=== PATIENT | female | born 1940 | race Caucasian/White ===

== ENCOUNTER 2017-06-12 12:20 | Inpatient (IN) ==
--- NOTE | 2017-06-12 12:28 | Emergency Department Note ---
Nausea/Vomiting/Diarrhea HPI - General Chief complaint: Nausea/Vomiting/Diarrhea Stated complaint: N/V, UTI, constipation Time Seen by Provider: 06/12/17 12:27 Mode of arrival: ambulatory - History of Present Illness HPI Narrative: 77-year-old female comes to the ER for abdominal pain. She states she's been having pain for several days and recently started vomiting. Vomiting started on Thursday, was seen here in the ER by Dr. Galeana when abdominal pelvic CT and labs were perfomed. There was some mild wall thickening and pericolonic inflammation on the CT. Patient also had a UTI and was treated with Septra. Patient returned the following day with nausea as a result of the antibiotic. Was told to stop Septra and start Cipro however she never collected the medicine from the pharmacy. Pain and vomiting has worsened and patient went to urgent care today and was sent over here by their provider. Currently complaining of nausea, vomiting, constipation (last bowel movement was 7 days ago), abdominal pain all over, worse at upper central abdomen. - Related Data Home Medications Medication Instructions Recorded Confirmed Naproxen (Pp) [Aleve (Pp)] 220 mg PO PRN PRN 06/08/17 06/12/17 Previous Rx's Medication Instructions Recorded HYDROcodone/APAP 5/325MG [[place] 1 tab PO Q6HP PRN #20 tab 05/19/16 5/325Mg] Allergies Allergy/AdvReac Type Severity Reaction Status Date / Time No Known Drug Allergies Allergy Verified 06/12/17 11:47 Review of Systems Constitutional: Denies: fever, chills Cardiovascular: Reports: edema (mild in ankles). Denies: chest pain, dyspnea on exertion Respiratory: Denies: cough, dyspnea, wheezes Gastrointestinal: Reports: as per HPI Genitourinary: Reports: urgency, dysuria, frequency Musculoskeletal: Reports: back pain (left lower). Denies: joint swelling Integumentary: Denies: rash Neurological: Denies: headache Past Medical History - Past Medical History Attestation: Yes: The following information was validated with the patient. Medical history: Reports: arthritis, other (Asthma). Denies: cancer, coronary artery disease, CVA, diabetes, hypertension, myocardial infarction, TIA Surgical history ED: Reports: appendectomy, cataract, cholecystectomy, other ( cardiac ablation of E- pathway, tubal ligation, carpal tunnel (2 left, 1 right ( ?)), left arm nerve (ulnar n.?), cervical fusion multilevel, bilateral breast implants.) - Social History smoking status: Never smoker Alcohol use: Reports: None, Occasionally (1-2 wine per week.) Drug use: Reports: none Physical Exam - General Limitations: no limitations General appearance: alert, in no apparent distress, other (appears tired. here with daughter) - Eye Eye exam: Present: normal appearance - ENT ENT exam: normal exam, normal oropharynx, mucous membranes dry, TM's normal bilaterally - Neck Neck exam: Present: normal inspection, full ROM. Absent: tenderness, meningismus, lymphadenopathy - Respiratory Respiratory exam: Present: normal lung sounds bilaterally. Absent: respiratory distress, wheezes - Cardiovascular Cardiovascular exam: Present: regular rate, normal rhythm - Abdominal Exam Abdominal exam: Present: soft, tenderness (diffusely tender, worse at right upper and central upper, unable to asses organomegaly or mass due to sensitivity ), hypoactive bowel sounds. Absent: distention - Extremities Exam Extremities exam: Present: normal inspection, full ROM, normal capillary refill. Absent: tenderness, pedal edema - Back Exam Back exam: Present: CVA tenderness (L). Absent: CVA tenderness (R) - Neurological Exam Neurological exam: Present: alert, oriented X3 - Psychiatric Psychiatric exam: Present: normal affect - Skin Skin exam: Present: warm, dry, intact. Absent: normal color (pale), rash Course Course Narrative: IV fluids, Rocephin 1 gram, Zofran and Dilaudid given. Pt is much more comfortable after Dilaudid. Has been NPO. Discussed with Dr. Huffman hospitalist at 1500. Admit to floor based on UTI and colitis, unable to keep down medications. Vital Signs Temperature 98.6 F 06/12/17 12:22 Pulse Rate 90 06/12/17 12:22 Respiratory Rate 18 06/12/17 12:22 Blood Pressure 125/80 06/12/17 12:22 Pulse Oximetry (%) 97 06/12/17 12:22 Temperature 98.6 F 06/12/17 17:22 Pulse Rate 85 06/12/17 17:22 Respiratory Rate 18 06/12/17 17:22 Blood Pressure 125/63 06/12/17 17:22 Pulse Oximetry (%) 93 06/12/17 17:22 Nausea/Vomiting/Diarrhea - Lab Data Lab results reviewed: Yes I reviewed the patient's lab results. Result diagrams: 06/12/17 13:30 Lab Results 06/12/17 06/12/17 06/12/17 Range/Units 13:30 13:30 15:45 WBC 10.3 (4.5-11.0) K/mcL RBC 4.15 (4.00-5.20) M/mcL Hgb 10.7 L (12.0-15.0) g/dL Hct 32.1 L (36.0-48.0) % POC Hct 33.0 L (36.0-48.0) % MCV 77.4 L (80.0-100.0) fL MCH 25.8 L (26.0-34.0) pg MCHC 33.3 (31.0-36.0) g/dL RDW 14.7 H (11.5-14.5) % Plt Count 317 (140-440) K/mcL MPV 8.3 (7.4-10.4) fL Gran % 84.8 H (38.0-78.0) % Lymph % (Auto) 4.9 L (15.5-49.0) % [place] % (Auto) 10.2 (1.0-12.0) % Eos % (Auto) 0.1 (0.0-7.0) % Baso % (Auto) 0 (0.0-2.0) % Gran # 8.8 H (1.8-8.0) K/mcL Lymph # (Auto) 0.5 L (1.5-4.8) K/mcL [place] # (Auto) 1.1 H (0.1-0.9) K/mcL Eos # (Auto) 0 (0.0-0.7) K/mcL Baso # (Auto) 0 (0.0-0.3) K/mcL VBG Lactic Acid 0.7 (0.5-2.2) mmol/L POC Sodium 135 (133-145) mmol/L POC Potassium 3.4 (3.3-5.1) mmol/L POC Chloride 98 (96-108) mmol/L POC Total CO2 24 (22-30) mmol/L POC BUN 15 (8-23) mg/dl POC Creatinine 0.5 L (0.6-1.1) mg/dl POC Glucose 96 (70-105) mg/dL POC WB Ioniz Calcium 1.15 L (1.16-1.32) mmol/L Lipase 39 (7-60) U/L anemia is stable, WBC elevated to 10.3K from 6K4 days ago. - Radiology Data Radiology results reviewed: Yes I reviewed the patient's radiology results. Disposition Pt seen by OWNER OPERATOR [employer]IVER/PA only: No (Dr. Huffman) Clinical Impression: UTI due to Klebsiella species, Colitis Disposition: Xfer As Outpt/Obs ([facility]) Condition: Fair
[2017-06-12] MEDS ORDERED: ONDANSETRON 4 MG/2 ML VIAL IV ONE (13:09)
[2017-06-12] MEDS ORDERED: cefTRIAXone 1 GM in DEXTROSE 5% IN WATER 50 ML IV ONE (13:12)
[2017-06-12 13:50] LABS: Basophils # (Auto) 0 K/mcL (0.0-0.3); Basophils % (Auto) 0 % (0.0-2.0); Eosinophils # (Auto) 0 K/mcL (0.0-0.7); Eosinophils % (Auto) 0.1 % (0.0-7.0); Granulocytes % (Auto) 84.8 % (38.0-78.0); Lymphocytes # (Auto) 0.5 K/mcL (1.5-4.8); Lymphocytes % (Auto) 4.9 % (15.5-49.0); Mean Cell Volume 77.4 fL (80.0-100.0); Mean Corpuscular HGB Conc 33.3 g/dL (31.0-36.0); Mean Corpuscular Hemoglobin 25.8 pg (26.0-34.0); Monocytes # (Auto) 1.1 K/mcL (0.1-0.9); Monocytes % (Auto) 10.2 % (1.0-12.0); Platelet Count 317 K/mcL (140-440); RBC 4.15 M/mcL (4.00-5.20); Red Cell Distribution Width 14.7 % (11.5-14.5)
[2017-06-12 14:15] LABS: Lipase 39 U/L (7-60)
[2017-06-12] MEDS: HYDROmorphone 2 MG/ML SYRINGE IV PRN ×4 (14:23→22:51)
--- NOTE | 2017-06-12 14:40 | XRay Report ---
CLINICAL INFORMATION: Pelvic pain and vomiting and constipation COMPARISON: Abdomen and pelvic CT from four days prior 06/08/2017. FINDINGS: The transverse segment colon is moderately dilated and demonstrates mild wall thickening. Normal amount of stool and gas seen within the ascending, descending and rectosigmoid segments. Stomach and small bowel are grossly normal. No free air, soft tissue mass or pathologic calcification IMPRESSION: Moderate dilatation of the transverse segment of colon with mild wall thickening. On the recent abdominal CT, there was wall thickening and pericolonic edema/inflammation of the descending and rectosigmoid segments of the colon. While this may be related to diverticulitis, it is nonspecific and may also be attributed to inflammatory, infectious or even ischemic colitis. Suggest: Colonoscopy for more specific diagnosis Interpreted and Authenticated by: Valentin Torres 06/12/17
[2017-06-12] MEDS: 0.9 % SODIUM CHLORIDE 1,000 ML IV SCH ×2 (15:15→22:54)
[2017-06-12] MEDS ORDERED: ACETAMINOPHEN 325 MG TABLET PO PRN (17:16)
[2017-06-12] MEDS ORDERED: ONDANSETRON ODT 4 MG TABLET SL PRN (17:16)
[2017-06-12] MEDS ORDERED: FLEETS ADULT ENEMA PR PRN (17:16)
--- NOTE | 2017-06-12 17:24 | Internal Med History&Physical ---
Medical - H&P: HPI Patient information: Note initiated : 06/12/17 at 5:22 pm Patient: Caroline Bellamy a 77 y/o F admitted on 06/12/17 for N/V, UTI, constipation. Chief Complaint: Abdominal pain, nausea, vomiting History of present illness: Ms. Adiel Cardoso is a 77 year old F who presents to the ED with ongoing complaints of abdominal pain. Patient awoke last Thursday with abdominal pain. She was also nauseated. She was seen in the emergency department due to ongoing symptoms on Thursday, 06/08. CT scan at that time showed some colonic thickening and wall edema without significant inflammatory changes. There was also diverticulosis. She had evidence of urinary tract infection and was started on Septra. Patient remained nauseated and was unable to take the Septra. She continued to have significant abdominal pain, up to 06/09. On the day following her ED visit , she was nauseated and was unable to keep anything down. She presented back to the emergency department, had Bactrim stopped and was changed over to ciprofloxacin. Neither the patient nor her family were aware that a new prescription of been generated and it was never picked up. On Thursday and she continued to have vomiting which was without blood. She continued to have significant abdominal pain up to "08/09". She presents back to the emergency department today because of ongoing abdominal pain, nausea and vomiting. With the onset of the pain a week ago, the pain was severe and was in the left lower quadrant, changing over to the right lower quadrant and becoming generalized as last week has progressed. She describes the quality of the pain is constant and aching with intermittent bouts of stabbing pain. Associated with nausea, vomiting without hematemesis. She has hydrocodone prescription for chronic back pain, that has helped her pain somewhat, though she has had some difficulty keeping medications down. She tried an oral Zofran, was able to keep one done yesterday, but not today. Patient's also noted that her urine is becoming darker. She is also complaining of not having a bowel movement the last 1 week. She's tried some [id number] laxatives and MiraLAX, but has thrown up most oral intake. Patient reports that she's been burping a lot. She's felt chilled and had a fever to about 100. She's had intermittent headache. She has arthritis with chronic upper and lower back pain which is unchanged. She denies any vision changes, sore throat, dyspnea, chest pain, diarrhea, dysuria, but is complaining of frequent small urinary voids. No focal neurologic symptoms. Because of ongoing pain and nausea and vomiting 3 presents the emergency department. Plain films revealed dilated transverse colon with some mural thickening on plain film. She does not have a significant leukocytosis, but has significant abdominal tenderness on exam. Given her intractable nausea and vomiting, inability to keep down oral medications including antibiotics for urinary tract infection, the patient's being admitted for further evaluation and symptom control and treatment of UTI. Review of systems: Except as noted in the HPI, the remainder of a 13 point review of systems in negative. Medical - H&P: PMH Medical history: Asthma, mild Arthritis of back Pulmonary fibrosis, noted on CT scan Surgical history: s/p Appendectomy s/p Cholecystectomy s/p BTL Pertinent family history: Mother at advanced age of a blood disorder (perhaps leukemia) Father of lung cancer, was a smoker Functional capacity: independent ambulation Smoking status: Never smoker Alcohol use: occasionally Medical - H&P: Meds Home Medications Medication Instructions Recorded Confirmed Type HYDROcodone/APAP 5/325MG [[place] 1 tab PO Q6HP PRN #20 tab 05/19/16 06/12/17 Rx 5/325Mg] Naproxen (Pp) [Aleve (Pp)] 220 mg PO PRN PRN 06/08/17 06/12/17 History Allergies Allergy/AdvReac Type Severity Reaction Status Date / Time No Known Drug Allergies Allergy Verified 06/12/17 11:47 Medical - H&P: Exam - Constitutional Vitals: Temp Pulse Resp BP Pulse Ox 98.6 F 85 18 125/63 93 06/12/17 12:22 06/12/17 16:45 06/12/17 12:22 06/12/17 16:45 06/12/17 16:45 General appearance: cooperative, mild distress - Head Head exam: Present: atraumatic, normal inspection - Eye Eye exam: Present: normal appearance, PERRL. Absent: conjunctival injection, scleral icterus - ENT ENT exam: Present: mucous membranes moist, normal oropharynx - Neck Neck exam: Present: full ROM, lymphadenopathy. Absent: meningismus, thyromegaly - Respiratory Respiratory exam: Present: wheezes (Scattered inspiratoroy wheezes). Absent: accessory muscle use, prolonged expiratory phase, respiratory distress - Cardiovascular Cardiovascular exam: Present: normal rate and rhythm. Absent: +S3, +S4 - Expanded Cardiovascular Exam Type of murmur: Present: systolic Location: Present: LLSB Intensity: 2/6 Peripheral pulses: 2+: carotid (L), carotid (R) - GI/Abdominal GI/Abdominal exam: Present: normal bowel sounds, soft, tenderness (moderate RLQ> LLQ tenderness, mild BUQ tenderness.). Absent: organomegaly, pulsatile mass, rebound, rigid - Extremities Exam Extremities exam: Present: normal inspection, pedal edema (Trace). Absent: calf tenderness, joint swelling - Back Exam Back exam: Absent: CVA tenderness (L), CVA tenderness (R) - Neurological Exam Neurological exam: Present: alert, CN II-XII intact, oriented X3. Absent: motor sensory deficit - Expanded Neurological Exam Speech: Present: fluid speech - Psychiatric Psychiatric exam: Present: normal affect, normal mood - Skin Skin exam: Present: dry, warm Medical - H&P: Reslt - Labs CBC & Chem 7: 06/12/17 13:30 Labs: Laboratory Results - last 24 hr 06/12/17 06/12/17 06/12/17 13:30 13:30 15:45 WBC 10.3 RBC 4.15 Hgb 10.7 L Hct 32.1 L POC Hct 33.0 L MCV 77.4 L MCH 25.8 L MCHC 33.3 RDW 14.7 H Plt Count 317 MPV 8.3 Gran % 84.8 H Lymph % (Auto) 4.9 L [place] % (Auto) 10.2 Eos % (Auto) 0.1 Baso % (Auto) 0 Gran # 8.8 H Lymph # (Auto) 0.5 L [place] # (Auto) 1.1 H Eos # (Auto) 0 Baso # (Auto) 0 VBG Lactic Acid 0.7 POC Sodium 135 POC Potassium 3.4 POC Chloride 98 POC Total CO2 24 POC BUN 15 POC Creatinine 0.5 L POC Glucose 96 POC WB Ioniz Calcium 1.15 L Lipase 39 - Imaging and Cardiology CT scan - abdomen Status: image reviewed by me Additional comments: CTAP from 10/9, reviewed MPRESSION: Diverticulosis of the descending and sigmoid colon Dilated intra and extrahepatic bile ducts. This may be a reservoir effect following the prior cholecystectomy or a stricture at the ampulla. Left inguinal hernia Pulmonary fibrosis Abdominal x-ray Status: image reviewed by me Additional comments: Abdomen, 2V X-ray from 06/12, reviewed IMPRESSION: Moderate dilatation of the transverse segment of colon with mild wall thickening. On the recent abdominal CT, there was wall thickening and pericolonic edema/inflammation of the descending and rectosigmoid segments of the colon. While this may be related to diverticulitis, it is nonspecific and may also be attributed to inflammatory, infectious or even ischemic colitis. Suggest: Colonoscopy for more specific diagnosis Medical - H&P: A/P - Narrative A/P Narrative: 77-year-old female without history of prior gastrointestinal issues presents with abdominal pain, nausea and vomiting. CT scan showed some wall thickening of the descending and sigmoid colon. Now is some thickening of the transverse colon on plain films. This is also in the setting of urinary tract infection, Klebsiella on culture, as well as constipation without a bowel movement last week. Abdominal pain. Unclear if this is all secondary to urinary tract infection, though imaging findings concerning for colitis of some form. Colitis may be ischemic, as she has become dehydrated with nausea or vomiting which may have progressed over the week. Probably less likely infectious without significant diarrhea. Differential also includes constipation. Patient without significant fever, no significant leukocytosis, lactate is negative, do not suspect need for urgent consultation. Plan: Inpatient admission, ceftriaxone given in the ED for UTI, will continue, hydrate, analgesics, antiemetics, following exam with above. Nausea with vomiting, intractable. She has evidence of dehydration with concentrated urine and ketosis on urinalysis. Nausea and vomiting likely secondary to abdominal pain, colitis or constipation. Plan: Clear liquid diet, no reds, antiemetics, hydrate, follow exam. Urinary tract infection. Klebsiella on culture Plan: Continue ceftriaxone Constipation. Patient has not had a bowel movement in 1 week. This may be contributing to her abdominal symptoms. She does have evidence of stool in the colon on plain film. Plan: Senna if she is able to take by mouth, Dulcolax suppository when necessary , Fleet Enema when necessary. Asthma, mild at baseline. She does have wheezing though is not using accessory muscles, has good aeration. Plan: When necessary albuterol Chronic back pain. Symptoms are stable. Uses hydrocodone at home. Plan: Continue with hydrocodone, though IV pain medications for abdomen will be used short-term. CODE STATUS, discussed with the patient, is DNR Prophylaxis: Famotidine, enoxaparin.
[2017-06-12] MEDS: ONDANSETRON 4 MG/2 ML VIAL IV PRN (19:09)
[2017-06-12] MEDS: SENNOSIDES 1 TABLET PO SCH (22:39)
[2017-06-12] MEDS: MAGNESIUM HYDROXIDE 30 ML ORAL.SUSP PO PRN (22:40)
[2017-06-12] MEDS: BISACODYL 10 MG SUPP.RECT PR PRN (22:40)
[2017-06-12] MEDS: FAMOTIDINE/PF 20 MG/2 ML VIAL IV SCH (22:40)
[2017-06-12] MEDS: 0.9 % SODIUM CHLORIDE 10 ML SYRINGE IV SCH (22:47)
[2017-06-13] MEDS: HYDROmorphone 2 MG/ML SYRINGE IV PRN ×12 (01:13→23:31)
[2017-06-13] MEDS: HYDROcodone/APAP 5/325MG TABLET PO PRN ×4 (05:27→14:54)
[2017-06-13] MEDS: 0.9 % SODIUM CHLORIDE 1,000 ML IV SCH ×3 (05:30→22:55)
[2017-06-13] MEDS: 0.9 % SODIUM CHLORIDE 10 ML SYRINGE IV SCH ×3 (05:46→21:27)
[2017-06-13 06:34] LABS: Mean Cell Volume 78.4 fL (80.0-100.0); Mean Corpuscular HGB Conc 32.5 g/dL (31.0-36.0); Mean Corpuscular Hemoglobin 25.5 pg (26.0-34.0); Platelet Count 336 K/mcL (140-440); RBC 4.11 M/mcL (4.00-5.20); Red Cell Distribution Width 14.7 % (11.5-14.5)
[2017-06-13 07:04] LABS: ALT/SGPT 46 U/l (0-40); Albumin 3.1 gm/dL (3.2-5.2); Albumin/Globulin Ratio 1.5 (1.0-2.3); Alkaline Phosphatase 158 U/L (39-117); Blood Urea Nitrogen 12 mg/dl (8-23)
[2017-06-13 08:07] LABS: Hypochromasia 1+ (NONE SEEN); Lymphocytes % 8 % (15-49); Monocytes % (Manual) 10 % (1-12); Platelet Estimate NORMAL (NORMAL); RBC Morphology ABN (NORMAL); Segmented Neutrophils % 82 % (38-78)
[2017-06-13] MEDS: cefTRIAXone 1 GM in DEXTROSE 5% IN WATER 50 ML IV SCH (09:11)
[2017-06-13] MEDS: FAMOTIDINE/PF 20 MG/2 ML VIAL IV SCH ×2 (09:11→21:27)
[2017-06-13] MEDS: ENOXAPARIN 40 MG/0.4 ML SYRINGE SQ SCH (09:11)
[2017-06-13] MEDS: ONDANSETRON 4 MG/2 ML VIAL IV PRN ×2 (09:45→15:25)
[2017-06-13] MEDS: ALBUTEROL SULFATE 2.5 MG/3 ML NEBULIZER NEB PRN ×2 (11:12→19:00)
[2017-06-13] MEDS ORDERED: HYDROmorphone 2 MG/ML SYRINGE ONE (12:35)
[2017-06-13] MEDS ORDERED: IOPAMIDOL 100 ML BOTTLE IV ONE (14:54)
--- NOTE | 2017-06-13 18:33 | Internal Med Progress Note ---
Medical - PN: Subj Patient information: Note initiated : 06/13/17 at 6:31 pm Service Date, if different from initiated Date: [] Patient: Caroline Bellamy a 77 y/o F admitted on 06/12/17 for N/V, UTI, constipation. Chief Complaint: f/u abdominal pain, nausea Interval history: June 12 Ms. Adiel Cardoso is a 77 year old F who presents to the ED with ongoing complaints of abdominal pain. Patient awoke last Thursday with abdominal pain. She was also nauseated. She was seen in the emergency department due to ongoing symptoms on Thursday, 06/08. CT scan at that time showed some colonic thickening and wall edema without significant inflammatory changes. There was also diverticulosis. She had evidence of urinary tract infection and was started on Septra. Patient remained nauseated and was unable to take the Septra. She continued to have significant abdominal pain, up to 06/09. On the day following her ED visit , she was nauseated and was unable to keep anything down. She presented back to the emergency department, had Bactrim stopped and was changed over to ciprofloxacin. Neither the patient nor her family were aware that a new prescription of been generated and it was never picked up. On Thursday and she continued to have vomiting which was without blood. She continued to have significant abdominal pain up to "08/09". She presents back to the emergency department today because of ongoing abdominal pain, nausea and vomiting. With the onset of the pain a week ago, the pain was severe and was in the left lower quadrant, changing over to the right lower quadrant and becoming generalized as last week has progressed. She describes the quality of the pain is constant and aching with intermittent bouts of stabbing pain. Associated with nausea, vomiting without hematemesis. She has hydrocodone prescription for chronic back pain, that has helped her pain somewhat, though she has had some difficulty keeping medications down. She tried an oral Zofran, was able to keep one done yesterday, but not today. June 13 She is still complaining of significant abdominal pain, more so on the right side from the right upper and right lower quadrant. Tolerating clears, nausea has improved, no ecchymosis. She did have one small hard bowel movement, then to softer ones. She did receive bisacodyl rectally, also oral milk of magnesia and senna last evening. No fever, no chills. No significant dyspnea, has used 1 as needed nebulizer therapy. CT of the abdomen and pelvis was obtained due to ongoing pain. Spoke with radiology, films reviewed, she has dilated colon, ascending, transverse, descending with a transition point in the sigmoid where it decompresses. No pericolonic inflammatory changes, no mural thickening. Patient currently undergoing delayed images to see if there is passage of contrast. - Constitutional Vitals: Vital Signs Temp Pulse Resp BP Pulse Ox 98 F 96 H 20 138/81 94 06/13/17 15:35 06/13/17 04:00 06/13/17 15:35 06/13/17 15:35 06/13/17 15:35 Period Temp Pulse Resp BP Sys/[place] Pulse Ox Last 24 Hr 97 F-98.2 F 75-96 17-22 122-166/72-87 91-97 Intake and Output 06/13/17 06/13/17 06/13/17 05:59 13:59 21:59 Intake Total 1380 / 1380 450 / 450 360 / 360 Output Total 50 / 50 50 / 50 Balance 1330 / 1330 400 / 400 360 / 360 Intake & Output: Intake & Output 06/13/17 06/13/17 06/13/17 05:59 13:59 21:59 Intake Total 1380 / 1380 450 / 450 360 / 360 Output Total 50 / 50 50 / 50 Balance 1330 / 1330 400 / 400 360 / 360 Intake: IV 990 / 990 50 / 50 Rocephin 1 gm In Dextrose 5% in 50 / 50 Water 50 ml @ 100 mls/hr IV Q24H KRISS Rx#:[id number] Oral 390 / 390 400 / 400 360 / 360 Output: Void Amount 50 / 50 50 / 50 Other: # Voids 1 1 # Bowel Movements 1 1 - Additional findings Additional findings: General: Laying in bed, nontoxic Chest: Scattered expiratory wheezes Cardiovascular: Regular rate and rhythm, trace peripheral edema Abdomen: Active bowel sounds, mild to moderate tenderness, particularly in the right upper and right lower quadrants, though abdomen is diffusely tender without guarding or rebound. Skin: No rash, skin turgor normal Neuro: Awake, alert, oriented 3, moves all extremities Medical - PN: Obj Da - Labs CBC & Chem 7: 06/13/17 05:15 06/13/17 05:15 Labs: Abnormal Lab Results 06/13/17 06/13/17 06/12/17 05:15 05:15 13:30 Hgb 10.5 L Hct 32.2 L POC Hct 33.0 L MCV 78.4 L MCH 25.5 L RDW 14.7 H Gran % Lymph % (Auto) Gran # Lymph # (Auto) Valley # (Auto) Seg Neutrophils % 82 H Lymphocytes % 8 L Hypochromasia 1+ A Microcytosis 1+ A Creatinine 0.5 L POC Creatinine 0.5 L Calcium 8.2 L POC WB Ioniz Calcium 1.15 L AST 58 H ALT 46 H Alkaline Phosphatase 158 H Total Protein 5.2 L Albumin 3.1 L Globulin 2.1 L 06/12/17 13:30 Hgb 10.7 L Hct 32.1 L POC Hct MCV 77.4 L MCH 25.8 L RDW 14.7 H Gran % 84.8 H Lymph % (Auto) 4.9 L Gran # 8.8 H Lymph # (Auto) 0.5 L Valley # (Auto) 1.1 H Seg Neutrophils % Lymphocytes % Hypochromasia Microcytosis Creatinine POC Creatinine Calcium POC WB Ioniz Calcium AST ALT Alkaline Phosphatase Total Protein Albumin Globulin Meds: Medications Acetaminophen (Tylenol) 650 mg PO Q6HP PRN PRN Reason: PAIN/FEVER > 101 Hydrocodone Bitart/Acetaminophen ([place]orton 5/325mg) 1 tab PO Q4HP PRN PRN Reason: Pain Last Admin: 06/13/17 14:54 Dose: 1 tab Albuterol Sulfate (Ventolin) 2.5 mg NEB Q2HP PRN PRN Reason: Shortness Of Breath Last Admin: 06/13/17 11:12 Dose: 2.5 mg Bisacodyl (Dulcolax) 10 mg ME Q2-3DAYS PRN PRN Reason: Constipation Last Admin: 06/12/17 22:40 Dose: 10 mg Enoxaparin Sodium (Lovenox) 40 mg SQ DAILY KRISS Last Admin: 06/13/17 09:11 Dose: 40 mg Famotidine (Pepcid) 20 mg IV Q12 KRISS Last Admin: 06/13/17 09:11 Dose: 20 mg Hydromorphone HCl (Dilaudid) 0.5 mg IV Q1HP PRN PRN Reason: Pain Last Admin: 06/13/17 16:48 Dose: 0.5 mg Ceftriaxone Sodium 1 gm/ (Dextrose) 50 mls @ 100 mls/hr IV Q24H [facility] Last Infusion: 06/13/17 09:40 Dose: Infused Sodium Chloride (Sodium Chloride 0.9%) 1,000 mls @ 100 mls/hr IV .Q10H KRISS Last Admin: 06/13/17 13:50 Dose: 100 mls/hr Magnesium Hydroxide (Milk Of Magnesia) 30 ml PO DAILYP PRN PRN Reason: Constipation Last Admin: 06/12/17 22:40 Dose: 30 ml Ondansetron HCl (Zofran) 4 mg IV Q6HP PRN PRN Reason: Nausea And Vomiting Last Admin: 06/13/17 15:25 Dose: 4 mg Ondansetron HCl (Zofran Odt) 4 mg SL Q6HP PRN PRN Reason: Nausea And Vomiting Senna (Senokot) 2 tab PO HS KRISS Last Admin: 06/12/17 22:39 Dose: 2 tab Sodium Biphosphate/Sodium Phosphate (Fleets Adult) 1 dose ME Q3-4DAYS PRN PRN Reason: Constipation Sodium Chloride (Saline Flush) 10 ml IV Q8 [facility] Last Admin: 06/13/17 14:27 Dose: Not Given - Imaging and cardiology CT scan - abdomen Status: image reviewed by me Additional comments: Discussed with radiology, preliminarily dilated ascending, transverse, descending and proximal sigmoid colon with transition point in decompression. Delayed images for passage of contrast to the rectum are pending. Medical - PN: A/P - Narrative A/P Narrative: 77-year-old female without GI illness presents with abdominal pain, nausea and vomiting. Also has urinary tract infection. Abdominal pain. Concerning for partial or full colonic obstruction of unclear etiology. No inflammatory change or wall thickening to suggest colitis or toxic megacolon as cause of findings. Follow-up imaging pending to evaluate for full contrast passage into the rectum. May explain lack of BM's in past week. Findings have progressed since first presentation on Thursday (06/08). Plan: Continue ceftriaxone for UTI; continue to hydrate, analgesics, antiemetics. Follow-up final CT results, may need surgical or GI consultation. Nausea with vomiting, intractable. Suspect due to colon process above. Plan: Continue clear liquid diet, no reds, antiemetics, hydration. NPO after midnight, in case needs any procedures. Urinary tract infection. Klebsiella on culture Plan: Continue ceftriaxone Constipation. Had 3 bowel movements after bowel care, suspect was fecal material in the distal colon rather than transiting from above. Plan: Continue with bowel care Asthma, mild at baseline. Scattered wheezes on exam, but no respiratory distress. Plan: Continue PRN albuterol Chronic back pain. Symptoms are stable. Uses hydrocodone at home. Plan: Continue with hydrocodone, though IV pain medications for abdomen will be used short-term. CODE STATUS, discussed with the patient, is DNR Prophylaxis: Famotidine, enoxaparin.
--- NOTE | 2017-06-13 20:07 | Cat Scan Report ---
CLINICAL INFORMATION: Abdominal pain and distention. Nausea and vomiting COMPARISON: Abdomen and pelvic CT five days prior - 06/08/2017. TECHNIQUE: Following enteric contrast, 80 cc of Isovue-300 were injected intravenously, and 60 seconds later, 2.5 mm helical slices were obtained from the mid heart through the subtrochanteric regions. Following reconstruction, 2.5 mm sagittal, coronal and axial reformatted images were processed and reviewed at bone, lung and soft tissue windows. Five minutes later, 5 mm helical slices were obtained from the mid heart through the kidneys and viewed at soft tissue windows. FINDINGS: Moderate bilateral pleural effusions have increased in size considerably. Fibrotic stranding and/or atelectasis in both lower lobes again noted. The heart is grossly normal in size and configuration. Calcified bilateral breast implants seen - as before Images through the abdomen show mild fatty change within the liver. No focal hepatic lesions. The gallbladder is surgically absent. There is moderate dilatation of the intrahepatic, common hepatic and common bile ducts as previously seen: Common bile is 8 mm. There is abrupt tapering at the ampullary region. 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 Pancreatic duct is also mildly dilated - 3 mm the lesion pancreas is unremarkable otherwise. Both kidneys, adrenal glands, spleen and aorta including aortic branches are normal in size, configuration and attenuation without focal lesion. Images through the pelvis the urinary bladder to be unremarkable. Anteflexed postmenopausal uterus is normal. Small hiatal hernia is noted. The stomach and small bowel are unremarkable. There is moderate dilatation of the colon to the level of the mid sigmoid region where there is abrupt transition into a decompressed distal sigmoid and rectum. Three hour delayed images show this pattern persisted adenopathy is suspicious for partial distal colonic obstruction. Moderate free peritoneal fluid has increased since the previous study could indicate early third spacing A small amount of fluid is now seen within the left inguinal hernia sac. No free air. Bone windows show no seen osseous abnormality IMPRESSION: Partial obstruction of the mid sigmoid colon. Etiology is uncertain. The patient may have diverticulitis progressing into an inflammatory stricture. Moderate for a fluid, increasing since the comparison study is five days prior, suggest possible third spacing. No free air to suggest bowel rupture. Multiple moderately enlarged retroperitoneal lymph nodes in the peripancreatic and upper periaortic region which are unchanged from previous study. These likely represent benign reactive lymph nodes related to inflammation. Neoplastic adenopathy representing lymphoma or metastases would be less likely. Suggest abdomen CT with patient returns to clinical baseline. Any failure to involute, might necessitate biopsy for pathologic diagnosis. 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 This is unchanged Moderate bilateral pleural fusions - increasing from the study five days prior. The most common cause would be CHF. Please correlate with chest x-ray Small left inguinal hernia which now contains a small amount of peritoneal fluid Interpreted and Authenticated by: Valentin Torres 06/13/17
[2017-06-13] MEDS: MAG HYDROX/AL HYDROX/SIMETH 30 ML ORAL.SUSP PO PRN (21:26)
[2017-06-13] MEDS: MAGNESIUM HYDROXIDE 30 ML ORAL.SUSP PO PRN (21:26)
[2017-06-13] MEDS: SENNOSIDES 1 TABLET PO SCH (21:27)
[2017-06-13] MEDS: BISACODYL 10 MG SUPP.RECT PR PRN (21:27)
[2017-06-14] MEDS: ONDANSETRON 4 MG/2 ML VIAL IV PRN (00:15)
[2017-06-14] MEDS: HYDROmorphone 2 MG/ML SYRINGE IV PRN ×7 (00:24→21:24)
[2017-06-14] MEDS: 0.9 % SODIUM CHLORIDE 10 ML SYRINGE IV SCH ×3 (05:29→22:11)
[2017-06-14 06:13] LABS: Mean Cell Volume 79.1 fL (80.0-100.0); Mean Corpuscular HGB Conc 32.5 g/dL (31.0-36.0); Mean Corpuscular Hemoglobin 25.7 pg (26.0-34.0); Platelet Count 383 K/mcL (140-440); RBC 4.19 M/mcL (4.00-5.20); Red Cell Distribution Width 14.8 % (11.5-14.5)
[2017-06-14] MEDS: MAG HYDROX/AL HYDROX/SIMETH 30 ML ORAL.SUSP PO PRN (06:17)
[2017-06-14] MEDS: HYDROcodone/APAP 5/325MG TABLET PO PRN ×2 (06:17→11:26)
[2017-06-14 06:21] LABS: ALT/SGPT 59 U/l (0-40); Albumin 2.9 gm/dL (3.2-5.2); Albumin/Globulin Ratio 1.1 (1.0-2.3); Alkaline Phosphatase 230 U/L (39-117); Blood Urea Nitrogen 13 mg/dl (8-23)
[2017-06-14] MEDS: ALBUTEROL SULFATE 2.5 MG/3 ML NEBULIZER NEB PRN ×4 (06:48→19:17)
[2017-06-14] MEDS ORDERED: FUROSEMIDE 20 MG/2 ML VIAL IV ONE (07:16)
[2017-06-14 08:23] LABS: Band Neutrophils % 4 % (0-10); Hypochromasia 1+ (NONE SEEN); Lymphocytes % 3 % (15-49); Monocytes % (Manual) 9 % (1-12); Platelet Estimate NORMAL (NORMAL); RBC Morphology ABN (NORMAL); Segmented Neutrophils % 84 % (38-78)
[2017-06-14] MEDS: ENOXAPARIN 40 MG/0.4 ML SYRINGE SQ SCH (09:07)
[2017-06-14] MEDS: FAMOTIDINE/PF 20 MG/2 ML VIAL IV SCH (09:07)
[2017-06-14] MEDS: cefTRIAXone 1 GM in DEXTROSE 5% IN WATER 50 ML IV SCH (09:07)
[2017-06-14] MEDS: 0.9 % SODIUM CHLORIDE 1,000 ML IV SCH ×3 (11:26→20:17)
[2017-06-14] MEDS: PIPERACILLIN SODIUM/TAZOBACTAM 3.375 GM in DEXTROSE 5% IN WATER 50 ML IV SCH ×2 (11:26→20:38)
[2017-06-14] MEDS ORDERED: metroNIDAZOLE 500 MG/100 ML BAG IV ONE (12:26)
--- NOTE | 2017-06-14 12:41 | General Surgery Consult Note ---
History of Present Illness Patient information: Note initiated : 06/14/17 at 12:37 pm Service Date, if different from initiated Date: [] Patient: Caroline Bellamy 77 y/o F admitted on 06/12/17 for N/V, UTI, constipation. Chief Complaint: [] Reason for consult: abdominal pain Requesting physician: Harper Huffman History of present illness: 77-year-old female who was admitted with suspected colonic obstruction. The patient has a history of pain in her left lower quadrant dating back to 03 June. She has been having regular bowel movements but she has had nausea with vomiting since 05 June. She has had worsening distention over the past 3 days. Her son thinks that she had some blood in her bowel movements a few days ago. She has not had any significant p.o. intake for at least 9 days. It is unknown if she has weight loss. She has been seen in the emergency room with these complaints and was initially treated with UTI but symptoms did not improve. She returned and was noted to have significant dilation of her colon and CT was done which showed dilation of the colon down to the sigmoid with abrupt transition in the sigmoid with decompressed rectosigmoid distally. She is felt to have either a high-grade inflammatory stricture or neoplasm. Her cecum is now 11 cm dilated and the colon is diffusely dilated from the sigmoid around to the cecum she has an incompetent ileocecal valve and there is minimal small bowel dilation. Patient has a tender abdomen with more tenderness on the right than on the left suggestive that she has begun to have some ischemic or major diagonal dilatory changes in her right colon and she will need to have urgent surgery. She is counseled for this and is informed that she will have a sigmoid resection with colostomy and we will consider re-anastomosis in 3-4 months if she does well otherwise. Review of Systems - Constitutional malaise, weight loss - EENT Nose, mouth and throat: abnormal hearing, no neck pain, no throat swelling, no vertigo - Cardiovascular no chest pain, no chest pain with activity, no dyspnea on exertion, no irregular heart rhythm, no palpatations, no rapid heart rate, no syncope - Respiratory wheezing, no chest congestion - Gastrointestinal abdominal pain, bloating, change in stool character, constipation, dyspepsia, nausea, vomiting, no hematochezia, no melena - Genitourinary Genitourinary: no difficulty urinating, no dysuria, no pelvic pain, no urinary frequency, no urinary incontinence - Musculoskeletal arthralgias, back pain - Integumentary no pruritus, no rash - Neurological abnormal hearing, dizziness, no confusion, no syncope, no weakness - Psychiatric no anxiety, no confusion, no depression, no memory loss - Endocrine fatigue, no palpitations - Hematologic/Lymphatic no easy bleeding, no easy bruising, no lymphadenopathy - Allergic/Immunologic no tongue swelling, no uticaria, no wheezing, no GI upset with certain foods, no lip swelling Past History Past medical history: Left inguinal hernia Chronic anemia Urinary tract infection History of tachyarrhythmia status post ablation Past surgical history: Breast augmentation Cervical fusion Appendectomy Cholecystectomy Tubal ligation Bilateral carpal tunnel release Past family history: Mother age 82 due to leukemia Father age 83 due to lung cancer Multiple siblings with variable cancers including breast cancer, bladder cancer , kidney cancer, laryngeal cancer Past social history: Never smoker Drinks wine once or twice weekly Denies drug use Lives alone Still employed Medications and Allergies Home Medications Medication Instructions Recorded Confirmed Type HYDROcodone/APAP 5/325MG [Eure 1 tab PO Q6HP PRN #20 tab 05/19/16 06/12/17 Rx 5/325Mg] Naproxen (Pp) [Aleve (Pp)] 220 mg PO PRN PRN 06/08/17 06/12/17 History Allergies Allergy/AdvReac Type Severity Reaction Status Date / Time No Known Drug Allergies Allergy Verified 06/12/17 11:47 Exam Temp Pulse Resp BP Pulse Ox 97.8 F 97 H 20 126/73 95 06/14/17 11:10 06/14/17 04:00 06/14/17 11:10 06/14/17 11:10 06/14/17 11:10 - General physical appearance well developed, well nourished, no distress, moderate distress, moderate pain - Eyes PERRL, normal ocular movement - ENT normal pinna, normal nares, normal mucosa, no hearing loss, no congestion, dentures (Partial upper dentures) - Head Head exam IM: Present: atraumatic, normal inspection, normocephalic - Neck no masses, no bruits, trachea midline, no lymphadectomy, no venous distension, other (Full range of motion) - Cardiovascular Cardiovascular exam IM: Present: normal rate and rhythm, RRR, +S1, +S2. Absent : gallop, JVD, systolic murmur - Respiratory normal expansion, normal respiratory effort, clear to percussion wheezing: bilateral - Abdomen Abdomen: Present: soft, tender, bowel sounds, distended (Moderate distention with guarding and left lower quadrant and right lower quadrant; active bowel sounds; diffuse tenderness) Hernia: Present: inguinal (Left inguinal hernia) - Genitourinary Present: normal external genitalia - Integumentary Present: no rash, no growths, no abnormal pigmentation - Neurologic Present: normal coordination, normal sensation - Musculoskeletal Present: normal gait, normal posture - Psychiatric Present: oriented to time, oriented to person, oriented to place, speech is normal, memory intact Results - Labs 06/14/17 04:55 06/14/17 04:55 Abnormal lab results 06/14/17 06/14/17 Range/Units 04:55 04:55 WBC 22.8 H (4.5-11.0) K/mcL Hgb 10.8 L (12.0-15.0) g/dL Hct 33.2 L (36.0-48.0) % MCV 79.1 L (80.0-100.0) fL MCH 25.7 L (26.0-34.0) pg RDW 14.8 H (11.5-14.5) % Seg Neutrophils % 84 H (38-78) % Lymphocytes % 3 L (15-49) % Hypochromasia 1+ A (NONE SEEN) Microcytosis 1+ A (NONE SEEN) Carbon Dioxide 21 L (22-30) mmol/L AST 70 H (0-37) U/l ALT 59 H (0-40) U/l Alkaline Phosphatase 230 H (39-117) U/L Total Protein 5.5 L (5.9-8.4) gm/dL Albumin 2.9 L (3.2-5.2) gm/dL Diabetes panel 06/14/17 Range/Units 04:55 Sodium 134 (133-145) mmol/L Potassium 4.4 (3.3-5.1) mmol/L Chloride 97 (96-108) mmol/L Carbon Dioxide 21 L (22-30) mmol/L BUN 13 (8-23) mg/dl Creatinine 0.6 (0.6-1.1) mg/dl Glucose 101 (70-105) mg/dL Calcium 8.6 (8.6-10.4) mg/dl AST 70 H (0-37) U/l ALT 59 H (0-40) U/l Alkaline Phosphatase 230 H (39-117) U/L Total Protein 5.5 L (5.9-8.4) gm/dL Albumin 2.9 L (3.2-5.2) gm/dL Calcium panel 06/14/17 Range/Units 04:55 Calcium 8.6 (8.6-10.4) mg/dl Albumin 2.9 L (3.2-5.2) gm/dL Pituitary panel 06/14/17 Range/Units 04:55 Sodium 134 (133-145) mmol/L Potassium 4.4 (3.3-5.1) mmol/L Chloride 97 (96-108) mmol/L Carbon Dioxide 21 L (22-30) mmol/L BUN 13 (8-23) mg/dl Creatinine 0.6 (0.6-1.1) mg/dl Glucose 101 (70-105) mg/dL Calcium 8.6 (8.6-10.4) mg/dl Adrenal panel 06/14/17 Range/Units 04:55 Sodium 134 (133-145) mmol/L Potassium 4.4 (3.3-5.1) mmol/L Chloride 97 (96-108) mmol/L Carbon Dioxide 21 L (22-30) mmol/L BUN 13 (8-23) mg/dl Creatinine 0.6 (0.6-1.1) mg/dl Glucose 101 (70-105) mg/dL Calcium 8.6 (8.6-10.4) mg/dl Total Bilirubin 0.4 (0.0-1.0) mg/dL AST 70 H (0-37) U/l ALT 59 H (0-40) U/l Alkaline Phosphatase 230 H (39-117) U/L Total Protein 5.5 L (5.9-8.4) gm/dL Albumin 2.9 L (3.2-5.2) gm/dL All other labs normal. Assessment and Plan (1) Colon obstruction patient is counseled for exploratory laparotomy ; it will be done later today; she is advised that she will have a colostomy for 3-4 months Status: Acute (2) Anemia Status: Acute (3) UTI due to Klebsiella species Status: Acute
[2017-06-14 13:37] LABS: proBNP 540.5 pg/ml (0-450)
[2017-06-14] MEDS ORDERED: ALBUMIN HUMAN 25 GM/100 ML BAG IV ONE ×3 (14:05→15:00)
[2017-06-14] MEDS ORDERED: ROCURONIUM 10 MG/ML ML IV ONE (14:05)
[2017-06-14] MEDS ORDERED: LIDOCAINE HCL/PF 100 MG/5 ML SYRINGE IV ONE (14:05)
[2017-06-14] MEDS ORDERED: PHENYLEPHRINE 10 MG/ML VIAL IV ONE (14:05)
[2017-06-14] MEDS ORDERED: MIDAZOLAM 5 MG/5 ML VIAL IV ONE (14:05)
[2017-06-14] MEDS ORDERED: ONDANSETRON 4 MG/2 ML VIAL IV ONE (14:05)
[2017-06-14] MEDS ORDERED: PROPOFOL 200 MG/20 ML VIAL IV ONE (14:05)
[2017-06-14] MEDS ORDERED: GLYCOPYRROLATE 0.2 MG/ML VIAL IV ONE (14:05)
[2017-06-14] MEDS ORDERED: EPINEPHrine 1 MG/ML ML IV ONE (14:05)
[2017-06-14] MEDS ORDERED: HETASTARCH 6% 500 ML BAG IV ONE (14:05)
[2017-06-14] MEDS ORDERED: fentaNYL 100 MCG/2 ML VIAL IV ONE (14:05)
[2017-06-14] MEDS ORDERED: KETAMINE 100 MG/ML ML IV ONE (14:05)
[2017-06-14] MEDS ORDERED: HYDROmorphone 2 MG/ML SYRINGE IV PRN (15:56)
[2017-06-14] MEDS ORDERED: IPRATROPIUM/ALBUTEROL 3 ML AMPUL.NEB NEB PRN (15:56)
[2017-06-14] MEDS ORDERED: ONDANSETRON 4 MG/2 ML VIAL IV PRN (15:56)
[2017-06-14] MEDS ORDERED: MEPERIDINE 25 MG/ML SYRINGE IV PRN (15:56)
[2017-06-14] MEDS ORDERED: ePHEDrine 50 MG/ML AMPUL IV PRN (15:56)
[2017-06-14] MEDS ORDERED: SCOPOLAMINE 1 PATCH PATCH TOPICAL ONE (15:56)
[2017-06-14] MEDS ORDERED: BENZOCAINE/MENTHOL 1 LOZENGE PO PRN (15:56)
[2017-06-14] MEDS ORDERED: fentaNYL 100 MCG/2 ML VIAL IV PRN (15:56)
[2017-06-14] MEDS ORDERED: METHOCARBAMOL 1,000 MG/10 ML VIAL IV PRN (15:56)
[2017-06-14] MEDS ORDERED: LACTATED RINGERS 1,000 ML IV SCH (16:00)
--- NOTE | 2017-06-14 16:17 | XRay Report ---
CLINICAL INFORMATION: Preop - diffuse wheezing COMPARISON: None. FINDINGS: Cardiomediastinal silhouette and pulmonary vessels are normal. There is now large amount of free intraperitoneal air in the subdiaphragmatic region compatible with bowel rupture. Moderate bibasilar airspace disease likely reflect atelectasis or less likely aspiration. No pleural effusions IMPRESSION: Large amount of free intraperitoneal air - new from CT yesterday. Findings compatible with bowel rupture - likely the large bowel Mild bibasilar atelectasis or aspiration Interpreted and Authenticated by: Valentin Torres 06/14/17
[2017-06-14] MEDS ORDERED: PIPERACILLIN SODIUM/TAZOBACTAM 3.375 GM in DEXTROSE 5% IN WATER 50 ML IV ONE (16:19)
[2017-06-14] MEDS ORDERED: CIPROFLOXACIN 400 MG/200 ML BAG IV ONE ×2 (16:19→16:45)
--- NOTE | 2017-06-14 16:37 | Internal Med Progress Note ---
Medical - PN: Subj Patient information: Note initiated : 06/14/17 at 4:34 pm Service Date, if different from initiated Date: [] Patient: Caroline Bellamy a 77 y/o F admitted on 06/12/17 for N/V, UTI, constipation. Chief Complaint: f/u abd pain Interval history: June 12 Ms. Adiel Cardoso is a 77 year old F who presents to the ED with ongoing complaints of abdominal pain. Patient awoke last Thursday with abdominal pain. She was also nauseated. She was seen in the emergency department due to ongoing symptoms on Thursday, 06/08. CT scan at that time showed some colonic thickening and wall edema without significant inflammatory changes. There was also diverticulosis. She had evidence of urinary tract infection and was started on Septra. Patient remained nauseated and was unable to take the Septra. She continued to have significant abdominal pain, up to 06/09. On the day following her ED visit , she was nauseated and was unable to keep anything down. She presented back to the emergency department, had Bactrim stopped and was changed over to ciprofloxacin. Neither the patient nor her family were aware that a new prescription of been generated and it was never picked up. On Thursday and she continued to have vomiting which was without blood. She continued to have significant abdominal pain up to "08/09". She presents back to the emergency department today because of ongoing abdominal pain, nausea and vomiting. With the onset of the pain a week ago, the pain was severe and was in the left lower quadrant, changing over to the right lower quadrant and becoming generalized as last week has progressed. She describes the quality of the pain is constant and aching with intermittent bouts of stabbing pain. Associated with nausea, vomiting without hematemesis. She has hydrocodone prescription for chronic back pain, that has helped her pain somewhat, though she has had some difficulty keeping medications down. She tried an oral Zofran, was able to keep one done yesterday, but not today. June 13 She is still complaining of significant abdominal pain, more so on the right side from the right upper and right lower quadrant. Tolerating clears, nausea has improved, no ecchymosis. She did have one small hard bowel movement, then to softer ones. She did receive bisacodyl rectally, also oral milk of magnesia and senna last evening. No fever, no chills. No significant dyspnea, has used 1 as needed nebulizer therapy. CT of the abdomen and pelvis was obtained due to ongoing pain. Spoke with radiology, films reviewed, she has dilated colon, ascending, transverse, descending with a transition point in the sigmoid where it decompresses. No pericolonic inflammatory changes, no mural thickening. Patient currently undergoing delayed images to see if there is passage of contrast. June 14 Still complaining of abdominal pain. Had some desaturation overnight, on oxygen. Received dose of furosemide earlier today. Still requiring regular Dilaudid today, though when I see her this morning the interval between when necessary doses has increased somewhat. Final results of CTAP yesterday without passage of contrast. I discussed the case with Dr. Eubanks last evening, he is seeing the patient today , plans to take to the operating room. Her white count was increased to 22,000 today. Ceftriaxone changed to Zosyn this morning. - Constitutional Vitals: Vital Signs Temp Pulse Resp BP Pulse Ox 97.8 F 97 H 20 126/73 95 06/14/17 11:10 06/14/17 04:00 06/14/17 11:10 06/14/17 11:10 06/14/17 13:08 Period Temp Pulse Resp BP Sys/[place] Pulse Ox Last 24 Hr 97.8 F-100.2 F 97-113 17-22 113-167/73-86 93-97 Intake and Output 06/14/17 06/14/17 06/14/17 05:59 13:59 21:59 Intake Total 1258 / 1258 1050 / 1050 Output Total 120 / 120 350 / 350 Balance 1138 / 1138 700 / 700 Weight 170 lb Patient Weight 06/15/17 05:59 Weight 170 lb Intake & Output: Intake & Output 06/14/17 06/14/17 06/14/17 05:59 13:59 21:59 Intake Total 1258 / 1258 1050 / 1050 Output Total 120 / 120 350 / 350 Balance 1138 / 1138 700 / 700 Weight 170 lb Intake: IV 908 / 908 1050 / 1050 Sodium Chloride 0.9% 1,000 ml @ 908 / 908 1000 / 1000 100 mls/hr IV .Q10H [facility] Rx#: [id number] Zosyn 3.375 gm In Dextrose 5% 50 / 50 in Water 50 ml @ 100 mls/hr IV Q6H [facility] Rx#:[id number] Oral 350 / 350 Output: Void Amount 100 / 100 350 / 350 Emesis - Additional findings Additional findings: General: Laying in bed, uncomfortable Chest: Diminished at bases, no rales, unlabored Cardiovascular: Regular rate and rhythm, murmur is unchanged Abdomen: Mildly distended, tender throughout, worse in the right lateral abdomen and hypogastric region. Bowel sounds are active. Neuro: Alert, oriented 3, moves all extremities equally Medical - PN: Obj Da - Labs CBC & Chem 7: 06/14/17 04:55 06/14/17 04:55 Labs: Abnormal Lab Results 06/14/17 06/14/17 06/14/17 12:37 12:37 04:55 WBC Hgb Hct POC Hct MCV MCH RDW Gran % Lymph % (Auto) Gran # Lymph # (Auto) [place] # (Auto) Seg Neutrophils % Lymphocytes % Hypochromasia Microcytosis PT 17.4 H INR 1.4 H APTT 46 H Carbon Dioxide 21 L Creatinine POC Creatinine Calcium POC WB Ioniz Calcium AST 70 H ALT 59 H Alkaline Phosphatase 230 H NT-Pro-B Natriuret Pep 540.5 H Total Protein 5.5 L Albumin 2.9 L Globulin 06/14/17 06/13/17 06/13/17 04:55 05:15 05:15 WBC 22.8 H Hgb 10.8 L 10.5 L Hct 33.2 L 32.2 L POC Hct MCV 79.1 L 78.4 L MCH 25.7 L 25.5 L RDW 14.8 H 14.7 H Gran % Lymph % (Auto) Gran # Lymph # (Auto) [place] # (Auto) Seg Neutrophils % 84 H 82 H Lymphocytes % 3 L 8 L Hypochromasia 1+ A 1+ A Microcytosis 1+ A 1+ A PT INR APTT Carbon Dioxide Creatinine 0.5 L POC Creatinine Calcium 8.2 L POC WB Ioniz Calcium AST 58 H ALT 46 H Alkaline Phosphatase 158 H NT-Pro-B Natriuret Pep Total Protein 5.2 L Albumin 3.1 L Globulin 2.1 L 06/12/17 06/12/17 13:30 13:30 WBC Hgb 10.7 L Hct 32.1 L POC Hct 33.0 L MCV 77.4 L MCH 25.8 L RDW 14.7 H Gran % 84.8 H Lymph % (Auto) 4.9 L Gran # 8.8 H Lymph # (Auto) 0.5 L [place] # (Auto) 1.1 H Seg Neutrophils % Lymphocytes % Hypochromasia Microcytosis PT INR APTT Carbon Dioxide Creatinine POC Creatinine 0.5 L Calcium POC WB Ioniz Calcium 1.15 L AST ALT Alkaline Phosphatase NT-Pro-B Natriuret Pep Total Protein Albumin Globulin Meds: Medications Acetaminophen (Tylenol) 650 mg PO Q6HP PRN PRN Reason: PAIN/FEVER > 101 Last Admin: 06/13/17 23:07 Dose: 650 mg Hydrocodone Bitart/Acetaminophen ([place] 5/325mg) 1 tab PO Q4HP PRN PRN Reason: Pain Last Admin: 06/14/17 11:26 Dose: 1 tab Al Hydrox/Mg Hydrox/Simethicone (Maalox) 30 ml PO Q4-6HP PRN PRN Reason: Dyspepsia Last Admin: 06/14/17 06:17 Dose: 30 ml Albuterol Sulfate (Ventolin) 2.5 mg NEB Q2HP PRN PRN Reason: Shortness Of Breath Last Admin: 06/14/17 11:42 Dose: 2.5 mg Albuterol/Ipratropium (Duoneb) 3 ml NEB ONCE PRN PRN Reason: Wheezing Stop: 06/14/17 17:56 Bisacodyl (Dulcolax) 10 mg [place] Q2-3DAYS PRN PRN Reason: Constipation Last Admin: 06/12/17 22:40 Dose: 10 mg Enoxaparin Sodium (Lovenox) 40 mg SQ DAILY [facility] Last Admin: 06/14/17 09:07 Dose: 40 mg Ephedrine Sulfate (Akovaz) 0 mg IV Q30M PRN PRN Reason: Hypotension Stop: 06/14/17 17:58 Famotidine (Pepcid) 20 mg IV Q12 [facility] Last Admin: 06/14/17 09:07 Dose: 20 mg Fentanyl (Sublimaze) 25 mcg IV Q2M PRN PRN Reason: Pain Stop: 06/14/17 17:56 Hydromorphone HCl (Dilaudid) 0.5 mg IV Q1HP PRN PRN Reason: Pain Last Admin: 06/14/17 11:42 Dose: 0.5 mg Hydromorphone HCl (Dilaudid) 0.5 mg IV Q5MIN PRN PRN Reason: Pain Stop: 06/14/17 17:56 Sodium Chloride (Sodium Chloride 0.9%) 1,000 mls @ 100 mls/hr IV .Q10H [facility] Last Admin: 06/14/17 11:26 Dose: 100 mls/hr Piperacillin Sod/Tazobactam (Sod 3.375 gm/ Dextrose) 50 mls @ 100 mls/hr IV Q6H [facility] Last Infusion: 06/14/17 12:00 Dose: Infused Sodium Chloride (Sodium Chloride 0.9%) 250 mls @ 20 mls/hr IV .[id number] [facility] Stop: 06/15/17 00:59 Lactated Ringer's (Lactated Ringers) 1,000 mls @ 20 mls/hr IV .Q24H [facility] Stop: 06/14/17 17:57 Ciprofloxacin (Cipro) 400 mg in 200 mls @ 200 mls/hr IV ONCE ONE Stop: 06/14/17 17:18 Piperacillin Sod/Tazobactam (Sod 3.375 gm/ Dextrose) 50 mls @ 100 mls/hr IV ONCE ONE Stop: 06/14/17 16:48 Magnesium Hydroxide (Milk Of Magnesia) 30 ml PO DAILYP PRN PRN Reason: Constipation Last Admin: 06/13/17 21:26 Dose: 30 ml Meperidine HCl (Demerol) 12.5 mg IV Q5M PRN PRN Reason: Shivering Stop: 06/14/17 17:56 Methocarbamol (Robaxin) 750 mg IV ONCE PRN PRN Reason: Muscle Spasm Stop: 06/14/17 17:56 Ondansetron HCl (Zofran) 4 mg IV Q6HP PRN PRN Reason: Nausea And Vomiting Last Admin: 06/14/17 00:15 Dose: 4 mg Ondansetron HCl (Zofran Odt) 4 mg SL Q6HP PRN PRN Reason: Nausea And Vomiting Ondansetron HCl (Zofran) 4 mg IV ONCE PRN PRN Reason: Nausea And Vomiting Stop: 06/14/17 17:56 Scopolamine (Transderm-Scop) 1 patch TOPICAL ONCE ONE Stop: 06/14/17 15:57 Senna (Senokot) 2 tab PO HS [facility] Last Admin: 06/13/17 21:27 Dose: 2 tab Sodium Biphosphate/Sodium Phosphate (Fleets Adult) 1 dose [place] Q3-4DAYS PRN PRN Reason: Constipation Sodium Chloride (Saline Flush) 10 ml IV Q8 [facility] Last Admin: 06/14/17 16:10 Dose: Not Given Throat Lozenges (Cepacol) 1 lozenge PO PRN PRN PRN Reason: Sore Throat Stop: 06/14/17 17:56 - Imaging and cardiology CT scan - abdomen Status: image reviewed by me Additional comments: 06/13/2017 IMPRESSION: Partial obstruction of the mid sigmoid colon. Etiology is uncertain. The patient may have diverticulitis progressing into an inflammatory stricture. Moderate for a fluid, increasing since the comparison study is five days prior, suggest possible third spacing. No free air to suggest bowel rupture. Multiple moderately enlarged retroperitoneal lymph nodes in the peripancreatic and upper periaortic region which are unchanged from previous study. These likely represent benign reactive lymph nodes related to inflammation. Neoplastic adenopathy representing lymphoma or metastases would be less likely. Suggest abdomen CT with patient returns to clinical baseline. Any failure to involute, might necessitate biopsy for pathologic diagnosis. 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 This is unchanged Moderate bilateral pleural fusions - increasing from the study five days prior. The most common cause would be CHF. Please correlate with chest x-ray Small left inguinal hernia which now contains a small amount of peritoneal fluid Chest x-ray Additional comments: 06/14/2017 IMPRESSION: Large amount of free intraperitoneal air - new from CT yesterday. Findings compatible with bowel rupture - likely the large bowel Mild bibasilar atelectasis or aspiration Medical - PN: A/P - Time Spent With Patient Total time spent is greater than 50% in coordination of care (as documented) at patient's floor/unit and/or counseling patient: Greater than 35 minutes (1) Nausea & vomiting Status: Acute Current Visit: No (2) UTI due to Klebsiella species Status: Acute Current Visit: Yes (3) Colon obstruction Status: Acute Current Visit: Yes - Narrative A/P Narrative: 77-year-old female without GI illness presents with abdominal pain, nausea and vomiting. Also has urinary tract infection. Abdominal pain. Consistent with sigmoid colonic obstruction of unclear etiology. Currently in the OR for resection and treatment of perforated viscous --noted on CXR early this afternoon before going to the OR. Plan: Surgical management, now on Zosyn. Nausea with vomiting, intractable. Due to colon process above, now in OR Plan: Supportive care Urinary tract infection. Klebsiella on culture Plan: Continue Zosyn Constipation. Due to sigmoid obstruction. Plan: Continue with bowel care Asthma, mild at baseline. Plan: Continue PRN albuterol Chronic back pain. Symptoms are stable. Uses hydrocodone at home. CODE STATUS, discussed with the patient, is DNR Prophylaxis: Famotidine, enoxaparin.
[2017-06-14] MEDS ORDERED: PIPERACILLIN SODIUM/TAZOBACTAM 3.375 GM VIAL IV ONE ×2 (16:44→20:29)
[2017-06-14] MEDS ORDERED: BACITRACIN 50,000 UNIT VIAL IR ONE (17:49)
[2017-06-14] MEDS: 0.9 % SODIUM CHLORIDE 250 ML IV SCH ×3 (17:56→20:42)
[2017-06-14] MEDS ORDERED: NOREPINEPHRINE BITARTRATE 4 MG/4 ML AMPUL IV ONE (19:06)
--- NOTE | 2017-06-14 19:09 | Brief Operative Note ---
Date of procedure: 06/14/17 Pre-op diagnosis: COLONIC OBSTRUCTION WITH PERFORATION. Post-op diagnosis: other (SIGMOID COLON OBSTRUCTION WITH TRANSVERSE COLON OBSTRUCTION) Procedure: EXTENDED RIGHT COLECTOMY AND SIGMOIDECTOMY AND HARTMANNS PROCEDURE WITH ILEOSTOMY AND MUCOUS FISTULA Grafts/Implants: No (6 RIDDHI DRAINS) Anesthesia: GETA Findings: MASSIVELY DILATED COLON DOWN TO DISTAL DISTAL SIGMOID PERFORATION OF PROXIMAL TRANSVERSE COLON WITH CONTAINED LEAKAGE AND FREE AIR INTRAOPERATIVE FECAL CONTAMINATION OF PERITONEAL CAVITY ON RIGHT SIDE DURING RIGHT COLECTOMY Complications: none Surgeon: Amada Eubanks Estimated blood loss (cc): 250 Specimens Removed/Pathology: other (RIGHT OVARY ;SIGMOID COLON;RIGHT AND PROXIMAL TRANSVERSE COLON) Condition: critical Disposition: ICU
[2017-06-14] MEDS ORDERED: MIDAZOLAM 2 MG/2 ML VIAL IV PRN (19:14)
[2017-06-14] MEDS ORDERED: HEPARIN/NS 500 ML IV SCH ×2 (19:15→19:30)
[2017-06-14] MEDS ORDERED: 0.9 % SODIUM CHLORIDE 10 ML SYRINGE IV PRN (19:21)
[2017-06-14] MEDS ORDERED: PROPOFOL 100 ML IV ONE (19:24)
[2017-06-14] MEDS ORDERED: NOREPINEPHRINE BITARTRATE 8 MG in 0.9 % SODIUM CHLORIDE 242 ML IV SCH (19:30)
[2017-06-14] MEDS: PROPOFOL 1,000 MG in PREMIX 1 BAG IV SCH (19:30)
--- NOTE | 2017-06-14 19:56 | Procedure Note ---
Procedures - Arterial Line Consent obtained: written consent Time out performed: Yes Size (Gauge): 20 Technique used: guide wire technique Post-Procedure: dry sterile dressing placed, easily flushed, waveform correlation Patient tolerated procedure: well, no complications Complications: none Site: right, radial Additional comments: Intra abdominal catastrophe surgery, now post op, media services coordinator requesting art line for purpose of continued resuscitation and tight hemodynamic monitoring. Not sutured into place, tegaderm used for this purpose. - Central Line Placement Right SC Consent obtained: written consent Time out performed: Yes Patient placed on monitor/pulse ox: Yes prep: mask, sterile gown, sterile gloves, cap Central line prep: 2% Chlorhexidine scrub (X 2) Local anesthesia used: lidocaine 1% Amount of anesthesia used (mls): 5 Ultrasound used for placement: No Central line lumen inserted: quad, 20 cm Post procedure: sutured in place, good blood return, all ports aspirated, flushed, capped, sterile dressing applied Post procedure x-ray: other (awaiting cxr) Patient tolerated procedure: well, no complications Complications: none (no apparent complications) Additional comments: planned cvc placement for parenteral nutrition and post op fluid management, frequent lab draws and continued resuscitation.
[2017-06-14] MEDS: ALBUMIN HUMAN 12.5 GM/50 ML BAG IV SCH (20:19)
[2017-06-14] MEDS: metroNIDAZOLE 500 MG/100 ML BAG IV SCH (20:37)
[2017-06-14 20:39] LABS: Basophils # (Auto) 0 K/mcL (0.0-0.3); Basophils % (Auto) 0 % (0.0-2.0); Eosinophils # (Auto) 0 K/mcL (0.0-0.7); Eosinophils % (Auto) 0 % (0.0-7.0); Granulocytes % (Auto) 88.6 % (38.0-78.0); Lymphocytes # (Auto) 0.2 K/mcL (1.5-4.8); Lymphocytes % (Auto) 3.8 % (15.5-49.0); Mean Corpuscular HGB Conc 32.2 g/dL (31.0-36.0); Mean Corpuscular Hemoglobin 25.1 pg (26.0-34.0); Monocytes # (Auto) 0.3 K/mcL (0.1-0.9); Monocytes % (Auto) 7.6 % (1.0-12.0); Platelet Count 359 K/mcL (140-440); RBC 3.59 M/mcL (4.00-5.20); Red Cell Distribution Width 15.6 % (11.5-14.5)
[2017-06-14 20:53] LABS: ALT/SGPT 29 U/l (0-40); Albumin 2.1 gm/dL (3.2-5.2); Albumin/Globulin Ratio 1.4 (1.0-2.3); Alkaline Phosphatase 89 U/L (39-117); Bilirubin,Direct 0.4 mg/dL (0.0-0.3); Blood Urea Nitrogen 15 mg/dl (8-23); Gamma Glutamyl Transpeptidase 77 U/L (5-36); Magnesium 1.5 mg/dL (1.6-2.5); Uric Acid 3.6 mg/dL (2.5-8.0)
[2017-06-14] MEDS: CHLORHEXIDINE GLUCONATE 1 ML ORAL.SOL SWABMOUTH SCH (21:24)
[2017-06-14] MEDS ORDERED: 0.9 % SODIUM CHLORIDE 10 ML SYRINGE IV SCH (22:00)
[2017-06-14] MEDS ORDERED: 0.9 % SODIUM CHLORIDE 1,000 ML IV ONE (22:15)
[2017-06-14] MEDS ORDERED: ACETAMINOPHEN 1,000 MG/100 ML BOTTLE IV PRN (22:56)
[2017-06-14] MEDS: 0.9 % SODIUM CHLORIDE 1,000 ML IV PRN (23:29)
[2017-06-14] MEDS ORDERED: 0.9 % SODIUM CHLORIDE 500 ML IV SCH ×2 (23:45)
[2017-06-15] MEDS: 0.9 % SODIUM CHLORIDE 1,000 ML IV PRN ×3 (00:34→02:44)
[2017-06-15] MEDS: 0.9 % SODIUM CHLORIDE 1,000 ML IV SCH ×6 (01:52→18:13)
[2017-06-15] MEDS: PIPERACILLIN SODIUM/TAZOBACTAM 3.375 GM in DEXTROSE 5% IN WATER 50 ML IV SCH ×4 (01:53→17:55)
[2017-06-15] MEDS: metroNIDAZOLE 500 MG/100 ML BAG IV SCH ×5 (01:56→22:50)
[2017-06-15] MEDS: ALBUMIN HUMAN 12.5 GM/50 ML BAG IV SCH ×2 (02:28→08:26)
[2017-06-15] MEDS: HYDROmorphone 2 MG/ML SYRINGE IV PRN ×4 (02:57→21:04)
[2017-06-15 05:35] LABS: Mean Cell Volume 79.1 fL (80.0-100.0); Mean Corpuscular HGB Conc 32.3 g/dL (31.0-36.0); Mean Corpuscular Hemoglobin 25.5 pg (26.0-34.0); Platelet Count 389 K/mcL (140-440); RBC 3.42 M/mcL (4.00-5.20); Red Cell Distribution Width 15.4 % (11.5-14.5)
[2017-06-15] MEDS: 0.9 % SODIUM CHLORIDE 10 ML SYRINGE IV SCH ×3 (05:44→22:14)
[2017-06-15 05:57] LABS: ALT/SGPT 19 U/l (0-40); Albumin 1.9 gm/dL (3.2-5.2); Albumin/Globulin Ratio 1.5 (1.0-2.3); Alkaline Phosphatase 57 U/L (39-117); Bilirubin,Direct 0.4 mg/dL (0.0-0.3); Blood Urea Nitrogen 12 mg/dl (8-23); Gamma Glutamyl Transpeptidase 54 U/L (5-36); Magnesium 1.4 mg/dL (1.6-2.5); Uric Acid 2.2 mg/dL (2.5-8.0)
[2017-06-15 06:15] LABS: Anisocytosis 1+ (NONE SEEN); Band Neutrophils % 50 % (0-10); Hypochromasia 1+ (NONE SEEN); Lymphocytes % 3 % (15-49); Monocytes % (Manual) 4 % (1-12); Platelet Estimate NORMAL (NORMAL); RBC Morphology ABNORM (NORMAL); Segmented Neutrophils % 43 % (38-78)
[2017-06-15] MEDS ORDERED: MAGNESIUM SULFATE 32.48 MEQ in DEXTROSE 5% IN WATER 50 ML IV ONE ×3 (07:57→13:44)
[2017-06-15] MEDS ORDERED: 0.9 % SODIUM CHLORIDE 250 ML IV SCH ×2 (08:00→13:44)
[2017-06-15] MEDS ORDERED: TPN PER PHARMACY IV SCH ×2 (08:15→13:44)
[2017-06-15] MEDS ORDERED: POTASSIUM PHOSPHATE 40 MEQ in DEXTROSE 5% IN WATER 500 ML IV ONE ×3 (08:18→13:44)
--- NOTE | 2017-06-15 08:35 | XRay Report ---
CLINICAL INFORMATION: Postop shortness of breath endotracheal tube placement COMPARISON: 06/14/2017 1222 hours FINDINGS: The heart is mildly enlarged, but unchanged. Mediastinum is unremarkable. NG tube tip extends off the edge of the film - at least to the gastric body. Endotracheal tube tip is 14 mm above the ama. Pulmonary vessels are unremarkable. Moderate patchy airspace disease has progressed in both mid and lower lungs probably due to aspiration. Moderate consolidated atelectasis seen in the left lung base - retrocardiac region - new. No definite effusion. Free intraperitoneal air, seen on preoperative chest x-ray, is no longer apparent and there are surgical drains in the subdiaphragmatic region of the abdomen IMPRESSION: 1. Moderate vague bilateral mid and lower lung infiltrates - possible aspiration. Moderate consolidated atelectasis in left lower lobe 2. Endotracheal tip 14 mm above the ama. Suggest endotracheal withdrawal 2 cm Interpreted and Authenticated by: Valentin Torres 06/15/17
--- NOTE | 2017-06-15 08:42 | XRay Report ---
CLINICAL INFORMATION: Follow up infiltrate postop COMPARISON: 06/14/2017 1945 hours. FINDINGS: Borderline cardiomegaly is unchanged. Mediastinum is unremarkable. Endotracheal tip is 2 cm above the ama. A new right subclavian central line is in place - the tip overlies the SVC last right atrial junction in satisfactory position. No pneumothorax or other complication from line placement. The NG tube remains in stable satisfactory position. Pulmonary vasculature is normal for technique. Moderate patchy infiltrates in both mid and lower lungs with consolidated atelectasis in most of the left lower lobe show slight worsening. Small bilateral pleural effusions noted IMPRESSION: Moderate patchy bilateral mid and lower lung field infiltrates with left lower lobe atelectasis showing slight progression since yesterday's postoperative film. Consider aspiration and ARDS Endotracheal tip 2 cm above the ama New right subclavian central line in satisfactory position. No, dictation line placement Interpreted and Authenticated by: Valentin Torres 06/15/17
--- NOTE | 2017-06-15 08:54 | XRay Report ---
CLINICAL INFORMATION: Central line placement COMPARISON: 06/14/2017 1831 hours FINDINGS: Right-sided central line tip overlies the SVC/right atrial junction in satisfactory position. No pneumothorax or other complication from line placement. Endotracheal tip remains 2 cm above the ama. The NG tube extends off the edge of the film - at least the gastric antrum. Heart is borderline enlarged, but stable. Mediastinum and pulmonary vessels are normal. Moderate patchy infiltrates in both mid and lower lungs are unchanged - suspect aspiration. Dense consolidation of the left lower lobe is unchanged IMPRESSION: 1. Right subclavian line in satisfactory position. No pneumothorax or other complication from line placement 2. Moderate patchy infiltrates both mid and lower lungs. Suspect aspiration. Dense consolidated atelectasis of the left lower lobe - both stable Interpreted and Authenticated by: Valentin Torres 06/15/17
[2017-06-15] MEDS ORDERED: NOREPINEPHRINE BITARTRATE 16 MG in 0.9 % SODIUM CHLORIDE 234 ML IV SCH (09:00)
[2017-06-15] MEDS: 0.9 % SODIUM CHLORIDE 250 ML IV SCH ×4 (09:13→14:12)
[2017-06-15] MEDS: PROPOFOL 1,000 MG in PREMIX 1 BAG IV SCH (10:31)
[2017-06-15] MEDS ORDERED: POLYVINYL ALCOHOL OPHTH DROPS 15ML BOTTLE OD PRN (10:50)
[2017-06-15] MEDS: CHLORHEXIDINE GLUCONATE 1 ML ORAL.SOL SWABMOUTH SCH ×2 (10:52→21:06)
--- NOTE | 2017-06-15 13:01 | Internal Med Progress Note ---
Medical - PN: Subj Patient information: Note initiated : 06/15/17 at 12:56 pm Service Date, if different from initiated Date: [] Patient: Caroline Bellamy a 77 y/o F admitted on 06/12/17 for N/V, UTI, Constipation/Colon Obstruction, UTI. Chief Complaint: f/u colonic obstruction, perforation Interval history: June 12 Ms. Adiel Cardoso is a 77 year old F who presents to the ED with ongoing complaints of abdominal pain. Patient awoke last Thursday with abdominal pain. She was also nauseated. She was seen in the emergency department due to ongoing symptoms on Thursday, 06/08. CT scan at that time showed some colonic thickening and wall edema without significant inflammatory changes. There was also diverticulosis. She had evidence of urinary tract infection and was started on Septra. Patient remained nauseated and was unable to take the Septra. She continued to have significant abdominal pain, up to 06/09. On the day following her ED visit , she was nauseated and was unable to keep anything down. She presented back to the emergency department, had Bactrim stopped and was changed over to ciprofloxacin. Neither the patient nor her family were aware that a new prescription of been generated and it was never picked up. On Thursday and she continued to have vomiting which was without blood. She continued to have significant abdominal pain up to "08/09". She presents back to the emergency department today because of ongoing abdominal pain, nausea and vomiting. With the onset of the pain a week ago, the pain was severe and was in the left lower quadrant, changing over to the right lower quadrant and becoming generalized as last week has progressed. She describes the quality of the pain is constant and aching with intermittent bouts of stabbing pain. Associated with nausea, vomiting without hematemesis. She has hydrocodone prescription for chronic back pain, that has helped her pain somewhat, though she has had some difficulty keeping medications down. She tried an oral Zofran, was able to keep one done yesterday, but not today. June 13 She is still complaining of significant abdominal pain, more so on the right side from the right upper and right lower quadrant. Tolerating clears, nausea has improved, no ecchymosis. She did have one small hard bowel movement, then to softer ones. She did receive bisacodyl rectally, also oral milk of magnesia and senna last evening. No fever, no chills. No significant dyspnea, has used 1 as needed nebulizer therapy. CT of the abdomen and pelvis was obtained due to ongoing pain. Spoke with radiology, films reviewed, she has dilated colon, ascending, transverse, descending with a transition point in the sigmoid where it decompresses. No pericolonic inflammatory changes, no mural thickening. Patient currently undergoing delayed images to see if there is passage of contrast. June 14 Still complaining of abdominal pain. Had some desaturation overnight, on oxygen. Received dose of furosemide earlier today. Still requiring regular Dilaudid today, though when I see her this morning the interval between when necessary doses has increased somewhat. Final results of CTAP yesterday without passage of contrast. I discussed the case with Dr. Eubanks last evening, he is seeing the patient today , plans to take to the operating room. Her white count was increased to 22,000 today. Ceftriaxone changed to Zosyn this morning. June 15 Patient currently in the intensive care unit following surgery yesterday. Had inflammatory mass causing sigmoid obstruction. Subsequently had rupture of right colon intraoperatively, necessitating colectomy and washout. 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 Wound is being packed open. Overnight patient received fluid resuscitation of 6 L NS, did achieve adequate CVP, still required norepinephrine. Today receiving packed red blood cells, still on norepinephrine, though that has been titrated down a bit. Remains sedated with propofol on ventilator. Plan to go back to the OR Thursday for washout and possible closure. - Constitutional Vitals: Vital Signs Temp Pulse Resp BP Pulse Ox 99.7 F H 104 H 16 119/69 96 06/15/17 12:00 06/15/17 12:00 06/15/17 10:33 06/15/17 12:00 06/15/17 12:00 Period Temp Pulse Resp BP Sys/[place] Pulse Ox Last 24 Hr 97.8 F-99.8 F 80-115 13-21 76-127/43-76 94-100 Intake and Output 06/14/17 06/15/17 06/15/17 21:59 05:59 13:59 Intake Total 1000 / 1000 8813 / 8813 1854 / 1854 Output Total 535 / 535 494 / 494 618 / 618 Balance 465 / 465 8319 / 8319 1236 / 1236 Weight 159 lb 4.8 oz Intake & Output: Intake & Output 06/14/17 06/15/17 06/15/17 21:59 05:59 13:59 Intake Total 1000 / 1000 8813 / 8813 1854 / 1854 Output Total 535 / 535 494 / 494 618 / 618 Balance 465 / 465 8319 / 8319 1236 / 1236 Weight 159 lb 4.8 oz Intake: IV 8813 / 8813 1529 / 1529 Sodium Chloride 0.9% 1,000 ml @ 5849 / 5849 1000 / 1000 200 mls/hr IV .Q5H [facility] Rx#: [id number] Sodium Chloride 0.9% 250 ml @ 159 / 159 20 mls/hr IV .[id number] [facility] Rx#: [id number] Magnesium Sulfate 32.48 Meq In 58 / 58 Dextrose 5% in Water 50 ml @ 58 mls/hr IV ONCE ONE Rx#: [id number] Levophed 16 mg In Sodium 46 / 46 Chloride 0.9% 234 ml @ 10 MCG/ MIN 9.37 mls/hr IV Q24H [facility] Rx# :[id number] Zosyn 3.375 gm In Dextrose 5% 50 / 50 50 / 50 in Water 50 ml @ 100 mls/hr IV Q6H [facility] Rx#:[id number] Diprivan 1,000 mg In Premix 1 14 / 66 / 66 Bag @ 5 MCG/KG/MIN 2.16 mls/hr IV .Q24H [facility] Rx#:[id number] Blood Product 325 / 325 IV - Manual Only 1000 / 1000 Output: Drainage 410 / 410 290 / 290 415 / 415 RIDDHI 'A' 50 / 50 70 / 70 110 / 110 RIDDHI 'B' 60 / 60 30 / 30 25 / 25 RIDDHI 'C' 40 / 40 25 / 25 100 / 100 RIDDHI 'D' 80 / 80 60 / 60 30 / 30 RIDDHI 'E' 80 / 80 35 / 35 25 / 25 RIDDHI 'F' 100 / 100 70 / 70 125 / 125 Urine Catheter Amount 125 / 125 204 / 204 203 / 203 - Additional findings Additional findings: General: Sedated Chest: Clear bilaterally in anterior/lateral/basal lung alves. Not overbreathing ventilator Cardiovascular: Regular rate and rhythm Abdomen: Wound packed and dressed. Ostomies with perfused bowel. Extremities: No cyanosis. Ecchymoses on right arm secondary to blood pressure cuff. Lower extremities and SCDs Neuro: Sedated Medical - PN: Obj Da - Labs CBC & Chem 7: 06/15/17 03:54 06/15/17 03:54 Labs: Laboratory Results - last 24 hr 06/14/17 06/14/17 06/14/17 12:37 12:37 12:37 WBC RBC Hgb Hct MCV MCH MCHC RDW Plt Count MPV Gran % Lymph % (Auto) [place] % (Auto) Eos % (Auto) Baso % (Auto) Gran # Lymph # (Auto) [place] # (Auto) Eos # (Auto) Baso # (Auto) Total Counted Seg Neutrophils % Band Neutrophils % Lymphocytes % Monocytes % (Manual) Platelet Estimate RBC Morphology Hypochromasia Anisocytosis Microcytosis RBC Fragments PT 17.4 H INR 1.4 H APTT 46 H Sodium Potassium Chloride Carbon Dioxide Anion Gap BUN Creatinine GFR Calculation BUN/Creatinine Ratio Glucose Uric Acid Calcium Phosphorus Magnesium Total Bilirubin Direct Bilirubin GGT AST ALT Alkaline Phosphatase Lactate Dehydrogenase NT-Pro-B Natriuret Pep 540.5 H Total Protein Albumin Globulin Albumin/Globulin Ratio Triglycerides Carcinoembryonic Ag 2.4 06/14/17 06/14/17 06/14/17 20:04 20:04 20:04 WBC 4.3 L RBC 3.59 L Hgb 9.0 L Hct 28.0 L MCV 78.0 L MCH 25.1 L MCHC 32.2 RDW 15.6 H Plt Count 359 MPV 8.0 Gran % 88.6 H Lymph % (Auto) 3.8 L [place] % (Auto) 7.6 Eos % (Auto) 0 Baso % (Auto) 0 Gran # 3.8 Lymph # (Auto) 0.2 L [place] # (Auto) 0.3 Eos # (Auto) 0 Baso # (Auto) 0 Total Counted Seg Neutrophils % Band Neutrophils % Lymphocytes % Monocytes % (Manual) Platelet Estimate RBC Morphology Hypochromasia Anisocytosis Microcytosis RBC Fragments PT INR APTT Sodium Cancelled 132 L Potassium Cancelled 3.9 Chloride Cancelled 99 Carbon Dioxide Cancelled 23 Anion Gap Cancelled 10.0 BUN Cancelled 15 Creatinine Cancelled 0.6 GFR Calculation Cancelled 89 BUN/Creatinine Ratio Cancelled Glucose Cancelled 176 H Uric Acid 3.6 Calcium Cancelled 7.3 L Phosphorus 2.8 Magnesium 1.5 L Total Bilirubin 0.7 Direct Bilirubin 0.4 H GGT 77 H AST 27 ALT 29 Alkaline Phosphatase 89 Lactate Dehydrogenase 103 NT-Pro-B Natriuret Pep Total Protein 3.6 L Albumin 2.1 L Globulin 1.5 L Albumin/Globulin Ratio 1.4 Triglycerides 38 Carcinoembryonic Ag 06/15/17 06/15/17 06/15/17 03:54 03:54 03:54 WBC 8.7 RBC 3.42 L Hgb 8.7 L Hct 27.1 L MCV 79.1 L MCH 25.5 L MCHC 32.3 RDW 15.4 H Plt Count 389 MPV 8.2 Gran % Lymph % (Auto) [place] % (Auto) Eos % (Auto) Baso % (Auto) Gran # Lymph # (Auto) [place] # (Auto) Eos # (Auto) Baso # (Auto) Total Counted 100 Seg Neutrophils % 43 Band Neutrophils % 50 H Lymphocytes % 3 L Monocytes % (Manual) 4 Platelet Estimate Normal RBC Morphology Abnorm A Hypochromasia 1+ A Anisocytosis 1+ A Microcytosis 1+ A RBC Fragments Occ A PT INR APTT Sodium 138 Potassium 3.6 Chloride 106 Carbon Dioxide 18 L Anion Gap 14.0 BUN 12 Creatinine 0.4 L GFR Calculation 102 BUN/Creatinine Ratio Glucose 119 H Uric Acid 2.2 L Calcium 6.5 L Phosphorus 1.8 L Magnesium 1.4 L Total Bilirubin 0.7 Direct Bilirubin 0.4 H GGT 54 H AST 17 ALT 19 Alkaline Phosphatase 57 Lactate Dehydrogenase 89 L NT-Pro-B Natriuret Pep 1444.0 H Total Protein 3.2 L Albumin 1.9 L Globulin 1.3 L Albumin/Globulin Ratio 1.5 Triglycerides 32 Carcinoembryonic Ag Meds: Medications Acetaminophen (Tylenol) 650 mg PO Q6HP PRN PRN Reason: PAIN/FEVER > 101 Last Admin: 06/13/17 23:07 Dose: 650 mg Hydrocodone Bitart/Acetaminophen ([place] 5/325mg) 1 tab PO Q4HP PRN PRN Reason: Pain Last Admin: 06/14/17 11:26 Dose: 1 tab Albuterol Sulfate (Ventolin) 2.5 mg NEB Q2HP PRN PRN Reason: Shortness Of Breath Last Admin: 06/14/17 19:17 Dose: 2.5 mg Artificial Tears (Artificial Tears Ophth Drops) 1 gtt OD QIDP PRN PRN Reason: Dry Eye(s) Chlorhexidine Gluconate (Peridex) 15 ml SWABMOUTH BID [facility] Last Admin: 06/15/17 10:52 Dose: 15 ml Diagnostic Test (Pha) (Accu-Chek) 1 each FS Q6 KRISS Last Admin: 06/15/17 11:52 Dose: 1 each Hydromorphone HCl (Dilaudid) 0.5 mg IV Q1HP PRN PRN Reason: Pain Last Admin: 06/15/17 11:57 Dose: 0.5 mg Piperacillin Sod/Tazobactam (Sod 3.375 gm/ Dextrose) 50 mls @ 100 mls/hr IV Q6H [facility] Last Admin: 06/15/17 11:25 Dose: 100 mls/hr Sodium Chloride (Sodium Chloride 0.9%) 250 mls @ 20 mls/hr IV .[id number] [facility] Last Admin: 06/15/17 12:35 Dose: 20 mls/hr Propofol 1,000 mg/ Premix 100 mls @ 2.16 mls/hr IV .Q24H KRISS; 5 MCG/KG/MIN PRN Reason: Protocol Last Admin: 06/15/17 10:31 Dose: 20 mcg/kg/min, 8.66 mls/hr Metronidazole (Flagyl) 500 mg in 100 mls @ 100 mls/hr IV Q6H [facility] Last Admin: 06/15/17 11:24 Dose: 100 mls/hr Sodium Chloride (Sodium Chloride 0.9%) 1,000 mls @ 200 mls/hr IV .Q5H [facility] Last Admin: 06/15/17 10:46 Dose: Not Given Albumin Human (Buminate) 12.5 gm in 50 mls @ 100 mls/hr IV Q6H [facility] Stop: 06/15/17 14:29 Last Infusion: 06/15/17 09:17 Dose: Infused Acetaminophen (Ofirmev) 1,000 mg in 100 mls @ 200 mls/hr IV Q6HP PRN PRN Reason: PAIN/FEVER > 101 Sodium Chloride (Sodium Chloride 0.9%) 500 mls @ 20 mls/hr IV .Q24H [facility] Last Admin: 06/14/17 23:41 Dose: 20 mls/hr Sodium Chloride (Sodium Chloride 0.9%) 500 mls @ 20 mls/hr IV .Q24H KRISS Last Admin: 06/14/17 23:41 Dose: 20 mls/hr Sodium Chloride (Sodium Chloride 0.9%) 250 mls @ 20 mls/hr IV .[id number] KRISS Stop: 06/15/17 20:29 Last Admin: 06/15/17 09:58 Dose: 20 mls/hr Norepinephrine Bitartrate 16 (mg/ Sodium Chloride) 250 mls @ 9.37 mls/hr IV Q24H KRISS; 10 MCG/MIN PRN Reason: Protocol Last Titration: 06/15/17 12:48 Dose: 10 mcg/min, 9.37 mls/hr Potassium Phosphate 40 meq/ (Dextrose) 509.0909 mls @ 127.273 mls/hr IV ONCE ONE Stop: 06/15/17 12:59 Last Admin: 06/15/17 10:29 Dose: 127.273 mls/hr Midazolam HCl (Versed) 1 mg IV Q30MIN PRN PRN Reason: Sedation Ondansetron HCl (Zofran) 4 mg IV Q6HP PRN PRN Reason: Nausea And Vomiting Last Admin: 06/14/17 00:15 Dose: 4 mg Ondansetron HCl (Zofran Odt) 4 mg SL Q6HP PRN PRN Reason: Nausea And Vomiting Pantoprazole Sodium (Protonix) 40 mg IV BIDAC KRISS Sodium Chloride (Saline Flush) 10 ml IV Q8 KRISS Last Admin: 06/15/17 05:44 Dose: Not Given Sodium Chloride (Saline Flush) 10 ml IV UD PRN PRN Reason: medication - Impressions CXR 06/15 IMPRESSION: Moderate patchy bilateral mid and lower lung field infiltrates with left lower lobe atelectasis showing slight progression since yesterday's postoperative film. Consider aspiration and ARDS Endotracheal tip 2 cm above the ama New right subclavian central line in satisfactory position. No, dictation line placement CXR 06/14, reviewed IMPRESSION: 1. Right subclavian line in satisfactory position. No pneumothorax or other complication from line placement 2. Moderate patchy infiltrates both mid and lower lungs. Suspect aspiration. Dense consolidated atelectasis of the left lower lobe - both stable Medical - PN: A/P - Time Spent With Patient Total time spent is greater than 50% in coordination of care (as documented) at patient's floor/unit and/or counseling patient: (1) Nausea & vomiting Status: Acute Current Visit: No (2) UTI due to Klebsiella species Status: Acute Current Visit: Yes (3) Colon obstruction Problem details: Mass in sigmoid, resected 06/14/2017 Status: Acute Current Visit: Yes (4) Perforation bowel Status: Acute Current Visit: Yes - Narrative A/P Narrative: 77-year-old female without GI illness presents with abdominal pain, nausea and vomiting. Also has urinary tract infection. Evolution of distal colonic obstruction, subsequently went to the operating room on 06/14, resection of sigmoid mass, a contained perforation of transverse colon and spontaneous rupture of right colon intraoperatively. Postop day #1, status post exploratory laparotomy, hemicolectomy with ileostomy , Clark's procedure with mucous fistula. Pulmonary. Remain sedated and ventilated. Plan to keep intubated until she goes back to the OR. Follow blood gases when necessary. Follow daily chest radiograph and infiltrates that have been noted. Currently on Zosyn and metronidazole. Ventilatory pressures are normal, no indication of increased pulmonary resistance/stiffness. Does have mild asthma, continuing with aerosols while on the vent. Cardiovascular. Received volume resuscitation for postoperative state combined with SIRS and possible sepsis from chemical and bacterial peritonitis. After CVP goal achieved, remains on norepinephrine. Plan to transfuse packed red cells today, continue to wean norepinephrine as able, monitor intravascular volume status. Will need diuresis as SIRS and post-op fluid shifts stabilize. Renal. Maintaining adequate urine output. Renal function normal. Follow. Infectious disease. On Zosyn and metronidazole following surgery for perforated viscus. Continue. Klebsiella urinary tract infection, being addressed by Zosyn. UTI was present on admission. F/E/N. Repleting magnesium, phosphorus and potassium today. Remains nothing by mouth, starting TPN. CODE STATUS, discussed with the patient, is DNR Prophylaxis: Protonix, SCD's 35 minutes critical care time Procedures - Arterial Line Size (Gauge): 20
[2017-06-15] MEDS ORDERED: ACETAMINOPHEN 1,000 MG/100 ML BOTTLE IV PRN (13:44)
[2017-06-15] MEDS ORDERED: HYDROcodone/APAP 5/325MG TABLET PO PRN (13:44)
[2017-06-15] MEDS ORDERED: ONDANSETRON 4 MG/2 ML VIAL IV PRN (13:44)
[2017-06-15] MEDS ORDERED: 0.9 % SODIUM CHLORIDE 10 ML SYRINGE IV PRN (13:44)
[2017-06-15] MEDS ORDERED: PROPOFOL 1,000 MG in PREMIX 1 BAG IV SCH (13:44)
[2017-06-15] MEDS ORDERED: ACETAMINOPHEN 325 MG TABLET PO PRN (13:44)
[2017-06-15] MEDS ORDERED: MIDAZOLAM 2 MG/2 ML VIAL IV PRN (13:44)
[2017-06-15] MEDS ORDERED: 0.9 % SODIUM CHLORIDE 500 ML IV SCH ×2 (13:44)
[2017-06-15] MEDS ORDERED: ONDANSETRON ODT 4 MG TABLET SL PRN (13:44)
[2017-06-15] MEDS ORDERED: 0.9 % SODIUM CHLORIDE 1,000 ML IV SCH (13:44)
[2017-06-15] MEDS ORDERED: ALBUMIN HUMAN 12.5 GM/50 ML BAG IV SCH (14:00)
[2017-06-15] MEDS ORDERED: FUROSEMIDE 40 MG/4 ML VIAL IV ONE (14:03)
[2017-06-15] MEDS ORDERED: DEXTROSE 50% 50 ML VIAL IV PRN (15:12)
[2017-06-15] MEDS ORDERED: FAT EMULSION 20% 250 ML in PREMIX 1 BAG IV SCH (16:00)
[2017-06-15] MEDS ORDERED: CALCIUM GLUCONATE 5 MEQ, MAGNESIUM SULFATE 8.12 MEQ, SODIUM CHLORIDE 20 MEQ, POTASSIUM ... IV SCH (16:00)
[2017-06-15 16:56] LABS: Prealbumin 3.8 mg/dl (20-40)
[2017-06-15] MEDS ORDERED: PANTOPRAZOLE 40 MG VIAL IV SCH (17:00)
[2017-06-15] MEDS: PANTOPRAZOLE 40 MG VIAL IV SCH (17:22)
--- NOTE | 2017-06-15 17:23 | General Surgery Progress Note ---
Subjective Patient reports: afebrile Narrative: Note initiated : 06/15/17 at 5:22 pm Service Date, if different from initiated Date: [] Patient: Caroline Bellamy 77 y/o F admitted on 06/12/17 for N/V, UTI, Constipation/Colon Obstruction, UTI. Chief Complaint: [Patient is stable status post extended right colectomy and sigmoidectomy with Brendon's with ileostomy and mucous fistula. She was initially volume depleted and hypotensive but her volume has been replaced and her urine output is increased. Her Levophed dosages have been rapidly decreased and her blood pressure remains in the 130s systolic range her pulse rate is in the 90s. Patient has maintained good oxygen saturations but she is developing a right sided midlung infiltrate suggestive of possible aspiration. Her white blood count is not increased.] Objective Temp Pulse Resp BP Pulse Ox 100.0 F H 102 H 21 109/61 97 06/15/17 17:00 06/15/17 17:00 06/15/17 15:15 06/15/17 17:00 06/15/17 17:00 - Additional Data Intake & Output - Last 24 hours: Intake & Output 06/13/17 06/14/17 06/15/17 06/16/17 05:59 05:59 05:59 05:59 Intake Total 2430 / 2430 2068 / 2068 00785 / 88922 2883.0909 / 2883.0909 Output Total 250 / 250 220 / 220 1379 / 1379 2573 / 2573 Balance 2180 / 2180 1848 / 1848 9484 / 9484 310.0909 / 310.0909 Weight 163 lb 14.4 oz 170 lb 159 lb 4.8 oz 159 lb 4.8 oz - General physical appearance no distress, other (Intubated and ventilated and sedated) - Respiratory other (But with coarse tubular breath sounds on the right good breath sounds on both sides) - Cardiovascular Cardiovascular exam: Present: +S1, +S2, tachycardia. Absent: JVD, systolic murmur - Abdomen bowel sounds (Hypoactive bowel sounds; both stomas look good; incision was not opened and inspected) - Integumentary no rash, no growths, no abnormal pigmentation - Neurologic other (Ventilated and sedated) - Musculoskeletal other (Bedridden) - Psychiatric other (Sedated) - Labs 06/15/17 03:54 06/15/17 03:54 Diabetes panel 06/14/17 06/14/17 06/15/17 Range/Units 20:04 20:04 03:54 Sodium Cancelled 132 L 138 Potassium Cancelled 3.9 3.6 Chloride Cancelled 99 106 Carbon Dioxide Cancelled 23 18 L BUN Cancelled 15 12 Creatinine Cancelled 0.6 0.4 L Glucose Cancelled 176 H 119 H Calcium Cancelled 7.3 L 6.5 L AST 27 17 (0-37) U/l ALT 29 19 (0-40) U/l Alkaline Phosphatase 89 57 (39-117) U/L Total Protein 3.6 L 3.2 L (5.9-8.4) gm/dL Albumin 2.1 L 1.9 L (3.2-5.2) gm/dL Triglycerides 38 32 (<150) mg/dl Calcium panel 06/14/17 06/14/17 06/15/17 Range/Units 20:04 20:04 03:54 Calcium Cancelled 7.3 L 6.5 L Phosphorus 2.8 1.8 L (2.7-4.5) mg/dL Albumin 2.1 L 1.9 L (3.2-5.2) gm/dL Pituitary panel 06/14/17 06/14/17 06/15/17 Range/Units 20:04 20:04 03:54 Sodium Cancelled 132 L 138 Potassium Cancelled 3.9 3.6 Chloride Cancelled 99 106 Carbon Dioxide Cancelled 23 18 L BUN Cancelled 15 12 Creatinine Cancelled 0.6 0.4 L Glucose Cancelled 176 H 119 H Calcium Cancelled 7.3 L 6.5 L Adrenal panel 06/14/17 06/14/17 06/15/17 Range/Units 20:04 20:04 03:54 Sodium Cancelled 132 L 138 Potassium Cancelled 3.9 3.6 Chloride Cancelled 99 106 Carbon Dioxide Cancelled 23 18 L BUN Cancelled 15 12 Creatinine Cancelled 0.6 0.4 L Glucose Cancelled 176 H 119 H Calcium Cancelled 7.3 L 6.5 L Total Bilirubin 0.7 0.7 (0.0-1.0) mg/dL AST 27 17 (0-37) U/l ALT 29 19 (0-40) U/l Alkaline Phosphatase 89 57 (39-117) U/L Total Protein 3.6 L 3.2 L (5.9-8.4) gm/dL Albumin 2.1 L 1.9 L (3.2-5.2) gm/dL Assessment and Plan (1) Colon obstruction Problem details: Mass in sigmoid, resected 06/14/2017 Status: Acute Current Visit: Yes (2) Anemia Status: Acute Assessment and plan: Patient transfused 2 units of packed red cells She is receiving every 6 hours albumin infusion 2 days Current Visit: Yes (3) UTI due to Klebsiella species Status: Acute Current Visit: Yes - Time Spent With Patient Total time spent is greater than 50% in coordination of care (as documented) at patient's floor/unit and/or counseling patient:
[2017-06-15] MEDS: POLYVINYL ALCOHOL OPHTH DROPS 15ML BOTTLE OD PRN (17:55)
[2017-06-15] MEDS: INSULIN LISPRO 1 UNIT/0.01 ML UNIT SQ SCH (18:06)
[2017-06-15 20:22] LABS: Prealbumin 4.3 mg/dl (20-40)
[2017-06-15] MEDS: PROPOFOL 1,000 MG in PREMIX 1 BAG IV PRN (21:06)
[2017-06-15] MEDS: ALBUTEROL SULFATE 2.5 MG/3 ML NEBULIZER NEB PRN (23:14)
[2017-06-16] MEDS: HYDROmorphone 2 MG/ML SYRINGE IV PRN ×5 (00:45→23:40)
[2017-06-16] MEDS: PIPERACILLIN SODIUM/TAZOBACTAM 3.375 GM in DEXTROSE 5% IN WATER 50 ML IV SCH ×4 (01:01→18:00)
[2017-06-16] MEDS: INSULIN LISPRO 1 UNIT/0.01 ML UNIT SQ SCH ×3 (01:09→12:12)
[2017-06-16] MEDS: metroNIDAZOLE 500 MG/100 ML BAG IV SCH ×4 (05:08→22:59)
[2017-06-16] MEDS: 0.9 % SODIUM CHLORIDE 250 ML IV SCH ×2 (05:20→15:17)
[2017-06-16] MEDS: 0.9 % SODIUM CHLORIDE 1,000 ML IV SCH ×4 (05:20→23:59)
[2017-06-16] MEDS: 0.9 % SODIUM CHLORIDE 10 ML SYRINGE IV SCH ×3 (05:30→21:17)
[2017-06-16 05:34] LABS: Mean Cell Volume 81.5 fL (80.0-100.0); Mean Corpuscular HGB Conc 32.4 g/dL (31.0-36.0); Mean Corpuscular Hemoglobin 26.4 pg (26.0-34.0); Platelet Count 374 K/mcL (140-440); RBC 3.83 M/mcL (4.00-5.20); Red Cell Distribution Width 16.6 % (11.5-14.5)
[2017-06-16 06:19] LABS: Anisocytosis 1+ (NONE SEEN); Band Neutrophils % 13 % (0-10); Lymphocytes % 4 % (15-49); Monocytes % (Manual) 12 % (1-12); Platelet Estimate NORMAL (NORMAL); RBC Morphology ABNORM (NORMAL); Segmented Neutrophils % 71 % (38-78)
[2017-06-16] MEDS: POLYVINYL ALCOHOL OPHTH DROPS 15ML BOTTLE OD PRN ×5 (06:19→21:18)
[2017-06-16 06:23] LABS: ALT/SGPT 17 U/l (0-40); Albumin 2.1 gm/dL (3.2-5.2); Albumin/Globulin Ratio 1.1 (1.0-2.3); Alkaline Phosphatase 56 U/L (39-117); Bilirubin,Direct < 0.2 mg/dL (0.0-0.3); Blood Urea Nitrogen 9 mg/dl (8-23); Gamma Glutamyl Transpeptidase 43 U/L (5-36); Magnesium 1.9 mg/dL (1.6-2.5); Uric Acid 1.7 mg/dL (2.5-8.0)
[2017-06-16] MEDS: PANTOPRAZOLE 40 MG VIAL IV SCH ×2 (07:30→17:09)
[2017-06-16] MEDS: CHLORHEXIDINE GLUCONATE 1 ML ORAL.SOL SWABMOUTH SCH ×2 (08:54→21:18)
[2017-06-16] MEDS: NOREPINEPHRINE BITARTRATE 16 MG in 0.9 % SODIUM CHLORIDE 234 ML IV SCH (08:55)
--- NOTE | 2017-06-16 09:43 | XRay Report ---
CLINICAL INFORMATION: Hypoxia on mechanical ventilation COMPARISON: 06/15/2017 FINDINGS: Endotracheal tip remains 16 mm above the ama. NG tube extends off the edge of the film at least the gastric body. Right subclavian central line remains in stable satisfactory position Mild cardiomegaly is unchanged. Mediastinum and pulmonary vessels are normal. Patchy infiltrates both mid and lower lungs have improved from yesterday - particularly in the right base. Left lower lobe atelectasis is also better aerated. Small bilateral pleural effusions are new IMPRESSION: Moderate improvement in bilateral patchy mid and lower lung infiltrates and also left basilar atelectasis Endotracheal tip remains low - 16 mm above the ama. Consider withdrawing tube 2 cm Small bilateral pleural effusions. Interpreted and Authenticated by: Valentin Torres 06/16/17
[2017-06-16] MEDS: PROPOFOL 1,000 MG in PREMIX 1 BAG IV PRN ×2 (10:09→17:58)
[2017-06-16] MEDS ORDERED: FUROSEMIDE 20 MG/2 ML VIAL IV ONE (11:51)
--- NOTE | 2017-06-16 11:52 | Internal Med Progress Note ---
Medical - PN: Subj Patient information: Note initiated : 06/16/17 at 11:49 am Service Date, if different from initiated Date: [] Patient: Caroline Bellamy a 77 y/o F admitted on 06/12/17 for N/V, UTI, Constipation/Colon Obstruction, UTI. Chief Complaint: f/u colectomy Interval history: June 12 Ms. Adiel Cardoso is a 77 year old F who presents to the ED with ongoing complaints of abdominal pain. Patient awoke last Thursday with abdominal pain. She was also nauseated. She was seen in the emergency department due to ongoing symptoms on Thursday, 06/08. CT scan at that time showed some colonic thickening and wall edema without significant inflammatory changes. There was also diverticulosis. She had evidence of urinary tract infection and was started on Septra. Patient remained nauseated and was unable to take the Septra. She continued to have significant abdominal pain, up to 06/09. On the day following her ED visit , she was nauseated and was unable to keep anything down. She presented back to the emergency department, had Bactrim stopped and was changed over to ciprofloxacin. Neither the patient nor her family were aware that a new prescription of been generated and it was never picked up. On Thursday and she continued to have vomiting which was without blood. She continued to have significant abdominal pain up to "08/09". She presents back to the emergency department today because of ongoing abdominal pain, nausea and vomiting. With the onset of the pain a week ago, the pain was severe and was in the left lower quadrant, changing over to the right lower quadrant and becoming generalized as last week has progressed. She describes the quality of the pain is constant and aching with intermittent bouts of stabbing pain. Associated with nausea, vomiting without hematemesis. She has hydrocodone prescription for chronic back pain, that has helped her pain somewhat, though she has had some difficulty keeping medications down. She tried an oral Zofran, was able to keep one done yesterday, but not today. June 13 She is still complaining of significant abdominal pain, more so on the right side from the right upper and right lower quadrant. Tolerating clears, nausea has improved, no ecchymosis. She did have one small hard bowel movement, then to softer ones. She did receive bisacodyl rectally, also oral milk of magnesia and senna last evening. No fever, no chills. No significant dyspnea, has used 1 as needed nebulizer therapy. CT of the abdomen and pelvis was obtained due to ongoing pain. Spoke with radiology, films reviewed, she has dilated colon, ascending, transverse, descending with a transition point in the sigmoid where it decompresses. No pericolonic inflammatory changes, no mural thickening. Patient currently undergoing delayed images to see if there is passage of contrast. June 14 Still complaining of abdominal pain. Had some desaturation overnight, on oxygen. Received dose of furosemide earlier today. Still requiring regular Dilaudid today, though when I see her this morning the interval between when necessary doses has increased somewhat. Final results of CTAP yesterday without passage of contrast. I discussed the case with Dr. Eubanks last evening, he is seeing the patient today , plans to take to the operating room. Her white count was increased to 22,000 today. Ceftriaxone changed to Zosyn this morning. June 15 Patient currently in the intensive care unit following surgery yesterday. Had inflammatory mass causing sigmoid obstruction. Subsequently had rupture of right colon intraoperatively, necessitating colectomy and washout. 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 Wound is being packed open. Overnight patient received fluid resuscitation of 6 L NS, did achieve adequate CVP, still required norepinephrine. Today receiving packed red blood cells, still on norepinephrine, though that has been titrated down a bit. Remains sedated with propofol on ventilator. Plan to go back to the OR Thursday for washout and possible closure. June 16 Patient remained stable, ventilated and sedated. Remains on some Levophed for blood pressure support. Diuresed well with 40 mg of furosemide yesterday. Still with significant thigh and arm edema. Right pleural effusion on radiograph today, though infiltrates/atelectasis improves. Arterial line started to dampen and not function overnight, was removed. - Constitutional Vitals: Vital Signs Temp Pulse Resp BP Pulse Ox 99.8 F H 92 H 17 105/65 97 06/16/17 11:00 06/16/17 11:19 06/16/17 10:46 06/16/17 11:00 06/16/17 11:19 Period Temp Pulse Resp BP Sys/[place] Pulse Ox Last 24 Hr 99 F-100.4 F 86-109 16-21 97-137/49-78 94-98 Intake and Output 06/15/17 06/16/17 06/16/17 21:59 05:59 13:59 Intake Total 1881.0909 / 1881.0909 1900 / 1900 254 / 254 Output Total 3240 / 3240 925 / 925 301 / 301 Balance -1358.9091 / -1358.9091 975 / 975 -47 / -47 Weight 178 lb 8 oz Intake & Output: Intake & Output 06/15/17 06/16/17 06/16/17 21:59 05:59 13:59 Intake Total 1881.0909 / 1881.0909 1900 / 1900 254 / 254 Output Total 3240 / 3240 925 / 925 301 / 301 Balance -1358.9091 / -1358.9091 975 / 975 -47 / -47 Weight 178 lb 8 oz Intake: IV 1881.0909 / 1881.0909 1900 / 1900 254 / 254 Sodium Chloride 0.9% 1,000 ml @ 1000 / 1000 100 mls/hr IV .Q10H [facility] Rx#: [id number] Intralipid 20% 250 ml In Premix 250 / 250 1 Bag @ 25 mls/hr IV MoWeFr@ 1600 [facility] Rx#:[id number] Levophed 16 mg In Sodium 17 / 17 Chloride 0.9% 234 ml @ 10 MCG/ MIN 9.37 mls/hr IV Q24H [facility] Rx# :[id number] Zosyn 3.375 gm In Dextrose 5% 50 / 50 50 / 50 50 / 50 in Water 50 ml @ 100 mls/hr IV Q6H [facility] Rx#:[id number] Diprivan 1,000 mg In Premix 1 100 / 100 Bag @ 5 MCG/KG/MIN 2.42 mls/hr IV .Q24H PRN Rx#:[id number] Output: Gastric Drainage 60 / 60 100 / 100 Left Upper Quadrant 5 / 5 NG/OG 25 / 25 100 / 100 Right Upper Quadrant 30 / 30 Drainage 245 / 245 225 / 225 RIDDHI 'A' 30 / 30 40 / 40 RIDDHI 'B' 20 / 20 20 / 20 RIDDHI 'C' 30 / 30 40 / 40 RIDDHI 'D' 35 / 35 25 / RIDDHI 'E' 20 / 20 20 / 20 RIDDHI 'F' 110 / 110 80 / 80 Urine Catheter Amount 2935 / 2935 540 / 540 301 / 301 Stool 60 / 60 Other: # Bowel Movements 0 - Additional findings Additional findings: General: Ventilated and sedated Chest: Diminished at right base, no wheezes or rhonchi at my exam Cardiovascular: Regular Abdomen: Occasional bowel sound, dressings in place, stomas intact Extremities: Some nonpitting edema around pelvic girdle and upper extremities. Neuro: Sedated with propofol, some spontaneous movement, especially when sedation lightened Medical - PN: Obj Da - Labs CBC & Chem 7: 06/16/17 03:30 06/16/17 04:00 Labs: Abnormal Lab Results 06/16/17 06/16/17 06/16/17 04:00 04:00 03:30 WBC 13.2 H RBC 3.83 L Hgb 10.1 L Hct 31.2 L MCV MCH RDW 16.6 H Gran % Lymph % (Auto) Lymph # (Auto) Seg Neutrophils % Band Neutrophils % 13 H Lymphocytes % 4 L RBC Morphology Abnorm A Hypochromasia Anisocytosis 1+ A Microcytosis RBC Fragments PT INR APTT Sodium Potassium 3.1 L Carbon Dioxide 21 L Creatinine Glucose 167 H Uric Acid 1.7 L Calcium 7.3 L Phosphorus 2.1 L Magnesium Direct Bilirubin GGT 43 H AST ALT Alkaline Phosphatase Lactate Dehydrogenase NT-Pro-B Natriuret Pep 4115.0 H Total Protein 4.0 L Albumin 2.1 L Globulin 1.9 L Prealbumin 06/15/17 06/15/17 06/15/17 17:35 15:57 03:54 WBC RBC Hgb Hct MCV MCH RDW Gran % Lymph % (Auto) Lymph # (Auto) Seg Neutrophils % Band Neutrophils % Lymphocytes % RBC Morphology Hypochromasia Anisocytosis Microcytosis RBC Fragments PT INR APTT Sodium Potassium Carbon Dioxide Creatinine Glucose Uric Acid Calcium Phosphorus Magnesium Direct Bilirubin GGT AST ALT Alkaline Phosphatase Lactate Dehydrogenase NT-Pro-B Natriuret Pep 3064.0 H 1444.0 H Total Protein Albumin Globulin Prealbumin 4.3 L 3.8 L 06/15/17 06/15/17 06/14/17 03:54 03:54 20:04 WBC RBC 3.42 L Hgb 8.7 L Hct 27.1 L MCV 79.1 L MCH 25.5 L RDW 15.4 H Gran % Lymph % (Auto) Lymph # (Auto) Seg Neutrophils % Band Neutrophils % 50 H Lymphocytes % 3 L RBC Morphology Abnorm A Hypochromasia 1+ A Anisocytosis 1+ A Microcytosis 1+ A RBC Fragments Occ A PT INR APTT Sodium 132 L Potassium Carbon Dioxide 18 L Creatinine 0.4 L Glucose 119 H 176 H Uric Acid 2.2 L Calcium 6.5 L 7.3 L Phosphorus 1.8 L Magnesium 1.4 L 1.5 L Direct Bilirubin 0.4 H 0.4 H GGT 54 H 77 H AST ALT Alkaline Phosphatase Lactate Dehydrogenase 89 L NT-Pro-B Natriuret Pep Total Protein 3.2 L 3.6 L Albumin 1.9 L 2.1 L Globulin 1.3 L 1.5 L Prealbumin 06/14/17 06/14/17 06/14/17 20:04 12:37 12:37 WBC 4.3 L RBC 3.59 L Hgb 9.0 L Hct 28.0 L MCV 78.0 L MCH 25.1 L RDW 15.6 H Gran % 88.6 H Lymph % (Auto) 3.8 L Lymph # (Auto) 0.2 L Seg Neutrophils % Band Neutrophils % Lymphocytes % RBC Morphology Hypochromasia Anisocytosis Microcytosis RBC Fragments PT 17.4 H INR 1.4 H APTT 46 H Sodium Potassium Carbon Dioxide Creatinine Glucose Uric Acid Calcium Phosphorus Magnesium Direct Bilirubin GGT AST ALT Alkaline Phosphatase Lactate Dehydrogenase NT-Pro-B Natriuret Pep 540.5 H Total Protein Albumin Globulin Prealbumin 06/14/17 06/14/17 04:55 04:55 WBC 22.8 H RBC Hgb 10.8 L Hct 33.2 L MCV 79.1 L MCH 25.7 L RDW 14.8 H Gran % Lymph % (Auto) Lymph # (Auto) Seg Neutrophils % 84 H Band Neutrophils % Lymphocytes % 3 L RBC Morphology Hypochromasia 1+ A Anisocytosis Microcytosis 1+ A RBC Fragments PT INR APTT Sodium Potassium Carbon Dioxide 21 L Creatinine Glucose Uric Acid Calcium Phosphorus Magnesium Direct Bilirubin GGT AST 70 H ALT 59 H Alkaline Phosphatase 230 H Lactate Dehydrogenase NT-Pro-B Natriuret Pep Total Protein 5.5 L Albumin 2.9 L Globulin Prealbumin Meds: Medications Acetaminophen (Tylenol) 650 mg PO Q6HP PRN PRN Reason: PAIN/FEVER > 101 Hydrocodone Bitart/Acetaminophen ([place] 5/325mg) 1 tab PO Q4HP PRN PRN Reason: Pain Albuterol Sulfate (Ventolin) 2.5 mg NEB Q2HP PRN PRN Reason: Shortness Of Breath Last Admin: 06/15/17 23:14 Dose: 2.5 mg Artificial Tears (Artificial Tears Ophth Drops) 1 gtt OD QIDP PRN PRN Reason: Dry Eye(s) Last Admin: 06/16/17 10:09 Dose: 1 gtt Chlorhexidine Gluconate (Peridex) 15 ml SWABMOUTH BID [facility] Last Admin: 06/16/17 08:54 Dose: 15 ml Dextrose (Dextrose 50%) 25 ml IV UD PRN PRN Reason: Hypoglycemia Diagnostic Test (Pha) (Accu-Chek) 1 each FS Q6 [facility] Last Admin: 06/16/17 05:23 Dose: 1 each Hydromorphone HCl (Dilaudid) 0.5 mg IV Q1HP PRN PRN Reason: Pain Last Admin: 06/16/17 09:41 Dose: 0.5 mg Metronidazole (Flagyl) 500 mg in 100 mls @ 100 mls/hr IV Q6H [facility] Last Admin: 06/16/17 11:07 Dose: 100 mls/hr Norepinephrine Bitartrate 16 (mg/ Sodium Chloride) 250 mls @ 9.37 mls/hr IV Q24H [facility]; 10 MCG/MIN PRN Reason: Protocol Last Titration: 06/16/17 11:15 Dose: 6 mcg/min, 5.62 mls/hr Sodium Chloride (Sodium Chloride 0.9%) 250 mls @ 20 mls/hr IV .[id number] [facility] Last Admin: 06/16/17 05:20 Dose: 20 mls/hr Acetaminophen (Ofirmev) 1,000 mg in 100 mls @ 200 mls/hr IV Q6HP PRN PRN Reason: PAIN/FEVER > 101 Piperacillin Sod/Tazobactam (Sod 3.375 gm/ Dextrose) 50 mls @ 100 mls/hr IV Q6H [facility] Last Infusion: 06/16/17 06:45 Dose: Infused Calcium Gluconate 5 meq/Magnesium Sulfate 8.12 meq/Sodium Chloride 20 meq/ Potassium Phosphate 40 meq/Multivitamins/Minerals 10 ml/Selenium 60 mcg/ Amino Acids 1,038.3435 mls @ 30 mls/hr IV Q24H [facility] Stop: 06/16/17 15:59 Last Admin: 06/15/17 16:44 Dose: 30 mls/hr Fat Emulsion Intravenous 250 (ml/ Premix) 250 mls @ 25 mls/hr IV MoWeFr@1600 [facility] Last Infusion: 06/16/17 03:17 Dose: Infused Sodium Chloride (Sodium Chloride 0.9%) 1,000 mls @ 100 mls/hr IV .Q10H [facility] Last Admin: 06/16/17 05:20 Dose: 100 mls/hr Propofol 1,000 mg/ Premix 100 mls @ 2.42 mls/hr IV .Q24H PRN; Protocol; 5 MCG/ KG/MIN PRN Reason: ANXIETY/SEDATION Last Admin: 06/16/17 10:09 Dose: 20 mcg/kg/min, 9.71 mls/hr Calcium Gluconate 5 meq/Magnesium Sulfate 8.12 meq/Sodium Chloride 40 meq/ Potassium Phosphate 40 meq/Multivitamins/Minerals 10 ml/Selenium 60 mcg/ Potassium Chloride 20 meq/ Amino Acids 1,053.3435 mls @ 45 mls/hr IV Q24H [facility] Insulin Human Lispro (Humalog) 0 unit SQ Q6 [facility] PRN Reason: Protocol Stop: 06/16/17 12:01 Last Admin: 06/16/17 05:29 Dose: 1 unit Midazolam HCl (Versed) 1 mg IV Q30MIN PRN PRN Reason: Sedation Ondansetron HCl (Zofran) 4 mg IV Q6HP PRN PRN Reason: Nausea And Vomiting Ondansetron HCl (Zofran Odt) 4 mg SL Q6HP PRN PRN Reason: Nausea And Vomiting Pantoprazole Sodium (Protonix) 40 mg IV BIDAC [facility] Last Admin: 06/16/17 07:30 Dose: 40 mg Sodium Chloride (Saline Flush) 10 ml IV UD PRN PRN Reason: medication Sodium Chloride (Saline Flush) 10 ml IV Q8 [facility] Last Admin: 06/16/17 05:30 Dose: 10 ml Medical - PN: A/P (1) Nausea & vomiting Status: Acute Current Visit: Yes (2) UTI due to Klebsiella species Status: Acute Current Visit: Yes (3) Colon obstruction Problem details: Mass in sigmoid, resected 06/14/2017 Status: Acute Current Visit: Yes (4) Perforation bowel Status: Acute Current Visit: Yes - Narrative A/P Narrative: 77-year-old female without GI illness presents with abdominal pain, nausea and vomiting. Also has urinary tract infection. Evolution of distal colonic obstruction, subsequently went to the operating room on 06/14, resection of sigmoid mass, a contained perforation of transverse colon and spontaneous rupture of right colon intraoperatively. Postop day #2, status post exploratory laparotomy, hemicolectomy with ileostomy , Clark's procedure with mucous fistula. Pulmonary. Sedated and ventilated. Pulmonary pressures good, oxygenating well on FiO2 0.35. Plan to keep intubated until she goes back to the OR. Follow daily chest radiograph. Currently on Zosyn and metronidazole. Continuing with aerosols while on the vent with mild asthma. Cardiovascular. Good diuresis after furosemide yesterday. Still some nonpitting edema. CVP indicates volume replete. Plan: 20 mg of Lasix further today, continue to monitor hemodynamics, norepinephrine as needed to maintain MAP. Renal. Maintaining adequate urine output, but will give further diuresis today. Renal function normal. Monitor Infectious disease. On Zosyn and metronidazole following surgery for perforated viscus. Continue. Klebsiella urinary tract infection, being addressed by Zosyn. UTI present on admission. F/E/N. Repleting electrolytes as needed. On TPN. CODE STATUS, discussed with the patient, is DNR Prophylaxis: Protonix, SCD's 30 minutes critical care time Procedures - Arterial Line Size (Gauge): 20
--- NOTE | 2017-06-16 13:57 | General Surgery Progress Note ---
Subjective Patient reports: bowel movement, other (Maximum temperature 99.7) Narrative: Note initiated : 06/16/17 at 1:55 pm Service Date, if different from initiated Date: [] Patient: Caroline Bellamy 77 y/o F admitted on 06/12/17 for N/V, UTI, Constipation/Colon Obstruction, UTI. Chief Complaint: [Patient is clinically stable. Her vital signs have been good and she does not have significant tachycardia. Peak temperature is 99.7. She is starting to have some output through her ileostomy. Her abdominal surgical incision was examined and the base is clean. Her chest x-ray she still shows extensive bilateral interstitial infiltrates that is probably interstitial edema. Her general peripheral edema is about the same. Her white blood count is at 13.2.] Objective Temp Pulse Resp BP Pulse Ox 100.1 F H 94 H 16 122/61 97 06/16/17 13:00 06/16/17 13:33 06/16/17 13:02 06/16/17 13:00 06/16/17 13:33 - Additional Data Intake & Output - Last 24 hours: Intake & Output 06/14/17 06/15/17 06/16/17 06/17/17 05:59 05:59 05:59 05:59 Intake Total 2068 / 2068 08823 / 60258 6105.0909 / 6105.0909 404 / 404 Output Total 220 / 220 1379 / 1379 4903 / 4903 734 / 734 Balance 1848 / 1848 9484 / 9484 1202.0909 / 1202.0909 -330 / -330 Weight 170 lb 159 lb 4.8 oz 178 lb 8 oz - General physical appearance no distress, other (Sedated and ventilated) - Eyes PERRL - Neck other (positive JVD with CVP of 12;) - Respiratory other (Decreased breath sounds bilaterally) - Cardiovascular Cardiovascular exam: Present: normal rate and rhythm, +S1, +S2, tachycardia - Abdomen distended (Mild distention; wound base is clean; stomas are functioning and viable) - Integumentary no rash, no growths, no abnormal pigmentation - Neurologic other (Sedated and ventilated) - Psychiatric other (Sedated and ventilated) - Labs 06/16/17 03:30 06/16/17 04:00 Diabetes panel 06/16/17 Range/Units 04:00 Sodium 136 (133-145) mmol/L Potassium 3.1 L (3.3-5.1) mmol/L Chloride 102 (96-108) mmol/L Carbon Dioxide 21 L (22-30) mmol/L BUN 9 (8-23) mg/dl Creatinine 0.6 (0.6-1.1) mg/dl Glucose 167 H (70-105) mg/dL Calcium 7.3 L (8.6-10.4) mg/dl AST 14 (0-37) U/l ALT 17 (0-40) U/l Alkaline Phosphatase 56 (39-117) U/L Total Protein 4.0 L (5.9-8.4) gm/dL Albumin 2.1 L (3.2-5.2) gm/dL Triglycerides 83 (<150) mg/dl Calcium panel 06/16/17 Range/Units 04:00 Calcium 7.3 L (8.6-10.4) mg/dl Phosphorus 2.1 L (2.7-4.5) mg/dL Albumin 2.1 L (3.2-5.2) gm/dL Pituitary panel 06/16/17 Range/Units 04:00 Sodium 136 (133-145) mmol/L Potassium 3.1 L (3.3-5.1) mmol/L Chloride 102 (96-108) mmol/L Carbon Dioxide 21 L (22-30) mmol/L BUN 9 (8-23) mg/dl Creatinine 0.6 (0.6-1.1) mg/dl Glucose 167 H (70-105) mg/dL Calcium 7.3 L (8.6-10.4) mg/dl Adrenal panel 06/16/17 Range/Units 04:00 Sodium 136 (133-145) mmol/L Potassium 3.1 L (3.3-5.1) mmol/L Chloride 102 (96-108) mmol/L Carbon Dioxide 21 L (22-30) mmol/L BUN 9 (8-23) mg/dl Creatinine 0.6 (0.6-1.1) mg/dl Glucose 167 H (70-105) mg/dL Calcium 7.3 L (8.6-10.4) mg/dl Total Bilirubin 0.4 (0.0-1.0) mg/dL AST 14 (0-37) U/l ALT 17 (0-40) U/l Alkaline Phosphatase 56 (39-117) U/L Total Protein 4.0 L (5.9-8.4) gm/dL Albumin 2.1 L (3.2-5.2) gm/dL Assessment and Plan (1) Colon obstruction Problem details: Mass in sigmoid, resected 06/14/2017 Status: Acute Assessment and plan: will proceed with a second look procedure tomorrow with repeat peritoneal cultures. If her peritoneum is clean we will leave drains intact and do full peritoneal and subcutaneous closure. Current Visit: Yes (2) Anemia Status: Acute Assessment and plan: She is receiving every 6 hours albumin infusion 2 days Current Visit: Yes (3) UTI due to Klebsiella species Status: Acute Current Visit: Yes - Time Spent With Patient Total time spent is greater than 50% in coordination of care (as documented) at patient's floor/unit and/or counseling patient:
--- NOTE | 2017-06-16 14:20 | Surgical Pathology Report ---
HISTOLOGY SPECIMEN MICROSCOPIC DIAGNOSIS SPECIMEN A - OVARY, RIGHT, OOPHORECTOMY: -- BENIGN OVARY WITH ATROPHIC CHANGES, ENDOSALPINGIOSIS, AND FIBROUS ADHESIONS. SPECIMEN B - COLON, SIGMOID, SIGMOIDECTOMY: -- DIVERTICULITIS WITH ASSOCIATED PERICOLONIC FIBROSIS, INFLAMMATION, AND FOREIGN BODY GIANT CELL REACTION CONSISTENT WITH PERFORATION. -- REACTIVE PERICOLONIC LYMPH NODES (3). -- VIABLE MARGINS OF EXCISION. -- NO EVIDENCE OF DYSPLASIA OR MALIGNANCY. SPECIMEN C - COLON, CECUM AND TRANSVERSE, EXTENDED RIGHT COLECTOMY: -- ISCHEMIC COLITIS AND DIVERTICULITIS WITH ASSOCIATED PERICOLONIC ABSCESS FORMATION AND FIBRINOPURULENT SEROSITIS, CONSISTENT WITH PERFORATION. -- SEROSAL ADHESIONS. -- FOURTEEN REACTIVE PERICOLONIC LYMPH NODES WITH FOCAL HYALINIZED GRANULOMAS, SEE COMMENT. -- VIABLE MUCOSAL MARGINS. -- NO EVIDENCE OF DYSPLASIA OR MALIGNANCY. (SE:djf) COMMENT: Sections from the sigmoid colon demonstrate extensive diverticulitis with features consistent with perforation. Sections from the cecum and transverse colon demonstrate diffuse ischemic colitis as well as diverticulitis with associated perforation. Four of the fourteen pericolonic lymph nodes demonstrate non-necrotizing hyalinized granulomas. Special stains are negative for acid fast and fungal organisms (adequate technical controls). The significance of the granulomatous inflammation is uncertain and may represent an inflammatory response to the diverticular perforation. Other diagnostic considerations for granulomatous inflammation might include foreign bodies, infection, and sarcoidosis. Clinical correlation is recommended. PROCEDURAL IMPRESSION Colon obstruction. GROSS DESCRIPTION Specimen A: Received in formalin labeled with "A", is a palma ovary. It is 2.7 x 1.3 x 1.0 cm. Cut surfaces are pink-palma. There are multiple cavities from less than 0.1 to 0.3 cm filled with pink-palma fluid. Assembler Filters sections submitted - one cassette. Specimen B: Received in formalin labeled sigmoid colon, is a cary-palma segment of colon. It is received closed with some attached fat and both margins stapled. It is 9.9 cm in length, has an average diameter of 2.1 cm and a dilated area with an average diameter of 3.5 cm. The mucosa in the dilated area is pink-palma and has broad folds. The wall thickness is up 0.6 cm. The serosa is palma with some cary-palma possible exudate and adhesions. The mucosa of the nondilated portion is palma and shows the normal plicated pattern. There are a few areas of diverticula. There are no candidate lymph nodes identified. Assembler Filters sections submitted - seven cassettes: B1 - margins; B2 random sections through broad and dilated area; B3 - transition between normal to dilated; B4 - possible diverticula; B5-B6 - possible cary-palma exudate; B7 - random sections. (SCB:frank) Specimen C: Received in formalin labeled with "C", is a closed segment of colon with attached palma fat. It is approximately 37.0 cm in length. There is a dilated portion with an average diameter of 6.0 cm and a narrower portion with average diameter of 2.2 cm. The specimen is received with both margins stapled. It is opened along its length to reveal palma fecal material. The wall thickness in the dilated area ranges from 0.1-0.3 cm. In the narrow area is up to 0.3 cm thick. The broadened area is up to 22.5 cm long. The stapled margin here will be inked black and designated (presumed) proximal. The dilated area has cary-palma serosa with cary-palma possible exudate. The mucosa is pink-palma with broadened folds and mottled, dusky green-palma areas. There are areas of possible diverticula throughout the colon. The serosa of the narrow area is cary-palma with palma possible exudate. The mucosa is pink-palma and shows a normal plicated pattern. Grossly there are no perforations identified. There are multiple candidate lymph nodes identified from less than 0.1 to 0.8 cm in greatest dimension. Assembler Filters sections submitted eleven cassettes: C1 - margins; C2-C3 - green splotchy areas in the dilated end; C4-C5 - possible diverticula; C6-C8 - sections showing possible cary-palma exudate on the serosal surface with C7 and C8 having full cross section halved; C9 - random sections; C10-C11 - candidate lymph nodes. (SCB:sln) Electronically Signed by: Joanie Naidu D.O.
[2017-06-16] MEDS ORDERED: CALCIUM GLUCONATE 5 MEQ, MAGNESIUM SULFATE 8.12 MEQ, SODIUM CHLORIDE 40 MEQ, POTASSIUM ... IV SCH (16:00)
[2017-06-16] MEDS: ALBUTEROL SULFATE 2.5 MG/3 ML NEBULIZER NEB PRN (19:56)
[2017-06-17] MEDS: PIPERACILLIN SODIUM/TAZOBACTAM 3.375 GM in DEXTROSE 5% IN WATER 50 ML IV SCH ×4 (00:05→18:36)
[2017-06-17] MEDS: 0.9 % SODIUM CHLORIDE 250 ML IV SCH ×2 (02:09→16:54)
[2017-06-17] MEDS: metroNIDAZOLE 500 MG/100 ML BAG IV SCH ×4 (04:52→23:13)
[2017-06-17] MEDS: HYDROmorphone 2 MG/ML SYRINGE IV PRN ×6 (04:59→22:25)
[2017-06-17] MEDS: PROPOFOL 1,000 MG in PREMIX 1 BAG IV PRN ×2 (05:24→22:11)
[2017-06-17] MEDS: 0.9 % SODIUM CHLORIDE 10 ML SYRINGE IV SCH ×3 (05:26→22:32)
[2017-06-17 05:41] LABS: Mean Cell Volume 81.5 fL (80.0-100.0); Mean Corpuscular HGB Conc 32.6 g/dL (31.0-36.0); Mean Corpuscular Hemoglobin 26.6 pg (26.0-34.0); Platelet Count 370 K/mcL (140-440); RBC 3.68 M/mcL (4.00-5.20); Red Cell Distribution Width 16.8 % (11.5-14.5)
[2017-06-17 06:50] LABS: Anisocytosis 1+ (NONE SEEN); Band Neutrophils % 9 % (0-10); Eosinophils % (Manual) 2 % (0-7); Lymphocytes % 4 % (15-49); Monocytes % (Manual) 4 % (1-12); Platelet Estimate NORMAL (NORMAL); RBC Morphology ABNORM (NORMAL); Segmented Neutrophils % 81 % (38-78)
[2017-06-17 07:09] LABS: ALT/SGPT 14 U/l (0-40); Albumin 1.7 gm/dL (3.2-5.2); Albumin/Globulin Ratio 0.8 (1.0-2.3); Alkaline Phosphatase 59 U/L (39-117); Bilirubin,Direct < 0.2 mg/dL (0.0-0.3); Blood Urea Nitrogen 9 mg/dl (8-23); Gamma Glutamyl Transpeptidase 38 U/L (5-36); Magnesium 1.7 mg/dL (1.6-2.5); Uric Acid 1.2 mg/dL (2.5-8.0)
[2017-06-17] MEDS: PANTOPRAZOLE 40 MG VIAL IV SCH ×2 (07:32→17:31)
[2017-06-17] MEDS: 0.9 % SODIUM CHLORIDE 1,000 ML IV SCH ×2 (07:59→16:54)
[2017-06-17] MEDS ORDERED: POTASSIUM CHLORIDE 20 MEQ in DEXTROSE 5% IN WATER 100 ML IV ONE (08:00)
[2017-06-17] MEDS: CHLORHEXIDINE GLUCONATE 1 ML ORAL.SOL SWABMOUTH SCH ×2 (09:17→20:31)
[2017-06-17] MEDS: NOREPINEPHRINE BITARTRATE 16 MG in 0.9 % SODIUM CHLORIDE 234 ML IV SCH (09:20)
[2017-06-17] MEDS ORDERED: POTASSIUM PHOSPHATE 40 MEQ in DEXTROSE 5% IN WATER 500 ML IV ONE (10:00)
[2017-06-17] MEDS ORDERED: MIDAZOLAM 5 MG/5 ML VIAL IV ONE (10:25)
[2017-06-17] MEDS ORDERED: ONDANSETRON 4 MG/2 ML VIAL IV ONE (10:25)
[2017-06-17] MEDS ORDERED: ROCURONIUM 10 MG/ML ML IV ONE (10:25)
[2017-06-17] MEDS ORDERED: KETAMINE 100 MG/ML ML IV ONE (10:25)
[2017-06-17] MEDS ORDERED: PHENYLEPHRINE 10 MG/ML VIAL IV ONE (10:25)
[2017-06-17] MEDS ORDERED: GLYCOPYRROLATE 0.2 MG/ML VIAL IV ONE (10:25)
[2017-06-17] MEDS ORDERED: BACITRACIN 50,000 UNIT VIAL IR ONE (11:27)
--- NOTE | 2017-06-17 11:43 | Brief Operative Note ---
Date of procedure: 06/17/17 Pre-op diagnosis: perforated colon s/p extended right colectomy and hartmans with ileostomy Post-op diagnosis: same Procedure: SECOND LOOK (planned) exploratory laparotomy with delayed closure Grafts/Implants: No Anesthesia: GETA Findings: all bowel looks good without interloop abscesses; bowel is viable Complications: none Surgeon: Amada Eubanks Estimated blood loss (cc): 10 Specimens Removed/Pathology: none sent Condition: critical Disposition: ICU
--- NOTE | 2017-06-17 12:19 | Operative Note ---
DATE OF OPERATION: 06/17/2017 PREOPERATIVE DIAGNOSIS: Perforated colon status post extended right colectomy and Brendon's procedure with ileostomy. POSTOPERATIVE DIAGNOSIS: Perforated colon status post extended right colectomy and Brendon's procedure with ileostomy. PROCEDURE: Second-look planned exploratory laparotomy with delayed closure. SURGEON: Amada Eubanks MD. FINDINGS: The bowel looks viable without any evidence of ongoing infection. There were no interloop abscesses. The stomas were viable. There were no collections of purulence. DESCRIPTION: Under general anesthesia, the abdomen was prepped. The stomas were covered with a Vi-Drape. The incision fascial sutures were removed. Exploration of the abdomen revealed some collection of turbid fluid in between the loops of small bowel and in the pelvis. However, there was no evidence of abscesses. Copious irrigation of both subphrenic areas, pelvis, both gutters, base of the mesentery and the interloop areas was carried out. Once this was done the drains were replaced in their proper position. The stomas looked good, and the bowel was totally healthy. The sponge, needle, instrument and blade counts were correct. The fascia was closed with running locking #1 Prolene. Subcutaneous tissue was vigorously cleansed with a surgical brush. It was then irrigated with saline. It was then covered with bacitracin powder. The subcutaneous fat was closed with running 2-0 Monocryl. Skin was closed with agata. Tegaderm dressing was placed, and stoma appliances were placed. The patient tolerated the procedure well. Her ET tube was also replaced, and she was left intubated, transferred to the ICU in critical but improving condition. LCS:keke Job ID: [id number] Doc ID: [id number] Amada Eubanks M.D.
--- NOTE | 2017-06-17 13:04 | XRay Report ---
CLINICAL INFORMATION: Respiratory distress COMPARISON: 06/16/2017 0707 hours FINDINGS: Moderate cardiomegaly is unchanged. Mediastinum is unremarkable. Endotracheal tip remains 16 mm above the ama. NG tube and right subclavian line in stable satisfactory position. Pulmonary vessels are normal. Moderate patchy infiltrates in both lung bases are unchanged from yesterday. Small bilateral pleural effusions noted IMPRESSION: No change in patchy bibasilar infiltrates. Small bilateral pleural effusions Endotracheal tip 16 mm above the ama Interpreted and Authenticated by: Valentin Torres 06/17/17
--- NOTE | 2017-06-17 13:06 | XRay Report ---
CLINICAL INFORMATION: ET tube placement COMPARISON: 06/18/2017 0636 hours FINDINGS: Endotracheal tip is now a 21 mm above the ama. Right subclavian line and NG tube stable satisfactory position. Mild cardiomegaly stable. Mediastinum and pulmonary vessels are normal. Moderate patchy infiltrates and both mid and lower lungs, more prominent on the right side, show slight worsening from earlier film earlier in the day. Small bilateral pleural effusions noted IMPRESSION: 1. Endotracheal tip is now 21 mm above the ama. Position improved 2. Moderate patchy bilateral mid and lower lung infiltrates worsening propeller and in the day. It is more prominent on the right. Small bilateral pleural effusions Interpreted and Authenticated by: Valentin Torres 06/17/17
[2017-06-17] MEDS: POLYVINYL ALCOHOL OPHTH DROPS 15ML BOTTLE OD PRN (14:20)
[2017-06-17] MEDS ORDERED: ACETAMINOPHEN 1,000 MG/100 ML BOTTLE IV PRN (15:17)
[2017-06-17] MEDS ORDERED: MIDAZOLAM 2 MG/2 ML VIAL IV PRN (15:17)
[2017-06-17] MEDS ORDERED: ALBUTEROL SULFATE 2.5 MG/3 ML NEBULIZER NEB PRN (15:17)
[2017-06-17] MEDS ORDERED: ONDANSETRON 4 MG/2 ML VIAL IV PRN (15:17)
[2017-06-17] MEDS ORDERED: ACETAMINOPHEN 325 MG TABLET PO PRN (15:17)
[2017-06-17] MEDS ORDERED: TPN PER PHARMACY IV SCH (15:17)
[2017-06-17] MEDS ORDERED: DEXTROSE 50% 50 ML VIAL IV PRN (15:17)
--- NOTE | 2017-06-17 15:26 | Internal Med Progress Note ---
Medical - PN: Subj Patient information: Note initiated : 06/17/17 at 3:21 pm Service Date, if different from initiated Date: [] Patient: Caroline Bellamy a 77 y/o F admitted on 06/12/17 for N/V, UTI, Constipation/Colon Obstruction, UTI. Chief Complaint: f/u abdominal sepsis/perforation Interval history: June 12 Ms. Adiel Cardoso is a 77 year old F who presents to the ED with ongoing complaints of abdominal pain. Patient awoke last Thursday with abdominal pain. She was also nauseated. She was seen in the emergency department due to ongoing symptoms on Thursday, 06/08. CT scan at that time showed some colonic thickening and wall edema without significant inflammatory changes. There was also diverticulosis. She had evidence of urinary tract infection and was started on Septra. Patient remained nauseated and was unable to take the Septra. She continued to have significant abdominal pain, up to 06/09. On the day following her ED visit , she was nauseated and was unable to keep anything down. She presented back to the emergency department, had Bactrim stopped and was changed over to ciprofloxacin. Neither the patient nor her family were aware that a new prescription of been generated and it was never picked up. On Thursday and she continued to have vomiting which was without blood. She continued to have significant abdominal pain up to "08/09". She presents back to the emergency department today because of ongoing abdominal pain, nausea and vomiting. With the onset of the pain a week ago, the pain was severe and was in the left lower quadrant, changing over to the right lower quadrant and becoming generalized as last week has progressed. She describes the quality of the pain is constant and aching with intermittent bouts of stabbing pain. Associated with nausea, vomiting without hematemesis. She has hydrocodone prescription for chronic back pain, that has helped her pain somewhat, though she has had some difficulty keeping medications down. She tried an oral Zofran, was able to keep one done yesterday, but not today. June 13 She is still complaining of significant abdominal pain, more so on the right side from the right upper and right lower quadrant. Tolerating clears, nausea has improved, no ecchymosis. She did have one small hard bowel movement, then to softer ones. She did receive bisacodyl rectally, also oral milk of magnesia and senna last evening. No fever, no chills. No significant dyspnea, has used 1 as needed nebulizer therapy. CT of the abdomen and pelvis was obtained due to ongoing pain. Spoke with radiology, films reviewed, she has dilated colon, ascending, transverse, descending with a transition point in the sigmoid where it decompresses. No pericolonic inflammatory changes, no mural thickening. Patient currently undergoing delayed images to see if there is passage of contrast. June 14 Still complaining of abdominal pain. Had some desaturation overnight, on oxygen. Received dose of furosemide earlier today. Still requiring regular Dilaudid today, though when I see her this morning the interval between when necessary doses has increased somewhat. Final results of CTAP yesterday without passage of contrast. I discussed the case with Dr. Eubanks last evening, he is seeing the patient today , plans to take to the operating room. Her white count was increased to 22,000 today. Ceftriaxone changed to Zosyn this morning. June 15 Patient currently in the intensive care unit following surgery yesterday. Had inflammatory mass causing sigmoid obstruction. Subsequently had rupture of right colon intraoperatively, necessitating colectomy and washout. 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 Wound is being packed open. Overnight patient received fluid resuscitation of 6 L NS, did achieve adequate CVP, still required norepinephrine. Today receiving packed red blood cells, still on norepinephrine, though that has been titrated down a bit. Remains sedated with propofol on ventilator. Plan to go back to the OR Thursday for washout and possible closure. June 16 Patient remained stable, ventilated and sedated. Remains on some Levophed for blood pressure support. Diuresed well with 40 mg of furosemide yesterday. Still with significant thigh and arm edema. Right pleural effusion on radiograph today, though infiltrates/atelectasis improves. Arterial line started to dampen and not function overnight, was removed. June 17 Patient now postop after planned second look exploratory laparotomy. No evidence of intra-abdominal abscess, final closure performed. Some increased airway pressures postoperatively, had been bagged on the way back to the ICU, which may explain some of her airway pressures and an increase in FiO2, seemed to be improving as the afternoon progresses. Nonpitting edema, urine output is adequate but not brisk, on 100 mils an hour fluid. Still on TPN. Still requiring some NE for BP support. - Constitutional Vitals: Vital Signs Temp Pulse Resp BP Pulse Ox 97.5 F 98 H 16 129/77 96 06/17/17 14:00 06/17/17 15:13 06/17/17 14:15 06/17/17 15:12 06/17/17 15:13 Period Temp Pulse Resp BP Sys/[place] Pulse Ox Last 24 Hr 97.5 F-99.2 F 80-106 16-20 69-152/52-91 86-98 Intake and Output 06/17/17 06/17/17 06/17/17 05:59 13:59 21:59 Intake Total 1250 / 1250 373 / 373 Output Total 1055 / 1055 300 / 300 215 / 215 Balance 195 / 195 73 / 73 -215 / -215 Weight 179 lb Patient Weight 06/18/17 05:59 Weight 179 lb Intake & Output: Intake & Output 06/17/17 06/17/17 06/17/17 05:59 13:59 21:59 Intake Total 1250 / 1250 373 / 373 Output Total 1055 / 1055 300 / 300 215 / 215 Balance 195 / 195 73 / 73 -215 / -215 Weight 179 lb Intake: IV 1250 / 1250 373 / 373 Sodium Chloride 0.9% 1,000 ml @ 1000 / 1000 100 mls/hr IV .Q10H KRISS Rx#: [id number] Levophed 16 mg In Sodium 151 / 151 Chloride 0.9% 234 ml @ 10 MCG/ MIN 9.37 mls/hr IV Q24H KRISS Rx# :[id number] Zosyn 3.375 gm In Dextrose 5% 50 / 50 50 / 50 in Water 50 ml @ 100 mls/hr IV Q6H KRISS Rx#:[id number] Diprivan 1,000 mg In Premix 1 100 / 100 72 / 72 Bag @ 5 MCG/KG/MIN 2.42 mls/hr IV .Q24H PRN Rx#:[id number] Output: Drainage 230 / 230 110 / 110 155 / 155 RIDDHI 'A' RIDDHI 'B' RIDDHI 'C' RIDDHI 'D' RIDDHI 'E' RIDDHI 'F' 110 / 110 40 / 40 70 / 70 Urine Catheter Amount 825 / 825 190 / 190 60 / 60 - Additional findings Additional findings: General: Sedated, on ventilator Chest: Anterior rhonchi, diminished laterally and at bases. No wheezes Cardiovascular: Regular Abdomen: Greenish ileostomy output, brownish mucous fistula output, agata intact. Drains with serosanguineous output Neuro: Sedated Medical - PN: Obj Da - Labs CBC & Chem 7: 06/17/17 04:00 06/17/17 04:00 Labs: Abnormal Lab Results 06/17/17 06/17/17 06/17/17 08:37 04:00 04:00 WBC RBC Hgb Hct MCV MCH RDW Gran % Lymph % (Auto) Lymph # (Auto) Seg Neutrophils % Band Neutrophils % Lymphocytes % RBC Morphology Hypochromasia Anisocytosis Microcytosis RBC Fragments PT 16.1 H INR 1.3 H Sodium Potassium 2.8 L* Carbon Dioxide Creatinine 0.5 L Glucose 156 H Uric Acid 1.2 L Calcium 7.2 L Phosphorus 1.5 L Magnesium Direct Bilirubin GGT 38 H Lactate Dehydrogenase NT-Pro-B Natriuret Pep 3634.0 H Total Protein 3.9 L Albumin 1.7 L Globulin Albumin/Globulin Ratio 0.8 L Prealbumin 06/17/17 06/16/17 06/16/17 04:00 04:00 04:00 WBC 13.0 H RBC 3.68 L Hgb 9.8 L Hct 30.0 L MCV MCH RDW 16.8 H Gran % Lymph % (Auto) Lymph # (Auto) Seg Neutrophils % 81 H Band Neutrophils % Lymphocytes % 4 L RBC Morphology Abnorm A Hypochromasia Anisocytosis 1+ A Microcytosis RBC Fragments PT INR Sodium Potassium 3.1 L Carbon Dioxide 21 L Creatinine Glucose 167 H Uric Acid 1.7 L Calcium 7.3 L Phosphorus 2.1 L Magnesium Direct Bilirubin GGT 43 H Lactate Dehydrogenase NT-Pro-B Natriuret Pep 4115.0 H Total Protein 4.0 L Albumin 2.1 L Globulin 1.9 L Albumin/Globulin Ratio Prealbumin 06/16/17 06/15/17 06/15/17 03:30 17:35 15:57 WBC 13.2 H RBC 3.83 L Hgb 10.1 L Hct 31.2 L MCV MCH RDW 16.6 H Gran % Lymph % (Auto) Lymph # (Auto) Seg Neutrophils % Band Neutrophils % 13 H Lymphocytes % 4 L RBC Morphology Abnorm A Hypochromasia Anisocytosis 1+ A Microcytosis RBC Fragments PT INR Sodium Potassium Carbon Dioxide Creatinine Glucose Uric Acid Calcium Phosphorus Magnesium Direct Bilirubin GGT Lactate Dehydrogenase NT-Pro-B Natriuret Pep 3064.0 H Total Protein Albumin Globulin Albumin/Globulin Ratio Prealbumin 4.3 L 3.8 L 06/15/17 06/15/17 06/15/17 03:54 03:54 03:54 WBC RBC 3.42 L Hgb 8.7 L Hct 27.1 L MCV 79.1 L MCH 25.5 L RDW 15.4 H Gran % Lymph % (Auto) Lymph # (Auto) Seg Neutrophils % Band Neutrophils % 50 H Lymphocytes % 3 L RBC Morphology Abnorm A Hypochromasia 1+ A Anisocytosis 1+ A Microcytosis 1+ A RBC Fragments Occ A PT INR Sodium Potassium Carbon Dioxide 18 L Creatinine 0.4 L Glucose 119 H Uric Acid 2.2 L Calcium 6.5 L Phosphorus 1.8 L Magnesium 1.4 L Direct Bilirubin 0.4 H GGT 54 H Lactate Dehydrogenase 89 L NT-Pro-B Natriuret Pep 1444.0 H Total Protein 3.2 L Albumin 1.9 L Globulin 1.3 L Albumin/Globulin Ratio Prealbumin 06/14/17 06/14/17 20:04 20:04 WBC 4.3 L RBC 3.59 L Hgb 9.0 L Hct 28.0 L MCV 78.0 L MCH 25.1 L RDW 15.6 H Gran % 88.6 H Lymph % (Auto) 3.8 L Lymph # (Auto) 0.2 L Seg Neutrophils % Band Neutrophils % Lymphocytes % RBC Morphology Hypochromasia Anisocytosis Microcytosis RBC Fragments PT INR Sodium 132 L Potassium Carbon Dioxide Creatinine Glucose 176 H Uric Acid Calcium 7.3 L Phosphorus Magnesium 1.5 L Direct Bilirubin 0.4 H GGT 77 H Lactate Dehydrogenase NT-Pro-B Natriuret Pep Total Protein 3.6 L Albumin 2.1 L Globulin 1.5 L Albumin/Globulin Ratio Prealbumin Meds: Medications Acetaminophen (Tylenol) 650 mg PO Q6HP PRN PRN Reason: PAIN/FEVER > 101 Albuterol Sulfate (Ventolin) 2.5 mg NEB Q2HP PRN PRN Reason: Shortness Of Breath Artificial Tears (Artificial Tears Ophth Drops) 1 gtt OD QIDP PRN PRN Reason: Dry Eye(s) Chlorhexidine Gluconate (Peridex) 15 ml [place]TH BID KRISS Dextrose (Dextrose 50%) 25 ml IV UD PRN PRN Reason: Hypoglycemia Diagnostic Test (Pha) (Accu-Chek) 1 each FS Q6 KRISS Hydromorphone HCl (Dilaudid) 0.5 mg IV Q1HP PRN PRN Reason: Pain Calcium Gluconate 5 meq/Magnesium Sulfate 8.12 meq/Sodium Chloride 40 meq/ Potassium Phosphate 40 meq/Multivitamins/Minerals 10 ml/Selenium 60 mcg/ Potassium Chloride 20 meq/ Amino Acids 1,053.3435 mls @ 45 mls/hr IV Q24H KRISS Fat Emulsion Intravenous 250 (ml/ Premix) 250 mls @ 25 mls/hr IV [id number] KRISS Metronidazole (Flagyl) 500 mg in 100 mls @ 100 mls/hr IV Q6H KRISS Norepinephrine Bitartrate 16 (mg/ Sodium Chloride) 250 mls @ 9.37 mls/hr IV Q24H KRISS; 10 MCG/MIN PRN Reason: Protocol Sodium Chloride (Sodium Chloride 0.9%) 1,000 mls @ 100 mls/hr IV .Q10H KRISS Sodium Chloride (Sodium Chloride 0.9%) 250 mls @ 20 mls/hr IV .[id number] KRISS Acetaminophen (Ofirmev) 1,000 mg in 100 mls @ 200 mls/hr IV Q6HP PRN PRN Reason: PAIN/FEVER > 101 Piperacillin Sod/Tazobactam (Sod 3.375 gm/ Dextrose) 50 mls @ 100 mls/hr IV Q6H KRISS Propofol 1,000 mg/ Premix 100 mls @ 2.42 mls/hr IV .Q24H PRN; Protocol; 5 MCG/ KG/MIN PRN Reason: ANXIETY/SEDATION Midazolam HCl (Versed) 1 mg IV Q30MIN PRN PRN Reason: Sedation Ondansetron HCl (Zofran) 4 mg IV Q6HP PRN PRN Reason: Nausea And Vomiting Pantoprazole Sodium (Protonix) 40 mg IV BIDAC KRISS Sodium Chloride (Saline Flush) 10 ml IV UD PRN PRN Reason: medication Sodium Chloride (Saline Flush) 10 ml IV Q8 [facility] Medical - PN: A/P (1) Nausea & vomiting Status: Acute Current Visit: Yes (2) UTI due to Klebsiella species Status: Acute Current Visit: Yes (3) Colon obstruction Problem details: Mass in sigmoid, resected 06/14/2017-diverticulitis Status: Acute Current Visit: Yes (4) Perforation bowel Status: Acute Current Visit: Yes - Narrative A/P Narrative: 77-year-old female without GI illness (though in retrospect has had diverticulitis in past) presents with abdominal pain, nausea and vomiting. Also has urinary tract infection. Evolution of distal colonic obstruction, subsequently went to the operating room on 06/14, resection of sigmoid mass, a contained perforation of transverse colon and spontaneous rupture of right colon intraoperatively. GI. Postop day #3, status post exploratory laparotomy, hemicolectomy with ileostomy , Clark's procedure with mucous fistula. Now Post-op from re-look and delayed closure. Continue Zosyn and metronidazole. Pulmonary. Sedated and ventilated. Pulmonary pressures running a bit high postop, could be from being bagged and off the vent in the perioperative period. Follow while back on ventilator. Follow daily chest radiograph (a little worse post-op , but could be atelectasis from bagging patient). Currently on Zosyn and metronidazole. Continuing with aerosols while on the vent with mild asthma. Cardiovascular. Good diuresis after furosemide Thursday and Thursday. Now post-op, likely fluid shifts in next day. Still some nonpitting edema. Plan: Continue IVF today, follow UOP, may need diuresis tomorrow. Norepinephrine as needed to maintain MAP. Renal. Maintaining adequate, but not brisk urine output. Continue IVF, monitor Infectious disease. On Zosyn and metronidazole following surgery for perforated viscus. Continue. Klebsiella urinary tract infection, being addressed by Zosyn. UTI present on admission. F/E/N. Repleting electrolytes as needed. On TPN. CODE STATUS, discussed with the patient, is DNR Prophylaxis: Protonix, SCD's Procedures - Arterial Line Size (Gauge): 20
[2017-06-17] MEDS: FAT EMULSION 20% 250 ML in PREMIX 1 BAG IV SCH (16:33)
[2017-06-17] MEDS: CALCIUM GLUCONATE 5 MEQ, MAGNESIUM SULFATE 8.12 MEQ, SODIUM CHLORIDE 40 MEQ, POTASSIUM ... IV SCH (16:33)
[2017-06-18] MEDS: PIPERACILLIN SODIUM/TAZOBACTAM 3.375 GM in DEXTROSE 5% IN WATER 50 ML IV SCH ×4 (00:25→19:14)
[2017-06-18] MEDS: 0.9 % SODIUM CHLORIDE 1,000 ML IV SCH (01:08)
[2017-06-18] MEDS: HYDROmorphone 2 MG/ML SYRINGE IV PRN ×3 (04:12→08:27)
[2017-06-18] MEDS: 0.9 % SODIUM CHLORIDE 250 ML IV SCH ×2 (04:17→16:27)
[2017-06-18] MEDS: metroNIDAZOLE 500 MG/100 ML BAG IV SCH ×4 (05:09→22:49)
[2017-06-18 05:10] LABS: Mean Cell Volume 81.6 fL (80.0-100.0); Mean Corpuscular HGB Conc 32.3 g/dL (31.0-36.0); Mean Corpuscular Hemoglobin 26.3 pg (26.0-34.0); Platelet Count 359 K/mcL (140-440); Red Cell Distribution Width 17.2 % (11.5-14.5)
[2017-06-18] MEDS: 0.9 % SODIUM CHLORIDE 10 ML SYRINGE IV SCH ×3 (05:21→21:04)
[2017-06-18 05:24] LABS: ALT/SGPT 11 U/l (0-40); Albumin 1.6 gm/dL (3.2-5.2); Albumin/Globulin Ratio 0.7 (1.0-2.3); Alkaline Phosphatase 49 U/L (39-117); Bilirubin,Direct < 0.2 mg/dL (0.0-0.3); Blood Urea Nitrogen 11 mg/dl (8-23); Gamma Glutamyl Transpeptidase 33 U/L (5-36); Magnesium 1.7 mg/dL (1.6-2.5)
[2017-06-18 06:05] LABS: Anisocytosis 1+ (NONE SEEN); Band Neutrophils % 16 % (0-10); Lymphocytes % 3 % (15-49); Monocytes % (Manual) 5 % (1-12); Ovalocytes 1+ (NONE SEEN); Platelet Estimate NORMAL (NORMAL); RBC Morphology ABNORMAL (NORMAL); Segmented Neutrophils % 76 % (38-78)
--- NOTE | 2017-06-18 07:34 | XRay Report ---
CLINICAL INFORMATION: Follow infiltrates on mechanical ventilation COMPARISON: 06/17/2017 FINDINGS: Endotracheal tip is now in proper position - 3.6 cm above the ama. Right subclavian line and NG tube in stable satisfactory position. Mild cardiomegaly is stable. Mediastinum and pulmonary vessels are normal. Moderate infiltrates and/or atelectasis show modest progression in the lung bases which now appears consolidated. Small bilateral pleural effusions noted IMPRESSION: Moderate bibasilar infiltrates/atelectasis - slight worsening yesterday. Interpreted and Authenticated by: Valentin Torres 06/18/17
[2017-06-18] MEDS: PANTOPRAZOLE 40 MG VIAL IV SCH ×2 (08:27→17:04)
[2017-06-18] MEDS: CHLORHEXIDINE GLUCONATE 1 ML ORAL.SOL SWABMOUTH SCH ×2 (08:29→21:10)
[2017-06-18] MEDS ORDERED: FUROSEMIDE 40 MG/4 ML VIAL IV ONE (09:09)
[2017-06-18] MEDS ORDERED: POTASSIUM CHLORIDE 40 MEQ in DEXTROSE 5% IN WATER 500 ML IV ONE (09:12)
[2017-06-18] MEDS: fentaNYL 2,500 MCG in 0.9 % SODIUM CHLORIDE 200 ML IV SCH (10:23)
[2017-06-18] MEDS: PROPOFOL 1,000 MG in PREMIX 1 BAG IV PRN ×2 (10:27→21:09)
--- NOTE | 2017-06-18 11:06 | Internal Med Progress Note ---
Medical - PN: Subj Patient information: Note initiated : 06/18/17 at 11:04 am Service Date, if different from initiated Date: [] Patient: Caroline Bellamy a 77 y/o F admitted on 06/12/17 for N/V, UTI, Constipation/Colon Obstruction, UTI. Chief Complaint: follow up colonic obstruction/perforation Interval history: June 12 Ms. Adiel Cardoso is a 77 year old F who presents to the ED with ongoing complaints of abdominal pain. Patient awoke last Thursday with abdominal pain. She was also nauseated. She was seen in the emergency department due to ongoing symptoms on Thursday, 06/08. CT scan at that time showed some colonic thickening and wall edema without significant inflammatory changes. There was also diverticulosis. She had evidence of urinary tract infection and was started on Septra. Patient remained nauseated and was unable to take the Septra. She continued to have significant abdominal pain, up to 06/09. On the day following her ED visit , she was nauseated and was unable to keep anything down. She presented back to the emergency department, had Bactrim stopped and was changed over to ciprofloxacin. Neither the patient nor her family were aware that a new prescription of been generated and it was never picked up. On Thursday and she continued to have vomiting which was without blood. She continued to have significant abdominal pain up to "08/09". She presents back to the emergency department today because of ongoing abdominal pain, nausea and vomiting. With the onset of the pain a week ago, the pain was severe and was in the left lower quadrant, changing over to the right lower quadrant and becoming generalized as last week has progressed. She describes the quality of the pain is constant and aching with intermittent bouts of stabbing pain. Associated with nausea, vomiting without hematemesis. She has hydrocodone prescription for chronic back pain, that has helped her pain somewhat, though she has had some difficulty keeping medications down. She tried an oral Zofran, was able to keep one done yesterday, but not today. June 13 She is still complaining of significant abdominal pain, more so on the right side from the right upper and right lower quadrant. Tolerating clears, nausea has improved, no ecchymosis. She did have one small hard bowel movement, then to softer ones. She did receive bisacodyl rectally, also oral milk of magnesia and senna last evening. No fever, no chills. No significant dyspnea, has used 1 as needed nebulizer therapy. CT of the abdomen and pelvis was obtained due to ongoing pain. Spoke with radiology, films reviewed, she has dilated colon, ascending, transverse, descending with a transition point in the sigmoid where it decompresses. No pericolonic inflammatory changes, no mural thickening. Patient currently undergoing delayed images to see if there is passage of contrast. June 14 Still complaining of abdominal pain. Had some desaturation overnight, on oxygen. Received dose of furosemide earlier today. Still requiring regular Dilaudid today, though when I see her this morning the interval between when necessary doses has increased somewhat. Final results of CTAP yesterday without passage of contrast. I discussed the case with Dr. Eubanks last evening, he is seeing the patient today , plans to take to the operating room. Her white count was increased to 22,000 today. Ceftriaxone changed to Zosyn this morning. June 15 Patient currently in the intensive care unit following surgery yesterday. Had inflammatory mass causing sigmoid obstruction. Subsequently had rupture of right colon intraoperatively, necessitating colectomy and washout. 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 Wound is being packed open. Overnight patient received fluid resuscitation of 6 L NS, did achieve adequate CVP, still required norepinephrine. Today receiving packed red blood cells, still on norepinephrine, though that has been titrated down a bit. Remains sedated with propofol on ventilator. Plan to go back to the OR Thursday for washout and possible closure. June 16 Patient remained stable, ventilated and sedated. Remains on some Levophed for blood pressure support. Diuresed well with 40 mg of furosemide yesterday. Still with significant thigh and arm edema. Right pleural effusion on radiograph today, though infiltrates/atelectasis improves. Arterial line started to dampen and not function overnight, was removed. June 17 Patient now postop after planned second look exploratory laparotomy. No evidence of intra-abdominal abscess, final closure performed. Some increased airway pressures postoperatively, had been bagged on the way back to the ICU, which may explain some of her airway pressures and an increase in FiO2, seemed to be improving as the afternoon progresses. Nonpitting edema, urine output is adequate but not brisk, on 100 mils an hour fluid. Still on TPN. Still requiring some NE for BP support. June 18 Norepinephrine weaned off overnight. Remains significantly volume long. During wake up trial this morning, became tachypnea can airway pressures went up , did withdrawal from lower extremity stimuli, but did not open eyes to voice or respond upper extremity stimulus. Had to be re-sedated before this could happen due to her status. Chest x-ray showing some worsening congestion. Between TPN, drips and IV fluids containing almost 200 mL an hour. Will DC maintenance fluids, continuous TPN and drips, give furosemide today. We'll also add fentanyl infusion for baseline pain control in the postoperative state. Also on propofol for sedation. - Constitutional Vitals: Vital Signs Temp Pulse Resp BP Pulse Ox 99.6 F H 89 20 102/60 96 06/18/17 07:00 06/18/17 09:03 06/18/17 07:00 06/18/17 09:01 06/18/17 09:03 Period Temp Pulse Resp BP Sys/[place] Pulse Ox Last 24 Hr 97.2 F-99.6 F 87-106 16-20 69-134/52-84 86-99 Intake and Output 06/17/17 06/18/17 06/18/17 21:59 05:59 13:59 Intake Total 198 / 198 167 / 167 250 / 250 Output Total 735 / 735 1020 / 1020 105 / 105 Balance -537 / -537 -853 / -853 145 / 145 Weight 183 lb 14.4 oz Intake & Output: Intake & Output 06/17/17 06/18/17 06/18/17 21:59 05:59 13:59 Intake Total 198 / 198 167 / 167 250 / 250 Output Total 735 / 735 1020 / 1020 105 / 105 Balance -537 / -537 -853 / -853 145 / 145 Weight 183 lb 14.4 oz Intake: IV 198 / 198 167 / 167 250 / 250 Levophed 16 mg In Sodium 9 / 9 Chloride 0.9% 234 ml @ 10 MCG/ MIN 9.37 mls/hr IV Q24H [facility] Rx# :[id number] Zosyn 3.375 gm In Dextrose 5% 50 / 50 50 / 50 50 / 50 in Water 50 ml @ 100 mls/hr IV Q6H [facility] Rx#:[id number] Diprivan 1,000 mg In Premix 1 13 / 13 100 / 100 Bag @ 5 MCG/KG/MIN 2.42 mls/hr IV .Q24H PRN Rx#:[id number] Output: Gastric Drainage 130 / 130 125 / 125 NG/OG 130 / 130 75 / 75 Right Upper Quadrant 50 / 50 Drainage 245 / 245 250 / 250 RIDDHI 'A' 20 / 20 30 / 30 RIDDHI 'B' 20 / 20 20 / 20 RIDDHI 'C' 5 / 5 RIDDHI 'D' RIDDHI 'E' 60 / 60 50 / 50 RIDDHI 'F' 130 / 130 130 / 130 Urine Catheter Amount 360 / 360 645 / 645 105 / 105 Exam: Sedated, appears comfortable - Eye Eye exam: Present: PERRL. Absent: scleral icterus - ENT ENT exam: Present: mucous membranes moist Additional comments: ETT and OGT in place - Respiratory Respiratory exam: Present: accessory muscle use (not overriding the ventilator) , decreased breath sounds (right base), rhonchi (scattered). Absent: wheezes - Cardiovascular Cardiovascular exam: Present: normal rate and rhythm, systolic murmur. Absent: gallop - GI/Abdominal Additional comments: Few bowel sounds present. Midline incision intact. Right ileostomy with good mucosa. The left mucous fistula with good mucosa. - Extremities Exam Extremities exam: Present: pedal edema (nonpitting edema in upper and lower extremities) - Neurological Exam Additional comments: sedated - Skin Additional comments: some ecchymoses on upper extremities from blood pressure cuffs Medical - PN: Obj Da - Labs CBC & Chem 7: 06/18/17 04:00 06/18/17 04:00 Labs: Abnormal Lab Results 06/18/17 06/18/17 06/18/17 04:00 04:00 04:00 WBC RBC Hgb Hct RDW Seg Neutrophils % Band Neutrophils % Lymphocytes % RBC Morphology Anisocytosis Ovalocytes RBC Fragments PT INR Potassium Carbon Dioxide Creatinine 0.4 L Glucose 165 H Uric Acid 1.0 L Calcium 7.3 L Phosphorus 2.2 L GGT NT-Pro-B Natriuret Pep 5763.0 H Total Protein 3.9 L Albumin 1.6 L Globulin Albumin/Globulin Ratio 0.7 L Prealbumin 3.7 L 06/18/17 06/17/17 06/17/17 04:00 08:37 04:00 WBC 16.0 H RBC 3.70 L Hgb 9.8 L Hct 30.2 L RDW 17.2 H Seg Neutrophils % Band Neutrophils % 16 H Lymphocytes % 3 L RBC Morphology Anisocytosis 1+ A Ovalocytes 1+ A RBC Fragments Few A PT 16.1 H INR 1.3 H Potassium Carbon Dioxide Creatinine Glucose Uric Acid Calcium Phosphorus GGT NT-Pro-B Natriuret Pep 3634.0 H Total Protein Albumin Globulin Albumin/Globulin Ratio Prealbumin 06/17/17 06/17/17 06/16/17 04:00 04:00 04:00 WBC 13.0 H RBC 3.68 L Hgb 9.8 L Hct 30.0 L RDW 16.8 H Seg Neutrophils % 81 H Band Neutrophils % Lymphocytes % 4 L RBC Morphology Abnorm A Anisocytosis 1+ A Ovalocytes RBC Fragments PT INR Potassium 2.8 L* Carbon Dioxide Creatinine 0.5 L Glucose 156 H Uric Acid 1.2 L Calcium 7.2 L Phosphorus 1.5 L GGT 38 H NT-Pro-B Natriuret Pep 4115.0 H Total Protein 3.9 L Albumin 1.7 L Globulin Albumin/Globulin Ratio 0.8 L Prealbumin 06/16/17 06/16/17 06/15/17 04:00 03:30 17:35 WBC 13.2 H RBC 3.83 L Hgb 10.1 L Hct 31.2 L RDW 16.6 H Seg Neutrophils % Band Neutrophils % 13 H Lymphocytes % 4 L RBC Morphology Abnorm A Anisocytosis 1+ A Ovalocytes RBC Fragments PT INR Potassium 3.1 L Carbon Dioxide 21 L Creatinine Glucose 167 H Uric Acid 1.7 L Calcium 7.3 L Phosphorus 2.1 L GGT 43 H NT-Pro-B Natriuret Pep 3064.0 H Total Protein 4.0 L Albumin 2.1 L Globulin 1.9 L Albumin/Globulin Ratio Prealbumin 4.3 L 06/15/17 15:57 WBC RBC Hgb Hct RDW Seg Neutrophils % Band Neutrophils % Lymphocytes % RBC Morphology Anisocytosis Ovalocytes RBC Fragments PT INR Potassium Carbon Dioxide Creatinine Glucose Uric Acid Calcium Phosphorus GGT NT-Pro-B Natriuret Pep Total Protein Albumin Globulin Albumin/Globulin Ratio Prealbumin 3.8 L Meds: Medications Acetaminophen (Tylenol) 650 mg PO Q6HP PRN PRN Reason: PAIN/FEVER > 101 Albuterol Sulfate (Ventolin) 2.5 mg NEB Q2HP PRN PRN Reason: Shortness Of Breath Last Admin: 06/18/17 02:20 Dose: 2.5 mg Artificial Tears (Artificial Tears Ophth Drops) 1 gtt OD QIDP PRN PRN Reason: Dry Eye(s) Chlorhexidine Gluconate (Peridex) 15 ml SWABMOUTH BID [facility] Last Admin: 06/18/17 08:29 Dose: 15 ml Dextrose (Dextrose 50%) 25 ml IV UD PRN PRN Reason: Hypoglycemia Diagnostic Test (Pha) (Accu-Chek) 1 each FS Q6 [facility] Last Admin: 06/18/17 05:40 Dose: 1 each Hydromorphone HCl (Dilaudid) 0.5 mg IV Q1HP PRN PRN Reason: Pain Last Admin: 06/18/17 08:27 Dose: 0.5 mg Calcium Gluconate 5 meq/Magnesium Sulfate 8.12 meq/Sodium Chloride 40 meq/ Potassium Phosphate 40 meq/Multivitamins/Minerals 10 ml/Selenium 60 mcg/ Potassium Chloride 20 meq/ Amino Acids 1,053.3435 mls @ 45 mls/hr IV Q24H [facility] Last Admin: 06/17/17 16:33 Dose: 45 mls/hr Fat Emulsion Intravenous 250 (ml/ Premix) 250 mls @ 25 mls/hr IV [id number] [facility] Last Admin: 06/17/17 16:33 Dose: 25 mls/hr Metronidazole (Flagyl) 500 mg in 100 mls @ 100 mls/hr IV Q6H [facility] Last Infusion: 06/18/17 07:00 Dose: Infused Norepinephrine Bitartrate 16 (mg/ Sodium Chloride) 250 mls @ 9.37 mls/hr IV Q24H [facility]; 10 MCG/MIN PRN Reason: Protocol Sodium Chloride (Sodium Chloride 0.9%) 250 mls @ 20 mls/hr IV .[id number] [facility] Last Admin: 06/18/17 04:17 Dose: Not Given Acetaminophen (Ofirmev) 1,000 mg in 100 mls @ 200 mls/hr IV Q6HP PRN PRN Reason: PAIN/FEVER > 101 Piperacillin Sod/Tazobactam (Sod 3.375 gm/ Dextrose) 50 mls @ 100 mls/hr IV Q6H [facility] Last Infusion: 06/18/17 07:00 Dose: Infused Propofol 1,000 mg/ Premix 100 mls @ 2.42 mls/hr IV .Q24H PRN; Protocol; 5 MCG/ KG/MIN PRN Reason: ANXIETY/SEDATION Last Admin: 06/18/17 10:27 Dose: 13.38 mcg/kg/min, 6.5 mls/hr Fentanyl 2,500 mcg/ Sodium (Chloride) 250 mls @ 5.83 mls/hr IV Q24H [facility]; 0.7 MCG/KG/HR PRN Reason: Protocol Last Admin: 06/18/17 10:23 Dose: 0.7 mcg/kg/hr, 5.83 mls/hr Potassium Chloride 40 meq/ (Dextrose) 520 mls @ 130 mls/hr IV ONCE ONE Stop: 06/18/17 13:11 Last Admin: 06/18/17 10:00 Dose: 130 mls/hr Midazolam HCl (Versed) 1 mg IV Q30MIN PRN PRN Reason: Sedation Ondansetron HCl (Zofran) 4 mg IV Q6HP PRN PRN Reason: Nausea And Vomiting Pantoprazole Sodium (Protonix) 40 mg IV BIDAC [facility] Last Admin: 06/18/17 08:27 Dose: 40 mg Sodium Chloride (Saline Flush) 10 ml IV UD PRN PRN Reason: medication Sodium Chloride (Saline Flush) 10 ml IV Q8 [facility] Last Admin: 06/18/17 05:21 Dose: Not Given - Imaging and cardiology Chest x-ray Status: image reviewed by me Additional comments: FINDINGS: Endotracheal tip is now in proper position - 3.6 cm above the ama. Right subclavian line and NG tube in stable satisfactory position. Mild cardiomegaly is stable. Mediastinum and pulmonary vessels are normal. Moderate infiltrates and/or atelectasis show modest progression in the lung bases which now appears consolidated. Small bilateral pleural effusions noted. - ABG Interpretation ABG results: Medical - PN: A/P - Time Spent With Patient Total time spent is greater than 50% in coordination of care (as documented) at patient's floor/unit and/or counseling patient: Greater than 35 minutes (1) Nausea & vomiting Status: Acute Current Visit: Yes (2) UTI due to Klebsiella species Status: Acute Current Visit: Yes (3) Colon obstruction Problem details: Mass in sigmoid, resected 06/14/2017-diverticulitis Status: Acute Current Visit: Yes (4) Perforation bowel Status: Acute Current Visit: Yes - Narrative A/P Narrative: 77-year-old female without GI illness (though in retrospect has had diverticulitis in past) presents with abdominal pain, nausea and vomiting. Also has urinary tract infection. Evolution of distal colonic obstruction, subsequently went to the operating room on 06/14, resection of sigmoid mass, a contained perforation of transverse colon and spontaneous rupture of right colon intraoperatively. GI. Postop day #4, status post exploratory laparotomy, hemicolectomy with ileostomy , Clark's procedure with mucous fistula. Now Post-op day #1 from re-look and delayed closure. Plan: Per surgery, continue Zosyn and metronidazole, add basal fentanyl for postoperative analgesia. Pulmonary. Sedated and ventilated. Pulmonary pressures high during wake up trial today. FiO2 had decreased back down to 0.35, been higher postop, likely from atelectasis while bagging the patient. Now suspect volume overloaded. Plan: Furosemide today, continue to follow respiratory sugars and oxygen needs, follow daily radiograph. Has history of asthma, continue aerosols while on ventilator. Cardiovascular. Good diuresis after furosemide Thursday and Thursday. Subsequently with weight gain and edema by . No longer requiring norepinephrine for blood pressure. Plan: Saline lock maintenance fluids, discontinue TPN and drips. Give furosemide today. Renal. Maintaining UOP, Cr stable. Monitor Infectious disease. On Zosyn and metronidazole following surgery for perforated viscus. Continue. Klebsiella urinary tract infection, being addressed by Zosyn. UTI present on admission. F/E/N. Repleting electrolytes as needed. On TPN. CODE STATUS, discussed with the patient at admission, is DNR Prophylaxis: Protonix, SCD's Procedures - Arterial Line Size (Gauge): 20
[2017-06-18] MEDS: POLYVINYL ALCOHOL OPHTH DROPS 15ML BOTTLE OD PRN (11:17)
[2017-06-18] MEDS: NOREPINEPHRINE BITARTRATE 16 MG in 0.9 % SODIUM CHLORIDE 234 ML IV SCH (11:41)
[2017-06-18] MEDS ORDERED: VANCOMYCIN PER PHARMACY IV SCH (14:54)
[2017-06-18] MEDS: CALCIUM GLUCONATE 5 MEQ, MAGNESIUM SULFATE 8.12 MEQ, SODIUM CHLORIDE 40 MEQ, POTASSIUM ... IV SCH (16:00)
[2017-06-18] MEDS: VANCOMYCIN 1,500 MG in 0.9 % SODIUM CHLORIDE 500 ML IV SCH (16:00)
--- NOTE | 2017-06-18 18:23 | General Surgery Progress Note ---
Subjective Patient reports: bowel movement, afebrile Narrative: Note initiated : 06/18/17 at 6:21 pm Service Date, if different from initiated Date: [] Patient: Caroline Bellamy 77 y/o F admitted on 06/12/17 for N/V, UTI, Constipation/Colon Obstruction, UTI. Chief Complaint: [Patient remains sedated and ventilated. She failed breathing trial today. Chest x-ray is improved. The drainage from her multiple drains is totally serous and is continuing to decrease in volume. She is afebrile and vitals are normal off pressors. She does not have any significant tachycardia.] Objective Temp Pulse Resp BP Pulse Ox 99.3 F H 91 H 34 H 96/58 97 06/18/17 17:58 06/18/17 17:58 06/18/17 17:10 06/18/17 17:31 06/18/17 17:58 - Additional Data Intake & Output - Last 24 hours: Intake & Output 06/16/17 06/17/17 06/18/17 06/19/17 05:59 05:59 05:59 05:59 Intake Total 6105.0909 / 6105.0909 3828 / 3828 948 / 948 2591.4344 / 2591.4344 Output Total 4903 / 4903 3834 / 3834 2054 / 2054 2915 / 2915 Balance 1202.0909 / 1202.0909 -6 / -6 -1107 / -1107 -323.5656 / -323.5656 Weight 178 lb 8 oz 179 lb 183 lb 14.4 oz - General physical appearance other ( ventilated and sedated) - Neck no masses, no bruits - Respiratory other (Coarse tubular breath sounds bilaterally with decreased breath sounds posterolaterally) - Cardiovascular Cardiovascular exam: Present: JVD, +S1, +S2, tachycardia - Abdomen tender, surgical scars (Incisions look good; she has active bowel sounds; stomas are healthy), distended - Integumentary no rash, no growths, no abnormal pigmentation - Neurologic other (Sedated) - Labs 07/02/17 04:00 07/02/17 04:00 Diabetes panel 06/17/17 06/18/17 Range/Units 17:26 04:00 Sodium 139 (133-145) mmol/L Potassium 4.0 3.8 (3.3-5.1) mmol/L Chloride 106 (96-108) mmol/L Carbon Dioxide 24 (22-30) mmol/L BUN 11 (8-23) mg/dl Creatinine 0.4 L (0.6-1.1) mg/dl Glucose 165 H (70-105) mg/dL Calcium 7.3 L (8.6-10.4) mg/dl AST 10 (0-37) U/l ALT 11 (0-40) U/l Alkaline Phosphatase 49 (39-117) U/L Total Protein 3.9 L (5.9-8.4) gm/dL Albumin 1.6 L (3.2-5.2) gm/dL Triglycerides 54 (<150) mg/dl Calcium panel 06/17/17 06/18/17 Range/Units 17:26 04:00 Calcium 7.3 L (8.6-10.4) mg/dl Phosphorus 3.4 2.2 L (2.7-4.5) mg/dL Albumin 1.6 L (3.2-5.2) gm/dL Pituitary panel 06/17/17 06/18/17 Range/Units 17:26 04:00 Sodium 139 (133-145) mmol/L Potassium 4.0 3.8 (3.3-5.1) mmol/L Chloride 106 (96-108) mmol/L Carbon Dioxide 24 (22-30) mmol/L BUN 11 (8-23) mg/dl Creatinine 0.4 L (0.6-1.1) mg/dl Glucose 165 H (70-105) mg/dL Calcium 7.3 L (8.6-10.4) mg/dl Adrenal panel 06/17/17 06/18/17 Range/Units 17:26 04:00 Sodium 139 (133-145) mmol/L Potassium 4.0 3.8 (3.3-5.1) mmol/L Chloride 106 (96-108) mmol/L Carbon Dioxide 24 (22-30) mmol/L BUN 11 (8-23) mg/dl Creatinine 0.4 L (0.6-1.1) mg/dl Glucose 165 H (70-105) mg/dL Calcium 7.3 L (8.6-10.4) mg/dl Total Bilirubin 0.2 (0.0-1.0) mg/dL AST 10 (0-37) U/l ALT 11 (0-40) U/l Alkaline Phosphatase 49 (39-117) U/L Total Protein 3.9 L (5.9-8.4) gm/dL Albumin 1.6 L (3.2-5.2) gm/dL Assessment and Plan (1) Colon obstruction Problem details: Mass in sigmoid, resected 06/14/2017-diverticulitis Status: Acute Assessment and plan: patient is doing well and should be stable for extubation in 1-2 days Current Visit: Yes (2) Anemia Status: Acute Assessment and plan: she has stable hgb over the past 24 hr Current Visit: Yes (3) UTI due to Klebsiella species Status: Resolved Current Visit: No - Time Spent With Patient Total time spent is greater than 50% in coordination of care (as documented) at patient's floor/unit and/or counseling patient:
[2017-06-19] MEDS: PIPERACILLIN SODIUM/TAZOBACTAM 3.375 GM in DEXTROSE 5% IN WATER 50 ML IV SCH ×4 (00:10→17:23)
[2017-06-19] MEDS: 0.9 % SODIUM CHLORIDE 250 ML IV SCH ×2 (04:28→21:45)
[2017-06-19] MEDS: metroNIDAZOLE 500 MG/100 ML BAG IV SCH ×3 (05:05→17:23)
[2017-06-19] MEDS: 0.9 % SODIUM CHLORIDE 10 ML SYRINGE IV SCH ×3 (05:06→21:45)
[2017-06-19 05:16] LABS: Mean Cell Volume 81.6 fL (80.0-100.0); Mean Corpuscular HGB Conc 32.3 g/dL (31.0-36.0); Mean Corpuscular Hemoglobin 26.3 pg (26.0-34.0); Platelet Count 343 K/mcL (140-440); RBC 3.56 M/mcL (4.00-5.20); Red Cell Distribution Width 17.7 % (11.5-14.5)
[2017-06-19 05:52] LABS: Anisocytosis 2+ (NONE SEEN); Lymphocytes % 2 % (15-49); Monocytes % (Manual) 8 % (1-12); Platelet Estimate NORMAL (NORMAL); RBC Morphology ABNORM (NORMAL); Segmented Neutrophils % 90 % (38-78)
[2017-06-19 05:55] LABS: ALT/SGPT 11 U/l (0-40); Albumin 1.6 gm/dL (3.2-5.2); Alkaline Phosphatase 48 U/L (39-117); Bilirubin,Direct < 0.2 mg/dL (0.0-0.3); Blood Urea Nitrogen 15 mg/dl (8-23); Gamma Glutamyl Transpeptidase 34 U/L (5-36); Magnesium 1.6 mg/dL (1.6-2.5); Uric Acid 1.2 mg/dL (2.5-8.0)
[2017-06-19 05:58] LABS: Albumin/Globulin Ratio 0.7 (1.0-2.3)
[2017-06-19] MEDS: PANTOPRAZOLE 40 MG VIAL IV SCH ×2 (07:13→17:23)
[2017-06-19] MEDS ORDERED: MAGNESIUM SULFATE 2 GM/50 ML BAG IV ONE (08:24)
[2017-06-19] MEDS: NOREPINEPHRINE BITARTRATE 16 MG in 0.9 % SODIUM CHLORIDE 234 ML IV SCH (08:50)
--- NOTE | 2017-06-19 08:52 | XRay Report ---
CLINICAL INFORMATION: Dyspnea on mechanical ventilation COMPARISON: 06/18/2017 FINDINGS: All lines and tubes are in stable satisfactory position. Mild cardiomegaly is stable. Mediastinum and pulmonary vessels are normal. Moderate sized lytic infiltrates in both lung bases show slight improvement aeration compared to yesterday. Small bilateral pleural effusions are unchanged IMPRESSION: Moderate bibasilar infiltrates and small effusions. Slight improvement in infiltrates from yesterday Interpreted and Authenticated by: Valentin Torres 06/19/17
[2017-06-19] MEDS ORDERED: POTASSIUM CHLORIDE 40 MEQ in DEXTROSE 5% IN WATER 250 ML IV ONE (09:00)
[2017-06-19] MEDS: FUROSEMIDE 40 MG/4 ML VIAL IV SCH ×2 (09:06→21:45)
[2017-06-19] MEDS: CHLORHEXIDINE GLUCONATE 1 ML ORAL.SOL SWABMOUTH SCH ×2 (09:30→21:45)
[2017-06-19] MEDS: VANCOMYCIN 1,500 MG in 0.9 % SODIUM CHLORIDE 500 ML IV SCH (09:37)
--- NOTE | 2017-06-19 10:44 | Internal Med Progress Note ---
Medical - PN: Subj Patient information: Note initiated : 06/19/17 at 10:34 am Service Date, if different from initiated Date: [] Patient: Caroline Bellamy a 77 y/o F admitted on 06/12/17 for N/V, UTI, Constipation/Colon Obstruction, UTI. Chief Complaint: [] Interval history: June 12 Ms. Adiel Cardoso is a 77 year old F who presents to the ED with ongoing complaints of abdominal pain. Patient awoke last Thursday with abdominal pain. She was also nauseated. She was seen in the emergency department due to ongoing symptoms on Thursday, 06/08. CT scan at that time showed some colonic thickening and wall edema without significant inflammatory changes. There was also diverticulosis. She had evidence of urinary tract infection and was started on Septra. Patient remained nauseated and was unable to take the Septra. She continued to have significant abdominal pain, up to 06/09. On the day following her ED visit , she was nauseated and was unable to keep anything down. She presented back to the emergency department, had Bactrim stopped and was changed over to ciprofloxacin. Neither the patient nor her family were aware that a new prescription of been generated and it was never picked up. On Thursday and she continued to have vomiting which was without blood. She continued to have significant abdominal pain up to "08/09". She presents back to the emergency department today because of ongoing abdominal pain, nausea and vomiting. With the onset of the pain a week ago, the pain was severe and was in the left lower quadrant, changing over to the right lower quadrant and becoming generalized as last week has progressed. She describes the quality of the pain is constant and aching with intermittent bouts of stabbing pain. Associated with nausea, vomiting without hematemesis. She has hydrocodone prescription for chronic back pain, that has helped her pain somewhat, though she has had some difficulty keeping medications down. She tried an oral Zofran, was able to keep one done yesterday, but not today. June 13 She is still complaining of significant abdominal pain, more so on the right side from the right upper and right lower quadrant. Tolerating clears, nausea has improved, no ecchymosis. She did have one small hard bowel movement, then to softer ones. She did receive bisacodyl rectally, also oral milk of magnesia and senna last evening. No fever, no chills. No significant dyspnea, has used 1 as needed nebulizer therapy. CT of the abdomen and pelvis was obtained due to ongoing pain. Spoke with radiology, films reviewed, she has dilated colon, ascending, transverse, descending with a transition point in the sigmoid where it decompresses. No pericolonic inflammatory changes, no mural thickening. Patient currently undergoing delayed images to see if there is passage of contrast. June 14 Still complaining of abdominal pain. Had some desaturation overnight, on oxygen. Received dose of furosemide earlier today. Still requiring regular Dilaudid today, though when I see her this morning the interval between when necessary doses has increased somewhat. Final results of CTAP yesterday without passage of contrast. I discussed the case with Dr. Eubanks last evening, he is seeing the patient today , plans to take to the operating room. Her white count was increased to 22,000 today. Ceftriaxone changed to Zosyn this morning. June 15 Patient currently in the intensive care unit following surgery yesterday. Had inflammatory mass causing sigmoid obstruction. Subsequently had rupture of right colon intraoperatively, necessitating colectomy and washout. 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 Wound is being packed open. Overnight patient received fluid resuscitation of 6 L NS, did achieve adequate CVP, still required norepinephrine. Today receiving packed red blood cells, still on norepinephrine, though that has been titrated down a bit. Remains sedated with propofol on ventilator. Plan to go back to the OR Thursday for washout and possible closure. June 16 Patient remained stable, ventilated and sedated. Remains on some Levophed for blood pressure support. Diuresed well with 40 mg of furosemide yesterday. Still with significant thigh and arm edema. Right pleural effusion on radiograph today, though infiltrates/atelectasis improves. Arterial line started to dampen and not function overnight, was removed. June 17 Patient now postop after planned second look exploratory laparotomy. No evidence of intra-abdominal abscess, final closure performed. Some increased airway pressures postoperatively, had been bagged on the way back to the ICU, which may explain some of her airway pressures and an increase in FiO2, seemed to be improving as the afternoon progresses. Nonpitting edema, urine output is adequate but not brisk, on 100 mils an hour fluid. Still on TPN. Still requiring some NE for BP support. June 18 Norepinephrine weaned off overnight. Remains significantly volume long. During wake up trial this morning, became tachypnea can airway pressures went up , did withdrawal from lower extremity stimuli, but did not open eyes to voice or respond upper extremity stimulus. Had to be re-sedated before this could happen due to her status. Chest x-ray showing some worsening congestion. Between TPN, drips and IV fluids containing almost 200 mL an hour. Will DC maintenance fluids, continuous TPN and drips, give furosemide today. We'll also add fentanyl infusion for baseline pain control in the postoperative state. Also on propofol for sedation. June 19: Patient seen examined, off pressors but still on [facility] ventilation. labs reviewed , worsening leucocytosis today at 16.3, CXR shows patient has bibasilar infiltrates. The patient was weaned off sedation this AM she opened eyes but did not follow commands, She became tachypenic and tachycardic, on wean trial. Pt TV was increased overnight by RT, changed back to 360 this AM repeat ABG to be done in 30 mins. Vancomycin was added yesterday in light of pulmonary infiltrates, Vent parameters AC mode, TV 360 (was 420 in AM), RR 16, Fio2 40, PEEP 5. Peak pressure 26-28, Plat 19-23, I/0 Pt was negative 1225 yesterday. sedation: propofol and fentanyl Diet TPN Riggs in place Right SC in place for central venous access Pertinent ROS: unable Additional PMFSH (Level 3 Only): Medical History Spasm of paraspinal muscle (Acute) Muscle spasm of back (Acute) Thoracic back pain (Acute) Abdominal pain (Acute) Dilated bile duct (Acute) Pulmonary fibrosis (Acute) Side effects of treatment (Acute) Nausea & vomiting (Acute) UTI due to Klebsiella species (Acute) Colitis (Acute) Colon obstruction (Acute) Anemia (Acute) Perforation bowel (Acute) - Constitutional Vitals: Vital Signs Temp Pulse Resp BP Pulse Ox 99.1 F H 88 22 104/63 95 06/19/17 08:07 06/19/17 09:51 06/19/17 09:15 06/19/17 09:00 06/19/17 09:51 Period Temp Pulse Resp BP Sys/[place] Pulse Ox Last 24 Hr 98.3 F-99.9 F 82-108 18-45 86-159/51-93 92-98 Intake and Output 06/18/17 06/19/17 06/19/17 21:59 05:59 13:59 Intake Total 3029.4344 / 3029.4344 237 / 237 197 / 197 Output Total 910 / 910 950 / 950 920 / 920 Balance 2119.4344 / 2119.4344 -713 / -713 -723 / -723 Weight 186 lb 3.2 oz Intake & Output: Intake & Output 06/18/17 06/19/17 06/19/17 21:59 05:59 13:59 Intake Total 3029.4344 / 3029.4344 237 / 237 197 / 197 Output Total 910 / 910 950 / 950 920 / 920 Balance 2119.4344 / 2119.4344 -713 / -713 -723 / -723 Weight 186 lb 3.2 oz Intake: IV 3029.4344 / 3029.4344 237 / 237 197 / 197 Calcium Gluconate 5 Meq 1053.3435 / 1053.3435 Magnesium Sulfate 8.12 Meq Sodium Chloride 40 Meq Potassium Phosphate 40 Meq Infuvite Adult 10 ml Selenium 60 Mcg Potassium Chloride 20 Meq In Clinimix 5%-20% Solution 1,000 ml @ 45 mls/hr IV Q24H [facility] Rx#:[id number] Zosyn 3.375 gm In Dextrose 5% 100 / 100 50 / 50 50 / 50 in Water 50 ml @ 100 mls/hr IV Q6H [facility] Rx#:[id number] Diprivan 1,000 mg In Premix 1 89 / 89 47 / 47 37 / 37 Bag @ 5 MCG/KG/MIN 2.42 mls/hr IV .Q24H PRN Rx#:[id number] Vancomycin 1,500 mg In Sodium 500 / 500 Chloride 0.9% 500 ml @ 333.3 mls/hr IV Q24H [facility] Rx#: [id number] fentaNYL 2,500 MCG In Sodium 8 / 8 40 / 40 10 / 10 Chloride 0.9% 200 ml @ 0.7 MCG/ KG/HR 5.83 mls/hr IV Q24H [facility] Rx#:[id number] Output: Gastric Drainage 50 / 50 210 / 210 Left Upper Quadrant 60 / 60 NG/OG 50 / 50 Right Upper Quadrant 150 / 150 Drainage 120 / 120 160 / 160 RIDDHI 'A' 15 / 15 RIDDHI 'B' RIDDHI 'C' RIDDHI 'D' RIDDHI 'E' 40 / 40 RIDDHI 'F' 80 / 80 80 / 80 Urine Catheter Amount 740 / 740 740 / 740 760 / 760 Exam: Constitutional; Afebrile, ventilated and seadated. does not follow commands when off sedation, opens eyes to stimulus. Eyes- No icterus, , No periorbital swelling Ears- Ext ear normal, Neck- Midline trachea, supple, ET tube and NG tupe in place Respiratory system: Air Entry equal on both sides, justin conducted breath sounds, justin decreased BS at bases. CVS- Rate rhythm regular, S1,S2 heard, no gallop, no rub. distant sounds. Abdomen- Soft nontender abdomen, no organomegaly, no tenderness, no guarding or rigidity, [employer]- AOOx0, gen anasarca noted.very low alb Medical - PN: Obj Da - Labs CBC & Chem 7: 06/19/17 04:00 06/19/17 04:00 Labs: Abnormal Lab Results 06/19/17 06/19/17 06/19/17 04:00 04:00 04:00 WBC 16.3 H RBC 3.56 L Hgb 9.4 L Hct 29.0 L RDW 17.7 H Seg Neutrophils % 90 H Band Neutrophils % Lymphocytes % 2 L RBC Morphology Abnorm A Anisocytosis 2+ A Ovalocytes RBC Fragments PT INR Potassium Creatinine 0.5 L Glucose 147 H Uric Acid 1.2 L Calcium 7.2 L Phosphorus 2.3 L GGT NT-Pro-B Natriuret Pep Total Protein 3.9 L Albumin 1.6 L Albumin/Globulin Ratio 0.7 L Prealbumin 5.4 L 06/18/17 06/18/17 06/18/17 04:00 04:00 04:00 WBC RBC Hgb Hct RDW Seg Neutrophils % Band Neutrophils % Lymphocytes % RBC Morphology Anisocytosis Ovalocytes RBC Fragments PT INR Potassium Creatinine 0.4 L Glucose 165 H Uric Acid 1.0 L Calcium 7.3 L Phosphorus 2.2 L GGT NT-Pro-B Natriuret Pep 5763.0 H Total Protein 3.9 L Albumin 1.6 L Albumin/Globulin Ratio 0.7 L Prealbumin 3.7 L 06/18/17 06/17/17 06/17/17 04:00 08:37 04:00 WBC 16.0 H RBC 3.70 L Hgb 9.8 L Hct 30.2 L RDW 17.2 H Seg Neutrophils % Band Neutrophils % 16 H Lymphocytes % 3 L RBC Morphology Anisocytosis 1+ A Ovalocytes 1+ A RBC Fragments Few A PT 16.1 H INR 1.3 H Potassium Creatinine Glucose Uric Acid Calcium Phosphorus GGT NT-Pro-B Natriuret Pep 3634.0 H Total Protein Albumin Albumin/Globulin Ratio Prealbumin 06/17/17 06/17/17 04:00 04:00 WBC 13.0 H RBC 3.68 L Hgb 9.8 L Hct 30.0 L RDW 16.8 H Seg Neutrophils % 81 H Band Neutrophils % Lymphocytes % 4 L RBC Morphology Abnorm A Anisocytosis 1+ A Ovalocytes RBC Fragments PT INR Potassium 2.8 L* Creatinine 0.5 L Glucose 156 H Uric Acid 1.2 L Calcium 7.2 L Phosphorus 1.5 L GGT 38 H NT-Pro-B Natriuret Pep Total Protein 3.9 L Albumin 1.7 L Albumin/Globulin Ratio 0.8 L Prealbumin Meds: Medications Acetaminophen (Tylenol) 650 mg PO Q6HP PRN PRN Reason: PAIN/FEVER > 101 Albuterol/Ipratropium (Duoneb) 3 ml NEB Q4HRT [facility] Artificial Tears (Artificial Tears Ophth Drops) 1 gtt OD QIDP PRN PRN Reason: Dry Eye(s) Chlorhexidine Gluconate (Peridex) 15 ml SWABMOUTH BID [facility] Last Admin: 06/18/17 21:10 Dose: 15 ml Dextrose (Dextrose 50%) 25 ml IV UD PRN PRN Reason: Hypoglycemia Diagnostic Test (Pha) (Accu-Chek) 1 each FS Q6 [facility] Last Admin: 06/19/17 05:11 Dose: 1 each Furosemide (Lasix) 40 mg IV Q12 [facility] Stop: 06/19/17 21:01 Last Admin: 06/19/17 09:06 Dose: 40 mg Hydromorphone HCl (Dilaudid) 0.5 mg IV Q1HP PRN PRN Reason: Pain Last Admin: 06/18/17 08:27 Dose: 0.5 mg Calcium Gluconate 5 meq/Magnesium Sulfate 8.12 meq/Sodium Chloride 40 meq/ Potassium Phosphate 40 meq/Multivitamins/Minerals 10 ml/Selenium 60 mcg/ Potassium Chloride 20 meq/ Amino Acids 1,053.3435 mls @ 45 mls/hr IV Q24H [facility] Stop: 06/19/17 15:59 Last Admin: 06/18/17 16:00 Dose: 45 mls/hr Fat Emulsion Intravenous 250 (ml/ Premix) 250 mls @ 25 mls/hr IV [id number] [facility] Last Admin: 06/17/17 16:33 Dose: 25 mls/hr Metronidazole (Flagyl) 500 mg in 100 mls @ 100 mls/hr IV Q6H [facility] Last Infusion: 06/19/17 06:30 Dose: Infused Norepinephrine Bitartrate 16 (mg/ Sodium Chloride) 250 mls @ 9.37 mls/hr IV Q24H [facility]; 10 MCG/MIN PRN Reason: Protocol Last Admin: 06/19/17 08:50 Dose: Not Given Sodium Chloride (Sodium Chloride 0.9%) 250 mls @ 20 mls/hr IV .[id number] [facility] Last Admin: 06/19/17 04:28 Dose: 20 mls/hr Acetaminophen (Ofirmev) 1,000 mg in 100 mls @ 200 mls/hr IV Q6HP PRN PRN Reason: PAIN/FEVER > 101 Piperacillin Sod/Tazobactam (Sod 3.375 gm/ Dextrose) 50 mls @ 100 mls/hr IV Q6H [facility] Last Infusion: 06/19/17 07:44 Dose: Infused Propofol 1,000 mg/ Premix 100 mls @ 2.42 mls/hr IV .Q24H PRN; Protocol; 5 MCG/ KG/MIN PRN Reason: ANXIETY/SEDATION Last Titration: 06/19/17 08:10 Dose: 15 mcg/kg/min, 7.28 mls/hr Fentanyl 2,500 mcg/ Sodium (Chloride) 250 mls @ 5.83 mls/hr IV Q24H [facility]; 0.7 MCG/KG/HR PRN Reason: Protocol Last Titration: 06/19/17 08:00 Dose: 0.4 mcg/kg/hr, 3.33 mls/hr Vancomycin HCl 1,500 mg/ (Sodium Chloride) 500 mls @ 333.3 mls/hr IV Q24H [facility] Last Admin: 06/19/17 09:37 Dose: 333.3 mls/hr Calcium Gluconate 5 meq/Magnesium Sulfate 16.24 meq/Sodium Chloride 40 meq/ Potassium Phosphate 60 meq/Multivitamins/Minerals 10 ml/Selenium 60 mcg/ Potassium Chloride 20 meq/ Amino Acids 1,059.889 mls @ 45 mls/hr IV Q24H [facility] Potassium Chloride 40 meq/ (Dextrose) 270 mls @ 67.5 mls/hr IV ONCE ONE Stop: 06/19/17 12:59 Last Admin: 06/19/17 09:38 Dose: 67.5 mls/hr Midazolam HCl (Versed) 1 mg IV Q30MIN PRN PRN Reason: Sedation Ondansetron HCl (Zofran) 4 mg IV Q6HP PRN PRN Reason: Nausea And Vomiting Pantoprazole Sodium (Protonix) 40 mg IV BIDAC [facility] Last Admin: 06/19/17 07:13 Dose: 40 mg Sodium Chloride (Saline Flush) 10 ml IV UD PRN PRN Reason: medication Sodium Chloride (Saline Flush) 10 ml IV Q8 [facility] Last Admin: 06/19/17 05:06 Dose: Not Given Vancomycin HCl (Vancomycin Per Pharmacy) 1 order IV [facility] [place] Medical - PN: A/P - Time Spent With Patient Total time spent is greater than 50% in coordination of care (as documented) at patient's floor/unit and/or counseling patient: - Narrative A/P Narrative: 77-year-old female without GI illness (though in retrospect has had diverticulitis in past) presents with abdominal pain, nausea and vomiting. Also has urinary tract infection. Evolution of distal colonic obstruction, subsequently went to the operating room on 06/14, resection of sigmoid mass, a contained perforation of transverse colon and spontaneous rupture of right colon intraoperatively. Acute diverticulitis. . Postop day #5, status post exploratory laparotomy, hemicolectomy with ileostomy , Clark's procedure with mucous fistula. Now Post-op day #2 from re-look and delayed closure. Plan: Per surgery, continue Zosyn and metronidazole, add basal fentanyl for postoperative analgesia. HCAP PNA: On zosyn for GI, Vanco added yesterday, monitor. Acute respiratory failure : Sedated and ventilated. Plat < 30 at this time, patient on [facility] duonebs, at baseline oxygen and fio2 needs. IV lasix bid today to help remove excess fluid to help with weaning process. H/0 Asthma: margi duonebs q4hrs. Malnutrition Alb 1.7, on TPN, dietary following, increased rate today. Hypokalemia : K 3.5 replaced Hypomagenesemia MG 1.6 replaced Anemia: likely related to underlying infection, monitor for now, hb stable. CODE STATUS, discussed with the patient at admission, is DNR Prophylaxis: Protonix, SCD's Procedures - Arterial Line Size (Gauge): 20
[2017-06-19] MEDS: IPRATROPIUM/ALBUTEROL 3 ML AMPUL.NEB NEB SCH ×4 (11:02→19:30)
[2017-06-19] MEDS: PROPOFOL 1,000 MG in PREMIX 1 BAG IV PRN ×2 (13:00→22:30)
[2017-06-19] MEDS ORDERED: MAGNESIUM SULFATE IV SCH (16:00)
[2017-06-19] MEDS ORDERED: SODIUM CHLORIDE IV SCH (16:00)
[2017-06-19] MEDS ORDERED: [UNRECOGNIZED DRUG - OTHER] IV SCH (16:00)
[2017-06-19] MEDS ORDERED: CALCIUM GLUCONATE IV SCH (16:00)
[2017-06-19] MEDS: FAT EMULSION 20% 250 ML in PREMIX 1 BAG IV SCH (16:03)
--- NOTE | 2017-06-19 16:18 | General Surgery Progress Note ---
Subjective Patient reports: bowel movement, afebrile Narrative: Note initiated : 06/19/17 at 4:15 pm Service Date, if different from initiated Date: [] Patient: Caroline Bellamy 77 y/o F admitted on 06/12/17 for N/V, UTI, Constipation/Colon Obstruction, UTI. Chief Complaint: [patient remains sedated and ventilated. She had a short medication withdrawal with breathing trial earlier this morning but failed. Her chest x-ray looks about the same. The drainage from her multiple drains is also serous and is decreasing in volume. Vital signs have been stable off pressors.] Objective Temp Pulse Resp BP Pulse Ox 98.5 F 92 H 22 101/63 96 06/19/17 12:01 06/19/17 16:01 06/19/17 16:01 06/19/17 15:01 06/19/17 15:01 - Additional Data Intake & Output - Last 24 hours: Intake & Output 06/17/17 06/18/17 06/19/17 06/20/17 05:59 05:59 05:59 05:59 Intake Total 3828 / 3828 948 / 948 3523.4344 / 3523.4344 876 / 876 Output Total 3834 / 3834 5 / 5 4250 / 4250 3650 / 3650 Balance -6 / -6 -1107 / -1107 -726.5656 / -726.5656 -2774 / -2774 Weight 179 lb 183 lb 14.4 oz 186 lb 3.2 oz 186 lb 3.2 oz - General physical appearance no pain - Eyes other (sedated and ventilated) - Respiratory other (good aeration of both lungs except dependent portions posterolaterally) - Cardiovascular Cardiovascular exam: Present: normal rate and rhythm, JVD, RRR, +S1, +S2 - Abdomen bowel sounds (early return of bowel sounds with functioning ileostomy. Surgical incision and stomas are unremarkable) - Integumentary no rash, no growths, no abnormal pigmentation, other (Major anasarca from hypoalbuminemia) - Neurologic other (sedated) - Labs 06/19/17 04:00 06/19/17 04:00 Diabetes panel 06/19/17 Range/Units 04:00 Sodium 139 (133-145) mmol/L Potassium 3.5 (3.3-5.1) mmol/L Chloride 103 (96-108) mmol/L Carbon Dioxide 24 (22-30) mmol/L BUN 15 (8-23) mg/dl Creatinine 0.5 L (0.6-1.1) mg/dl Glucose 147 H (70-105) mg/dL Calcium 7.2 L (8.6-10.4) mg/dl AST 12 (0-37) U/l ALT 11 (0-40) U/l Alkaline Phosphatase 48 (39-117) U/L Total Protein 3.9 L (5.9-8.4) gm/dL Albumin 1.6 L (3.2-5.2) gm/dL Triglycerides 55 (<150) mg/dl Calcium panel 06/19/17 Range/Units 04:00 Calcium 7.2 L (8.6-10.4) mg/dl Phosphorus 2.3 L (2.7-4.5) mg/dL Albumin 1.6 L (3.2-5.2) gm/dL Pituitary panel 06/19/17 Range/Units 04:00 Sodium 139 (133-145) mmol/L Potassium 3.5 (3.3-5.1) mmol/L Chloride 103 (96-108) mmol/L Carbon Dioxide 24 (22-30) mmol/L BUN 15 (8-23) mg/dl Creatinine 0.5 L (0.6-1.1) mg/dl Glucose 147 H (70-105) mg/dL Calcium 7.2 L (8.6-10.4) mg/dl Adrenal panel 06/19/17 Range/Units 04:00 Sodium 139 (133-145) mmol/L Potassium 3.5 (3.3-5.1) mmol/L Chloride 103 (96-108) mmol/L Carbon Dioxide 24 (22-30) mmol/L BUN 15 (8-23) mg/dl Creatinine 0.5 L (0.6-1.1) mg/dl Glucose 147 H (70-105) mg/dL Calcium 7.2 L (8.6-10.4) mg/dl Total Bilirubin 0.3 (0.0-1.0) mg/dL AST 12 (0-37) U/l ALT 11 (0-40) U/l Alkaline Phosphatase 48 (39-117) U/L Total Protein 3.9 L (5.9-8.4) gm/dL Albumin 1.6 L (3.2-5.2) gm/dL Assessment and Plan (1) Colon obstruction Problem details: Mass in sigmoid, resected 06/14/2017-diverticulitis Status: Acute Assessment and plan: patient is doing well and should be stable for extubation in 1-2 days Current Visit: Yes (2) Anemia Status: Acute Assessment and plan: she has stable hgb over the past 24 hr Current Visit: Yes (3) UTI due to Klebsiella species Status: Acute Current Visit: Yes - Time Spent With Patient Total time spent is greater than 50% in coordination of care (as documented) at patient's floor/unit and/or counseling patient:
[2017-06-19] MEDS: fentaNYL 2,500 MCG in 0.9 % SODIUM CHLORIDE 200 ML IV SCH (17:24)
--- NOTE | 2017-06-19 19:04 | XRay Report ---
CLINICAL INFORMATION: tachypena COMPARISON: 06/19/2017 0641 hours. FINDINGS: Mild cardiomegaly is unchanged. Mediastinum and pulmonary vessels are normal. Lines and tubes in stable satisfactory position. Moderate bibasilar infiltrate/atelectasis has worsened slightly since film earlier this morning. Moderate right and small left pleural effusions show slight increase IMPRESSION: Moderate right basilar infiltrate/atelectasis moderate right and small left pleural effusion worsening from film earlier today consider aspiration or infection Interpreted and Authenticated by: Valentin Torres 06/19/17
[2017-06-20] MEDS: metroNIDAZOLE 500 MG/100 ML BAG IV SCH ×5 (00:42→23:27)
[2017-06-20] MEDS: PIPERACILLIN SODIUM/TAZOBACTAM 3.375 GM in DEXTROSE 5% IN WATER 50 ML IV SCH ×2 (00:42→05:19)
[2017-06-20] MEDS: IPRATROPIUM/ALBUTEROL 3 ML AMPUL.NEB NEB SCH ×7 (00:43→23:40)
[2017-06-20] MEDS: 0.9 % SODIUM CHLORIDE 250 ML IV SCH ×2 (05:17→23:32)
[2017-06-20] MEDS: 0.9 % SODIUM CHLORIDE 10 ML SYRINGE IV SCH ×4 (05:20→21:09)
[2017-06-20] MEDS: POLYVINYL ALCOHOL OPHTH DROPS 15ML BOTTLE OD PRN ×2 (07:00→13:10)
[2017-06-20] MEDS ORDERED: FUROSEMIDE 40 MG/4 ML VIAL IV ONE ×2 (08:26→18:00)
[2017-06-20] MEDS: PANTOPRAZOLE 40 MG VIAL IV SCH ×2 (08:30→16:33)
--- NOTE | 2017-06-20 09:15 | XRay Report ---
CLINICAL INFORMATION: Dyspnea on mechanical ventilation COMPARISON: 06/19/2017. FINDINGS: Moderate cardiomegaly is unchanged. Mediastinum is unremarkable. Pulmonary vessels appear mildly distended. Lines and tubes in stable satisfactory position. Bilateral infiltrates have increased considerably since yesterday: there is now diffuse involvement of both lungs with only biapical sparing. Moderate bilateral pleural effusions have increased slightly IMPRESSION: Diffuse bilateral infiltrates worsening considerably since yesterday. Consider ARDS, aspiration, infection and cardiogenic edema Interpreted and Authenticated by: Valentin Torres 06/20/17
[2017-06-20] MEDS: CHLORHEXIDINE GLUCONATE 1 ML ORAL.SOL SWABMOUTH SCH ×2 (09:35→21:08)
[2017-06-20] MEDS: NOREPINEPHRINE BITARTRATE 16 MG in 0.9 % SODIUM CHLORIDE 234 ML IV SCH (09:36)
[2017-06-20 09:45] LABS: Mean Cell Volume 81.2 fL (80.0-100.0); Mean Corpuscular HGB Conc 32.4 g/dL (31.0-36.0); Mean Corpuscular Hemoglobin 26.3 pg (26.0-34.0); Platelet Count 363 K/mcL (140-440); RBC 3.74 M/mcL (4.00-5.20); Red Cell Distribution Width 17.8 % (11.5-14.5)
[2017-06-20 09:46] LABS: ALT/SGPT 11 U/l (0-40); Albumin 1.6 gm/dL (3.2-5.2); Albumin/Globulin Ratio 0.6 (1.0-2.3); Alkaline Phosphatase 53 U/L (39-117); Blood Urea Nitrogen 18 mg/dl (8-23); Prealbumin 9.9 mg/dl (20-40)
[2017-06-20 09:47] LABS: Anisocytosis 1+ (NONE SEEN); Band Neutrophils % 5 % (0-10); Eosinophils % (Manual) 2 % (0-7); Lymphocytes % 3 % (15-49); Monocytes % (Manual) 11 % (1-12); Platelet Estimate NORMAL (NORMAL); RBC Morphology ABNORM (NORMAL); Segmented Neutrophils % 79 % (38-78)
[2017-06-20] MEDS ORDERED: IMIPENEM/CILASTATIN SODIUM 500 MG in 0.9 % SODIUM CHLORIDE 100 ML IV SCH (10:00)
[2017-06-20] MEDS ORDERED: IMIPENEM/CILASTATIN SODIUM 1,000 MG in 0.9 % SODIUM CHLORIDE 250 ML IV SCH (10:00)
[2017-06-20 10:01] LABS: Bilirubin,Direct < 0.2 mg/dL (0.0-0.3); Gamma Glutamyl Transpeptidase 51 U/L (5-36); Uric Acid 1.4 mg/dL (2.5-8.0)
[2017-06-20] MEDS: VANCOMYCIN 1,500 MG in 0.9 % SODIUM CHLORIDE 500 ML IV SCH (10:59)
[2017-06-20] MEDS: PIPERACILLIN SODIUM/TAZOBACTAM 3.375 GM in 0.9 % SODIUM CHLORIDE 50 ML IV SCH ×2 (12:21→17:25)
[2017-06-20] MEDS: PROPOFOL 1,000 MG in PREMIX 1 BAG IV PRN (12:54)
[2017-06-20] MEDS: SODIUM CHLORIDE IV SCH (13:23)
[2017-06-20] MEDS: CALCIUM GLUCONATE IV SCH (13:23)
[2017-06-20] MEDS: MAGNESIUM SULFATE IV SCH (13:23)
[2017-06-20] MEDS: [UNRECOGNIZED DRUG - OTHER] IV SCH (13:23)
--- NOTE | 2017-06-20 13:38 | Internal Med Progress Note ---
Medical - PN: Subj Patient information: Note initiated : 06/20/17 at 1:33 pm Service Date, if different from initiated Date: [] Patient: Caroline Bellamy a 77 y/o F admitted on 06/12/17 for N/V, UTI, Constipation/Colon Obstruction, UTI. Chief Complaint: [] Interval history: June 12 Ms. Adiel Cardoso is a 77 year old F who presents to the ED with ongoing complaints of abdominal pain. Patient awoke last Thursday with abdominal pain. She was also nauseated. She was seen in the emergency department due to ongoing symptoms on Thursday, 06/08. CT scan at that time showed some colonic thickening and wall edema without significant inflammatory changes. There was also diverticulosis. She had evidence of urinary tract infection and was started on Septra. Patient remained nauseated and was unable to take the Septra. She continued to have significant abdominal pain, up to 06/09. On the day following her ED visit , she was nauseated and was unable to keep anything down. She presented back to the emergency department, had Bactrim stopped and was changed over to ciprofloxacin. Neither the patient nor her family were aware that a new prescription of been generated and it was never picked up. On Thursday and she continued to have vomiting which was without blood. She continued to have significant abdominal pain up to "08/09". She presents back to the emergency department today because of ongoing abdominal pain, nausea and vomiting. With the onset of the pain a week ago, the pain was severe and was in the left lower quadrant, changing over to the right lower quadrant and becoming generalized as last week has progressed. She describes the quality of the pain is constant and aching with intermittent bouts of stabbing pain. Associated with nausea, vomiting without hematemesis. She has hydrocodone prescription for chronic back pain, that has helped her pain somewhat, though she has had some difficulty keeping medications down. She tried an oral Zofran, was able to keep one done yesterday, but not today. June 13 She is still complaining of significant abdominal pain, more so on the right side from the right upper and right lower quadrant. Tolerating clears, nausea has improved, no ecchymosis. She did have one small hard bowel movement, then to softer ones. She did receive bisacodyl rectally, also oral milk of magnesia and senna last evening. No fever, no chills. No significant dyspnea, has used 1 as needed nebulizer therapy. CT of the abdomen and pelvis was obtained due to ongoing pain. Spoke with radiology, films reviewed, she has dilated colon, ascending, transverse, descending with a transition point in the sigmoid where it decompresses. No pericolonic inflammatory changes, no mural thickening. Patient currently undergoing delayed images to see if there is passage of contrast. June 14 Still complaining of abdominal pain. Had some desaturation overnight, on oxygen. Received dose of furosemide earlier today. Still requiring regular Dilaudid today, though when I see her this morning the interval between when necessary doses has increased somewhat. Final results of CTAP yesterday without passage of contrast. I discussed the case with Dr. Eubanks last evening, he is seeing the patient today , plans to take to the operating room. Her white count was increased to 22,000 today. Ceftriaxone changed to Zosyn this morning. June 15 Patient currently in the intensive care unit following surgery yesterday. Had inflammatory mass causing sigmoid obstruction. Subsequently had rupture of right colon intraoperatively, necessitating colectomy and washout. 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 Wound is being packed open. Overnight patient received fluid resuscitation of 6 L NS, did achieve adequate CVP, still required norepinephrine. Today receiving packed red blood cells, still on norepinephrine, though that has been titrated down a bit. Remains sedated with propofol on ventilator. Plan to go back to the OR Thursday for washout and possible closure. June 16 Patient remained stable, ventilated and sedated. Remains on some Levophed for blood pressure support. Diuresed well with 40 mg of furosemide yesterday. Still with significant thigh and arm edema. Right pleural effusion on radiograph today, though infiltrates/atelectasis improves. Arterial line started to dampen and not function overnight, was removed. June 17 Patient now postop after planned second look exploratory laparotomy. No evidence of intra-abdominal abscess, final closure performed. Some increased airway pressures postoperatively, had been bagged on the way back to the ICU, which may explain some of her airway pressures and an increase in FiO2, seemed to be improving as the afternoon progresses. Nonpitting edema, urine output is adequate but not brisk, on 100 mils an hour fluid. Still on TPN. Still requiring some NE for BP support. June 18 Norepinephrine weaned off overnight. Remains significantly volume long. During wake up trial this morning, became tachypnea can airway pressures went up , did withdrawal from lower extremity stimuli, but did not open eyes to voice or respond upper extremity stimulus. Had to be re-sedated before this could happen due to her status. Chest x-ray showing some worsening congestion. Between TPN, drips and IV fluids containing almost 200 mL an hour. Will DC maintenance fluids, continuous TPN and drips, give furosemide today. We'll also add fentanyl infusion for baseline pain control in the postoperative state. Also on propofol for sedation. June 19: Patient seen examined, off pressors [facility]. labs reviewed , worsening leucocytosis today at 16.3, CXR shows patient has bibasilar infiltrates. The patient was weaned off sedation this AM she opened eyes but did not follow commands, She became tachypenic and tachycardic, on wean trial. Pt TV was increased overnight by RT, changed back to 360 this AM repeat ABG to be done in 30 mins. Vancomycin was added yesterday in light of pulmonary infiltrates, Vent parameters AC mode, TV 360 (was 420 in AM), RR 16, Fio2 40, PEEP 5. Peak pressure 26-28, Plat 19-23, I/0 Pt was negative 1225 yesterday. sedation: propofol and fentanyl Diet TPN Riggs in place Right SC in place for central venous access June 20 Patient seen exmined, sedated on vent, Sedation was held this AM, and patient mental status improved, she was better than yesterday, did follow some commands. Placed on pressure support of 7, but became tachycardic and tachypenic after sometime. placed back on AC mode Her wbc is creeping up, we tried to change antibiotics from zosyn to carbapenum , but we are in short supply at this time. Xray done this AM shows significant worsening in her infiltrtes, chf vs ards Vent parameters AC mode TV 360, RR 12 (set), PEEP 5, Fio2 40, Plat 18-24, Peak 25-28 ABG 7.42/45/83 Lact 0.5 Patient responding well to diuresis, was neg 3L yesterday. Pertinent ROS: unable Additional PMFSH (Level 3 Only): Medical History Spasm of paraspinal muscle (Acute) Muscle spasm of back (Acute) Thoracic back pain (Acute) Abdominal pain (Acute) Dilated bile duct (Acute) Pulmonary fibrosis (Acute) Side effects of treatment (Acute) Nausea & vomiting (Acute) UTI due to Klebsiella species (Acute) Colitis (Acute) Colon obstruction (Acute) Anemia (Acute) Perforation bowel (Acute) - Constitutional Vitals: Vital Signs Temp Pulse Resp BP Pulse Ox 99.2 F H 93 H 14 98/69 96 06/20/17 12:01 06/20/17 13:01 06/20/17 11:36 06/20/17 13:01 06/20/17 13:01 Period Temp Pulse Resp BP Sys/[place] Pulse Ox Last 24 Hr 97.2 F-99.2 F 85-110 14-28 88-153/49-95 90-98 Intake and Output 06/19/17 06/20/17 06/20/17 21:59 05:59 13:59 Intake Total 1227.3435 / 1227.3435 786 / 786 1999.889 / 1999.889 Output Total 610 / 610 2435 / 2435 1255 / 1255 Balance 617.3435 / 617.3435 -1649 / -1649 745.889 / 745.889 Weight 174 lb 11.2 oz Intake & Output: Intake & Output 06/19/17 06/20/17 06/20/17 21:59 05:59 13:59 Intake Total 1227.3435 / 1227.3435 786 / 786 / 1999.889 Output Total 610 / 610 2435 / 2435 1255 / 1255 Balance 617.3435 / 617.3435 -1649 / -1649 745.889 / 745.889 Weight 174 lb 11.2 oz Intake: IV 1227.3435 / 1227.3435 786 / 786 / 1999.9 Sodium Chloride 0.9% 250 ml @ 250 / 250 20 mls/hr IV .[id number] [facility] Rx#: [id number] Calcium Gluconate 5 Meq 1059.889 / 1059.889 Magnesium Sulfate 16.24 Meq Sodium Chloride 40 Meq Potassium Phosphate 60 Meq Infuvite Adult 10 ml Selenium 60 Mcg Potassium Chloride 20 Meq In Clinimix 5%-20% Solution 1,000 ml @ 50 mls/hr IV Q21H [facility] Rx#:[id number] Intralipid 20% 250 ml In Premix 250 / 250 1 Bag @ 25 mls/hr IV MoWeFr@ 1600 [facility] Rx#:[id number] Zosyn 3.375 gm In Dextrose 5% 50 / 50 50 / 50 50 / 50 in Water 50 ml @ 100 mls/hr IV Q6H [facility] Rx#:[id number] Diprivan 1,000 mg In Premix 1 92 / 92 100 / 100 Bag @ 5 MCG/KG/MIN 2.42 mls/hr IV .Q24H [facility] Rx#:[id number] Vancomycin 1,500 mg In Sodium 500 / 500 Chloride 0.9% 500 ml @ 333.3 mls/hr IV Q24H [facility] Rx#: [id number] fentaNYL 2,500 MCG In Sodium 24 / 24 44 / 44 91 / 91 Chloride 0.9% 200 ml @ 0.7 MCG/ KG/HR 5.83 mls/hr IV Q24H [facility] Rx#:[id number] Output: Gastric Drainage 150 / 150 50 / 50 50 / 50 NG/OG 100 / 100 50 / 50 Right Upper Quadrant 50 / 50 50 / 50 Drainage 325 / 325 50 / 50 RIDDHI 'A' RIDDHI 'B' RIDDHI 'C' RIDDHI 'D' RIDDHI 'E' RIDDHI 'F' 25 Urine Catheter Amount 460 / 460 2060 / 2060 1155 / 1155 Exam: Constitutional; Afebrile,sedated and in vent. Eyes- No icterus, , No periorbital swelling Ears- Ext ear normal, Neck- Midline trachea, supple ET tube in place Respiratory system: Air entry dimisihed on right base, justin conducted breath sounds. mech ventilated pt, no wheeze. CVS- Rate rhythm regular, S1,S2 heard, no gallop, no rub. Abdomen- Soft, bs present, drains present [employer]- AOOx0, moving all extremities, no gross focal deficit noted. Medical - PN: Obj Da - Labs CBC & Chem 7: 06/20/17 04:00 06/20/17 04:00 Labs: Abnormal Lab Results 06/20/17 06/20/17 06/19/17 04:00 04:00 04:00 WBC 17.0 H RBC 3.74 L Hgb 9.8 L Hct 30.3 L RDW 17.8 H Seg Neutrophils % 79 H Band Neutrophils % Lymphocytes % 3 L RBC Morphology Abnorm A Anisocytosis 1+ A Ovalocytes RBC Fragments Creatinine 0.5 L Glucose 126 H Uric Acid 1.4 L Calcium 7.4 L Phosphorus GGT 51 H Lactate Dehydrogenase 258 H NT-Pro-B Natriuret Pep Total Protein 4.3 L Albumin 1.6 L Albumin/Globulin Ratio 0.6 L Prealbumin 9.9 L 5.4 L 06/19/17 06/19/17 06/18/17 04:00 04:00 04:00 WBC 16.3 H RBC 3.56 L Hgb 9.4 L Hct 29.0 L RDW 17.7 H Seg Neutrophils % 90 H Band Neutrophils % Lymphocytes % 2 L RBC Morphology Abnorm A Anisocytosis 2+ A Ovalocytes RBC Fragments Creatinine 0.5 L Glucose 147 H Uric Acid 1.2 L Calcium 7.2 L Phosphorus 2.3 L GGT Lactate Dehydrogenase NT-Pro-B Natriuret Pep 5763.0 H Total Protein 3.9 L Albumin 1.6 L Albumin/Globulin Ratio 0.7 L Prealbumin 06/18/17 06/18/17 06/18/17 04:00 04:00 04:00 WBC 16.0 H RBC 3.70 L Hgb 9.8 L Hct 30.2 L RDW 17.2 H Seg Neutrophils % Band Neutrophils % 16 H Lymphocytes % 3 L RBC Morphology Anisocytosis 1+ A Ovalocytes 1+ A RBC Fragments Few A Creatinine 0.4 L Glucose 165 H Uric Acid 1.0 L Calcium 7.3 L Phosphorus 2.2 L GGT Lactate Dehydrogenase NT-Pro-B Natriuret Pep Total Protein 3.9 L Albumin 1.6 L Albumin/Globulin Ratio 0.7 L Prealbumin 3.7 L Meds: Medications Acetaminophen (Tylenol) 650 mg PO Q6HP PRN PRN Reason: PAIN/FEVER > 101 Albuterol/Ipratropium (Duoneb) 3 ml NEB Q4HRT [facility] Last Admin: 06/20/17 11:24 Dose: 3 ml Artificial Tears (Artificial Tears Ophth Drops) 1 gtt OD QIDP PRN PRN Reason: Dry Eye(s) Chlorhexidine Gluconate (Peridex) 15 ml SWABMOUTH BID [facility] Last Admin: 06/20/17 09:35 Dose: 15 ml Dextrose (Dextrose 50%) 25 ml IV UD PRN PRN Reason: Hypoglycemia Diagnostic Test (Pha) (Accu-Chek) 1 each FS Q6 [facility] Last Admin: 06/20/17 05:19 Dose: 1 each Hydromorphone HCl (Dilaudid) 0.5 mg IV Q1HP PRN PRN Reason: Pain Last Admin: 06/18/17 08:27 Dose: 0.5 mg Fat Emulsion Intravenous 250 (ml/ Premix) 250 mls @ 25 mls/hr IV MoWeFr@1600 [facility] Last Infusion: 06/20/17 03:24 Dose: Infused Metronidazole (Flagyl) 500 mg in 100 mls @ 100 mls/hr IV Q6H [facility] Last Infusion: 06/20/17 12:00 Dose: Infused Norepinephrine Bitartrate 16 (mg/ Sodium Chloride) 250 mls @ 9.37 mls/hr IV Q24H [facility]; 10 MCG/MIN PRN Reason: Protocol Last Admin: 06/20/17 09:36 Dose: Not Given Sodium Chloride (Sodium Chloride 0.9%) 250 mls @ 20 mls/hr IV .[id number] [facility] Last Admin: 06/20/17 05:17 Dose: Not Given Acetaminophen (Ofirmev) 1,000 mg in 100 mls @ 200 mls/hr IV Q6HP PRN PRN Reason: PAIN/FEVER > 101 Propofol 1,000 mg/ Premix 100 mls @ 2.42 mls/hr IV .Q24H PRN; Protocol; 5 MCG/ KG/MIN PRN Reason: ANXIETY/SEDATION Last Admin: 06/20/17 12:54 Dose: 15 mcg/kg/min, 7.28 mls/hr Fentanyl 2,500 mcg/ Sodium (Chloride) 250 mls @ 5.83 mls/hr IV Q24H [facility]; 0.7 MCG/KG/HR PRN Reason: Protocol Last Titration: 06/20/17 09:00 Dose: 1 mcg/kg/hr, 8.34 mls/hr Vancomycin HCl 1,500 mg/ (Sodium Chloride) 500 mls @ 333.3 mls/hr IV Q24H [facility] Last Infusion: 06/20/17 13:06 Dose: Infused Calcium Gluconate 5 meq/Magnesium Sulfate 16.24 meq/Sodium Chloride 40 meq/ Potassium Phosphate 40 meq/Multivitamins/Minerals 10 ml/Selenium 60 mcg/ Potassium Chloride 20 meq/ Amino Acids 1,055.3435 mls @ 50 mls/hr IV Q21H [facility] Piperacillin Sod/Tazobactam (Sod 3.375 gm/ Sodium Chloride) 50 mls @ 100 mls/ hr IV Q6H [facility] Last Admin: 06/20/17 12:21 Dose: 100 mls/hr Midazolam HCl (Versed) 1 mg IV Q30MIN PRN PRN Reason: Sedation Ondansetron HCl (Zofran) 4 mg IV Q6HP PRN PRN Reason: Nausea And Vomiting Pantoprazole Sodium (Protonix) 40 mg IV BIDAC [facility] Last Admin: 06/20/17 08:30 Dose: 40 mg Sodium Chloride (Saline Flush) 10 ml IV UD PRN PRN Reason: medication Sodium Chloride (Saline Flush) 10 ml IV Q8 [facility] Last Admin: 06/20/17 05:20 Dose: 10 ml Vancomycin HCl (Vancomycin Per Pharmacy) 1 order IV [facility] [place] Medical - PN: A/P - Time Spent With Patient Total time spent is greater than 50% in coordination of care (as documented) at patient's floor/unit and/or counseling patient: - Narrative A/P Narrative: 77-year-old female without GI illness (though in retrospect has had diverticulitis in past) presents with abdominal pain, nausea and vomiting. Also has urinary tract infection. Evolution of distal colonic obstruction, subsequently went to the operating room on 06/14, resection of sigmoid mass, a contained perforation of transverse colon and spontaneous rupture of right colon intraoperatively. Acute diverticulitis. . Postop day # 6 , status post exploratory laparotomy, hemicolectomy with ileostomy, Clark's procedure with mucous fistula. Now Post-op day #3 from re- look and delayed closure. Plan: Per surgery, continue Zosyn and metronidazole, add basal fentanyl for postoperative analgesia. Try to see if we can obtain carbapenum imipenum or meropenum. Repeat set of blood cultures HCAP PNA: On zosyn for GI, Vanco added yesterday, monitor. infiltrates worsening on X ray. Acute respiratory failure : ARDS vs CHF Vs PNA Sedated and ventilated. Plat < 30 at this time, patient on [facility] duonebs, at baseline oxygen and fio2 needs. IV lasix once today to help remove excess fluid to help with weaning process. Asthma: on duonebs q4hrs Malnutrition Alb 1.7, on TPN, dietary following, prealbumin improved today. Hypokalemia : K 4.3 today Hypomagenesemia improved to 2.0 Anemia: likely related to underlying infection, monitor for now, hb stable. CODE STATUS, discussed with the patient at admission, is DNR Prophylaxis: Protonix, SCD's Critical care time spent > 50 mins in monitoring abg, x ray, antibiotics, nutrion, mnagement of vent etc. Procedures - Arterial Line Size (Gauge): 20
[2017-06-20] MEDS: fentaNYL 2,500 MCG in 0.9 % SODIUM CHLORIDE 200 ML IV SCH (14:52)
--- NOTE | 2017-06-20 15:37 | General Surgery Progress Note ---
Subjective Narrative: Note initiated : 06/20/17 at 3:33 pm Service Date, if different from initiated Date: [] Patient: Caroline Bellamy a 77 y/o F admitted on 06/12/17 for N/V, UTI, Constipation/Colon Obstruction, UTI. Chief Complaint: [Patient is relatively stable. She has had a low-grade temperature and her white blood count is still elevated however there is no evidence of sepsis. Her major difficulty is interstitial edema probably as a manifestation of hypoproteinemia with anasarca and reduce intravascular oncotic pressure. Discussed with Dr. Collins the possibility of increase in albumin infusion combined with Lasix infusion as long as her BUN and creatinine are stable. This will hopefully increase intravascular volume and therefore increase renal perfusion as well as improve diuresis. Low-dose dopamine in the past has been effective in this situation but I will reserve that for later. There is no evidence that she has any intra-abdominal sepsis. All of her critical peritoneal areas are drained and the drainage is serous and clear with minimal volume. She does not have any significant pulmonary secretions that would suggest a pneumonitis.] Objective Temp Pulse Resp BP Pulse Ox 99.2 F H 88 21 102/68 97 06/20/17 12:01 06/20/17 15:30 06/20/17 15:29 06/20/17 15:30 06/20/17 15:30 - Additional Data Intake & Output - Last 24 hours: Intake & Output 06/18/17 06/19/17 06/20/17 06/21/17 05:59 05:59 05:59 05:59 Intake Total 1198 / 1198 3523.4344 / 3523.4344 3209.3435 / 3209.3435 2115.889 / 2115.889 Output Total 2054 / 2054 4250 / 4250 6495 / 6495 1255 / 1255 Balance -857 / -857 -726.5656 / -726.5656 -3285.6565 / -3285.6565 860.889 / 860.889 Weight 183 lb 14.4 oz 186 lb 3.2 oz 174 lb 11.2 oz - General physical appearance no pain - Eyes PERRL (Is is she is if she cannot come off and this is all BS because the infected area is gone the body was not very) - Neck other ( positive JVD) - Respiratory other ( coarse tubular breath sounds) - Cardiovascular Cardiovascular exam: Present: normal rate and rhythm, JVD, +S1, +S2, tachycardia - Abdomen bowel sounds (Few active bowel sounds; his incision looks good; both stomas look good and are functioning), surgical scars - Neurologic other (Sedated) - Psychiatric other (Sedated) - Labs 06/20/17 04:00 06/20/17 04:00 Diabetes panel 06/20/17 Range/Units 04:00 Sodium 136 (133-145) mmol/L Potassium 4.3 (3.3-5.1) mmol/L Chloride 99 (96-108) mmol/L Carbon Dioxide 27 (22-30) mmol/L BUN 18 (8-23) mg/dl Creatinine 0.5 L (0.6-1.1) mg/dl Glucose 126 H (70-105) mg/dL Calcium 7.4 L (8.6-10.4) mg/dl AST 13 (0-37) U/l ALT 11 (0-40) U/l Alkaline Phosphatase 53 (39-117) U/L Total Protein 4.3 L (5.9-8.4) gm/dL Albumin 1.6 L (3.2-5.2) gm/dL Triglycerides 74 (<150) mg/dl Calcium panel 06/20/17 Range/Units 04:00 Calcium 7.4 L (8.6-10.4) mg/dl Phosphorus 4.5 (2.7-4.5) mg/dL Albumin 1.6 L (3.2-5.2) gm/dL Pituitary panel 06/20/17 Range/Units 04:00 Sodium 136 (133-145) mmol/L Potassium 4.3 (3.3-5.1) mmol/L Chloride 99 (96-108) mmol/L Carbon Dioxide 27 (22-30) mmol/L BUN 18 (8-23) mg/dl Creatinine 0.5 L (0.6-1.1) mg/dl Glucose 126 H (70-105) mg/dL Calcium 7.4 L (8.6-10.4) mg/dl Adrenal panel 06/20/17 Range/Units 04:00 Sodium 136 (133-145) mmol/L Potassium 4.3 (3.3-5.1) mmol/L Chloride 99 (96-108) mmol/L Carbon Dioxide 27 (22-30) mmol/L BUN 18 (8-23) mg/dl Creatinine 0.5 L (0.6-1.1) mg/dl Glucose 126 H (70-105) mg/dL Calcium 7.4 L (8.6-10.4) mg/dl Total Bilirubin 0.3 (0.0-1.0) mg/dL AST 13 (0-37) U/l ALT 11 (0-40) U/l Alkaline Phosphatase 53 (39-117) U/L Total Protein 4.3 L (5.9-8.4) gm/dL Albumin 1.6 L (3.2-5.2) gm/dL Assessment and Plan (1) Colon obstruction Problem details: Mass in sigmoid, resected 06/14/2017-diverticulitis Status: Acute Assessment and plan: patient is doing well and should be stable except for interstitial pulmonary edema and possible early ARDS This is compounded by generalized anasarca due to profound hypoalbuminemia Current Visit: Yes (2) Anemia Status: Acute Assessment and plan: she has stable hgb over the past 24 hr Current Visit: Yes (3) UTI due to Klebsiella species Status: Acute Current Visit: Yes - Time Spent With Patient Total time spent is greater than 50% in coordination of care (as documented) at patient's floor/unit and/or counseling patient:
[2017-06-20] MEDS ORDERED: ALBUMIN HUMAN 12.5 GM/50 ML BAG IV ONE (18:00)
[2017-06-21] MEDS: PIPERACILLIN SODIUM/TAZOBACTAM 3.375 GM in 0.9 % SODIUM CHLORIDE 50 ML IV SCH ×5 (00:37→23:58)
[2017-06-21] MEDS: IPRATROPIUM/ALBUTEROL 3 ML AMPUL.NEB NEB SCH ×6 (04:42→23:14)
[2017-06-21] MEDS: metroNIDAZOLE 500 MG/100 ML BAG IV SCH ×4 (04:42→22:59)
[2017-06-21] MEDS: 0.9 % SODIUM CHLORIDE 10 ML SYRINGE IV SCH ×4 (05:48→20:52)
[2017-06-21 06:10] LABS: Mean Cell Volume 81.6 fL (80.0-100.0); Mean Corpuscular HGB Conc 32.6 g/dL (31.0-36.0); Mean Corpuscular Hemoglobin 26.6 pg (26.0-34.0); Platelet Count 329 K/mcL (140-440); RBC 3.26 M/mcL (4.00-5.20); Red Cell Distribution Width 17.7 % (11.5-14.5)
[2017-06-21 06:48] LABS: Anisocytosis 2+ (NONE SEEN); Eosinophils % (Manual) 4 % (0-7); Lymphocytes % 3 % (15-49); Monocytes % (Manual) 8 % (1-12); Platelet Estimate NORMAL (NORMAL); RBC Morphology ABNORM (NORMAL); Segmented Neutrophils % 85 % (38-78)
[2017-06-21 06:49] LABS: ALT/SGPT 11 U/l (0-40); Albumin/Globulin Ratio 0.9 (1.0-2.3); Alkaline Phosphatase 50 U/L (39-117); Bilirubin,Direct 0.2 mg/dL (0.0-0.3); Blood Urea Nitrogen 25 mg/dl (8-23); Gamma Glutamyl Transpeptidase 51 U/L (5-36); Magnesium 2.1 mg/dL (1.6-2.5); Uric Acid 2.1 mg/dL (2.5-8.0)
[2017-06-21] MEDS: 0.9 % SODIUM CHLORIDE 250 ML IV SCH ×2 (07:00→22:58)
[2017-06-21] MEDS: PANTOPRAZOLE 40 MG VIAL IV SCH ×2 (07:35→16:56)
[2017-06-21 07:42] LABS: Prealbumin 11.2 mg/dl (20-40)
[2017-06-21] MEDS ORDERED: ALTEPLASE 2 MG VIAL IV ONE (08:55)
[2017-06-21] MEDS: NOREPINEPHRINE BITARTRATE 16 MG in 0.9 % SODIUM CHLORIDE 234 ML IV SCH (08:56)
[2017-06-21] MEDS: CHLORHEXIDINE GLUCONATE 1 ML ORAL.SOL SWABMOUTH SCH ×2 (08:58→20:52)
--- NOTE | 2017-06-21 08:59 | XRay Report ---
CLINICAL INFORMATION: Follow infiltrates on mechanical ventilation COMPARISON: 06/20/2017 FINDINGS: Diffuse bilateral infiltrates with only apical sparing show minor equivocal improvement since yesterday's study. Dense consolidation in the retrocardiac region likely represents left lower lobe atelectasis. Moderate bilateral pleural effusions shows no change. Lines and tubes in stable satisfactory position. Heart is mildly enlarged by stable. Mediastinum and pulmonary vessels are grossly normal IMPRESSION: Equivocal improvement in diffuse bilateral mid/lower lung field infiltrates. Dense consolidated atelectasis in the retrocardiac region. Moderate bilateral pleural effusions - stable Interpreted and Authenticated by: Valentin Torres 06/21/17
[2017-06-21] MEDS ORDERED: ALBUMIN HUMAN 25 GM/100 ML BAG IV ONE ×2 (09:03→18:00)
[2017-06-21] MEDS ORDERED: FUROSEMIDE 40 MG/4 ML VIAL IV ONE ×2 (09:04→18:00)
[2017-06-21] MEDS: VANCOMYCIN 1,500 MG in 0.9 % SODIUM CHLORIDE 500 ML IV SCH (10:14)
[2017-06-21] MEDS: CALCIUM GLUCONATE IV SCH (10:15)
[2017-06-21] MEDS: SODIUM CHLORIDE IV SCH (10:15)
[2017-06-21] MEDS: MAGNESIUM SULFATE IV SCH (10:15)
[2017-06-21] MEDS: [UNRECOGNIZED DRUG - OTHER] IV SCH (10:15)
[2017-06-21] MEDS ORDERED: NOREPINEPHRINE BITARTRATE 16 MG in 0.9 % SODIUM CHLORIDE 234 ML IV PRN (12:00)
--- NOTE | 2017-06-21 12:20 | Internal Med Progress Note ---
Medical - PN: Subj Patient information: Note initiated : 06/21/17 at 12:07 pm Service Date, if different from initiated Date: [] Patient: Caroline Bellamy a 77 y/o F admitted on 06/12/17 for N/V, UTI, Constipation/Colon Obstruction, UTI. Chief Complaint: [] Interval history: June 12 Ms. Adiel Cardoso is a 77 year old F who presents to the ED with ongoing complaints of abdominal pain. Patient awoke last Thursday with abdominal pain. She was also nauseated. She was seen in the emergency department due to ongoing symptoms on Thursday, 06/08. CT scan at that time showed some colonic thickening and wall edema without significant inflammatory changes. There was also diverticulosis. She had evidence of urinary tract infection and was started on Septra. Patient remained nauseated and was unable to take the Septra. She continued to have significant abdominal pain, up to 06/09. On the day following her ED visit , she was nauseated and was unable to keep anything down. She presented back to the emergency department, had Bactrim stopped and was changed over to ciprofloxacin. Neither the patient nor her family were aware that a new prescription of been generated and it was never picked up. On Thursday and she continued to have vomiting which was without blood. She continued to have significant abdominal pain up to "08/09". She presents back to the emergency department today because of ongoing abdominal pain, nausea and vomiting. With the onset of the pain a week ago, the pain was severe and was in the left lower quadrant, changing over to the right lower quadrant and becoming generalized as last week has progressed. She describes the quality of the pain is constant and aching with intermittent bouts of stabbing pain. Associated with nausea, vomiting without hematemesis. She has hydrocodone prescription for chronic back pain, that has helped her pain somewhat, though she has had some difficulty keeping medications down. She tried an oral Zofran, was able to keep one done yesterday, but not today. June 13 She is still complaining of significant abdominal pain, more so on the right side from the right upper and right lower quadrant. Tolerating clears, nausea has improved, no ecchymosis. She did have one small hard bowel movement, then to softer ones. She did receive bisacodyl rectally, also oral milk of magnesia and senna last evening. No fever, no chills. No significant dyspnea, has used 1 as needed nebulizer therapy. CT of the abdomen and pelvis was obtained due to ongoing pain. Spoke with radiology, films reviewed, she has dilated colon, ascending, transverse, descending with a transition point in the sigmoid where it decompresses. No pericolonic inflammatory changes, no mural thickening. Patient currently undergoing delayed images to see if there is passage of contrast. June 14 Still complaining of abdominal pain. Had some desaturation overnight, on oxygen. Received dose of furosemide earlier today. Still requiring regular Dilaudid today, though when I see her this morning the interval between when necessary doses has increased somewhat. Final results of CTAP yesterday without passage of contrast. I discussed the case with Dr. Eubanks last evening, he is seeing the patient today , plans to take to the operating room. Her white count was increased to 22,000 today. Ceftriaxone changed to Zosyn this morning. June 15 Patient currently in the intensive care unit following surgery yesterday. Had inflammatory mass causing sigmoid obstruction. Subsequently had rupture of right colon intraoperatively, necessitating colectomy and washout. 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 Wound is being packed open. Overnight patient received fluid resuscitation of 6 L NS, did achieve adequate CVP, still required norepinephrine. Today receiving packed red blood cells, still on norepinephrine, though that has been titrated down a bit. Remains sedated with propofol on ventilator. Plan to go back to the OR Thursday for washout and possible closure. June 16 Patient remained stable, ventilated and sedated. Remains on some Levophed for blood pressure support. Diuresed well with 40 mg of furosemide yesterday. Still with significant thigh and arm edema. Right pleural effusion on radiograph today, though infiltrates/atelectasis improves. Arterial line started to dampen and not function overnight, was removed. June 17 Patient now postop after planned second look exploratory laparotomy. No evidence of intra-abdominal abscess, final closure performed. Some increased airway pressures postoperatively, had been bagged on the way back to the ICU, which may explain some of her airway pressures and an increase in FiO2, seemed to be improving as the afternoon progresses. Nonpitting edema, urine output is adequate but not brisk, on 100 mils an hour fluid. Still on TPN. Still requiring some NE for BP support. June 18 Norepinephrine weaned off overnight. Remains significantly volume long. During wake up trial this morning, became tachypnea can airway pressures went up , did withdrawal from lower extremity stimuli, but did not open eyes to voice or respond upper extremity stimulus. Had to be re-sedated before this could happen due to her status. Chest x-ray showing some worsening congestion. Between TPN, drips and IV fluids containing almost 200 mL an hour. Will DC maintenance fluids, continuous TPN and drips, give furosemide today. We'll also add fentanyl infusion for baseline pain control in the postoperative state. Also on propofol for sedation. June 19: Patient seen examined, off pressors but still on [facility] ventilation. labs reviewed , worsening leucocytosis today at 16.3, CXR shows patient has bibasilar infiltrates. The patient was weaned off sedation this AM she opened eyes but did not follow commands, She became tachypenic and tachycardic, on wean trial. Pt TV was increased overnight by RT, changed back to 360 this AM repeat ABG to be done in 30 mins. Vancomycin was added yesterday in light of pulmonary infiltrates, Vent parameters AC mode, TV 360 (was 420 in AM), RR 16, Fio2 40, PEEP 5. Peak pressure 26-28, Plat 19-23, I/0 Pt was negative 1225 yesterday. sedation: propofol and fentanyl Diet TPN Riggs in place Right SC in place for central venous access June 20 Patient seen exmined, sedated on vent, Sedation was held this AM, and patient mental status improved, she was better than yesterday, did follow some commands. Placed on pressure support of 7, but became tachycardic and tachypenic after sometime. placed back on AC mode Her wbc is creeping up, we tried to change antibiotics from zosyn to carbapenum , but we are in short supply at this time. Xray done this AM shows significant worsening in her infiltrtes, chf vs ards Vent parameters AC mode TV 360, RR 12 (set), PEEP 5, Fio2 40, Plat 18-24, Peak 25-28 ABG 7.42/45/83 Lact 0.5 Patient responding well to diuresis, was neg 3L yesterday. June 21 Aly wheeler examined no acute overnight issues X ray stable today ABG stable, ph 7.45/45/79, Vent setting unchanged. Peak pressure 25, plat 22 WBC imprving on albumin and lasix bid for gen edema/ ards/ chf off propofol for today to see how she does with her mental status only on fenanyl, mental status much better, able to follow commands and nod to some questions. Plan of care reviewed with the patients daugther Pertinent ROS: unable - Constitutional Vitals: Vital Signs Temp Pulse Resp BP Pulse Ox 99.5 F H 104 H 17 127/64 96 06/21/17 08:01 06/21/17 11:16 06/21/17 11:16 06/21/17 08:01 06/21/17 11:16 Period Temp Pulse Resp BP Sys/[place] Pulse Ox Last 24 Hr 98.3 F-99.5 F 40-104 14-21 74-127/48-71 95-98 Intake and Output 06/20/17 06/21/17 06/21/17 21:59 05:59 13:59 Intake Total 215 / 215 150 / 150 1193 / 1193 Output Total 1615 / 1615 1580 / 1580 285 / 285 Balance -1400 / -1400 -1430 / -1430 908 / 908 Weight 179 lb 8 oz Intake & Output: Intake & Output 06/20/17 06/21/17 06/21/17 21:59 05:59 13:59 Intake Total 215 / 215 150 / 150 1193 / 1193 Output Total 1615 / 1615 1580 / 1580 285 / 285 Balance -1400 / -1400 -1430 / -1430 908 / 908 Weight 179 lb 8 oz Intake: IV 215 / 215 150 / 150 1193 / 1193 Calcium Gluconate 5 Meq 1043 / 1043 Magnesium Sulfate 16.24 Meq Sodium Chloride 40 Meq Potassium Phosphate 40 Meq Infuvite Adult 10 ml Selenium 60 Mcg Potassium Chloride 20 Meq In Clinimix 5%-20% Solution 1,000 ml @ 50 mls/hr IV Q21H [facility] Rx#:[id number] Zosyn 3.375 gm In Sodium 50 / 50 50 / 50 50 / 50 Chloride 0.9% 50 ml @ 100 mls/ hr IV Q6H [facility] Rx#:[id number] Diprivan 1,000 mg In Premix 1 15 / 15 Bag @ 5 MCG/KG/MIN 2.42 mls/hr IV .Q24H [facility] Rx#:[id number] fentaNYL 2,500 MCG In Sodium 50 / 50 Chloride 0.9% 200 ml @ 0.7 MCG/ KG/HR 5.83 mls/hr IV Q24H [facility] Rx#:[id number] Output: Gastric Drainage 50 / 50 50 / 50 NG/OG 50 / 50 50 / 50 Drainage 160 / 160 RIDDHI 'A' RIDDHI 'B' RIDDHI 'C' RIDDHI 'D' RIDDHI 'E' RIDDHI 'F' 60 / 60 Urine Catheter Amount 1565 / 1565 1370 / 1370 285 / 285 Exam: Constitutional; Afebrile, cooperative, awake off sedation, obeys some commands. gen anasarca Eyes- No icterus, , No periorbital swelling Ears- Ext ear normal, hearing normal to conversation. Neck- Midline trachea, supple Respiratory system: Air Entry equal on both sides, justin exp wheezing. conducted breath sounds justin, . CVS- Rate rhythm regular, S1,S2 heard, no gallop, no rub. Abdomen- Soft drain tubes in place, [employer]- AOOx0, moving all extremities, no gross focal deficit noted. Medical - PN: Obj Da - Labs CBC & Chem 7: 06/21/17 04:00 06/21/17 04:00 Labs: Abnormal Lab Results 06/21/17 06/21/17 06/20/17 04:00 04:00 04:00 WBC 17.0 H RBC 3.26 L 3.74 L Hgb 8.7 L 9.8 L Hct 26.6 L 30.3 L RDW 17.7 H 17.8 H Seg Neutrophils % 85 H 79 H Lymphocytes % 3 L 3 L RBC Morphology Abnorm A Abnorm A Anisocytosis 2+ A 1+ A BUN 25 H Creatinine Glucose 146 H Uric Acid 2.1 L Calcium 7.9 L Phosphorus GGT 51 H Lactate Dehydrogenase Total Protein 4.3 L Albumin 2.0 L Albumin/Globulin Ratio 0.9 L Prealbumin 11.2 L 06/20/17 06/19/17 06/19/17 04:00 04:00 04:00 WBC RBC Hgb Hct RDW Seg Neutrophils % Lymphocytes % RBC Morphology Anisocytosis BUN Creatinine 0.5 L 0.5 L Glucose 126 H 147 H Uric Acid 1.4 L 1.2 L Calcium 7.4 L 7.2 L Phosphorus 2.3 L GGT 51 H Lactate Dehydrogenase 258 H Total Protein 4.3 L 3.9 L Albumin 1.6 L 1.6 L Albumin/Globulin Ratio 0.6 L 0.7 L Prealbumin 9.9 L 5.4 L 06/19/17 04:00 WBC 16.3 H RBC 3.56 L Hgb 9.4 L Hct 29.0 L RDW 17.7 H Seg Neutrophils % 90 H Lymphocytes % 2 L RBC Morphology Abnorm A Anisocytosis 2+ A BUN Creatinine Glucose Uric Acid Calcium Phosphorus GGT Lactate Dehydrogenase Total Protein Albumin Albumin/Globulin Ratio Prealbumin Meds: Medications Acetaminophen (Tylenol) 650 mg PO Q6HP PRN PRN Reason: PAIN/FEVER > 101 Albuterol/Ipratropium (Duoneb) 3 ml NEB Q4HRT [facility] Last Admin: 06/21/17 11:15 Dose: 3 ml Artificial Tears (Artificial Tears Ophth Drops) 1 gtt OD QIDP PRN PRN Reason: Dry Eye(s) Last Admin: 06/20/17 13:10 Dose: 1 gtt Chlorhexidine Gluconate (Peridex) 15 ml SWABMOUTH BID [facility] Last Admin: 06/21/17 08:58 Dose: 15 ml Dextrose (Dextrose 50%) 25 ml IV UD PRN PRN Reason: Hypoglycemia Diagnostic Test (Pha) (Accu-Chek) 1 each FS Q6 [facility] Last Admin: 06/21/17 07:00 Dose: 1 each Hydromorphone HCl (Dilaudid) 0.5 mg IV Q1HP PRN PRN Reason: Pain Last Admin: 06/18/17 08:27 Dose: 0.5 mg Fat Emulsion Intravenous 250 (ml/ Premix) 250 mls @ 25 mls/hr IV [id number] [facility] Last Infusion: 06/20/17 03:24 Dose: Infused Metronidazole (Flagyl) 500 mg in 100 mls @ 100 mls/hr IV Q6H [facility] Last Infusion: 06/21/17 06:00 Dose: Infused Sodium Chloride (Sodium Chloride 0.9%) 250 mls @ 20 mls/hr IV .[id number] [facility] Last Admin: 06/20/17 23:32 Dose: Not Given Acetaminophen (Ofirmev) 1,000 mg in 100 mls @ 200 mls/hr IV Q6HP PRN PRN Reason: PAIN/FEVER > 101 Propofol 1,000 mg/ Premix 100 mls @ 2.42 mls/hr IV .Q24H PRN; Protocol; 5 MCG/ KG/MIN PRN Reason: ANXIETY/SEDATION Last Titration: 06/20/17 15:01 Dose: 10 mcg/kg/min, 4.85 mls/hr Fentanyl 2,500 mcg/ Sodium (Chloride) 250 mls @ 5.83 mls/hr IV Q24H [facility]; 0.7 MCG/KG/HR PRN Reason: Protocol Last Titration: 06/20/17 15:01 Dose: 0.5 mcg/kg/hr, 4.17 mls/hr Vancomycin HCl 1,500 mg/ (Sodium Chloride) 500 mls @ 333.3 mls/hr IV Q24H [facility] Last Admin: 06/21/17 10:14 Dose: 333.3 mls/hr Calcium Gluconate 5 meq/Magnesium Sulfate 16.24 meq/Sodium Chloride 40 meq/ Potassium Phosphate 40 meq/Multivitamins/Minerals 10 ml/Selenium 60 mcg/ Potassium Chloride 20 meq/ Amino Acids 1,055.3435 mls @ 50 mls/hr IV Q21H [facility] Last Admin: 06/21/17 10:15 Dose: 50 mls/hr Piperacillin Sod/Tazobactam (Sod 3.375 gm/ Sodium Chloride) 50 mls @ 100 mls/ hr IV Q6H [facility] Last Infusion: 06/21/17 06:30 Dose: Infused Norepinephrine Bitartrate 16 (mg/ Sodium Chloride) 250 mls @ 9.37 mls/hr IV Q24HP PRN; Protocol; 10 MCG/MIN PRN Reason: TITRATE TO KEEP MAP > 65 Midazolam HCl (Versed) 1 mg IV Q30MIN PRN PRN Reason: Sedation Ondansetron HCl (Zofran) 4 mg IV Q6HP PRN PRN Reason: Nausea And Vomiting Pantoprazole Sodium (Protonix) 40 mg IV BIDAC [facility] Last Admin: 06/21/17 07:35 Dose: 40 mg Sodium Chloride (Saline Flush) 10 ml IV UD PRN PRN Reason: medication Sodium Chloride (Saline Flush) 10 ml IV Q8 [facility] Last Admin: 06/21/17 07:35 Dose: 10 ml Vancomycin HCl (Vancomycin Per Pharmacy) 1 order IV [facility] [place] Medical - PN: A/P - Time Spent With Patient Total time spent is greater than 50% in coordination of care (as documented) at patient's floor/unit and/or counseling patient: - Narrative A/P Narrative: 77-year-old female without GI illness (though in retrospect has had diverticulitis in past) presents with abdominal pain, nausea and vomiting. Also has urinary tract infection. Evolution of distal colonic obstruction, subsequently went to the operating room on 06/14, resection of sigmoid mass, a contained perforation of transverse colon and spontaneous rupture of right colon intraoperatively. Acute diverticulitis. . Postop day # 7 , status post exploratory laparotomy, hemicolectomy with ileostomy, Clark's procedure with mucous fistula. Now Post-op day #4 from re- look and delayed closure. Plan: management Per surgery, continue Zosyn and metronidazole, add basal fentanyl for postoperative analgesia. HCAP PNA: On zosyn for GI, Vanco added yesterday, monitor. x ray stable today, wbc improved. monitor. Acute respiratory failure : ARDS vs CHF Vs PNA Sedated and ventilated. Plat < 30 at this time, patient on margi duonebs, at baseline oxygen and fio2 needs. Ion lasix and albumin neg 2L yesterday, will repeat today Asthma: on duonebs q4hrs , start on steroids IV Malnutrition Alb 2.0 on TPN, dietary following, prealbumin improved today. Hypokalemia / Hypomanesemia. replace as needed Anemia: likely related to underlying infection, monitor for now, hb stable. CODE STATUS, discussed with the patient at admission, is DNR Prophylaxis: Protonix, SCD's Critical care time spent > 40 mins in monitoring abg, x ray, antibiotics, nutrion, mnagement of vent . Procedures - Arterial Line Size (Gauge): 20
[2017-06-21] MEDS: methylPREDNISolone SOD SUCC 125 MG/2 ML VIAL IV SCH ×3 (12:49→23:58)
--- NOTE | 2017-06-21 15:00 | General Surgery Progress Note ---
Subjective Patient reports: afebrile Narrative: Note initiated : 06/21/17 at 2:57 pm Service Date, if different from initiated Date: [] Patient: Caroline Bellamy 77 y/o F admitted on 06/12/17 for N/V, UTI, Constipation/Colon Obstruction, UTI. Chief Complaint: [Patient is showing slow gradual improvement. She was taken off propofol and is now on fentanyl drip. She is partially alert and aware still ventilated. Her respiratory pattern has not deteriorated in spite of her being more alert. Her vital signs overall are stable and her white blood count today is normal. She has only 99.5 temperature elevation overnight. Her peripheral edema has begun to recede. Chest x-ray shows some improvement compared to the last 2 days with less interstitial edema though still with some atelectasis.] Objective Temp Pulse Resp BP Pulse Ox 98.7 F 98 H 17 125/68 96 06/21/17 12:17 06/21/17 14:01 06/21/17 13:25 06/21/17 14:01 06/21/17 14:01 - Additional Data Intake & Output - Last 24 hours: Intake & Output 06/19/17 06/20/17 06/21/17 06/22/17 05:59 05:59 05:59 05:59 Intake Total 3523.4344 / 3523.4344 3209.3435 / 3209.3435 2415.889 / 2415.889 1847 / 1847 Output Total 4250 / 4250 6495 / 6495 4450 / 4450 1735 / 1735 Balance -726.5656 / -726.5656 -3285.6565 / -3285.6565 -2034.111 / -2034.111 112 / 112 Weight 186 lb 3.2 oz 174 lb 11.2 oz 179 lb 8 oz - General physical appearance no distress - Eyes PERRL, other (Mild scleral edema) - ENT no congestion - Respiratory other (Coarse tubular breath sounds bilaterally with coarse wheezes) - Cardiovascular Cardiovascular exam: Present: irregular rhythm, JVD, +S1, +S2 (Mild tachycardia with multiple supraventricular beats), tachycardia - Abdomen soft, bowel sounds (Abdomen is nondistended; she has active bowel sounds; her incision looks good; RIDDHI drains with minimal serous fluid) - Neurologic other (More alert now that propofol is decreased) - Labs 06/21/17 04:00 06/21/17 04:00 Diabetes panel 06/21/17 Range/Units 04:00 Sodium 139 (133-145) mmol/L Potassium 4.0 (3.3-5.1) mmol/L Chloride 100 (96-108) mmol/L Carbon Dioxide 29 (22-30) mmol/L BUN 25 H (8-23) mg/dl Creatinine 0.6 (0.6-1.1) mg/dl Glucose 146 H (70-105) mg/dL Calcium 7.9 L (8.6-10.4) mg/dl AST 12 (0-37) U/l ALT 11 (0-40) U/l Alkaline Phosphatase 50 (39-117) U/L Total Protein 4.3 L (5.9-8.4) gm/dL Albumin 2.0 L (3.2-5.2) gm/dL Triglycerides 56 (<150) mg/dl Calcium panel 06/21/17 Range/Units 04:00 Calcium 7.9 L (8.6-10.4) mg/dl Phosphorus 4.2 (2.7-4.5) mg/dL Albumin 2.0 L (3.2-5.2) gm/dL Pituitary panel 06/21/17 Range/Units 04:00 Sodium 139 (133-145) mmol/L Potassium 4.0 (3.3-5.1) mmol/L Chloride 100 (96-108) mmol/L Carbon Dioxide 29 (22-30) mmol/L BUN 25 H (8-23) mg/dl Creatinine 0.6 (0.6-1.1) mg/dl Glucose 146 H (70-105) mg/dL Calcium 7.9 L (8.6-10.4) mg/dl Adrenal panel 06/21/17 Range/Units 04:00 Sodium 139 (133-145) mmol/L Potassium 4.0 (3.3-5.1) mmol/L Chloride 100 (96-108) mmol/L Carbon Dioxide 29 (22-30) mmol/L BUN 25 H (8-23) mg/dl Creatinine 0.6 (0.6-1.1) mg/dl Glucose 146 H (70-105) mg/dL Calcium 7.9 L (8.6-10.4) mg/dl Total Bilirubin 0.4 (0.0-1.0) mg/dL AST 12 (0-37) U/l ALT 11 (0-40) U/l Alkaline Phosphatase 50 (39-117) U/L Total Protein 4.3 L (5.9-8.4) gm/dL Albumin 2.0 L (3.2-5.2) gm/dL Assessment and Plan (1) Colon obstruction Problem details: Mass in sigmoid, resected 06/14/2017-diverticulitis Status: Acute Assessment and plan: patient is doing well and should be stable except for interstitial pulmonary edema and possible early ARDS This is compounded by generalized anasarca due to profound hypoalbuminemia Chest x-ray today looks better Current Visit: Yes (2) Anemia Status: Acute Assessment and plan: she has stable hgb over the past 24 hr She may need transfusion if her hemoglobin drifts down further Current Visit: Yes (3) UTI due to Klebsiella species Status: Acute Current Visit: Yes - Time Spent With Patient Total time spent is greater than 50% in coordination of care (as documented) at patient's floor/unit and/or counseling patient:
[2017-06-21] MEDS: fentaNYL 2,500 MCG in 0.9 % SODIUM CHLORIDE 200 ML IV SCH (15:15)
[2017-06-21] MEDS: PROPOFOL 1,000 MG in PREMIX 1 BAG IV PRN (15:33)
[2017-06-22] MEDS: IPRATROPIUM/ALBUTEROL 3 ML AMPUL.NEB NEB SCH ×6 (01:53→23:11)
[2017-06-22] MEDS: metroNIDAZOLE 500 MG/100 ML BAG IV SCH ×4 (05:04→22:49)
[2017-06-22 05:25] LABS: Mean Cell Volume 81.4 fL (80.0-100.0); Mean Corpuscular HGB Conc 32.5 g/dL (31.0-36.0); Mean Corpuscular Hemoglobin 26.5 pg (26.0-34.0); Platelet Count 411 K/mcL (140-440); RBC 3.44 M/mcL (4.00-5.20); Red Cell Distribution Width 17.9 % (11.5-14.5)
[2017-06-22 05:53] LABS: ALT/SGPT 11 U/l (0-40); Albumin/Globulin Ratio 1.6 (1.0-2.3); Alkaline Phosphatase 49 U/L (39-117); Bilirubin,Direct 0.2 mg/dL (0.0-0.3); Blood Urea Nitrogen 27 mg/dl (8-23); Gamma Glutamyl Transpeptidase 59 U/L (5-36); Magnesium 2.2 mg/dL (1.6-2.5); Uric Acid 2.4 mg/dL (2.5-8.0)
[2017-06-22] MEDS ORDERED: fentaNYL 100 MCG/2 ML VIAL IV ONE (05:55)
[2017-06-22] MEDS: fentaNYL 2,500 MCG in 0.9 % SODIUM CHLORIDE 200 ML IV SCH ×2 (05:56→10:54)
[2017-06-22] MEDS: 0.9 % SODIUM CHLORIDE 10 ML SYRINGE IV SCH ×7 (05:58→23:41)
[2017-06-22] MEDS: methylPREDNISolone SOD SUCC 125 MG/2 ML VIAL IV SCH ×4 (05:58→23:40)
[2017-06-22] MEDS: PIPERACILLIN SODIUM/TAZOBACTAM 3.375 GM in 0.9 % SODIUM CHLORIDE 50 ML IV SCH ×4 (06:40→23:41)
[2017-06-22 06:45] LABS: Anisocytosis 2+ (NONE SEEN); Band Neutrophils % 2 % (0-10); Lymphocytes % 1 % (15-49); Monocytes % (Manual) 3 % (1-12); Myelocytes % 3 % (0-0); Platelet Estimate NORMAL (NORMAL); RBC Morphology ABNORM (NORMAL); Segmented Neutrophils % 91 % (38-78)
[2017-06-22] MEDS ORDERED: [UNRECOGNIZED DRUG - OTHER] IV SCH (07:00)
[2017-06-22] MEDS ORDERED: SODIUM CHLORIDE IV SCH (07:00)
[2017-06-22] MEDS ORDERED: MAGNESIUM SULFATE IV SCH (07:00)
[2017-06-22] MEDS ORDERED: CALCIUM GLUCONATE IV SCH (07:00)
--- NOTE | 2017-06-22 07:37 | Operative Note ---
DATE OF OPERATION: 06/14/2017 PREOPERATIVE DIAGNOSIS: Colonic obstruction with possible perforation. POSTOPERATIVE DIAGNOSIS: Sigmoid colon obstruction with transverse colon obstruction. PROCEDURE: Extended right colectomy and sigmoidectomy with Brendon's procedure, with primary ileostomy and mucous fistula, right oophorectomy. FINDINGS: Massively dilated colon down to the distal sigmoid colon. Perforation of the proximal transverse colon with contained leakage of stool but free air. COMPLICATIONS: Intraoperative fecal contamination of peritoneal cavity on the right side doing right colectomy. DESCRIPTION OF PROCEDURE: Initially, the patient was placed in left lateral decubitus position. Under general endotracheal anesthesia, the patient was placed in left lateral decubitus position. Because of the free air it was decided that an aggressive sigmoidoscopy would not be done but I would make an attempt to try to determine if this was inflammatory or neoplastic. The scope was introduced and was able to be maneuvered to 30 cm. There was some slight stricture at this area, but there was no evidence of a neoplasm. I felt that I should not insufflate the colon anymore. The scope was withdrawn and the patient was turned to supine position. The abdomen was prepped and draped in a sterile field. A midline incision was made above and below the umbilicus. Upon entering the peritoneal cavity, there was free escape of a small amount of air. The incision was extended cephalad and caudad and the peritoneal cavity was explored. She had massively dilated colon that extended from the cecum down to the distal transverse colon. There were areas that were dark in the right colon and the proximal transverse colon. There was no free contamination of the peritoneal cavity initially and there was no turbid fluid. The pelvis was packed off and the sigmoid was mobilized. There was intense inflammation involving the right tube and ovary. Oophorectomy was done because of its intimate association with the sigmoid colon and the difficulty with the blood supply from the colon. Once this was done, the dissection was continued down into the hollow of the pelvis. The left ureter was isolated and dissected out of harm's way. There was some thickening of the distal sigmoid above the peritoneal reflection; however, there were no findings to suggest neoplasm. The dissection was carried out below the peritoneal reflection bilaterally. The sigmoid colon was mobilized up to the splenic flexure. The colon was transected proximal and distal to the strictured segment with a contour stapler. The mesocolon was serially clamped with Dede clamps and divided. The specimen was passed off. It was not opened, but it did not appear to contain any neoplastic tissue. Irrigation was carried out and the pelvis was packed off. The mesocolon vessels were controlled with ligatures of 0 silk. The rectal stump was identified with two sutures of 2-0 Prolene. The end of the proximal sigmoid was double stapled using a PL60 stapler. Next, the cecum was evaluated. There were areas of compromise of the wall, but there was no leakage of colonic contents. It was decided that the patient would probably need to have this area of cecum removed so the cecum was mobilized along its lateral attachments. The vessels of the mesocolon were transected using the LigaSure device. Large vessels were doubly clamped and controlled with 2-0 silk. As I was approaching the proximal transverse colon, there was a large escape of air and large volume of stool spilled into the right upper quadrant and down into the right side of the abdomen in the right gutter. There was an area that had previously perforated and sealed and there was some inflammatory omentum that was covering this area. The opening was found and was sutured closed with 2-0 silk suture. The rest of the proximal transverse colon was then removed up to the area of the middle colic artery. The colon was transected at this point, using the LigaSure the staple using the contour stapler. Further irrigation was carried out to remove as much fecal contamination as possible. Once this was felt to be adequately clean, the area above the liver and in the left subphrenic space was inspected and there was no contamination in these areas. The distal transverse colon was mobilized over to the splenic flexure. An opening was then made in the skin in the left upper quadrant and this was divided using electrocautery in a cruciate manner through the muscle and fascia, and peritoneum. The end of the distal transverse colon was brought out through this opening as a mucous fistula. The wall of the bowel was sutured to the peritoneum using interrupted 3-0 silk. Next, the terminal ileum was brought out through an opening in the right lower quadrant and the bowel was sutured to the peritoneum and fascia for the ileostomy. Multiple drains were placed. One drain was placed in each subphrenic area and another drain was placed in the subhepatic space in the upper abdomen. These were brought out in the right upper quadrant. There were three drains placed in the pelvis, one in the right gutter and two in the pelvis. Copious irrigation was carried out once more. There was no further bleeding. There was no major contamination. Sponge, needle, instrument blade counts were verified as correct. The fascia was closed with a running locking PDS #1 suture. The subcutaneous tissue was packed with Aquacel AG gauze and loosely approximated with 2-0 Prolene suture. The incision was covered and the ileostomy was matured using 3-0 silk on the bowel to the fascia and 3-0 Vicryl to suture the end of the bowel to the dermis. Next, the mucous fistula was matured in a similar manner. Ostomy appliances were placed uneventfully. The incision was covered with 4 x 4 gauze and Tegaderm. The patient was left intubated. The drains were secured with 2-0 silk. The patient was transferred to the ICU in stable satisfactory condition. LCS:[email or web address] Job ID: [id number] Doc ID: [id number] Amada Eubanks M.D.
[2017-06-22] MEDS: PANTOPRAZOLE 40 MG VIAL IV SCH ×2 (08:01→17:09)
[2017-06-22] MEDS: CALCIUM GLUCONATE 5 MEQ, MAGNESIUM SULFATE 16.24 MEQ, SODIUM CHLORIDE 20 MEQ, POTASSIUM... IV SCH (08:03)
--- NOTE | 2017-06-22 08:15 | XRay Report ---
HISTORY: Reason for Exam:Mechanically Ventilated , follow-up pulmonary infiltrates FINDINGS: There are moderate bilateral alveolar infiltrates with the greatest consolidation in the lower lobes. There has been a gradual improvement since 06/20/17. No pneumothorax is present. There is a tiny right-sided pleural effusion. The heart size is normal. Endotracheal tube, nasogastric tube and right subclavian catheters are well-positioned. The pulmonary vessels are obscured by the infiltrates. IMPRESSION: Improving bilateral pulmonary infiltrates which could be atelectasis or pneumonia. Interpreted and Authenticated by: Varghese Reich 06/22/17
[2017-06-22] MEDS ORDERED: IPRATROPIUM/ALBUTEROL 3 ML AMPUL.NEB NEB PRN (09:03)
[2017-06-22] MEDS ORDERED: MAGNESIUM SULFATE 2 GM/50 ML BAG IV ONE (09:29)
[2017-06-22] MEDS ORDERED: FUROSEMIDE 100 MG/10 ML VIAL IV ONE ×2 (09:33→18:00)
[2017-06-22] MEDS: VANCOMYCIN 1,500 MG in 0.9 % SODIUM CHLORIDE 500 ML IV SCH (09:35)
[2017-06-22] MEDS: CHLORHEXIDINE GLUCONATE 1 ML ORAL.SOL SWABMOUTH SCH ×2 (09:50→21:20)
[2017-06-22] MEDS: POLYVINYL ALCOHOL OPHTH DROPS 15ML BOTTLE OD PRN (09:51)
--- NOTE | 2017-06-22 11:10 | XRay Report ---
HISTORY: Reason for Exam:shortness of breath FINDINGS: Moderately severe generalized infiltrates are present in both lungs. These have become worse since the earlier study done at 6:37 AM on the same date. The pulmonary vessels now appear engorged. The heart does not appear abnormally enlarged. Endotracheal tube and nasogastric tube have been removed since earlier study. The right subclavian line remains well-positioned. IMPRESSION: Worsening bilateral infiltrates which could be due to congestive heart failure superimposed upon underlying atelectasis and pneumonia. ARDS is also in the differential. Interpreted and Authenticated by: Varghese Reich 06/22/17
[2017-06-22] MEDS: HYDROmorphone 2 MG/ML SYRINGE IV PRN ×4 (12:05→23:39)
--- NOTE | 2017-06-22 15:54 | General Surgery Progress Note ---
Subjective Patient reports: pain is less, flatus, bowel movement, afebrile Narrative: Note initiated : 06/22/17 at 3:52 pm Service Date, if different from initiated Date: [] Patient: Caroline Bellamy 77 y/o F admitted on 06/12/17 for N/V, UTI, Constipation/Colon Obstruction, UTI. Chief Complain] Patient is better. She was successfully extubated and has maintained good saturations and end-tidal CO2. She is extremely weak but this is not unanticipated because of her prolonged ventilation and sedation. She will start on occupational and physical therapy and should respond rather rapidly. She has put out over 7 L of fluid today and this will make a significant impact on her respiratory status. Her RIDDHI drains have purely serous fluid and will be removed tomorrow. Her stomas continuing to function well Objective Temp Pulse Resp BP Pulse Ox 98.4 F 93 H 18 135/69 94 06/22/17 12:01 06/22/17 15:33 06/22/17 15:33 06/22/17 15:01 06/22/17 15:01 - Additional Data Intake & Output - Last 24 hours: Intake & Output 06/20/17 06/21/17 06/22/17 06/23/17 05:59 05:59 05:59 05:59 Intake Total 3209.3435 / 3209.3435 2415.889 / 2415.889 2814 / 2814 2082.3435 / 2082.3435 Output Total 6495 / 6495 4450 / 4450 5270 / 5270 2665 / 2665 Balance -3285.6565 / -3285.6565 -2034.111 / -2034.111 -2456 / -2456 -582.6565 / -582.6565 Weight 174 lb 11.2 oz 179 lb 8 oz 174 lb 8 oz - General physical appearance other (Extubated and more alert but extremely weak) - Eyes PERRL, normal ocular movement - ENT no congestion - Neck no venous distension - Respiratory other (Coarse tubular breath sounds with coarse wheezes bilaterally) - Cardiovascular Cardiovascular exam: Present: JVD, +S1, +S2, tachycardia - Abdomen distended (Nondistended abdomen and nontender with functioning ileostomy and mucous fistula) - Integumentary no rash, no growths, no abnormal pigmentation - Neurologic other (Very weak but and responds appropriately aware ) - Psychiatric oriented to person, oriented to place, memory intact - Labs 06/22/17 04:00 06/22/17 04:00 Diabetes panel 06/22/17 Range/Units 04:00 Sodium 139 (133-145) mmol/L Potassium 4.3 (3.3-5.1) mmol/L Chloride 96 (96-108) mmol/L Carbon Dioxide 33 H (22-30) mmol/L BUN 27 H (8-23) mg/dl Creatinine 0.5 L (0.6-1.1) mg/dl Glucose 206 H (70-105) mg/dL Calcium 8.3 L (8.6-10.4) mg/dl AST 11 (0-37) U/l ALT 11 (0-40) U/l Alkaline Phosphatase 49 (39-117) U/L Total Protein 4.9 L (5.9-8.4) gm/dL Albumin 3.0 L (3.2-5.2) gm/dL Triglycerides 54 (<150) mg/dl Calcium panel 06/22/17 Range/Units 04:00 Calcium 8.3 L (8.6-10.4) mg/dl Phosphorus 3.5 (2.7-4.5) mg/dL Albumin 3.0 L (3.2-5.2) gm/dL Pituitary panel 06/22/17 Range/Units 04:00 Sodium 139 (133-145) mmol/L Potassium 4.3 (3.3-5.1) mmol/L Chloride 96 (96-108) mmol/L Carbon Dioxide 33 H (22-30) mmol/L BUN 27 H (8-23) mg/dl Creatinine 0.5 L (0.6-1.1) mg/dl Glucose 206 H (70-105) mg/dL Calcium 8.3 L (8.6-10.4) mg/dl Adrenal panel 06/22/17 Range/Units 04:00 Sodium 139 (133-145) mmol/L Potassium 4.3 (3.3-5.1) mmol/L Chloride 96 (96-108) mmol/L Carbon Dioxide 33 H (22-30) mmol/L BUN 27 H (8-23) mg/dl Creatinine 0.5 L (0.6-1.1) mg/dl Glucose 206 H (70-105) mg/dL Calcium 8.3 L (8.6-10.4) mg/dl Total Bilirubin 0.4 (0.0-1.0) mg/dL AST 11 (0-37) U/l ALT 11 (0-40) U/l Alkaline Phosphatase 49 (39-117) U/L Total Protein 4.9 L (5.9-8.4) gm/dL Albumin 3.0 L (3.2-5.2) gm/dL Assessment and Plan (1) Colon obstruction Problem details: Mass in sigmoid, resected 06/14/2017-diverticulitis Status: Acute Assessment and plan: patient is doing well and should be stable except for interstitial pulmonary edema and possible early ARDS This is compounded by generalized anasarca due to profound hypoalbuminemia Chest x-ray today looks better Current Visit: Yes (2) Anemia Status: Acute Assessment and plan: she has stable hgb over the past 24 hr Current Visit: Yes (3) UTI due to Klebsiella species Status: Acute Current Visit: Yes - Time Spent With Patient Total time spent is greater than 50% in coordination of care (as documented) at patient's floor/unit and/or counseling patient:
[2017-06-22] MEDS: FAT EMULSION 20% 250 ML in PREMIX 1 BAG IV SCH (16:21)
[2017-06-22] MEDS: 0.9 % SODIUM CHLORIDE 250 ML IV SCH ×2 (17:34→21:19)
[2017-06-22] MEDS: CIPROFLOXACIN 400 MG/200 ML BAG IV SCH (19:25)
[2017-06-22] MEDS ORDERED: DEXTROSE 50% 50 ML VIAL IV PRN (19:26)
[2017-06-22] MEDS ORDERED: CIPROFLOXACIN 400 MG/200 ML BAG IV ONE (19:28)
--- NOTE | 2017-06-22 19:40 | Internal Med Progress Note ---
Medical - PN: Subj Patient information: Note initiated : 06/22/17 at 7:38 pm Service Date, if different from initiated Date: [] Patient: Caroline Bellamy a 77 y/o F admitted on 06/12/17 for N/V, UTI, Constipation/Colon Obstruction, UTI. Chief Complaint: [] Interval history: June 12 Ms. Adiel Cardoso is a 77 year old F who presents to the ED with ongoing complaints of abdominal pain. Patient awoke last Thursday with abdominal pain. She was also nauseated. She was seen in the emergency department due to ongoing symptoms on Thursday, 06/08. CT scan at that time showed some colonic thickening and wall edema without significant inflammatory changes. There was also diverticulosis. She had evidence of urinary tract infection and was started on Septra. Patient remained nauseated and was unable to take the Septra. She continued to have significant abdominal pain, up to 06/09. On the day following her ED visit , she was nauseated and was unable to keep anything down. She presented back to the emergency department, had Bactrim stopped and was changed over to ciprofloxacin. Neither the patient nor her family were aware that a new prescription of been generated and it was never picked up. On Thursday and she continued to have vomiting which was without blood. She continued to have significant abdominal pain up to "08/09". She presents back to the emergency department today because of ongoing abdominal pain, nausea and vomiting. With the onset of the pain a week ago, the pain was severe and was in the left lower quadrant, changing over to the right lower quadrant and becoming generalized as last week has progressed. She describes the quality of the pain is constant and aching with intermittent bouts of stabbing pain. Associated with nausea, vomiting without hematemesis. She has hydrocodone prescription for chronic back pain, that has helped her pain somewhat, though she has had some difficulty keeping medications down. She tried an oral Zofran, was able to keep one done yesterday, but not today. June 13 She is still complaining of significant abdominal pain, more so on the right side from the right upper and right lower quadrant. Tolerating clears, nausea has improved, no ecchymosis. She did have one small hard bowel movement, then to softer ones. She did receive bisacodyl rectally, also oral milk of magnesia and senna last evening. No fever, no chills. No significant dyspnea, has used 1 as needed nebulizer therapy. CT of the abdomen and pelvis was obtained due to ongoing pain. Spoke with radiology, films reviewed, she has dilated colon, ascending, transverse, descending with a transition point in the sigmoid where it decompresses. No pericolonic inflammatory changes, no mural thickening. Patient currently undergoing delayed images to see if there is passage of contrast. June 14 Still complaining of abdominal pain. Had some desaturation overnight, on oxygen. Received dose of furosemide earlier today. Still requiring regular Dilaudid today, though when I see her this morning the interval between when necessary doses has increased somewhat. Final results of CTAP yesterday without passage of contrast. I discussed the case with Dr. Eubanks last evening, he is seeing the patient today , plans to take to the operating room. Her white count was increased to 22,000 today. Ceftriaxone changed to Zosyn this morning. June 15 Patient currently in the intensive care unit following surgery yesterday. Had inflammatory mass causing sigmoid obstruction. Subsequently had rupture of right colon intraoperatively, necessitating colectomy and washout. 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 Wound is being packed open. Overnight patient received fluid resuscitation of 6 L NS, did achieve adequate CVP, still required norepinephrine. Today receiving packed red blood cells, still on norepinephrine, though that has been titrated down a bit. Remains sedated with propofol on ventilator. Plan to go back to the OR Thursday for washout and possible closure. June 16 Patient remained stable, ventilated and sedated. Remains on some Levophed for blood pressure support. Diuresed well with 40 mg of furosemide yesterday. Still with significant thigh and arm edema. Right pleural effusion on radiograph today, though infiltrates/atelectasis improves. Arterial line started to dampen and not function overnight, was removed. June 17 Patient now postop after planned second look exploratory laparotomy. No evidence of intra-abdominal abscess, final closure performed. Some increased airway pressures postoperatively, had been bagged on the way back to the ICU, which may explain some of her airway pressures and an increase in FiO2, seemed to be improving as the afternoon progresses. Nonpitting edema, urine output is adequate but not brisk, on 100 mils an hour fluid. Still on TPN. Still requiring some NE for BP support. June 18 Norepinephrine weaned off overnight. Remains significantly volume long. During wake up trial this morning, became tachypnea can airway pressures went up , did withdrawal from lower extremity stimuli, but did not open eyes to voice or respond upper extremity stimulus. Had to be re-sedated before this could happen due to her status. Chest x-ray showing some worsening congestion. Between TPN, drips and IV fluids containing almost 200 mL an hour. Will DC maintenance fluids, continuous TPN and drips, give furosemide today. We'll also add fentanyl infusion for baseline pain control in the postoperative state. Also on propofol for sedation. June 19: Patient seen examined, [facility] press[facility] labs reviewed , worsening leucocytosis today at 16.3, CXR shows patient has bibasilar infiltrates. The patient was weaned off sedation this AM she opened eyes but did not follow commands, She became tachypenic and tachycardic, on wean trial. Pt TV was increased overnight by RT, changed back to 360 this AM repeat ABG to be done in 30 mins. Vancomycin was added yesterday in light of pulmonary infiltrates, Vent parameters AC mode, TV 360 (was 420 in AM), RR 16, Fio2 40, PEEP 5. Peak pressure 26-28, Plat 19-23, I/0 Pt was negative 1225 yesterday. sedation: propofol and fentanyl Diet TPN Riggs in place Right SC in place for central venous access June 20 Patient seen exmined, sedated on vent, Sedation was held this AM, and patient mental status improved, she was better than yesterday, did follow some commands. Placed on pressure support of 7, but became tachycardic and tachypenic after sometime. placed back on AC mode Her wbc is creeping up, we tried to change antibiotics from zosyn to carbapenum , but we are in short supply at this time. Xray done this AM shows significant worsening in her infiltrtes, chf vs ards Vent parameters AC mode TV 360, RR 12 (set), PEEP 5, Fio2 40, Plat 18-24, Peak 25-28 ABG 7.42/45/83 Lact 0.5 Patient responding well to diuresis, was neg 3L yesterday. June 21 Aly wheeler examined no acute overnight issues X ray stable today ABG stable, ph 7.45/45/79, Vent setting unchanged. Peak pressure 25, plat 22 WBC imprving on albumin and lasix bid for gen edema/ ards/ chf off propofol for today to see how she does with her mental status only on fenanyl, mental status much better, able to follow commands and nod to some questions. Plan of care reviewed with the patients daugther June 22 patien seen examined, good mental status off sedatives, following commands She did well on weaning parameters for extubation, vasyl index < 105, SBT on 7 SP was well tolerated with good tidal volues pt extubated this AM, however was short of breath on extubation, She was given duonebs and palced on bipap. The aptient repeat abg was good, x ray showed pulmonary congestion. IV lasix and bipap continued. She is obeying c ommands. for now Sputum cx is suggestive of pseudomonas. d/c vanco, IV cipro added. continue zosyn. wbc mildy uptrended today but pt was on steroids Pertinent ROS: unable - Constitutional Vitals: Vital Signs Temp Pulse Resp BP Pulse Ox 98.4 F 87 17 130/69 96 06/22/17 12:01 06/22/17 19:34 06/22/17 19:34 06/22/17 19:01 06/22/17 19:31 Period Temp Pulse Resp BP Sys/[place] Pulse Ox Last 24 Hr 97.8 F-99.5 F 55-108 12-26 88-152/48-90 91-99 Intake and Output 06/22/17 06/22/17 06/22/17 05:59 13:59 21:59 Intake Total 324 / 324 2132.3435 / 2132.3435 150 / 150 Output Total 1105 / 1105 2205 / 2205 1395 / 1395 Balance -781 / -781 -72.6565 / -72.6565 -1245 / -1245 Intake & Output: Intake & Output 06/22/17 06/22/17 06/22/17 05:59 13:59 21:59 Intake Total 324 / 324 2132.3435 / 2132.3435 150 / 150 Output Total 1105 / 1105 2205 / 2205 1395 / 1395 Balance -781 / -781 -72.6565 / -72.6565 -1245 / -1245 Intake: IV 324 / 324 2072.3435 / 207.3435 150 / 150 Sodium Chloride 0.9% 250 ml @ 56 / 56 0 / 0 20 mls/hr IV .[id number] [facility] Rx#: [id number] Calcium Gluconate 5 Meq 1055.3435 / 1055.3435 Magnesium Sulfate 16.24 Meq Sodium Chloride 40 Meq Potassium Phosphate 40 Meq Infuvite Adult 10 ml Selenium 60 Mcg Potassium Chloride 20 Meq In Clinimix 5%-20% Solution 1,000 ml @ 50 mls/hr IV Q21H [facility] Rx#:[id number] Zosyn 3.375 gm In Sodium 50 / 50 100 / 100 50 / 50 Chloride 0.9% 50 ml @ 100 mls/ hr IV Q6H [facility] Rx#:[id number] Diprivan 1,000 mg In Premix 1 72 / 72 0 / 0 Bag @ 5 MCG/KG/MIN 2.42 mls/hr IV .Q24H PRN Rx#:[id number] Vancomycin 1,500 mg In Sodium 500 / 500 Chloride 0.9% 500 ml @ 333.3 mls/hr IV Q24H [facility] Rx#: [id number] fentaNYL 2,500 MCG In Sodium 174 / 174 39 / 39 0 / 0 Chloride 0.9% 200 ml @ 0.7 MCG/ KG/HR 5.83 mls/hr IV Q24H [facility] Rx#:[id number] IV - Manual Only 60 / 60 Output: Gastric Drainage 125 / 125 NG/OG / 125 / 125 Drainage 170 / 170 45 / 45 85 / 85 RIDDHI 'A' RIDDHI 'B' RIDDHI 'C' RIDDHI 'D' RIDDHI 'E' RIDDHI 'F' 80 / 80 45 / 45 45 / 45 Urine Catheter Amount 910 / 910 2034 / 2034 1040 / 1040 Void Amount 220 / 220 Stool 50 / 50 Exam: Constitutional; Afebrile, cooperative, alert, in mild distress afte extubation. On bipap now. Eyes- No icterus, , No periorbital swelling Ears- Ext ear normal, hearing normal to conversation. uses hearing aids Neck- Midline trachea, supple Respiratory system: Air Entry equal on both sides, justin wheezing and basilar crackles noted CVS- Rate rhythm regular, S1,S2 heard, no gallop, no rub. [employer]- AOOx1, moving all extremities, no gross focal deficit noted. Medical - PN: Obj Da - Labs CBC & Chem 7: 06/22/17 04:00 06/22/17 04:00 Labs: Abnormal Lab Results 06/22/17 06/22/17 06/21/17 04:00 04:00 04:00 WBC 14.0 H RBC 3.44 L Hgb 9.1 L Hct 28.0 L RDW 17.9 H Seg Neutrophils % 91 H Lymphocytes % 1 L Myelocytes % 3 H RBC Morphology Abnorm A Anisocytosis 2+ A RBC Fragments Occ A Carbon Dioxide 33 H BUN 27 H 25 H Creatinine 0.5 L Glucose 206 H 146 H Uric Acid 2.4 L 2.1 L Calcium 8.3 L 7.9 L GGT 59 H 51 H Lactate Dehydrogenase Total Protein 4.9 L 4.3 L Albumin 3.0 L 2.0 L Globulin 1.9 L Albumin/Globulin Ratio 0.9 L Prealbumin 11.2 L 06/21/17 06/20/17 06/20/17 04:00 04:00 04:00 WBC 17.0 H RBC 3.26 L 3.74 L Hgb 8.7 L 9.8 L Hct 26.6 L 30.3 L RDW 17.7 H 17.8 H Seg Neutrophils % 85 H 79 H Lymphocytes % 3 L 3 L Myelocytes % RBC Morphology Abnorm A Abnorm A Anisocytosis 2+ A 1+ A RBC Fragments Carbon Dioxide BUN Creatinine 0.5 L Glucose 126 H Uric Acid 1.4 L Calcium 7.4 L GGT 51 H Lactate Dehydrogenase 258 H Total Protein 4.3 L Albumin 1.6 L Globulin Albumin/Globulin Ratio 0.6 L Prealbumin 9.9 L Meds: Medications Acetaminophen (Tylenol) 650 mg PO Q6HP PRN PRN Reason: PAIN/FEVER > 101 Albuterol/Ipratropium (Duoneb) 3 ml NEB Q4HRT [facility] Last Admin: 06/22/17 19:22 Dose: 3 ml Albuterol/Ipratropium (Duoneb) 3 ml NEB Q4HP PRN PRN Reason: Shortness Of Breath Or Wheezing Last Admin: 06/22/17 11:05 Dose: 3 ml Artificial Tears (Artificial Tears Ophth Drops) 1 gtt OD QIDP PRN PRN Reason: Dry Eye(s) Last Admin: 06/20/17 13:10 Dose: 1 gtt Chlorhexidine Gluconate (Peridex) 15 ml SWABMOUTH BID [facility] Last Admin: 06/22/17 09:50 Dose: 15 ml Dextrose (Dextrose 50%) 25 ml IV UD PRN PRN Reason: Hypoglycemia Dextrose (Dextrose 50%) 0 ml IV UD PRN PRN Reason: Hypoglycemia Diagnostic Test (Pha) (Accu-Chek) 1 each FS Q6 KRISS Last Admin: 06/22/17 19:00 Dose: 1 each Diagnostic Test (Pha) (Accu-Chek) 1 each FS Q6 KRISS Furosemide (Lasix) 60 mg IV Q12 KRISS Hydromorphone HCl (Dilaudid) 0.5 mg IV Q1HP PRN PRN Reason: Pain Last Admin: 06/22/17 18:37 Dose: 0.5 mg Fat Emulsion Intravenous 250 (ml/ Premix) 250 mls @ 25 mls/hr IV [id number] [facility] Last Admin: 06/22/17 16:21 Dose: 25 mls/hr Metronidazole (Flagyl) 500 mg in 100 mls @ 100 mls/hr IV Q6H [facility] Last Infusion: 06/22/17 18:20 Dose: Infused Sodium Chloride (Sodium Chloride 0.9%) 250 mls @ 20 mls/hr IV .[id number] [facility] Last Infusion: 06/22/17 17:34 Dose: Infused Acetaminophen (Ofirmev) 1,000 mg in 100 mls @ 200 mls/hr IV Q6HP PRN PRN Reason: PAIN/FEVER > 101 Propofol 1,000 mg/ Premix 100 mls @ 2.42 mls/hr IV .Q24H PRN; Protocol; 5 MCG/ KG/MIN PRN Reason: ANXIETY/SEDATION Last Titration: 06/22/17 17:40 Dose: Infused Fentanyl 2,500 mcg/ Sodium (Chloride) 250 mls @ 5.83 mls/hr IV Q24H KRISS; 0.7 MCG/KG/HR PRN Reason: Protocol Last Titration: 06/22/17 17:36 Dose: Infused Piperacillin Sod/Tazobactam (Sod 3.375 gm/ Sodium Chloride) 50 mls @ 100 mls/ hr IV Q6H [facility] Last Infusion: 06/22/17 19:02 Dose: Infused Norepinephrine Bitartrate 16 (mg/ Sodium Chloride) 250 mls @ 9.37 mls/hr IV Q24HP PRN; Protocol; 10 MCG/MIN PRN Reason: TITRATE TO KEEP MAP > 65 Calcium Gluconate 5 meq/Magnesium Sulfate 16.24 meq/Sodium Chloride 20 meq/ Potassium Phosphate 40 meq/Multivitamins/Minerals 10 ml/Selenium 60 mcg/ Potassium Chloride 20 meq/ Sodium Acetate 20 meq/ Amino Acids 1,060.3435 mls @ 50 mls/hr IV Q21H [facility] Last Admin: 06/22/17 08:03 Dose: 50 mls/hr Ciprofloxacin (Cipro) 400 mg in 200 mls @ 200 mls/hr IV Q12H [facility] Last Admin: 06/22/17 19:25 Dose: Not Given Insulin Human Lispro (Humalog) 0 unit SQ Q6 [facility] PRN Reason: Protocol Methylprednisolone Sodium Succinate (Solu-Medrol) 62.5 mg IV Q6 [facility] Last Admin: 06/22/17 17:50 Dose: 62.5 mg Midazolam HCl (Versed) 1 mg IV Q30MIN PRN PRN Reason: Sedation Ondansetron HCl (Zofran) 4 mg IV Q6HP PRN PRN Reason: Nausea And Vomiting Pantoprazole Sodium (Protonix) 40 mg IV BIDAC [facility] Last Admin: 06/22/17 17:09 Dose: 40 mg Sodium Chloride (Saline Flush) 10 ml IV UD PRN PRN Reason: medication Sodium Chloride (Saline Flush) 10 ml IV Q8 [facility] Last Admin: 06/22/17 18:38 Dose: 10 ml Medical - PN: A/P - Time Spent With Patient Total time spent is greater than 50% in coordination of care (as documented) at patient's floor/unit and/or counseling patient: - Narrative A/P Narrative: 77-year-old female without GI illness (though in retrospect has had diverticulitis in past) presents with abdominal pain, nausea and vomiting. Also has urinary tract infection. Evolution of distal colonic obstruction, subsequently went to the operating room on 06/14, resection of sigmoid mass, a contained perforation of transverse colon and spontaneous rupture of right colon intraoperatively. Acute diverticulitis. . Postop day # 8 , status post exploratory laparotomy, hemicolectomy with ileostomy, Clark's procedure with mucous fistula. Now Post-op day #5 from re- look and delayed closure. Plan: management Per surgery, continue Zosyn and metronidazole, add basal fentanyl for postoperative analgesia. HCAP PNA: Pseudomonas likely on sputum cx, add cipro ,stop vanco, continue on zosyn for GI, Acute respiratory failure : ARDS vs CHF Vs PNA extubated today on bipap for vent support .14/8 fio2 40, rr 14 Asthma: on duonebs q4hrs , on IV solumedrol, justin exp wheezing present Malnutrition on TPN, will contiue same for now, consider enteral feeds when patient is more stable. Hypokalemia / Hypomanesemia. replace as needed Anemia: likely related to underlying infection, monitor for now, hb stable. CODE STATUS, discussed with the patient at admission, is DNR Prophylaxis: Protonix, SCD's Critical care time spent > 60 mins in monitoring abg, x ray, antibiotics, nutrion, mnagement of vent . Procedures - Arterial Line Size (Gauge): 20
[2017-06-22] MEDS ORDERED: LORazepam 2 MG/ML VIAL ONE (19:52)
[2017-06-22] MEDS: INSULIN LISPRO 1 UNIT/0.01 ML UNIT SQ SCH (23:57)
[2017-06-23] MEDS: HYDROmorphone 2 MG/ML SYRINGE IV PRN ×7 (02:05→22:57)
[2017-06-23] MEDS: IPRATROPIUM/ALBUTEROL 3 ML AMPUL.NEB NEB SCH ×6 (03:04→22:49)
[2017-06-23] MEDS: LORazepam 2 MG/ML VIAL IV PRN ×2 (04:48→19:44)
[2017-06-23] MEDS: metroNIDAZOLE 500 MG/100 ML BAG IV SCH ×4 (04:49→22:55)
[2017-06-23] MEDS: 0.9 % SODIUM CHLORIDE 10 ML SYRINGE IV SCH ×9 (04:49→22:57)
[2017-06-23 05:07] LABS: Mean Cell Volume 81.5 fL (80.0-100.0); Mean Corpuscular HGB Conc 33.1 g/dL (31.0-36.0); Platelet Count 413 K/mcL (140-440); RBC 3.46 M/mcL (4.00-5.20); Red Cell Distribution Width 17.1 % (11.5-14.5)
[2017-06-23] MEDS: methylPREDNISolone SOD SUCC 125 MG/2 ML VIAL IV SCH ×3 (05:17→18:01)
[2017-06-23] MEDS: PIPERACILLIN SODIUM/TAZOBACTAM 3.375 GM in 0.9 % SODIUM CHLORIDE 50 ML IV SCH ×3 (05:17→18:17)
[2017-06-23 05:38] LABS: ALT/SGPT 11 U/l (0-40); Albumin 2.7 gm/dL (3.2-5.2); Albumin/Globulin Ratio 1.1 (1.0-2.3); Alkaline Phosphatase 50 U/L (39-117); Bilirubin,Direct < 0.2 mg/dL (0.0-0.3); Blood Urea Nitrogen 27 mg/dl (8-23); Gamma Glutamyl Transpeptidase 68 U/L (5-36); Magnesium 2.3 mg/dL (1.6-2.5); Uric Acid 2.4 mg/dL (2.5-8.0)
[2017-06-23 05:58] LABS: Anisocytosis 1+ (NONE SEEN); Band Neutrophils % 3 % (0-10); Lymphocytes % 2 % (15-49); Monocytes % (Manual) 8 % (1-12); Platelet Estimate NORMAL (NORMAL); RBC Morphology ABNORM (NORMAL); Segmented Neutrophils % 87 % (38-78)
[2017-06-23] MEDS: INSULIN LISPRO 1 UNIT/0.01 ML UNIT SQ SCH ×3 (07:45→18:06)
[2017-06-23] MEDS: PANTOPRAZOLE 40 MG VIAL IV SCH ×2 (07:56→16:50)
[2017-06-23] MEDS: FUROSEMIDE 100 MG/10 ML VIAL IV SCH ×3 (07:56→21:57)
[2017-06-23] MEDS ORDERED: acetaZOLAMIDE 250 MG TABLET PO ONE (08:25)
--- NOTE | 2017-06-23 08:47 | XRay Report ---
HISTORY: Reason for Exam:Dyspnea FINDINGS: There are bibasilar infiltrates along with milder involvement around the marlene bilaterally. These have improved since 06/22/17. The pulmonary vessels, best seen in the upper lobes no longer appear congested. Heart size is within normal limits. Right subclavian catheter is well-positioned. There may be a tiny left-sided pleural effusion. IMPRESSION: Improving bilateral pulmonary infiltrates Interpreted and Authenticated by: Varghese Reich 06/23/17
[2017-06-23] MEDS: CALCIUM GLUCONATE 5 MEQ, MAGNESIUM SULFATE 16.24 MEQ, SODIUM CHLORIDE 20 MEQ, POTASSIUM... IV SCH (08:55)
[2017-06-23] MEDS: CIPROFLOXACIN 400 MG/200 ML BAG IV SCH ×2 (09:16→21:55)
[2017-06-23] MEDS: CHLORHEXIDINE GLUCONATE 1 ML ORAL.SOL SWABMOUTH SCH ×2 (09:20→21:55)
[2017-06-23] MEDS: HEPARIN 5,000 UNIT/ML VIAL SQ SCH ×2 (10:09→21:57)
--- NOTE | 2017-06-23 12:18 | Internal Med Progress Note ---
Medical - PN: Subj Patient information: Note initiated : 06/23/17 at 12:15 pm Service Date, if different from initiated Date: [] Patient: Caroline Bellamy a 77 y/o F admitted on 06/12/17 for N/V, UTI, Constipation/Colon Obstruction, UTI. Chief Complaint: [] Interval history: June 12 Ms. Adiel Cardoso is a 77 year old F who presents to the ED with ongoing complaints of abdominal pain. Patient awoke last Thursday with abdominal pain. She was also nauseated. She was seen in the emergency department due to ongoing symptoms on Thursday, 06/08. CT scan at that time showed some colonic thickening and wall edema without significant inflammatory changes. There was also diverticulosis. She had evidence of urinary tract infection and was started on Septra. Patient remained nauseated and was unable to take the Septra. She continued to have significant abdominal pain, up to 06/09. On the day following her ED visit , she was nauseated and was unable to keep anything down. She presented back to the emergency department, had Bactrim stopped and was changed over to ciprofloxacin. Neither the patient nor her family were aware that a new prescription of been generated and it was never picked up. On Thursday and she continued to have vomiting which was without blood. She continued to have significant abdominal pain up to "08/09". She presents back to the emergency department today because of ongoing abdominal pain, nausea and vomiting. With the onset of the pain a week ago, the pain was severe and was in the left lower quadrant, changing over to the right lower quadrant and becoming generalized as last week has progressed. She describes the quality of the pain is constant and aching with intermittent bouts of stabbing pain. Associated with nausea, vomiting without hematemesis. She has hydrocodone prescription for chronic back pain, that has helped her pain somewhat, though she has had some difficulty keeping medications down. She tried an oral Zofran, was able to keep one done yesterday, but not today. June 13 She is still complaining of significant abdominal pain, more so on the right side from the right upper and right lower quadrant. Tolerating clears, nausea has improved, no ecchymosis. She did have one small hard bowel movement, then to softer ones. She did receive bisacodyl rectally, also oral milk of magnesia and senna last evening. No fever, no chills. No significant dyspnea, has used 1 as needed nebulizer therapy. CT of the abdomen and pelvis was obtained due to ongoing pain. Spoke with radiology, films reviewed, she has dilated colon, ascending, transverse, descending with a transition point in the sigmoid where it decompresses. No pericolonic inflammatory changes, no mural thickening. Patient currently undergoing delayed images to see if there is passage of contrast. June 14 Still complaining of abdominal pain. Had some desaturation overnight, on oxygen. Received dose of furosemide earlier today. Still requiring regular Dilaudid today, though when I see her this morning the interval between when necessary doses has increased somewhat. Final results of CTAP yesterday without passage of contrast. I discussed the case with Dr. Eubanks last evening, he is seeing the patient today , plans to take to the operating room. Her white count was increased to 22,000 today. Ceftriaxone changed to Zosyn this morning. June 15 Patient currently in the intensive care unit following surgery yesterday. Had inflammatory mass causing sigmoid obstruction. Subsequently had rupture of right colon intraoperatively, necessitating colectomy and washout. 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 Wound is being packed open. Overnight patient received fluid resuscitation of 6 L NS, did achieve adequate CVP, still required norepinephrine. Today receiving packed red blood cells, still on norepinephrine, though that has been titrated down a bit. Remains sedated with propofol on ventilator. Plan to go back to the OR Thursday for washout and possible closure. June 16 Patient remained stable, ventilated and sedated. Remains on some Levophed for blood pressure support. Diuresed well with 40 mg of furosemide yesterday. Still with significant thigh and arm edema. Right pleural effusion on radiograph today, though infiltrates/atelectasis improves. Arterial line started to dampen and not function overnight, was removed. June 17 Patient now postop after planned second look exploratory laparotomy. No evidence of intra-abdominal abscess, final closure performed. Some increased airway pressures postoperatively, had been bagged on the way back to the ICU, which may explain some of her airway pressures and an increase in FiO2, seemed to be improving as the afternoon progresses. Nonpitting edema, urine output is adequate but not brisk, on 100 mils an hour fluid. Still on TPN. Still requiring some NE for BP support. June 18 Norepinephrine weaned off overnight. Remains significantly volume long. During wake up trial this morning, became tachypnea can airway pressures went up , did withdrawal from lower extremity stimuli, but did not open eyes to voice or respond upper extremity stimulus. Had to be re-sedated before this could happen due to her status. Chest x-ray showing some worsening congestion. Between TPN, drips and IV fluids containing almost 200 mL an hour. Will DC maintenance fluids, continuous TPN and drips, give furosemide today. We'll also add fentanyl infusion for baseline pain control in the postoperative state. Also on propofol for sedation. June 19: Patient seen examined, off pressors [facility]. labs reviewed , worsening leucocytosis today at 16.3, CXR shows patient has bibasilar infiltrates. The patient was weaned off sedation this AM she opened eyes but did not follow commands, She became tachypenic and tachycardic, on wean trial. Pt TV was increased overnight by RT, changed back to 360 this AM repeat ABG to be done in 30 mins. Vancomycin was added yesterday in light of pulmonary infiltrates, Vent parameters AC mode, TV 360 (was 420 in AM), RR 16, Fio2 40, PEEP 5. Peak pressure 26-28, Plat 19-23, I/0 Pt was negative 1225 yesterday. sedation: propofol and fentanyl Diet TPN Riggs in place Right SC in place for central venous access June 20 Patient seen exmined, sedated on vent, Sedation was held this AM, and patient mental status improved, she was better than yesterday, did follow some commands. Placed on pressure support of 7, but became tachycardic and tachypenic after sometime. placed back on AC mode Her wbc is creeping up, we tried to change antibiotics from zosyn to carbapenum , but we are in short supply at this time. Xray done this AM shows significant worsening in her infiltrtes, chf vs ards Vent parameters AC mode TV 360, RR 12 (set), PEEP 5, Fio2 40, Plat 18-24, Peak 25-28 ABG 7.42/45/83 Lact 0.5 Patient responding well to diuresis, was neg 3L yesterday. June 21 Aly wheeler examined no acute overnight issues X ray stable today ABG stable, ph 7.45/45/79, Vent setting unchanged. Peak pressure 25, plat 22 WBC imprving on albumin and lasix bid for gen edema/ ards/ chf off propofol for today to see how she does with her mental status only on fenanyl, mental status much better, able to follow commands and nod to some questions. Plan of care reviewed with the patients daugther June 22 patien seen examined, good mental status off sedatives, following commands She did well on weaning parameters for extubation, vasyl index < 105, SBT on 7 SP was well tolerated with good tidal volues pt extubated this AM, however was short of breath on extubation, She was given duonebs and palced on bipap. The aptient repeat abg was good, x ray showed pulmonary congestion. IV lasix and bipap continued. She is obeying c ommands. for now Sputum cx is suggestive of pseudomonas. d/c vanco, IV cipro added. continue zosyn. wbc mildy uptrended today but pt was on steroids June 23: patient seen examined, no acute overnight issues patient this AM is off bipap and is able on 6L oxygen, still has some shortness of breath ABG showed metabolic alkalosis Continue IV lasixi for diuresis, pt was neg 2.5 L yesterday still has positive 2.5L since admission. Mental status much better able to communicate well On iv zosyn and cipro and flagyl wbc trended down today Pertinent ROS: Denies headache, dizziness Denies chest pain, palpitations Denies cough or shortness of breath has some back pain and abdominal pain. - Constitutional Vitals: Vital Signs Temp Pulse Resp BP Pulse Ox 98.0 F 80 18 108/61 95 06/23/17 08:01 06/23/17 12:14 06/23/17 12:14 06/23/17 11:01 06/23/17 11:01 Period Temp Pulse Resp BP Sys/[place] Pulse Ox Last 24 Hr 98.0 F-99.5 F 55-98 - 98-139/53-87 91-98 Intake and Output 06/22/17 06/23/17 06/23/17 21:59 05:59 13:59 Intake Total 350 / 350 565 / 565 1360.3435 / 1360.3435 Output Total 2395 / 2395 950 / 950 1610 / 1610 Balance -2045 / -2045 -385 / -385 -249.6565 / -249.6565 Weight 168 lb 8 oz Intake & Output: Intake & Output 06/22/17 06/23/17 06/23/17 21:59 05:59 13:59 Intake Total 350 / 350 565 / 565 1360.3435 / 1360.3435 Output Total 2395 / 2395 950 / 950 1610 / 1610 Balance -2044 -385 / -385 -249.6565 / -249.6565 Weight 168 lb 8 oz Intake: IV 350 / 350 550 / 550 1360.3435 / 1360.3435 Sodium Chloride 0.9% 250 ml @ 0 / 0 20 mls/hr IV .[id number] KRISS Rx#: [id number] Calcium Gluconate 5 Meq 1060.3435 / 1060.3435 Magnesium Sulfate 16.24 Meq Sodium Chloride 20 Meq Potassium Phosphate 40 Meq Infuvite Adult 10 ml Selenium 60 Mcg Potassium Chloride 20 Meq Sodium Acetate 20 Meq In Clinimix 5%-20% Solution 1,000 ml @ 50 mls/hr IV Q21H KRISS Rx#: [id number] Intralipid 20% 250 ml In Premix 250 / 250 1 Bag @ 25 mls/hr IV MoWeFr@ 1600 KRISS Rx#:[id number] Zosyn 3.375 gm In Sodium 50 / 50 100 / 100 Chloride 0.9% 50 ml @ 100 mls/ hr IV Q6H KRISS Rx#:[id number] Diprivan 1,000 mg In Premix 1 0 / 0 Bag @ 5 MCG/KG/MIN 2.42 mls/hr IV .Q24H PRN Rx#:[id number] fentaNYL 2,500 MCG In Sodium 0 / 0 Chloride 0.9% 200 ml @ 0.7 MCG/ KG/HR 5.83 mls/hr IV Q24H KRISS Rx#:[id number] Oral Output: Drainage 85 / 85 60 / 60 RIDDHI 'A' RIDDHI 'B' RIDDHI 'C' RIDDHI 'D' RIDDHI 'E' RIDDHI 'F' 45 / 45 30 / 30 Urine Catheter Amount 2039 890 / 890 1610 / 1610 Void Amount 220 / 220 Stool 50 / 50 Exam: Constitutional; Afebrile, cooperative, alert, not in distress. Eyes- No icterus, , No periorbital swelling Ears- Ext ear normal, hearing normal to conversation. Neck- Midline trachea, supple Respiratory system: Air Entry equal on both sides, mild basilar crackles, no exp wheeze noted. CVS- Rate rhythm regular, S1,S2 heard, no gallop, no rub. Abdomen- Soft J tubes in place [employer]- AOOx3, moving all extremities, no gross focal deficit noted. overall is weak Medical - PN: Obj Da - Labs CBC & Chem 7: 06/23/17 03:40 06/23/17 03:40 Labs: Abnormal Lab Results 06/23/17 06/23/17 06/22/17 03:40 03:40 04:00 WBC 13.3 H RBC 3.46 L Hgb 9.3 L Hct 28.2 L RDW 17.1 H Seg Neutrophils % 87 H Lymphocytes % 2 L Myelocytes % RBC Morphology Abnorm A Anisocytosis 1+ A RBC Fragments Occ A Carbon Dioxide 37 H 33 H BUN 27 H 27 H Creatinine 0.5 L 0.5 L Glucose 175 H 206 H Uric Acid 2.4 L 2.4 L Calcium 8.5 L 8.3 L Phosphorus 2.5 L GGT 68 H 59 H Total Protein 5.1 L 4.9 L Albumin 2.7 L 3.0 L Globulin 1.9 L Albumin/Globulin Ratio Prealbumin 06/22/17 06/21/17 06/21/17 04:00 04:00 04:00 WBC 14.0 H RBC 3.44 L 3.26 L Hgb 9.1 L 8.7 L Hct 28.0 L 26.6 L RDW 17.9 H 17.7 H Seg Neutrophils % 91 H 85 H Lymphocytes % 1 L 3 L Myelocytes % 3 H RBC Morphology Abnorm A Abnorm A Anisocytosis 2+ A 2+ A RBC Fragments Occ A Carbon Dioxide BUN 25 H Creatinine Glucose 146 H Uric Acid 2.1 L Calcium 7.9 L Phosphorus GGT 51 H Total Protein 4.3 L Albumin 2.0 L Globulin Albumin/Globulin Ratio 0.9 L Prealbumin 11.2 L Meds: Medications Acetaminophen (Tylenol) 650 mg PO Q6HP PRN PRN Reason: PAIN/FEVER > 101 Albuterol/Ipratropium (Duoneb) 3 ml NEB Q4HRT [facility]ISS Last Admin: 06/23/17 11:56 Dose: 3 ml Albuterol/Ipratropium (Duoneb) 3 ml NEB Q4HP PRN PRN Reason: Shortness Of Breath Or Wheezing Last Admin: 06/22/17 11:05 Dose: 3 ml Artificial Tears (Artificial Tears Ophth Drops) 1 gtt OD QIDP PRN PRN Reason: Dry Eye(s) Last Admin: 06/20/17 13:10 Dose: 1 gtt Chlorhexidine Gluconate (Peridex) 15 ml SWABMOUTH BID KRISS Last Admin: 06/23/17 09:20 Dose: 15 ml Dextrose (Dextrose 50%) 25 ml IV UD PRN PRN Reason: Hypoglycemia Dextrose (Dextrose 50%) 0 ml IV UD PRN PRN Reason: Hypoglycemia Diagnostic Test (Pha) (Accu-Chek) 1 each FS Q6 [facility]ISS Last Admin: 06/23/17 07:57 Dose: 1 each Furosemide (Lasix) 60 mg IV Q12 [facility] Last Admin: 06/23/17 09:04 Dose: Not Given Heparin Sodium (Porcine) (Heparin) 5,000 unit SQ Q12 [facility]ISS Last Admin: 06/23/17 10:09 Dose: 5,000 unit Hydromorphone HCl (Dilaudid) 0.5 mg IV Q1HP PRN PRN Reason: Pain Last Admin: 06/23/17 11:46 Dose: 0.5 mg Fat Emulsion Intravenous 250 (ml/ Premix) 250 mls @ 25 mls/hr IV MoWeFr@1600 [facility] Last Infusion: 06/23/17 02:30 Dose: Infused Metronidazole (Flagyl) 500 mg in 100 mls @ 100 mls/hr IV Q6H [facility] Last Infusion: 06/23/17 05:50 Dose: Infused Acetaminophen (Ofirmev) 1,000 mg in 100 mls @ 200 mls/hr IV Q6HP PRN PRN Reason: PAIN/FEVER > 101 Last Infusion: 06/23/17 08:57 Dose: Infused Piperacillin Sod/Tazobactam (Sod 3.375 gm/ Sodium Chloride) 50 mls @ 100 mls/ hr IV Q6H [facility] Last Admin: 06/23/17 12:10 Dose: 100 mls/hr Norepinephrine Bitartrate 16 (mg/ Sodium Chloride) 250 mls @ 9.37 mls/hr IV Q24HP PRN; Protocol; 10 MCG/MIN PRN Reason: TITRATE TO KEEP MAP > 65 Ciprofloxacin (Cipro) 400 mg in 200 mls @ 200 mls/hr IV Q12H [facility] Last Infusion: 06/23/17 10:39 Dose: Infused Calcium Gluconate 5 meq/Magnesium Sulfate 16.24 meq/Sodium Chloride 20 meq/ Potassium Phosphate 60 meq/Multivitamins/Minerals 10 ml/Selenium 60 mcg/ Potassium Chloride 30 meq/ Amino Acids 1,059.889 mls @ 50 mls/hr IV Q21H [facility] Insulin Human Lispro (Humalog) 0 unit SQ Q6 [facility] PRN Reason: Protocol Last Admin: 06/23/17 07:45 Dose: Not Given Lorazepam (Ativan) 1 mg IV Q4-6HP PRN PRN Reason: ANXIETY/SEDATION Last Admin: 06/23/17 04:48 Dose: 1 mg Methylprednisolone Sodium Succinate (Solu-Medrol) 62.5 mg IV Q6 [facility] Last Admin: 06/23/17 12:15 Dose: 62.5 mg Ondansetron HCl (Zofran) 4 mg IV Q6HP PRN PRN Reason: Nausea And Vomiting Pantoprazole Sodium (Protonix) 40 mg IV BIDAC [facility] Last Admin: 06/23/17 07:56 Dose: 40 mg Sodium Chloride (Saline Flush) 10 ml IV UD PRN PRN Reason: medication Sodium Chloride (Saline Flush) 10 ml IV Q8 [facility] Last Admin: 06/23/17 09:09 Dose: 10 ml Medical - PN: A/P - Time Spent With Patient Total time spent is greater than 50% in coordination of care (as documented) at patient's floor/unit and/or counseling patient: - Narrative A/P Narrative: 77-year-old female without GI illness (though in retrospect has had diverticulitis in past) presents with abdominal pain, nausea and vomiting. Also has urinary tract infection. Evolution of distal colonic obstruction, subsequently went to the operating room on 06/14, resection of sigmoid mass, a contained perforation of transverse colon and spontaneous rupture of right colon intraoperatively. Acute diverticulitis. . Postop day # 9 , status post exploratory laparotomy, hemicolectomy with ileostomy, Clark's procedure with mucous fistula. Now Post-op day #6 from re- look and delayed closure. Plan: management Per surgery, continue Zosyn and metronidazole, add basal fentanyl for postoperative analgesia. HCAP PNA: Pseudomonas likely on sputum cx, add cipro ,stop vanco, continue on zosyn for GI, Acute respiratory failure : ARDS vs CHF Vs PNA Post extubation day 1 on NC 6L now, prn bipap if gets sob. xray chest much better this AM, Asthma: on duonebs q4hrs , on IV solumedrol, justin exp wheezing improved Malnutrition on TPN, will contiue same for now, consider enteral feeds when patient is more stable. Hypokalemia / Hypomanesemia. replace as needed Anemia: likely related to underlying infection, monitor for now, hb stable. CODE STATUS, discussed with the patient at admission, is DNR Prophylaxis: Protonix, SCD's hep sq Critical care time spent > 35 mins in monitoring abg, x ray, antibiotics, nutrion, mnagement of vent . Procedures - Arterial Line Size (Gauge): 20
--- NOTE | 2017-06-23 14:27 | General Surgery Progress Note ---
Subjective Patient reports: feels better, flatus, bowel movement, shortness of breath, afebrile Narrative: Note initiated : 06/23/17 at 2:25 pm Service Date, if different from initiated Date: [] Patient: Caroline Bellamy 77 y/o F admitted on 06/12/17 for N/V, UTI, Constipation/Colon Obstruction, UTI. Chief Complaint: [Patient is doing much better. She had a very vigorous diuresis last evening and had negative for 2.5 L of urine output. Her overall anasarca is much improved. Her respiratory effort is also much improved and she was able to be off BiPAP today with maintenance of good oxygen saturations. She has good output through her stoma. Her RIDDHI drains were all discontinued. Her pulmonary infiltrates and pleural effusion have also significantly improved. ] Objective Temp Pulse Resp BP Pulse Ox 98.3 F 87 21 111/65 97 06/23/17 12:01 06/23/17 13:01 06/23/17 13:01 06/23/17 13:01 06/23/17 13:01 - Additional Data Intake & Output - Last 24 hours: Intake & Output 06/21/17 06/22/17 06/23/17 06/24/17 05:59 05:59 05:59 05:59 Intake Total 2415.889 / 2415.889 2814 / 2814 3047.3435 / 3047.3435 1360.3435 / 1360.3435 Output Total 4450 / 4450 5270 / 5270 5550 / 5550 2303 / 2303 Balance -2034.111 / -2034.111 -2456 / -2456 -2502.6565 / -2502.6565 -942.6565 / -942.6565 Weight 179 lb 8 oz 174 lb 8 oz 168 lb 8 oz - General physical appearance moderate distress, moderate pain - Eyes PERRL - ENT no congestion, dentures - Neck no masses, no venous distension - Respiratory other (Much improved ventilation with decreasing rhonchi and much better air movement in all lung alves) - Cardiovascular Cardiovascular exam: Present: +S1, +S2, tachycardia - Abdomen soft, non tender (The abdomen is nondistended she has good active bowel sounds. Her incision looks good; the 6 RIDDHI drains were removed. Both of her stomas are healthy) - Integumentary no rash, no growths, no abnormal pigmentation - Neurologic other (Much improved overall generalized strength in upper and lower extremities ) - Psychiatric oriented to time, oriented to person, oriented to place, speech is normal, memory intact - Labs 06/23/17 03:40 06/23/17 03:40 Diabetes panel 06/23/17 Range/Units 03:40 Sodium 141 (133-145) mmol/L Potassium 3.8 (3.3-5.1) mmol/L Chloride 96 (96-108) mmol/L Carbon Dioxide 37 H (22-30) mmol/L BUN 27 H (8-23) mg/dl Creatinine 0.5 L (0.6-1.1) mg/dl Glucose 175 H (70-105) mg/dL Calcium 8.5 L (8.6-10.4) mg/dl AST 11 (0-37) U/l ALT 11 (0-40) U/l Alkaline Phosphatase 50 (39-117) U/L Total Protein 5.1 L (5.9-8.4) gm/dL Albumin 2.7 L (3.2-5.2) gm/dL Triglycerides 54 (<150) mg/dl Calcium panel 06/23/17 Range/Units 03:40 Calcium 8.5 L (8.6-10.4) mg/dl Phosphorus 2.5 L (2.7-4.5) mg/dL Albumin 2.7 L (3.2-5.2) gm/dL Pituitary panel 06/23/17 Range/Units 03:40 Sodium 141 (133-145) mmol/L Potassium 3.8 (3.3-5.1) mmol/L Chloride 96 (96-108) mmol/L Carbon Dioxide 37 H (22-30) mmol/L BUN 27 H (8-23) mg/dl Creatinine 0.5 L (0.6-1.1) mg/dl Glucose 175 H (70-105) mg/dL Calcium 8.5 L (8.6-10.4) mg/dl Adrenal panel 06/23/17 Range/Units 03:40 Sodium 141 (133-145) mmol/L Potassium 3.8 (3.3-5.1) mmol/L Chloride 96 (96-108) mmol/L Carbon Dioxide 37 H (22-30) mmol/L BUN 27 H (8-23) mg/dl Creatinine 0.5 L (0.6-1.1) mg/dl Glucose 175 H (70-105) mg/dL Calcium 8.5 L (8.6-10.4) mg/dl Total Bilirubin 0.3 (0.0-1.0) mg/dL AST 11 (0-37) U/l ALT 11 (0-40) U/l Alkaline Phosphatase 50 (39-117) U/L Total Protein 5.1 L (5.9-8.4) gm/dL Albumin 2.7 L (3.2-5.2) gm/dL Assessment and Plan (1) Colon obstruction Problem details: Mass in sigmoid, resected 06/14/2017-diverticulitis Status: Acute Assessment and plan: general status is much improved and respiratory status is 100% better than on yesterday Current Visit: Yes (2) Anemia Status: Acute Assessment and plan: she has stable hgb over the past 24 hr Current Visit: Yes (3) UTI due to Klebsiella species Status: Acute Current Visit: Yes - Time Spent With Patient Total time spent is greater than 50% in coordination of care (as documented) at patient's floor/unit and/or counseling patient:
[2017-06-23] MEDS: FAT EMULSION 20% 250 ML in PREMIX 1 BAG IV SCH (16:50)
[2017-06-24] MEDS: PIPERACILLIN SODIUM/TAZOBACTAM 3.375 GM in 0.9 % SODIUM CHLORIDE 50 ML IV SCH ×4 (00:02→18:25)
[2017-06-24] MEDS: HYDROmorphone 2 MG/ML SYRINGE IV PRN ×7 (00:37→22:30)
[2017-06-24] MEDS: 0.9 % SODIUM CHLORIDE 10 ML SYRINGE IV SCH ×6 (00:38→21:36)
[2017-06-24] MEDS: IPRATROPIUM/ALBUTEROL 3 ML AMPUL.NEB NEB SCH ×6 (02:49→23:29)
[2017-06-24] MEDS: metroNIDAZOLE 500 MG/100 ML BAG IV SCH ×4 (04:59→23:25)
[2017-06-24 05:14] LABS: Mean Cell Volume 80.6 fL (80.0-100.0); Mean Corpuscular HGB Conc 32.4 g/dL (31.0-36.0); Mean Corpuscular Hemoglobin 26.2 pg (26.0-34.0); Platelet Count 472 K/mcL (140-440); RBC 3.49 M/mcL (4.00-5.20); Red Cell Distribution Width 17.2 % (11.5-14.5)
[2017-06-24] MEDS: methylPREDNISolone SOD SUCC 125 MG/2 ML VIAL IV SCH ×3 (05:36→14:31)
[2017-06-24 05:46] LABS: ALT/SGPT 11 U/l (0-40); Albumin 2.7 gm/dL (3.2-5.2); Albumin/Globulin Ratio 1.2 (1.0-2.3); Alkaline Phosphatase 50 U/L (39-117); Bilirubin,Direct < 0.2 mg/dL (0.0-0.3); Blood Urea Nitrogen 30 mg/dl (8-23); Gamma Glutamyl Transpeptidase 78 U/L (5-36); Magnesium 2.4 mg/dL (1.6-2.5); Uric Acid 2.4 mg/dL (2.5-8.0)
[2017-06-24] MEDS: INSULIN LISPRO 1 UNIT/0.01 ML UNIT SQ SCH ×4 (05:55→17:19)
[2017-06-24] MEDS ORDERED: POTASSIUM CHLORIDE 40 MEQ in DEXTROSE 5% IN WATER 250 ML IV ONE (07:00)
[2017-06-24] MEDS: CALCIUM GLUCONATE 5 MEQ, MAGNESIUM SULFATE 16.24 MEQ, SODIUM CHLORIDE 20 MEQ, POTASSIUM... IV SCH (07:06)
--- NOTE | 2017-06-24 08:27 | XRay Report ---
HISTORY: Reason for Exam:congestive heart failure, shortness of beath FINDINGS: There are bilateral pulmonary infiltrates, predominantly in the lower lobes and around the marlene. The consolidation has become worse bilaterally since yesterday. The pulmonary vessels are also more gorged. The heart is borderline enlarged and has increased in size. . IMPRESSION: Worsening bilateral infiltrates which may be a combination of pulmonary edema, atelectasis and pneumonia. Interpreted and Authenticated by: Varghese Reich 06/24/17
[2017-06-24] MEDS: PANTOPRAZOLE 40 MG VIAL IV SCH ×2 (09:04→17:13)
[2017-06-24] MEDS: FLUCONAZOLE 100 MG TABLET PO SCH (09:06)
[2017-06-24] MEDS: CIPROFLOXACIN 400 MG/200 ML BAG IV SCH ×2 (09:06→21:32)
[2017-06-24] MEDS: HEPARIN 5,000 UNIT/ML VIAL SQ SCH ×2 (09:06→21:32)
[2017-06-24] MEDS: FUROSEMIDE 20 MG/2 ML VIAL IV SCH ×2 (09:07→21:32)
[2017-06-24] MEDS ORDERED: ALTEPLASE 2 MG VIAL IV ONE (10:50)
[2017-06-24] MEDS: fentaNYL 2,500 MCG in 0.9 % SODIUM CHLORIDE 200 ML IV SCH (10:59)
[2017-06-24] MEDS: 0.9 % SODIUM CHLORIDE 250 ML IV SCH (10:59)
[2017-06-24 11:03] LABS: Band Neutrophils % 2 % (0-10); Lymphocytes % 2 % (15-49); Monocytes % (Manual) 3 % (1-12); Platelet Estimate INCREASED (NORMAL); RBC Morphology NORMAL (NORMAL); Segmented Neutrophils % 93 % (38-78)
--- NOTE | 2017-06-24 11:36 | General Surgery Progress Note ---
Subjective Patient reports: feels better, tolerating liquids well, flatus, bowel movement, afebrile Narrative: Note initiated : 06/24/17 at 11:34 am Service Date, if different from initiated Date: [] Patient: Caroline Bellamy 77 y/o F admitted on 06/12/17 for N/V, UTI, Constipation/Colon Obstruction, UTI. Chief Complaint: [.] Patient continues to improve. She is more alert and is fully aware. She has appropriate questions. Her overall strength is improved. She was started on thickened pured diet without any difficulty. Her respiratory status is much improved though her chest x-ray shows a worsening pattern with increased central venous congestion and interstitial edema with areas of patchy atelectasis or infiltrate.. Objective Temp Pulse Resp BP Pulse Ox 97.4 F 73 18 97/57 98 06/24/17 08:01 06/24/17 10:01 06/24/17 07:14 06/24/17 10:01 06/24/17 10:01 - Additional Data Intake & Output - Last 24 hours: Intake & Output 06/22/17 06/23/17 06/24/17 06/25/17 05:59 05:59 05:59 05:59 Intake Total 2814 / 2814 3047.3435 / 3047.3435 1850.3435 / 1850.3435 1540.3435 / 1540.3435 Output Total 5270 / 5270 5550 / 5550 6467 / 6467 645 / 645 Balance -2456 / -2456 -2502.6565 / -2502.6565 -4616.6565 / -4616.6565 895.3435 / 895.3435 Weight 174 lb 8 oz 168 lb 8 oz 163 lb - General physical appearance no distress, chronically ill - Eyes PERRL - ENT no congestion - Neck no masses, no venous distension - Respiratory other (Coarse tubular breath sounds bilaterally with decreased breath sounds in the bases and in the dependent portion of lung) - Cardiovascular Cardiovascular exam: Present: irregular rhythm, +S1, +S2, tachycardia - Abdomen soft, non tender, bowel sounds (Good active bowel sounds without distention; both stomas look good) - Integumentary no rash, no growths, no abnormal pigmentation - Neurologic other (Improved overall motor strength in upper and lower extremities) - Musculoskeletal other (Bedridden with movement of extremities) - Psychiatric oriented to time, oriented to person, oriented to place, speech is normal, memory intact - Labs 06/24/17 04:00 06/24/17 04:00 Diabetes panel 06/24/17 Range/Units 04:00 Sodium 136 (133-145) mmol/L Potassium 3.5 (3.3-5.1) mmol/L Chloride 98 (96-108) mmol/L Carbon Dioxide 31 H (22-30) mmol/L BUN 30 H (8-23) mg/dl Creatinine 0.5 L (0.6-1.1) mg/dl Glucose 179 H (70-105) mg/dL Calcium 8.4 L (8.6-10.4) mg/dl AST 10 (0-37) U/l ALT 11 (0-40) U/l Alkaline Phosphatase 50 (39-117) U/L Total Protein 4.9 L (5.9-8.4) gm/dL Albumin 2.7 L (3.2-5.2) gm/dL Triglycerides 67 (<150) mg/dl Calcium panel 06/24/17 Range/Units 04:00 Calcium 8.4 L (8.6-10.4) mg/dl Phosphorus 3.2 (2.7-4.5) mg/dL Albumin 2.7 L (3.2-5.2) gm/dL Pituitary panel 06/24/17 Range/Units 04:00 Sodium 136 (133-145) mmol/L Potassium 3.5 (3.3-5.1) mmol/L Chloride 98 (96-108) mmol/L Carbon Dioxide 31 H (22-30) mmol/L BUN 30 H (8-23) mg/dl Creatinine 0.5 L (0.6-1.1) mg/dl Glucose 179 H (70-105) mg/dL Calcium 8.4 L (8.6-10.4) mg/dl Adrenal panel 06/24/17 Range/Units 04:00 Sodium 136 (133-145) mmol/L Potassium 3.5 (3.3-5.1) mmol/L Chloride 98 (96-108) mmol/L Carbon Dioxide 31 H (22-30) mmol/L BUN 30 H (8-23) mg/dl Creatinine 0.5 L (0.6-1.1) mg/dl Glucose 179 H (70-105) mg/dL Calcium 8.4 L (8.6-10.4) mg/dl Total Bilirubin 0.2 (0.0-1.0) mg/dL AST 10 (0-37) U/l ALT 11 (0-40) U/l Alkaline Phosphatase 50 (39-117) U/L Total Protein 4.9 L (5.9-8.4) gm/dL Albumin 2.7 L (3.2-5.2) gm/dL Assessment and Plan (1) Colon obstruction Problem details: Mass in sigmoid, resected 06/14/2017-diverticulitis Status: Acute Assessment and plan: general status is much improved and respiratory status is better than on yesterday Current Visit: Yes (2) Anemia Status: Acute Assessment and plan: she has stable hgb over the past 24 hr Current Visit: Yes (3) UTI due to Klebsiella species Status: Resolved Assessment and plan: Resolved Current Visit: Yes - Time Spent With Patient Total time spent is greater than 50% in coordination of care (as documented) at patient's floor/unit and/or counseling patient:
[2017-06-24] MEDS: FAT EMULSION 20% 250 ML in PREMIX 1 BAG IV SCH (15:09)
[2017-06-24] MEDS: 0.9 % SODIUM CHLORIDE 10 ML SYRINGE IV PRN (15:10)
[2017-06-24] MEDS: CHLORHEXIDINE GLUCONATE 1 ML ORAL.SOL SWABMOUTH SCH ×2 (17:12→21:33)
--- NOTE | 2017-06-24 17:42 | Internal Med Progress Note ---
Medical - PN: Subj Patient information: Note initiated : 06/24/17 at 5:39 pm Service Date, if different from initiated Date: [] Patient: Caroline Bellamy a 77 y/o F admitted on 06/12/17 for N/V, UTI, Constipation/Colon Obstruction, UTI. Chief Complaint: [] Interval history: June 12 Ms. Adiel Cardoso is a 77 year old F who presents to the ED with ongoing complaints of abdominal pain. Patient awoke last Thursday with abdominal pain. She was also nauseated. She was seen in the emergency department due to ongoing symptoms on Thursday, 06/08. CT scan at that time showed some colonic thickening and wall edema without significant inflammatory changes. There was also diverticulosis. She had evidence of urinary tract infection and was started on Septra. Patient remained nauseated and was unable to take the Septra. She continued to have significant abdominal pain, up to 06/09. On the day following her ED visit , she was nauseated and was unable to keep anything down. She presented back to the emergency department, had Bactrim stopped and was changed over to ciprofloxacin. Neither the patient nor her family were aware that a new prescription of been generated and it was never picked up. On Thursday and she continued to have vomiting which was without blood. She continued to have significant abdominal pain up to "08/09". She presents back to the emergency department today because of ongoing abdominal pain, nausea and vomiting. With the onset of the pain a week ago, the pain was severe and was in the left lower quadrant, changing over to the right lower quadrant and becoming generalized as last week has progressed. She describes the quality of the pain is constant and aching with intermittent bouts of stabbing pain. Associated with nausea, vomiting without hematemesis. She has hydrocodone prescription for chronic back pain, that has helped her pain somewhat, though she has had some difficulty keeping medications down. She tried an oral Zofran, was able to keep one done yesterday, but not today. June 13 She is still complaining of significant abdominal pain, more so on the right side from the right upper and right lower quadrant. Tolerating clears, nausea has improved, no ecchymosis. She did have one small hard bowel movement, then to softer ones. She did receive bisacodyl rectally, also oral milk of magnesia and senna last evening. No fever, no chills. No significant dyspnea, has used 1 as needed nebulizer therapy. CT of the abdomen and pelvis was obtained due to ongoing pain. Spoke with radiology, films reviewed, she has dilated colon, ascending, transverse, descending with a transition point in the sigmoid where it decompresses. No pericolonic inflammatory changes, no mural thickening. Patient currently undergoing delayed images to see if there is passage of contrast. June 14 Still complaining of abdominal pain. Had some desaturation overnight, on oxygen. Received dose of furosemide earlier today. Still requiring regular Dilaudid today, though when I see her this morning the interval between when necessary doses has increased somewhat. Final results of CTAP yesterday without passage of contrast. I discussed the case with Dr. Eubanks last evening, he is seeing the patient today , plans to take to the operating room. Her white count was increased to 22,000 today. Ceftriaxone changed to Zosyn this morning. June 15 Patient currently in the intensive care unit following surgery yesterday. Had inflammatory mass causing sigmoid obstruction. Subsequently had rupture of right colon intraoperatively, necessitating colectomy and washout. 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 Wound is being packed open. Overnight patient received fluid resuscitation of 6 L NS, did achieve adequate CVP, still required norepinephrine. Today receiving packed red blood cells, still on norepinephrine, though that has been titrated down a bit. Remains sedated with propofol on ventilator. Plan to go back to the OR Thursday for washout and possible closure. June 16 Patient remained stable, ventilated and sedated. Remains on some Levophed for blood pressure support. Diuresed well with 40 mg of furosemide yesterday. Still with significant thigh and arm edema. Right pleural effusion on radiograph today, though infiltrates/atelectasis improves. Arterial line started to dampen and not function overnight, was removed. June 17 Patient now postop after planned second look exploratory laparotomy. No evidence of intra-abdominal abscess, final closure performed. Some increased airway pressures postoperatively, had been bagged on the way back to the ICU, which may explain some of her airway pressures and an increase in FiO2, seemed to be improving as the afternoon progresses. Nonpitting edema, urine output is adequate but not brisk, on 100 mils an hour fluid. Still on TPN. Still requiring some NE for BP support. June 18 Norepinephrine weaned off overnight. Remains significantly volume long. During wake up trial this morning, became tachypnea can airway pressures went up , did withdrawal from lower extremity stimuli, but did not open eyes to voice or respond upper extremity stimulus. Had to be re-sedated before this could happen due to her status. Chest x-ray showing some worsening congestion. Between TPN, drips and IV fluids containing almost 200 mL an hour. Will DC maintenance fluids, continuous TPN and drips, give furosemide today. We'll also add fentanyl infusion for baseline pain control in the postoperative state. Also on propofol for sedation. June 19: Patient seen examined, [facility] labs reviewed , worsening leucocytosis today at 16.3, CXR shows patient has bibasilar infiltrates. The patient was weaned off sedation this AM she opened eyes but did not follow commands, She became tachypenic and tachycardic, on wean trial. Pt TV was increased overnight by RT, changed back to 360 this AM repeat ABG to be done in 30 mins. Vancomycin was added yesterday in light of pulmonary infiltrates, Vent parameters AC mode, TV 360 (was 420 in AM), RR 16, Fio2 40, PEEP 5. Peak pressure 26-28, Plat 19-23, I/0 Pt was negative 1225 yesterday. sedation: propofol and fentanyl Diet TPN Riggs in place Right SC in place for central venous access June 20 Patient seen exmined, sedated on vent, Sedation was held this AM, and patient mental status improved, she was better than yesterday, did follow some commands. Placed on pressure support of 7, but became tachycardic and tachypenic after sometime. placed back on AC mode Her wbc is creeping up, we tried to change antibiotics from zosyn to carbapenum , but we are in short supply at this time. Xray done this AM shows significant worsening in her infiltrtes, chf vs ards Vent parameters AC mode TV 360, RR 12 (set), PEEP 5, Fio2 40, Plat 18-24, Peak 25-28 ABG 7.42/45/83 Lact 0.5 Patient responding well to diuresis, was neg 3L yesterday. June 21 Aly wheeler examined no acute overnight issues X ray stable today ABG stable, ph 7.45/45/79, Vent setting unchanged. Peak pressure 25, plat 22 WBC imprving on albumin and lasix bid for gen edema/ ards/ chf off propofol for today to see how she does with her mental status only on fenanyl, mental status much better, able to follow commands and nod to some questions. Plan of care reviewed with the patients daugther June 22 patien seen examined, good mental status off sedatives, following commands She did well on weaning parameters for extubation, vasyl index < 105, SBT on 7 SP was well tolerated with good tidal volues pt extubated this AM, however was short of breath on extubation, She was given duonebs and palced on bipap. The aptient repeat abg was good, x ray showed pulmonary congestion. IV lasix and bipap continued. She is obeying c ommands. for now Sputum cx is suggestive of pseudomonas. d/c vanco, IV cipro added. continue zosyn. wbc mildy uptrended today but pt was on steroids June 23: patient seen examined, no acute overnight issues patient this AM is off bipap and is able on 6L oxygen, still has some shortness of breath ABG showed metabolic alkalosis Continue IV lasixi for diuresis, pt was neg 2.5 L yesterday still has positive 2.5L since admission. Mental status much better able to communicate well On iv zosyn and cipro and flagyl wbc trended down today June 24 Patient seen examined no acute overnight issues patient was on bipap overnight, and is back on nasal canula, bipap used to give some support and help her relax patient is neg now since admission, dose of lasix cut down to 20mg bid, to ensure that she does not get fluid overloaded with her tpn and other fluids resume oral diet as tolerated CXR shows slight worsening of congetion overall we seem to be making good progress Pertinent ROS: Denies headache, dizziness Denies chest pain, palpitations Denies cough or shortness of breath Denies abdominal pain, nausea or vomiting. - Constitutional Vitals: Vital Signs Temp Pulse Resp BP Pulse Ox 98.6 F 78 16 125/65 97 06/24/17 16:19 06/24/17 16:17 06/24/17 15:00 06/24/17 16:01 06/24/17 16:17 Period Temp Pulse Resp BP Sys/[place] Pulse Ox Last 24 Hr 97.4 F-98.6 F 72-90 14-24 93-141/46-72 90-100 Intake and Output 06/24/17 06/24/17 06/24/17 05:59 13:59 21:59 Intake Total 440 / 440 1540.3435 / 1540.3435 150 / 150 Output Total 2600 / 2600 645 / 645 650 / 650 Balance -2160 / -2160 895.3435 / 895.3435 -500 / -500 Intake & Output: Intake & Output 06/24/17 06/24/17 06/24/17 05:59 13:59 21:59 Intake Total 440 / 440 1540.3435 / 1540.3435 150 / 150 Output Total 2600 / 2600 645 / 645 650 / 650 Balance -2160 / -2160 895.3435 / 895.3435 -500 / -500 Intake: IV 400 / 400 1410.3435 / 1410.3435 150 / 150 Intralipid 20% 250 ml In Premix 250 / 250 1 Bag @ 25 mls/hr IV DAILY@ 1600 [facility] Rx#:[id number] Zosyn 3.375 gm In Sodium 50 / 50 50 / 50 50 / 50 Chloride 0.9% 50 ml @ 100 mls/ hr IV Q6H [facility] Rx#:[id number] Oral 40 / 40 130 / 130 Output: Urine Catheter Amount 2600 / 2600 520 / 520 650 / 650 Void Amount 125 / 125 Other: Meal Lunch Percent of Meal Consumed bites Feeding Ability Total Assistance Exam: Constitutional; Afebrile, cooperative, alert, not in distress. Eyes- No icterus, , No periorbital swelling Ears- Ext ear normal, hearing normal to conversation. Neck- Midline trachea, supple Respiratory system: Air Entry equal on both sides, bibasilar crackles noted. no wheezing. CVS- Rate rhythm regular, S1,S2 heard, no gallop, no rub. Abdomen- Soft nontender abdomen, LUMP ROLLER- AOOx3, moving all extremities, no gross focal deficit noted. Medical - PN: Obj Da - Labs CBC & Chem 7: 06/24/17 04:00 06/24/17 04:00 Labs: Abnormal Lab Results 06/24/17 06/24/17 06/23/17 04:00 04:00 03:40 WBC 13.6 H 13.3 H RBC 3.49 L 3.46 L Hgb 9.1 L 9.3 L Hct 28.1 L 28.2 L RDW 17.2 H 17.1 H Plt Count 472 H Seg Neutrophils % 93 H 87 H Lymphocytes % 2 L 2 L Myelocytes % RBC Morphology Abnorm A Anisocytosis 1+ A RBC Fragments Occ A Carbon Dioxide 31 H Anion Gap 7.0 L BUN 30 H Creatinine 0.5 L Glucose 179 H Uric Acid 2.4 L Calcium 8.4 L Phosphorus GGT 78 H Total Protein 4.9 L Albumin 2.7 L Globulin 06/23/17 06/22/17 06/22/17 03:40 04:00 04:00 WBC 14.0 H RBC 3.44 L Hgb 9.1 L Hct 28.0 L RDW 17.9 H Plt Count Seg Neutrophils % 91 H Lymphocytes % 1 L Myelocytes % 3 H RBC Morphology Abnorm A Anisocytosis 2+ A RBC Fragments Occ A Carbon Dioxide 37 H 33 H Anion Gap BUN 27 H 27 H Creatinine 0.5 L 0.5 L Glucose 175 H 206 H Uric Acid 2.4 L 2.4 L Calcium 8.5 L 8.3 L Phosphorus 2.5 L GGT 68 H 59 H Total Protein 5.1 L 4.9 L Albumin 2.7 L 3.0 L Globulin 1.9 L Meds: Medications Acetaminophen (Tylenol) 650 mg PO Q6HP PRN PRN Reason: PAIN/FEVER > 101 Albuterol/Ipratropium (Duoneb) 3 ml NEB Q4HRT [facility] Last Admin: 06/24/17 15:28 Dose: 3 ml Albuterol/Ipratropium (Duoneb) 3 ml NEB Q4HP PRN PRN Reason: Shortness Of Breath Or Wheezing Last Admin: 06/22/17 11:05 Dose: 3 ml Artificial Tears (Artificial Tears Ophth Drops) 1 gtt OD QIDP PRN PRN Reason: Dry Eye(s) Last Admin: 06/20/17 13:10 Dose: 1 gtt Chlorhexidine Gluconate (Peridex) 15 ml SWABMOUTH BID [facility] Last Admin: 06/24/17 17:12 Dose: 15 ml Dextrose (Dextrose 50%) 25 ml IV UD PRN PRN Reason: Hypoglycemia Dextrose (Dextrose 50%) 0 ml IV UD PRN PRN Reason: Hypoglycemia Diagnostic Test (Pha) (Accu-Chek) 1 each FS Q6 [facility] Last Admin: 06/24/17 17:18 Dose: 1 each Fluconazole (Diflucan) 100 mg PO DAILY [facility] Last Admin: 06/24/17 09:06 Dose: 100 mg Furosemide (Lasix) 20 mg IV Q12 [facility] Last Admin: 06/24/17 09:07 Dose: 20 mg Heparin Sodium (Porcine) (Heparin) 5,000 unit SQ Q12 [facility] Last Admin: 06/24/17 09:06 Dose: 5,000 unit Hydromorphone HCl (Dilaudid) 0.5 mg IV Q1HP PRN PRN Reason: Pain Last Admin: 06/24/17 14:16 Dose: 0.5 mg Metronidazole (Flagyl) 500 mg in 100 mls @ 100 mls/hr IV Q6H [facility] Last Admin: 06/24/17 17:13 Dose: 100 mls/hr Acetaminophen (Ofirmev) 1,000 mg in 100 mls @ 200 mls/hr IV Q6HP PRN PRN Reason: PAIN/FEVER > 101 Last Infusion: 06/23/17 08:57 Dose: Infused Piperacillin Sod/Tazobactam (Sod 3.375 gm/ Sodium Chloride) 50 mls @ 100 mls/ hr IV Q6H [facility] Last Infusion: 06/24/17 15:24 Dose: Infused Norepinephrine Bitartrate 16 (mg/ Sodium Chloride) 250 mls @ 9.37 mls/hr IV Q24HP PRN; Protocol; 10 MCG/MIN PRN Reason: TITRATE TO KEEP MAP > 65 Ciprofloxacin (Cipro) 400 mg in 200 mls @ 200 mls/hr IV Q12H [facility] Last Admin: 06/24/17 09:06 Dose: 200 mls/hr Calcium Gluconate 5 meq/Magnesium Sulfate 16.24 meq/Sodium Chloride 20 meq/ Potassium Phosphate 60 meq/Multivitamins/Minerals 10 ml/Selenium 60 mcg/ Potassium Chloride 30 meq/ Amino Acids 1,059.889 mls @ 50 mls/hr IV Q21H [facility] Stop: 06/25/17 03:59 Last Admin: 06/24/17 07:06 Dose: 50 mls/hr Fat Emulsion Intravenous 250 (ml/ Premix) 250 mls @ 25 mls/hr IV DAILY@1600 [facility] Last Admin: 06/24/17 15:09 Dose: 25 mls/hr Calcium Gluconate 5 meq/Magnesium Sulfate 8.12 meq/Sodium Chloride 40 meq/ Potassium Phosphate 50 meq/Multivitamins/Minerals 10 ml/Selenium 60 mcg/ Potassium Chloride 30 meq/ Amino Acids 1,060.6162 mls @ 50 mls/hr IV Q21H [facility] Insulin Human Lispro (Humalog) 0 unit SQ Q6 [facility] PRN Reason: Protocol Last Admin: 06/24/17 17:19 Dose: Not Given Lorazepam (Ativan) 1 mg IV Q4-6HP PRN PRN Reason: ANXIETY/SEDATION Last Admin: 06/23/17 19:44 Dose: 1 mg Methylprednisolone Sodium Succinate (Solu-Medrol) 62.5 mg IV Q6 [facility] Last Admin: 06/24/17 14:31 Dose: 62.5 mg Ondansetron HCl (Zofran) 4 mg IV Q6HP PRN PRN Reason: Nausea And Vomiting Pantoprazole Sodium (Protonix) 40 mg IV BIDAC [facility] Last Admin: 06/24/17 17:13 Dose: 40 mg Sodium Chloride (Saline Flush) 10 ml IV UD PRN PRN Reason: medication Last Admin: 06/24/17 15:10 Dose: 10 ml Sodium Chloride (Saline Flush) 10 ml IV Q8 [facility] Last Admin: 06/24/17 15:10 Dose: 10 ml Medical - PN: A/P - Time Spent With Patient Total time spent is greater than 50% in coordination of care (as documented) at patient's floor/unit and/or counseling patient: - Narrative A/P Narrative: 77-year-old female without GI illness (though in retrospect has had diverticulitis in past) presents with abdominal pain, nausea and vomiting. Also has urinary tract infection. Evolution of distal colonic obstruction, subsequently went to the operating room on 06/14, resection of sigmoid mass, a contained perforation of transverse colon and spontaneous rupture of right colon intraoperatively. Acute diverticulitis. . Postop day # 10 , status post exploratory laparotomy, hemicolectomy with ileostomy, Clark's procedure with mucous fistula. Now Post-op day #7 from re- look and delayed closure. Plan: management Per surgery, continue Zosyn and metronidazole, add basal fentanyl for postoperative analgesia. HCAP PNA: Pseudomonas likely on sputum cx, add cipro ,stop vanco, continue on zosyn for GI, Acute respiratory failure : ARDS vs CHF Vs PNA Post extubation day 2 on NC 6L now, wean down as tolerated prn bipap if gets sob. clinically follow for now. Asthma: on duonebs q4hrs , on IV solumedrol, justin exp wheezing improved, change iv to po steroids tomorrow. Malnutrition on TPN, will contiue same for now, consider enteral feeds when patient is more stable. Hypokalemia / Hypomanesemia. replace as needed Anemia: likely related to underlying infection, monitor for now, hb stable. CODE STATUS, discussed with the patient at admission, is DNR Prophylaxis: Protonix, SCD's hep sq Critical care time spent > 35 mins in monitoring abg, x ray, antibiotics, nutrion, mnagement of vent . Procedures - Arterial Line Size (Gauge): 20
[2017-06-24] MEDS: LORazepam 2 MG/ML VIAL IV PRN (22:30)
[2017-06-25] MEDS: PIPERACILLIN SODIUM/TAZOBACTAM 3.375 GM in 0.9 % SODIUM CHLORIDE 50 ML IV SCH ×4 (00:06→17:21)
[2017-06-25] MEDS: INSULIN LISPRO 1 UNIT/0.01 ML UNIT SQ SCH ×4 (00:10→17:22)
[2017-06-25] MEDS: IPRATROPIUM/ALBUTEROL 3 ML AMPUL.NEB NEB SCH ×6 (02:56→23:08)
[2017-06-25] MEDS: CALCIUM GLUCONATE 5 MEQ, MAGNESIUM SULFATE 8.12 MEQ, SODIUM CHLORIDE 40 MEQ, POTASSIUM ... IV SCH (04:59)
[2017-06-25] MEDS: CALCIUM GLUCONATE 5 MEQ, MAGNESIUM SULFATE 16.24 MEQ, SODIUM CHLORIDE 20 MEQ, POTASSIUM... IV SCH (05:00)
[2017-06-25] MEDS: metroNIDAZOLE 500 MG/100 ML BAG IV SCH ×4 (05:01→23:03)
[2017-06-25] MEDS: 0.9 % SODIUM CHLORIDE 10 ML SYRINGE IV SCH ×3 (05:51→21:54)
[2017-06-25 05:53] LABS: Mean Cell Volume 81.2 fL (80.0-100.0); Mean Corpuscular HGB Conc 32.7 g/dL (31.0-36.0); Mean Corpuscular Hemoglobin 26.5 pg (26.0-34.0); Platelet Count 415 K/mcL (140-440); RBC 3.29 M/mcL (4.00-5.20); Red Cell Distribution Width 17.4 % (11.5-14.5)
[2017-06-25 06:29] LABS: ALT/SGPT 11 U/l (0-40); Albumin 2.5 gm/dL (3.2-5.2); Albumin/Globulin Ratio 1.1 (1.0-2.3); Alkaline Phosphatase 47 U/L (39-117); Bilirubin,Direct < 0.2 mg/dL (0.0-0.3); Blood Urea Nitrogen 33 mg/dl (8-23); Gamma Glutamyl Transpeptidase 73 U/L (5-36); Magnesium 2.4 mg/dL (1.6-2.5); Uric Acid 2.2 mg/dL (2.5-8.0)
[2017-06-25 06:58] LABS: Anisocytosis 1+ (NONE SEEN); Band Neutrophils % 3 % (0-10); Lymphocytes % 4 % (15-49); Monocytes % (Manual) 5 % (1-12); Platelet Estimate NORMAL (NORMAL); RBC Morphology ABNORM (NORMAL); Segmented Neutrophils % 88 % (38-78); Toxic Granulation 1+ (NONE SEEN)
[2017-06-25] MEDS: predniSONE 20 MG TABLET PO SCH (07:00)
[2017-06-25] MEDS: FLUCONAZOLE 100 MG TABLET PO SCH (07:00)
[2017-06-25] MEDS: HEPARIN 5,000 UNIT/ML VIAL SQ SCH ×2 (07:04→21:50)
[2017-06-25] MEDS: PANTOPRAZOLE 40 MG VIAL IV SCH ×2 (07:04→16:29)
[2017-06-25] MEDS: FUROSEMIDE 20 MG/2 ML VIAL IV SCH ×2 (07:04→21:50)
[2017-06-25] MEDS: HYDROmorphone 2 MG/ML SYRINGE IV PRN ×4 (07:05→21:59)
[2017-06-25] MEDS ORDERED: FUROSEMIDE 20 MG/2 ML VIAL IV ONE (08:20)
[2017-06-25] MEDS: CHLORHEXIDINE GLUCONATE 1 ML ORAL.SOL SWABMOUTH SCH ×2 (09:40→21:53)
[2017-06-25] MEDS: CIPROFLOXACIN 400 MG/200 ML BAG IV SCH ×2 (09:42→21:53)
--- NOTE | 2017-06-25 14:05 | Internal Med Progress Note ---
Medical - PN: Subj Patient information: Note initiated : 06/25/17 at 2:03 pm Service Date, if different from initiated Date: [] Patient: Caroline Bellamy a 77 y/o F admitted on 06/12/17 for N/V, UTI, Constipation/Colon Obstruction, UTI. Chief Complaint: [] Interval history: June 12 Ms. Adiel Cardoso is a 77 year old F who presents to the ED with ongoing complaints of abdominal pain. Patient awoke last Thursday with abdominal pain. She was also nauseated. She was seen in the emergency department due to ongoing symptoms on Thursday, 06/08. CT scan at that time showed some colonic thickening and wall edema without significant inflammatory changes. There was also diverticulosis. She had evidence of urinary tract infection and was started on Septra. Patient remained nauseated and was unable to take the Septra. She continued to have significant abdominal pain, up to 06/09. On the day following her ED visit , she was nauseated and was unable to keep anything down. She presented back to the emergency department, had Bactrim stopped and was changed over to ciprofloxacin. Neither the patient nor her family were aware that a new prescription of been generated and it was never picked up. On Thursday and she continued to have vomiting which was without blood. She continued to have significant abdominal pain up to "08/09". She presents back to the emergency department today because of ongoing abdominal pain, nausea and vomiting. With the onset of the pain a week ago, the pain was severe and was in the left lower quadrant, changing over to the right lower quadrant and becoming generalized as last week has progressed. She describes the quality of the pain is constant and aching with intermittent bouts of stabbing pain. Associated with nausea, vomiting without hematemesis. She has hydrocodone prescription for chronic back pain, that has helped her pain somewhat, though she has had some difficulty keeping medications down. She tried an oral Zofran, was able to keep one done yesterday, but not today. June 13 She is still complaining of significant abdominal pain, more so on the right side from the right upper and right lower quadrant. Tolerating clears, nausea has improved, no ecchymosis. She did have one small hard bowel movement, then to softer ones. She did receive bisacodyl rectally, also oral milk of magnesia and senna last evening. No fever, no chills. No significant dyspnea, has used 1 as needed nebulizer therapy. CT of the abdomen and pelvis was obtained due to ongoing pain. Spoke with radiology, films reviewed, she has dilated colon, ascending, transverse, descending with a transition point in the sigmoid where it decompresses. No pericolonic inflammatory changes, no mural thickening. Patient currently undergoing delayed images to see if there is passage of contrast. June 14 Still complaining of abdominal pain. Had some desaturation overnight, on oxygen. Received dose of furosemide earlier today. Still requiring regular Dilaudid today, though when I see her this morning the interval between when necessary doses has increased somewhat. Final results of CTAP yesterday without passage of contrast. I discussed the case with Dr. Eubanks last evening, he is seeing the patient today , plans to take to the operating room. Her white count was increased to 22,000 today. Ceftriaxone changed to Zosyn this morning. June 15 Patient currently in the intensive care unit following surgery yesterday. Had inflammatory mass causing sigmoid obstruction. Subsequently had rupture of right colon intraoperatively, necessitating colectomy and washout. 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 Wound is being packed open. Overnight patient received fluid resuscitation of 6 L NS, did achieve adequate CVP, still required norepinephrine. Today receiving packed red blood cells, still on norepinephrine, though that has been titrated down a bit. Remains sedated with propofol on ventilator. Plan to go back to the OR Thursday for washout and possible closure. June 16 Patient remained stable, ventilated and sedated. Remains on some Levophed for blood pressure support. Diuresed well with 40 mg of furosemide yesterday. Still with significant thigh and arm edema. Right pleural effusion on radiograph today, though infiltrates/atelectasis improves. Arterial line started to dampen and not function overnight, was removed. June 17 Patient now postop after planned second look exploratory laparotomy. No evidence of intra-abdominal abscess, final closure performed. Some increased airway pressures postoperatively, had been bagged on the way back to the ICU, which may explain some of her airway pressures and an increase in FiO2, seemed to be improving as the afternoon progresses. Nonpitting edema, urine output is adequate but not brisk, on 100 mils an hour fluid. Still on TPN. Still requiring some NE for BP support. June 18 Norepinephrine weaned off overnight. Remains significantly volume long. During wake up trial this morning, became tachypnea can airway pressures went up , did withdrawal from lower extremity stimuli, but did not open eyes to voice or respond upper extremity stimulus. Had to be re-sedated before this could happen due to her status. Chest x-ray showing some worsening congestion. Between TPN, drips and IV fluids containing almost 200 mL an hour. Will DC maintenance fluids, continuous TPN and drips, give furosemide today. We'll also add fentanyl infusion for baseline pain control in the postoperative state. Also on propofol for sedation. June 19: Patient seen examined, [facility] pressors [facility] labs reviewed , worsening leucocytosis today at 16.3, CXR shows patient has bibasilar infiltrates. The patient was weaned off sedation this AM she opened eyes but did not follow commands, She became tachypenic and tachycardic, on wean trial. Pt TV was increased overnight by RT, changed back to 360 this AM repeat ABG to be done in 30 mins. Vancomycin was added yesterday in light of pulmonary infiltrates, Vent parameters AC mode, TV 360 (was 420 in AM), RR 16, Fio2 40, PEEP 5. Peak pressure 26-28, Plat 19-23, I/0 Pt was negative 1225 yesterday. sedation: propofol and fentanyl Diet TPN Riggs in place Right SC in place for central venous access June 20 Patient seen exmined, sedated on vent, Sedation was held this AM, and patient mental status improved, she was better than yesterday, did follow some commands. Placed on pressure support of 7, but became tachycardic and tachypenic after sometime. placed back on AC mode Her wbc is creeping up, we tried to change antibiotics from zosyn to carbapenum , but we are in short supply at this time. Xray done this AM shows significant worsening in her infiltrtes, chf vs ards Vent parameters AC mode TV 360, RR 12 (set), PEEP 5, Fio2 40, Plat 18-24, Peak 25-28 ABG 7.42/45/83 Lact 0.5 Patient responding well to diuresis, was neg 3L yesterday. June 21 Aly wheeler examined no acute overnight issues X ray stable today ABG stable, ph 7.45/45/79, Vent setting unchanged. Peak pressure 25, plat 22 WBC imprving on albumin and lasix bid for gen edema/ ards/ chf off propofol for today to see how she does with her mental status only on fenanyl, mental status much better, able to follow commands and nod to some questions. Plan of care reviewed with the patients daugther June 22 patien seen examined, good mental status off sedatives, following commands She did well on weaning parameters for extubation, vasyl index < 105, SBT on 7 SP was well tolerated with good tidal volues pt extubated this AM, however was short of breath on extubation, She was given duonebs and palced on bipap. The aptient repeat abg was good, x ray showed pulmonary congestion. IV lasix and bipap continued. She is obeying c ommands. for now Sputum cx is suggestive of pseudomonas. d/c vanco, IV cipro added. continue zosyn. wbc mildy uptrended today but pt was on steroids June 23: patient seen examined, no acute overnight issues patient this AM is off bipap and is able on 6L oxygen, still has some shortness of breath ABG showed metabolic alkalosis Continue IV lasixi for diuresis, pt was neg 2.5 L yesterday still has positive 2.5L since admission. Mental status much better able to communicate well On iv zosyn and cipro and flagyl wbc trended down today June 24 Patient seen examined no acute overnight issues patient was on bipap overnight, and is back on nasal canula, bipap used to give some support and help her relax patient is neg now since admission, dose of lasix cut down to 20mg bid, to ensure that she does not get fluid overloaded with her tpn and other fluids resume oral diet as tolerated CXR shows slight worsening of congetion overall we seem to be making good progress June 25 Patient seen examined no acute overnight events, patient was sob this AM and was placed on bipap, 10/5 , fio2 25, tolerating well increase dose of lasix from 20mg bid to 40mg bid Calorie count intiated still on TPN Pertinent ROS: Denies headache, dizziness Denies chest pain, palpitations Denies cough or shortness of breath (pt herself deneis any symptoms, but seemed tired this AM as per nurse hence placed on bipap) Denies abdominal pain, nausea or vomiting. - Constitutional Vitals: Vital Signs Temp Pulse Resp BP Pulse Ox 99.0 F H 86 18 97/56 97 06/25/17 09:01 06/25/17 11:45 06/25/17 11:45 06/25/17 09:01 06/25/17 09:49 Period Temp Pulse Resp BP Sys/[place] Pulse Ox Last 24 Hr 97.8 F-99.6 F 36-87 16-24 83-125/45-99 92-98 Intake and Output 06/25/17 06/25/17 06/25/17 05:59 13:59 21:59 Intake Total 1362.889 / 1362.889 594 / 594 Output Total 951 / 951 1600 / 1600 Balance 411.889 / 411.889 -1006 / -1006 Intake & Output: Intake & Output 06/25/17 06/25/17 06/25/17 05:59 13:59 21:59 Intake Total 1362.889 / 1362.889 594 / 594 Output Total 951 / 951 1600 / 1600 Balance 411.889 / 411.889 -1006 / -1006 Intake: IV 1302.889 / 1302.889 594 / 594 Calcium Gluconate 5 Meq 1059.889 / 1059.889 Magnesium Sulfate 16.24 Meq Sodium Chloride 20 Meq Potassium Phosphate 60 Meq Infuvite Adult 10 ml Selenium 60 Mcg Potassium Chloride 30 Meq In Clinimix 5%-20% Solution 1,000 ml @ 50 mls/hr IV Q21H [facility] Rx#:[id number] Intralipid 20% 250 ml In Premix 250 / 250 1 Bag @ 25 mls/hr IV DAILY@ 1600 [facility] Rx#:[id number] Zosyn 3.375 gm In Sodium 50 / 50 50 / 50 Chloride 0.9% 50 ml @ 100 mls/ hr IV Q6H [facility] Rx#:[id number] Oral 60 / 60 Output: Urine Catheter Amount 950 / 950 1600 / 1600 # of times incontinent of urine / Exam: Constitutional; Afebrile, cooperative, alert, not in distress. Eyes- No icterus, , No periorbital swelling Ears- Ext ear normal, hearing normal to conversation. Neck- Midline trachea, supple Respiratory system: Air Entry equal on both sides, basilar crackles present, no wheezing, no rhonchi. CVS- Rate rhythm regular, S1,S2 heard, no gallop, no rub. Abdomen- Soft nontender abdomen, bs present PLANE RUNNER- AOOx3, moving all extremities, no gross focal deficit noted. Medical - PN: Obj Da - Labs CBC & Chem 7: 06/25/17 04:38 06/25/17 04:38 Labs: Abnormal Lab Results 06/25/17 06/25/17 06/25/17 04:38 04:38 04:38 WBC 12.0 H RBC 3.29 L Hgb 8.7 L Hct 26.7 L RDW 17.4 H Plt Count Seg Neutrophils % 88 H Lymphocytes % 4 L WBC Morphology Abnorm A Toxic Granulation 1+ A RBC Morphology Abnorm A Anisocytosis 1+ A RBC Fragments PT 15.7 H INR 1.2 H Carbon Dioxide Anion Gap BUN 33 H Creatinine Glucose 110 H Uric Acid 2.2 L Calcium 8.3 L Phosphorus GGT 73 H Total Protein 4.7 L Albumin 2.5 L 06/24/17 06/24/17 06/23/17 04:00 04:00 03:40 WBC 13.6 H 13.3 H RBC 3.49 L 3.46 L Hgb 9.1 L 9.3 L Hct 28.1 L 28.2 L RDW 17.2 H 17.1 H Plt Count 472 H Seg Neutrophils % 93 H 87 H Lymphocytes % 2 L 2 L WBC Morphology Toxic Granulation RBC Morphology Abnorm A Anisocytosis 1+ A RBC Fragments Occ A PT INR Carbon Dioxide 31 H Anion Gap 7.0 L BUN 30 H Creatinine 0.5 L Glucose 179 H Uric Acid 2.4 L Calcium 8.4 L Phosphorus GGT 78 H Total Protein 4.9 L Albumin 2.7 L 06/23/17 03:40 WBC RBC Hgb Hct RDW Plt Count Seg Neutrophils % Lymphocytes % WBC Morphology Toxic Granulation RBC Morphology Anisocytosis RBC Fragments PT INR Carbon Dioxide 37 H Anion Gap BUN 27 H Creatinine 0.5 L Glucose 175 H Uric Acid 2.4 L Calcium 8.5 L Phosphorus 2.5 L GGT 68 H Total Protein 5.1 L Albumin 2.7 L Meds: Medications Acetaminophen (Tylenol) 650 mg PO Q6HP PRN PRN Reason: PAIN/FEVER > 101 Albuterol/Ipratropium (Duoneb) 3 ml NEB Q4HRT [facility] Last Admin: 06/25/17 11:56 Dose: 3 ml Albuterol/Ipratropium (Duoneb) 3 ml NEB Q4HP PRN PRN Reason: Shortness Of Breath Or Wheezing Last Admin: 06/22/17 11:05 Dose: 3 ml Artificial Tears (Artificial Tears Ophth Drops) 1 gtt OD QIDP PRN PRN Reason: Dry Eye(s) Last Admin: 06/20/17 13:10 Dose: 1 gtt Chlorhexidine Gluconate (Peridex) 15 ml SWABMOUTH BID [facility] Last Admin: 06/25/17 09:40 Dose: 15 ml Dextrose (Dextrose 50%) 25 ml IV UD PRN PRN Reason: Hypoglycemia Dextrose (Dextrose 50%) 0 ml IV UD PRN PRN Reason: Hypoglycemia Diagnostic Test (Pha) (Accu-Chek) 1 each FS Q6 [facility] Last Admin: 06/25/17 11:43 Dose: 1 each Fluconazole (Diflucan) 100 mg PO DAILY [facility] Last Admin: 06/25/17 07:00 Dose: 100 mg Furosemide (Lasix) 40 mg IV Q12 [facility] Heparin Sodium (Porcine) (Heparin) 5,000 unit SQ Q12 [facility] Last Admin: 06/25/17 07:04 Dose: 5,000 unit Hydromorphone HCl (Dilaudid) 0.5 mg IV Q1HP PRN PRN Reason: Pain Last Admin: 06/25/17 10:32 Dose: 0.5 mg Metronidazole (Flagyl) 500 mg in 100 mls @ 100 mls/hr IV Q6H [facility] Last Infusion: 06/25/17 11:30 Dose: 0 mls/hr Acetaminophen (Ofirmev) 1,000 mg in 100 mls @ 200 mls/hr IV Q6HP PRN PRN Reason: PAIN/FEVER > 101 Last Infusion: 06/23/17 08:57 Dose: Infused Piperacillin Sod/Tazobactam (Sod 3.375 gm/ Sodium Chloride) 50 mls @ 100 mls/ hr IV Q6H [facility] Last Admin: 06/25/17 11:43 Dose: 100 mls/hr Norepinephrine Bitartrate 16 (mg/ Sodium Chloride) 250 mls @ 9.37 mls/hr IV Q24HP PRN; Protocol; 10 MCG/MIN PRN Reason: TITRATE TO KEEP MAP > 65 Ciprofloxacin (Cipro) 400 mg in 200 mls @ 200 mls/hr IV Q12H [facility] Last Infusion: 06/25/17 10:40 Dose: 0 mls/hr Fat Emulsion Intravenous 250 (ml/ Premix) 250 mls @ 25 mls/hr IV DAILY@1600 [facility] Last Infusion: 06/25/17 06:30 Dose: Infused Calcium Gluconate 5 meq/Magnesium Sulfate 8.12 meq/Sodium Chloride 40 meq/ Potassium Phosphate 50 meq/Multivitamins/Minerals 10 ml/Selenium 60 mcg/ Potassium Chloride 30 meq/ Amino Acids 1,060.6162 mls @ 50 mls/hr IV Q21H [facility] Last Admin: 06/25/17 04:59 Dose: 50 mls/hr Insulin Human Lispro (Humalog) 0 unit SQ Q6 [facility] PRN Reason: Protocol Last Admin: 06/25/17 12:02 Dose: Not Given Lorazepam (Ativan) 1 mg IV Q4-6HP PRN PRN Reason: ANXIETY/SEDATION Last Admin: 06/24/17 22:30 Dose: 1 mg Ondansetron HCl (Zofran) 4 mg IV Q6HP PRN PRN Reason: Nausea And Vomiting Pantoprazole Sodium (Protonix) 40 mg IV BIDAC [facility] Last Admin: 06/25/17 07:04 Dose: 40 mg Prednisone (Prednisone) 40 mg PO QAC [facility] Last Admin: 06/25/17 07:00 Dose: 40 mg Sodium Chloride (Saline Flush) 10 ml IV UD PRN PRN Reason: medication Last Admin: 06/24/17 15:10 Dose: 10 ml Sodium Chloride (Saline Flush) 10 ml IV Q8 [facility] Last Admin: 06/25/17 12:02 Dose: 10 ml Medical - PN: A/P - Time Spent With Patient Total time spent is greater than 50% in coordination of care (as documented) at patient's floor/unit and/or counseling patient: - Narrative A/P Narrative: 77-year-old female without GI illness (though in retrospect has had diverticulitis in past) presents with abdominal pain, nausea and vomiting. Also has urinary tract infection. Evolution of distal colonic obstruction, subsequently went to the operating room on 06/14, resection of sigmoid mass, a contained perforation of transverse colon and spontaneous rupture of right colon intraoperatively. Acute diverticulitis. . Postop day # 11 , status post exploratory laparotomy, hemicolectomy with ileostomy, Clark's procedure with mucous fistula. Now Post-op day #8 from re-look and delayed closure. Plan: management Per surgery, continue Zosyn and metronidazole, add basal fentanyl for postoperative analgesia. HCAP PNA: Pseudomonas likely on sputum cx, add cipro ,stop vanco, continue on zosyn for GI, Acute respiratory failure : ARDS vs CHF Vs PNA Post extubation day 3 on Nasal canula and prn bipap now, wean down as tolerated asthma: on duonebs q4hrs , po prednisone , wean down gradually, no wheeze on exam Malnutrition on TPN, will contiue same for now, oral feeds as tolerated, calorie count initiated. Hypokalemia / Hypomanesemia. replace as needed Anemia: likely related to underlying infection, monitor for now, hb stable. CODE STATUS, discussed with the patient at admission, is DNR Prophylaxis: Protonix, SCD's hep sq Critical care time spent > 35 mins in monitoring abg, x ray, antibiotics, nutrion, mnagement of vent . Procedures - Arterial Line Size (Gauge): 20
[2017-06-25] MEDS: 0.9 % SODIUM CHLORIDE 10 ML SYRINGE IV PRN (16:24)
[2017-06-25] MEDS: FAT EMULSION 20% 250 ML in PREMIX 1 BAG IV SCH (16:24)
--- NOTE | 2017-06-25 16:54 | General Surgery Progress Note ---
Subjective Patient reports: feels better, pain is less, tolerating liquids well, flatus, bowel movement, afebrile Narrative: Note initiated : 06/25/17 at 4:53 pm Service Date, if different from initiated Date: [] Patient: Caroline Bellamy 77 y/o F admitted on 06/12/17 for N/V, UTI, Constipation/Colon Obstruction, UTI. Chief Complaint: [Patient is feeling better but she still weak. She has increased dyspnea with minimal exertion. Her O2 sats on nasal cannula are in the 95-97% range. She denies chest pain. She has mild abdominal pain. She denies leg pain. Chest x-ray shows significant improvement compared to 24 June. She has good intestinal function via her ileostomy. Her p.o. intake is still minimal.] Objective Temp Pulse Resp BP Pulse Ox 99.0 F H 86 18 97/56 97 06/25/17 09:01 06/25/17 15:00 06/25/17 15:00 06/25/17 09:01 06/25/17 09:49 - Additional Data Intake & Output - Last 24 hours: Intake & Output 06/23/17 06/24/17 06/25/17 06/26/17 05:59 05:59 05:59 05:59 Intake Total 3047.3435 / 3047.3435 2100.3435 / 2100.3435 3713.2325 / 3713.2325 644 / 644 Output Total 5550 / 5550 6467 / 6467 2866 / 2866 1600 / 1600 Balance -2502.6565 / -2502.6565 -4366.6565 / -4366.6565 847.2325 / 847.2325 - 956 / -956 Weight 168 lb 8 oz 163 lb 153 lb 6 oz 153 lb 6 oz - General physical appearance moderate distress, other (Most of the stress is due to overall weakness) - Eyes PERRL - ENT no congestion - Neck no venous distension - Respiratory other (Still with coarse tubular breath sounds bilaterally) - Cardiovascular Cardiovascular exam: Present: normal rate and rhythm, JVD, +S1, +S2 - Abdomen non tender, bowel sounds (Nondistended abdomen with good active bowel sounds incision looks good; stomas were good) - Integumentary no rash, no growths, no abnormal pigmentation - Neurologic normal coordination, other (Still with general weakness from deconditioning) - Musculoskeletal other (Unable to stand unassisted) - Psychiatric oriented to time, oriented to person, oriented to place, speech is normal, memory intact - Labs 06/25/17 04:38 06/26/17 04:00 Diabetes panel 06/25/17 Range/Units 04:38 Sodium 137 (133-145) mmol/L Potassium 4.2 (3.3-5.1) mmol/L Chloride 101 (96-108) mmol/L Carbon Dioxide 26 (22-30) mmol/L BUN 33 H (8-23) mg/dl Creatinine 0.6 (0.6-1.1) mg/dl Glucose 110 H (70-105) mg/dL Calcium 8.3 L (8.6-10.4) mg/dl AST 9 (0-37) U/l ALT 11 (0-40) U/l Alkaline Phosphatase 47 (39-117) U/L Total Protein 4.7 L (5.9-8.4) gm/dL Albumin 2.5 L (3.2-5.2) gm/dL Triglycerides 90 (<150) mg/dl Calcium panel 06/25/17 Range/Units 04:38 Calcium 8.3 L (8.6-10.4) mg/dl Phosphorus 3.3 (2.7-4.5) mg/dL Albumin 2.5 L (3.2-5.2) gm/dL Pituitary panel 06/25/17 Range/Units 04:38 Sodium 137 (133-145) mmol/L Potassium 4.2 (3.3-5.1) mmol/L Chloride 101 (96-108) mmol/L Carbon Dioxide 26 (22-30) mmol/L BUN 33 H (8-23) mg/dl Creatinine 0.6 (0.6-1.1) mg/dl Glucose 110 H (70-105) mg/dL Calcium 8.3 L (8.6-10.4) mg/dl Adrenal panel 06/25/17 Range/Units 04:38 Sodium 137 (133-145) mmol/L Potassium 4.2 (3.3-5.1) mmol/L Chloride 101 (96-108) mmol/L Carbon Dioxide 26 (22-30) mmol/L BUN 33 H (8-23) mg/dl Creatinine 0.6 (0.6-1.1) mg/dl Glucose 110 H (70-105) mg/dL Calcium 8.3 L (8.6-10.4) mg/dl Total Bilirubin 0.2 (0.0-1.0) mg/dL AST 9 (0-37) U/l ALT 11 (0-40) U/l Alkaline Phosphatase 47 (39-117) U/L Total Protein 4.7 L (5.9-8.4) gm/dL Albumin 2.5 L (3.2-5.2) gm/dL Assessment and Plan (1) Colon obstruction Problem details: Mass in sigmoid, resected 06/14/2017-diverticulitis Status: Acute Assessment and plan: general status is much improved and respiratory status is better than on yesterday Current Visit: Yes (2) Anemia Status: Acute Assessment and plan: she has stable hgb over the past 24 hr Current Visit: Yes (3) UTI due to Klebsiella species Status: Resolved Assessment and plan: Resolved Current Visit: Yes - Time Spent With Patient Total time spent is greater than 50% in coordination of care (as documented) at patient's floor/unit and/or counseling patient:
[2017-06-25] MEDS: LORazepam 2 MG/ML VIAL IV PRN (21:59)
[2017-06-26] MEDS: INSULIN LISPRO 1 UNIT/0.01 ML UNIT SQ SCH ×5 (00:55→23:57)
[2017-06-26] MEDS: CALCIUM GLUCONATE 5 MEQ, MAGNESIUM SULFATE 8.12 MEQ, SODIUM CHLORIDE 40 MEQ, POTASSIUM ... IV SCH ×2 (02:15→22:27)
[2017-06-26] MEDS: IPRATROPIUM/ALBUTEROL 3 ML AMPUL.NEB NEB SCH ×6 (02:43→23:05)
[2017-06-26] MEDS: LORazepam 2 MG/ML VIAL IV PRN (04:45)
[2017-06-26 05:14] LABS: ALT/SGPT 10 U/l (0-40); Albumin 2.6 gm/dL (3.2-5.2); Albumin/Globulin Ratio 1.1 (1.0-2.3); Alkaline Phosphatase 48 U/L (39-117); Bilirubin,Direct < 0.2 mg/dL (0.0-0.3); Blood Urea Nitrogen 32 mg/dl (8-23); Gamma Glutamyl Transpeptidase 72 U/L (5-36); Magnesium 2.2 mg/dL (1.6-2.5); Uric Acid 2.4 mg/dL (2.5-8.0)
[2017-06-26] MEDS: metroNIDAZOLE 500 MG/100 ML BAG IV SCH ×4 (05:36→23:45)
[2017-06-26] MEDS: PIPERACILLIN SODIUM/TAZOBACTAM 3.375 GM in 0.9 % SODIUM CHLORIDE 50 ML IV SCH ×4 (05:54→18:04)
--- NOTE | 2017-06-26 08:18 | XRay Report ---
HISTORY: Reason for Exam:chf FINDINGS: There are alveolar infiltrates in both lower lobes and around the marlene. There is also a thick transversely oriented band of discoid atelectasis in the lingula. A small residual left-sided pleural effusion is present. The heart size is normal. A vague 9 mm nodular density is present laterally in the right upper thorax. This nodule has not been a consistent finding compared with the recent exams which would indicate that it is unlikely a malignancy. There are a few lymph nodes in the mediastinum which are partially calcified. Comparison with the prior exam from 06/24/17 shows the pulmonary vascular congestion has improved and there is improving aeration in both lower lobes. IMPRESSION: Bilateral infiltrates and pulmonary vascular congestion. This has improved. Interpreted and Authenticated by: Varghese Reich 06/26/17
[2017-06-26] MEDS: 0.9 % SODIUM CHLORIDE 10 ML SYRINGE IV SCH ×3 (08:21→23:45)
[2017-06-26] MEDS: predniSONE 20 MG TABLET PO SCH (08:21)
[2017-06-26] MEDS: PANTOPRAZOLE 40 MG VIAL IV SCH ×2 (08:21→17:38)
[2017-06-26] MEDS: HYDROmorphone 2 MG/ML SYRINGE IV PRN ×5 (08:29→23:09)
[2017-06-26] MEDS: FLUCONAZOLE 100 MG TABLET PO SCH (09:34)
[2017-06-26] MEDS: HEPARIN 5,000 UNIT/ML VIAL SQ SCH ×2 (09:34→20:53)
[2017-06-26] MEDS: CIPROFLOXACIN 400 MG/200 ML BAG IV SCH ×2 (09:34→20:47)
[2017-06-26] MEDS: CHLORHEXIDINE GLUCONATE 1 ML ORAL.SOL SWABMOUTH SCH ×2 (09:35→20:54)
[2017-06-26] MEDS: FUROSEMIDE 20 MG/2 ML VIAL IV SCH ×2 (09:35→20:53)
--- NOTE | 2017-06-26 14:05 | General Surgery Progress Note ---
Subjective Patient reports: pain is less, flatus, bowel movement, afebrile Narrative: Note initiated : 06/26/17 at 2:02 pm Service Date, if different from initiated Date: [] Patient: Caroline Bellamy 77 y/o F admitted on 06/12/17 for N/V, UTI, Constipation/Colon Obstruction, UTI. Chief Complaint: [Patient is stable except for severe deconditioning. She was finally seen by physical therapy. Nurses are advised to have her out of bed at least twice daily. She complains of shortness of breath but denies chest pain. She has mild abdominal pain. Her stomas are working nicely. General peripheral edema is significantly improved.] Objective Temp Pulse Resp BP Pulse Ox 98.8 F 86 18 97/60 97 06/26/17 11:01 06/26/17 13:27 06/26/17 11:17 06/26/17 13:00 06/26/17 13:27 - Additional Data Intake & Output - Last 24 hours: Intake & Output 06/24/17 06/25/17 06/26/17 06/27/17 05:59 05:59 05:59 05:59 Intake Total 2100.3435 / 2100.3435 3713.2325 / 3713.2325 2811.6162 / 2811.6162 500 / 500 Output Total 6467 / 6467 2866 / 2866 4870 / 4870 1450 / 1450 Balance -4366.6565 / -4366.6565 847.2325 / 847.2325 -2058.3838 / -2058.3838 - 950 / -950 Weight 163 lb 153 lb 6 oz 146 lb 12.8 oz - General physical appearance moderate distress, cachectic, chronically ill - Eyes PERRL - ENT no congestion - Neck no venous distension - Respiratory normal expansion, other (Poor respiratory effort; much better air movement bilaterally; few coarse tubular breath sounds) - Cardiovascular Cardiovascular exam: Present: normal rate and rhythm, RRR, +S1, +S2. Absent: JVD - Abdomen soft, non tender, bowel sounds (Good active bowel sounds without distention incision and stomas look good) - Integumentary no rash, no growths, no abnormal pigmentation - Neurologic normal coordination, normal sensation, other (Generalized weakness) - Musculoskeletal other (Gait cannot be tested because of generalized weakness) - Psychiatric oriented to time, oriented to person, oriented to place, speech is normal, memory intact - Labs 06/25/17 04:38 06/26/17 04:00 Diabetes panel 06/26/17 Range/Units 04:00 Sodium 137 (133-145) mmol/L Potassium 4.0 (3.3-5.1) mmol/L Chloride 101 (96-108) mmol/L Carbon Dioxide 27 (22-30) mmol/L BUN 32 H (8-23) mg/dl Creatinine 0.5 L (0.6-1.1) mg/dl Glucose 118 H (70-105) mg/dL Calcium 8.2 L (8.6-10.4) mg/dl AST 10 (0-37) U/l ALT 10 (0-40) U/l Alkaline Phosphatase 48 (39-117) U/L Total Protein 4.9 L (5.9-8.4) gm/dL Albumin 2.6 L (3.2-5.2) gm/dL Triglycerides 110 (<150) mg/dl Calcium panel 06/26/17 Range/Units 04:00 Calcium 8.2 L (8.6-10.4) mg/dl Phosphorus 3.1 (2.7-4.5) mg/dL Albumin 2.6 L (3.2-5.2) gm/dL Pituitary panel 06/26/17 Range/Units 04:00 Sodium 137 (133-145) mmol/L Potassium 4.0 (3.3-5.1) mmol/L Chloride 101 (96-108) mmol/L Carbon Dioxide 27 (22-30) mmol/L BUN 32 H (8-23) mg/dl Creatinine 0.5 L (0.6-1.1) mg/dl Glucose 118 H (70-105) mg/dL Calcium 8.2 L (8.6-10.4) mg/dl Adrenal panel 06/26/17 Range/Units 04:00 Sodium 137 (133-145) mmol/L Potassium 4.0 (3.3-5.1) mmol/L Chloride 101 (96-108) mmol/L Carbon Dioxide 27 (22-30) mmol/L BUN 32 H (8-23) mg/dl Creatinine 0.5 L (0.6-1.1) mg/dl Glucose 118 H (70-105) mg/dL Calcium 8.2 L (8.6-10.4) mg/dl Total Bilirubin 0.2 (0.0-1.0) mg/dL AST 10 (0-37) U/l ALT 10 (0-40) U/l Alkaline Phosphatase 48 (39-117) U/L Total Protein 4.9 L (5.9-8.4) gm/dL Albumin 2.6 L (3.2-5.2) gm/dL Assessment and Plan (1) Colon obstruction Problem details: Mass in sigmoid, resected 06/14/2017-diverticulitis Status: Acute Assessment and plan: general status is much improved and respiratory status is better than on yesterday Current Visit: Yes (2) Anemia Status: Acute Assessment and plan: she has stable hgb over the past 24 hr Current Visit: Yes (3) UTI due to Klebsiella species Status: Resolved Assessment and plan: Resolved Current Visit: Yes - Time Spent With Patient Total time spent is greater than 50% in coordination of care (as documented) at patient's floor/unit and/or counseling patient:
--- NOTE | 2017-06-26 15:30 | Internal Med Progress Note ---
Medical - PN: Subj Patient information: Note initiated : 06/26/17 at 3:19 pm Service Date, if different from initiated Date: [] Patient: Caroline Bellamy a 77 y/o F admitted on 06/12/17 for N/V, UTI, Constipation/Colon Obstruction, UTI. Chief Complaint: [] Interval history: June 12 Ms. Adiel Cardoso is a 77 year old F who presents to the ED with ongoing complaints of abdominal pain. Patient awoke last Thursday with abdominal pain. She was also nauseated. She was seen in the emergency department due to ongoing symptoms on Thursday, 06/08. CT scan at that time showed some colonic thickening and wall edema without significant inflammatory changes. There was also diverticulosis. She had evidence of urinary tract infection and was started on Septra. Patient remained nauseated and was unable to take the Septra. She continued to have significant abdominal pain, up to 06/09. On the day following her ED visit , she was nauseated and was unable to keep anything down. She presented back to the emergency department, had Bactrim stopped and was changed over to ciprofloxacin. Neither the patient nor her family were aware that a new prescription of been generated and it was never picked up. On Thursday and she continued to have vomiting which was without blood. She continued to have significant abdominal pain up to "08/09". She presents back to the emergency department today because of ongoing abdominal pain, nausea and vomiting. With the onset of the pain a week ago, the pain was severe and was in the left lower quadrant, changing over to the right lower quadrant and becoming generalized as last week has progressed. She describes the quality of the pain is constant and aching with intermittent bouts of stabbing pain. Associated with nausea, vomiting without hematemesis. She has hydrocodone prescription for chronic back pain, that has helped her pain somewhat, though she has had some difficulty keeping medications down. She tried an oral Zofran, was able to keep one done yesterday, but not today. June 13 She is still complaining of significant abdominal pain, more so on the right side from the right upper and right lower quadrant. Tolerating clears, nausea has improved, no ecchymosis. She did have one small hard bowel movement, then to softer ones. She did receive bisacodyl rectally, also oral milk of magnesia and senna last evening. No fever, no chills. No significant dyspnea, has used 1 as needed nebulizer therapy. CT of the abdomen and pelvis was obtained due to ongoing pain. Spoke with radiology, films reviewed, she has dilated colon, ascending, transverse, descending with a transition point in the sigmoid where it decompresses. No pericolonic inflammatory changes, no mural thickening. Patient currently undergoing delayed images to see if there is passage of contrast. June 14 Still complaining of abdominal pain. Had some desaturation overnight, on oxygen. Received dose of furosemide earlier today. Still requiring regular Dilaudid today, though when I see her this morning the interval between when necessary doses has increased somewhat. Final results of CTAP yesterday without passage of contrast. I discussed the case with Dr. Eubanks last evening, he is seeing the patient today , plans to take to the operating room. Her white count was increased to 22,000 today. Ceftriaxone changed to Zosyn this morning. June 15 Patient currently in the intensive care unit following surgery yesterday. Had inflammatory mass causing sigmoid obstruction. Subsequently had rupture of right colon intraoperatively, necessitating colectomy and washout. 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 Wound is being packed open. Overnight patient received fluid resuscitation of 6 L NS, did achieve adequate CVP, still required norepinephrine. Today receiving packed red blood cells, still on norepinephrine, though that has been titrated down a bit. Remains sedated with propofol on ventilator. Plan to go back to the OR Thursday for washout and possible closure. June 16 Patient remained stable, ventilated and sedated. Remains on some Levophed for blood pressure support. Diuresed well with 40 mg of furosemide yesterday. Still with significant thigh and arm edema. Right pleural effusion on radiograph today, though infiltrates/atelectasis improves. Arterial line started to dampen and not function overnight, was removed. June 17 Patient now postop after planned second look exploratory laparotomy. No evidence of intra-abdominal abscess, final closure performed. Some increased airway pressures postoperatively, had been bagged on the way back to the ICU, which may explain some of her airway pressures and an increase in FiO2, seemed to be improving as the afternoon progresses. Nonpitting edema, urine output is adequate but not brisk, on 100 mils an hour fluid. Still on TPN. Still requiring some NE for BP support. June 18 Norepinephrine weaned off overnight. Remains significantly volume long. During wake up trial this morning, became tachypnea can airway pressures went up , did withdrawal from lower extremity stimuli, but did not open eyes to voice or respond upper extremity stimulus. Had to be re-sedated before this could happen due to her status. Chest x-ray showing some worsening congestion. Between TPN, drips and IV fluids containing almost 200 mL an hour. Will DC maintenance fluids, continuous TPN and drips, give furosemide today. We'll also add fentanyl infusion for baseline pain control in the postoperative state. Also on propofol for sedation. June 19: Patient seen examined, [facility] pressors [facility] labs reviewed , worsening leucocytosis today at 16.3, CXR shows patient has bibasilar infiltrates. The patient was weaned off sedation this AM she opened eyes but did not follow commands, She became tachypenic and tachycardic, on wean trial. Pt TV was increased overnight by RT, changed back to 360 this AM repeat ABG to be done in 30 mins. Vancomycin was added yesterday in light of pulmonary infiltrates, Vent parameters AC mode, TV 360 (was 420 in AM), RR 16, Fio2 40, PEEP 5. Peak pressure 26-28, Plat 19-23, I/0 Pt was negative 1225 yesterday. sedation: propofol and fentanyl Diet TPN Riggs in place Right SC in place for central venous access June 20 Patient seen exmined, sedated on vent, Sedation was held this AM, and patient mental status improved, she was better than yesterday, did follow some commands. Placed on pressure support of 7, but became tachycardic and tachypenic after sometime. placed back on AC mode Her wbc is creeping up, we tried to change antibiotics from zosyn to carbapenum , but we are in short supply at this time. Xray done this AM shows significant worsening in her infiltrtes, chf vs ards Vent parameters AC mode TV 360, RR 12 (set), PEEP 5, Fio2 40, Plat 18-24, Peak 25-28 ABG 7.42/45/83 Lact 0.5 Patient responding well to diuresis, was neg 3L yesterday. June 21 Aly wheeler examined no acute overnight issues X ray stable today ABG stable, ph 7.45/45/79, Vent setting unchanged. Peak pressure 25, plat 22 WBC imprving on albumin and lasix bid for gen edema/ ards/ chf off propofol for today to see how she does with her mental status only on fenanyl, mental status much better, able to follow commands and nod to some questions. Plan of care reviewed with the patients daugther June 22 patien seen examined, good mental status off sedatives, following commands She did well on weaning parameters for extubation, vasyl index < 105, SBT on 7 SP was well tolerated with good tidal volues pt extubated this AM, however was short of breath on extubation, She was given duonebs and palced on bipap. The aptient repeat abg was good, x ray showed pulmonary congestion. IV lasix and bipap continued. She is obeying c ommands. for now Sputum cx is suggestive of pseudomonas. d/c vanco, IV cipro added. continue zosyn. wbc mildy uptrended today but pt was on steroids June 23: patient seen examined, no acute overnight issues patient this AM is off bipap and is able on 6L oxygen, still has some shortness of breath ABG showed metabolic alkalosis Continue IV lasixi for diuresis, pt was neg 2.5 L yesterday still has positive 2.5L since admission. Mental status much better able to communicate well On iv zosyn and cipro and flagyl wbc trended down today June 24 Patient seen examined no acute overnight issues patient was on bipap overnight, and is back on nasal canula, bipap used to give some support and help her relax patient is neg now since admission, dose of lasix cut down to 20mg bid, to ensure that she does not get fluid overloaded with her tpn and other fluids resume oral diet as tolerated CXR shows slight worsening of congestion overall we seem to be making good progress June 25 Patient seen examined no acute overnight events, patient was sob this AM and was placed on bipap, 10/5 , fio2 25, tolerating well increase dose of lasix from 20mg bid to 40mg bid Calorie count initiated still on TPN June 26 Patient seen examined, no acute overnight events, not needed bipap but is very weak and fatigued, minimal activity makes her short of breath The patient denies any complaints but seems to be some what frustrated that it s taking her long to recover. Diet is being advanced caloric intake was less than 25% of needs hence TNP will continue cxr improved continue to monitor xfer to tele status in AM tomorrow if resp status remains stable. Pertinent ROS: Denies headache, dizziness Denies chest pain, palpitations Denies cough or shortness of breath Denies abdominal pain, nausea or vomiting. - Constitutional Vitals: Vital Signs Temp Pulse Resp BP Pulse Ox 98.7 F 68 16 93/65 95 06/26/17 14:00 06/26/17 15:04 06/26/17 15:04 06/26/17 15:02 06/26/17 15:04 Period Temp Pulse Resp BP Sys/[place] Pulse Ox Last 24 Hr 98.1 F-99.5 F 58-100 16-28 86-134/48-79 90-99 Intake and Output 06/26/17 06/26/17 06/26/17 05:59 13:59 21:59 Intake Total 1660.6162 / 1660.6162 500 / 500 Output Total 1800 / 1800 1450 / 1450 Balance -139.3838 / -139.3838 -950 / -950 Intake & Output: Intake & Output 06/26/17 06/26/17 06/26/17 05:59 13:59 21:59 Intake Total 1660.6162 / 1660.6162 500 / 500 Output Total 1800 / 1800 1450 / 1450 Balance -139.3838 / -139.3838 -950 / -950 Intake: IV 1660.6162 / 1660.6162 500 / 500 Calcium Gluconate 5 Meq 1060.6162 / 1060.6162 Magnesium Sulfate 8.12 Meq Sodium Chloride 40 Meq Potassium Phosphate 50 Meq Infuvite Adult 10 ml Selenium 60 Mcg Potassium Chloride 30 Meq In Clinimix 5%-20% Solution 1,000 ml @ 50 mls/hr IV Q21H [facility] Rx#:[id number] Intralipid 20% 250 ml In Premix 250 / 250 1 Bag @ 25 mls/hr IV DAILY@ 1600 [facility] Rx#:[id number] Zosyn 3.375 gm In Sodium 50 / 50 100 / 100 Chloride 0.9% 50 ml @ 100 mls/ hr IV Q6H [facility] Rx#:[id number] Output: Urine Catheter Amount 1700 / 1700 1450 / 1450 Stool 100 / 100 Exam: Constitutional; Afebrile, cooperative, alert, not in distress. Eyes- No icterus, , No periorbital swelling Ears- Ext ear normal, hearing normal to conversation. Neck- Midline trachea, supple Respiratory system: Air Entry equal on both sides, justin exp wheeze, pt does seem to have some accesory muscle use for respiration, but thinks she is doing fine, and does not complaint of any resp issue CVS- Rate rhythm regular, S1,S2 heard, no gallop, no rub. Abdomen- Soft nontender abdomen, no organomegaly, no tenderness, no guarding or rigidity, 2 ostomy bags noted and draining well NURSE GYNECOLOGY- AOOx3, moving all extremities, no gross focal deficit noted. Medical - PN: Obj Da - Labs CBC & Chem 7: 06/25/17 04:38 06/26/17 04:00 Labs: Abnormal Lab Results 06/26/17 06/25/17 06/25/17 04:00 04:38 04:38 WBC 12.0 H RBC 3.29 L Hgb 8.7 L Hct 26.7 L RDW 17.4 H Plt Count Seg Neutrophils % 88 H Lymphocytes % 4 L WBC Morphology Abnorm A Toxic Granulation 1+ A RBC Morphology Abnorm A Anisocytosis 1+ A PT 15.7 H INR 1.2 H Carbon Dioxide Anion Gap BUN 32 H Creatinine 0.5 L Glucose 118 H Uric Acid 2.4 L Calcium 8.2 L GGT 72 H Total Protein 4.9 L Albumin 2.6 L 06/25/17 06/24/17 06/24/17 04:38 04:00 04:00 WBC 13.6 H RBC 3.49 L Hgb 9.1 L Hct 28.1 L RDW 17.2 H Plt Count 472 H Seg Neutrophils % 93 H Lymphocytes % 2 L WBC Morphology Toxic Granulation RBC Morphology Anisocytosis PT INR Carbon Dioxide 31 H Anion Gap 7.0 L BUN 33 H 30 H Creatinine 0.5 L Glucose 110 H 179 H Uric Acid 2.2 L 2.4 L Calcium 8.3 L 8.4 L GGT 73 H 78 H Total Protein 4.7 L 4.9 L Albumin 2.5 L 2.7 L Meds: Medications Acetaminophen (Tylenol) 650 mg PO Q6HP PRN PRN Reason: PAIN/FEVER > 101 Albuterol/Ipratropium (Duoneb) 3 ml NEB Q4HRT [facility] Last Admin: 06/26/17 15:04 Dose: 3 ml Albuterol/Ipratropium (Duoneb) 3 ml NEB Q4HP PRN PRN Reason: Shortness Of Breath Or Wheezing Last Admin: 06/22/17 11:05 Dose: 3 ml Artificial Tears (Artificial Tears Ophth Drops) 1 gtt OD QIDP PRN PRN Reason: Dry Eye(s) Last Admin: 06/20/17 13:10 Dose: 1 gtt Chlorhexidine Gluconate (Peridex) 15 ml SWABMOUTH BID [facility] Last Admin: 06/26/17 09:35 Dose: 15 ml Dextrose (Dextrose 50%) 25 ml IV UD PRN PRN Reason: Hypoglycemia Dextrose (Dextrose 50%) 0 ml IV UD PRN PRN Reason: Hypoglycemia Diagnostic Test (Pha) (Accu-Chek) 1 each FS Q6 [facility] Last Admin: 06/26/17 12:41 Dose: 1 each Fluconazole (Diflucan) 100 mg PO DAILY [facility] Last Admin: 06/26/17 09:34 Dose: 100 mg Furosemide (Lasix) 40 mg IV Q12 [facility] Last Admin: 06/26/17 09:35 Dose: 40 mg Heparin Sodium (Porcine) (Heparin) 5,000 unit SQ Q12 [facility] Last Admin: 06/26/17 09:34 Dose: 5,000 unit Hydromorphone HCl (Dilaudid) 0.5 mg IV Q1HP PRN PRN Reason: Pain Last Admin: 06/26/17 14:50 Dose: 0.5 mg Metronidazole (Flagyl) 500 mg in 100 mls @ 100 mls/hr IV Q6H [facility] Last Infusion: 06/26/17 12:44 Dose: Infused Acetaminophen (Ofirmev) 1,000 mg in 100 mls @ 200 mls/hr IV Q6HP PRN PRN Reason: PAIN/FEVER > 101 Last Infusion: 06/23/17 08:57 Dose: Infused Piperacillin Sod/Tazobactam (Sod 3.375 gm/ Sodium Chloride) 50 mls @ 100 mls/ hr IV Q6H [facility] Last Infusion: 06/26/17 13:11 Dose: Infused Norepinephrine Bitartrate 16 (mg/ Sodium Chloride) 250 mls @ 9.37 mls/hr IV Q24HP PRN; Protocol; 10 MCG/MIN PRN Reason: TITRATE TO KEEP MAP > 65 Ciprofloxacin (Cipro) 400 mg in 200 mls @ 200 mls/hr IV Q12H [facility] Last Infusion: 06/26/17 11:29 Dose: Infused Fat Emulsion Intravenous 250 (ml/ Premix) 250 mls @ 25 mls/hr IV DAILY@1600 [facility] Last Infusion: 06/26/17 05:40 Dose: Infused Calcium Gluconate 5 meq/Magnesium Sulfate 8.12 meq/Sodium Chloride 40 meq/ Potassium Phosphate 50 meq/Multivitamins/Minerals 10 ml/Selenium 60 mcg/ Potassium Chloride 30 meq/ Amino Acids 1,060.6162 mls @ 50 mls/hr IV Q21H [facility] Last Admin: 06/26/17 02:15 Dose: 50 mls/hr Insulin Human Lispro (Humalog) 0 unit SQ Q6 [facility] PRN Reason: Protocol Last Admin: 06/26/17 12:41 Dose: 1 unit Lorazepam (Ativan) 1 mg IV Q4-6HP PRN PRN Reason: ANXIETY/SEDATION Last Admin: 06/26/17 04:45 Dose: 1 mg Ondansetron HCl (Zofran) 4 mg IV Q6HP PRN PRN Reason: Nausea And Vomiting Pantoprazole Sodium (Protonix) 40 mg IV BIDAC [facility] Last Admin: 06/26/17 08:21 Dose: 40 mg Prednisone (Prednisone) 40 mg PO QAC [facility] Last Admin: 06/26/17 08:21 Dose: 40 mg Sodium Chloride (Saline Flush) 10 ml IV UD PRN PRN Reason: medication Last Admin: 06/25/17 16:24 Dose: 10 ml Sodium Chloride (Saline Flush) 10 ml IV Q8 [facility] Last Admin: 06/26/17 14:51 Dose: 10 ml Medical - PN: A/P - Time Spent With Patient Total time spent is greater than 50% in coordination of care (as documented) at patient's floor/unit and/or counseling patient: - Narrative A/P Narrative: 77-year-old female without GI illness (though in retrospect has had diverticulitis in past) presents with abdominal pain, nausea and vomiting. Also has urinary tract infection. Evolution of distal colonic obstruction, subsequently went to the operating room on 06/14, resection of sigmoid mass, a contained perforation of transverse colon and spontaneous rupture of right colon intraoperatively. Acute diverticulitis. . Postop day # 12 , status post exploratory laparotomy, hemicolectomy with ileostomy, Clark's procedure with mucous fistula. both draining well Now Post-op day #9 from re-look and delayed closure. Plan: management Per surgery, continue Zosyn and metronidazole, add basal fentanyl for postoperative analgesia. HCAP PNA: Pseudomonas levine sensitive on culture, on cipro and zosyn, also on Flagyl Acute respiratory failure : ARDS vs CHF Vs PNA Post extubation day 3 on Nasal canula and prn bipap now, wean down as tolerated asthma: on duonebs q4hrs , po prednisone , wean down gradually, no wheeze on exam Malnutrition on TPN, will continue same for now, oral feeds as tolerated, calorie count noted , very poor oral intake. Hypokalemia / Hypomagnesemia. replace as needed Anemia: likely related to underlying infection, monitor for now, hb stable. CODE STATUS, discussed with the patient at admission, is DNR Prophylaxis: Protonix, SCD's hep sq Critical care time spent > 30mins in monitoring abg, x ray, antibiotics, nutrition, . Procedures - Arterial Line Size (Gauge): 20
[2017-06-26] MEDS: FAT EMULSION 20% 250 ML in PREMIX 1 BAG IV SCH (15:51)
[2017-06-27] MEDS: PIPERACILLIN SODIUM/TAZOBACTAM 3.375 GM in 0.9 % SODIUM CHLORIDE 50 ML IV SCH ×4 (00:45→18:00)
[2017-06-27] MEDS: IPRATROPIUM/ALBUTEROL 3 ML AMPUL.NEB NEB SCH ×6 (03:24→23:25)
[2017-06-27] MEDS: metroNIDAZOLE 500 MG/100 ML BAG IV SCH ×2 (04:46→07:07)
[2017-06-27] MEDS: LORazepam 2 MG/ML VIAL IV PRN ×3 (04:59→22:50)
[2017-06-27 06:30] LABS: Basophils # (Auto) 0 K/mcL (0.0-0.3); Basophils % (Auto) 0 % (0.0-2.0); Eosinophils # (Auto) 0.2 K/mcL (0.0-0.7); Eosinophils % (Auto) 1.2 % (0.0-7.0); Lymphocytes # (Auto) 0.5 K/mcL (1.5-4.8); Lymphocytes % (Auto) 4.2 % (15.5-49.0); Mean Cell Volume 81.2 fL (80.0-100.0); Mean Corpuscular HGB Conc 32.6 g/dL (31.0-36.0); Mean Corpuscular Hemoglobin 26.4 pg (26.0-34.0); Monocytes # (Auto) 0.9 K/mcL (0.1-0.9); Monocytes % (Auto) 6.6 % (1.0-12.0); Platelet Count 491 K/mcL (140-440); RBC 3.54 M/mcL (4.00-5.20); Red Cell Distribution Width 18.1 % (11.5-14.5)
[2017-06-27 06:49] LABS: ALT/SGPT 10 U/l (0-40); Albumin 2.9 gm/dL (3.2-5.2); Albumin/Globulin Ratio 1.2 (1.0-2.3); Alkaline Phosphatase 54 U/L (39-117); Bilirubin,Direct < 0.2 mg/dL (0.0-0.3); Blood Urea Nitrogen 25 mg/dl (8-23); Gamma Glutamyl Transpeptidase 69 U/L (5-36); Magnesium 2.2 mg/dL (1.6-2.5); Uric Acid 2.3 mg/dL (2.5-8.0)
[2017-06-27] MEDS: HYDROmorphone 2 MG/ML SYRINGE IV PRN ×2 (07:08→22:50)
[2017-06-27] MEDS: FUROSEMIDE 20 MG/2 ML VIAL IV SCH (07:09)
[2017-06-27] MEDS: INSULIN LISPRO 1 UNIT/0.01 ML UNIT SQ SCH ×3 (07:30→18:11)
[2017-06-27] MEDS: PANTOPRAZOLE 40 MG VIAL IV SCH ×2 (07:46→18:10)
[2017-06-27] MEDS: 0.9 % SODIUM CHLORIDE 10 ML SYRINGE IV SCH ×3 (07:48→20:41)
[2017-06-27] MEDS ORDERED: VANCOMYCIN PER PHARMACY IV SCH ×2 (10:35→16:50)
[2017-06-27] MEDS: FLUCONAZOLE 100 MG TABLET PO SCH (11:31)
[2017-06-27] MEDS: HEPARIN 5,000 UNIT/ML VIAL SQ SCH ×2 (11:34→20:40)
[2017-06-27] MEDS: predniSONE 20 MG TABLET PO SCH (11:43)
[2017-06-27] MEDS: CHLORHEXIDINE GLUCONATE 1 ML ORAL.SOL SWABMOUTH SCH ×2 (11:43→20:40)
[2017-06-27] MEDS ORDERED: VANCOMYCIN 1,000 MG in 0.9 % SODIUM CHLORIDE 250 ML IV SCH (12:00)
[2017-06-27 13:09] LABS: Appearance,Urine CLEAR; Bacteria,Urine FEW /hpf (0); Bilirubin,Urine NEG (NEG); Color,Urine STRAW; Glucose,Urine (UA) NEGATIVE (NEG); Leukocyte Esterase,Urine 25 /uL (NEG); Mucus,Urine FEW /hpf (0); Nitrate,Urine NEG (NEG); Protein,Urine NEG (NEG); Specific Gravity,Urine 1.011 (1.000-1.035); Urine Blood NEG mg/dL (<0.03); Urine Hyaline Cast 4 /lpf (0-2); Urine RBC 1 /hpf (0-1); Urine Squamous Epithelial Cell 0 /hpf (0-4); Urine Transitional Epi Cells < 1 /hpf (0-2); Urine WBC 3 /hpf (0-4); Urobilinogen,Urine NEG (NEG)
[2017-06-27] MEDS: CIPROFLOXACIN 400 MG/200 ML BAG IV SCH (14:06)
--- NOTE | 2017-06-27 14:11 | Internal Med Progress Note ---
Medical - PN: Subj Patient information: Note initiated : 06/27/17 at 2:07 pm Service Date, if different from initiated Date: [] Patient: Caroline Bellamy a 77 y/o F admitted on 06/12/17 for N/V, UTI, Constipation/Colon Obstruction, UTI. Chief Complaint: [] Interval history: June 12 Ms. Adiel Cardoso is a 77 year old F who presents to the ED with ongoing complaints of abdominal pain. Patient awoke last Thursday with abdominal pain. She was also nauseated. She was seen in the emergency department due to ongoing symptoms on Thursday, 06/08. CT scan at that time showed some colonic thickening and wall edema without significant inflammatory changes. There was also diverticulosis. She had evidence of urinary tract infection and was started on Septra. Patient remained nauseated and was unable to take the Septra. She continued to have significant abdominal pain, up to 06/09. On the day following her ED visit , she was nauseated and was unable to keep anything down. She presented back to the emergency department, had Bactrim stopped and was changed over to ciprofloxacin. Neither the patient nor her family were aware that a new prescription of been generated and it was never picked up. On Thursday and she continued to have vomiting which was without blood. She continued to have significant abdominal pain up to "08/09". She presents back to the emergency department today because of ongoing abdominal pain, nausea and vomiting. With the onset of the pain a week ago, the pain was severe and was in the left lower quadrant, changing over to the right lower quadrant and becoming generalized as last week has progressed. She describes the quality of the pain is constant and aching with intermittent bouts of stabbing pain. Associated with nausea, vomiting without hematemesis. She has hydrocodone prescription for chronic back pain, that has helped her pain somewhat, though she has had some difficulty keeping medications down. She tried an oral Zofran, was able to keep one done yesterday, but not today. June 13 She is still complaining of significant abdominal pain, more so on the right side from the right upper and right lower quadrant. Tolerating clears, nausea has improved, no ecchymosis. She did have one small hard bowel movement, then to softer ones. She did receive bisacodyl rectally, also oral milk of magnesia and senna last evening. No fever, no chills. No significant dyspnea, has used 1 as needed nebulizer therapy. CT of the abdomen and pelvis was obtained due to ongoing pain. Spoke with radiology, films reviewed, she has dilated colon, ascending, transverse, descending with a transition point in the sigmoid where it decompresses. No pericolonic inflammatory changes, no mural thickening. Patient currently undergoing delayed images to see if there is passage of contrast. June 14 Still complaining of abdominal pain. Had some desaturation overnight, on oxygen. Received dose of furosemide earlier today. Still requiring regular Dilaudid today, though when I see her this morning the interval between when necessary doses has increased somewhat. Final results of CTAP yesterday without passage of contrast. I discussed the case with Dr. Eubanks last evening, he is seeing the patient today , plans to take to the operating room. Her white count was increased to 22,000 today. Ceftriaxone changed to Zosyn this morning. June 15 Patient currently in the intensive care unit following surgery yesterday. Had inflammatory mass causing sigmoid obstruction. Subsequently had rupture of right colon intraoperatively, necessitating colectomy and washout. 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 Wound is being packed open. Overnight patient received fluid resuscitation of 6 L NS, did achieve adequate CVP, still required norepinephrine. Today receiving packed red blood cells, still on norepinephrine, though that has been titrated down a bit. Remains sedated with propofol on ventilator. Plan to go back to the OR Thursday for washout and possible closure. June 16 Patient remained stable, ventilated and sedated. Remains on some Levophed for blood pressure support. Diuresed well with 40 mg of furosemide yesterday. Still with significant thigh and arm edema. Right pleural effusion on radiograph today, though infiltrates/atelectasis improves. Arterial line started to dampen and not function overnight, was removed. June 17 Patient now postop after planned second look exploratory laparotomy. No evidence of intra-abdominal abscess, final closure performed. Some increased airway pressures postoperatively, had been bagged on the way back to the ICU, which may explain some of her airway pressures and an increase in FiO2, seemed to be improving as the afternoon progresses. Nonpitting edema, urine output is adequate but not brisk, on 100 mils an hour fluid. Still on TPN. Still requiring some NE for BP support. June 18 Norepinephrine weaned off overnight. Remains significantly volume long. During wake up trial this morning, became tachypnea can airway pressures went up , did withdrawal from lower extremity stimuli, but did not open eyes to voice or respond upper extremity stimulus. Had to be re-sedated before this could happen due to her status. Chest x-ray showing some worsening congestion. Between TPN, drips and IV fluids containing almost 200 mL an hour. Will DC maintenance fluids, continuous TPN and drips, give furosemide today. We'll also add fentanyl infusion for baseline pain control in the postoperative state. Also on propofol for sedation. June 19: Patient seen examined, off pressors but [facility]. labs reviewed , worsening leucocytosis today at 16.3, CXR shows patient has bibasilar infiltrates. The patient was weaned off sedation this AM she opened eyes but did not follow commands, She became tachypenic and tachycardic, on wean trial. Pt TV was increased overnight by RT, changed back to 360 this AM repeat ABG to be done in 30 mins. Vancomycin was added yesterday in light of pulmonary infiltrates, Vent parameters AC mode, TV 360 (was 420 in AM), RR 16, Fio2 40, PEEP 5. Peak pressure 26-28, Plat 19-23, I/0 Pt was negative 1225 yesterday. sedation: propofol and fentanyl Diet TPN Riggs in place Right SC in place for central venous access June 20 Patient seen exmined, sedated on vent, Sedation was held this AM, and patient mental status improved, she was better than yesterday, did follow some commands. Placed on pressure support of 7, but became tachycardic and tachypenic after sometime. placed back on AC mode Her wbc is creeping up, we tried to change antibiotics from zosyn to carbapenum , but we are in short supply at this time. Xray done this AM shows significant worsening in her infiltrtes, chf vs ards Vent parameters AC mode TV 360, RR 12 (set), PEEP 5, Fio2 40, Plat 18-24, Peak 25-28 ABG 7.42/45/83 Lact 0.5 Patient responding well to diuresis, was neg 3L yesterday. June 21 Aly wheeler examined no acute overnight issues X ray stable today ABG stable, ph 7.45/45/79, Vent setting unchanged. Peak pressure 25, plat 22 WBC imprving on albumin and lasix bid for gen edema/ ards/ chf off propofol for today to see how she does with her mental status only on fenanyl, mental status much better, able to follow commands and nod to some questions. Plan of care reviewed with the patients daugther June 22 patien seen examined, good mental status off sedatives, following commands She did well on weaning parameters for extubation, vasyl index < 105, SBT on 7 SP was well tolerated with good tidal volues pt extubated this AM, however was short of breath on extubation, She was given duonebs and palced on bipap. The aptient repeat abg was good, x ray showed pulmonary congestion. IV lasix and bipap continued. She is obeying c ommands. for now Sputum cx is suggestive of pseudomonas. d/c vanco, IV cipro added. continue zosyn. wbc mildy uptrended today but pt was on steroids June 23: patient seen examined, no acute overnight issues patient this AM is off bipap and is able on 6L oxygen, still has some shortness of breath ABG showed metabolic alkalosis Continue IV lasixi for diuresis, pt was neg 2.5 L yesterday still has positive 2.5L since admission. Mental status much better able to communicate well On iv zosyn and cipro and flagyl wbc trended down today June 24 Patient seen examined no acute overnight issues patient was on bipap overnight, and is back on nasal canula, bipap used to give some support and help her relax patient is neg now since admission, dose of lasix cut down to 20mg bid, to ensure that she does not get fluid overloaded with her tpn and other fluids resume oral diet as tolerated CXR shows slight worsening of congestion overall we seem to be making good progress June 25 Patient seen examined no acute overnight events, patient was sob this AM and was placed on bipap, 10/5 , fio2 25, tolerating well increase dose of lasix from 20mg bid to 40mg bid Calorie count initiated still on TPN June 26 Patient seen examined, no acute overnight events, not needed bipap but is very weak and fatigued, minimal activity makes her short of breath The patient denies any complaints but seems to be some what frustrated that it s taking her long to recover. Diet is being advanced caloric intake was less than 25% of needs hence TNP will continue cxr improved continue to monitor xfer to tele status in AM tomorrow if resp status remains stable. june 27 Patient seen examined no acute overnight issues this AM was sob, and needed bipap for a short while repeat X rah shows some congestion vs pna resume IV vanco disucssed with surgery on need for flagyl and enteral feeds, plan to d/c fl; agyl but continue TPN for now low grade temp this AM, and slight worsening ofwbc repeat blood and urine cx ordered. Pertinent ROS: Denies headache, dizziness Denies chest pain, palpitations Denies cough or shortness of breath Denies abdominal pain, nausea or vomiting. - Constitutional Vitals: Vital Signs Temp Pulse Resp BP Pulse Ox 100.2 F H 93 H 24 H 90/66 97 06/27/17 13:05 06/27/17 14:01 06/27/17 13:12 06/27/17 14:01 06/27/17 14:01 Period Temp Pulse Resp BP Sys/[place] Pulse Ox Last 24 Hr 97.8 F-100.7 F 43-100 16-24 58-130/24-79 93-100 Intake and Output 06/27/17 06/27/17 06/27/17 05:59 13:59 21:59 Intake Total 1160 / 1160 50 / 50 250 / 250 Output Total 2300 / 2300 770 / 770 Balance -1140 / -1140 -720 / -720 250 / 250 Intake & Output: Intake & Output 06/27/17 06/27/17 06/27/17 05:59 13:59 21:59 Intake Total 1160 / 1160 50 / 50 250 / 250 Output Total 2300 / 2300 770 / 770 Balance -1140 / -1140 -720 / -720 250 / 250 Intake: IV 1160 / 1160 50 / 50 250 / 250 Calcium Gluconate 5 Meq 1010 / 1010 Magnesium Sulfate 8.12 Meq Sodium Chloride 40 Meq Potassium Phosphate 50 Meq Infuvite Adult 10 ml Selenium 60 Mcg Potassium Chloride 30 Meq In Clinimix 5%-20% Solution 1,000 ml @ 50 mls/hr IV Q21H [facility] Rx#:[id number] Zosyn 3.375 gm In Sodium 50 / 50 50 / 50 Chloride 0.9% 50 ml @ 100 mls/ hr IV Q6H [facility] Rx#:[id number] Vancomycin 1,000 mg In Sodium 250 / 250 Chloride 0.9% 250 ml @ 250 mls/ hr IV Q24H [facility] Rx#:[id number] Output: Urine Catheter Amount 2300 / 2300 700 / 700 Stool 50 / 50 Emesis Exam: Constitutional; low grade temp, cooperative, alert, not in distress. but very weak Eyes- No icterus, , No periorbital swelling Ears- Ext ear normal, hearing normal to conversation. Neck- Midline trachea, supple Respiratory system: Air Entry equal on both sides, No crackles or wheezing, no rhonchi. CVS- Rate rhythm regular, S1,S2 heard, no gallop, no rub. Abdomen- Soft nontender abdomen, no organomegaly, no tenderness, no guarding or rigidity, RELATIONS LIAISON- AOOx3, moving all extremities, no gross focal deficit noted. Medical - PN: Obj Da - Labs CBC & Chem 7: 06/27/17 04:10 06/27/17 04:10 Labs: Abnormal Lab Results 06/27/17 06/27/17 06/27/17 12:25 04:10 04:10 WBC 13.2 H RBC 3.54 L Hgb 9.4 L Hct 28.8 L RDW 18.1 H Plt Count 491 H Gran % 88.0 H Lymph % (Auto) 4.2 L Gran # 11.6 H Lymph # (Auto) 0.5 L Seg Neutrophils % Lymphocytes % WBC Morphology Toxic Granulation RBC Morphology Anisocytosis PT INR BUN 25 H Creatinine 0.5 L Glucose 118 H Uric Acid 2.3 L Calcium 8.4 L Phosphorus 2.6 L GGT 69 H NT-Pro-B Natriuret Pep 1087.0 H Total Protein 5.4 L Albumin 2.9 L Ur Leukocyte Esterase 25 A Urine Bacteria Few A Hyaline Casts 4 H 06/26/17 06/25/17 06/25/17 04:00 04:38 04:38 WBC 12.0 H RBC 3.29 L Hgb 8.7 L Hct 26.7 L RDW 17.4 H Plt Count Gran % Lymph % (Auto) Gran # Lymph # (Auto) Seg Neutrophils % 88 H Lymphocytes % 4 L WBC Morphology Abnorm A Toxic Granulation 1+ A RBC Morphology Abnorm A Anisocytosis 1+ A PT 15.7 H INR 1.2 H BUN 32 H Creatinine 0.5 L Glucose 118 H Uric Acid 2.4 L Calcium 8.2 L Phosphorus GGT 72 H NT-Pro-B Natriuret Pep Total Protein 4.9 L Albumin 2.6 L Ur Leukocyte Esterase Urine Bacteria Hyaline Casts 06/25/17 04:38 WBC RBC Hgb Hct RDW Plt Count Gran % Lymph % (Auto) Gran # Lymph # (Auto) Seg Neutrophils % Lymphocytes % WBC Morphology Toxic Granulation RBC Morphology Anisocytosis PT INR BUN 33 H Creatinine Glucose 110 H Uric Acid 2.2 L Calcium 8.3 L Phosphorus GGT 73 H NT-Pro-B Natriuret Pep Total Protein 4.7 L Albumin 2.5 L Ur Leukocyte Esterase Urine Bacteria Hyaline Casts Meds: Medications Acetaminophen (Tylenol) 650 mg PO Q6HP PRN PRN Reason: PAIN/FEVER > 101 Albuterol/Ipratropium (Duoneb) 3 ml NEB Q4HRT [facility] Last Admin: 06/27/17 13:06 Dose: 3 ml Albuterol/Ipratropium (Duoneb) 3 ml NEB Q4HP PRN PRN Reason: Shortness Of Breath Or Wheezing Last Admin: 06/22/17 11:05 Dose: 3 ml Artificial Tears (Artificial Tears Ophth Drops) 1 gtt OD QIDP PRN PRN Reason: Dry Eye(s) Last Admin: 06/20/17 13:10 Dose: 1 gtt Chlorhexidine Gluconate (Peridex) 15 ml SWABMOUTH BID [facility] Last Admin: 06/27/17 11:43 Dose: 15 ml Dextrose (Dextrose 50%) 25 ml IV UD PRN PRN Reason: Hypoglycemia Dextrose (Dextrose 50%) 0 ml IV UD PRN PRN Reason: Hypoglycemia Diagnostic Test (Pha) (Accu-Chek) 1 each FS Q6 [facility] Last Admin: 06/27/17 13:00 Dose: 1 each Fluconazole (Diflucan) 100 mg PO DAILY [facility] Last Admin: 06/27/17 11:31 Dose: 100 mg Furosemide (Lasix) 40 mg IV DAILY [facility] Heparin Sodium (Porcine) (Heparin) 5,000 unit SQ Q12 [facility] Last Admin: 06/27/17 11:34 Dose: 5,000 unit Hydromorphone HCl (Dilaudid) 0.5 mg IV Q1HP PRN PRN Reason: Pain Last Admin: 06/27/17 07:08 Dose: 0.5 mg Acetaminophen (Ofirmev) 1,000 mg in 100 mls @ 200 mls/hr IV Q6HP PRN PRN Reason: PAIN/FEVER > 101 Last Infusion: 06/23/17 08:57 Dose: Infused Piperacillin Sod/Tazobactam (Sod 3.375 gm/ Sodium Chloride) 50 mls @ 100 mls/ hr IV Q6H [facility] Last Admin: 06/27/17 12:45 Dose: 100 mls/hr Norepinephrine Bitartrate 16 (mg/ Sodium Chloride) 250 mls @ 9.37 mls/hr IV Q24HP PRN; Protocol; 10 MCG/MIN PRN Reason: TITRATE TO KEEP MAP > 65 Fat Emulsion Intravenous 250 (ml/ Premix) 250 mls @ 25 mls/hr IV DAILY@1600 [facility] Last Admin: 06/26/17 15:51 Dose: 25 mls/hr Calcium Gluconate 5 meq/Magnesium Sulfate 8.12 meq/Sodium Chloride 40 meq/ Potassium Phosphate 50 meq/Multivitamins/Minerals 10 ml/Selenium 60 mcg/ Potassium Chloride 30 meq/ Amino Acids 1,060.6162 mls @ 50 mls/hr IV Q21H [facility] Stop: 06/27/17 18:59 Last Admin: 06/26/17 22:27 Dose: 50 mls/hr Calcium Gluconate 5 meq/Magnesium Sulfate 8.12 meq/Sodium Chloride 40 meq/ Potassium Phosphate 60 meq/Multivitamins/Minerals 10 ml/Selenium 60 mcg/ Potassium Chloride 30 meq/ Amino Acids 1,062.889 mls @ 50 mls/hr IV Q21H [facility] Vancomycin HCl 1,000 mg/ (Sodium Chloride) 250 mls @ 250 mls/hr IV Q24H [facility] Last Infusion: 06/27/17 14:04 Dose: Infused Insulin Human Lispro (Humalog) 0 unit SQ Q6 [facility] PRN Reason: Protocol Last Admin: 06/27/17 13:23 Dose: 1 unit Lorazepam (Ativan) 1 mg IV Q4-6HP PRN PRN Reason: ANXIETY/SEDATION Last Admin: 06/27/17 07:45 Dose: 1 mg Ondansetron HCl (Zofran) 4 mg IV Q6HP PRN PRN Reason: Nausea And Vomiting Last Admin: 06/27/17 13:19 Dose: 4 mg Pantoprazole Sodium (Protonix) 40 mg IV BIDAC [facility] Last Admin: 06/27/17 07:46 Dose: 40 mg Prednisone (Prednisone) 40 mg PO QAC [facility] Last Admin: 06/27/17 11:43 Dose: 40 mg Sodium Chloride (Saline Flush) 10 ml IV UD PRN PRN Reason: medication Last Admin: 06/25/17 16:24 Dose: 10 ml Sodium Chloride (Saline Flush) 10 ml IV Q8 [facility] Last Admin: 06/27/17 13:24 Dose: 10 ml Vancomycin HCl (Vancomycin Per Pharmacy) 1 order IV UD [facility] Medical - PN: A/P - Time Spent With Patient Total time spent is greater than 50% in coordination of care (as documented) at patient's floor/unit and/or counseling patient: - Narrative A/P Narrative: 77-year-old female without GI illness (though in retrospect has had diverticulitis in past) presents with abdominal pain, nausea and vomiting. Also has urinary tract infection. Evolution of distal colonic obstruction, subsequently went to the operating room on 06/14, resection of sigmoid mass, a contained perforation of transverse colon and spontaneous rupture of right colon intraoperatively. Acute diverticulitis. . Postop day # 13 , status post exploratory laparotomy, hemicolectomy with ileostomy, Clark's procedure with mucous fistula. both draining well Now Post-op day #10 from re-look and delayed closure. Plan: management as per surgery, ok to feed orally as tolerated. HCAP PNA: Pseudomonas levine sensitive, given new fever and rising wbc add vanco back Acute respiratory failure : ARDS vs CHF Vs PNA Post extubation day 4 Still needs prn bipap patient is neg fluid balance from admission now will cut back lasix to once daily monitor prn bipap as needed asthma: on duonebs q4hrs , po prednisone , wean down gradually, no wheeze on exam Malnutrition on TPN, will continue same for now, oral feeds as tolerated, calorie count noted , very poor oral intake. not candiate for NG feeds as if aspiratees has poor pulmonary reserve. Hypokalemia / Hypomagnesemia. replace as needed Anemia: likely related to underlying infection, monitor for now, hb stable. CODE STATUS, discussed with the patient at admission, is DNR Prophylaxis: Protonix, SCD's hep sq ok to Xfer to tele status. Procedures - Arterial Line Size (Gauge): 20
--- NOTE | 2017-06-27 14:14 | XRay Report ---
History: Fever and shortness of breath There are mild generalized infiltrates in both lungs with the greatest involvement in the lower lobes. There is still a band of discoid atelectasis in the lingula. The heart size is normal. A 9 x 12 mm nodule is again noted laterally in the right upper thorax. The pulmonary vessels, best seen in the upper lobes are still prominent. Overall there has been no significant change since 06/26/17. Impression: Persistent bilateral infiltrates and mild pulmonary vascular congestion. Right upper lobe nodular density Interpreted and Authenticated by: Varghese Reich 06/27/17
--- NOTE | 2017-06-27 14:19 | General Surgery Progress Note ---
Subjective Patient reports: flatus, bowel movement, fever Narrative: Note initiated : 06/27/17 at 2:16 pm Service Date, if different from initiated Date: [] Patient: Caroline Bellamy 77 y/o F admitted on 06/12/17 for N/V, UTI, Constipation/Colon Obstruction, UTI. Chief Complaint: [Patient looks clinically worse today though all of her vitals are stable. She has had some increase in labored breathing and she is much weaker and did not tolerate sitting up well. She states that she is very tired. She does not complain of any chest pain, shortness of breath, abdominal pain. Her white blood count is minimally changed and her chemistry panel is not significantly worsened. Dr. Collins has cultured her blood and urine. Her chest x-ray looks stable and slightly improved over the past 2 days with less fullness in the hilar and less interstitial fluffiness. Her p.o. intake is minimal so she will need continue TPN for the next few days.] Objective Temp Pulse Resp BP Pulse Ox 100.2 F H 93 H 24 H 90/66 97 06/27/17 13:05 06/27/17 14:01 06/27/17 13:12 06/27/17 14:01 06/27/17 14:01 - Additional Data Intake & Output - Last 24 hours: Intake & Output 06/25/17 06/26/17 06/27/17 06/28/17 05:59 05:59 05:59 05:59 Intake Total 3713.2325 / 3713.2325 2811.6162 / 2811.6162 1880 / 1880 300 / 300 Output Total 2866 / 2866 4870 / 4870 5275 / 5275 770 / 770 Balance 847.2325 / 847.2325 -2058.3838 / -2058.3838 -3395 / -3395 -470 / -470 Weight 153 lb 6 oz 146 lb 12.8 oz 143 lb 4.8 oz - General physical appearance moderate distress, chronically ill - Eyes PERRL - ENT no congestion - Neck no venous distension - Respiratory other (Coarse tubular breath sounds and coarse wheezes bilaterally) - Cardiovascular Cardiovascular exam: Present: RRR, +S1, +S2, systolic murmur, tachycardia. Absent: JVD - Abdomen soft, non tender (Abdominal exam is benign. It is not distended and she has good active bowel sounds. Her incision looks good and her stomas are very healthy. She does not have significant tenderness or guarding) - Integumentary no rash, no growths, no abnormal pigmentation - Neurologic other (Very weak diffusely but more musculoskeletal than neurologic) - Musculoskeletal other (Unable to tolerate tolerate standing or walking) - Psychiatric oriented to time, oriented to person, oriented to place, speech is normal, memory intact - Labs 06/27/17 04:10 06/27/17 04:10 Diabetes panel 06/27/17 Range/Units 04:10 Sodium 137 (133-145) mmol/L Potassium 3.8 (3.3-5.1) mmol/L Chloride 102 (96-108) mmol/L Carbon Dioxide 25 (22-30) mmol/L BUN 25 H (8-23) mg/dl Creatinine 0.5 L (0.6-1.1) mg/dl Glucose 118 H (70-105) mg/dL Calcium 8.4 L (8.6-10.4) mg/dl AST 11 (0-37) U/l ALT 10 (0-40) U/l Alkaline Phosphatase 54 (39-117) U/L Total Protein 5.4 L (5.9-8.4) gm/dL Albumin 2.9 L (3.2-5.2) gm/dL Triglycerides 136 (<150) mg/dl Calcium panel 06/27/17 Range/Units 04:10 Calcium 8.4 L (8.6-10.4) mg/dl Phosphorus 2.6 L (2.7-4.5) mg/dL Albumin 2.9 L (3.2-5.2) gm/dL Pituitary panel 06/27/17 Range/Units 04:10 Sodium 137 (133-145) mmol/L Potassium 3.8 (3.3-5.1) mmol/L Chloride 102 (96-108) mmol/L Carbon Dioxide 25 (22-30) mmol/L BUN 25 H (8-23) mg/dl Creatinine 0.5 L (0.6-1.1) mg/dl Glucose 118 H (70-105) mg/dL Calcium 8.4 L (8.6-10.4) mg/dl Adrenal panel 10/28/17 Range/Units 04:10 Sodium 137 (133-145) mmol/L Potassium 3.8 (3.3-5.1) mmol/L Chloride 102 (96-108) mmol/L Carbon Dioxide 25 (22-30) mmol/L BUN 25 H (8-23) mg/dl Creatinine 0.5 L (0.6-1.1) mg/dl Glucose 118 H (70-105) mg/dL Calcium 8.4 L (8.6-10.4) mg/dl Total Bilirubin 0.3 (0.0-1.0) mg/dL AST 11 (0-37) U/l ALT 10 (0-40) U/l Alkaline Phosphatase 54 (39-117) U/L Total Protein 5.4 L (5.9-8.4) gm/dL Albumin 2.9 L (3.2-5.2) gm/dL Assessment and Plan (1) Colon obstruction Problem details: Mass in sigmoid, resected 06/14/2017-diverticulitis Status: Acute Assessment and plan: General status is worse than on yesterday but no significant or specific organ system abnormality noted other than generalized weakness Current Visit: Yes (2) Anemia Status: Acute Assessment and plan: she has stable hgb over the past 24 hr Current Visit: Yes (3) UTI due to Klebsiella species Status: Resolved Assessment and plan: Resolved Current Visit: Yes - Time Spent With Patient Total time spent is greater than 50% in coordination of care (as documented) at patient's floor/unit and/or counseling patient:
[2017-06-27] MEDS ORDERED: ACETAMINOPHEN 325 MG TABLET PO PRN (16:50)
[2017-06-27] MEDS ORDERED: ONDANSETRON 4 MG/2 ML VIAL IV PRN (16:50)
[2017-06-27] MEDS ORDERED: DEXTROSE 50% 50 ML VIAL IV PRN ×2 (16:50)
[2017-06-27] MEDS ORDERED: POLYVINYL ALCOHOL OPHTH DROPS 15ML BOTTLE OD PRN (16:50)
[2017-06-27] MEDS ORDERED: ACETAMINOPHEN 1,000 MG/100 ML BOTTLE IV PRN (16:50)
[2017-06-27] MEDS ORDERED: IPRATROPIUM/ALBUTEROL 3 ML AMPUL.NEB NEB PRN (16:50)
[2017-06-27] MEDS ORDERED: 0.9 % SODIUM CHLORIDE 10 ML SYRINGE IV PRN (16:50)
[2017-06-27] MEDS ORDERED: TPN PER PHARMACY IV SCH (16:50)
[2017-06-27] MEDS ORDERED: NOREPINEPHRINE BITARTRATE 16 MG in 0.9 % SODIUM CHLORIDE 234 ML IV PRN (16:50)
[2017-06-27] MEDS ORDERED: CALCIUM GLUCONATE 5 MEQ, MAGNESIUM SULFATE 8.12 MEQ, SODIUM CHLORIDE 40 MEQ, POTASSIUM ... IV SCH ×2 (19:00)
[2017-06-27] MEDS: CALCIUM GLUCONATE 5 MEQ, MAGNESIUM SULFATE 8.12 MEQ, SODIUM CHLORIDE 40 MEQ, POTASSIUM ... IV SCH (19:16)
[2017-06-27] MEDS: FAT EMULSION 20% 250 ML in PREMIX 1 BAG IV SCH (19:17)
[2017-06-28] MEDS: INSULIN LISPRO 1 UNIT/0.01 ML UNIT SQ SCH ×4 (00:25→20:56)
[2017-06-28] MEDS: PIPERACILLIN SODIUM/TAZOBACTAM 3.375 GM in 0.9 % SODIUM CHLORIDE 50 ML IV SCH ×4 (00:26→17:55)
[2017-06-28] MEDS: IPRATROPIUM/ALBUTEROL 3 ML AMPUL.NEB NEB SCH ×6 (04:45→22:38)
[2017-06-28 05:19] LABS: Basophils # (Auto) 0 K/mcL (0.0-0.3); Basophils % (Auto) 0 % (0.0-2.0); Eosinophils # (Auto) 0.1 K/mcL (0.0-0.7); Eosinophils % (Auto) 0.8 % (0.0-7.0); Granulocytes % (Auto) 90.8 % (38.0-78.0); Lymphocytes # (Auto) 0.4 K/mcL (1.5-4.8); Lymphocytes % (Auto) 2.9 % (15.5-49.0); Mean Cell Volume 80.9 fL (80.0-100.0); Mean Corpuscular HGB Conc 32.9 g/dL (31.0-36.0); Mean Corpuscular Hemoglobin 26.6 pg (26.0-34.0); Monocytes # (Auto) 0.7 K/mcL (0.1-0.9); Monocytes % (Auto) 5.5 % (1.0-12.0); Platelet Count 386 K/mcL (140-440); RBC 3.47 M/mcL (4.00-5.20); Red Cell Distribution Width 17.3 % (11.5-14.5)
[2017-06-28] MEDS: 0.9 % SODIUM CHLORIDE 10 ML SYRINGE IV SCH ×3 (05:38→20:40)
[2017-06-28] MEDS: PANTOPRAZOLE 40 MG VIAL IV SCH ×2 (08:00→16:27)
[2017-06-28] MEDS ORDERED: FUROSEMIDE 20 MG/2 ML VIAL IV SCH (09:00)
[2017-06-28 09:19] LABS: ALT/SGPT 9 U/l (0-40); Albumin 2.6 gm/dL (3.2-5.2); Alkaline Phosphatase 52 U/L (39-117); Bilirubin,Direct < 0.2 mg/dL (0.0-0.3); Blood Urea Nitrogen 27 mg/dl (8-23); Gamma Glutamyl Transpeptidase 63 U/L (5-36); Magnesium 2.4 mg/dL (1.6-2.5); Uric Acid 1.9 mg/dL (2.5-8.0)
[2017-06-28] MEDS: HEPARIN 5,000 UNIT/ML VIAL SQ SCH ×2 (09:27→20:39)
[2017-06-28] MEDS: FUROSEMIDE 20 MG/2 ML VIAL IV SCH (09:28)
[2017-06-28] MEDS: FLUCONAZOLE 100 MG TABLET PO SCH (09:28)
[2017-06-28] MEDS: predniSONE 20 MG TABLET PO SCH (09:28)
[2017-06-28] MEDS: VANCOMYCIN 1,000 MG in 0.9 % SODIUM CHLORIDE 250 ML IV SCH (09:29)
[2017-06-28] MEDS: CHLORHEXIDINE GLUCONATE 1 ML ORAL.SOL SWABMOUTH SCH ×2 (09:41→20:40)
--- NOTE | 2017-06-28 10:32 | Internal Med Progress Note ---
Medical - PN: Subj Patient information: Note initiated : 06/28/17 at 10:29 am Service Date, if different from initiated Date: [] Patient: Caroline Bellamy a 77 y/o F admitted on 06/12/17 for N/V, UTI, Constipation/Colon Obstruction, UTI. Chief Complaint: [] Interval history: June 12 Ms. Adiel Cardoso is a 77 year old F who presents to the ED with ongoing complaints of abdominal pain. Patient awoke last Thursday with abdominal pain. She was also nauseated. She was seen in the emergency department due to ongoing symptoms on Thursday, 06/08. CT scan at that time showed some colonic thickening and wall edema without significant inflammatory changes. There was also diverticulosis. She had evidence of urinary tract infection and was started on Septra. Patient remained nauseated and was unable to take the Septra. She continued to have significant abdominal pain, up to 06/09. On the day following her ED visit , she was nauseated and was unable to keep anything down. She presented back to the emergency department, had Bactrim stopped and was changed over to ciprofloxacin. Neither the patient nor her family were aware that a new prescription of been generated and it was never picked up. On Thursday and she continued to have vomiting which was without blood. She continued to have significant abdominal pain up to "08/09". She presents back to the emergency department today because of ongoing abdominal pain, nausea and vomiting. With the onset of the pain a week ago, the pain was severe and was in the left lower quadrant, changing over to the right lower quadrant and becoming generalized as last week has progressed. She describes the quality of the pain is constant and aching with intermittent bouts of stabbing pain. Associated with nausea, vomiting without hematemesis. She has hydrocodone prescription for chronic back pain, that has helped her pain somewhat, though she has had some difficulty keeping medications down. She tried an oral Zofran, was able to keep one done yesterday, but not today. June 13 She is still complaining of significant abdominal pain, more so on the right side from the right upper and right lower quadrant. Tolerating clears, nausea has improved, no ecchymosis. She did have one small hard bowel movement, then to softer ones. She did receive bisacodyl rectally, also oral milk of magnesia and senna last evening. No fever, no chills. No significant dyspnea, has used 1 as needed nebulizer therapy. CT of the abdomen and pelvis was obtained due to ongoing pain. Spoke with radiology, films reviewed, she has dilated colon, ascending, transverse, descending with a transition point in the sigmoid where it decompresses. No pericolonic inflammatory changes, no mural thickening. Patient currently undergoing delayed images to see if there is passage of contrast. June 14 Still complaining of abdominal pain. Had some desaturation overnight, on oxygen. Received dose of furosemide earlier today. Still requiring regular Dilaudid today, though when I see her this morning the interval between when necessary doses has increased somewhat. Final results of CTAP yesterday without passage of contrast. I discussed the case with Dr. Eubanks last evening, he is seeing the patient today , plans to take to the operating room. Her white count was increased to 22,000 today. Ceftriaxone changed to Zosyn this morning. June 15 Patient currently in the intensive care unit following surgery yesterday. Had inflammatory mass causing sigmoid obstruction. Subsequently had rupture of right colon intraoperatively, necessitating colectomy and washout. 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 Wound is being packed open. Overnight patient received fluid resuscitation of 6 L NS, did achieve adequate CVP, still required norepinephrine. Today receiving packed red blood cells, still on norepinephrine, though that has been titrated down a bit. Remains sedated with propofol on ventilator. Plan to go back to the OR Thursday for washout and possible closure. June 16 Patient remained stable, ventilated and sedated. Remains on some Levophed for blood pressure support. Diuresed well with 40 mg of furosemide yesterday. Still with significant thigh and arm edema. Right pleural effusion on radiograph today, though infiltrates/atelectasis improves. Arterial line started to dampen and not function overnight, was removed. June 17 Patient now postop after planned second look exploratory laparotomy. No evidence of intra-abdominal abscess, final closure performed. Some increased airway pressures postoperatively, had been bagged on the way back to the ICU, which may explain some of her airway pressures and an increase in FiO2, seemed to be improving as the afternoon progresses. Nonpitting edema, urine output is adequate but not brisk, on 100 mils an hour fluid. Still on TPN. Still requiring some NE for BP support. June 18 Norepinephrine weaned off overnight. Remains significantly volume long. During wake up trial this morning, became tachypnea can airway pressures went up , did withdrawal from lower extremity stimuli, but did not open eyes to voice or respond upper extremity stimulus. Had to be re-sedated before this could happen due to her status. Chest x-ray showing some worsening congestion. Between TPN, drips and IV fluids containing almost 200 mL an hour. Will DC maintenance fluids, continuous TPN and drips, give furosemide today. We'll also add fentanyl infusion for baseline pain control in the postoperative state. Also on propofol for sedation. June 19: Patient seen examined, off pressors but still on [facility] ventilation. labs reviewed , worsening leucocytosis today at 16.3, CXR shows patient has bibasilar infiltrates. The patient was weaned off sedation this AM she opened eyes but did not follow commands, She became tachypenic and tachycardic, on wean trial. Pt TV was increased overnight by RT, changed back to 360 this AM repeat ABG to be done in 30 mins. Vancomycin was added yesterday in light of pulmonary infiltrates, Vent parameters AC mode, TV 360 (was 420 in AM), RR 16, Fio2 40, PEEP 5. Peak pressure 26-28, Plat 19-23, I/0 Pt was negative 1225 yesterday. sedation: propofol and fentanyl Diet TPN Riggs in place Right SC in place for central venous access June 20 Patient seen exmined, sedated on vent, Sedation was held this AM, and patient mental status improved, she was better than yesterday, did follow some commands. Placed on pressure support of 7, but became tachycardic and tachypenic after sometime. placed back on AC mode Her wbc is creeping up, we tried to change antibiotics from zosyn to carbapenum , but we are in short supply at this time. Xray done this AM shows significant worsening in her infiltrtes, chf vs ards Vent parameters AC mode TV 360, RR 12 (set), PEEP 5, Fio2 40, Plat 18-24, Peak 25-28 ABG 7.42/45/83 Lact 0.5 Patient responding well to diuresis, was neg 3L yesterday. June 21 Aly wheeler examined no acute overnight issues X ray stable today ABG stable, ph 7.45/45/79, Vent setting unchanged. Peak pressure 25, plat 22 WBC imprving on albumin and lasix bid for gen edema/ ards/ chf off propofol for today to see how she does with her mental status only on fenanyl, mental status much better, able to follow commands and nod to some questions. Plan of care reviewed with the patients daugther June 22 patien seen examined, good mental status off sedatives, following commands She did well on weaning parameters for extubation, vasyl index < 105, SBT on 7 SP was well tolerated with good tidal volues pt extubated this AM, however was short of breath on extubation, She was given duonebs and palced on bipap. The aptient repeat abg was good, x ray showed pulmonary congestion. IV lasix and bipap continued. She is obeying c ommands. for now Sputum cx is suggestive of pseudomonas. d/c vanco, IV cipro added. continue zosyn. wbc mildy uptrended today but pt was on steroids June 23: patient seen examined, no acute overnight issues patient this AM is off bipap and is able on 6L oxygen, still has some shortness of breath ABG showed metabolic alkalosis Continue IV lasixi for diuresis, pt was neg 2.5 L yesterday still has positive 2.5L since admission. Mental status much better able to communicate well On iv zosyn and cipro and flagyl wbc trended down today June 24 Patient seen examined no acute overnight issues patient was on bipap overnight, and is back on nasal canula, bipap used to give some support and help her relax patient is neg now since admission, dose of lasix cut down to 20mg bid, to ensure that she does not get fluid overloaded with her tpn and other fluids resume oral diet as tolerated CXR shows slight worsening of congestion overall we seem to be making good progress June 25 Patient seen examined no acute overnight events, patient was sob this AM and was placed on bipap, 10/5 , fio2 25, tolerating well increase dose of lasix from 20mg bid to 40mg bid Calorie count initiated still on TPN June 26 Patient seen examined, no acute overnight events, not needed bipap but is very weak and fatigued, minimal activity makes her short of breath The patient denies any complaints but seems to be some what frustrated that it s taking her long to recover. Diet is being advanced caloric intake was less than 25% of needs hence TNP will continue cxr improved continue to monitor xfer to tele status in AM tomorrow if resp status remains stable. june 27 Patient seen examined no acute overnight issues this AM was sob, and needed bipap for a short while repeat X rah shows some congestion vs pna resume IV vanco disucssed with surgery on need for flagyl and enteral feeds, plan to d/c fl; agyl but continue TPN for now low grade temp this AM, and slight worsening ofwbc repeat blood and urine cx ordered. June 28 patient seen examined sleeing comfortably in bed denies any complaints not needed bipap since yesterday AM still has poor oral intake if remains stable can be xferrerd to outside unit to a more calmer room. Pertinent ROS: Denies headache, dizziness Denies chest pain, palpitations Denies cough or shortness of breath Denies abdominal pain, nausea or vomiting. - Constitutional Vitals: Vital Signs Temp Pulse Resp BP Pulse Ox 99.7 F H 80 18 97/51 95 06/28/17 08:01 06/28/17 08:01 06/28/17 04:01 06/28/17 08:01 06/28/17 08:01 Period Temp Pulse Resp BP Sys/[place] Pulse Ox Last 24 Hr 98.8 F-100.7 F 80-100 16-24 84-120/51-70 92-98 Intake and Output 06/27/17 06/28/17 06/28/17 21:59 05:59 13:59 Intake Total 600 / 600 360 / 360 50 / 50 Output Total 775 / 775 725 / 725 Balance -175 / -175 -365 / -365 50 / 50 Weight 134 lb 5 oz Intake & Output: Intake & Output 06/27/17 06/28/17 06/28/17 21:59 05:59 13:59 Intake Total 600 / 600 360 / 360 50 / 50 Output Total 775 / 775 725 / 725 Balance -175 / -175 -365 / -365 50 / 50 Weight 134 lb 5 oz Intake: IV 600 / 600 300 / 300 50 / 50 Zosyn 3.375 gm In Sodium 50 / 50 50 / 50 50 / 50 Chloride 0.9% 50 ml @ 100 mls/ hr IV Q6H [facility] Rx#:[id number] Vancomycin 1,000 mg In Sodium 250 / 250 Chloride 0.9% 250 ml @ 250 mls/ hr IV Q24H [facility] Rx#:[id number] Oral 60 / 60 Output: Urine Catheter Amount 700 / 700 650 / 650 Stool 75 / 75 75 / 75 Exam: Constitutional; Afebrile, cooperative, alert, not in distress. Eyes- No icterus, , No periorbital swelling Ears- Ext ear normal, hearing normal to conversation. Neck- Midline trachea, supple Respiratory system: Air Entry equal on both sides, No crackles or wheezing, no rhonchi. CVS- Rate rhythm regular, S1,S2 heard, no gallop, no rub. Abdomen- Soft nontender abdomen, no organomegaly, no tenderness, no guarding or rigidity, 2 Ostomy bags present EVALUATOR- AOOx3, moving all extremities, no gross focal deficit noted. Medical - PN: Obj Da - Labs CBC & Chem 7: 06/28/17 04:00 06/28/17 08:08 Labs: Abnormal Lab Results 06/28/17 06/28/17 06/27/17 08:08 04:00 12:25 WBC 13.4 H RBC 3.47 L Hgb 9.3 L Hct 28.1 L RDW 17.3 H Plt Count Gran % 90.8 H Lymph % (Auto) 2.9 L Gran # 12.2 H Lymph # (Auto) 0.4 L Anion Gap 7.0 L BUN 27 H Creatinine 0.5 L Glucose 153 H Uric Acid 1.9 L Calcium 8.3 L Phosphorus GGT 63 H NT-Pro-B Natriuret Pep Total Protein 5.1 L Albumin 2.6 L Ur Leukocyte Esterase 25 A Urine Bacteria Few A Hyaline Casts 4 H 06/27/17 06/27/17 06/26/17 04:10 04:10 04:00 WBC 13.2 H RBC 3.54 L Hgb 9.4 L Hct 28.8 L RDW 18.1 H Plt Count 491 H Gran % 88.0 H Lymph % (Auto) 4.2 L Gran # 11.6 H Lymph # (Auto) 0.5 L Anion Gap BUN 25 H 32 H Creatinine 0.5 L 0.5 L Glucose 118 H 118 H Uric Acid 2.3 L 2.4 L Calcium 8.4 L 8.2 L Phosphorus 2.6 L GGT 69 H 72 H NT-Pro-B Natriuret Pep 1087.0 H Total Protein 5.4 L 4.9 L Albumin 2.9 L 2.6 L Ur Leukocyte Esterase Urine Bacteria Hyaline Casts Meds: Medications Acetaminophen (Tylenol) 650 mg PO Q6HP PRN PRN Reason: PAIN/FEVER > 101 Albuterol/Ipratropium (Duoneb) 3 ml NEB Q4HP PRN PRN Reason: Shortness Of Breath Or Wheezing Albuterol/Ipratropium (Duoneb) 3 ml NEB Q4HRT [facility] Last Admin: 06/28/17 04:45 Dose: Not Given Artificial Tears (Artificial Tears Ophth Drops) 1 gtt OD QIDP PRN PRN Reason: Dry Eye(s) Chlorhexidine Gluconate (Peridex) 15 ml SWABMOUTH BID [facility] Last Admin: 06/28/17 09:41 Dose: 15 ml Dextrose (Dextrose 50%) 25 ml IV UD PRN PRN Reason: Hypoglycemia Dextrose (Dextrose 50%) 0 ml IV UD PRN PRN Reason: Hypoglycemia Diagnostic Test (Pha) (Accu-Chek) 1 each FS Q6 [facility] Last Admin: 06/28/17 05:37 Dose: 1 each Fluconazole (Diflucan) 100 mg PO DAILY [facility] Last Admin: 06/28/17 09:28 Dose: 100 mg Furosemide (Lasix) 40 mg IV DAILY [facility] Last Admin: 06/28/17 09:28 Dose: 40 mg Heparin Sodium (Porcine) (Heparin) 5,000 unit SQ Q12 [facility] Last Admin: 06/28/17 09:27 Dose: 5,000 unit Hydromorphone HCl (Dilaudid) 0.5 mg IV Q1HP PRN PRN Reason: Pain Last Admin: 06/27/17 22:50 Dose: 0.5 mg Calcium Gluconate 5 meq/Magnesium Sulfate 8.12 meq/Sodium Chloride 40 meq/ Potassium Phosphate 60 meq/Multivitamins/Minerals 10 ml/Selenium 60 mcg/ Potassium Chloride 30 meq/ Amino Acids 1,062.889 mls @ 50 mls/hr IV Q21H [facility] Last Admin: 06/27/17 19:16 Dose: 50 mls/hr Fat Emulsion Intravenous 250 (ml/ Premix) 250 mls @ 25 mls/hr IV DAILY@1600 [facility] Norepinephrine Bitartrate 16 (mg/ Sodium Chloride) 250 mls @ 9.37 mls/hr IV Q24HP PRN; Protocol; 10 MCG/MIN PRN Reason: TITRATE TO KEEP MAP > 65 Acetaminophen (Ofirmev) 1,000 mg in 100 mls @ 200 mls/hr IV Q6HP PRN PRN Reason: PAIN/FEVER > 101 Piperacillin Sod/Tazobactam (Sod 3.375 gm/ Sodium Chloride) 50 mls @ 100 mls/ hr IV Q6H [facility] Last Infusion: 06/28/17 09:40 Dose: Infused Vancomycin HCl 1,000 mg/ (Sodium Chloride) 250 mls @ 250 mls/hr IV Q24H [facility] Last Admin: 06/28/17 09:29 Dose: 250 mls/hr Insulin Human Lispro (Humalog) 0 unit SQ Q6 [facility] PRN Reason: Protocol Last Admin: 06/28/17 05:38 Dose: Not Given Lorazepam (Ativan) 1 mg IV Q4-6HP PRN PRN Reason: ANXIETY/SEDATION Last Admin: 06/27/17 22:50 Dose: 1 mg Ondansetron HCl (Zofran) 4 mg IV Q6HP PRN PRN Reason: Nausea And Vomiting Pantoprazole Sodium (Protonix) 40 mg IV BIDAC [facility] Last Admin: 06/28/17 08:00 Dose: 40 mg Prednisone (Prednisone) 40 mg PO QAC [facility] Last Admin: 06/28/17 09:28 Dose: 40 mg Sodium Chloride (Saline Flush) 10 ml IV UD PRN PRN Reason: medication Sodium Chloride (Saline Flush) 10 ml IV Q8 [facility] Last Admin: 06/28/17 05:38 Dose: 10 ml Vancomycin HCl (Vancomycin Per Pharmacy) 1 order IV [facility] [place] Medical - PN: A/P - Time Spent With Patient Total time spent is greater than 50% in coordination of care (as documented) at patient's floor/unit and/or counseling patient: - Narrative A/P Narrative: 77-year-old female without GI illness (though in retrospect has had diverticulitis in past) presents with abdominal pain, nausea and vomiting. Also has urinary tract infection. Evolution of distal colonic obstruction, subsequently went to the operating room on 06/14, resection of sigmoid mass, a contained perforation of transverse colon and spontaneous rupture of right colon intraoperatively. Acute diverticulitis. . Postop day # 14 , status post exploratory laparotomy, hemicolectomy with ileostomy, Clark's procedure with mucous fistula. both draining well Now Post-op day #11 from re-look and delayed closure. Plan: management as per surgery, ok to feed orally as tolerated. HCAP PNA: Pseudomonas levine sensitive, given new fever and rising wbc add vanco back, pt stable for nwo, Vanco d2, Zosyn has been likely from the day of admit, but will continue for additional 1 week. to complete 14 days of zosyn after pseudomonas was noted. Acute respiratory failure : ARDS vs CHF Vs PNA Post extubation day 5 Still needs prn bipap patient is neg fluid balance from admission now will cut back lasix to once daily monitor prn bipap as needed asthma: on duonebs q4hrs , po prednisone , wean down gradually, no wheeze on exam Malnutrition on TPN, will continue same for now, oral feeds as tolerated, calorie count noted , very poor oral intake. not candiate for NG feeds as if aspiratees has poor pulmonary reserve. Hypokalemia / Hypomagnesemia. replace as needed Anemia: likely related to underlying infection, monitor for now, hb stable. CODE STATUS, discussed with the patient at admission, is DNR Prophylaxis: Protonix, SCD's hep sq Procedures - Arterial Line Size (Gauge): 20
--- NOTE | 2017-06-28 12:36 | General Surgery Progress Note ---
Subjective Patient reports: feels better, pain is less, flatus, bowel movement, shortness of breath Narrative: Note initiated : 06/28/17 at 12:34 pm Service Date, if different from initiated Date: [] Patient: Caroline Bellamy 77 y/o F admitted on 06/12/17 for N/V, UTI, Constipation/Colon Obstruction, UTI. Chief Complaint: [Patient is better though she is still significantly weakened. Her respiratory pattern and depth of breathing is better than on yesterday. She has not needed BiPAP for the past 24 hours. She is more conversational today. Her p.o. intake is still minimal and she is not taking in enough to sustain herself. She asked if she can have a small amount of whiskey and I have informed the nurses that she may have some with her meals if this will assist her with eating.] Objective Temp Pulse Resp BP Pulse Ox 99.7 F H 92 H 24 H 97/51 98 06/28/17 08:01 06/28/17 12:01 06/28/17 12:01 06/28/17 08:01 06/28/17 12:01 - Additional Data Intake & Output - Last 24 hours: Intake & Output 06/26/17 06/27/17 06/28/17 06/29/17 05:59 05:59 05:59 05:59 Intake Total 2811.6162 / 2811.6162 2130 / 2130 1010 / 1010 50 / 50 Output Total 4870 / 4870 5275 / 5275 2270 / 2270 Balance -2058.3838 / -2058.3838 -3145 / -3145 -1260 / -1260 50 / 50 Weight 146 lb 12.8 oz 143 lb 4.8 oz 134 lb 5 oz - General physical appearance no distress, moderate pain, chronically ill - Eyes PERRL - ENT no congestion - Neck no venous distension - Respiratory normal respiratory effort, other (Still with few scattered rhonchi) - Cardiovascular Cardiovascular exam: Present: normal rate and rhythm, RRR, +S1, +S2 - Abdomen soft, non tender, bowel sounds, distended (Nondistended with good active bowel sounds incisions and no murmurs look good) - Integumentary no rash, no growths, no abnormal pigmentation - Neurologic other (Improved motor strength overall but still very weak) - Musculoskeletal other (Cannot stand unassisted) - Psychiatric oriented to time, oriented to person, oriented to place, speech is normal, memory intact - Labs 06/28/17 04:00 06/28/17 08:08 Diabetes panel 06/28/17 Range/Units 08:08 Sodium 135 (133-145) mmol/L Potassium 5.0 (3.3-5.1) mmol/L Chloride 104 (96-108) mmol/L Carbon Dioxide 24 (22-30) mmol/L BUN 27 H (8-23) mg/dl Creatinine 0.5 L (0.6-1.1) mg/dl Glucose 153 H (70-105) mg/dL Calcium 8.3 L (8.6-10.4) mg/dl AST 10 (0-37) U/l ALT 9 (0-40) U/l Alkaline Phosphatase 52 (39-117) U/L Total Protein 5.1 L (5.9-8.4) gm/dL Albumin 2.6 L (3.2-5.2) gm/dL Triglycerides 82 (<150) mg/dl Calcium panel 06/28/17 Range/Units 08:08 Calcium 8.3 L (8.6-10.4) mg/dl Phosphorus 3.4 (2.7-4.5) mg/dL Albumin 2.6 L (3.2-5.2) gm/dL Pituitary panel 06/28/17 Range/Units 08:08 Sodium 135 (133-145) mmol/L Potassium 5.0 (3.3-5.1) mmol/L Chloride 104 (96-108) mmol/L Carbon Dioxide 24 (22-30) mmol/L BUN 27 H (8-23) mg/dl Creatinine 0.5 L (0.6-1.1) mg/dl Glucose 153 H (70-105) mg/dL Calcium 8.3 L (8.6-10.4) mg/dl Adrenal panel 06/28/17 Range/Units 08:08 Sodium 135 (133-145) mmol/L Potassium 5.0 (3.3-5.1) mmol/L Chloride 104 (96-108) mmol/L Carbon Dioxide 24 (22-30) mmol/L BUN 27 H (8-23) mg/dl Creatinine 0.5 L (0.6-1.1) mg/dl Glucose 153 H (70-105) mg/dL Calcium 8.3 L (8.6-10.4) mg/dl Total Bilirubin 0.4 (0.0-1.0) mg/dL AST 10 (0-37) U/l ALT 9 (0-40) U/l Alkaline Phosphatase 52 (39-117) U/L Total Protein 5.1 L (5.9-8.4) gm/dL Albumin 2.6 L (3.2-5.2) gm/dL Assessment and Plan (1) Colon obstruction Problem details: Mass in sigmoid, resected 06/14/2017-diverticulitis Status: Acute Assessment and plan: General status is better than on yesterday P.o. intake is still very poor Motivation for increased activity is poor Current Visit: Yes (2) Anemia Status: Acute Assessment and plan: she has stable hgb over the past 24 hr Current Visit: Yes (3) UTI due to Klebsiella species Status: Resolved Assessment and plan: Resolved Current Visit: No - Time Spent With Patient Total time spent is greater than 50% in coordination of care (as documented) at patient's floor/unit and/or counseling patient:
[2017-06-28] MEDS: HYDROmorphone 2 MG/ML SYRINGE IV PRN ×2 (13:50→19:14)
[2017-06-28] MEDS: CALCIUM GLUCONATE 5 MEQ, MAGNESIUM SULFATE 8.12 MEQ, SODIUM CHLORIDE 40 MEQ, POTASSIUM ... IV SCH (14:39)
[2017-06-28] MEDS: FAT EMULSION 20% 250 ML in PREMIX 1 BAG IV SCH (16:24)
[2017-06-28] MEDS: LORazepam 2 MG/ML VIAL IV PRN (19:13)
[2017-06-29] MEDS: PIPERACILLIN SODIUM/TAZOBACTAM 3.375 GM in 0.9 % SODIUM CHLORIDE 50 ML IV SCH ×4 (00:28→18:21)
[2017-06-29] MEDS: INSULIN LISPRO 1 UNIT/0.01 ML UNIT SQ SCH ×4 (00:28→18:21)
[2017-06-29] MEDS: IPRATROPIUM/ALBUTEROL 3 ML AMPUL.NEB NEB SCH ×6 (02:57→22:39)
[2017-06-29] MEDS: 0.9 % SODIUM CHLORIDE 10 ML SYRINGE IV SCH ×3 (05:39→21:00)
[2017-06-29 06:04] LABS: Basophils # (Auto) 0 K/mcL (0.0-0.3); Basophils % (Auto) 0 % (0.0-2.0); Eosinophils # (Auto) 0.1 K/mcL (0.0-0.7); Eosinophils % (Auto) 0.4 % (0.0-7.0); Granulocytes % (Auto) 89.7 % (38.0-78.0); Lymphocytes # (Auto) 0.5 K/mcL (1.5-4.8); Lymphocytes % (Auto) 3.9 % (15.5-49.0); Mean Cell Volume 81.4 fL (80.0-100.0); Mean Corpuscular HGB Conc 32.9 g/dL (31.0-36.0); Mean Corpuscular Hemoglobin 26.8 pg (26.0-34.0); Monocytes # (Auto) 0.7 K/mcL (0.1-0.9); Platelet Count 413 K/mcL (140-440); RBC 3.46 M/mcL (4.00-5.20)
[2017-06-29 06:33] LABS: ALT/SGPT 8 U/l (0-40); Albumin 2.7 gm/dL (3.2-5.2); Alkaline Phosphatase 57 U/L (39-117); Bilirubin,Direct < 0.2 mg/dL (0.0-0.3); Blood Urea Nitrogen 31 mg/dl (8-23); Gamma Glutamyl Transpeptidase 67 U/L (5-36); Magnesium 2.4 mg/dL (1.6-2.5)
[2017-06-29] MEDS: PANTOPRAZOLE 40 MG VIAL IV SCH ×2 (07:07→17:05)
[2017-06-29] MEDS: HYDROmorphone 2 MG/ML SYRINGE IV PRN ×4 (07:17→22:27)
[2017-06-29] MEDS: predniSONE 20 MG TABLET PO SCH (09:02)
[2017-06-29] MEDS: FLUCONAZOLE 100 MG TABLET PO SCH (09:03)
[2017-06-29] MEDS: HEPARIN 5,000 UNIT/ML VIAL SQ SCH ×2 (09:03→20:59)
[2017-06-29] MEDS: FUROSEMIDE 20 MG/2 ML VIAL IV SCH (09:03)
[2017-06-29] MEDS: CHLORHEXIDINE GLUCONATE 1 ML ORAL.SOL SWABMOUTH SCH ×3 (09:04→20:58)
[2017-06-29] MEDS: VANCOMYCIN 1,000 MG in 0.9 % SODIUM CHLORIDE 250 ML IV SCH (10:10)
[2017-06-29] MEDS ORDERED: MAGNESIUM SULFATE IV SCH (13:00)
[2017-06-29] MEDS ORDERED: [UNRECOGNIZED DRUG - OTHER] IV SCH (13:00)
[2017-06-29] MEDS ORDERED: SODIUM CHLORIDE IV SCH (13:00)
[2017-06-29] MEDS ORDERED: CALCIUM GLUCONATE IV SCH (13:00)
--- NOTE | 2017-06-29 16:13 | Internal Med Progress Note ---
Medical - PN: Subj Patient information: Note initiated : 06/29/17 at 4:10 pm Service Date, if different from initiated Date: [] Patient: Caroline Bellamy a 77 y/o F admitted on 06/12/17 for N/V, UTI, Constipation/Colon Obstruction, UTI. Chief Complaint: [] Interval history: June 12 Ms. Adiel Cardoso is a 77 year old F who presents to the ED with ongoing complaints of abdominal pain. Patient awoke last Thursday with abdominal pain. She was also nauseated. She was seen in the emergency department due to ongoing symptoms on Thursday, 06/08. CT scan at that time showed some colonic thickening and wall edema without significant inflammatory changes. There was also diverticulosis. She had evidence of urinary tract infection and was started on Septra. Patient remained nauseated and was unable to take the Septra. She continued to have significant abdominal pain, up to 06/09. On the day following her ED visit , she was nauseated and was unable to keep anything down. She presented back to the emergency department, had Bactrim stopped and was changed over to ciprofloxacin. Neither the patient nor her family were aware that a new prescription of been generated and it was never picked up. On Thursday and she continued to have vomiting which was without blood. She continued to have significant abdominal pain up to "08/09". She presents back to the emergency department today because of ongoing abdominal pain, nausea and vomiting. With the onset of the pain a week ago, the pain was severe and was in the left lower quadrant, changing over to the right lower quadrant and becoming generalized as last week has progressed. She describes the quality of the pain is constant and aching with intermittent bouts of stabbing pain. Associated with nausea, vomiting without hematemesis. She has hydrocodone prescription for chronic back pain, that has helped her pain somewhat, though she has had some difficulty keeping medications down. She tried an oral Zofran, was able to keep one done yesterday, but not today. June 13 She is still complaining of significant abdominal pain, more so on the right side from the right upper and right lower quadrant. Tolerating clears, nausea has improved, no ecchymosis. She did have one small hard bowel movement, then to softer ones. She did receive bisacodyl rectally, also oral milk of magnesia and senna last evening. No fever, no chills. No significant dyspnea, has used 1 as needed nebulizer therapy. CT of the abdomen and pelvis was obtained due to ongoing pain. Spoke with radiology, films reviewed, she has dilated colon, ascending, transverse, descending with a transition point in the sigmoid where it decompresses. No pericolonic inflammatory changes, no mural thickening. Patient currently undergoing delayed images to see if there is passage of contrast. June 14 Still complaining of abdominal pain. Had some desaturation overnight, on oxygen. Received dose of furosemide earlier today. Still requiring regular Dilaudid today, though when I see her this morning the interval between when necessary doses has increased somewhat. Final results of CTAP yesterday without passage of contrast. I discussed the case with Dr. Eubanks last evening, he is seeing the patient today , plans to take to the operating room. Her white count was increased to 22,000 today. Ceftriaxone changed to Zosyn this morning. June 15 Patient currently in the intensive care unit following surgery yesterday. Had inflammatory mass causing sigmoid obstruction. Subsequently had rupture of right colon intraoperatively, necessitating colectomy and washout. 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 Wound is being packed open. Overnight patient received fluid resuscitation of 6 L NS, did achieve adequate CVP, still required norepinephrine. Today receiving packed red blood cells, still on norepinephrine, though that has been titrated down a bit. Remains sedated with propofol on ventilator. Plan to go back to the OR Thursday for washout and possible closure. June 16 Patient remained stable, ventilated and sedated. Remains on some Levophed for blood pressure support. Diuresed well with 40 mg of furosemide yesterday. Still with significant thigh and arm edema. Right pleural effusion on radiograph today, though infiltrates/atelectasis improves. Arterial line started to dampen and not function overnight, was removed. June 17 Patient now postop after planned second look exploratory laparotomy. No evidence of intra-abdominal abscess, final closure performed. Some increased airway pressures postoperatively, had been bagged on the way back to the ICU, which may explain some of her airway pressures and an increase in FiO2, seemed to be improving as the afternoon progresses. Nonpitting edema, urine output is adequate but not brisk, on 100 mils an hour fluid. Still on TPN. Still requiring some NE for BP support. June 18 Norepinephrine weaned off overnight. Remains significantly volume long. During wake up trial this morning, became tachypnea can airway pressures went up , did withdrawal from lower extremity stimuli, but did not open eyes to voice or respond upper extremity stimulus. Had to be re-sedated before this could happen due to her status. Chest x-ray showing some worsening congestion. Between TPN, drips and IV fluids containing almost 200 mL an hour. Will DC maintenance fluids, continuous TPN and drips, give furosemide today. We'll also add fentanyl infusion for baseline pain control in the postoperative state. Also on propofol for sedation. June 19: Patient seen examined, off pressors [facility] labs reviewed , worsening leucocytosis today at 16.3, CXR shows patient has bibasilar infiltrates. The patient was weaned off sedation this AM she opened eyes but did not follow commands, She became tachypenic and tachycardic, on wean trial. Pt TV was increased overnight by RT, changed back to 360 this AM repeat ABG to be done in 30 mins. Vancomycin was added yesterday in light of pulmonary infiltrates, Vent parameters AC mode, TV 360 (was 420 in AM), RR 16, Fio2 40, PEEP 5. Peak pressure 26-28, Plat 19-23, I/0 Pt was negative 1225 yesterday. sedation: propofol and fentanyl Diet TPN Riggs in place Right SC in place for central venous access June 20 Patient seen exmined, sedated on vent, Sedation was held this AM, and patient mental status improved, she was better than yesterday, did follow some commands. Placed on pressure support of 7, but became tachycardic and tachypenic after sometime. placed back on AC mode Her wbc is creeping up, we tried to change antibiotics from zosyn to carbapenum , but we are in short supply at this time. Xray done this AM shows significant worsening in her infiltrtes, chf vs ards Vent parameters AC mode TV 360, RR 12 (set), PEEP 5, Fio2 40, Plat 18-24, Peak 25-28 ABG 7.42/45/83 Lact 0.5 Patient responding well to diuresis, was neg 3L yesterday. June 21 Aly wheeler examined no acute overnight issues X ray stable today ABG stable, ph 7.45/45/79, Vent setting unchanged. Peak pressure 25, plat 22 WBC imprving on albumin and lasix bid for gen edema/ ards/ chf off propofol for today to see how she does with her mental status only on fenanyl, mental status much better, able to follow commands and nod to some questions. Plan of care reviewed with the patients daugther June 22 patien seen examined, good mental status off sedatives, following commands She did well on weaning parameters for extubation, vasyl index < 105, SBT on 7 SP was well tolerated with good tidal volues pt extubated this AM, however was short of breath on extubation, She was given duonebs and palced on bipap. The aptient repeat abg was good, x ray showed pulmonary congestion. IV lasix and bipap continued. She is obeying c ommands. for now Sputum cx is suggestive of pseudomonas. d/c vanco, IV cipro added. continue zosyn. wbc mildy uptrended today but pt was on steroids June 23: patient seen examined, no acute overnight issues patient this AM is off bipap and is able on 6L oxygen, still has some shortness of breath ABG showed metabolic alkalosis Continue IV lasixi for diuresis, pt was neg 2.5 L yesterday still has positive 2.5L since admission. Mental status much better able to communicate well On iv zosyn and cipro and flagyl wbc trended down today June 24 Patient seen examined no acute overnight issues patient was on bipap overnight, and is back on nasal canula, bipap used to give some support and help her relax patient is neg now since admission, dose of lasix cut down to 20mg bid, to ensure that she does not get fluid overloaded with her tpn and other fluids resume oral diet as tolerated CXR shows slight worsening of congestion overall we seem to be making good progress June 25 Patient seen examined no acute overnight events, patient was sob this AM and was placed on bipap, 10/5 , fio2 25, tolerating well increase dose of lasix from 20mg bid to 40mg bid Calorie count initiated still on TPN June 26 Patient seen examined, no acute overnight events, not needed bipap but is very weak and fatigued, minimal activity makes her short of breath The patient denies any complaints but seems to be some what frustrated that it s taking her long to recover. Diet is being advanced caloric intake was less than 25% of needs hence TNP will continue cxr improved continue to monitor xfer to tele status in AM tomorrow if resp status remains stable. june 27 Patient seen examined no acute overnight issues this AM was sob, and needed bipap for a short while repeat X rah shows some congestion vs pna resume IV vanco disucssed with surgery on need for flagyl and enteral feeds, plan to d/c fl; agyl but continue TPN for now low grade temp this AM, and slight worsening ofwbc repeat blood and urine cx ordered. June 28 patient seen examined sleeing comfortably in bed denies any complaints not needed bipap since yesterday AM still has poor oral intake if remains stable can be xferrerd to outside unit to a more calmer room. June 29 Pt seen examined no acute overnight events tolerating po somewhat, not adequate but better than yesterday she continues to improve clinically Pertinent ROS: Denies headache, dizziness Denies chest pain, palpitations Denies cough or shortness of breath Denies some soreness present but no abdominal pain, nausea or vomiting. - Constitutional Vitals: Vital Signs Temp Pulse Resp BP Pulse Ox 98.3 F 80 16 111/67 94 06/29/17 12:00 06/29/17 15:09 06/29/17 15:09 06/29/17 12:00 06/29/17 08:00 Period Temp Pulse Resp BP Sys/[place] Pulse Ox Last 24 Hr 98.0 F-98.8 F 80-88 16-24 96-120/56-73 94-96 Intake and Output 06/29/17 06/29/17 06/29/17 05:59 13:59 21:59 Intake Total 50 / 50 1411 / 1411 330 / 330 Output Total 550 / 550 100 / 100 1750 / 1750 Balance -500 / -500 1311 / 1311 -1420 / -1420 Weight 135 lb 4 oz Patient Weight 06/30/17 05:59 Weight 135 lb 4 oz Intake & Output: Intake & Output 06/29/17 06/29/17 06/29/17 05:59 13:59 21:59 Intake Total 50 / 50 1411 / 1411 330 / 330 Output Total 550 / 550 100 / 100 1750 / 1750 Balance -500 / -500 1311 / 1311 -1420 / -1420 Weight 135 lb 4 oz Intake: IV 50 / 50 1351 / 1351 50 / 50 Calcium Gluconate 5 Meq 801 / 801 Magnesium Sulfate 8.12 Meq Sodium Chloride 40 Meq Potassium Phosphate 60 Meq Infuvite Adult 10 ml Selenium 60 Mcg Potassium Chloride 30 Meq In Clinimix 5%-20% Solution 1,000 ml @ 50 mls/hr IV Q21H [facility] Rx#:[id number] Intralipid 20% 250 ml In Premix 250 / 250 1 Bag @ 25 mls/hr IV DAILY@ 1600 [facility] Rx#:[id number] Zosyn 3.375 gm In Sodium 50 / 50 50 / 50 50 / 50 Chloride 0.9% 50 ml @ 100 mls/ hr IV Q6H [facility] Rx#:[id number] Vancomycin 1,000 mg In Sodium 250 / 250 Chloride 0.9% 250 ml @ 250 mls/ hr IV Q24H [facility] Rx#:[id number] Oral 60 / 60 280 / 280 Output: Urine Catheter Amount 550 / 550 1650 / 1650 Stool 100 / 100 100 / 100 Other: Meal 10 Lunch Percent of Meal Consumed 75% Feeding Ability Assist with Tray Set Up # Bowel Movements 0 Exam: Constitutional; Afebrile, cooperative, alert, not in distress. Eyes- No icterus, , No periorbital swelling Ears- Ext ear normal, hearing normal to conversation. Neck- Midline trachea, supple Respiratory system: Air Entry equal on both sides, No crackles or wheezing, no rhonchi. CVS- Rate rhythm regular, S1,S2 heard, no gallop, no rub. Abdomen- Soft nontender abdomen, no organomegaly, no tenderness, no guarding or rigidity, [employer]IV[employer]- AOOx3, moving all extremities, no gross focal deficit noted. Medical - PN: Obj Da - Labs CBC & Chem 7: 06/29/17 04:03 06/29/17 04:03 Labs: Abnormal Lab Results 06/29/17 06/29/17 06/28/17 04:03 04:03 08:08 WBC 12.4 H RBC 3.46 L Hgb 9.3 L Hct 28.2 L RDW 18.0 H Plt Count Gran % 89.7 H Lymph % (Auto) 3.9 L Gran # 11.1 H Lymph # (Auto) 0.5 L Anion Gap 7.0 L BUN 31 H 27 H Creatinine 0.4 L 0.5 L Glucose 149 H 153 H Uric Acid 2.0 L 1.9 L Calcium 8.4 L 8.3 L Phosphorus GGT 67 H 63 H NT-Pro-B Natriuret Pep Total Protein 5.3 L 5.1 L Albumin 2.7 L 2.6 L Ur Leukocyte Esterase Urine Bacteria Hyaline Casts 06/28/17 06/27/17 06/27/17 04:00 12:25 04:10 WBC 13.4 H RBC 3.47 L Hgb 9.3 L Hct 28.1 L RDW 17.3 H Plt Count Gran % 90.8 H Lymph % (Auto) 2.9 L Gran # 12.2 H Lymph # (Auto) 0.4 L Anion Gap BUN 25 H Creatinine 0.5 L Glucose 118 H Uric Acid 2.3 L Calcium 8.4 L Phosphorus 2.6 L GGT 69 H NT-Pro-B Natriuret Pep 1087.0 H Total Protein 5.4 L Albumin 2.9 L Ur Leukocyte Esterase 25 A Urine Bacteria Few A Hyaline Casts 4 H 06/27/17 04:10 WBC 13.2 H RBC 3.54 L Hgb 9.4 L Hct 28.8 L RDW 18.1 H Plt Count 491 H Gran % 88.0 H Lymph % (Auto) 4.2 L Gran # 11.6 H Lymph # (Auto) 0.5 L Anion Gap BUN Creatinine Glucose Uric Acid Calcium Phosphorus GGT NT-Pro-B Natriuret Pep Total Protein Albumin Ur Leukocyte Esterase Urine Bacteria Hyaline Casts Meds: Medications Acetaminophen (Tylenol) 650 mg PO Q6HP PRN PRN Reason: PAIN/FEVER > 101 Albuterol/Ipratropium (Duoneb) 3 ml NEB Q4HP PRN PRN Reason: Shortness Of Breath Or Wheezing Albuterol/Ipratropium (Duoneb) 3 ml NEB Q4HRT [facility] Last Admin: 06/29/17 14:59 Dose: 3 ml Artificial Tears (Artificial Tears Ophth Drops) 1 gtt OD QIDP PRN PRN Reason: Dry Eye(s) Chlorhexidine Gluconate (Peridex) 15 ml SWABMOUTH BID [facility] Last Admin: 06/29/17 09:05 Dose: 15 ml Dextrose (Dextrose 50%) 25 ml IV UD PRN PRN Reason: Hypoglycemia Dextrose (Dextrose 50%) 0 ml IV UD PRN PRN Reason: Hypoglycemia Diagnostic Test (Pha) (Accu-Chek) 1 each FS Q6 [facility] Last Admin: 06/29/17 12:32 Dose: 1 each Fluconazole (Diflucan) 100 mg PO DAILY [facility] Last Admin: 06/29/17 09:03 Dose: 100 mg Furosemide (Lasix) 40 mg IV DAILY [facility] Last Admin: 06/29/17 09:03 Dose: 40 mg Heparin Sodium (Porcine) (Heparin) 5,000 unit SQ Q12 [facility] Last Admin: 06/29/17 09:03 Dose: 5,000 unit Hydromorphone HCl (Dilaudid) 0.5 mg IV Q1HP PRN PRN Reason: Pain Last Admin: 06/29/17 13:30 Dose: 0.5 mg Fat Emulsion Intravenous 250 (ml/ Premix) 250 mls @ 25 mls/hr IV DAILY@1600 [facility] Last Infusion: 06/29/17 06:40 Dose: Infused Norepinephrine Bitartrate 16 (mg/ Sodium Chloride) 250 mls @ 9.37 mls/hr IV Q24HP PRN; Protocol; 10 MCG/MIN PRN Reason: TITRATE TO KEEP MAP > 65 Acetaminophen (Ofirmev) 1,000 mg in 100 mls @ 200 mls/hr IV Q6HP PRN PRN Reason: PAIN/FEVER > 101 Piperacillin Sod/Tazobactam (Sod 3.375 gm/ Sodium Chloride) 50 mls @ 100 mls/ hr IV Q6H [facility] Last Infusion: 06/29/17 14:10 Dose: Infused Vancomycin HCl 1,000 mg/ (Sodium Chloride) 250 mls @ 250 mls/hr IV Q24H [facility] Last Admin: 06/29/17 10:10 Dose: 250 mls/hr Calcium Gluconate 5 meq/Magnesium Sulfate 8.12 meq/Sodium Chloride 50 meq/ Potassium Phosphate 40 meq/Multivitamins/Minerals 10 ml/Selenium 60 mcg/ Potassium Chloride 30 meq/ Amino Acids 1,060.8435 mls @ 50 mls/hr IV Q21H [facility] Last Admin: 06/29/17 13:30 Dose: 50 mls/hr Insulin Human Lispro (Humalog) 0 unit SQ Q6 [facility] PRN Reason: Protocol Last Admin: 06/29/17 15:35 Dose: 2 unit Lorazepam (Ativan) 1 mg IV Q4-6HP PRN PRN Reason: ANXIETY/SEDATION Last Admin: 06/28/17 19:13 Dose: 1 mg Ondansetron HCl (Zofran) 4 mg IV Q6HP PRN PRN Reason: Nausea And Vomiting Pantoprazole Sodium (Protonix) 40 mg IV BIDAC [facility] Last Admin: 06/29/17 07:07 Dose: 40 mg Prednisone (Prednisone) 40 mg PO QAMCC [facility] Last Admin: 06/29/17 09:02 Dose: 40 mg Sodium Chloride (Saline Flush) 10 ml IV UD PRN PRN Reason: medication Sodium Chloride (Saline Flush) 10 ml IV Q8 [facility] Last Admin: 06/29/17 14:07 Dose: 10 ml Vancomycin HCl (Vancomycin Per Pharmacy) 1 order IV UD [facility] Medical - PN: A/P - Time Spent With Patient Total time spent is greater than 50% in coordination of care (as documented) at patient's floor/unit and/or counseling patient: - Narrative A/P Narrative: 77-year-old female without GI illness (though in retrospect has had diverticulitis in past) presents with abdominal pain, nausea and vomiting. Also has urinary tract infection. Evolution of distal colonic obstruction, subsequently went to the operating room on 06/14, resection of sigmoid mass, a contained perforation of transverse colon and spontaneous rupture of right colon intraoperatively. Acute diverticulitis. . Postop day # 15 , status post exploratory laparotomy, hemicolectomy with ileostomy, Clark's procedure with mucous fistula. both draining well Now Post-op day #13 from re-look and delayed closure. Plan: management as per surgery, ok to feed orally as tolerated. HCAP PNA: Pseudomonas levine sensitive, given new fever and rising wbc add vanco back, pt stable for nwo, Vanco d2, Zosyn has been likely from the day of admit, but will continue for additional 1 week. to complete 14 days of zosyn after pseudomonas was noted. Acute respiratory failure : ARDS vs CHF Vs PNA Post extubation day 6 Still needs prn bipap patient is neg fluid balance from admission now will cut back lasix to once daily monitor prn bipap as needed asthma: on duonebs q4hrs , po prednisone , wean down gradually, no wheeze on exam Malnutrition on TPN, will continue same for now, oral feeds as tolerated, calorie count noted , very poor oral intake. not candiate for NG feeds as if aspiratees has poor pulmonary reserve. Hypokalemia / Hypomagnesemia. replace as needed Anemia: likely related to underlying infection, monitor for now, hb stable. CODE STATUS, discussed with the patient at admission, is DNR Prophylaxis: Protonix, SCD's hep sq Procedures - Arterial Line Size (Gauge): 20
[2017-06-29] MEDS: FAT EMULSION 20% 250 ML in PREMIX 1 BAG IV SCH (16:21)
--- NOTE | 2017-06-29 16:44 | General Surgery Progress Note ---
Subjective Patient reports: feels better, pain is less, tolerating liquids well, flatus, bowel movement, shortness of breath, afebrile Narrative: Note initiated : 06/29/17 at 4:42 pm Service Date, if different from initiated Date: [] Patient: Caroline Bellamy 77 y/o F admitted on 06/12/17 for N/V, UTI, Constipation/Colon Obstruction, UTI. Chief Complaint: [patient is generally better. She appears to be much stronger. She is mentally alert and aware though she has some confusion about events of the past few days. oral intake in improved. Her respiratory status is also improved.] Objective Temp Pulse Resp BP Pulse Ox 99.3 F H 80 14 88/55 94 06/29/17 16:01 06/29/17 15:09 06/29/17 16:01 06/29/17 16:01 06/29/17 16:01 - Additional Data Intake & Output - Last 24 hours: Intake & Output 06/27/17 06/28/17 06/29/17 06/30/17 05:59 05:59 05:59 05:59 Intake Total 2130 / 2130 1010 / 1010 1279 / 1279 1741 / 1741 Output Total 5275 / 5275 2270 / 2270 2500 / 2500 1850 / 1850 Balance -3145 / -3145 -1260 / -1260 -1221 / -1221 -109 / -109 Weight 143 lb 4.8 oz 134 lb 5 oz 135 lb 4 oz 135 lb 4 oz - General physical appearance cachectic, chronically ill - Eyes PERRL - ENT no congestion - Neck no venous distension - Respiratory normal respiratory effort, clear to auscultation - Cardiovascular Cardiovascular exam: Present: irregular rhythm, +S1, +S2, tachycardia - Abdomen soft, non tender, bowel sounds, surgical scars, distended (minimal distention; good active bowel sounds; incision and stomas appeared to be good) - Integumentary no rash, no growths, no abnormal pigmentation - Neurologic normal sensation - Musculoskeletal other ( posture or gait not evaluated) - Psychiatric oriented to time, oriented to person, oriented to place, speech is normal - Labs 06/29/17 04:03 06/29/17 04:03 Diabetes panel 06/29/17 Range/Units 04:03 Sodium 136 (133-145) mmol/L Potassium 4.7 (3.3-5.1) mmol/L Chloride 103 (96-108) mmol/L Carbon Dioxide 24 (22-30) mmol/L BUN 31 H (8-23) mg/dl Creatinine 0.4 L (0.6-1.1) mg/dl Glucose 149 H (70-105) mg/dL Calcium 8.4 L (8.6-10.4) mg/dl AST 10 (0-37) U/l ALT 8 (0-40) U/l Alkaline Phosphatase 57 (39-117) U/L Total Protein 5.3 L (5.9-8.4) gm/dL Albumin 2.7 L (3.2-5.2) gm/dL Triglycerides 100 (<150) mg/dl Calcium panel 06/29/17 Range/Units 04:03 Calcium 8.4 L (8.6-10.4) mg/dl Phosphorus 3.3 (2.7-4.5) mg/dL Albumin 2.7 L (3.2-5.2) gm/dL Pituitary panel 06/29/17 Range/Units 04:03 Sodium 136 (133-145) mmol/L Potassium 4.7 (3.3-5.1) mmol/L Chloride 103 (96-108) mmol/L Carbon Dioxide 24 (22-30) mmol/L BUN 31 H (8-23) mg/dl Creatinine 0.4 L (0.6-1.1) mg/dl Glucose 149 H (70-105) mg/dL Calcium 8.4 L (8.6-10.4) mg/dl Adrenal panel 06/29/17 Range/Units 04:03 Sodium 136 (133-145) mmol/L Potassium 4.7 (3.3-5.1) mmol/L Chloride 103 (96-108) mmol/L Carbon Dioxide 24 (22-30) mmol/L BUN 31 H (8-23) mg/dl Creatinine 0.4 L (0.6-1.1) mg/dl Glucose 149 H (70-105) mg/dL Calcium 8.4 L (8.6-10.4) mg/dl Total Bilirubin 0.3 (0.0-1.0) mg/dL AST 10 (0-37) U/l ALT 8 (0-40) U/l Alkaline Phosphatase 57 (39-117) U/L Total Protein 5.3 L (5.9-8.4) gm/dL Albumin 2.7 L (3.2-5.2) gm/dL Assessment and Plan (1) Colon obstruction Problem details: Mass in sigmoid, resected 06/14/2017-diverticulitis Status: Acute Assessment and plan: General status is better than on yesterday P.o. intake is still very poor Motivation for increased activity is poor Current Visit: Yes (2) Anemia Status: Acute Assessment and plan: she has stable hgb over the past 24 hr Current Visit: Yes - Time Spent With Patient Total time spent is greater than 50% in coordination of care (as documented) at patient's floor/unit and/or counseling patient:
[2017-06-29] MEDS: LORazepam 2 MG/ML VIAL IV PRN (20:59)
[2017-06-30] MEDS: PIPERACILLIN SODIUM/TAZOBACTAM 3.375 GM in 0.9 % SODIUM CHLORIDE 50 ML IV SCH ×4 (00:21→18:00)
[2017-06-30] MEDS: 0.9 % SODIUM CHLORIDE 10 ML SYRINGE IV SCH ×5 (00:22→21:11)
[2017-06-30] MEDS: INSULIN LISPRO 1 UNIT/0.01 ML UNIT SQ SCH ×4 (00:33→18:33)
[2017-06-30] MEDS: IPRATROPIUM/ALBUTEROL 3 ML AMPUL.NEB NEB SCH ×2 (02:55→07:09)
[2017-06-30 05:45] LABS: Basophils # (Auto) 0 K/mcL (0.0-0.3); Basophils % (Auto) 0 % (0.0-2.0); Eosinophils # (Auto) 0.1 K/mcL (0.0-0.7); Eosinophils % (Auto) 0.8 % (0.0-7.0); Granulocytes % (Auto) 86.5 % (38.0-78.0); Lymphocytes # (Auto) 0.6 K/mcL (1.5-4.8); Lymphocytes % (Auto) 5.2 % (15.5-49.0); Mean Cell Volume 80.8 fL (80.0-100.0); Mean Corpuscular HGB Conc 33.4 g/dL (31.0-36.0); Monocytes # (Auto) 0.8 K/mcL (0.1-0.9); Monocytes % (Auto) 7.5 % (1.0-12.0); Platelet Count 401 K/mcL (140-440); RBC 3.52 M/mcL (4.00-5.20); Red Cell Distribution Width 18.4 % (11.5-14.5)
[2017-06-30 06:28] LABS: ALT/SGPT 9 U/l (0-40); Albumin/Globulin Ratio 1.2 (1.0-2.3); Alkaline Phosphatase 59 U/L (39-117); Bilirubin,Direct < 0.2 mg/dL (0.0-0.3); Blood Urea Nitrogen 28 mg/dl (8-23); Gamma Glutamyl Transpeptidase 71 U/L (5-36); Magnesium 2.3 mg/dL (1.6-2.5); Uric Acid 1.9 mg/dL (2.5-8.0)
[2017-06-30] MEDS: VANCOMYCIN 1,000 MG in 0.9 % SODIUM CHLORIDE 250 ML IV SCH (09:00)
[2017-06-30] MEDS: PANTOPRAZOLE 40 MG VIAL IV SCH ×2 (09:49→18:00)
[2017-06-30] MEDS ORDERED: MAGNESIUM SULFATE IV SCH (10:00)
[2017-06-30] MEDS ORDERED: [UNRECOGNIZED DRUG - OTHER] IV SCH (10:00)
[2017-06-30] MEDS ORDERED: SODIUM CHLORIDE IV SCH (10:00)
[2017-06-30] MEDS ORDERED: CALCIUM GLUCONATE IV SCH (10:00)
[2017-06-30] MEDS ORDERED: ALBUTEROL SULFATE 2.5 MG/3 ML NEBULIZER NEB PRN ×2 (10:20→13:57)
[2017-06-30] MEDS ORDERED: LIDOCAINE VISCOUS 2% 1 ML SOLUTION PO PRN ×2 (11:54→13:57)
[2017-06-30] MEDS: CHLORHEXIDINE GLUCONATE 1 ML ORAL.SOL SWABMOUTH SCH (12:01)
--- NOTE | 2017-06-30 12:07 | Internal Med Progress Note ---
Medical - PN: Subj Patient information: Note initiated : 06/30/17 at 12:07 pm Service Date, if different from initiated Date: [] Patient: Caroline Bellamy a 77 y/o F admitted on 06/12/17 for N/V, UTI, Constipation/Colon Obstruction, UTI. Chief Complaint: [] Interval history: June 12 Ms. Adiel Cardoso is a 77 year old F who presents to the ED with ongoing complaints of abdominal pain. Patient awoke last Thursday with abdominal pain. She was also nauseated. She was seen in the emergency department due to ongoing symptoms on Thursday, 06/08. CT scan at that time showed some colonic thickening and wall edema without significant inflammatory changes. There was also diverticulosis. She had evidence of urinary tract infection and was started on Septra. Patient remained nauseated and was unable to take the Septra. She continued to have significant abdominal pain, up to 06/09. On the day following her ED visit , she was nauseated and was unable to keep anything down. She presented back to the emergency department, had Bactrim stopped and was changed over to ciprofloxacin. Neither the patient nor her family were aware that a new prescription of been generated and it was never picked up. On Thursday and she continued to have vomiting which was without blood. She continued to have significant abdominal pain up to "08/09". She presents back to the emergency department today because of ongoing abdominal pain, nausea and vomiting. With the onset of the pain a week ago, the pain was severe and was in the left lower quadrant, changing over to the right lower quadrant and becoming generalized as last week has progressed. She describes the quality of the pain is constant and aching with intermittent bouts of stabbing pain. Associated with nausea, vomiting without hematemesis. She has hydrocodone prescription for chronic back pain, that has helped her pain somewhat, though she has had some difficulty keeping medications down. She tried an oral Zofran, was able to keep one done yesterday, but not today. June 13 She is still complaining of significant abdominal pain, more so on the right side from the right upper and right lower quadrant. Tolerating clears, nausea has improved, no ecchymosis. She did have one small hard bowel movement, then to softer ones. She did receive bisacodyl rectally, also oral milk of magnesia and senna last evening. No fever, no chills. No significant dyspnea, has used 1 as needed nebulizer therapy. CT of the abdomen and pelvis was obtained due to ongoing pain. Spoke with radiology, films reviewed, she has dilated colon, ascending, transverse, descending with a transition point in the sigmoid where it decompresses. No pericolonic inflammatory changes, no mural thickening. Patient currently undergoing delayed images to see if there is passage of contrast. June 14 Still complaining of abdominal pain. Had some desaturation overnight, on oxygen. Received dose of furosemide earlier today. Still requiring regular Dilaudid today, though when I see her this morning the interval between when necessary doses has increased somewhat. Final results of CTAP yesterday without passage of contrast. I discussed the case with Dr. Eubanks last evening, he is seeing the patient today , plans to take to the operating room. Her white count was increased to 22,000 today. Ceftriaxone changed to Zosyn this morning. June 15 Patient currently in the intensive care unit following surgery yesterday. Had inflammatory mass causing sigmoid obstruction. Subsequently had rupture of right colon intraoperatively, necessitating colectomy and washout. 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 Wound is being packed open. Overnight patient received fluid resuscitation of 6 L NS, did achieve adequate CVP, still required norepinephrine. Today receiving packed red blood cells, still on norepinephrine, though that has been titrated down a bit. Remains sedated with propofol on ventilator. Plan to go back to the OR Thursday for washout and possible closure. June 16 Patient remained stable, ventilated and sedated. Remains on some Levophed for blood pressure support. Diuresed well with 40 mg of furosemide yesterday. Still with significant thigh and arm edema. Right pleural effusion on radiograph today, though infiltrates/atelectasis improves. Arterial line started to dampen and not function overnight, was removed. June 17 Patient now postop after planned second look exploratory laparotomy. No evidence of intra-abdominal abscess, final closure performed. Some increased airway pressures postoperatively, had been bagged on the way back to the ICU, which may explain some of her airway pressures and an increase in FiO2, seemed to be improving as the afternoon progresses. Nonpitting edema, urine output is adequate but not brisk, on 100 mils an hour fluid. Still on TPN. Still requiring some NE for BP support. June 18 Norepinephrine weaned off overnight. Remains significantly volume long. During wake up trial this morning, became tachypnea can airway pressures went up , did withdrawal from lower extremity stimuli, but did not open eyes to voice or respond upper extremity stimulus. Had to be re-sedated before this could happen due to her status. Chest x-ray showing some worsening congestion. Between TPN, drips and IV fluids containing almost 200 mL an hour. Will DC maintenance fluids, continuous TPN and drips, give furosemide today. We'll also add fentanyl infusion for baseline pain control in the postoperative state. Also on propofol for sedation. June 19: Patient seen examined, [facility] labs reviewed , worsening leucocytosis today at 16.3, CXR shows patient has bibasilar infiltrates. The patient was weaned off sedation this AM she opened eyes but did not follow commands, She became tachypenic and tachycardic, on wean trial. Pt TV was increased overnight by RT, changed back to 360 this AM repeat ABG to be done in 30 mins. Vancomycin was added yesterday in light of pulmonary infiltrates, Vent parameters AC mode, TV 360 (was 420 in AM), RR 16, Fio2 40, PEEP 5. Peak pressure 26-28, Plat 19-23, I/0 Pt was negative 1225 yesterday. sedation: propofol and fentanyl Diet TPN Riggs in place Right SC in place for central venous access June 20 Patient seen exmined, sedated on vent, Sedation was held this AM, and patient mental status improved, she was better than yesterday, did follow some commands. Placed on pressure support of 7, but became tachycardic and tachypenic after sometime. placed back on AC mode Her wbc is creeping up, we tried to change antibiotics from zosyn to carbapenum , but we are in short supply at this time. Xray done this AM shows significant worsening in her infiltrtes, chf vs ards Vent parameters AC mode TV 360, RR 12 (set), PEEP 5, Fio2 40, Plat 18-24, Peak 25-28 ABG 7.42/45/83 Lact 0.5 Patient responding well to diuresis, was neg 3L yesterday. June 21 Aly wheeler examined no acute overnight issues X ray stable today ABG stable, ph 7.45/45/79, Vent setting unchanged. Peak pressure 25, plat 22 WBC imprving on albumin and lasix bid for gen edema/ ards/ chf off propofol for today to see how she does with her mental status only on fenanyl, mental status much better, able to follow commands and nod to some questions. Plan of care reviewed with the patients daugther June 22 patien seen examined, good mental status off sedatives, following commands She did well on weaning parameters for extubation, vasyl index < 105, SBT on 7 SP was well tolerated with good tidal volues pt extubated this AM, however was short of breath on extubation, She was given duonebs and palced on bipap. The aptient repeat abg was good, x ray showed pulmonary congestion. IV lasix and bipap continued. She is obeying c ommands. for now Sputum cx is suggestive of pseudomonas. d/c vanco, IV cipro added. continue zosyn. wbc mildy uptrended today but pt was on steroids June 23: patient seen examined, no acute overnight issues patient this AM is off bipap and is able on 6L oxygen, still has some shortness of breath ABG showed metabolic alkalosis Continue IV lasixi for diuresis, pt was neg 2.5 L yesterday still has positive 2.5L since admission. Mental status much better able to communicate well On iv zosyn and cipro and flagyl wbc trended down today June 24 Patient seen examined no acute overnight issues patient was on bipap overnight, and is back on nasal canula, bipap used to give some support and help her relax patient is neg now since admission, dose of lasix cut down to 20mg bid, to ensure that she does not get fluid overloaded with her tpn and other fluids resume oral diet as tolerated CXR shows slight worsening of congestion overall we seem to be making good progress June 25 Patient seen examined no acute overnight events, patient was sob this AM and was placed on bipap, 10/5 , fio2 25, tolerating well increase dose of lasix from 20mg bid to 40mg bid Calorie count initiated still on TPN June 26 Patient seen examined, no acute overnight events, not needed bipap but is very weak and fatigued, minimal activity makes her short of breath The patient denies any complaints but seems to be some what frustrated that it s taking her long to recover. Diet is being advanced caloric intake was less than 25% of needs hence TNP will continue cxr improved continue to monitor xfer to tele status in AM tomorrow if resp status remains stable. june 27 Patient seen examined no acute overnight issues this AM was sob, and needed bipap for a short while repeat X rah shows some congestion vs pna resume IV vanco disucssed with surgery on need for flagyl and enteral feeds, plan to d/c fl; agyl but continue TPN for now low grade temp this AM, and slight worsening ofwbc repeat blood and urine cx ordered. June 28 patient seen examined sleeing comfortably in bed denies any complaints not needed bipap since yesterday AM still has poor oral intake if remains stable can be xferrerd to outside unit to a more calmer room. June 29 Pt seen examined no acute overnight events tolerating po somewhat, not adequate but better than yesterday she continues to improve clinically June 30: The patient continues to have poor appetite and poor p.o. intake. Her daughter notes she seem to like the milkshake she brought her from an outside restaurant. Unfortunately she also brought her donuts this morning and patient ate a doughnut and coffee, which was not really on her dysphagia diet. She tolerated those, but then was complaining of stomach upset when I saw her a little bit after. Her daughter would like to bring her outside chicken and rice this evening, as that sounds good to the patient. Dietary has been trying to do calorie count. The patient insists that the food here does not taste good. When I entered her room this morning, she is leaning over onto her bedside table , while sitting in a chair. She says she just feels weak and tired. Her daughter notes that she has been complaining of some mouth soreness, and did have a tongue ulcer once they pulled her ET tube. She has been getting chlorhexidine rinses for that. Otherwise, she denies fever chills, chest pain or shortness of breath, significant abdominal pain, nausea or vomiting, diarrhea or constipation. Riggs catheter remains in place. - Constitutional Vitals: Vital Signs Temp Pulse Resp BP Pulse Ox 99.0 F H 79 17 100/65 98 06/30/17 08:57 06/30/17 07:40 06/30/17 08:57 06/30/17 08:57 06/30/17 08:57 Period Temp Pulse Resp BP Sys/[place] Pulse Ox Last 24 Hr 97.8 F-99.3 F 79-88 14-20 88-132/55-77 94-98 Intake and Output 06/29/17 06/30/17 06/30/17 21:59 05:59 13:59 Intake Total 870 / 870 50 / 50 1066 / 1066 Output Total 2550 / 2550 575 / 575 50 / 50 Balance -1680 / -1680 -525 / -525 1016 / 1016 Weight 136 lb 4.8 oz Accu-Cheks 134-185. Intake & Output: Intake & Output 06/29/17 06/30/17 06/30/17 21:59 05:59 13:59 Intake Total 870 / 870 50 / 50 1066 / 1066 Output Total 2550 / 2550 575 / 575 50 / 50 Balance -1680 / -1680 -525 / -525 1016 / 1016 Weight 136 lb 4.8 oz Intake: IV 350 / 350 50 / 50 1066 / 1066 Calcium Gluconate 5 Meq 1016 / 1016 Magnesium Sulfate 8.12 Meq Sodium Chloride 50 Meq Potassium Phosphate 40 Meq Infuvite Adult 10 ml Selenium 60 Mcg Potassium Chloride 30 Meq In Clinimix 5%-20% Solution 1,000 ml @ 50 mls/hr IV Q21H KRISS Rx#:[id number] Zosyn 3.375 gm In Sodium 100 / 100 50 / 50 50 / 50 Chloride 0.9% 50 ml @ 100 mls/ hr IV Q6H [facility] Rx#:[id number] Vancomycin 1,000 mg In Sodium 250 / 250 Chloride 0.9% 250 ml @ 250 mls/ hr IV Q24H [facility] Rx#:[id number] Oral 520 / 520 Output: Urine Catheter Amount 2450 / 2450 575 / 575 Stool 100 / 100 50 / 50 Other: Meal Dinner Percent of Meal Consumed 25% Feeding Ability Independent On exam, she does appear fatigued. Neck is supple without obvious lymphadenopathy or JVD. Cardiac exam shows regular rate and rhythm. Lungs are clear to auscultation. Abdomen: Bilateral ostomy bags are in place, both with output.. Abdomen appears nontender. Riggs is draining clear yellow urine. Extremities: Show no significant edema. Neurologic exam: The patient does appear fatigued, but otherwise exam is grossly nonfocal Medical - PN: Obj Da - Labs CBC & Chem 7: 06/30/17 04:00 06/30/17 04:00 Labs: Abnormal Lab Results 06/30/17 06/30/17 06/29/17 04:00 04:00 04:03 WBC RBC 3.52 L Hgb 9.5 L Hct 28.5 L RDW 18.4 H Gran % 86.5 H Lymph % (Auto) 5.2 L Gran # 9.4 H Lymph # (Auto) 0.6 L Anion Gap BUN 28 H 31 H Creatinine 0.5 L 0.4 L Glucose 141 H 149 H Uric Acid 1.9 L 2.0 L Calcium 8.4 L GGT 71 H 67 H Total Protein 5.6 L 5.3 L Albumin 3.0 L 2.7 L Ur Leukocyte Esterase Urine Bacteria Hyaline Casts 06/29/17 06/28/17 06/28/17 04:03 08:08 04:00 WBC 12.4 H 13.4 H RBC 3.46 L 3.47 L Hgb 9.3 L 9.3 L Hct 28.2 L 28.1 L RDW 18.0 H 17.3 H Gran % 89.7 H 90.8 H Lymph % (Auto) 3.9 L 2.9 L Gran # 11.1 H 12.2 H Lymph # (Auto) 0.5 L 0.4 L Anion Gap 7.0 L BUN 27 H Creatinine 0.5 L Glucose 153 H Uric Acid 1.9 L Calcium 8.3 L GGT 63 H Total Protein 5.1 L Albumin 2.6 L Ur Leukocyte Esterase Urine Bacteria Hyaline Casts 06/27/17 12:25 WBC RBC Hgb Hct RDW Gran % Lymph % (Auto) Gran # Lymph # (Auto) Anion Gap BUN Creatinine Glucose Uric Acid Calcium GGT Total Protein Albumin Ur Leukocyte Esterase 25 A Urine Bacteria Few A Hyaline Casts 4 H June 27: Urine culture was negative. Chest x-ray: Impression: Persistent bilateral infiltrates and mild pulmonary vascular congestion. Right upper lobe nodular density Blood cultures are negative so far. June 26: ABG: Showed a pH of 7.51, CO2 of 34, PO2 79, O2 saturation 97%. June 21: Sputum culture grew both pseudomonas aeruginosa and Nellie albicans. June 14: Nasal MRSA screen is positive. Meds: Medications Acetaminophen (Tylenol) 650 mg PO Q6HP PRN PRN Reason: PAIN/FEVER > 101 Albuterol Sulfate (Ventolin) 2.5 mg NEB TID KRISS Albuterol Sulfate (Ventolin) 2.5 mg NEB Q2HP PRN PRN Reason: Shortness Of Breath Or Wheezing Artificial Tears (Artificial Tears Ophth Drops) 1 gtt OD QIDP PRN PRN Reason: Dry Eye(s) Chlorhexidine Gluconate (Peridex) 15 ml SWABMOUTH BID [facility] Last Admin: 06/30/17 12:01 Dose: Not Given Dextrose (Dextrose 50%) 25 ml IV UD PRN PRN Reason: Hypoglycemia Dextrose (Dextrose 50%) 0 ml IV UD PRN PRN Reason: Hypoglycemia Diagnostic Test (Pha) (Accu-Chek) 1 each FS Q6 [facility] Last Admin: 06/30/17 05:50 Dose: 1 each Fluconazole (Diflucan) 100 mg PO DAILY [facility] Last Admin: 06/29/17 09:03 Dose: 100 mg Furosemide (Lasix) 40 mg IV DAILY [facility] Last Admin: 06/29/17 09:03 Dose: 40 mg Heparin Sodium (Porcine) (Heparin) 5,000 unit SQ Q12 [facility] Last Admin: 06/29/17 20:59 Dose: 5,000 unit Hydromorphone HCl (Dilaudid) 0.5 mg IV Q1HP PRN PRN Reason: Pain Last Admin: 06/29/17 22:27 Dose: 0.5 mg Fat Emulsion Intravenous 250 (ml/ Premix) 250 mls @ 25 mls/hr IV DAILY@1600 [facility] Last Admin: 06/29/17 16:21 Dose: 25 mls/hr Norepinephrine Bitartrate 16 (mg/ Sodium Chloride) 250 mls @ 9.37 mls/hr IV Q24HP PRN; Protocol; 10 MCG/MIN PRN Reason: TITRATE TO KEEP MAP > 65 Acetaminophen (Ofirmev) 1,000 mg in 100 mls @ 200 mls/hr IV Q6HP PRN PRN Reason: PAIN/FEVER > 101 Piperacillin Sod/Tazobactam (Sod 3.375 gm/ Sodium Chloride) 50 mls @ 100 mls/ hr IV Q6H [facility] Last Infusion: 06/30/17 06:30 Dose: Infused Vancomycin HCl 1,000 mg/ (Sodium Chloride) 250 mls @ 250 mls/hr IV Q24H [facility] Last Infusion: 06/29/17 15:00 Dose: Infused Calcium Gluconate 5 meq/Magnesium Sulfate 8.12 meq/Sodium Chloride 50 meq/ Potassium Phosphate 60 meq/Multivitamins/Minerals 10 ml/Selenium 60 mcg/ Potassium Chloride 30 meq/ Amino Acids 1,065.389 mls @ 50 mls/hr IV Q21H [facility] Last Admin: 06/30/17 09:50 Dose: 50 mls/hr Insulin Human Lispro (Humalog) 0 unit SQ Q6 [facility] PRN Reason: Protocol Last Admin: 06/30/17 05:51 Dose: Not Given Lidocaine HCl (Lidocaine Viscous 2%) 5 ml PO ONCE ONE Stop: 07/01/17 10:23 Lidocaine HCl (Lidocaine Viscous 2%) 5 ml PO Q4HP PRN PRN Reason: Pain Lorazepam (Ativan) 1 mg IV Q4-6HP PRN PRN Reason: ANXIETY/SEDATION Last Admin: 06/29/17 20:59 Dose: 1 mg Nystatin (Nystatin) 500,000 units SSW TID [facility] Ondansetron HCl (Zofran) 4 mg IV Q6HP PRN PRN Reason: Nausea And Vomiting Last Admin: 06/30/17 09:49 Dose: 4 mg Pantoprazole Sodium (Protonix) 40 mg IV BIDAC [facility] Last Admin: 06/30/17 09:49 Dose: 40 mg Prednisone (Prednisone) 40 mg PO QAMCC [facility] Last Admin: 06/29/17 09:02 Dose: 40 mg Sodium Chloride (Saline Flush) 10 ml IV UD PRN PRN Reason: medication Sodium Chloride (Saline Flush) 10 ml IV Q8 [facility] Last Admin: 06/30/17 05:42 Dose: 10 ml Vancomycin HCl (Vancomycin Per Pharmacy) 1 order IV [facility] Medical - PN: A/P - Time Spent With Patient Total time spent is greater than 50% in coordination of care (as documented) at patient's floor/unit and/or counseling patient: 25 - 35 minutes - Narrative A/P Narrative: 77-year-old female without GI illness (though in retrospect has had diverticulitis in past) presents with abdominal pain, nausea and vomiting. Also has urinary tract infection. Evolution of distal colonic obstruction, subsequently went to the operating room on 06/14, resection of sigmoid mass, a contained perforation of transverse colon and spontaneous rupture of right colon intraoperatively. #1. GI/infectious disease. -Acute diverticulitis. . Postop day # 16 , status post exploratory laparotomy, hemicolectomy with ileostomy, Clark's procedure with mucous fistula. both draining well Now Post-op day #14 from re-look and delayed closure. Plan: management as per surgery, ok to feed orally as tolerated. #2.-Pulmonary. -HCAP PNA: Pseudomonas levine sensitive, given new fever and rising wbc vancomycin was added back, pt stable for now.. Zosyn has been likely from the day of admit, but will continue for additional 1 week. to complete 14 days of zosyn after pseudomonas was noted. -Acute respiratory failure : ARDS vs CHF Vs PNA Post extubation day 6. Breathing status is doing fine. BiPAP was discontinued. -asthma: Weaning prednisone. Stop duo nebs. He is scheduled plus as needed albuterol. #3. Nutrition. Malnutrition on TPN, will continue same for now, oral feeds as tolerated, calorie count noted , very poor oral intake. not candiate for NG feeds as if aspiratees has poor pulmonary reserve. -Patient's appetite seems to be improving for outside food, so Dr. Eubanks okayed that. Speech therapy notes she can tolerate regular textures now. #4. Hypokalemia / Hypomagnesemia. Resolved. #5. Anemia: Stable postop. #6. CODE STATUS, discussed with the patient at admission, is DNR #7. Prophylaxis: Protonix, SCD's, hep sq . Disposition: Patient is doing well enough, that [facility]. She continues to be very weak, so we will continue with aggressive physical and occupational therapies. Procedures - Arterial Line Size (Gauge): 20
[2017-06-30] MEDS: FUROSEMIDE 20 MG/2 ML VIAL IV SCH (12:19)
[2017-06-30] MEDS: predniSONE 20 MG TABLET PO SCH (12:20)
[2017-06-30] MEDS: FLUCONAZOLE 100 MG TABLET PO SCH (12:20)
[2017-06-30] MEDS: HEPARIN 5,000 UNIT/ML VIAL SQ SCH ×2 (12:20→21:12)
[2017-06-30] MEDS ORDERED: TPN PER PHARMACY IV SCH (13:57)
[2017-06-30] MEDS ORDERED: ACETAMINOPHEN 325 MG TABLET PO PRN (13:57)
[2017-06-30] MEDS ORDERED: POLYVINYL ALCOHOL OPHTH DROPS 15ML BOTTLE OD PRN (13:57)
[2017-06-30] MEDS ORDERED: VANCOMYCIN PER PHARMACY IV SCH (13:57)
[2017-06-30] MEDS ORDERED: LORazepam 2 MG/ML VIAL IV PRN (13:57)
[2017-06-30] MEDS ORDERED: ONDANSETRON 4 MG/2 ML VIAL IV PRN (13:57)
[2017-06-30] MEDS ORDERED: DEXTROSE 50% 50 ML VIAL IV PRN ×2 (13:57)
[2017-06-30] MEDS: NYSTATIN 500,000 UNITS/5 ML ORAL.SUSP SSW SCH ×2 (14:29→21:12)
[2017-06-30] MEDS ORDERED: ALBUTEROL SULFATE 2.5 MG/3 ML NEBULIZER NEB SCH (15:00)
[2017-06-30] MEDS ORDERED: NYSTATIN 500,000 UNITS/5 ML ORAL.SUSP SSP SCH (15:00)
[2017-06-30] MEDS ORDERED: NYSTATIN 500,000 UNITS/5 ML ORAL.SUSP SSW SCH (15:00)
[2017-06-30] MEDS: ALBUTEROL SULFATE 2.5 MG/3 ML NEBULIZER NEB SCH ×2 (15:39→20:07)
[2017-06-30] MEDS: ACETAMINOPHEN 1,000 MG/100 ML BOTTLE IV PRN ×2 (16:02→23:00)
[2017-06-30] MEDS: FAT EMULSION 20% 250 ML in PREMIX 1 BAG IV SCH (16:04)
--- NOTE | 2017-06-30 16:21 | General Surgery Progress Note ---
Subjective Patient reports: feels better, still having pain, pain is less, tolerating liquids well, flatus, bowel movement, afebrile Narrative: Note initiated : 06/30/17 at 4:19 pm Service Date, if different from initiated Date: [] Patient: Caroline Bellamy 77 y/o F admitted on 06/12/17 for N/V, UTI, Constipation/Colon Obstruction, UTI. Chief Complaint: [patient is doing much better. She is alert and aware and her by mouth intake has improved. The volume of intake is not enough to sustain her without nutritional supplements. She will need aggressive therapy and should be transferred [facility] facility when she is discharged from the hospital. It will probably be more prudent to transfer her to swing bed status prior to discharge to [facility] facility.] Objective Temp Pulse Resp BP Pulse Ox 98.4 F 88 16 91/65 97 06/30/17 12:27 06/30/17 15:50 06/30/17 15:46 06/30/17 12:27 06/30/17 15:50 - Additional Data Intake & Output - Last 24 hours: Intake & Output 06/28/17 06/29/17 06/30/17 07/01/17 05:59 05:59 05:59 05:59 Intake Total 1010 / 1010 1279 / 1279 2581 / 2581 1366 / 1366 Output Total 2270 / 2270 2500 / 2500 3225 / 3225 50 / 50 Balance -1260 / -1260 -1221 / -1221 -644 / -644 1316 / 1316 Weight 134 lb 5 oz 135 lb 4 oz 136 lb 4.8 oz - General physical appearance no distress, moderate pain - Eyes PERRL - ENT no congestion - Neck no venous distension - Respiratory other (lungs are much clearer bilaterally and she has good breath snds with less rhonchi and wheezes) - Cardiovascular Cardiovascular exam: Present: irregular rhythm (heart rate is controlled though irregular) - Abdomen tender, distended (abdomen is minimally distended. She has good active bowel sounds and her stomas are functioning appropriately) - Integumentary no rash, no growths, no abnormal pigmentation - Neurologic normal sensation - Psychiatric oriented to time, oriented to person, oriented to place, speech is normal, memory intact - Labs 06/30/17 04:00 06/30/17 04:00 Diabetes panel 06/30/17 Range/Units 04:00 Sodium 136 (133-145) mmol/L Potassium 4.3 (3.3-5.1) mmol/L Chloride 100 (96-108) mmol/L Carbon Dioxide 24 (22-30) mmol/L BUN 28 H (8-23) mg/dl Creatinine 0.5 L (0.6-1.1) mg/dl Glucose 141 H (70-105) mg/dL Calcium 8.7 (8.6-10.4) mg/dl AST 10 (0-37) U/l ALT 9 (0-40) U/l Alkaline Phosphatase 59 (39-117) U/L Total Protein 5.6 L (5.9-8.4) gm/dL Albumin 3.0 L (3.2-5.2) gm/dL Triglycerides 112 (<150) mg/dl Calcium panel 06/30/17 Range/Units 04:00 Calcium 8.7 (8.6-10.4) mg/dl Phosphorus 2.9 (2.7-4.5) mg/dL Albumin 3.0 L (3.2-5.2) gm/dL Pituitary panel 06/30/17 Range/Units 04:00 Sodium 136 (133-145) mmol/L Potassium 4.3 (3.3-5.1) mmol/L Chloride 100 (96-108) mmol/L Carbon Dioxide 24 (22-30) mmol/L BUN 28 H (8-23) mg/dl Creatinine 0.5 L (0.6-1.1) mg/dl Glucose 141 H (70-105) mg/dL Calcium 8.7 (8.6-10.4) mg/dl Adrenal panel 06/30/17 Range/Units 04:00 Sodium 136 (133-145) mmol/L Potassium 4.3 (3.3-5.1) mmol/L Chloride 100 (96-108) mmol/L Carbon Dioxide 24 (22-30) mmol/L BUN 28 H (8-23) mg/dl Creatinine 0.5 L (0.6-1.1) mg/dl Glucose 141 H (70-105) mg/dL Calcium 8.7 (8.6-10.4) mg/dl Total Bilirubin 0.3 (0.0-1.0) mg/dL AST 10 (0-37) U/l ALT 9 (0-40) U/l Alkaline Phosphatase 59 (39-117) U/L Total Protein 5.6 L (5.9-8.4) gm/dL Albumin 3.0 L (3.2-5.2) gm/dL Assessment and Plan (1) Colon obstruction Problem details: Mass in sigmoid, resected 06/14/2017-diverticulitis Status: Acute Assessment and plan: General status is better than on yesterday P.o. intake is still very poor Motivation for increased activity is poor Current Visit: Yes (2) Anemia Status: Acute Assessment and plan: she has stable hgb over the past 24 hr Current Visit: Yes - Time Spent With Patient Total time spent is greater than 50% in coordination of care (as documented) at patient's floor/unit and/or counseling patient:
[2017-06-30] MEDS: HYDROmorphone 2 MG/ML SYRINGE IV PRN (18:20)
[2017-06-30] MEDS: 0.9 % SODIUM CHLORIDE 10 ML SYRINGE IV PRN (18:22)
[2017-07-01] MEDS: PIPERACILLIN SODIUM/TAZOBACTAM 3.375 GM in 0.9 % SODIUM CHLORIDE 50 ML IV SCH ×4 (00:15→17:14)
[2017-07-01] MEDS: INSULIN LISPRO 1 UNIT/0.01 ML UNIT SQ SCH ×4 (00:16→17:21)
[2017-07-01] MEDS: ACETAMINOPHEN 1,000 MG/100 ML BOTTLE IV PRN (04:58)
[2017-07-01] MEDS: 0.9 % SODIUM CHLORIDE 10 ML SYRINGE IV SCH ×3 (05:02→21:41)
[2017-07-01] MEDS: HYDROmorphone 2 MG/ML SYRINGE IV PRN ×3 (05:20→19:03)
[2017-07-01 06:28] LABS: Basophils # (Auto) 0 K/mcL (0.0-0.3); Basophils % (Auto) 0 % (0.0-2.0); Eosinophils # (Auto) 0.1 K/mcL (0.0-0.7); Eosinophils % (Auto) 0.7 % (0.0-7.0); Granulocytes % (Auto) 86.9 % (38.0-78.0); Lymphocytes # (Auto) 0.6 K/mcL (1.5-4.8); Lymphocytes % (Auto) 5.7 % (15.5-49.0); Mean Corpuscular HGB Conc 33.9 g/dL (31.0-36.0); Mean Corpuscular Hemoglobin 27.1 pg (26.0-34.0); Monocytes # (Auto) 0.7 K/mcL (0.1-0.9); Monocytes % (Auto) 6.7 % (1.0-12.0); Platelet Count 395 K/mcL (140-440); RBC 3.53 M/mcL (4.00-5.20); Red Cell Distribution Width 18.3 % (11.5-14.5)
[2017-07-01 06:46] LABS: ALT/SGPT 9 U/l (0-40); Albumin 2.8 gm/dL (3.2-5.2); Alkaline Phosphatase 63 U/L (39-117); Bilirubin,Direct < 0.2 mg/dL (0.0-0.3); Blood Urea Nitrogen 30 mg/dl (8-23); Gamma Glutamyl Transpeptidase 73 U/L (5-36); Magnesium 2.3 mg/dL (1.6-2.5)
[2017-07-01] MEDS ORDERED: CALCIUM GLUCONATE IV SCH (07:00)
[2017-07-01] MEDS ORDERED: MAGNESIUM SULFATE IV SCH (07:00)
[2017-07-01] MEDS ORDERED: [UNRECOGNIZED DRUG - OTHER] IV SCH (07:00)
[2017-07-01] MEDS ORDERED: SODIUM CHLORIDE IV SCH (07:00)
[2017-07-01] MEDS: PANTOPRAZOLE 40 MG VIAL IV SCH ×2 (07:57→17:14)
[2017-07-01] MEDS ORDERED: LIDOCAINE VISCOUS 2% 1 ML SOLUTION PO ONE (10:22)
[2017-07-01] MEDS: HEPARIN 5,000 UNIT/ML VIAL SQ SCH ×2 (10:29→21:40)
[2017-07-01] MEDS: FLUCONAZOLE 100 MG TABLET PO SCH (10:29)
[2017-07-01] MEDS: NYSTATIN 500,000 UNITS/5 ML ORAL.SUSP SSW SCH ×3 (10:29→21:41)
[2017-07-01] MEDS: predniSONE 20 MG TABLET PO SCH (10:31)
[2017-07-01] MEDS: VANCOMYCIN 1,000 MG in 0.9 % SODIUM CHLORIDE 250 ML IV SCH (10:35)
--- NOTE | 2017-07-01 12:12 | General Surgery Progress Note ---
Subjective Patient reports: feels better, pain is less, tolerating a regular diet, flatus, bowel movement, afebrile Narrative: Note initiated : 07/01/17 at 12:09 pm Service Date, if different from initiated Date: [] Patient: Caroline Bellamy 77 y/o F admitted on 06/12/17 for N/V, UTI, Constipation/Colon Obstruction, UTI. Chief Complaint: [patient is doing well and is much more alert. She is still intermittently confused but she reorients rather quickly. She does not complain of pain. She denies shortness of breath and her exercise tolerance is improving She is taking in more by mouth intake but not enough to sustain her Her only complaint is a sore mouth. She has developing mucosal ulcers. She has been started on nystatin mouthwash.] Objective Temp Pulse Resp BP Pulse Ox 97.5 F 71 20 112/60 95 07/01/17 07:52 07/01/17 08:00 07/01/17 07:52 07/01/17 07:52 07/01/17 04:00 - Additional Data Intake & Output - Last 24 hours: Intake & Output 06/29/17 06/30/17 07/01/17 07/02/17 05:59 05:59 05:59 05:59 Intake Total 1279 / 1279 2581 / 2581 1786 / 1786 490 / 490 Output Total 2500 / 2500 3225 / 3225 2150 / 2150 Balance -1221 / -1221 -644 / -644 -364 / -364 490 / 490 Weight 135 lb 4 oz 136 lb 4.8 oz 138 lb 8 oz - General physical appearance no distress, no pain - Eyes PERRL - ENT no congestion - Neck no masses, no venous distension - Respiratory normal respiratory effort, clear to auscultation - Cardiovascular Cardiovascular exam: Present: irregular rhythm, +S1, +S2. Absent: JVD - Abdomen soft, non tender, bowel sounds (abdomen is mildly distended; she has good active bowel sounds. Her incision looks good and her stomal site healthy) - Integumentary no rash (S), no growths, no abnormal pigmentation - Neurologic normal coordination, normal sensation - Psychiatric oriented to time, oriented to person, oriented to place, speech is normal, memory intact - Labs 07/01/17 04:00 07/01/17 04:00 Diabetes panel 07/01/17 Range/Units 04:00 Sodium 135 (133-145) mmol/L Potassium 4.6 (3.3-5.1) mmol/L Chloride 103 (96-108) mmol/L Carbon Dioxide 23 (22-30) mmol/L BUN 30 H (8-23) mg/dl Creatinine 0.5 L (0.6-1.1) mg/dl Glucose 135 H (70-105) mg/dL Calcium 8.8 (8.6-10.4) mg/dl AST 11 (0-37) U/l ALT 9 (0-40) U/l Alkaline Phosphatase 63 (39-117) U/L Total Protein 5.6 L (5.9-8.4) gm/dL Albumin 2.8 L (3.2-5.2) gm/dL Triglycerides 110 (<150) mg/dl Calcium panel 07/01/17 Range/Units 04:00 Calcium 8.8 (8.6-10.4) mg/dl Phosphorus 3.6 (2.7-4.5) mg/dL Albumin 2.8 L (3.2-5.2) gm/dL Pituitary panel 07/01/17 Range/Units 04:00 Sodium 135 (133-145) mmol/L Potassium 4.6 (3.3-5.1) mmol/L Chloride 103 (96-108) mmol/L Carbon Dioxide 23 (22-30) mmol/L BUN 30 H (8-23) mg/dl Creatinine 0.5 L (0.6-1.1) mg/dl Glucose 135 H (70-105) mg/dL Calcium 8.8 (8.6-10.4) mg/dl Adrenal panel 07/01/17 Range/Units 04:00 Sodium 135 (133-145) mmol/L Potassium 4.6 (3.3-5.1) mmol/L Chloride 103 (96-108) mmol/L Carbon Dioxide 23 (22-30) mmol/L BUN 30 H (8-23) mg/dl Creatinine 0.5 L (0.6-1.1) mg/dl Glucose 135 H (70-105) mg/dL Calcium 8.8 (8.6-10.4) mg/dl Total Bilirubin 0.3 (0.0-1.0) mg/dL AST 11 (0-37) U/l ALT 9 (0-40) U/l Alkaline Phosphatase 63 (39-117) U/L Total Protein 5.6 L (5.9-8.4) gm/dL Albumin 2.8 L (3.2-5.2) gm/dL Assessment and Plan (1) Colon obstruction Problem details: Mass in sigmoid, resected 06/14/2017-diverticulitis Status: Acute Assessment and plan: General status is better than on yesterday Current Visit: Yes (2) Anemia Status: Acute Assessment and plan: she has stable hgb over the past 24 hr Current Visit: Yes - Time Spent With Patient Total time spent is greater than 50% in coordination of care (as documented) at patient's floor/unit and/or counseling patient:
--- NOTE | 2017-07-01 13:15 | Internal Med Progress Note ---
Medical - PN: Subj Patient information: Note initiated : 07/01/17 at 1:15 pm Service Date, if different from initiated Date: [] Patient: Caroline Bellamy a 77 y/o F admitted on 06/12/17 for N/V, UTI, Constipation/Colon Obstruction, UTI. Chief Complaint: [] Interval history: June 12 Ms. Adiel Cardoso is a 77 year old F who presents to the ED with ongoing complaints of abdominal pain. Patient awoke last Thursday with abdominal pain. She was also nauseated. She was seen in the emergency department due to ongoing symptoms on Thursday, 06/08. CT scan at that time showed some colonic thickening and wall edema without significant inflammatory changes. There was also diverticulosis. She had evidence of urinary tract infection and was started on Septra. Patient remained nauseated and was unable to take the Septra. She continued to have significant abdominal pain, up to 06/09. On the day following her ED visit , she was nauseated and was unable to keep anything down. She presented back to the emergency department, had Bactrim stopped and was changed over to ciprofloxacin. Neither the patient nor her family were aware that a new prescription of been generated and it was never picked up. On Thursday and she continued to have vomiting which was without blood. She continued to have significant abdominal pain up to "08/09". She presents back to the emergency department today because of ongoing abdominal pain, nausea and vomiting. With the onset of the pain a week ago, the pain was severe and was in the left lower quadrant, changing over to the right lower quadrant and becoming generalized as last week has progressed. She describes the quality of the pain is constant and aching with intermittent bouts of stabbing pain. Associated with nausea, vomiting without hematemesis. She has hydrocodone prescription for chronic back pain, that has helped her pain somewhat, though she has had some difficulty keeping medications down. She tried an oral Zofran, was able to keep one done yesterday, but not today. June 13 She is still complaining of significant abdominal pain, more so on the right side from the right upper and right lower quadrant. Tolerating clears, nausea has improved, no ecchymosis. She did have one small hard bowel movement, then to softer ones. She did receive bisacodyl rectally, also oral milk of magnesia and senna last evening. No fever, no chills. No significant dyspnea, has used 1 as needed nebulizer therapy. CT of the abdomen and pelvis was obtained due to ongoing pain. Spoke with radiology, films reviewed, she has dilated colon, ascending, transverse, descending with a transition point in the sigmoid where it decompresses. No pericolonic inflammatory changes, no mural thickening. Patient currently undergoing delayed images to see if there is passage of contrast. June 14 Still complaining of abdominal pain. Had some desaturation overnight, on oxygen. Received dose of furosemide earlier today. Still requiring regular Dilaudid today, though when I see her this morning the interval between when necessary doses has increased somewhat. Final results of CTAP yesterday without passage of contrast. I discussed the case with Dr. Eubanks last evening, he is seeing the patient today , plans to take to the operating room. Her white count was increased to 22,000 today. Ceftriaxone changed to Zosyn this morning. June 15 Patient currently in the intensive care unit following surgery yesterday. Had inflammatory mass causing sigmoid obstruction. Subsequently had rupture of right colon intraoperatively, necessitating colectomy and washout. 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 Wound is being packed open. Overnight patient received fluid resuscitation of 6 L NS, did achieve adequate CVP, still required norepinephrine. Today receiving packed red blood cells, still on norepinephrine, though that has been titrated down a bit. Remains sedated with propofol on ventilator. Plan to go back to the OR Thursday for washout and possible closure. June 16 Patient remained stable, ventilated and sedated. Remains on some Levophed for blood pressure support. Diuresed well with 40 mg of furosemide yesterday. Still with significant thigh and arm edema. Right pleural effusion on radiograph today, though infiltrates/atelectasis improves. Arterial line started to dampen and not function overnight, was removed. June 17 Patient now postop after planned second look exploratory laparotomy. No evidence of intra-abdominal abscess, final closure performed. Some increased airway pressures postoperatively, had been bagged on the way back to the ICU, which may explain some of her airway pressures and an increase in FiO2, seemed to be improving as the afternoon progresses. Nonpitting edema, urine output is adequate but not brisk, on 100 mils an hour fluid. Still on TPN. Still requiring some NE for BP support. June 18 Norepinephrine weaned off overnight. Remains significantly volume long. During wake up trial this morning, became tachypnea can airway pressures went up , did withdrawal from lower extremity stimuli, but did not open eyes to voice or respond upper extremity stimulus. Had to be re-sedated before this could happen due to her status. Chest x-ray showing some worsening congestion. Between TPN, drips and IV fluids containing almost 200 mL an hour. Will DC maintenance fluids, continuous TPN and drips, give furosemide today. We'll also add fentanyl infusion for baseline pain control in the postoperative state. Also on propofol for sedation. June 19: Patient seen examined, off pressors but [facility]. labs reviewed , worsening leucocytosis today at 16.3, CXR shows patient has bibasilar infiltrates. The patient was weaned off sedation this AM she opened eyes but did not follow commands, She became tachypenic and tachycardic, on wean trial. Pt TV was increased overnight by RT, changed back to 360 this AM repeat ABG to be done in 30 mins. Vancomycin was added yesterday in light of pulmonary infiltrates, Vent parameters AC mode, TV 360 (was 420 in AM), RR 16, Fio2 40, PEEP 5. Peak pressure 26-28, Plat 19-23, I/0 Pt was negative 1225 yesterday. sedation: propofol and fentanyl Diet TPN Riggs in place Right SC in place for central venous access June 20 Patient seen exmined, sedated on vent, Sedation was held this AM, and patient mental status improved, she was better than yesterday, did follow some commands. Placed on pressure support of 7, but became tachycardic and tachypenic after sometime. placed back on AC mode Her wbc is creeping up, we tried to change antibiotics from zosyn to carbapenum , but we are in short supply at this time. Xray done this AM shows significant worsening in her infiltrtes, chf vs ards Vent parameters AC mode TV 360, RR 12 (set), PEEP 5, Fio2 40, Plat 18-24, Peak 25-28 ABG 7.42/45/83 Lact 0.5 Patient responding well to diuresis, was neg 3L yesterday. June 21 Aly wheeler examined no acute overnight issues X ray stable today ABG stable, ph 7.45/45/79, Vent setting unchanged. Peak pressure 25, plat 22 WBC imprving on albumin and lasix bid for gen edema/ ards/ chf off propofol for today to see how she does with her mental status only on fenanyl, mental status much better, able to follow commands and nod to some questions. Plan of care reviewed with the patients daugther June 22 patien seen examined, good mental status off sedatives, following commands She did well on weaning parameters for extubation, vasyl index < 105, SBT on 7 SP was well tolerated with good tidal volues pt extubated this AM, however was short of breath on extubation, She was given duonebs and palced on bipap. The aptient repeat abg was good, x ray showed pulmonary congestion. IV lasix and bipap continued. She is obeying c ommands. for now Sputum cx is suggestive of pseudomonas. d/c vanco, IV cipro added. continue zosyn. wbc mildy uptrended today but pt was on steroids June 23: patient seen examined, no acute overnight issues patient this AM is off bipap and is able on 6L oxygen, still has some shortness of breath ABG showed metabolic alkalosis Continue IV lasixi for diuresis, pt was neg 2.5 L yesterday still has positive 2.5L since admission. Mental status much better able to communicate well On iv zosyn and cipro and flagyl wbc trended down today June 24 Patient seen examined no acute overnight issues patient was on bipap overnight, and is back on nasal canula, bipap used to give some support and help her relax patient is neg now since admission, dose of lasix cut down to 20mg bid, to ensure that she does not get fluid overloaded with her tpn and other fluids resume oral diet as tolerated CXR shows slight worsening of congestion overall we seem to be making good progress June 25 Patient seen examined no acute overnight events, patient was sob this AM and was placed on bipap, 10/5 , fio2 25, tolerating well increase dose of lasix from 20mg bid to 40mg bid Calorie count initiated still on TPN June 26 Patient seen examined, no acute overnight events, not needed bipap but is very weak and fatigued, minimal activity makes her short of breath The patient denies any complaints but seems to be some what frustrated that it s taking her long to recover. Diet is being advanced caloric intake was less than 25% of needs hence TNP will continue cxr improved continue to monitor xfer to tele status in AM tomorrow if resp status remains stable. june 27 Patient seen examined no acute overnight issues this AM was sob, and needed bipap for a short while repeat X rah shows some congestion vs pna resume IV vanco disucssed with surgery on need for flagyl and enteral feeds, plan to d/c fl; agyl but continue TPN for now low grade temp this AM, and slight worsening ofwbc repeat blood and urine cx ordered. June 28 patient seen examined sleeing comfortably in bed denies any complaints not needed bipap since yesterday AM still has poor oral intake if remains stable can be xferrerd to outside unit to a more calmer room. June 29 Pt seen examined no acute overnight events tolerating po somewhat, not adequate but better than yesterday she continues to improve clinically June 30: The patient continues to have poor appetite and poor p.o. intake. Her daughter notes she seem to like the milkshake she brought her from an outside restaurant. Unfortunately she also brought her donuts this morning and patient ate a doughnut and coffee, which was not really on her dysphagia diet. She tolerated those, but then was complaining of stomach upset when I saw her a little bit after. Her daughter would like to bring her outside chicken and rice this evening, as that sounds good to the patient. Dietary has been trying to do calorie count. The patient insists that the food here does not taste good. When I entered her room this morning, she is leaning over onto her bedside table , while sitting in a chair. She says she just feels weak and tired. Her daughter notes that she has been complaining of some mouth soreness, and did have a tongue ulcer once they pulled her ET tube. She has been getting chlorhexidine rinses for that. Otherwise, she denies fever chills, chest pain or shortness of breath, significant abdominal pain, nausea or vomiting, diarrhea or constipation. Riggs catheter remains in place. July 01: Today, the patient is a little more awake and alert. She says she was eating and tolerating breakfast, but then 1 of her ostomy bags leaked a little, and it made her lose her appetite. Her back pain is stable. She otherwise denies fever chills, chest pain or palpitations, shortness of breath, abdominal pain, nausea or vomiting. Leukocytosis continues to improve. She is afebrile, and vital signs are otherwise stable. - Constitutional Vitals: Vital Signs Temp Pulse Resp BP Pulse Ox 98 F 71 20 98/62 95 07/01/17 12:00 07/01/17 08:00 07/01/17 12:00 07/01/17 12:00 07/01/17 12:00 Period Temp Pulse Resp BP Sys/[place] Pulse Ox Last 24 Hr 97.5 F-98.9 F 71-92 16-24 94-112/50-64 95-97 Intake and Output 06/30/17 07/01/17 07/01/17 21:59 05:59 13:59 Intake Total 150 / 150 320 / 320 490 / 490 Output Total 1450 / 1450 650 / 650 Balance -1300 / -1300 -330 / -330 490 / 490 Weight 138 lb 8 oz Intake & Output: Intake & Output 06/30/17 07/01/17 07/01/17 21:59 05:59 13:59 Intake Total 150 / 150 320 / 320 490 / 490 Output Total 1450 / 1450 650 / 650 Balance -1300 / -1300 -330 / -330 490 / 490 Weight 138 lb 8 oz Intake: IV 150 / 150 200 / 200 250 / 250 Zosyn 3.375 gm In Sodium 50 / 50 100 / 100 Chloride 0.9% 50 ml @ 100 mls/ hr IV Q6H [facility] Rx#:[id number] Vancomycin 1,000 mg In Sodium 250 / 250 Chloride 0.9% 250 ml @ 250 mls/ hr IV Q24H [facility] Rx#:[id number] Oral 120 / 120 240 / 240 Output: Urine Catheter Amount 1450 / 1450 550 / 550 Stool 100 / 100 Other: Meal Breakfast Percent of Meal Consumed 0% Feeding Ability Independent She is sitting up in bed, awake and alert. Neck is supple without obvious lymphadenopathy or JVD. Cardiac exam shows regular rate and rhythm. Lungs are clear to auscultation. Abdomen: Bilateral ostomy bags are in place, both with output.. There is some leakage from the medial corner of the right ostomy bag. Abdomen appears nontender. Riggs is draining clear yellow urine. The stapled suture line looks fine, without discharge. Extremities: Show no significant edema. Neurologic exam: The patient does appear fatigued, but otherwise exam is grossly nonfocal Medical - PN: Obj Da - Labs CBC & Chem 7: 07/01/17 04:00 07/01/17 04:00 Labs: Abnormal Lab Results 07/01/17 07/01/17 06/30/17 04:00 04:00 04:00 WBC RBC 3.53 L Hgb 9.6 L Hct 28.2 L RDW 18.3 H Gran % 86.9 H Lymph % (Auto) 5.7 L Gran # 9.5 H Lymph # (Auto) 0.6 L BUN 30 H 28 H Creatinine 0.5 L 0.5 L Glucose 135 H 141 H Uric Acid 2.0 L 1.9 L Calcium GGT 73 H 71 H Total Protein 5.6 L 5.6 L Albumin 2.8 L 3.0 L 06/30/17 06/29/17 06/29/17 04:00 04:03 04:03 WBC 12.4 H RBC 3.52 L 3.46 L Hgb 9.5 L 9.3 L Hct 28.5 L 28.2 L RDW 18.4 H 18.0 H Gran % 86.5 H 89.7 H Lymph % (Auto) 5.2 L 3.9 L Gran # 9.4 H 11.1 H Lymph # (Auto) 0.6 L 0.5 L BUN 31 H Creatinine 0.4 L Glucose 149 H Uric Acid 2.0 L Calcium 8.4 L GGT 67 H Total Protein 5.3 L Albumin 2.7 L June 27: Urine culture was negative. Chest x-ray: Impression: Persistent bilateral infiltrates and mild pulmonary vascular congestion. Right upper lobe nodular density Blood cultures are negative so far. June 26: ABG: Showed a pH of 7.51, CO2 of 34, PO2 79, O2 saturation 97%. June 21: Sputum culture grew both pseudomonas aeruginosa and Nellie albicans. June 14: Nasal MRSA screen is positive. Meds: Medications Acetaminophen (Tylenol) 650 mg PO Q6HP PRN PRN Reason: PAIN/FEVER > 101 Albuterol Sulfate (Ventolin) 2.5 mg NEB Q2HP PRN PRN Reason: Shortness Of Breath Or Wheezing Albuterol Sulfate (Ventolin) 2.5 mg NEB TID [facility] Last Admin: 06/30/17 20:07 Dose: 2.5 mg Artificial Tears (Artificial Tears Ophth Drops) 1 gtt OD QIDP PRN PRN Reason: Dry Eye(s) Dextrose (Dextrose 50%) 25 ml IV UD PRN PRN Reason: Hypoglycemia Dextrose (Dextrose 50%) 0 ml IV UD PRN PRN Reason: Hypoglycemia Diagnostic Test (Pha) (Accu-Chek) 1 each FS Q6 [facility] Last Admin: 07/01/17 12:08 Dose: 1 each Fluconazole (Diflucan) 100 mg PO DAILY [facility] Last Admin: 07/01/17 10:29 Dose: 100 mg Heparin Sodium (Porcine) (Heparin) 5,000 unit SQ Q12 [facility] Last Admin: 07/01/17 10:29 Dose: 5,000 unit Hydromorphone HCl (Dilaudid) 0.5 mg IV Q1HP PRN PRN Reason: Pain Last Admin: 07/01/17 12:08 Dose: 0.5 mg Fat Emulsion Intravenous 250 (ml/ Premix) 250 mls @ 25 mls/hr IV DAILY@1600 [facility] Last Admin: 06/30/17 16:04 Dose: 25 mls/hr Acetaminophen (Ofirmev) 1,000 mg in 100 mls @ 200 mls/hr IV Q6HP PRN PRN Reason: PAIN/FEVER > 101 Last Admin: 07/01/17 04:58 Dose: 200 mls/hr Piperacillin Sod/Tazobactam (Sod 3.375 gm/ Sodium Chloride) 50 mls @ 100 mls/ hr IV Q6H [facility] Last Admin: 07/01/17 12:11 Dose: 100 mls/hr Vancomycin HCl 1,000 mg/ (Sodium Chloride) 250 mls @ 250 mls/hr IV Q24H [facility] Last Infusion: 07/01/17 12:00 Dose: Infused Calcium Gluconate 5 meq/Magnesium Sulfate 8.12 meq/Sodium Chloride 50 meq/ Potassium Phosphate 60 meq/Multivitamins/Minerals 10 ml/Selenium 60 mcg/ Potassium Chloride 30 meq/ Amino Acids 1,065.389 mls @ 50 mls/hr IV Q21H [facility] Stop: 07/02/17 03:59 Last Admin: 07/01/17 07:56 Dose: 50 mls/hr Calcium Gluconate 5 meq/Magnesium Sulfate 8.12 meq/Sodium Chloride 50 meq/ Potassium Phosphate 40 meq/Multivitamins/Minerals 10 ml/Selenium 60 mcg/ Potassium Chloride 30 meq/ Amino Acids 1,060.8435 mls @ 50 mls/hr IV Q21H [facility] Insulin Human Lispro (Humalog) 0 unit SQ Q6 [facility] PRN Reason: Protocol Last Admin: 07/01/17 12:10 Dose: Not Given Lidocaine HCl (Lidocaine Viscous 2%) 5 ml PO Q4HP PRN PRN Reason: Pain Lorazepam (Ativan) 1 mg IV Q4-6HP PRN PRN Reason: ANXIETY/SEDATION Nystatin (Nystatin) 500,000 units SSW TID [facility] Last Admin: 07/01/17 10:29 Dose: 500,000 units Ondansetron HCl (Zofran) 4 mg IV Q6HP PRN PRN Reason: Nausea And Vomiting Last Admin: 06/30/17 16:47 Dose: 4 mg Pantoprazole Sodium (Protonix) 40 mg IV BIDAC [facility] Last Admin: 07/01/17 07:57 Dose: 40 mg Prednisone (Prednisone) 30 mg PO QAC [facility] Last Admin: 07/01/17 10:31 Dose: 30 mg Sodium Chloride (Saline Flush) 10 ml IV UD PRN PRN Reason: medication Last Admin: 06/30/17 18:22 Dose: 10 ml Sodium Chloride (Saline Flush) 10 ml IV Q8 [facility] Last Admin: 07/01/17 05:02 Dose: 10 ml Vancomycin HCl (Vancomycin Per Pharmacy) 1 order IV [place] [facility] [place] Medical - PN: A/P - Time Spent With Patient Total time spent is greater than 50% in coordination of care (as documented) at patient's floor/unit and/or counseling patient: 25 - 35 minutes - Narrative A/P Narrative: 77-year-old female without GI illness (though in retrospect has had diverticulitis in past) presents with abdominal pain, nausea and vomiting. Also has urinary tract infection. Evolution of distal colonic obstruction, subsequently went to the operating room on 06/14, resection of sigmoid mass, a contained perforation of transverse colon and spontaneous rupture of right colon intraoperatively. #1. GI/infectious disease. -Acute diverticulitis. . Postop day # 17 , status post exploratory laparotomy, hemicolectomy with ileostomy, Clark's procedure with mucous fistula. both draining well Now Post-op day #15 from re-look and delayed closure. Plan: management as per surgery, -Advancing diet as tolerated. -She had some leakage from 1 of the bags today, which she originally thought was from her incision, but it does not appear this was the case. #2.-Pulmonary. -HCAP PNA: Pseudomonas levine sensitive, given new fever and rising wbc vancomycin was added back, pt stable for now.. Zosyn has been likely from the day of admit, but will continue for additional 1 week. to complete 14 days of zosyn after pseudomonas was noted. -Acute respiratory failure : ARDS vs CHF Vs PNA Post extubation day 6. Breathing status is doing fine. BiPAP was discontinued. -asthma: Weaning prednisone. Stop duo nebs. He is scheduled plus as needed albuterol. #3. Nutrition. Malnutrition on TPN, will continue same for now, oral feeds as tolerated, calorie count noted , very poor oral intake.. -Patient's appetite seems to be improving for outside food, so Dr. Eubanks okayed that. Speech therapy notes she can tolerate regular textures now. #4. Hypokalemia / Hypomagnesemia. Resolved. #5. Anemia: Stable postop. #6. CODE STATUS, discussed with the patient at admission, is DNR #7. Prophylaxis: Protonix, SCD's, hep sq . Disposition: She continues to be very weak, so we will continue with aggressive physical and occupational therapies. Procedures - Arterial Line Size (Gauge): 20
[2017-07-01] MEDS: FAT EMULSION 20% 250 ML in PREMIX 1 BAG IV SCH (16:09)
[2017-07-01] MEDS: ALBUTEROL SULFATE 2.5 MG/3 ML NEBULIZER NEB SCH ×3 (16:17→21:12)
[2017-07-01] MEDS: 0.9 % SODIUM CHLORIDE 10 ML SYRINGE IV PRN (19:04)
[2017-07-02] MEDS: PIPERACILLIN SODIUM/TAZOBACTAM 3.375 GM in 0.9 % SODIUM CHLORIDE 50 ML IV SCH ×3 (00:05→11:41)
[2017-07-02] MEDS: INSULIN LISPRO 1 UNIT/0.01 ML UNIT SQ SCH ×3 (00:45→11:43)
[2017-07-02] MEDS ORDERED: CALCIUM GLUCONATE IV SCH (04:00)
[2017-07-02] MEDS ORDERED: MAGNESIUM SULFATE IV SCH (04:00)
[2017-07-02] MEDS ORDERED: [UNRECOGNIZED DRUG - OTHER] IV SCH (04:00)
[2017-07-02] MEDS ORDERED: SODIUM CHLORIDE IV SCH (04:00)
[2017-07-02] MEDS: 0.9 % SODIUM CHLORIDE 10 ML SYRINGE IV SCH (05:30)
[2017-07-02 06:25] LABS: Basophils # (Auto) 0 K/mcL (0.0-0.3); Basophils % (Auto) 0 % (0.0-2.0); Eosinophils # (Auto) 0.1 K/mcL (0.0-0.7); Eosinophils % (Auto) 0.6 % (0.0-7.0); Granulocytes % (Auto) 85.7 % (38.0-78.0); Lymphocytes # (Auto) 0.5 K/mcL (1.5-4.8); Lymphocytes % (Auto) 5.5 % (15.5-49.0); Mean Corpuscular HGB Conc 33.3 g/dL (31.0-36.0); Mean Corpuscular Hemoglobin 26.6 pg (26.0-34.0); Monocytes # (Auto) 0.7 K/mcL (0.1-0.9); Monocytes % (Auto) 8.2 % (1.0-12.0); Platelet Count 330 K/mcL (140-440); RBC 3.56 M/mcL (4.00-5.20)
[2017-07-02 06:39] LABS: ALT/SGPT 10 U/l (0-40); Albumin 2.9 gm/dL (3.2-5.2); Albumin/Globulin Ratio 1.2 (1.0-2.3); Alkaline Phosphatase 63 U/L (39-117); Bilirubin,Direct < 0.2 mg/dL (0.0-0.3); Blood Urea Nitrogen 21 mg/dl (8-23); Gamma Glutamyl Transpeptidase 70 U/L (5-36); Magnesium 2.2 mg/dL (1.6-2.5); Uric Acid 1.6 mg/dL (2.5-8.0)
[2017-07-02] MEDS: PANTOPRAZOLE 40 MG VIAL IV SCH (07:24)
[2017-07-02] MEDS: FLUCONAZOLE 100 MG TABLET PO SCH (09:11)
[2017-07-02] MEDS: predniSONE 20 MG TABLET PO SCH (09:11)
[2017-07-02] MEDS: NYSTATIN 500,000 UNITS/5 ML ORAL.SUSP SSW SCH (09:11)
[2017-07-02] MEDS: HEPARIN 5,000 UNIT/ML VIAL SQ SCH (09:11)
[2017-07-02] MEDS ORDERED: VANCOMYCIN 1,500 MG in 0.9 % SODIUM CHLORIDE 500 ML IV SCH (10:00)
[2017-07-02] MEDS: VANCOMYCIN 1,000 MG in 0.9 % SODIUM CHLORIDE 250 ML IV SCH (11:07)
--- NOTE | 2017-07-02 12:04 | Discharge Summary ---
Medical - DS: Prov Patient information: Note initiated : 07/02/17 at 11:58 am Patient: Caroline Bellamy 77 y/o F admitted on 06/12/17 for N/V, UTI, Constipation/Colon Obstruction, UTI. Date of admission: 06/12/17 17:13 Discharge date: 07/02/17 Primary care physician: Montana Mohamud Admitting clinician: Harper Huffman Consults: 06/13/17 20:39 Consult to Physician [CONS] Routine Comment: Consulting Provider: Amada Eubanks Reason For Exam: Physician to Consult Attending physician on discharge: Jaylene Nicholson Medical - DS: Meds - Discharge Medications Active and Home Medications: Discharge medications: Saline flush for IV site every 8 hours as needed Accu-Cheks every 6 hours Tylenol 650 mg every 6 hours as needed Albuterol nebulizer every 2 hours as needed TPN as per pharmacy Diflucan 100 mg daily, this can be discontinued. Heparin 5000 units subcu every 12 hours until ambulatory Dilaudid 0.5 mg IV every hour as needed Low-dose Humalog sliding scale Viscous lidocaine 2%, apply to tongue ulcer, as needed Lorazepam 1 mg IV or p.o. every 4 hours as needed anxiety Nystatin swish and swallow 3 times daily, until finished antibiotics Tylenol 1000 mg IV every 6 hours as needed Zofran 4 mg IV or p.o. every 6 hours as needed Protonix 40 mg IV twice daily Zosyn 3.375 g IV every 6 hours, through approximately July 12 Vancomycin per pharmacy daily Natural tears eyedrops 4 times daily as needed Prednisone decreased to 20 mg p.o. daily Previous home Medications HYDROcodone/APAP 5/325MG [[place] 5/325Mg] 1 tab PO Q6HP PRN #20 tab 05/19/16 [Rx Confirmed 06/12/17 Last Taken 06/11/17 22:00] Naproxen (Pp) [Aleve (Pp)] 220 mg PO PRN PRN 06/08/17 [History Confirmed Last Taken 06/10/17] Medical - DS: Hosp Hospital course: Mr. Adiel Cardoso is a 77 year old F June 12, 2017: History of present illness: Ms. Adiel Cardoso is a 77 year old F who presents to the ED with ongoing complaints of abdominal pain. Patient awoke last Thursday with abdominal pain. She was also nauseated. She was seen in the emergency department due to ongoing symptoms on Thursday, 06/08. CT scan at that time showed some colonic thickening and wall edema without significant inflammatory changes. There was also diverticulosis. She had evidence of urinary tract infection and was started on Septra. Patient remained nauseated and was unable to take the Septra. She continued to have significant abdominal pain, up to 06/09. On the day following her ED visit , she was nauseated and was unable to keep anything down. She presented back to the emergency department, had Bactrim stopped and was changed over to ciprofloxacin. Neither the patient nor her family were aware that a new prescription of been generated and it was never picked up. On Thursday and she continued to have vomiting which was without blood. She continued to have significant abdominal pain up to "08/09". She presents back to the emergency department today because of ongoing abdominal pain, nausea and vomiting. With the onset of the pain a week ago, the pain was severe and was in the left lower quadrant, changing over to the right lower quadrant and becoming generalized as last week has progressed. She describes the quality of the pain is constant and aching with intermittent bouts of stabbing pain. Associated with nausea, vomiting without hematemesis. She has hydrocodone prescription for chronic back pain, that has helped her pain somewhat, though she has had some difficulty keeping medications down. She tried an oral Zofran, was able to keep one done yesterday, but not today. June 13 She is still complaining of significant abdominal pain, more so on the right side from the right upper and right lower quadrant. Tolerating clears, nausea has improved, no ecchymosis. She did have one small hard bowel movement, then to softer ones. She did receive bisacodyl rectally, also oral milk of magnesia and senna last evening. No fever, no chills. No significant dyspnea, has used 1 as needed nebulizer therapy. CT of the abdomen and pelvis was obtained due to ongoing pain. Spoke with radiology, films reviewed, she has dilated colon, ascending, transverse, descending with a transition point in the sigmoid where it decompresses. No pericolonic inflammatory changes, no mural thickening. Patient currently undergoing delayed images to see if there is passage of contrast. June 14 Still complaining of abdominal pain. Had some desaturation overnight, on oxygen. Received dose of furosemide earlier today. Still requiring regular Dilaudid today, though when I see her this morning the interval between when necessary doses has increased somewhat. Final results of CTAP yesterday without passage of contrast. I discussed the case with Dr. Eubanks last evening, he is seeing the patient today , plans to take to the operating room. Her white count was increased to 22,000 today. Ceftriaxone changed to Zosyn this morning. ... July 02: Hospital course: This patient was admitted with abdominal pain, and ultimately diagnosed with diverticulitis. She ended up going to the operating room, where she was found to have a perforated diverticulitis. She underwent exploratory laparotomy with colectomy, ileostomy with mucous fistula, colostomy. She then developed respiratory failure and Pseudomonas pneumonia. She was treated for short time with ventilator management, and then weaned to BiPAP. She was ultimately weaned off of the BiPAP. She is now stable from a respiratory standpoint, but continues in a severely weakened state. Nutrition is poor, as she has been really been unable to tolerate much in the way of oral nutrition. She is now on TPN to support her nutrition, and we are doing everything we can to encourage her to take in more calories by mouth. The patient also complained of a sore mouth after extubation. Initially we thought she had thrush, but then it was discovered that she also has a ulcer on her tongue. This seems to be responding to topical lidocaine for pain control. She also received chlorhexidine mouthwashes, followed by nystatin swish and swallow. Today, the patient is much brighter. She is awake and alert. She says she ate breakfast, and tolerated that well. She continues to have her chronic back pain which also translates into some abdominal pain, but says that settles down when she gets her medications. She does still note some leakage from the right ostomy site where the seal just is not perfect. Otherwise, she denies fever chills, chest pain or palpitations, shortness of breath, nausea or vomiting. Exam: She is sitting up in bed, awake and alert. She is very talkative today. Neck is supple without obvious lymphadenopathy or JVD. Cardiac exam shows regular rate and rhythm. Lungs are clear to auscultation. Abdomen: Bilateral ostomy bags are in place, both with output.. There is some leakage from the medial corner of the right ostomy bag. Abdomen appears nontender. Riggs is draining clear yellow urine. The stapled suture line looks fine, without discharge. Extremities: Show no significant edema. Neurologic exam: The patient appears quite a bit more energetic and upbeat today. A/P Narrative: 77-year-old female without GI illness (though in retrospect has had diverticulitis in past) presents with abdominal pain, nausea and vomiting. Also has urinary tract infection. Evolution of distal colonic obstruction, subsequently went to the operating room on 06/14, resection of sigmoid mass, a contained perforation of transverse colon and spontaneous rupture of right colon intraoperatively. #1. GI/infectious disease. -Acute diverticulitis. . Postop day # 18 , status post exploratory laparotomy, hemicolectomy with ileostomy, Clark's procedure with mucous fistula. both draining well Now Post-op day #16 from re-look and delayed closure. Plan: management as per surgery, -Advancing diet as tolerated. -She is doing quite well, and is tolerating more and more of an oral diet every day. She still is not meeting caloric needs, however, so will remain on TPN. -She had some leakage from [address] of the bags today,. Dr. Eubanks plans on having our wound care nurse refit her with a smaller ostomy bag. #2.-Pulmonary. -HCAP PNA: Pseudomonas levine sensitive, given new fever and rising wbc vancomycin was added back, pt stable for now.. Zosyn has been likely from the day of admit, but will continue for additional 1 week. to complete 14 days of zosyn after pseudomonas was noted. -I think we could recheck a chest x-ray, and if that looks clear, consider discontinuing antibiotics. -Acute respiratory failure : ARDS vs CHF Vs PNA Post extubation day 7. Breathing status is doing fine. BiPAP was discontinued. -asthma: Weaning prednisone. Stop duo nebs. He is scheduled plus as needed albuterol. #3. Nutrition. Malnutrition on TPN, will continue same for now, oral feeds as tolerated, calorie count noted , very poor oral intake.. -Patient's appetite seems to be improving for outside food, so Dr. Eubanks okayed that. Speech therapy notes she can tolerate regular textures now. #4. Hypokalemia / Hypomagnesemia. Resolved. #5. Anemia: Stable postop. #6. CODE STATUS, discussed with the patient at admission, is DNR #7. Prophylaxis: Protonix, SCD's, hep sq . Disposition: She continues to be very weak, so we will continue with aggressive physical and occupational therapies. We will discharge her from inpatient status today, and readmit her as a swing bed/rehab patient, to continue with occupational and physical therapies, and nutritional support. Today's visit took approximately 35 minutes, to review patient's test results, review plan of care with Dr. Eubanks as well as staff, interview and examine the patient, and write orders. 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 Colon obstruction with perforation. Respiratory failure Hospital-acquired pneumonia Malnutrition - Time Spent with Patient Total time spent providing and/or coordinating discharge services: Greater than 30 minutes Medical - DS: Exam - Constitutional Vitals: Vital Signs Temp Pulse Pulse Resp BP BP Pulse Ox 07/02/17 06:48 98.4 F 72 16 112/58 98 07/02/17 04:00 98.2 F 74 22 114/62 97 07/02/17 00:00 98.6 F 79 22 110/56 98 07/01/17 21:13 86 18 07/01/17 20:00 98.5 F 86 24 H 116/64 95 07/01/17 16:46 75 20 07/01/17 15:33 98.5 F 22 101/59 95 07/01/17 12:00 98 F 20 98/62 95 Intake and Output 07/01/17 07/02/17 07/02/17 21:59 05:59 13:59 Intake Total 170 / 170 250 / 250 Output Total 750 / 750 1175 / 1175 Balance -580 / -580 -925 / -925 Intake: IV 50 / 50 100 / 100 Zosyn 3.375 gm In Sodium 50 / 50 100 / 100 Chloride 0.9% 50 ml @ 100 mls/ hr IV Q6H KRISS Rx#:[id number] Oral 120 / 120 150 / 150 Output: Urine Catheter Amount 650 / 650 1175 / 1175 Stool 100 / 100 Other: Weight 139 lb Medical - DS: Data Labs on day of discharge: Labs from last 24 hours 07/02/17 07/02/17 07/02/17 08:15 04:00 04:00 WBC 9.0 RBC 3.56 L Hgb 9.5 L Hct 28.5 L MCV 80.0 MCH 26.6 MCHC 33.3 RDW 18.0 H Plt Count 330 MPV 8.7 Gran % 85.7 H Lymph % (Auto) 5.5 L Bucks % (Auto) 8.2 Eos % (Auto) 0.6 Baso % (Auto) 0 Gran # 7.7 Lymph # (Auto) 0.5 L B[place] # (Auto) 0.7 Eos # (Auto) 0.1 Baso # (Auto) 0 Sodium 135 Potassium 4.7 Chloride 101 Carbon Dioxide 22 Anion Gap 12.0 BUN 21 Creatinine 0.5 L GFR Calculation 95 Glucose 135 H Uric Acid 1.6 L Calcium 8.7 Phosphorus 3.5 Magnesium 2.2 Total Bilirubin 0.3 Direct Bilirubin < 0.2 GGT 70 H AST 9 ALT 10 Alkaline Phosphatase 63 Lactate Dehydrogenase 172 Total Protein 5.4 L Albumin 2.9 L Globulin 2.5 Albumin/Globulin Ratio 1.2 Triglycerides 129 Vancomycin Trough 7.0 Preliminary micro results at discharge 06/27/17 11:05 Blood Culture - Preliminary Blood 06/27/17 10:45 Blood Culture - Preliminary Blood 06/20/17 11:20 Blood Fungal Culture - Preliminary Blood June 27: Urine culture was negative. Chest x-ray: Impression: Persistent bilateral infiltrates and mild pulmonary vascular congestion. Right upper lobe nodular density Blood cultures are negative so far. June 26: ABG: Showed a pH of 7.51, CO2 of 34, PO2 79, O2 saturation 97%. June 21: Sputum culture grew both pseudomonas aeruginosa and Nellie albicans. June 14: Nasal MRSA screen is positive. Medical - DS: A/P - Patient/Caregiver Discharge Instructions Activity: as per physical therapy Diet: Regular Diet (Plus ongoing TPN until oral intake is adequate.) Additional Instructions: See discharge orders. See swing bed admit orders. - Follow up Plan Follow up with: Montana Mohamud MD [Primary Care Provider] - Disposition: [facility] Swing Bed Prognosis: Good Rehab Potential: Good I certify that the patient requires SNF services: Yes Overall status at discharge: patient is progressing back to baseline
[2017-07-02] MEDS: HYDROmorphone 2 MG/ML SYRINGE IV PRN (12:37)
[2017-07-02] MEDS ORDERED: ZOLPIDEM 10 MG TABLET PO PRN (13:58)
== END 2017-07-02 12:08 | disposition other institution (70) | DRG 329 ==
LOC: ED 12:20 → SUATTDRO 17:13 → MEDSUR 17:13 → ICU 06-14 18:51 → MEDSUR 06-30 13:35
PROVIDERS: ADMIT Internal Medicine; ATTEND Internal Medicine
PROC: [UNRECOGNIZED PROCEDURE] (2017-06-14 13:00)

== ENCOUNTER 2017-07-02 10:49 | Inpatient (IN) ==
[2017-07-02] MEDS ORDERED: ACETAMINOPHEN 325 MG TABLET PO PRN (16:31)
[2017-07-02] MEDS ORDERED: LIDOCAINE VISCOUS 2% 1 ML SOLUTION PO PRN (16:31)
[2017-07-02] MEDS ORDERED: DEXTROSE 50% 50 ML VIAL IV PRN (16:31)
[2017-07-02] MEDS ORDERED: LORazepam 2 MG/ML VIAL IV PRN (16:31)
[2017-07-02] MEDS ORDERED: 0.9 % SODIUM CHLORIDE 10 ML SYRINGE IV PRN (16:31)
[2017-07-02] MEDS ORDERED: POLYVINYL ALCOHOL OPHTH DROPS 15ML BOTTLE OD PRN (16:31)
[2017-07-02] MEDS ORDERED: SELENIUM 40 MCG/ML IV SCH (16:45)
[2017-07-02] MEDS ORDERED: VANCOMYCIN 500 MG VIAL IV SCH (16:45)
[2017-07-02] MEDS ORDERED: PIPERACILLIN SODIUM/TAZOBACTAM 3.375 GM VIAL IV SCH (16:45)
[2017-07-02] MEDS ORDERED: CALCIUM GLUCONATE 4.65 MEQ/10 ML VIAL IV SCH (16:45)
[2017-07-02] MEDS ORDERED: POTASSIUM CHLORIDE 20 MEQ/10 ML VIAL IV SCH (16:45)
[2017-07-02] MEDS ORDERED: MVI, ADULT NO.4 WITH VIT K 10 ML VIAL IV SCH (16:45)
[2017-07-02] MEDS ORDERED: SODIUM CHLORIDE 4 MEQ/ML IV SCH (16:45)
[2017-07-02] MEDS ORDERED: POTASSIUM PHOSPHATE 22 MEQ/5 ML VIAL IV SCH (16:45)
[2017-07-02] MEDS ORDERED: MAGNESIUM SULFATE 8.12 MEQ/2 ML VIAL IV SCH (16:45)
[2017-07-02] MEDS: FAT EMULSION 20% 250 ML in PREMIX 1 BAG IV SCH (16:55)
[2017-07-02] MEDS: HYDROcodone/APAP 5/325MG TABLET PO PRN ×2 (16:55→21:02)
[2017-07-02] MEDS: PANTOPRAZOLE 40 MG VIAL IV SCH (16:55)
[2017-07-02] MEDS: INSULIN LISPRO 1 UNIT/0.01 ML UNIT SQ SCH ×2 (17:57→23:08)
[2017-07-02] MEDS: PIPERACILLIN SODIUM/TAZOBACTAM 3.375 GM in DEXTROSE 5% IN WATER 50 ML IV SCH ×2 (18:05→23:12)
[2017-07-02] MEDS: HEPARIN 5,000 UNIT/ML VIAL SQ SCH ×2 (21:01→23:00)
[2017-07-02] MEDS: NYSTATIN 500,000 UNITS/5 ML ORAL.SUSP SSW SCH (21:01)
[2017-07-02] MEDS: HYDROmorphone 2 MG/ML SYRINGE IV PRN (22:53)
[2017-07-02] MEDS: 0.9 % SODIUM CHLORIDE 10 ML SYRINGE IV SCH ×2 (23:00)
[2017-07-03] MEDS ORDERED: MAGNESIUM SULFATE IV SCH (01:00)
[2017-07-03] MEDS ORDERED: [UNRECOGNIZED DRUG - OTHER] IV SCH (01:00)
[2017-07-03] MEDS ORDERED: CALCIUM GLUCONATE IV SCH (01:00)
[2017-07-03] MEDS ORDERED: SODIUM CHLORIDE IV SCH (01:00)
[2017-07-03] MEDS: INSULIN LISPRO 1 UNIT/0.01 ML UNIT SQ SCH ×3 (05:44→18:14)
[2017-07-03] MEDS: PIPERACILLIN SODIUM/TAZOBACTAM 3.375 GM in DEXTROSE 5% IN WATER 50 ML IV SCH ×4 (05:45→23:58)
[2017-07-03] MEDS: 0.9 % SODIUM CHLORIDE 10 ML SYRINGE IV SCH ×8 (06:38→20:05)
[2017-07-03] MEDS: PANTOPRAZOLE 40 MG VIAL IV SCH ×2 (06:58→16:46)
[2017-07-03] MEDS: predniSONE 20 MG TABLET PO SCH (06:59)
[2017-07-03] MEDS: HYDROmorphone 2 MG/ML SYRINGE IV PRN ×4 (06:59→20:38)
[2017-07-03 09:03] LABS: ALT/SGPT 10 U/l (0-40); Albumin/Globulin Ratio 1.2 (1.0-2.3); Alkaline Phosphatase 68 U/L (39-117); Bilirubin,Direct < 0.2 mg/dL (0.0-0.3); Blood Urea Nitrogen 21 mg/dl (8-23); Gamma Glutamyl Transpeptidase 75 U/L (5-36); Magnesium 2.2 mg/dL (1.6-2.5); Uric Acid 1.7 mg/dL (2.5-8.0)
[2017-07-03] MEDS: HEPARIN 5,000 UNIT/ML VIAL SQ SCH ×4 (10:51→20:04)
[2017-07-03] MEDS: NYSTATIN 500,000 UNITS/5 ML ORAL.SUSP SSW SCH ×3 (11:13→20:04)
[2017-07-03] MEDS: VANCOMYCIN 1,500 MG in 0.9 % SODIUM CHLORIDE 500 ML IV SCH (11:36)
--- NOTE | 2017-07-03 13:03 | Internal Med History&Physical ---
Medical - H&P: HPI Patient information: Note initiated : 07/03/17 at 1:03 pm Service Date, if different from initiated Date: [] Patient: Caroline Bellamy a 77 y/o F admitted on 07/02/17 for Open sigmoidectomy. Chief Complaint: [] History of present illness: Ms. Adiel Cardoso is a 77 year old female who presented in mid May with abdominal pain. She was ultimately diagnosed with perforated diverticulitis, and underwent exploratory laparotomy, a hemicolectomy with ileostomy, Clark's procedure with mucous fistula. She had a rough postop course, and developed respiratory failure, requiring ventilator management, and then BiPAP management. She was treated with Zosyn for pneumonia as well as for intra- abdominal infection. Cultures grew Pseudomonas, which was sensitive to the Zosyn. White blood cell count began rising later, so vancomycin was added also. The patient has had trouble getting her appetite back, and was considered quite malnourished. TPN was started. She is now slowly starting to tolerate food better. She is much too weak to return home and perform right usual activities , so has been admitted to swing bed status for rehab and strengthening prior to returning home. Today, she is feeling stronger and says her appetite is better. She is in good spirits. She does note that she has had a little bit of a cough since yesterday, but feels that her room was too cold last night. She also had a headache and slight dizziness last night after receiving some IV medication, but says that has resolved. Her abdomen still feels a little tight since her surgery, but she denies pain, nausea or vomiting, diarrhea. Otherwise she denies fever chills, current headache, new eye or ear symptoms, sore throat, chest pain or palpitations, shortness of breath or wheezing, abdominal pain, nausea or vomiting, dysuria. Medical History Spasm of paraspinal muscle (Acute) Muscle spasm of back, arthritis Thoracic back pain (Acute) Abdominal pain (Acute) Dilated bile duct (Acute) Pulmonary fibrosis, asthma Surgical history: s/p Appendectomy s/p Cholecystectomy s/p BTL Recent discharge medications: Saline flush for IV site every 8 hours as needed Accu-Cheks every 6 hours Tylenol 650 mg every 6 hours as needed Albuterol nebulizer every 2 hours as needed TPN as per pharmacy Diflucan 100 mg daily, this can be discontinued. Heparin 5000 units subcu every 12 hours until ambulatory Dilaudid 0.5 mg IV every hour as needed Low-dose Humalog sliding scale Viscous lidocaine 2%, apply to tongue ulcer, as needed Lorazepam 1 mg IV or p.o. every 4 hours as needed anxiety Nystatin swish and swallow 3 times daily, until finished antibiotics Tylenol 1000 mg IV every 6 hours as needed Zofran 4 mg IV or p.o. every 6 hours as needed Protonix 40 mg IV twice daily Zosyn 3.375 g IV every 6 hours, through approximately July 12 Vancomycin per pharmacy daily Natural tears eyedrops 4 times daily as needed Prednisone decreased to 20 mg p.o. daily Previous home Medications: HYDROcodone/APAP 5/325MG [[place] 5/325Mg] 1 tab PO Q6HP PRN #20 tab 05/19/16 [Rx Confirmed 06/12/17 Last Taken 06/11/17 22:00] Naproxen (Pp) [Aleve (Pp)] 220 mg PO PRN PRN 06/08/17 [History Confirmed Last Taken 06/10/17] Social History The patient lives alone. She has never been a smoker. She does not use drugs, and rarely uses alcohol. She has many friends from [place]. Pertinent family history: Mother at advanced age of a blood disorder (perhaps leukemia) Father of lung cancer, was a smoker Medical - H&P: Meds Home Medications Medication Instructions Recorded Confirmed Type HYDROcodone/APAP 5/325MG [[place] 1 tab PO Q6HP PRN #20 tab 05/19/16 07/02/17 Rx 5/325Mg] 0.9 % Sodium Chloride [Saline 10 ml IV Q8 syringe 07/02/17 07/02/17 Rx Flush] 0.9 % Sodium Chloride [Saline 10 ml IV UD PRN syringe 07/02/17 07/02/17 Rx Flush] Accu-Chek 1 each FS Q6 strip 07/02/17 07/02/17 Rx Acetaminophen [Tylenol] 650 mg PO Q6HP PRN tablet 07/02/17 07/02/17 Rx Albuterol Sulfate [Ventolin] 2.5 mg NEB Q2HP PRN ampul.neb 07/02/17 07/02/17 Rx Calcium Gluconate 5 meq IV Q21H vial 07/02/17 07/02/17 Rx Dextrose 50% 25 ml IV UD PRN vial 07/02/17 07/02/17 Rx Fat Emulsion 20% [Intralipid 20%] 250 ml IV DAILY@1600 bag 07/02/17 07/02/17 Rx HYDROmorphone [Dilaudid] 0.5 mg IV Q1HP PRN syringe 07/02/17 07/02/17 Rx Heparin 5,000 unit SQ Q12 vial 07/02/17 07/02/17 Rx Insulin Lispro [Humalog] See Protocol SQ Q6 #1 unit 07/02/17 07/02/17 Rx LORazepam [Ativan] 1 mg IV Q4-6HP PRN vial 07/02/17 07/02/17 Rx Lidocaine Viscous 2% 5 ml PO Q4HP PRN solution 07/02/17 07/02/17 Rx Magnesium Sulfate 8.12 meq IV Q21H vial 07/02/17 07/02/17 Rx Mvi, Adult No.4 with Vit K 10 ml IV Q21H vial 07/02/17 07/02/17 Rx [Infuvite Adult] Nystatin 500,000 units SSW TID oral.susp 07/02/17 07/02/17 Rx Ondansetron [Zofran] 4 mg IV Q6HP PRN vial 07/02/17 07/02/17 Rx Pantoprazole [Protonix] 40 mg IV BIDAC vial 07/02/17 07/02/17 Rx Piperacillin Sodium/Tazobactam 3.375 gm IV Q6H vial 07/02/17 07/02/17 Rx [Zosyn] Polyvinyl Alcohol Ophth Drops 1 gtt OD QIDP PRN bottle 07/02/17 07/02/17 Rx [Artificial Tears Ophth Drops] Potassium Chloride 30 meq IV Q21H vial 07/02/17 07/02/17 Rx Potassium Phosphate 40 meq IV Q21H vial 07/02/17 07/02/17 Rx Selenium 60 mcg IV Q21H ml 07/02/17 07/02/17 Rx Sodium Chloride 50 meq IV Q21H ml 07/02/17 07/02/17 Rx Vancomycin 1,500 mg IV Q24H vial 07/02/17 07/02/17 Rx predniSONE [Prednisone] 20 mg PO QAC tablet 07/02/17 07/02/17 Rx Allergies Allergy/AdvReac Type Severity Reaction Status Date / Time No Known Drug Allergies Allergy Verified 06/12/17 11:47 Medical - H&P: Exam - Constitutional Vitals: Temp Pulse Resp BP Pulse Ox 98.4 F 80 18 126/72 98 07/03/17 08:00 07/02/17 20:00 07/03/17 08:00 07/03/17 08:00 07/03/17 08:00 On exam, she is a well-developed well-nourished elderly female in no acute distress. She is in good spirits today. Her appetite is improved. She had lots of visitors today. Head: Normocephalic, atraumatic. Eyes: PERRLA, EOMI, anicteric. Ears: TMs and canals are clear. Pharynx: Pharynx is clear. Mucosa appears normal. Neck: Supple, without lymphadenopathy, JVD, thyromegaly, bruits. Cardiac exam: Shows regular rate and rhythm with very soft systolic murmur noted primarily at the left lower sternal border.. No rubs, gallops are noted. Lungs: Clear to auscultation, without rales, rhonchi, wheezes. Abdomen: Is status post recent exploratory laparotomy. She has an ileostomy and a Clark's procedure with mucous fistula. Both ostomies look healthy, and have drainage and gas in the bags. I do not see significant leakage from the right back today, although the patient says that still happens occasionally. Midline incision is stapled, and incision is clean and dry, without any obvious drainage or signs of infection. Abdomen is otherwise soft, with active bowel sounds. Extremities: Show no cyanosis, clubbing, edema. Neurologic exam: Patient is alert and oriented, calm and cooperative. Cranial nerves are grossly intact. Motor exam is grossly nonfocal. Medical - H&P: Reslt - Labs CBC & Chem 7: 07/03/17 07:18 Labs: BMP 07/03/17 07:18 Sodium 135 Potassium 4.3 Chloride 102 Carbon Dioxide 21 L BUN 21 Creatinine 0.6 Glucose 112 H Calcium 8.7 Liver Function 07/03/17 Range/Units 07:18 Total Bilirubin 0.4 (0.0-1.0) mg/dL Direct Bilirubin < 0.2 (0.0-0.3) mg/dL GGT 75 H (5-36) U/L AST 11 (0-37) U/l ALT 10 (0-40) U/l Alkaline Phosphatase 68 (39-117) U/L Albumin 3.0 L (3.2-5.2) gm/dL July 02: CBC: White blood cell count 9000, hemoglobin 9.5, hematocrit 28.5, RDW 18, platelets 330,000. June 27: Urine culture was negative. Chest x-ray: Impression: Persistent bilateral infiltrates and mild pulmonary vascular congestion. Right upper lobe nodular density Blood cultures are negative so far. June 26: ABG: Showed a pH of 7.51, CO2 of 34, PO2 79, O2 saturation 97%. June 21: Sputum culture grew both pseudomonas aeruginosa and Nellie albicans. June 14: Nasal MRSA screen is positive. Medical - H&P: A/P - Narrative A/P Narrative: A/P Narrative: 77-year-old female went to the operating room on 06/14, resection of sigmoid mass, a contained perforation of transverse colon and spontaneous rupture of right colon intraoperatively. #1. GI/infectious disease. status post exploratory laparotomy, hemicolectomy with ileostomy, Clark's procedure with mucous fistula. both draining well -Advancing diet as tolerated. -She is doing quite well, and is tolerating more and more of an oral diet every day. She still is not meeting caloric needs, however, so will remain on TPN. #2.-Pulmonary. -HCAP PNA: Pseudomonas levine sensitive, given new fever and rising wbc vancomycin was added back, pt stable for now.. Zosyn has been likely from the day of admit, but will continue for additional 1 week. to complete 14 days of zosyn after pseudomonas was noted. -I think we could recheck a chest x-ray, and if that looks clear, consider discontinuing antibiotics. -Recent acute respiratory failure : ARDS vs CHF Vs PNA Patient is now doing well, without supplemental oxygen. -I think we could recheck a chest x-ray, and if that looks clear, consider discontinuing antibiotics. -asthma: Weaning prednisone. Stop duo nebs. Scheduled plus as needed albuterol nebulizer treatments. Patient is complaining of a cough, I will add Robitussin with codeine. #3. Nutrition. Malnutrition- on TPN, will continue same for now, oral feeds as tolerated, calorie count noted , very poor oral intake.. -Patient's appetite seems to be improving for outside food, so Dr. Eubanks okayed that. Speech therapy notes she can tolerate regular textures now. #4. Hypokalemia / Hypomagnesemia. Resolved. #5. Anemia: Stable postop. #6. CODE STATUS, discussed with the patient , is DNR #7. Prophylaxis: Protonix, SCD's, hep sq . 8. Patient developed a tongue ulcer after intubation, so is using viscous lidocaine topically as needed. She is also on nystatin swish and swallow, and she may have mild thrush. Today's visit took approximately 40 minutes, to review her records and recent test results, interview and examine her, and write orders. Medical - H&P: Qual - VTE Deep Vein Thrombosis/Pulmonary Embolism Present on Admission: No
[2017-07-03] MEDS ORDERED: FAT EMULSION 20% 250 ML BAG IV SCH (16:00)
[2017-07-03] MEDS: FAT EMULSION 20% 250 ML in PREMIX 1 BAG IV SCH (16:30)
[2017-07-03] MEDS ORDERED: guaiFENesin/CODEINE 10 ML UDC PO PRN (16:43)
[2017-07-03] MEDS: [UNRECOGNIZED DRUG - OTHER] IV SCH (22:36)
[2017-07-03] MEDS: MAGNESIUM SULFATE IV SCH (22:36)
[2017-07-03] MEDS: CALCIUM GLUCONATE IV SCH (22:36)
[2017-07-03] MEDS: SODIUM CHLORIDE IV SCH (22:36)
[2017-07-04] MEDS: INSULIN LISPRO 1 UNIT/0.01 ML UNIT SQ SCH ×5 (00:01→23:54)
[2017-07-04] MEDS: HYDROmorphone 2 MG/ML SYRINGE IV PRN ×2 (00:39→06:16)
[2017-07-04] MEDS: PIPERACILLIN SODIUM/TAZOBACTAM 3.375 GM in DEXTROSE 5% IN WATER 50 ML IV SCH ×4 (05:50→23:54)
[2017-07-04 05:52] LABS: Basophils # (Auto) 0 K/mcL (0.0-0.3); Basophils % (Auto) 0.3 % (0.0-2.0); Eosinophils # (Auto) 0.1 K/mcL (0.0-0.7); Eosinophils % (Auto) 1.5 % (0.0-7.0); Granulocytes % (Auto) 83.4 % (38.0-78.0); Lymphocytes # (Auto) 0.7 K/mcL (1.5-4.8); Lymphocytes % (Auto) 6.8 % (15.5-49.0); Mean Cell Volume 81.9 fL (80.0-100.0); Mean Corpuscular HGB Conc 33.1 g/dL (31.0-36.0); Mean Corpuscular Hemoglobin 27.1 pg (26.0-34.0); Monocytes # (Auto) 0.8 K/mcL (0.1-0.9); Platelet Count 274 K/mcL (140-440); RBC 3.64 M/mcL (4.00-5.20); Red Cell Distribution Width 19.3 % (11.5-14.5)
[2017-07-04] MEDS: 0.9 % SODIUM CHLORIDE 10 ML SYRINGE IV SCH ×4 (06:05→20:01)
[2017-07-04] MEDS: PANTOPRAZOLE 40 MG VIAL IV SCH ×2 (10:40→18:32)
[2017-07-04] MEDS: NYSTATIN 500,000 UNITS/5 ML ORAL.SUSP SSW SCH ×3 (10:41→20:00)
[2017-07-04] MEDS: predniSONE 20 MG TABLET PO SCH (10:41)
[2017-07-04] MEDS: HEPARIN 5,000 UNIT/ML VIAL SQ SCH ×3 (10:41→20:00)
[2017-07-04] MEDS: HYDROcodone/APAP 5/325MG TABLET PO PRN ×3 (10:41→20:00)
[2017-07-04] MEDS: VANCOMYCIN 1,500 MG in 0.9 % SODIUM CHLORIDE 500 ML IV SCH (11:55)
[2017-07-04] MEDS: FAT EMULSION 20% 250 ML in PREMIX 1 BAG IV SCH (16:48)
[2017-07-04] MEDS: CALCIUM GLUCONATE IV SCH (20:21)
[2017-07-04] MEDS: SODIUM CHLORIDE IV SCH (20:21)
[2017-07-04] MEDS: MAGNESIUM SULFATE IV SCH (20:21)
[2017-07-04] MEDS: [UNRECOGNIZED DRUG - OTHER] IV SCH (20:21)
[2017-07-04] MEDS: ALBUTEROL SULFATE 2.5 MG/3 ML NEBULIZER NEB PRN (21:28)
[2017-07-05] MEDS: HYDROcodone/APAP 5/325MG TABLET PO PRN ×3 (04:25→20:39)
[2017-07-05] MEDS: INSULIN LISPRO 1 UNIT/0.01 ML UNIT SQ SCH ×3 (05:35→18:47)
[2017-07-05] MEDS: PIPERACILLIN SODIUM/TAZOBACTAM 3.375 GM in DEXTROSE 5% IN WATER 50 ML IV SCH ×3 (05:35→17:59)
[2017-07-05 06:54] LABS: ALT/SGPT 11 U/l (0-40); Albumin 3.1 gm/dL (3.2-5.2); Albumin/Globulin Ratio 1.2 (1.0-2.3); Alkaline Phosphatase 67 U/L (39-117); Bilirubin,Direct < 0.2 mg/dL (0.0-0.3); Blood Urea Nitrogen 20 mg/dl (8-23); Gamma Glutamyl Transpeptidase 75 U/L (5-36); Uric Acid 2.1 mg/dL (2.5-8.0)
[2017-07-05] MEDS: PANTOPRAZOLE 40 MG VIAL IV SCH ×2 (09:01→16:45)
[2017-07-05] MEDS: predniSONE 20 MG TABLET PO SCH (09:01)
[2017-07-05] MEDS: HEPARIN 5,000 UNIT/ML VIAL SQ SCH ×2 (09:02→20:40)
[2017-07-05] MEDS: NYSTATIN 500,000 UNITS/5 ML ORAL.SUSP SSW SCH ×3 (09:02→20:40)
[2017-07-05] MEDS: 0.9 % SODIUM CHLORIDE 10 ML SYRINGE IV SCH ×3 (09:02→20:40)
[2017-07-05] MEDS: VANCOMYCIN 1,500 MG in 0.9 % SODIUM CHLORIDE 500 ML IV SCH (11:34)
--- NOTE | 2017-07-05 11:46 | General Surgery Progress Note ---
Subjective Patient reports: feels better, pain is less, tolerating a regular diet, flatus, bowel movement, afebrile Narrative: Note initiated : 07/05/17 at 11:44 am Service Date, if different from initiated Date: [] Patient: Caroline Bellamy 77 y/o F admitted on 07/02/17 for Open sigmoidectomy. Chief Complaint: [Patient is doing much better overall. She feels much stronger and her p.o. intake is gradually improving. She states that the soreness of her mouth, especially her tongue, is much better and her p.o. intake is improving because of that. She still does not have a good appetite. She denies any shortness of breath and does not have a significant cough or congestion. She denies chest pain. Her abdomen is benign except for some serous fluid at the base which is related to her mild anasarca. Both stomas are healthy and functioning appropriately. Her peripheral edema is significantly improved.] Objective Temp Pulse Resp BP Pulse Ox 98.1 F 76 20 110/66 97 07/04/17 20:00 07/04/17 21:29 07/04/17 21:29 07/04/17 20:00 07/04/17 20:00 - Additional Data Intake & Output - Last 24 hours: Intake & Output 07/03/17 07/04/17 07/05/17 07/06/17 06:59 06:59 05:59 05:59 Intake Total Output Total Balance Weight - General physical appearance no distress - Eyes PERRL - ENT nasal discharge - Neck no venous distension - Respiratory normal expansion, normal respiratory effort, clear to auscultation - Cardiovascular Cardiovascular exam: Present: normal rate and rhythm, RRR, +S1, +S2. Absent: JVD - Abdomen soft, non tender, bowel sounds (Good active bowel sounds without distention; incision is unremarkable except for modest amount of serous drainage at the base in the most dependent portion; stomas appear to be healing appropriately and functioning) - Integumentary no rash, no growths, no abnormal pigmentation - Neurologic normal coordination, normal sensation - Musculoskeletal other (Unsteady gait but improved over the past 2 days) - Psychiatric oriented to time, oriented to person, oriented to place, speech is normal, memory intact - Labs 07/04/17 04:00 07/05/17 04:20 Diabetes panel 07/05/17 Range/Units 04:20 Sodium 135 (133-145) mmol/L Potassium 4.1 (3.3-5.1) mmol/L Chloride 105 (96-108) mmol/L Carbon Dioxide 20 L (22-30) mmol/L BUN 20 (8-23) mg/dl Creatinine 0.4 L (0.6-1.1) mg/dl Glucose 91 (70-105) mg/dL Calcium 8.6 (8.6-10.4) mg/dl AST 11 (0-37) U/l ALT 11 (0-40) U/l Alkaline Phosphatase 67 (39-117) U/L Total Protein 5.6 L (5.9-8.4) gm/dL Albumin 3.1 L (3.2-5.2) gm/dL Triglycerides 147 (<150) mg/dl Calcium panel 07/05/17 Range/Units 04:20 Calcium 8.6 (8.6-10.4) mg/dl Phosphorus 3.1 (2.7-4.5) mg/dL Albumin 3.1 L (3.2-5.2) gm/dL Pituitary panel 07/05/17 Range/Units 04:20 Sodium 135 (133-145) mmol/L Potassium 4.1 (3.3-5.1) mmol/L Chloride 105 (96-108) mmol/L Carbon Dioxide 20 L (22-30) mmol/L BUN 20 (8-23) mg/dl Creatinine 0.4 L (0.6-1.1) mg/dl Glucose 91 (70-105) mg/dL Calcium 8.6 (8.6-10.4) mg/dl Adrenal panel 07/05/17 Range/Units 04:20 Sodium 135 (133-145) mmol/L Potassium 4.1 (3.3-5.1) mmol/L Chloride 105 (96-108) mmol/L Carbon Dioxide 20 L (22-30) mmol/L BUN 20 (8-23) mg/dl Creatinine 0.4 L (0.6-1.1) mg/dl Glucose 91 (70-105) mg/dL Calcium 8.6 (8.6-10.4) mg/dl Total Bilirubin 0.3 (0.0-1.0) mg/dL AST 11 (0-37) U/l ALT 11 (0-40) U/l Alkaline Phosphatase 67 (39-117) U/L Total Protein 5.6 L (5.9-8.4) gm/dL Albumin 3.1 L (3.2-5.2) gm/dL Assessment and Plan (1) Status post colectomy Status: Acute Assessment and plan: Stable stable postoperative course Current Visit: Yes (2) Pneumonitis Status: Acute Assessment and plan: Clinically resolved Current Visit: Yes (3) Protein-calorie malnutrition, moderate Status: Acute Assessment and plan: Gradually reduce TPN to see if p.o. intake will increase Check pre-albumin level Add protein supplement to diet Current Visit: Yes - Time Spent With Patient Total time spent is greater than 50% in coordination of care (as documented) at patient's floor/unit and/or counseling patient:
[2017-07-05] MEDS ORDERED: TPN PER PHARMACY IV ONE (12:38)
[2017-07-05] MEDS ORDERED: TPN PER PHARMACY IV SCH (12:38)
[2017-07-05] MEDS ORDERED: CALCIUM GLUCONATE IV SCH ×2 (13:00→16:00)
[2017-07-05] MEDS ORDERED: [UNRECOGNIZED DRUG - OTHER] IV SCH ×2 (13:00→16:00)
[2017-07-05] MEDS ORDERED: MAGNESIUM SULFATE IV SCH ×2 (13:00→16:00)
[2017-07-05] MEDS ORDERED: SODIUM CHLORIDE IV SCH ×2 (13:00→16:00)
[2017-07-05] MEDS: FAT EMULSION 20% 250 ML in PREMIX 1 BAG IV SCH (16:35)
[2017-07-05] MEDS: ZOLPIDEM 5 MG TABLET PO PRN (22:18)
[2017-07-06] MEDS: PIPERACILLIN SODIUM/TAZOBACTAM 3.375 GM in DEXTROSE 5% IN WATER 50 ML IV SCH ×4 (00:16→18:37)
[2017-07-06] MEDS: INSULIN LISPRO 1 UNIT/0.01 ML UNIT SQ SCH ×4 (00:18→18:38)
[2017-07-06] MEDS: ALBUTEROL SULFATE 2.5 MG/3 ML NEBULIZER NEB PRN (01:15)
[2017-07-06] MEDS: 0.9 % SODIUM CHLORIDE 10 ML SYRINGE IV SCH ×3 (06:02→21:06)
[2017-07-06] MEDS: PANTOPRAZOLE 40 MG VIAL IV SCH ×2 (08:06→17:08)
[2017-07-06] MEDS: HYDROcodone/APAP 5/325MG TABLET PO PRN ×2 (08:08→21:05)
[2017-07-06] MEDS: HEPARIN 5,000 UNIT/ML VIAL SQ SCH ×2 (09:25→21:05)
[2017-07-06] MEDS: VANCOMYCIN 1,500 MG in 0.9 % SODIUM CHLORIDE 500 ML IV SCH (09:25)
[2017-07-06] MEDS: NYSTATIN 500,000 UNITS/5 ML ORAL.SUSP SSW SCH ×3 (09:26→21:06)
[2017-07-06] MEDS: predniSONE 20 MG TABLET PO SCH (09:26)
--- NOTE | 2017-07-06 10:48 | General Surgery Progress Note ---
Subjective Patient reports: feels better, pain is less, tolerating a regular diet, flatus, bowel movement, afebrile Narrative: Note initiated : 07/06/17 at 10:46 am Service Date, if different from initiated Date: [] Patient: Caroline Bellamy 77 y/o F admitted on 07/02/17 for Open sigmoidectomy. Chief Complaint: [Patient is doing better. She appears to be much stronger today. Her p.o. intake is improving. She is ambulating independently with her walker. She has no complaint of chest pain, shortness of breath, or major abdominal pain. Her stomas are working appropriately. She still has some drainage in the dependent portion of her incision but the incision otherwise looks okay. Her TPN is being gradually withdrawn and should be discontinued by tomorrow.] Objective Temp Pulse Resp BP Pulse Ox 98 F 80 30 H 110/58 95 07/06/17 06:27 07/06/17 06:59 07/06/17 06:59 07/06/17 06:27 07/06/17 06:59 - Additional Data Intake & Output - Last 24 hours: Intake & Output 07/04/17 07/05/17 07/06/17 07/07/17 06:59 05:59 05:59 05:59 Intake Total 1390 / 1390 Output Total 1375 / 1375 225 / 225 Balance -225 / -225 Weight 130 lb - General physical appearance no distress, chronically ill - Eyes PERRL - ENT no congestion - Neck no venous distension - Respiratory normal respiratory effort, clear to auscultation - Cardiovascular Cardiovascular exam: Present: normal rate and rhythm, RRR, +S1, +S2. Absent: gallop, JVD - Abdomen soft, non tender, bowel sounds (Abdomen is benign and soft with good active bowel sounds. Incision and stomas look good) - Integumentary no rash, no growths, no abnormal pigmentation - Neurologic normal coordination, normal sensation - Musculoskeletal normal posture - Psychiatric oriented to time, oriented to person, oriented to place, speech is normal, memory intact - Labs 07/04/17 04:00 07/05/17 04:20 Assessment and Plan (1) Status post colectomy Status: Acute Assessment and plan: Stable stable postoperative course General strength is improving ;p.o. intake is also improving Current Visit: Yes (2) Pneumonitis Status: Acute Assessment and plan: Clinically resolved Current Visit: Yes (3) Protein-calorie malnutrition, moderate Status: Acute Assessment and plan: Gradually reduce TPN to see if p.o. intake will increase Check pre-albumin level Add protein supplement to diet Current Visit: Yes - Time Spent With Patient Total time spent is greater than 50% in coordination of care (as documented) at patient's floor/unit and/or counseling patient:
--- NOTE | 2017-07-06 11:28 | XRay Report ---
CLINICAL INFORMATION: Follow-up pneumonia TECHNIQUE: AP portable, semiupright chest x-ray COMPARISON: Previous chest x-rays dated 06/27/2017, 06/26/2017, 06/24/2017, 06/23/2017 FINDINGS: No change in right central venous catheter position. Bibasilar infiltrates are improved although not completely resolved. The right hilar region is prominent, unchanged. Continued follow-up recommended. Upright PA and lateral chest x-ray recommended when clinically appropriate. Heart size and vascularity are within normal limits. No pulmonary edema or pulmonary congestion. IMPRESSION: 1. Bibasilar infiltrates are improved as above. 2. Right hilum is prominent, unchanged. Follow-up PA and lateral chest x-ray recommended when clinically appropriate. Interpreted and Authenticated by: Valentin Alanis 07/06/17
[2017-07-06] MEDS ORDERED: CALCIUM GLUCONATE IV SCH (16:00)
[2017-07-06] MEDS ORDERED: SODIUM CHLORIDE IV SCH (16:00)
[2017-07-06] MEDS ORDERED: MAGNESIUM SULFATE IV SCH (16:00)
[2017-07-06] MEDS ORDERED: [UNRECOGNIZED DRUG - OTHER] IV SCH (16:00)
[2017-07-06] MEDS: FAT EMULSION 20% 250 ML in PREMIX 1 BAG IV SCH (16:58)
[2017-07-06] MEDS: ZOLPIDEM 5 MG TABLET PO PRN (21:05)
[2017-07-07] MEDS: PIPERACILLIN SODIUM/TAZOBACTAM 3.375 GM in DEXTROSE 5% IN WATER 50 ML IV SCH ×3 (00:24→13:22)
[2017-07-07] MEDS: INSULIN LISPRO 1 UNIT/0.01 ML UNIT SQ SCH ×4 (00:27→18:14)
[2017-07-07] MEDS: 0.9 % SODIUM CHLORIDE 10 ML SYRINGE IV SCH ×3 (06:31→20:38)
[2017-07-07 06:38] LABS: Basophils # (Auto) 0 K/mcL (0.0-0.3); Basophils % (Auto) 0.1 % (0.0-2.0); Eosinophils # (Auto) 0.2 K/mcL (0.0-0.7); Eosinophils % (Auto) 2.8 % (0.0-7.0); Granulocytes % (Auto) 80.8 % (38.0-78.0); Lymphocytes # (Auto) 0.6 K/mcL (1.5-4.8); Lymphocytes % (Auto) 8.7 % (15.5-49.0); Mean Cell Volume 81.9 fL (80.0-100.0); Mean Corpuscular HGB Conc 33.1 g/dL (31.0-36.0); Mean Corpuscular Hemoglobin 27.1 pg (26.0-34.0); Monocytes # (Auto) 0.5 K/mcL (0.1-0.9); Monocytes % (Auto) 7.6 % (1.0-12.0); Platelet Count 206 K/mcL (140-440); RBC 3.53 M/mcL (4.00-5.20); Red Cell Distribution Width 19.2 % (11.5-14.5)
[2017-07-07 07:14] LABS: ALT/SGPT 14 U/l (0-40); Albumin 2.9 gm/dL (3.2-5.2); Albumin/Globulin Ratio 1.2 (1.0-2.3); Alkaline Phosphatase 64 U/L (39-117); Bilirubin,Direct < 0.2 mg/dL (0.0-0.3); Blood Urea Nitrogen 18 mg/dl (8-23); Gamma Glutamyl Transpeptidase 66 U/L (5-36); Magnesium 1.9 mg/dL (1.6-2.5); Uric Acid 2.5 mg/dL (2.5-8.0)
[2017-07-07] MEDS: PANTOPRAZOLE 40 MG VIAL IV SCH (08:02)
[2017-07-07] MEDS: predniSONE 20 MG TABLET PO SCH (08:04)
[2017-07-07] MEDS: NYSTATIN 500,000 UNITS/5 ML ORAL.SUSP SSW SCH ×3 (09:51→20:33)
[2017-07-07] MEDS: HEPARIN 5,000 UNIT/ML VIAL SQ SCH ×2 (09:55→20:36)
[2017-07-07] MEDS ORDERED: VANCOMYCIN 500 MG VIAL ONE (11:10)
[2017-07-07] MEDS: VANCOMYCIN 1,500 MG in 0.9 % SODIUM CHLORIDE 500 ML IV SCH (11:27)
[2017-07-07] MEDS: HYDROcodone/APAP 5/325MG TABLET PO PRN (11:59)
--- NOTE | 2017-07-07 12:15 | General Surgery Progress Note ---
Subjective Patient reports: feels better, pain is less, tolerating a regular diet, flatus, bowel movement, afebrile Narrative: Note initiated : 07/07/17 at 12:13 pm Service Date, if different from initiated Date: [] Patient: Caroline Bellamy 77 y/o F admitted on 07/02/17 for Open sigmoidectomy. Chief Complaint: [Patient is stable and gradually improving. She is very alert and is becoming more independent. According to the physical therapy notes she still needs active physical therapy to become stable enough for independent care at home. Her p.o. intake increases each day. TPN will be discontinued today but her PICC line will be maintained. She will be switched to oral medications except for her IV antibiotics] Objective Temp Pulse Resp BP Pulse Ox 98.7 F 82 22 102/50 97 07/07/17 11:32 07/07/17 11:32 07/07/17 11:32 07/07/17 11:32 07/07/17 11:32 - Additional Data Intake & Output - Last 24 hours: Intake & Output 07/05/17 07/06/17 07/07/17 07/08/17 05:59 05:59 05:59 05:59 Intake Total 1390 / 1390 2000 / 2000 200 / 200 Output Total 1375 / 1375 1050 / 1050 400 / 400 Balance 950 / 950 -200 / -200 Weight 130 lb 132 lb 8 oz - General physical appearance no distress, other ( Mild mid abdominal pain) - Neck no venous distension - Respiratory normal expansion, normal respiratory effort, clear to auscultation - Cardiovascular Cardiovascular exam: Present: irregular rhythm, +S1, +S2. Absent: JVD - Abdomen soft, tender (Mild tenderness in mid abdomen but otherwise unremarkable; stomas look good) - Integumentary no rash, no growths, no abnormal pigmentation - Neurologic normal coordination, normal sensation - Musculoskeletal normal posture - Psychiatric oriented to time, oriented to person, oriented to place, speech is normal, memory intact - Labs 07/07/17 05:00 07/07/17 05:00 Diabetes panel 07/07/17 Range/Units 05:00 Sodium 138 (133-145) mmol/L Potassium 4.1 (3.3-5.1) mmol/L Chloride 105 (96-108) mmol/L Carbon Dioxide 22 (22-30) mmol/L BUN 18 (8-23) mg/dl Creatinine 0.5 L (0.6-1.1) mg/dl Glucose 107 H (70-105) mg/dL Calcium 8.7 (8.6-10.4) mg/dl AST 13 (0-37) U/l ALT 14 (0-40) U/l Alkaline Phosphatase 64 (39-117) U/L Total Protein 5.4 L (5.9-8.4) gm/dL Albumin 2.9 L (3.2-5.2) gm/dL Triglycerides 136 (<150) mg/dl Calcium panel 07/07/17 Range/Units 05:00 Calcium 8.7 (8.6-10.4) mg/dl Phosphorus 3.3 (2.7-4.5) mg/dL Albumin 2.9 L (3.2-5.2) gm/dL Pituitary panel 07/07/17 Range/Units 05:00 Sodium 138 (133-145) mmol/L Potassium 4.1 (3.3-5.1) mmol/L Chloride 105 (96-108) mmol/L Carbon Dioxide 22 (22-30) mmol/L BUN 18 (8-23) mg/dl Creatinine 0.5 L (0.6-1.1) mg/dl Glucose 107 H (70-105) mg/dL Calcium 8.7 (8.6-10.4) mg/dl Adrenal panel 07/07/17 Range/Units 05:00 Sodium 138 (133-145) mmol/L Potassium 4.1 (3.3-5.1) mmol/L Chloride 105 (96-108) mmol/L Carbon Dioxide 22 (22-30) mmol/L BUN 18 (8-23) mg/dl Creatinine 0.5 L (0.6-1.1) mg/dl Glucose 107 H (70-105) mg/dL Calcium 8.7 (8.6-10.4) mg/dl Total Bilirubin 0.3 (0.0-1.0) mg/dL AST 13 (0-37) U/l ALT 14 (0-40) U/l Alkaline Phosphatase 64 (39-117) U/L Total Protein 5.4 L (5.9-8.4) gm/dL Albumin 2.9 L (3.2-5.2) gm/dL Assessment and Plan (1) Status post colectomy Status: Acute Assessment and plan: Stable stable postoperative course General strength is improving ;p.o. intake is also improving Current Visit: Yes (2) Pneumonitis Status: Acute Assessment and plan: Clinically resolved Current Visit: Yes (3) Protein-calorie malnutrition, moderate Status: Acute Assessment and plan: Discontinue TPN today Current Visit: Yes - Time Spent With Patient Total time spent is greater than 50% in coordination of care (as documented) at patient's floor/unit and/or counseling patient:
--- NOTE | 2017-07-07 16:16 | Internal Med Progress Note ---
Medical - PN: Subj Patient information: Note initiated : 07/07/17 at 4:12 pm Service Date, if different from initiated Date: [] Patient: Caroline Bellamy a 77 y/o F admitted on 07/02/17 for Open sigmoidectomy. Chief Complaint: [] Interval history: Ms. Adiel Cardoso is a 77 year old female who presented in mid May with abdominal pain. She was ultimately diagnosed with perforated diverticulitis, and underwent exploratory laparotomy, a hemicolectomy with ileostomy, Clark's procedure with mucous fistula. She had a rough postop course, and developed respiratory failure, requiring ventilator management, and then BiPAP management. She was treated with Zosyn for pneumonia as well as for intra- abdominal infection. Cultures grew Pseudomonas, which was sensitive to the Zosyn. White blood cell count began rising later, so vancomycin was added also. The patient has had trouble getting her appetite back, and was considered quite malnourished. TPN was started. She is now slowly starting to tolerate food better. She is much too weak to return home and perform right usual activities , so has been admitted to swing bed status for rehab and strengthening prior to returning home. Today, she is feeling stronger and says her appetite is better. She is in good spirits. She does note that she has had a little bit of a cough since yesterday, but feels that her room was too cold last night. She also had a headache and slight dizziness last night after receiving some IV medication, but says that has resolved. Her abdomen still feels a little tight since her surgery, but she denies pain, nausea or vomiting, diarrhea. Otherwise she denies fever chills, current headache, new eye or ear symptoms, sore throat, chest pain or palpitations, shortness of breath or wheezing, abdominal pain, nausea or vomiting, dysuria. July 07 patient seen examined, no acute issues Surgery is following still on abx needs 3 more days, switch to cipro from zosyn, given shortage of zosyn pt strength is improving plans are for d/c on thursday to home no complaints from the patient. labs reviewed will wean of tpn today. Pertinent ROS: Denies headache, dizziness Denies chest pain, palpitations Denies cough or shortness of breath Denies abdominal pain, nausea or vomiting. - Constitutional Vitals: Vital Signs Temp Pulse Resp BP Pulse Ox 98.7 F 82 22 102/50 97 07/07/17 11:32 07/07/17 11:32 07/07/17 11:32 07/07/17 11:32 07/07/17 11:32 Period Temp Pulse Resp BP Sys/[place] Pulse Ox Last 24 Hr 96.3 F-98.9 F 80-88 17-22 98-104/50-58 97-97 Intake and Output 07/07/17 07/07/17 07/07/17 05:59 13:59 21:59 Intake Total 650 / 650 1313.3435 / 1313.3435 Output Total 275 / 275 400 / 400 150 / 150 Balance 375 / 888 593.1079 / 913.3435 -150 / -150 Weight 132 lb 8 oz 132 lb 8 oz Patient Weight 07/08/17 05:59 Weight 132 lb 8 oz Intake & Output: Intake & Output 07/07/17 07/07/17 07/07/17 05:59 13:59 21:59 Intake Total 650 / 650 1313.3435 / 1313.3435 Output Total 275 / 275 400 / 400 150 / 150 Balance 375 / 621 257.5902 / 913.3435 -150 / -150 Weight 132 lb 8 oz 132 lb 8 oz Intake: IV 300 / 300 1113.3435 / 1113.3435 Calcium Gluconate 5 Meq 1063.3435 / 1063.3435 Magnesium Sulfate 8.12 Meq Sodium Chloride 60 Meq Potassium Chloride 30 Meq Potassium Phosphate 40 Meq Infuvite Adult 10 ml Selenium 60 Mcg In Clinimix 5%-20% Solution 1,000 ml @ 20 mls/hr IV Q24H [facility] Rx#:[id number] Intralipid 20% 250 ml In Premix 250 / 250 1 Bag @ 25 mls/hr IV DAILY@ 1600 [facility] Rx#:[id number] Zosyn 3.375 gm In Dextrose 5% 50 / 50 50 / 50 in Water 50 ml @ 100 mls/hr IV Q6H [facility] Rx#:[id number] Oral 350 / 350 200 / 200 Output: Void Amount 275 / 275 300 / 300 150 / 150 Stool 100 / 100 Other: Meal Lunch Percent of Meal Consumed 100% # Voids 1 1 # Bowel Movements 1 Exam: Constitutional; Afebrile, cooperative, alert, not in distress. Eyes- No icterus, , No periorbital swelling Ears- Ext ear normal, hearing normal to conversation. Neck- Midline trachea, supple Respiratory system: Air Entry equal on both sides, No crackles or wheezing, no rhonchi. CVS- Rate rhythm regular, S1,S2 heard, no gallop, no rub. Abdomen- Soft nontender abdomen, no organomegaly, no tenderness, no guarding or rigidity, [employer]- AOOx2, moving all extremities, no gross focal deficit noted. Medical - PN: Obj Da - Labs CBC & Chem 7: 07/07/17 05:00 07/07/17 05:00 Labs: Abnormal Lab Results 07/07/17 07/07/17 07/05/17 05:00 05:00 04:20 RBC 3.53 L Hgb 9.6 L Hct 28.9 L RDW 19.2 H Gran % 80.8 H Lymph % (Auto) 8.7 L Lymph # (Auto) 0.6 L Carbon Dioxide 20 L Creatinine 0.5 L 0.4 L Glucose 107 H Uric Acid 2.1 L GGT 66 H 75 H Total Protein 5.4 L 5.6 L Albumin 2.9 L 3.1 L Meds: Medications Acetaminophen (Tylenol) 650 mg PO Q6HP PRN PRN Reason: PAIN/FEVER > 101 Hydrocodone Bitart/Acetaminophen ([place] 5/325mg) 1 tab PO Q4HP PRN PRN Reason: Pain Last Admin: 07/07/17 11:59 Dose: 1 tab Albuterol Sulfate (Ventolin) 2.5 mg NEB Q2HP PRN PRN Reason: Shortness Of Breath Or Wheezing Last Admin: 07/06/17 01:15 Dose: 2.5 mg Artificial Tears (Artificial Tears Ophth Drops) 1 gtt OD QIDP PRN PRN Reason: Dry Eye(s) Dextrose (Dextrose 50%) 25 ml IV UD PRN PRN Reason: Hypoglycemia Diagnostic Test (Pha) (Accu-Chek) 1 each FS Q6 [facility] Last Admin: 07/07/17 11:30 Dose: 1 each Guaifenesin/Codeine Phosphate (Robitussin Ac) 5 ml PO Q4HP PRN PRN Reason: Cough Heparin Sodium (Porcine) (Heparin) 5,000 unit SQ Q12 [facility] Last Admin: 07/07/17 09:55 Dose: 5,000 unit Hydromorphone HCl (Dilaudid) 0.5 mg IV Q1HP PRN PRN Reason: Pain Last Admin: 07/04/17 06:16 Dose: 0.5 mg Vancomycin HCl 1,500 mg/ (Sodium Chloride) 500 mls @ 333.3 mls/hr IV Q24H [facility] Last Admin: 07/07/17 11:27 Dose: 333 mls/hr Insulin Human Lispro (Humalog) 0 unit SQ Q6 [facility] PRN Reason: Protocol Last Admin: 07/07/17 11:45 Dose: Not Given Lidocaine HCl (Lidocaine Viscous 2%) 5 ml PO Q4HP PRN PRN Reason: Pain Lorazepam (Ativan) 1 mg IV Q4-6HP PRN PRN Reason: ANXIETY/SEDATION Nystatin (Nystatin) 500,000 units SSW TID [facility] Last Admin: 07/07/17 14:52 Dose: 500,000 units Pantoprazole Sodium (Protonix) 40 mg PO BIDAC [facility] Prednisone (Prednisone) 10 mg PO QAC [facility] Sodium Chloride (Saline Flush) 10 ml IV Q8 [facility] Last Admin: 07/07/17 14:17 Dose: 10 ml Sodium Chloride (Saline Flush) 10 ml IV UD PRN PRN Reason: medication Zolpidem Tartrate (Ambien) 5 mg PO HSP PRN PRN Reason: Insomnia Last Admin: 07/06/17 21:05 Dose: 5 mg Medical - PN: A/P - Time Spent With Patient Total time spent is greater than 50% in coordination of care (as documented) at patient's floor/unit and/or counseling patient: - Narrative A/P Narrative: A/P Narrative: 77-year-old female went to the operating room on 06/14, resection of sigmoid mass, a contained perforation of transverse colon and spontaneous rupture of right colon intraoperatively. no e/o malignancy on bipsoy #1. GI/infectious disease. status post exploratory laparotomy, hemicolectomy with ileostomy, Clark's procedure with mucous fistula. both draining well, surgery following. -Advancing diet as tolerated. -She is doing quite well, and is tolerating more and more of an oral diet every day. She has improved her oral intake, will d/c tpn today. #2.-Pulmonary. -HCAP PNA: Pseudomonas levine sensitive on cipro from today, another 3-4 more days , will continue till discharge (thursday anticpated) Asthma: Weaning prednisone. cut back dose to 10mg AM Stop duo nebs. Scheduled plus as needed albuterol nebulizer treatments. #4. Hypokalemia / Hypomagnesemia. Resolved. #5. Anemia: Stable postop. #6. CODE STATUS, discussed with the patient , is DNR #7. Prophylaxis: Protonix, SCD's, hep sq . 8. Patient developed a tongue ulcer after intubation, so is using viscous lidocaine topically as needed. She is also on nystatin swish and swallow, and she may have mild thrush. continue with rehab. anticipate d /c on thursday. Medical - PN: Qual - VTE Deep Vein Thrombosis/Pulmonary Embolism Present on Admission: No
[2017-07-07] MEDS: PANTOPRAZOLE 40 MG TABLET PO SCH (18:09)
[2017-07-07] MEDS: CIPROFLOXACIN 400 MG/200 ML BAG IV SCH (18:10)
[2017-07-07] MEDS: ALBUTEROL SULFATE 2.5 MG/3 ML NEBULIZER NEB PRN (19:48)
[2017-07-07] MEDS: ZOLPIDEM 5 MG TABLET PO PRN (20:34)
[2017-07-08] MEDS: INSULIN LISPRO 1 UNIT/0.01 ML UNIT SQ SCH ×2 (00:05→05:31)
[2017-07-08] MEDS: HYDROcodone/APAP 5/325MG TABLET PO PRN ×3 (05:28→19:10)
[2017-07-08] MEDS: 0.9 % SODIUM CHLORIDE 10 ML SYRINGE IV SCH ×3 (05:31→20:46)
[2017-07-08] MEDS: CIPROFLOXACIN 400 MG/200 ML BAG IV SCH ×2 (06:47→20:46)
[2017-07-08] MEDS: predniSONE 10 MG TABLET PO SCH (07:17)
[2017-07-08] MEDS: PANTOPRAZOLE 40 MG TABLET PO SCH ×2 (07:17→16:50)
[2017-07-08] MEDS: NYSTATIN 500,000 UNITS/5 ML ORAL.SUSP SSW SCH ×3 (09:24→20:46)
[2017-07-08] MEDS: VANCOMYCIN 1,500 MG in 0.9 % SODIUM CHLORIDE 500 ML IV SCH (09:24)
[2017-07-08] MEDS: HEPARIN 5,000 UNIT/ML VIAL SQ SCH ×2 (09:24→20:46)
[2017-07-08] MEDS: ZOLPIDEM 5 MG TABLET PO PRN (20:46)
[2017-07-09] MEDS: HYDROcodone/APAP 5/325MG TABLET PO PRN ×4 (00:21→20:19)
[2017-07-09] MEDS: 0.9 % SODIUM CHLORIDE 10 ML SYRINGE IV SCH ×3 (05:05→21:15)
[2017-07-09 06:04] LABS: Basophils # (Auto) 0 K/mcL (0.0-0.3); Basophils % (Auto) 0.1 % (0.0-2.0); Eosinophils # (Auto) 0.1 K/mcL (0.0-0.7); Eosinophils % (Auto) 2.3 % (0.0-7.0); Granulocytes % (Auto) 79.3 % (38.0-78.0); Lymphocytes # (Auto) 0.5 K/mcL (1.5-4.8); Mean Cell Volume 82.5 fL (80.0-100.0); Mean Corpuscular HGB Conc 32.3 g/dL (31.0-36.0); Mean Corpuscular Hemoglobin 26.6 pg (26.0-34.0); Monocytes # (Auto) 0.4 K/mcL (0.1-0.9); Monocytes % (Auto) 7.3 % (1.0-12.0); Platelet Count 178 K/mcL (140-440); RBC 3.37 M/mcL (4.00-5.20); Red Cell Distribution Width 19.6 % (11.5-14.5)
[2017-07-09 06:41] LABS: ALT/SGPT 23 U/l (0-40); Albumin 2.9 gm/dL (3.2-5.2); Albumin/Globulin Ratio 1.3 (1.0-2.3); Alkaline Phosphatase 65 U/L (39-117); Bilirubin,Direct < 0.2 mg/dL (0.0-0.3); Blood Urea Nitrogen 18 mg/dl (8-23); Gamma Glutamyl Transpeptidase 61 U/L (5-36); Magnesium 1.8 mg/dL (1.6-2.5); Uric Acid 5.6 mg/dL (2.5-8.0)
[2017-07-09] MEDS: PANTOPRAZOLE 40 MG TABLET PO SCH ×2 (07:31→17:43)
[2017-07-09] MEDS: predniSONE 10 MG TABLET PO SCH (07:31)
[2017-07-09] MEDS: CIPROFLOXACIN 400 MG/200 ML BAG IV SCH ×2 (11:45→20:18)
[2017-07-09] MEDS: HEPARIN 5,000 UNIT/ML VIAL SQ SCH ×2 (12:46→20:18)
[2017-07-09] MEDS: NYSTATIN 500,000 UNITS/5 ML ORAL.SUSP SSW SCH ×3 (12:46→20:18)
[2017-07-09] MEDS: VANCOMYCIN 1,500 MG in 0.9 % SODIUM CHLORIDE 500 ML IV SCH (16:22)
--- NOTE | 2017-07-09 17:18 | General Surgery Progress Note ---
Subjective Patient reports: feels better, pain is less, flatus, bowel movement, afebrile Narrative: Note initiated : 07/09/17 at 5:18 pm Service Date, if different from initiated Date: [] Patient: Caroline Bellamy 77 y/o F admitted on 07/02/17 for Open sigmoidectomy. Chief Complaint: [patient is feeling better and her by mouth intake is significantly increased. She denies any discomfort and she has become more mobile. Discussed with her the need for care home; she is not very accepting of this and wishes to go home. We'll leave disposition up to physical therapy and case management.] Objective Temp Pulse Resp BP Pulse Ox 98.9 F 74 16 107/67 97 07/09/17 07:33 07/09/17 07:33 07/09/17 07:33 07/09/17 07:33 07/09/17 07:33 - Additional Data Intake & Output - Last 24 hours: Intake & Output 07/07/17 07/08/17 07/09/17 07/10/17 05:59 05:59 05:59 05:59 Intake Total 1999 / 1999 2313.3435 / 2313.3435 1570 / 1570 Output Total 1050 / 1050 1350 / 1350 1075 / 1075 Balance 950 / 365 324.2418 / 963.3435 495 / 495 Weight 132 lb 8 oz 133 lb 134 lb - General physical appearance no distress, other (mmild abdominal pain) - Eyes PERRL - ENT no congestion - Neck no venous distension - Respiratory clear to auscultation - Cardiovascular Cardiovascular exam: Present: normal rate and rhythm, RRR, +S1, +S2. Absent: JVD - Abdomen soft, non tender (abdominal exam is benign except for small amount of drainage at base of the incision) - Integumentary no rash, no growths, no abnormal pigmentation - Neurologic normal coordination, normal sensation, other - Musculoskeletal normal gait (mmobility has significantly improved), normal posture - Psychiatric oriented to time, oriented to person, oriented to place, speech is normal, memory intact - Labs 07/09/17 04:25 07/09/17 04:25 Diabetes panel 07/09/17 Range/Units 04:25 Sodium 139 (133-145) mmol/L Potassium 3.7 (3.3-5.1) mmol/L Chloride 104 (96-108) mmol/L Carbon Dioxide 23 (22-30) mmol/L BUN 18 (8-23) mg/dl Creatinine 0.7 (0.6-1.1) mg/dl Glucose 88 (70-105) mg/dL Calcium 8.9 (8.6-10.4) mg/dl AST 25 (0-37) U/l ALT 23 (0-40) U/l Alkaline Phosphatase 65 (39-117) U/L Total Protein 5.1 L (5.9-8.4) gm/dL Albumin 2.9 L (3.2-5.2) gm/dL Triglycerides 167 H (<150) mg/dl Calcium panel 07/09/17 Range/Units 04:25 Calcium 8.9 (8.6-10.4) mg/dl Phosphorus 3.6 (2.7-4.5) mg/dL Albumin 2.9 L (3.2-5.2) gm/dL Pituitary panel 07/09/17 Range/Units 04:25 Sodium 139 (133-145) mmol/L Potassium 3.7 (3.3-5.1) mmol/L Chloride 104 (96-108) mmol/L Carbon Dioxide 23 (22-30) mmol/L BUN 18 (8-23) mg/dl Creatinine 0.7 (0.6-1.1) mg/dl Glucose 88 (70-105) mg/dL Calcium 8.9 (8.6-10.4) mg/dl Adrenal panel 07/09/17 Range/Units 04:25 Sodium 139 (133-145) mmol/L Potassium 3.7 (3.3-5.1) mmol/L Chloride 104 (96-108) mmol/L Carbon Dioxide 23 (22-30) mmol/L BUN 18 (8-23) mg/dl Creatinine 0.7 (0.6-1.1) mg/dl Glucose 88 (70-105) mg/dL Calcium 8.9 (8.6-10.4) mg/dl Total Bilirubin 0.4 (0.0-1.0) mg/dL AST 25 (0-37) U/l ALT 23 (0-40) U/l Alkaline Phosphatase 65 (39-117) U/L Total Protein 5.1 L (5.9-8.4) gm/dL Albumin 2.9 L (3.2-5.2) gm/dL Assessment and Plan (1) Status post colectomy Status: Acute Assessment and plan: Stable stable postoperative course General strength is improving ;p.o. intake is also improving (2) Pneumonitis Status: Acute Assessment and plan: Clinically resolved (3) Protein-calorie malnutrition, moderate Status: Acute Assessment and plan: Discontinue TPN today - Time Spent With Patient Total time spent is greater than 50% in coordination of care (as documented) at patient's floor/unit and/or counseling patient:
[2017-07-09] MEDS: ZOLPIDEM 5 MG TABLET PO PRN (20:50)
[2017-07-10] MEDS: HYDROcodone/APAP 5/325MG TABLET PO PRN ×2 (04:31→08:17)
[2017-07-10] MEDS: 0.9 % SODIUM CHLORIDE 10 ML SYRINGE IV SCH (05:36)
[2017-07-10] MEDS: predniSONE 10 MG TABLET PO SCH (07:44)
[2017-07-10] MEDS: PANTOPRAZOLE 40 MG TABLET PO SCH (07:44)
[2017-07-10] MEDS: HEPARIN 5,000 UNIT/ML VIAL SQ SCH (08:17)
[2017-07-10] MEDS: CIPROFLOXACIN 400 MG/200 ML BAG IV SCH (08:18)
[2017-07-10] MEDS: NYSTATIN 500,000 UNITS/5 ML ORAL.SUSP SSW SCH (08:18)
--- NOTE | 2017-07-10 10:55 | Discharge Summary ---
Medical - DS: Prov Patient information: Note initiated : 07/10/17 at 10:47 am Service Date, if different from initiated Date: [] Patient: Caroline Bellamy 77 y/o F admitted on 07/02/17 for Open sigmoidectomy. Chief Complaint: [] Date of admission: 07/02/17 12:08 Discharge date: 07/10/17 Primary care physician: [place] Mohamud Admitting clinician: Jaylene Nicholson Consults: 07/02/17 17:57 Consult to Physician [CONS] Routine Comment: re: recent gi surgery issues Consulting Provider: Amada Eubanks Reason For Exam: Physician to Consult Discharging clinician: Henrique Collins Medical - DS: Meds - Discharge Medications Prescriptions: guaiFENesin/CODEINE [Robitussin AC] 5 ml PO Q4HP PRN #240 ml PRN Reason: Cough HYDROcodone/APAP 5/325MG [[place] 5/325Mg] 1 tab PO Q4HP PRN #30 tab PRN Reason: Pain Nystatin 500,000 units SSW TID #110 ml Omeprazole [Prilosec] 20 mg PO ACB #30 cap Active and Home Medications: Home Medications HYDROcodone/APAP 5/325MG [[place] 5/325Mg] 1 tab PO Q6HP PRN #20 tab 05/19/16 [Rx Confirmed 07/02/17 Last Taken 06/11/17 22:00] 0.9 % Sodium Chloride [Saline Flush] 10 ml IV Q8 syringe 07/02/17 [Rx Confirmed 07/02/17 Last Taken 07/02/17 06:00 10 ml.] 0.9 % Sodium Chloride [Saline Flush] 10 ml IV UD PRN syringe 07/02/17 [Rx Confirmed 07/02/17 Last Taken 07/02/17 10 ml.] Accu-Chek 1 each FS Q6 strip 07/02/17 [Rx Confirmed 07/02/17 Last Taken 12:00 1] Acetaminophen [Tylenol] 650 mg PO Q6HP PRN tablet 07/02/17 [Rx Confirmed Last Taken Unknown] Albuterol Sulfate [Ventolin] 2.5 mg NEB Q2HP PRN ampul.neb 07/02/17 [Rx Confirmed 07/02/17 Last Taken 07/02/17 07:00 2.5 mg.] Calcium Gluconate 5 meq IV Q21H vial 07/02/17 [Rx Confirmed 07/02/17 Last Taken Unknown] Dextrose 50% 25 ml IV UD PRN vial 07/02/17 [Rx Confirmed 07/02/17 Last Taken Unknown] Fat Emulsion 20% [Intralipid 20%] 250 ml IV DAILY@1600 bag 07/02/17 [Rx Confirmed 07/02/17 Last Taken 07/01/17 16:00 250 ml.] HYDROmorphone [Dilaudid] 0.5 mg IV Q1HP PRN syringe 07/02/17 [Rx Confirmed 10/17 Last Taken 07/02/17 12:00 0.5 mg.] Heparin 5,000 unit SQ Q12 vial 07/02/17 [Rx Confirmed 07/02/17 Last Taken 07/02 09:00 5000 units] Insulin Lispro [Humalog] See Protocol SQ Q6 #1 unit 07/02/17 [Rx Confirmed 07/02 Last Taken 07/01/17 00:00 1 unit] LORazepam [Ativan] 1 mg IV Q4-6HP PRN vial 07/02/17 [Rx Confirmed 07/02/17 Last Taken Unknown] Lidocaine Viscous 2% 5 ml PO Q4HP PRN solution 07/02/17 [Rx Confirmed 07/02/17 Last Taken 07/02/17 08:00 5 ml.] Magnesium Sulfate 8.12 meq IV Q21H vial 07/02/17 [Rx Confirmed 07/02/17 Last Taken Unknown] Mvi, Adult No.4 with Vit K [Infuvite Adult] 10 ml IV Q21H vial 07/02/17 [Rx Confirmed 07/02/17 Last Taken 07/02/17 06:00] Nystatin 500,000 units SSW TID oral.susp 07/02/17 [Rx Confirmed 07/02/17 Last Taken 07/02/17 09:00 [id number] units] Ondansetron [Zofran] 4 mg IV Q6HP PRN vial 07/02/17 [Rx Confirmed 07/02/17 Last Taken Unknown] Pantoprazole [Protonix] 40 mg IV BIDAC vial 07/02/17 [Rx Confirmed 07/02/17 Last Taken 07/02/17 07:30 40 mg.] Piperacillin Sodium/Tazobactam [Zosyn] 3.375 gm IV Q6H vial 07/02/17 [Rx Confirmed 07/02/17 Last Taken 07/02/17 12:00 3.375 mg.] Polyvinyl Alcohol Ophth Drops [Artificial Tears Ophth Drops] 1 gtt OD QIDP PRN bottle 07/02/17 [Rx Confirmed 07/02/17 Last Taken Unknown] Potassium Chloride 30 meq IV Q21H vial 07/02/17 [Rx Confirmed 07/02/17 Last Taken 07/02/17 06:00] Potassium Phosphate 40 meq IV Q21H vial 07/02/17 [Rx Confirmed 07/02/17 Last Taken 07/02/17 06:00] Selenium 60 mcg IV Q21H ml 07/02/17 [Rx Confirmed 07/02/17 Last Taken 07/02/17 06:00] Sodium Chloride 50 meq IV Q21H ml 07/02/17 [Rx Confirmed 07/02/17 Last Taken 06:00] Vancomycin 1,500 mg IV Q24H vial 07/02/17 [Rx Confirmed 07/02/17 Last Taken 10/17 10:00 1500 mg.] predniSONE [Prednisone] 20 mg PO QAMCC tablet 07/02/17 [Rx Confirmed 07/02/17 Last Taken 07/02/17 08:00 30 mg.] Medical - DS: Hosp Hospital course: Ms. Adiel Cardoso is a 77 year old female who presented in mid May with abdominal pain. She was ultimately diagnosed with perforated diverticulitis, and underwent exploratory laparotomy, a hemicolectomy with ileostomy, Clark's procedure with mucous fistula. She had a rough postop course, and developed respiratory failure, requiring ventilator management, and then BiPAP management. She was treated with Zosyn for pneumonia as well as for intra- abdominal infection. Cultures grew Pseudomonas, which was sensitive to the Zosyn. White blood cell count began rising later, so vancomycin was added also. The patient has had trouble getting her appetite back, and was considered quite malnourished. TPN was started. She slowly starting to tolerate food better. She was much too weak to return home and perform right usual activities , so has been admitted to swing bed status for rehab and strengthening prior to returning home. The patient participated in the rehab program in swing bed status, she was continued on TPN for a while till we were able to successfully wean her off the TNP and she was able to tolerate oral diet well with adequate nutrition. The patient has completed the course of antibiotics. At this the the patient is still weak, but wishes to go home with family, who are willing to take responsibility for the patient needs The patient has ostomy and a diverting fistula from her bowel surgeries. She will need to follow up with Dr Eubanks in the clinic as outpatient for further evaluation and then surgery again for closure in the near future. The patient was on steroids for reactive airway disease, does not have h/o asthma it seems will taper the steroids gradually after discharge. The patient on the day of discharge is doing well, tolerating po well, ambulating with help of support. She will be discharged with home health. Discharge diagnosis: Weakness, ostomy care. PNeumonia. - Time Spent with Patient Total time spent providing and/or coordinating discharge services: Greater than 30 minutes Medical - DS: Exam - Constitutional Vitals: Vital Signs Temp Pulse Resp BP Pulse Ox 07/10/17 08:00 16 95 07/10/17 07:58 98.7 F 88 16 108/69 95 07/09/17 23:25 97.4 F 112 H 20 116/74 95 07/09/17 20:00 98.4 F 78 14 109/67 94 Intake and Output 07/09/17 07/10/17 07/10/17 21:59 05:59 13:59 Intake Total 320 / 320 400 / 400 800 / 800 Output Total 650 / 650 675 / 675 50 / 50 Balance -330 / -330 -275 / -275 750 / 750 Intake: IV 200 / 200 200 / 200 Oral 120 / 120 400 / 400 600 / 600 Output: Void Amount 650 / 650 575 / 575 50 / 50 Stool 100 / 100 Other: Meal Lunch Breakfast Percent of Meal Consumed 50% 50% Feeding Ability Independent Weight 133 lb Additional comments: Constitutional; Afebrile, cooperative, alert, not in distress. Eyes- No icterus, , No periorbital swelling Ears- Ext ear normal, hearing normal to conversation. Neck- Midline trachea, supple Respiratory system: Air Entry equal on both sides, No crackles or wheezing, no rhonchi. CVS- Rate rhythm regular, S1,S2 heard, no gallop, no rub. Abdomen- Soft nontender abdomen, no organomegaly, no tenderness but still has some soreness, no guarding or rigidity, MANAGER PLANNING- AOOx3, moving all extremities, no gross focal deficit noted. Medical - DS: A/P - Patient/Caregiver Discharge Instructions Activity: as per physical therapy, increase activity as tolerated Diet: Regular Diet Additional Instructions: Follow up with Dr Eubanks as outpatient Follow up with PCP in 1-2 weeks Go to the ER if any worsening of symptoms or any other concern. You are on steroids (Prednisone) which needs to be tapered off slowly, follow the instructions on the prescription for taper. - Follow up Plan Follow up with: Amada Eubanks MD [Physician] - 07/20/17 8:45 am Disposition: Home Health Service Prognosis: Fair Rehab Potential: Fair I certify that the patient requires SNF services: No Overall status at discharge: patient is progressing back to baseline Medical - DS: Qual - VTE Deep Vein Thrombosis/Pulmonary Embolism Present on Admission: No
== END 2017-07-10 13:40 | disposition home health service (06) | DRG 194 ==
LOC: MEDSUR 10:50
PROVIDERS: ADMIT Internal Medicine; ATTEND Internal Medicine

== ENCOUNTER 2017-12-23 06:53 | Inpatient (IN) ==
[2017-12-16 13:18] LABS: Basophils # (Auto) 0 K/mcL (0.0-0.3); Basophils % (Auto) 0.4 % (0.0-2.0); Eosinophils # (Auto) 0.2 K/mcL (0.0-0.7); Eosinophils % (Auto) 3.2 % (0.0-7.0); Granulocytes % (Auto) 71.7 % (38.0-78.0); Lymphocytes # (Auto) 1.2 K/mcL (1.5-4.8); Lymphocytes % (Auto) 16.9 % (15.5-49.0); Mean Cell Volume 76.1 fL (80.0-100.0); Mean Corpuscular HGB Conc 33.3 g/dL (31.0-36.0); Mean Corpuscular Hemoglobin 25.4 pg (26.0-34.0); Monocytes # (Auto) 0.5 K/mcL (0.1-0.9); Monocytes % (Auto) 7.8 % (1.0-12.0); Platelet Count 335 K/mcL (140-440); RBC 4.55 M/mcL (4.00-5.20); Red Cell Distribution Width 15.3 % (11.5-14.5)
[2017-12-16 13:23] LABS: ALT/SGPT 8 U/l (0-40); Albumin/Globulin Ratio 1.4 (1.0-2.3); Alkaline Phosphatase 87 U/L (39-117); Blood Urea Nitrogen 18 mg/dl (8-23)
--- NOTE | 2017-12-16 16:05 | XRay Report ---
CLINICAL INFORMATION: Preop COMPARISON: 07/06/2017 FINDINGS: Heart size, mediastinum and pulmonary vessels are normal. COPD changes with scattered scarring and/or atelectasis in both lower lobes seen - as before. Small bilateral pleural effusions are new IMPRESSION: COPD changes with new small bilateral pleural effusions and mild patchy bibasilar atelectasis and/or scarring. No definite infiltrate Interpreted and Authenticated by: Valentin Torres 12/16/17
[2017-12-23] MEDS ORDERED: FLEETS ADULT ENEMA PR SCH (07:00)
[2017-12-23] MEDS ORDERED: metroNIDAZOLE 500 MG/100 ML BAG IV ONE (07:00)
[2017-12-23] MEDS ORDERED: LEVOFLOXACIN 750 MG/150 ML BAG IV ONE (08:00)
[2017-12-23] MEDS ORDERED: ePHEDrine 50 MG/ML AMPUL IV ONE (11:50)
[2017-12-23] MEDS ORDERED: PROPOFOL 200 MG/20 ML VIAL IV ONE (11:50)
[2017-12-23] MEDS ORDERED: ROCURONIUM 10 MG/ML ML IV ONE (11:50)
[2017-12-23] MEDS ORDERED: MIDAZOLAM 2 MG/2 ML VIAL IV ONE (11:50)
[2017-12-23] MEDS ORDERED: SUCCINYLCHOLINE 20 MG/ML ML IV ONE (11:50)
[2017-12-23] MEDS ORDERED: DEXAMETHASONE 10 MG/ML VIAL IV ONE (11:50)
[2017-12-23] MEDS ORDERED: KETAMINE 100 MG/ML ML IV ONE (11:50)
[2017-12-23] MEDS ORDERED: LIDOCAINE HCL/PF 100 MG/5 ML SYRINGE IV ONE (11:50)
[2017-12-23] MEDS ORDERED: fentaNYL 100 MCG/2 ML VIAL IV ONE (11:50)
[2017-12-23] MEDS ORDERED: NEOSTIGMINE 1 MG/ML VIAL IV ONE (11:50)
[2017-12-23] MEDS ORDERED: GLYCOPYRROLATE 0.2 MG/ML VIAL IV ONE (11:50)
[2017-12-23] MEDS ORDERED: ONDANSETRON 4 MG/2 ML VIAL IV ONE (11:50)
[2017-12-23] MEDS ORDERED: PROMETHAZINE 25 MG/ML VIAL IV PRN ×2 (14:21→15:18)
[2017-12-23] MEDS ORDERED: IPRATROPIUM/ALBUTEROL 3 ML AMPUL.NEB NEB PRN (14:21)
[2017-12-23] MEDS ORDERED: ACETAMINOPHEN 1,000 MG/100 ML BOTTLE IV ONE (14:21)
[2017-12-23] MEDS ORDERED: MEPERIDINE 50 MG/ML INJECTION IV PRN (14:21)
[2017-12-23] MEDS ORDERED: NALOXONE HCL 0.4 MG/ML VIAL IV PRN (14:21)
[2017-12-23] MEDS ORDERED: FLUMAZENIL 0.1 MG/ML ML IV PRN (14:21)
[2017-12-23] MEDS ORDERED: LACTATED RINGERS 250 ML IV PRN (14:21)
[2017-12-23] MEDS ORDERED: fentaNYL 100 MCG/2 ML VIAL IV PRN (14:21)
[2017-12-23] MEDS ORDERED: BENZOCAINE/MENTHOL 1 LOZENGE PO PRN (14:21)
[2017-12-23] MEDS ORDERED: diphenhydrAMINE 50 MG/ML VIAL IV PRN (14:21)
[2017-12-23] MEDS ORDERED: ONDANSETRON 4 MG/2 ML VIAL IV PRN (14:21)
[2017-12-23] MEDS ORDERED: LACTATED RINGERS 1,000 ML IV SCH (14:30)
--- NOTE | 2017-12-23 14:56 | Brief Operative Note ---
Date of procedure: 12/23/17 Pre-op diagnosis: ILEOSTOMY STATUS Post-op diagnosis: other (ILEOSTOMY STATUS; EXTENSIVE INTRAABDOMINAL ADHESIONS AND CHRONIC INTESTINAL INFLAMMATION) Procedure: EXPLORATORY LAPAROTOMY; EXTENSIVE ADHESIOLYSIS AND SMALL BOWEL RESECTION Grafts/Implants: No Anesthesia: GETA Findings: TOTAL PERITONEAL SEVERE ADHESIONS ; INFLAMMED SMALL BOWEL LOOPS; Complications: none Surgeon: Amada Eubanks Estimated blood loss (cc): 100 Specimens Removed/Pathology: other (SMALL BOWEL SEGMENT) Condition: stable Disposition: PACU
[2017-12-23] MEDS ORDERED: HEPARIN/NS 500 ML IV ONE (15:51)
--- NOTE | 2017-12-23 16:11 | Procedure Note ---
Procedures - Arterial Line Time out performed: Yes Size (Gauge): 20 Technique used: guide wire technique Post-Procedure: dry sterile dressing placed, easily flushed, waveform correlation Patient tolerated procedure: well Complications: none Site: right, radial
[2017-12-23] MEDS ORDERED: PROPOFOL 100 ML IV ONE (16:17)
[2017-12-23] MEDS: PROPOFOL 1,000 MG in PREMIX 1 BAG IV SCH (16:22)
--- NOTE | 2017-12-23 16:55 | Internal Medicine Consult Note ---
Medical - CN: HPI - Data of Consult Consult date: 12/23/17 Requesting Physician: Amada Eubanks MD Primary Care Provider: [place] Mohamud - Consult Narrative Reason for consult: ventilator management History of present illness: Ms. Adiel Cardoso is a 77 year old F with a complex history with hospitalization May 2017 with diverticulitis perforation/peritonitis and prolonged hospital stay. 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 Hospitalization course was complicated by respiratory failure requiring mechanical ventilation and intra-abdominal infection with Pseudomonas. She underwent rehabilitation/TPN and prolonged hospitalization and was gradually recovering. She she now underwent expiratory laparotomy with extensive epidural lysis and small bowel resection. Postoperatively patient was unable to be extubated. Subsequently hospitalist service was consulted and patient was brought into the ICU on mechanical ventilation. patient currently on propofol/fentanyl. No family members available. systolics around 100. Patient has a line. Foleys catheter draining clear urine most of the history was obtained from review of medical records and from surgeon Dr. Eubanks. review of systems Attempted but could not be performed CC: Amada Eubanks MD Medical - CN: PMH Medical history: Spasm of paraspinal muscle (Acute) Muscle spasm of back, arthritis Thoracic back pain (Acute) Abdominal pain (Acute) Dilated bile duct (Acute) Pulmonary fibrosis, asthma Surgical history: s/p Appendectomy s/p Cholecystectomy s/p BTL status post exploratory laparotomy for perforated diverticulitis with ileostomy May 2017 Pertinent family history: Reviewed from medical records Mother at advanced age of a blood disorder (perhaps leukemia) Father of lung cancer, was a smoker Social history: nonsmoker lives alone Have you smoked in the last 12 months: No Drug use: none Medical - CN: Meds Home Medications Medication Instructions Recorded Confirmed Type HYDROcodone/APAP 5/325MG [Hemet 1 tab PO DAILYP PRN 12/16/17 12/23/17 History 5-325Mg] Ibuprofen [Motrin] 200 mg PO Q4HP PRN 12/16/17 12/23/17 History Zolpidem Tartrate [Ambien] 5 mg PO QHS 12/16/17 12/23/17 History Albuterol Sulfate [Ventolin] 12/23/17 History Allergies Allergy/AdvReac Type Severity Reaction Status Date / Time Nitrous Oxide AdvReac Mild Hallucinati Verified 12/16/17 11:06 ng Medical - CN: Exam - Constitutional Vitals: Temp Pulse Resp BP Pulse Ox 97.0 F 73 14 117/61 100 12/23/17 08:00 12/23/17 08:00 12/23/17 16:17 12/23/17 08:00 12/23/17 16:17 General appearance: no acute distress Exam: on mechanical ventilation Oral cavity dry ET tube in place NG tube in place Pupils symmetric no ear Discharge head normocephalic neck no lymphadenopathy S1 and S2 regular Diminished breath sounds bases Abdomen soft, postoperative agata noted, ileostomy B no cyanosis clubbing Foleys catheter draining clear urine skin no suspicious lesion Psych and neuro exam could not be performed patient on mechanical ventilator Medical - CN: Result - Labs CBC & Chem 7: 12/24/17 03:51 12/24/17 03:51 Medical - CN: A/P (1) On mechanically assisted ventilation Status: Acute Assessment and plan: * status post expiratory approximately.postop day 1-managed by surgery. antibiotic coverage per surgery hospitalist consult * mechanical ventilation-management per protocol. Titrate vent setting with blood gas, daily serial x-rays. ICU sedation on propofol/fentanyl * Hypotension-continue crystalloids. initiate vasopressors to maintain map at 65. Plan * mechanical ventilation per protocol * Close hemodynamic monitoring * Serial blood gas/imaging/labs * I's and O's monitoring-target even fluid status - Narrative A/P Narrative: critical care time 35 minutes on vent management/ABG review/ventilator settings, imaging review Procedures - Arterial Line Size (Gauge): 20
[2017-12-23] MEDS ORDERED: fentaNYL 2,500 MCG in 0.9 % SODIUM CHLORIDE 200 ML IV SCH (17:00)
[2017-12-23] MEDS ORDERED: HEPARIN/NS 500 ML IV SCH (17:00)
[2017-12-23] MEDS ORDERED: PROPOFOL 100 ML IV SCH (17:00)
--- NOTE | 2017-12-23 17:01 | XRay Report ---
CLINICAL INFORMATION: Reason for Exam:ETT placement COMPARISON: 12/16/2017 FINDINGS: The endotracheal tip is in satisfactory position 3.3 cm above the ama. NG tube extends to at least the gastric body. The heart is borderline enlarged, but unchanged. Mediastinum and pulmonary vessels are normal. Moderate patchy infiltrate has developed in the right base. There is minor atelectasis left base. Small bilateral pleural effusions noted IMPRESSION: Moderate patchy right basilar infiltrate developing. Minor atelectasis left base. Endotracheal tube in satisfactory position 3.3 cm above the ama Interpreted and Authenticated by: Valentin Torres 12/23/17
[2017-12-23] MEDS: 0.9 % SODIUM CHLORIDE 1,000 ML IV SCH (17:20)
[2017-12-23] MEDS: metroNIDAZOLE 500 MG/100 ML BAG IV SCH ×2 (17:38→21:24)
[2017-12-23] MEDS: PANTOPRAZOLE 40 MG VIAL IV SCH (17:50)
[2017-12-23] MEDS: PIPERACILLIN SODIUM/TAZOBACTAM 3.375 GM in DEXTROSE 5% IN WATER 50 ML IV SCH ×2 (19:09→23:01)
[2017-12-23] MEDS: CHLORHEXIDINE GLUCONATE 1 ML ORAL.SOL SWABMOUTH SCH (21:00)
[2017-12-23] MEDS: 0.9 % SODIUM CHLORIDE 10 ML SYRINGE IV SCH (21:24)
[2017-12-23] MEDS ORDERED: NOREPINEPHRINE BITARTRATE 4 MG/4 ML AMPUL IV ONE (23:54)
[2017-12-24] MEDS: NOREPINEPHRINE BITARTRATE 16 MG in 0.9 % SODIUM CHLORIDE 234 ML IV SCH (00:19)
[2017-12-24] MEDS: 0.9 % SODIUM CHLORIDE 250 ML IV SCH ×3 (00:21→23:50)
[2017-12-24] MEDS: PROPOFOL 1,000 MG in PREMIX 1 BAG IV SCH ×3 (00:29→15:26)
[2017-12-24] MEDS: metroNIDAZOLE 500 MG/100 ML BAG IV SCH ×5 (00:31→23:49)
[2017-12-24] MEDS: 0.9 % SODIUM CHLORIDE 1,000 ML IV SCH ×4 (01:16→22:11)
[2017-12-24] MEDS: PIPERACILLIN SODIUM/TAZOBACTAM 3.375 GM in DEXTROSE 5% IN WATER 50 ML IV SCH ×4 (05:22→23:07)
[2017-12-24 05:31] LABS: Basophils # (Auto) 0 K/mcL (0.0-0.3); Basophils % (Auto) 0.1 % (0.0-2.0); Eosinophils # (Auto) 0.4 K/mcL (0.0-0.7); Eosinophils % (Auto) 3.5 % (0.0-7.0); Granulocytes % (Auto) 85.2 % (38.0-78.0); Lymphocytes # (Auto) 0.6 K/mcL (1.5-4.8); Lymphocytes % (Auto) 4.4 % (15.5-49.0); Mean Corpuscular HGB Conc 32.5 g/dL (31.0-36.0); Monocytes # (Auto) 0.9 K/mcL (0.1-0.9); Monocytes % (Auto) 6.8 % (1.0-12.0); Platelet Count 290 K/mcL (140-440); RBC 3.83 M/mcL (4.00-5.20); Red Cell Distribution Width 15.5 % (11.5-14.5)
[2017-12-24 05:54] LABS: ALT/SGPT 11 U/l (0-40); Albumin/Globulin Ratio 1.3 (1.0-2.3); Alkaline Phosphatase 67 U/L (39-117); Bilirubin,Direct < 0.2 mg/dL (0.0-0.3); Blood Urea Nitrogen 15 mg/dl (8-23); Gamma Glutamyl Transpeptidase 37 U/L (5-36); Uric Acid 4.8 mg/dL (2.5-8.0)
[2017-12-24] MEDS: 0.9 % SODIUM CHLORIDE 10 ML SYRINGE IV SCH ×3 (06:06→22:13)
--- NOTE | 2017-12-24 06:56 | XRay Report ---
CLINICAL INFORMATION: Dyspnea on mechanical ventilation. COMPARISON: Portable chest 12/23/2017 1614 hours FINDINGS: Lines and tubes in stable satisfactory position. Cardiomediastinal silhouette and pulmonary vessels are normal. Moderate atelectasis or infiltrate in the left base - retrocardiac region is more consolidated today's study. Small left pleural effusion has worsened slightly. Small left moderate patchy infiltrate or atelectasis right base and small right pleural effusion also progressing IMPRESSION: Moderate left and [id number] right patchy bibasilar infiltrate/atelectasis and small effusions progressing from yesterday. Interpreted and Authenticated by: Valentin Torres 12/24/17
[2017-12-24] MEDS: PANTOPRAZOLE 40 MG VIAL IV SCH ×2 (07:13→18:05)
--- NOTE | 2017-12-24 09:32 | Internal Med Progress Note ---
Medical - PN: Subj Patient information: Note initiated : 12/24/17 at 9:25 am Service Date, if different from initiated Date: [] Patient: Caroline Bellamy a 77 y/o F admitted on 12/23/17 for Ileostomy Closure and Colorectal Anastomosis. Chief Complaint: [] Interval history: Ms. Adiel Cardoso is a 77 year old F with a complex history with hospitalization May 2017 with diverticulitis perforation/peritonitis and prolonged hospital stay. 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 Hospitalization course was complicated by respiratory failure requiring mechanical ventilation and intra-abdominal infection with Pseudomonas. She underwent rehabilitation/TPN and prolonged hospitalization and was gradually recovering. She she now underwent expiratory laparotomy with extensive epidural lysis and small bowel resection. Postoperatively patient was unable to be extubated. Subsequently hospitalist service was consulted and patient was brought into the ICU on mechanical ventilation. patient currently on propofol/fentanyl. No family members available. systolics around 100. Patient has a line. Foleys catheter draining clear urine December 24-patient on mechanical ventilation. Map at 65 on 5 mics Levophed. Improving urine output. On light sedation. Weaning ventilator down to FiO2 35% , ABG 7.47/31/147. chest imaging revealed moderate left and small to moderat bibasilar infiltrate/effusion worsening since previous day. on Zosyn/Flagyl. Continue propofol/fentanyl for sedation. Start sedation holiday in a.m. for possible extubation. Continue weaning vasopressors. - Constitutional Vitals: Vital Signs Temp Pulse Resp BP Pulse Ox 98.1 F 74 14 118/67 100 12/24/17 04:00 12/24/17 06:00 12/24/17 07:00 12/24/17 05:31 12/24/17 07:00 Period Temp Pulse Resp BP Sys/[place] Pulse Ox Last 24 Hr 98.1 F-99.2 F 72-89 - 90-146/54-76 98-100 Intake and Output 12/23/17 12/24/17 12/24/17 21:59 05:59 13:59 Intake Total 268 / 268 366 / 366 1347 / 1347 Output Total 200 / 200 280 / 280 Balance 68 / 68 86 / 86 1347 / 1347 Weight 136 lb 4 oz Intake & Output: Intake & Output 12/23/17 12/24/17 12/24/17 21:59 05:59 13:59 Intake Total 268 / 268 366 / 366 1347 / 1347 Output Total 200 / 200 280 / 280 Balance 68 / 68 86 / 86 1347 / 1347 Weight 136 lb 4 oz Intake: IV 268 / 268 366 / 366 1347 / 1347 Sodium Chloride 0.9% 1,000 ml @ 1000 / 1000 100 mls/hr IV .Q10H [facility] Rx#: [id number] Levophed 16 mg In Sodium 16 / 16 20 / 20 Chloride 0.9% 234 ml @ 10 MCG/ MIN 9.37 mls/hr IV Q24H [facility] Rx# :[id number] Zosyn 3.375 gm In Dextrose 5% 100 / 100 50 / 50 in Water 50 ml @ 100 mls/hr IV Q6H [facility] Rx#:[id number] Diprivan 1,000 mg In Premix 1 6 / 6 Bag @ 5 MCG/KG/MIN 1.85 mls/hr IV .Q24H [facility] Rx#:[id number] fentaNYL 2,500 MCG In Sodium 18 118 / 118 Chloride 0.9% 200 ml @ 25 MCG/ HR 2.5 mls/hr IV Q24H [facility] Rx#: [id number] Output: Gastric Drainage 100 / 100 Left Nare 100 / 100 Urine Catheter Amount 200 / 200 180 / 180 Exam: nondistressed no telemetry events map at goal No anxiety or agitation Diminished breath sounds bases Foleys draining clear urine Medical - PN: Obj Da - Labs CBC & Chem 7: 12/24/17 03:51 12/24/17 03:51 Labs: Abnormal Lab Results 12/24/17 12/24/17 03:51 03:51 WBC 12.5 H RBC 3.83 L Hgb 9.6 L Hct 29.5 L MCV 77.0 L MCH 25.0 L RDW 15.5 H Gran % 85.2 H Lymph % (Auto) 4.4 L Gran # 10.7 H Lymph # (Auto) 0.6 L Carbon Dioxide 21 L Glucose 149 H Calcium 8.1 L GGT 37 H Total Protein 5.3 L Albumin 3.0 L Meds: Medications Chlorhexidine Gluconate (Peridex) 15 ml SWABMOUTH BID [facility] Last Admin: 12/23/17 21:00 Dose: 15 ml Hydromorphone HCl (Dilaudid) 1 mg IV Q4HP PRN PRN Reason: PAIN LEVEL > 6 Metronidazole (Flagyl) 500 mg in 100 mls @ 100 mls/hr IV Q6H [facility] Last Infusion: 12/24/17 07:08 Dose: Infused Sodium Chloride (Sodium Chloride 0.9%) 1,000 mls @ 100 mls/hr IV .Q10H [facility] Last Admin: 12/24/17 09:08 Dose: 100 mls/hr Acetaminophen (Ofirmev) 1,000 mg in 100 mls @ 200 mls/hr IV Q6HP PRN PRN Reason: Pain Piperacillin Sod/Tazobactam (Sod 3.375 gm/ Dextrose) 50 mls @ 100 mls/hr IV Q6H [facility] Last Infusion: 12/24/17 06:09 Dose: Infused Propofol 1,000 mg/ Premix 100 mls @ 1.85 mls/hr IV .Q24H [facility]; 5 MCG/KG/MIN PRN Reason: Protocol Last Titration: 12/24/17 01:00 Dose: 35 mcg/kg/min, 12.97 mls/hr Fentanyl 2,500 mcg/ Sodium (Chloride) 250 mls @ 2.5 mls/hr IV Q24H [facility]; 25 MCG/ HR PRN Reason: Protocol Last Titration: 12/24/17 07:40 Dose: 150 mcg/hr, 15 mls/hr Heparin Sodium/Sodium Chloride (Heparin/Ns) 500 mls @ 0 mls/hr IV .Q0M [facility]; KVO PRN Reason: Protocol Last Admin: 12/24/17 07:13 Dose: 4 mls/hr Norepinephrine Bitartrate 16 (mg/ Sodium Chloride) 250 mls @ 9.37 mls/hr IV Q24H [facility]; 10 MCG/MIN PRN Reason: Protocol Last Titration: 12/24/17 08:10 Dose: 5 mcg/min, 4.68 mls/hr Sodium Chloride (Sodium Chloride 0.9%) 250 mls @ 20 mls/hr IV .[id number] [facility] Last Admin: 12/24/17 00:21 Dose: 20 mls/hr Ondansetron HCl (Zofran) 4 mg IV Q4HP PRN PRN Reason: Nausea And Vomiting Pantoprazole Sodium (Protonix) 40 mg IV BIDAC [facility] Last Admin: 12/24/17 07:13 Dose: 40 mg Promethazine HCl (Phenergan) 12.5 mg IV Q4HP PRN PRN Reason: Nausea And Vomiting Sodium Chloride (Saline Flush) 10 ml IV Q8 [facility] Last Admin: 12/24/17 06:06 Dose: Not Given Medical - PN: A/P - Time Spent With Patient Total time spent is greater than 50% in coordination of care (as documented) at patient's floor/unit and/or counseling patient: Greater than 35 minutes (critical care time) (1) On mechanically assisted ventilation Status: Acute Assessment and plan: * status post exploratory laparotomy. postop day 2-continue postop management per surgery hospitalist consult * mechanical ventilation-management per protocol. daily blood gas/ imaging.continue ICU sedation on propofol/fentanyl * Hypotension-continue crystalloids/vasopressors and feeling as indicated. Plan * mechanical ventilation per protocol * wean vasopressors * daily blood gas/imaging/labs * sedation holiday/Breathing trials in a.m. * I's and O's monitoring-target even fluid status Current Visit: Yes Medical - PN: Qual - VTE Deep Vein Thrombosis/Pulmonary Embolism Present on Admission: No Procedures - Arterial Line Size (Gauge): 20
[2017-12-24] MEDS: CHLORHEXIDINE GLUCONATE 1 ML ORAL.SOL SWABMOUTH SCH ×2 (09:53→21:06)
[2017-12-24] MEDS: fentaNYL 2,500 MCG in 0.9 % SODIUM CHLORIDE 200 ML IV SCH (15:15)
--- NOTE | 2017-12-24 17:02 | General Surgery Progress Note ---
Subjective Patient reports: still having pain, no flatus, no bowel movement, afebrile Narrative: Note initiated : 12/24/17 at 5:00 pm Service Date, if different from initiated Date: [] Patient: Caroline Bellamy 77 y/o F admitted on 12/23/17 for Ileostomy Closure and Colorectal Anastomosis. Chief Complaint: [Patient is stable though she has low blood pressure. She does not have tachycardia. Her propofol and fentanyl were decreased and I was able to inform her that I could not successfully reanastomose her. She is informed that I will discuss it with her more tomorrow after she is extubated and can talk. her oxygenation is good though her chest x-rays shows slight worsening atelectasis. White blood count is slightly elevated. Other labs are unremarkable.] Objective Temp Pulse Resp BP Pulse Ox 99.4 F H 71 12 89/50 100 12/24/17 12:05 12/24/17 12:50 12/24/17 15:35 12/24/17 11:27 12/24/17 15:35 - Additional Data Intake & Output - Last 24 hours: Intake & Output 12/22/17 12/23/17 12/24/17 12/25/17 05:59 05:59 05:59 05:59 Intake Total 843 / 843 1922 Output Total 480 / 480 Balance 363 / 363 1922 Weight 136 lb 4 oz 136 lb 4 oz - General physical appearance well developed, well nourished, no distress, moderate pain, chronically ill - Eyes PERRL, normal ocular movement - ENT normal pinna, normal nares, normal mucosa, no hearing loss, no congestion - Neck no masses, no bruits, trachea midline, no lymphadectomy, no venous distension - Respiratory clear to auscultation (Good breath sounds bilaterally without wheezes or rhonchi ) - Cardiovascular Cardiovascular exam: Present: +S1, +S2, tachycardia. Absent: JVD - Abdomen tender, bowel sounds (Hypoactive bowel sounds; incision looks good), surgical scars (none), masses (none) - Integumentary no rash, no growths, no abnormal pigmentation - Neurologic normal coordination, normal sensation - Psychiatric oriented to time, oriented to person, oriented to place, memory intact - Labs 12/24/17 03:51 12/24/17 03:51 Diabetes panel 12/24/17 Range/Units 03:51 Sodium 136 (133-145) mmol/L Potassium 4.0 (3.3-5.1) mmol/L Chloride 103 (96-108) mmol/L Carbon Dioxide 21 L (22-30) mmol/L BUN 15 (8-23) mg/dl Creatinine 0.7 (0.6-1.1) mg/dl Glucose 149 H (70-105) mg/dL Calcium 8.1 L (8.6-10.4) mg/dl AST 17 (0-37) U/l ALT 11 (0-40) U/l Alkaline Phosphatase 67 (39-117) U/L Total Protein 5.3 L (5.9-8.4) gm/dL Albumin 3.0 L (3.2-5.2) gm/dL Triglycerides 61 (<150) mg/dl Calcium panel 12/24/17 Range/Units 03:51 Calcium 8.1 L (8.6-10.4) mg/dl Phosphorus 3.8 (2.7-4.5) mg/dL Albumin 3.0 L (3.2-5.2) gm/dL Pituitary panel 12/24/17 Range/Units 03:51 Sodium 136 (133-145) mmol/L Potassium 4.0 (3.3-5.1) mmol/L Chloride 103 (96-108) mmol/L Carbon Dioxide 21 L (22-30) mmol/L BUN 15 (8-23) mg/dl Creatinine 0.7 (0.6-1.1) mg/dl Glucose 149 H (70-105) mg/dL Calcium 8.1 L (8.6-10.4) mg/dl Adrenal panel 12/24/17 Range/Units 03:51 Sodium 136 (133-145) mmol/L Potassium 4.0 (3.3-5.1) mmol/L Chloride 103 (96-108) mmol/L Carbon Dioxide 21 L (22-30) mmol/L BUN 15 (8-23) mg/dl Creatinine 0.7 (0.6-1.1) mg/dl Glucose 149 H (70-105) mg/dL Calcium 8.1 L (8.6-10.4) mg/dl Total Bilirubin 0.3 (0.0-1.0) mg/dL AST 17 (0-37) U/l ALT 11 (0-40) U/l Alkaline Phosphatase 67 (39-117) U/L Total Protein 5.3 L (5.9-8.4) gm/dL Albumin 3.0 L (3.2-5.2) gm/dL Assessment and Plan (1) Ileostomy status Status: Acute Current Visit: Yes (2) Protein-calorie malnutrition, moderate Status: Acute Assessment and plan: Start PICC line in the morning for possible TPN as well as for central venous access for pressors Current Visit: No - Time Spent With Patient Total time spent is greater than 50% in coordination of care (as documented) at patient's floor/unit and/or counseling patient:
[2017-12-24] MEDS: HYDROmorphone 2 MG/ML VIAL IV PRN (22:12)
[2017-12-25] MEDS: HYDROmorphone 2 MG/ML VIAL IV PRN ×4 (03:20→20:12)
[2017-12-25] MEDS: metroNIDAZOLE 500 MG/100 ML BAG IV SCH ×3 (04:26→17:03)
[2017-12-25 05:15] LABS: Mean Cell Volume 78.6 fL (80.0-100.0); Mean Corpuscular HGB Conc 32.1 g/dL (31.0-36.0); Mean Corpuscular Hemoglobin 25.2 pg (26.0-34.0); Platelet Count 351 K/mcL (140-440); RBC 4.15 M/mcL (4.00-5.20); Red Cell Distribution Width 16.7 % (11.5-14.5)
[2017-12-25] MEDS: PIPERACILLIN SODIUM/TAZOBACTAM 3.375 GM in DEXTROSE 5% IN WATER 50 ML IV SCH ×4 (05:35→22:56)
[2017-12-25] MEDS: 0.9 % SODIUM CHLORIDE 10 ML SYRINGE IV SCH ×4 (05:35→20:58)
[2017-12-25 05:42] LABS: ALT/SGPT 15 U/l (0-40); Albumin 2.6 gm/dL (3.2-5.2); Albumin/Globulin Ratio 1.2 (1.0-2.3); Alkaline Phosphatase 62 U/L (39-117); Bilirubin,Direct 0.7 mg/dL (0.0-0.3); Blood Urea Nitrogen 12 mg/dl (8-23); Gamma Glutamyl Transpeptidase 53 U/L (5-36); Uric Acid 3.7 mg/dL (2.5-8.0)
[2017-12-25] MEDS: 0.9 % SODIUM CHLORIDE 250 ML IV SCH ×2 (06:30→12:50)
[2017-12-25 06:58] LABS: Anisocytosis 1+ (NONE SEEN); Band Neutrophils % 1 % (0-10); Basophils % (Manual) 1 % (0-2); Hypochromasia 1+ (NONE SEEN); Lymphocytes % 2 % (15-49); Monocytes % (Manual) 2 % (1-12); Platelet Estimate NORMAL (NORMAL); Segmented Neutrophils % 94 % (38-78)
[2017-12-25] MEDS: ACETAMINOPHEN 1,000 MG/100 ML BOTTLE IV PRN (07:33)
[2017-12-25] MEDS: PANTOPRAZOLE 40 MG VIAL IV SCH ×2 (07:33→16:56)
--- NOTE | 2017-12-25 08:24 | XRay Report ---
CLINICAL INFORMATION: Dyspnea on mechanical ventilation COMPARISON: 12/24/2017 FINDINGS: Lines and tubes are in stable satisfactory position. Cardiomediastinal silhouette and pulmonary vessels are normal. Dense consolidated atelectasis left lower lobe - retrocardiac region with small left pleural effusion has worsened. Moderate patchy right basilar infiltrate also worsening. IMPRESSION: Densely consolidated left lower lobe atelectasis with small effusion - worsening Moderate patchy infiltrate or atelectasis right base worsening Interpreted and Authenticated by: Valentin Torres 12/25/17
[2017-12-25] MEDS ORDERED: FUROSEMIDE 20 MG/2 ML VIAL IV ONE (08:46)
[2017-12-25] MEDS: CHLORHEXIDINE GLUCONATE 1 ML ORAL.SOL SWABMOUTH SCH ×2 (09:42→20:57)
--- NOTE | 2017-12-25 09:49 | Internal Med Progress Note ---
Medical - PN: Subj Patient information: Note initiated : 12/25/17 at 9:46 am Service Date, if different from initiated Date: [] Patient: Caroline Bellamy a 77 y/o F admitted on 12/23/17 for Ileostomy Closure and Colorectal Anastomosis. Chief Complaint: [] Interval history: Ms. Adiel Cardoso is a 77 year old F with a complex history with hospitalization May 2017 with diverticulitis perforation/peritonitis and prolonged hospital stay. 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 Hospitalization course was complicated by respiratory failure requiring mechanical ventilation and intra-abdominal infection with Pseudomonas. She underwent rehabilitation/TPN and prolonged hospitalization and was gradually recovering. She she now underwent expiratory laparotomy with extensive epidural lysis and small bowel resection. Postoperatively patient was unable to be extubated. Subsequently hospitalist service was consulted and patient was brought into the ICU on mechanical ventilation. patient currently on propofol/fentanyl. No family members available. systolics around 100. Patient has a line. Foleys catheter draining clear urine December 24-patient on mechanical ventilation. Map at 65 on 5 mics Levophed. Improving urine output. On light sedation. Weaning ventilator down to FiO2 35% , ABG 7.47/31/147. chest imaging revealed moderate left and small to moderat bibasilar infiltrate/effusion worsening since previous day. on Zosyn/Flagyl. Continue propofol/fentanyl for sedation. Start sedation holiday in a.m. for possible extubation. Continue weaning vasopressors. December 25- [place] [address]. Off vasopressors, T MAX 100, no chills. No anxiety, responding to verbal commands, on SBT/sedation holiday, Interval chest iamging shows atelectasis and pl effusion. alert. stable renal function. Diminishing urine output. A line and central line no localized bleeding or redness. No telemetry events. Possible extubation today.ABG 7.35/38/96 on 35% FiO2 and PEEP 5 - Constitutional Vitals: Vital Signs Temp Pulse Resp BP Pulse Ox 99 F 69 15 89/50 97 12/25/17 08:18 12/24/17 17:55 12/25/17 07:20 12/24/17 11:27 12/25/17 07:20 Period Temp Pulse Resp BP Sys/[place] Pulse Ox Last 24 Hr 98.4 F-100 F 65-81 10-24 83-89/50-52 91-100 Intake and Output 12/24/17 12/25/17 12/25/17 21:59 05:59 13:59 Intake Total 1436 / 1436 616 / 616 1390 / 1390 Output Total 635 / 635 325 / 325 Balance 801 / 801 291 / 291 1390 / 1390 Weight 145 lb 14.4 oz Intake & Output: Intake & Output 12/24/17 12/25/17 12/25/17 21:59 05:59 13:59 Intake Total 1436 / 1436 616 / 616 1390 / 1390 Output Total 635 / 635 325 / 325 Balance 801 / 801 291 / 291 1390 / 1390 Weight 145 lb 14.4 oz Intake: IV 1436 / 1436 616 / 616 1390 / 1390 Sodium Chloride 0.9% 1,000 ml @ 1000 / 1000 1000 / 1000 100 mls/hr IV .Q10H [facility] Rx#: [id number] Sodium Chloride 0.9% 250 ml @ 250 / 250 20 mls/hr IV .[id number] [facility] Rx#: [id number] OFIRMEV 1,000 mg In 100 ml @ 100 / 100 200 mls/hr IV Q6HP PRN Rx#: [id number] Levophed 16 mg In Sodium 31 / 31 67 / 67 12 / 12 Chloride 0.9% 234 ml @ 10 MCG/ MIN 9.37 mls/hr IV Q24H [facility] Rx# :[id number] Zosyn 3.375 gm In Dextrose 5% 50 / 50 50 / 50 50 / 50 in Water 50 ml @ 100 mls/hr IV Q6H [facility] Rx#:[id number] Diprivan 1,000 mg In Premix 1 82 / 82 49 / 49 16 / 16 Bag @ 5 MCG/KG/MIN 1.85 mls/hr IV .Q24H [facility] Rx#:[id number] fentaNYL 2,500 MCG In Sodium / 212 / 212 Chloride 0.9% 200 ml @ 12.5 MCG /HR 1.25 mls/hr IV Q24H [facility] Rx# :[id number] Output: Gastric Drainage 125 / 125 Left Nare 125 / 125 Urine Catheter Amount 510 / 510 325 / 325 Other: Stool Size Small Stool Color Brown Stool Consistency Liquid General appearance: no acute distress Exam: alert Nonlabored breathing urine output 30 cc an hour No telemetry events No anxiety Medical - PN: Obj Da - Labs CBC & Chem 7: 12/30/17 08:00 12/30/17 04:00 Labs: Abnormal Lab Results 12/25/17 12/25/17 12/24/17 04:10 04:10 03:51 WBC 23.3 H RBC Hgb 10.5 L Hct 32.6 L MCV 78.6 L MCH 25.2 L RDW 16.7 H Gran % Lymph % (Auto) Gran # Lymph # (Auto) Seg Neutrophils % 94 H Lymphocytes % 2 L Hypochromasia 1+ A Anisocytosis 1+ A Microcytosis 1+ A Chloride 109 H Carbon Dioxide 19 L 21 L Glucose 108 H 149 H Calcium 7.9 L 8.1 L Total Bilirubin 1.2 H Direct Bilirubin 0.7 H GGT 53 H 37 H Total Protein 4.7 L 5.3 L Albumin 2.6 L 3.0 L Globulin 2.1 L 12/24/17 03:51 WBC 12.5 H RBC 3.83 L Hgb 9.6 L Hct 29.5 L MCV 77.0 L MCH 25.0 L RDW 15.5 H Gran % 85.2 H Lymph % (Auto) 4.4 L Gran # 10.7 H Lymph # (Auto) 0.6 L Seg Neutrophils % Lymphocytes % Hypochromasia Anisocytosis Microcytosis Chloride Carbon Dioxide Glucose Calcium Total Bilirubin Direct Bilirubin GGT Total Protein Albumin Globulin Meds: Medications Chlorhexidine Gluconate (Peridex) 15 ml SWABMOUTH BID [facility] Last Admin: 12/25/17 09:42 Dose: 15 ml Hydromorphone HCl (Dilaudid) 1 mg IV Q4HP PRN PRN Reason: PAIN LEVEL > 6 Last Admin: 12/25/17 03:20 Dose: 1 mg Metronidazole (Flagyl) 500 mg in 100 mls @ 100 mls/hr IV Q6H [facility] Last Infusion: 12/25/17 05:36 Dose: Infused Sodium Chloride (Sodium Chloride 0.9%) 1,000 mls @ 100 mls/hr IV .Q10H [facility] Last Infusion: 12/25/17 08:59 Dose: Infused Acetaminophen (Ofirmev) 1,000 mg in 100 mls @ 200 mls/hr IV Q6HP PRN PRN Reason: Pain Last Infusion: 12/25/17 08:34 Dose: Infused Piperacillin Sod/Tazobactam (Sod 3.375 gm/ Dextrose) 50 mls @ 100 mls/hr IV Q6H [facility] Last Infusion: 12/25/17 06:50 Dose: Infused Propofol 1,000 mg/ Premix 100 mls @ 1.85 mls/hr IV .Q24H [facility]; 5 MCG/KG/MIN PRN Reason: Protocol Last Titration: 12/25/17 06:30 Dose: 0 mcg/kg/min, 0 mls/hr Heparin Sodium/Sodium Chloride (Heparin/Ns) 500 mls @ 0 mls/hr IV .Q0M [facility]; KVO PRN Reason: Protocol Last Admin: 12/24/17 07:13 Dose: 4 mls/hr Norepinephrine Bitartrate 16 (mg/ Sodium Chloride) 250 mls @ 9.37 mls/hr IV Q24H [facility]; 10 MCG/MIN PRN Reason: Protocol Last Titration: 12/25/17 07:20 Dose: 0 mcg/min, 0 mls/hr Sodium Chloride (Sodium Chloride 0.9%) 250 mls @ 20 mls/hr IV .[id number] [facility] Last Admin: 12/25/17 06:30 Dose: 20 mls/hr Fentanyl 2,500 mcg/ Sodium (Chloride) 250 mls @ 1.25 mls/hr IV Q24H [facility]; 12.5 MCG/HR PRN Reason: Protocol Last Titration: 12/25/17 07:15 Dose: 50 mcg/hr, 5 mls/hr Ondansetron HCl (Zofran) 4 mg IV Q4HP PRN PRN Reason: Nausea And Vomiting Pantoprazole Sodium (Protonix) 40 mg IV BIDAC [facility] Last Admin: 12/25/17 07:33 Dose: 40 mg Promethazine HCl (Phenergan) 12.5 mg IV Q4HP PRN PRN Reason: Nausea And Vomiting Sodium Chloride (Saline Flush) 10 ml IV Q8 [facility] Last Admin: 12/25/17 05:35 Dose: Not Given Medical - PN: A/P - Time Spent With Patient Total time spent is greater than 50% in coordination of care (as documented) at patient's floor/unit and/or counseling patient: Greater than 35 minutes (critical care time) (1) On mechanically assisted ventilation Status: Acute Assessment and plan: * status post exploratory laparotomy. postop day 2-continue postop management per surgery hospitalist consult * mechanical ventilation-ongoing spontaneous breathing trial. Sedation holiday since a.m. Attempt to extubate today. assess rapid shallow breathing index. Blood gases favorable. * sepsis-White count 23,000. On broad antibiotic coverage. Secondary to peritonitis * Hypotension-currently off vasopressors. stable hemodynamics Plan * extubate if RSBI favorable * serial chest imaging/blood gas * on antibiotic coverage for surgery * initiate gentle diuresis to improve lung compliance * Aggressive pulmonary toilet postextubation Current Visit: Yes Medical - PN: Qual - VTE Deep Vein Thrombosis/Pulmonary Embolism Present on Admission: No Procedures - Arterial Line Size (Gauge): 20
[2017-12-25 10:17] LABS: RBC Morphology ABNORM (NORMAL)
[2017-12-25] MEDS: ONDANSETRON 4 MG/2 ML VIAL IV PRN ×2 (10:31→15:00)
[2017-12-25] MEDS ORDERED: 0.9 % SODIUM CHLORIDE 10 ML SYRINGE IV PRN (11:07)
--- NOTE | 2017-12-25 12:50 | XRay Report ---
CLINICAL INFORMATION: PICC PLACEMENT COMPARISON: 12/25/2017 FINDINGS: Cardiomediastinal silhouette and pulmonary vessels remain normal. Moderate consolidated atelectasis left base show slight improved aeration. Small left pleural effusion noted. Small of fluid is now seen in the medial right minor fissure. Mild patchy airspace disease right base unchanged. PICC line tip overlies the infrahepatic IVC. IMPRESSION: PICC line tip is distal. The nurses were instructed to withdraw the line 8 cm Consolidation atelectasis left lower lobe and patchy infiltrate in the right base essentially unchanged Interpreted and Authenticated by: Valentin Torres 12/25/17
[2017-12-25] MEDS: 0.9 % SODIUM CHLORIDE 1,000 ML IV SCH ×2 (12:51→16:56)
[2017-12-25] MEDS: NOREPINEPHRINE BITARTRATE 16 MG in 0.9 % SODIUM CHLORIDE 234 ML IV SCH (12:51)
--- NOTE | 2017-12-25 13:41 | Surgical Pathology Report ---
HISTOLOGY SPECIMEN MICROSCOPIC DIAGNOSIS SMALL INTESTINE, SEGMENTAL RESECTION: -- SMALL INTESTINE WITH NUMEROUS SEROSAL ADHESIONS. -- MARGINS VIABLE. (DMT:frank) PROCEDURAL IMPRESSION Extensive intra-abdominal adhesions; partial small bowel obstruction; small bowel inflammation. GROSS DESCRIPTION Received in formalin, is a cary-palma segment of colon with palma attached fat. It is received with both margins stapled. It is 21.4 cm in length and has an average diameter of 1.5 cm. The serosa is cary-palma. Approximately 5.0 cm from one margin there is a rough surfaced possibly adhesed area. This margin is inked black. Approximately 2.0 cm from the same margin there is a 1.5 cm transmural defect. The mucosa is palma with a normal plicated pattern. Grossly there are no candidate lymph nodes identified. [employer] sections submitted - three cassettes: A1 - margins; A2 - defect near possible cary-palma adhesions; A3 - random sections. (SCB:frank) Electronically Signed by: Montana Juarez M.D.
--- NOTE | 2017-12-25 14:28 | General Surgery Progress Note ---
Subjective Patient reports: feels better, pain is less, bowel movement, afebrile Narrative: Note initiated : 12/25/17 at 2:28 pm Service Date, if different from initiated Date: [] Patient: Caroline Bellamy 77 y/o F admitted on 12/23/17 for Ileostomy Closure and Colorectal Anastomosis. Chief Complaint: [Patient has gradually improved. She was able to be extubated earlier today and has excellent oxygenation on 3 L by nasal cannula. She does not complain of any chest discomfort or shortness of breath. Her abdominal pain is controlled. I discussed with her again my inability to free up her bowel enough to do an anastomosis and she seems to accept it at this time. There is a small amount of bilious drainage through her ileostomy. Her NG output is minimal with only 50 cc over the past 12 hours. Her white blood count has increased to 23,000 but her peak temperature was only 100 during the night. She is afebrile at this time.] Objective Temp Pulse Resp BP Pulse Ox 98.9 F 100 H 15 95/64 97 12/25/17 12:46 12/25/17 13:01 12/25/17 13:01 12/25/17 13:01 12/25/17 13:01 - Additional Data Intake & Output - Last 24 hours: Intake & Output 12/23/17 12/24/17 12/25/17 12/26/17 05:59 05:59 05:59 05:59 Intake Total 843 / 843 3879 / 3879 1452 / 1452 Output Total 480 / 480 1640 / 1640 705 / 705 Balance 363 / 363 2239 / 2239 747 / 747 Weight 136 lb 4 oz 145 lb 14.4 oz - General physical appearance well developed, well nourished, no distress, chronically ill - Eyes PERRL, normal ocular movement - ENT normal pinna, normal nares, normal mucosa, no hearing loss, no congestion - Neck no masses, no bruits, trachea midline, no lymphadectomy, no venous distension - Respiratory normal respiratory effort, clear to auscultation - Cardiovascular Cardiovascular exam: Present: normal rate and rhythm, RRR, +S1, +S2. Absent: JVD - Abdomen tender (Mild incisional tenderness; good active bowel sounds; no abdominal distention; incision looks good) - Integumentary no rash, no growths, no abnormal pigmentation - Neurologic normal coordination, normal sensation - Musculoskeletal normal gait, normal posture - Psychiatric oriented to time - Labs 12/25/17 04:10 12/25/17 04:10 Diabetes panel 12/25/17 Range/Units 04:10 Sodium 138 (133-145) mmol/L Potassium 3.7 (3.3-5.1) mmol/L Chloride 109 H (96-108) mmol/L Carbon Dioxide 19 L (22-30) mmol/L BUN 12 (8-23) mg/dl Creatinine 0.7 (0.6-1.1) mg/dl Glucose 108 H (70-105) mg/dL Calcium 7.9 L (8.6-10.4) mg/dl AST 27 (0-37) U/l ALT 15 (0-40) U/l Alkaline Phosphatase 62 (39-117) U/L Total Protein 4.7 L (5.9-8.4) gm/dL Albumin 2.6 L (3.2-5.2) gm/dL Triglycerides 48 (<150) mg/dl Calcium panel 12/25/17 Range/Units 04:10 Calcium 7.9 L (8.6-10.4) mg/dl Phosphorus 2.8 (2.7-4.5) mg/dL Albumin 2.6 L (3.2-5.2) gm/dL Pituitary panel 12/25/17 Range/Units 04:10 Sodium 138 (133-145) mmol/L Potassium 3.7 (3.3-5.1) mmol/L Chloride 109 H (96-108) mmol/L Carbon Dioxide 19 L (22-30) mmol/L BUN 12 (8-23) mg/dl Creatinine 0.7 (0.6-1.1) mg/dl Glucose 108 H (70-105) mg/dL Calcium 7.9 L (8.6-10.4) mg/dl Adrenal panel 12/25/17 Range/Units 04:10 Sodium 138 (133-145) mmol/L Potassium 3.7 (3.3-5.1) mmol/L Chloride 109 H (96-108) mmol/L Carbon Dioxide 19 L (22-30) mmol/L BUN 12 (8-23) mg/dl Creatinine 0.7 (0.6-1.1) mg/dl Glucose 108 H (70-105) mg/dL Calcium 7.9 L (8.6-10.4) mg/dl Total Bilirubin 1.2 H (0.0-1.0) mg/dL AST 27 (0-37) U/l ALT 15 (0-40) U/l Alkaline Phosphatase 62 (39-117) U/L Total Protein 4.7 L (5.9-8.4) gm/dL Albumin 2.6 L (3.2-5.2) gm/dL Assessment and Plan (1) Ileostomy status Status: Acute Current Visit: Yes (2) Protein-calorie malnutrition, moderate Status: Acute Assessment and plan: Start PICC line in the morning for TPN Current Visit: No - Time Spent With Patient Total time spent is greater than 50% in coordination of care (as documented) at patient's floor/unit and/or counseling patient:
[2017-12-25] MEDS ORDERED: TPN PER PHARMACY IV SCH (15:43)
[2017-12-25] MEDS ORDERED: NOREPINEPHRINE BITARTRATE 16 MG in 0.9 % SODIUM CHLORIDE 234 ML IV PRN (16:15)
[2017-12-25] MEDS: fentaNYL 2,500 MCG in 0.9 % SODIUM CHLORIDE 200 ML IV SCH (16:22)
[2017-12-25 16:37] LABS: Prealbumin 11.6 mg/dl (20-40)
[2017-12-25] MEDS: FAT EMULSION 20% 250 ML in PREMIX 1 BAG IV SCH (16:51)
[2017-12-25] MEDS ORDERED: CALCIUM GLUCONATE 5 MEQ, MAGNESIUM SULFATE 8.12 MEQ, SODIUM CHLORIDE 20 MEQ, POTASSIUM ... IV SCH (17:00)
[2017-12-25] MEDS: INSULIN LISPRO 1 UNIT/0.01 ML UNIT SQ SCH (17:03)
[2017-12-25 17:38] LABS: ALT/SGPT < 5 U/l (0-40); Albumin 2.3 gm/dL (3.2-5.2); Alkaline Phosphatase 56 U/L (39-117); Bilirubin,Direct 1.1 mg/dL (0.0-0.3); Blood Urea Nitrogen 14 mg/dl (8-23); Gamma Glutamyl Transpeptidase 63 U/L (5-36)
[2017-12-25] MEDS ORDERED: INSULIN LISPRO 1 UNIT/0.01 ML UNIT SQ SCH (18:00)
[2017-12-26] MEDS: INSULIN LISPRO 1 UNIT/0.01 ML UNIT SQ SCH ×4 (00:01→18:55)
[2017-12-26] MEDS: HYDROmorphone 2 MG/ML VIAL IV PRN ×2 (02:23→09:30)
[2017-12-26] MEDS: metroNIDAZOLE 500 MG/100 ML BAG IV SCH ×3 (04:22→11:22)
[2017-12-26] MEDS: 0.9 % SODIUM CHLORIDE 1,000 ML IV SCH ×3 (04:22→17:29)
[2017-12-26] MEDS: PIPERACILLIN SODIUM/TAZOBACTAM 3.375 GM in DEXTROSE 5% IN WATER 50 ML IV SCH ×4 (05:29→23:04)
[2017-12-26 05:53] LABS: Mean Cell Volume 78.8 fL (80.0-100.0); Mean Corpuscular Hemoglobin 25.2 pg (26.0-34.0); Platelet Count 237 K/mcL (140-440); RBC 3.83 M/mcL (4.00-5.20); Red Cell Distribution Width 17.3 % (11.5-14.5)
[2017-12-26 05:54] LABS: proBNP 687.1 pg/ml (0-450)
[2017-12-26 06:01] LABS: ALT/SGPT 15 U/l (0-40); Albumin 2.4 gm/dL (3.2-5.2); Albumin/Globulin Ratio 0.9 (1.0-2.3); Alkaline Phosphatase 48 U/L (39-117); Bilirubin,Direct 0.4 mg/dL (0.0-0.3); Blood Urea Nitrogen 19 mg/dl (8-23); Gamma Glutamyl Transpeptidase 59 U/L (5-36); Uric Acid 4.5 mg/dL (2.5-8.0)
[2017-12-26 07:02] LABS: Anisocytosis 1+ (NONE SEEN); Band Neutrophils % 2 % (0-10); Hypochromasia 1+ (NONE SEEN); Lymphocytes % 2 % (15-49); Monocytes % (Manual) 3 % (1-12); Platelet Estimate NORMAL (NORMAL); RBC Morphology ABNORM (NORMAL); Segmented Neutrophils % 93 % (38-78)
[2017-12-26] MEDS ORDERED: DEXTROSE 50% 50 ML VIAL IV PRN ×2 (07:59→16:50)
--- NOTE | 2017-12-26 08:54 | XRay Report ---
CLINICAL INFORMATION: Follow-up infiltrates COMPARISON: 12/25/2017 FINDINGS: Patient is now extubated.] The PICC line and NG tube are in stable satisfactory position.The heart is borderline enlarged, but stable. Mediastinum and pulmonary vessels are unremarkable. Dense consolidated atelectasis in the left lower lobe has progressed and moderate left pleural effusion also slight progression. Small infiltrate and/or atelectasis right base has improved however. There is a mall right pleural effusion IMPRESSION: Following extubation, moderate dense consolidated atelectasis left lower lobe with slight worsening moderate left pleural effusion Small region of infiltrate or atelectasis in the right base has improved with small right pleural effusion Interpreted and Authenticated by: Valentin Torres 12/26/17
[2017-12-26] MEDS: 0.9 % SODIUM CHLORIDE 250 ML IV SCH ×3 (09:26→17:09)
[2017-12-26] MEDS: CHLORHEXIDINE GLUCONATE 1 ML ORAL.SOL SWABMOUTH SCH ×2 (09:30→21:25)
[2017-12-26] MEDS: PANTOPRAZOLE 40 MG VIAL IV SCH ×2 (09:30→21:24)
[2017-12-26] MEDS: 0.9 % SODIUM CHLORIDE 10 ML SYRINGE IV SCH ×4 (09:32→23:16)
[2017-12-26] MEDS: ACETAMINOPHEN 1,000 MG/100 ML BOTTLE IV PRN (12:27)
--- NOTE | 2017-12-26 12:44 | General Surgery Progress Note ---
Subjective Patient reports: pain is less, bowel movement, other (PATIENT HAS DEVELOPED FECAL DRAINAGE FROM HER INCISION, SUGGESTING AN ENTERAL FISTULA . SHE IS COUNSELED FOR EMERGENCY LAPAROTOMY. ) Narrative: Note initiated : 12/26/17 at 12:41 pm Service Date, if different from initiated Date: [] Patient: Caroline Bellamy a 77 y/o F admitted on 12/23/17 for Ileostomy Closure and Colorectal Anastomosis. Chief Complaint: [ PATIENT DEVELOPED GREENISH FECULENT DRAINAGE FROM HER MID LINE INCISION. SHE AND HER FAMILY ARE COUNSELED ARE COUNSELED FOR LAPAROTOMY LEONIE. HER VITALS ARE STABLE. HER CXR SHOWS SLIGHT IMPROVEMENT. WBC IS DECREASED TO 10.8.] Objective Temp Pulse Resp BP Pulse Ox 99.9 F H 85 23 H 108/54 98 12/26/17 12:27 12/26/17 02:01 12/26/17 11:52 12/26/17 11:52 12/26/17 11:52 - Additional Data Intake & Output - Last 24 hours: Intake & Output 12/24/17 12/25/17 12/26/17 12/27/17 05:59 05:59 05:59 05:59 Intake Total 843 / 843 3879 / 3879 3271 / 3271 50 / 50 Output Total 480 / 480 1640 / 1640 1930 / 1930 Balance 363 / 363 2239 / 2239 1341 / 1341 50 / 50 Weight 136 lb 4 oz 145 lb 14.4 oz 148 lb 5.938 oz - Labs 12/26/17 04:00 12/26/17 04:00 Diabetes panel 12/25/17 12/26/17 Range/Units 15:00 04:00 Sodium 140 138 (133-145) mmol/L Potassium 3.5 3.6 (3.3-5.1) mmol/L Chloride 108 106 (96-108) mmol/L Carbon Dioxide 16 L 19 L (22-30) mmol/L BUN 14 19 (8-23) mg/dl Creatinine 1.0 1.1 (0.6-1.1) mg/dl Glucose 117 H 146 H (70-105) mg/dL Calcium 7.5 L 8.2 L (8.6-10.4) mg/dl AST 23 18 (0-37) U/l ALT < 5 15 (0-40) U/l Alkaline Phosphatase 56 48 (39-117) U/L Total Protein 4.7 L 5.0 L (5.9-8.4) gm/dL Albumin 2.3 L 2.4 L (3.2-5.2) gm/dL Triglycerides 45 64 (<150) mg/dl Calcium panel 12/25/17 12/26/17 Range/Units 15:00 04:00 Calcium 7.5 L 8.2 L (8.6-10.4) mg/dl Phosphorus 4.7 H 3.0 (2.7-4.5) mg/dL Albumin 2.3 L 2.4 L (3.2-5.2) gm/dL Pituitary panel 12/25/17 12/26/17 Range/Units 15:00 04:00 Sodium 140 138 (133-145) mmol/L Potassium 3.5 3.6 (3.3-5.1) mmol/L Chloride 108 106 (96-108) mmol/L Carbon Dioxide 16 L 19 L (22-30) mmol/L BUN 14 19 (8-23) mg/dl Creatinine 1.0 1.1 (0.6-1.1) mg/dl Glucose 117 H 146 H (70-105) mg/dL Calcium 7.5 L 8.2 L (8.6-10.4) mg/dl Adrenal panel 12/25/17 12/26/17 Range/Units 15:00 04:00 Sodium 140 138 (133-145) mmol/L Potassium 3.5 3.6 (3.3-5.1) mmol/L Chloride 108 106 (96-108) mmol/L Carbon Dioxide 16 L 19 L (22-30) mmol/L BUN 14 19 (8-23) mg/dl Creatinine 1.0 1.1 (0.6-1.1) mg/dl Glucose 117 H 146 H (70-105) mg/dL Calcium 7.5 L 8.2 L (8.6-10.4) mg/dl Total Bilirubin 1.5 H 0.7 (0.0-1.0) mg/dL AST 23 18 (0-37) U/l ALT < 5 15 (0-40) U/l Alkaline Phosphatase 56 48 (39-117) U/L Total Protein 4.7 L 5.0 L (5.9-8.4) gm/dL Albumin 2.3 L 2.4 L (3.2-5.2) gm/dL Assessment and Plan (1) Ileostomy status Status: Acute Current Visit: Yes (2) Protein-calorie malnutrition, moderate Status: Acute Assessment and plan: Start PICC line in the morning for TPN Current Visit: No (3) Enterocutaneous fistula Status: Acute Assessment and plan: PATIENT WILL HAVE URGENT LAPAROTOMY TODAY. Current Visit: Yes - Time Spent With Patient Total time spent is greater than 50% in coordination of care (as documented) at patient's floor/unit and/or counseling patient:
[2017-12-26] MEDS ORDERED: HEPARIN/NS 500 ML IV ONE (13:18)
[2017-12-26] MEDS ORDERED: MIDAZOLAM 5 MG/5 ML VIAL IV ONE (13:50)
[2017-12-26] MEDS ORDERED: ePHEDrine 50 MG/ML AMPUL IV ONE (13:50)
[2017-12-26] MEDS ORDERED: fentaNYL 100 MCG/2 ML VIAL IV ONE (13:50)
[2017-12-26] MEDS ORDERED: ONDANSETRON 4 MG/2 ML VIAL IV ONE (13:50)
[2017-12-26] MEDS ORDERED: PROPOFOL 200 MG/20 ML VIAL IV ONE (13:50)
[2017-12-26] MEDS ORDERED: DEXAMETHASONE 10 MG/ML VIAL IV ONE (13:50)
[2017-12-26] MEDS ORDERED: LIDOCAINE HCL/PF 100 MG/5 ML SYRINGE IV ONE (13:50)
[2017-12-26] MEDS ORDERED: SUCCINYLCHOLINE 20 MG/ML ML IV ONE (13:50)
[2017-12-26] MEDS ORDERED: ROCURONIUM 10 MG/ML ML IV ONE (13:50)
[2017-12-26] MEDS ORDERED: BACITRACIN 50,000 UNIT VIAL IR ONE (14:26)
[2017-12-26] MEDS ORDERED: fentaNYL 2,500 MCG in 0.9 % SODIUM CHLORIDE 200 ML IV SCH (16:00)
--- NOTE | 2017-12-26 16:00 | Internal Med Progress Note ---
Medical - PN: Subj Patient information: Note initiated : 12/26/17 at 3:57 pm Service Date, if different from initiated Date: [] Patient: Carolien Bellamy a 77 y/o F admitted on 12/23/17 for Ileostomy Closure and Colorectal Anastomosis. Chief Complaint: f/u respiratory failure, exploratory laparotomy Interval history: Ms. Adiel Cardoso is a 77 year old F with a complex history with hospitalization May 2017 with diverticulitis perforation/peritonitis and prolonged hospital stay. 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 Hospitalization course was complicated by respiratory failure requiring mechanical ventilation and intra-abdominal infection with Pseudomonas. She underwent rehabilitation/TPN and prolonged hospitalization and was gradually recovering. She she now underwent expiratory laparotomy with extensive epidural lysis and small bowel resection. Postoperatively patient was unable to be extubated. Subsequently hospitalist service was consulted and patient was brought into the ICU on mechanical ventilation. patient currently on propofol/fentanyl. No family members available. systolics around 100. Patient has a line. Foleys catheter draining clear urine December 24-patient on mechanical ventilation. Map at 65 on 5 mics Levophed. Improving urine output. On light sedation. Weaning ventilator down to FiO2 35% , ABG 7.47/31/147. chest imaging revealed moderate left and small to moderat bibasilar infiltrate/effusion worsening since previous day. on Zosyn/Flagyl. Continue propofol/fentanyl for sedation. Start sedation holiday in a.m. for possible extubation. Continue weaning vasopressors. December 25- [place] [id number]. Off vasopressors, T MAX 100, no chills. No anxiety, responding to verbal commands, on SBT/sedation holiday, Interval chest iamging shows atelectasis and pl effusion. alert. stable renal function. Diminishing urine output. A line and central line no localized bleeding or redness. No telemetry events. Possible extubation today.ABG 7.35/38/96 on 35% FiO2 and PEEP December 26-Successfully extubated yesterday morning. Remained stable overnight. The morning to try to eat or drink something. WBC decreased from 23K to 19K. However, late this morning, developed leakage of bowel contents through part of her abdominal incision. Taken back to the operating room for exploratory laparotomy. Will likely require mechanical ventilation postoperatively. - Constitutional Vitals: Vital Signs Temp Pulse Resp BP Pulse Ox 100.0 F H 98 H 19 101/60 99 12/26/17 13:12 12/26/17 12:31 12/26/17 13:31 12/26/17 13:31 12/26/17 12:31 Period Temp Pulse Resp BP Sys/[place] Pulse Ox Last 24 Hr 98.5 F-100.0 F 83-98 13-29 82-128/53-95 91-99 Intake and Output 12/26/17 12/26/17 12/26/17 05:59 13:59 21:59 Intake Total 1600 / 1600 1776 / 1776 Output Total 640 / 640 Balance 960 / 960 1776 / 1776 Intake & Output: Intake & Output 12/26/17 12/26/17 12/26/17 05:59 13:59 21:59 Intake Total 1600 / 1600 1776 / 1776 Output Total 640 / 640 Balance 960 / 960 1776 / 1776 Intake: IV 1500 / 1500 1776 / 1776 Sodium Chloride 0.9% 1,000 ml @ 1000 / 1000 947 / 947 100 mls/hr IV .Q10H [facility] Rx#: [id number] OFIRMEV 1,000 mg In 100 ml @ 100 / 100 200 mls/hr IV Q6HP PRN Rx#: [id number] Calcium Gluconate 5 Meq 629 / 629 Magnesium Sulfate 8.12 Meq Sodium Chloride 20 Meq Potassium Phosphate 20 Meq Infuvite Adult 10 ml Potassium Acetate 10 Meq In Clinimix 5%- 20% Solution 1,000 ml @ 30 mls/ hr IV Q24H [facility] Rx#:[id number] Intralipid 20% 250 ml In Premix 250 / 250 1 Bag @ 25 mls/hr IV Q24H [facility] Rx#:[id number] Zosyn 3.375 gm In Dextrose 5% 50 / 50 100 / 100 in Water 50 ml @ 100 mls/hr IV Q6H [facility] Rx#:[id number] Oral 100 / 100 Output: Gastric Drainage 270 / 270 Left Nare 270 / 270 Urine Catheter Amount 370 / 370 Other: Percent of Meal Consumed 100% Feeding Ability Independent Stool Size Small Stool Color Brown Stool Consistency Liquid Exam: General: Ill-appearing Chest: Unlabored, few scattered wheezes Cardiovascular: Regular Abdomen: Dressings in place, greenish bowel leakage present on dressings Neuro: Alert, oriented. Medical - PN: Obj Da - Labs CBC & Chem 7: 12/26/17 04:00 12/26/17 04:00 Labs: Abnormal Lab Results 12/26/17 12/26/17 12/25/17 04:00 04:00 15:00 WBC 19.8 H RBC 3.83 L Hgb 9.7 L Hct 30.2 L MCV 78.8 L MCH 25.2 L RDW 17.3 H Gran % Lymph % (Auto) Gran # Lymph # (Auto) Seg Neutrophils % 93 H Lymphocytes % 2 L RBC Morphology Abnorm A Hypochromasia 1+ A Anisocytosis 1+ A Microcytosis 1+ A Chloride Carbon Dioxide 19 L 16 L Glucose 146 H 117 H Calcium 8.2 L 7.5 L Phosphorus 4.7 H Magnesium 1.5 L Total Bilirubin 1.5 H Direct Bilirubin 0.4 H 1.1 H GGT 59 H 63 H NT-Pro-B Natriuret Pep 687.1 H Total Protein 5.0 L 4.7 L Albumin 2.4 L 2.3 L Globulin Albumin/Globulin Ratio 0.9 L Prealbumin 11.6 L 12/25/17 12/25/17 12/24/17 04:10 04:10 03:51 WBC 23.3 H RBC Hgb 10.5 L Hct 32.6 L MCV 78.6 L MCH 25.2 L RDW 16.7 H Gran % Lymph % (Auto) Gran # Lymph # (Auto) Seg Neutrophils % 94 H Lymphocytes % 2 L RBC Morphology Abnorm A Hypochromasia 1+ A Anisocytosis 1+ A Microcytosis 1+ A Chloride 109 H Carbon Dioxide 19 L 21 L Glucose 108 H 149 H Calcium 7.9 L 8.1 L Phosphorus Magnesium Total Bilirubin 1.2 H Direct Bilirubin 0.7 H GGT 53 H 37 H NT-Pro-B Natriuret Pep Total Protein 4.7 L 5.3 L Albumin 2.6 L 3.0 L Globulin 2.1 L Albumin/Globulin Ratio Prealbumin 12/24/17 03:51 WBC 12.5 H RBC 3.83 L Hgb 9.6 L Hct 29.5 L MCV 77.0 L MCH 25.0 L RDW 15.5 H Gran % 85.2 H Lymph % (Auto) 4.4 L Gran # 10.7 H Lymph # (Auto) 0.6 L Seg Neutrophils % Lymphocytes % RBC Morphology Hypochromasia Anisocytosis Microcytosis Chloride Carbon Dioxide Glucose Calcium Phosphorus Magnesium Total Bilirubin Direct Bilirubin GGT NT-Pro-B Natriuret Pep Total Protein Albumin Globulin Albumin/Globulin Ratio Prealbumin Meds: Medications Chlorhexidine Gluconate (Peridex) 15 ml SWABMOUTH BID [facility] Last Admin: 12/26/17 09:30 Dose: 15 ml Dextrose (Dextrose 50%) 25 ml IV UD PRN PRN Reason: Hypoglycemia Diagnostic Test (Pha) (Accu-Chek) 1 each FS Q6 [facility] Last Admin: 12/26/17 13:10 Dose: 1 each Heparin Sodium (Porcine) (Heparin Flush) 2 ml IV Q12 [facility] Last Admin: 12/26/17 09:31 Dose: 2 ml Hydromorphone HCl (Dilaudid) 1 mg IV Q4HP PRN PRN Reason: PAIN LEVEL > 6 Last Admin: 12/26/17 09:30 Dose: 1 mg Metronidazole (Flagyl) 500 mg in 100 mls @ 100 mls/hr IV Q6H [facility] Last Admin: 12/26/17 11:22 Dose: 100 mls/hr Sodium Chloride (Sodium Chloride 0.9%) 1,000 mls @ 100 mls/hr IV .Q10H [facility] Last Infusion: 12/26/17 13:50 Dose: 0 mls/hr Acetaminophen (Ofirmev) 1,000 mg in 100 mls @ 200 mls/hr IV Q6HP PRN PRN Reason: Pain Last Infusion: 12/26/17 13:00 Dose: Infused Piperacillin Sod/Tazobactam (Sod 3.375 gm/ Dextrose) 50 mls @ 100 mls/hr IV Q6H [facility] Last Infusion: 12/26/17 12:00 Dose: Infused Heparin Sodium/Sodium Chloride (Heparin/Ns) 500 mls @ 0 mls/hr IV .Q0M [facility]; KVO PRN Reason: Protocol Last Admin: 12/24/17 07:13 Dose: 4 mls/hr Sodium Chloride (Sodium Chloride 0.9%) 250 mls @ 20 mls/hr IV .[id number] [facility] Last Admin: 12/26/17 13:11 Dose: Not Given Fat Emulsion Intravenous 250 (ml/ Premix) 250 mls @ 25 mls/hr IV Q24H [facility] Last Infusion: 12/26/17 05:00 Dose: Infused Calcium Gluconate 5 meq/Magnesium Sulfate 8.12 meq/Sodium Chloride 20 meq/ Potassium Phosphate 20 meq/Multivitamins/Minerals 10 ml/Potassium Acetate 10 meq /Amino Acids 1,037.2981 mls @ 30 mls/hr IV Q24H [facility] Stop: 12/26/17 16:59 Last Infusion: 12/26/17 13:50 Dose: 0 mls/hr Norepinephrine Bitartrate 16 (mg/ Sodium Chloride) 250 mls @ 9.37 mls/hr IV Q24HP PRN; Protocol; 10 MCG/MIN PRN Reason: Hypotension Calcium Gluconate 5 meq/Magnesium Sulfate 8.12 meq/Sodium Chloride 20 meq/ Potassium Phosphate 30 meq/Multivitamins/Minerals 10 ml/Potassium Acetate 10 meq /Selenium 60 mcg/ Amino Acids 1,041.0708 mls @ 45 mls/hr IV Q23H [facility] Fentanyl 2,500 mcg/ Sodium (Chloride) 250 mls @ 2.5 mls/hr IV Q24H [facility]; 25 MCG/ HR PRN Reason: Protocol Insulin Human Lispro (Humalog) 0 unit SQ Q6 [facility] PRN Reason: Protocol Last Admin: 12/26/17 13:10 Dose: Not Given Ondansetron HCl (Zofran) 4 mg IV Q4HP PRN PRN Reason: Nausea And Vomiting Last Admin: 12/25/17 15:00 Dose: 4 mg Pantoprazole Sodium (Protonix) 40 mg IV BIDAC [facility] Last Admin: 12/26/17 09:30 Dose: 40 mg Promethazine HCl (Phenergan) 12.5 mg IV Q4HP PRN PRN Reason: Nausea And Vomiting Sodium Chloride (Saline Flush) 10 ml IV Q8 [facility] Last Admin: 12/26/17 13:30 Dose: 10 ml Sodium Chloride (Saline Flush) 10 ml IV UD PRN PRN Reason: FLUSH Sodium Chloride (Saline Flush) 10 ml IV Q12 [facility] Last Admin: 12/26/17 09:32 Dose: 10 ml Medical - PN: A/P - Time Spent With Patient Total time spent is greater than 50% in coordination of care (as documented) at patient's floor/unit and/or counseling patient: Greater than 35 minutes - Narrative A/P Narrative: 77-year-old female, status post exploratory laparotomy in attempt for ileostomy takedown after prior Clark's procedure last May. Unable to accomplish anastomosis due to friable tissues. Status post exploratory laparotomy. POD#3. Now back in the operating room secondary to bowel leak. Management per surgery. Hospitalist consult for postoperative respiratory failure and mechanical ventilation. Suspect she will also need ventilation after current exploratory laparotomy. Plan: We'll reassess after arrival back to the ICU, anticipate fentanyl and propofol for sedation, keeping her intubated overnight if she is unable to be extubated in the PACU and try breathing trials in the morning. ID: On broad-spectrum antibiotics for peritonitis. F/E/N: On TPN. Will need to pay close attention to volume status with attempts to extubate. Medical - PN: Qual - VTE Deep Vein Thrombosis/Pulmonary Embolism Present on Admission: No Procedures - Arterial Line Size (Gauge): 20
--- NOTE | 2017-12-26 16:09 | Brief Operative Note ---
Date of procedure: 12/26/17 Pre-op diagnosis: small bowel leak with fistula Post-op diagnosis: other (microperforation of small bowel with limited peritonitis) Procedure: EXPLORATORY LAPAROTOMY WITH CLOSURE OF SMALL BOWEL PERFORATION Grafts/Implants: No (J P DRAIN X 2) Anesthesia: GETA Findings: MICROPERFORATION OF AFFERENT LIMB OF SMALL BOWEL ANASTOMOSIS DISTAL TO THE ANASTOMOSIS Complications: none Surgeon: Amada Eubanks Estimated blood loss (cc): 15 Specimens Removed/Pathology: none sent Condition: stable Disposition: ICU
[2017-12-26] MEDS ORDERED: TPN PER PHARMACY IV SCH (16:50)
[2017-12-26] MEDS ORDERED: PROMETHAZINE 25 MG/ML VIAL IV PRN (16:50)
[2017-12-26] MEDS ORDERED: CALCIUM GLUCONATE 5 MEQ, MAGNESIUM SULFATE 8.12 MEQ, SODIUM CHLORIDE 20 MEQ, POTASSIUM ... IV SCH ×3 (17:00)
[2017-12-26] MEDS ORDERED: PROPOFOL 100 ML IV ONE (17:01)
[2017-12-26] MEDS: FAT EMULSION 20% 250 ML in PREMIX 1 BAG IV SCH (17:06)
[2017-12-26] MEDS: PROPOFOL 1,000 MG in PREMIX 1 BAG IV SCH (17:55)
[2017-12-26] MEDS ORDERED: INSULIN LISPRO 1 UNIT/0.01 ML UNIT SQ ONE (18:57)
[2017-12-26] MEDS: NOREPINEPHRINE BITARTRATE 16 MG in 0.9 % SODIUM CHLORIDE 234 ML IV PRN ×2 (19:15→21:27)
--- NOTE | 2017-12-26 19:28 | XRay Report ---
CLINICAL INFORMATION: Reason for Exam:ETT placement verification COMPARISON: 12/26/2017 FINDINGS: The replaced endotracheal tube tip is 17 mm above the ama. NG tube and right PICC line in stable satisfactory position. Mild cardiomegaly unchanged. Mediastinum and pulmonary vessels are normal. Moderate consolidated atelectasis of the left lower lobe with moderate left pleural effusion and moderate patchy infiltrate in the right lower/middle lobes with small right pleural effusions show slight progression IMPRESSION: Moderate consolidated atelectasis left lower lobe with small effusion and moderate patchy right lower/middle lobe infiltrate with small effusion - both worsening Endotracheal tip is 17 mm above the ama. Nurses were instructed withdraw the tube 1.5 cm Interpreted and Authenticated by: Valentin Torres 12/26/17
[2017-12-26] MEDS ORDERED: 0.9 % SODIUM CHLORIDE 10 ML SYRINGE IV SCH (21:00)
[2017-12-27] MEDS: metroNIDAZOLE 500 MG/100 ML BAG IV SCH ×5 (00:03→23:44)
[2017-12-27] MEDS: INSULIN LISPRO 1 UNIT/0.01 ML UNIT SQ SCH ×4 (00:10→17:13)
[2017-12-27] MEDS: PIPERACILLIN SODIUM/TAZOBACTAM 3.375 GM in DEXTROSE 5% IN WATER 50 ML IV SCH ×4 (04:50→22:52)
[2017-12-27 06:38] LABS: ALT/SGPT 10 U/l (0-40); Albumin/Globulin Ratio 0.7 (1.0-2.3); Alkaline Phosphatase 54 U/L (39-117); Bilirubin,Direct < 0.2 mg/dL (0.0-0.3); Blood Urea Nitrogen 22 mg/dl (8-23); Gamma Glutamyl Transpeptidase 52 U/L (5-36); Uric Acid 3.3 mg/dL (2.5-8.0)
[2017-12-27] MEDS: 0.9 % SODIUM CHLORIDE 250 ML IV SCH ×3 (07:35→16:39)
[2017-12-27] MEDS: 0.9 % SODIUM CHLORIDE 10 ML SYRINGE IV SCH ×3 (07:36→22:54)
[2017-12-27] MEDS: PANTOPRAZOLE 40 MG VIAL IV SCH ×2 (07:41→16:06)
[2017-12-27] MEDS: 0.9 % SODIUM CHLORIDE 1,000 ML IV SCH ×3 (07:42→22:53)
[2017-12-27 08:39] LABS: Mean Cell Volume 78.3 fL (80.0-100.0); Mean Corpuscular HGB Conc 32.6 g/dL (31.0-36.0); Mean Corpuscular Hemoglobin 25.5 pg (26.0-34.0); Platelet Count 228 K/mcL (140-440); RBC 3.23 M/mcL (4.00-5.20); Red Cell Distribution Width 16.6 % (11.5-14.5)
[2017-12-27] MEDS: CHLORHEXIDINE GLUCONATE 1 ML ORAL.SOL SWABMOUTH SCH ×2 (10:06→22:53)
--- NOTE | 2017-12-27 10:11 | General Surgery Progress Note ---
Subjective Patient reports: other (Patient is presently ventilated and sedated) Narrative: Note initiated : 12/27/17 at 10:08 am Service Date, if different from initiated Date: [] Patient: Caroline Bellamy 77 y/o F admitted on 12/23/17 for Ileostomy Closure and Colorectal Anastomosis. Chief Complaint: [She has done well throughout the night. Vital signs have been stable and she has been afebrile. Her chest is clear with ventilatory breaths. She does not have any abdominal distention. She has hypoactive bowel sounds. There is no bilious output through her drains which are in the area of the repair. Her drainage is serosanguineous and small in volume. There is no significant increase in peripheral edema noted. Her hemoglobin has drifted down some but this may be dilutional since she had minimal blood loss intraoperatively and there is no blood of any significance from her drains. Chest x-ray was not done today so it will be completed. Her white blood count is down to 10.3. Her phosphorus is 1.7] Objective Temp Pulse Resp BP Pulse Ox 97.7 F 63 14 119/70 100 12/27/17 08:00 12/27/17 08:00 12/27/17 08:00 12/27/17 07:34 12/27/17 08:00 - Additional Data Intake & Output - Last 24 hours: Intake & Output 12/25/17 12/26/17 12/27/17 12/28/17 05:59 05:59 05:59 05:59 Intake Total 3879 / 3879 3521 / 3521 3345 / 3345 177 / 177 Output Total 1640 / 1640 1930 / 1930 785 / 785 80 / 80 Balance 2239 / 2239 1591 / 1591 2560 / 2560 97 / 97 Weight 145 lb 14.4 oz 148 lb 5.938 oz 157 lb 10.088 oz - General physical appearance other (Sedated and ventilated) - Neck no masses, no bruits, trachea midline, no lymphadectomy, no venous distension - Respiratory normal expansion, normal respiratory effort, clear to percussion, clear to auscultation, other (Patient is standing ventilated) - Cardiovascular Cardiovascular exam: Present: normal rate and rhythm, RRR, +S1, +S2 - Abdomen non tender, bowel sounds (present), wound (There is minimal drainage in her incision), masses (none) - Labs 12/27/17 07:25 12/27/17 04:15 Diabetes panel 12/27/17 Range/Units 04:15 Sodium 138 (133-145) mmol/L Potassium 3.3 (3.3-5.1) mmol/L Chloride 111 H (96-108) mmol/L Carbon Dioxide 17 L (22-30) mmol/L BUN 22 (8-23) mg/dl Creatinine 0.7 (0.6-1.1) mg/dl Glucose 220 H (70-105) mg/dL Calcium 8.0 L (8.6-10.4) mg/dl AST 11 (0-37) U/l ALT 10 (0-40) U/l Alkaline Phosphatase 54 (39-117) U/L Total Protein 4.8 L (5.9-8.4) gm/dL Albumin 2.0 L (3.2-5.2) gm/dL Triglycerides 65 (<150) mg/dl Calcium panel 12/27/17 Range/Units 04:15 Calcium 8.0 L (8.6-10.4) mg/dl Phosphorus 1.7 L (2.7-4.5) mg/dL Albumin 2.0 L (3.2-5.2) gm/dL Pituitary panel 12/27/17 Range/Units 04:15 Sodium 138 (133-145) mmol/L Potassium 3.3 (3.3-5.1) mmol/L Chloride 111 H (96-108) mmol/L Carbon Dioxide 17 L (22-30) mmol/L BUN 22 (8-23) mg/dl Creatinine 0.7 (0.6-1.1) mg/dl Glucose 220 H (70-105) mg/dL Calcium 8.0 L (8.6-10.4) mg/dl Adrenal panel 12/27/17 Range/Units 04:15 Sodium 138 (133-145) mmol/L Potassium 3.3 (3.3-5.1) mmol/L Chloride 111 H (96-108) mmol/L Carbon Dioxide 17 L (22-30) mmol/L BUN 22 (8-23) mg/dl Creatinine 0.7 (0.6-1.1) mg/dl Glucose 220 H (70-105) mg/dL Calcium 8.0 L (8.6-10.4) mg/dl Total Bilirubin 0.4 (0.0-1.0) mg/dL AST 11 (0-37) U/l ALT 10 (0-40) U/l Alkaline Phosphatase 54 (39-117) U/L Total Protein 4.8 L (5.9-8.4) gm/dL Albumin 2.0 L (3.2-5.2) gm/dL Assessment and Plan (1) Ileostomy status Status: Acute Current Visit: Yes (2) Protein-calorie malnutrition, moderate Status: Acute Assessment and plan: Continue TPN and advance as tolerated Add potassium phosphate to correct electrolytes Current Visit: No (3) Enterocutaneous fistula Status: Acute Assessment and plan: No evidence of further leak at this time Current Visit: Yes - Time Spent With Patient Total time spent is greater than 50% in coordination of care (as documented) at patient's floor/unit and/or counseling patient:
[2017-12-27 10:28] LABS: Anisocytosis 1+ (NONE SEEN); Band Neutrophils % 1 % (0-10); Hypochromasia 1+ (NONE SEEN); Lymphocytes % 5 % (15-49); Monocytes % (Manual) 5 % (1-12); Platelet Estimate NORMAL (NORMAL); RBC Morphology ABNORM (NORMAL); Segmented Neutrophils % 89 % (38-78)
[2017-12-27] MEDS: POTASSIUM PHOSPHATE 40 MEQ in DEXTROSE 5% IN WATER 500 ML IV SCH ×2 (10:58→15:40)
[2017-12-27] MEDS: ALBUMIN HUMAN 25 GM/100 ML BAG IV SCH ×2 (12:31→17:13)
[2017-12-27] MEDS: HYDROmorphone 2 MG/ML VIAL IV PRN ×3 (12:31→19:18)
--- NOTE | 2017-12-27 12:49 | XRay Report ---
CLINICAL INFORMATION: On mechanical ventilation - dyspnea COMPARISON: None. FINDINGS: The endotracheal tip is now 3.6 cm above the ama in satisfactory position. NG and PICC line are in stable satisfactory position. Heart is mildly enlarged 11 by stable. Mediastinum and pulmonary vessels are normal. Moderate size region of consolidated atelectasis in the left base and small left pleural effusion showing slight improvement. Moderate patchy right basilar infiltrate has regressed, however. A small right pleural effusion noted IMPRESSION: Moderate left lower lobe atelectasis and small left pleural effusion - slightly improved. Moderate patchy right basilar infiltrate and small effusion slightly worsened Interpreted and Authenticated by: Valentin Torres 12/27/17
[2017-12-27] MEDS: ALBUTEROL SULFATE 2.5 MG/3 ML NEBULIZER NEB PRN ×2 (14:00→20:59)
[2017-12-27] MEDS ORDERED: FUROSEMIDE 20 MG/2 ML VIAL IV ONE ×3 (14:13→21:26)
[2017-12-27] MEDS: PROPOFOL 1,000 MG in PREMIX 1 BAG IV SCH (15:02)
[2017-12-27] MEDS ORDERED: fentaNYL 2,500 MCG in 0.9 % SODIUM CHLORIDE 200 ML IV SCH (16:00)
[2017-12-27] MEDS ORDERED: FAT EMULSION 20% 250 ML in PREMIX 1 BAG IV SCH (16:00)
[2017-12-27] MEDS ORDERED: CALCIUM GLUCONATE 5 MEQ, MAGNESIUM SULFATE 8.12 MEQ, SODIUM CHLORIDE 20 MEQ, POTASSIUM ... IV SCH (16:00)
[2017-12-27] MEDS ORDERED: BENZOCAINE 1 SPRAY BOTTLE TOPICAL ONE (18:55)
--- NOTE | 2017-12-27 20:19 | Internal Med Progress Note ---
Medical - PN: Subj Patient information: Note initiated : 12/27/17 at 8:17 pm Service Date, if different from initiated Date: [] Patient: Caroline Bellamy a 77 y/o F admitted on 12/23/17 for Ileostomy Closure and Colorectal Anastomosis. Chief Complaint: f/u resp failure Interval history: Ms. Adiel Cardoso is a 77 year old F with a complex history with hospitalization May 2017 with diverticulitis perforation/peritonitis and prolonged hospital stay. 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 Hospitalization course was complicated by respiratory failure requiring mechanical ventilation and intra-abdominal infection with Pseudomonas. She underwent rehabilitation/TPN and prolonged hospitalization and was gradually recovering. She she now underwent expiratory laparotomy with extensive epidural lysis and small bowel resection. Postoperatively patient was unable to be extubated. Subsequently hospitalist service was consulted and patient was brought into the ICU on mechanical ventilation. patient currently on propofol/fentanyl. No family members available. systolics around 100. Patient has a line. Foleys catheter draining clear urine December 24-patient on mechanical ventilation. Map at 65 on 5 mics Levophed. Improving urine output. On light sedation. Weaning ventilator down to FiO2 35% , ABG 7.47/31/147. chest imaging revealed moderate left and small to moderat bibasilar infiltrate/effusion worsening since previous day. on Zosyn/Flagyl. Continue propofol/fentanyl for sedation. Start sedation holiday in a.m. for possible extubation. Continue weaning vasopressors. December 25- [place] [address]. Off vasopressors, T MAX 100, no chills. No anxiety, responding to verbal commands, on SBT/sedation holiday, Interval chest iamging shows atelectasis and pl effusion. alert. stable renal function. Diminishing urine output. A line and central line no localized bleeding or redness. No telemetry events. Possible extubation today.ABG 7.35/38/96 on 35% FiO2 and PEEP December 26-Successfully extubated yesterday morning. Remained stable overnight. The morning to try to eat or drink something. WBC decreased from 23K to 19K. However, late this morning, developed leakage of bowel contents through part of her abdominal incision. Taken back to the operating room for exploratory laparotomy. Will likely require mechanical ventilation postoperatively. December 27-patient successfully underwent repair of small leak in the distal ileum yesterday. Remained intubated overnight. This morning during sedation vacation and spontaneous breathing trial, patient was saturating well on 35% room air, had good minute ventilation during the breathing trial. She is successfully extubated. We'll later, respirations became labored. She was receiving significant volumes of IV fluid with maintenance as well as supplements being infused. Responded well to low-dose furosemide with improvement in respiratory status. - Constitutional Vitals: Vital Signs Temp Pulse Resp BP Pulse Ox 98.7 F 100 H 19 123/61 99 12/27/17 19:04 12/27/17 17:30 12/27/17 19:30 12/27/17 19:04 12/27/17 19:30 Period Temp Pulse Resp BP Sys/[place] Pulse Ox Last 24 Hr 97.7 F-98.8 F 41-103 13-30 87-156/53-94 94-100 Intake and Output 12/27/17 12/27/17 12/27/17 05:59 13:59 21:59 Intake Total 1450 / 1450 375 / 375 1419 / 1419 Output Total 510 / 510 140 / 140 1445 / 1445 Balance 940 / 940 235 / 235 -26 / -26 Weight 157 lb 10.088 oz 166 lb 7.184 oz Patient Weight 12/28/17 05:59 Weight 166 lb 7.184 oz Intake & Output: Intake & Output 12/27/17 12/27/17 12/27/17 05:59 13:59 21:59 Intake Total 1450 / 1450 375 / 375 1419 / 1419 Output Total 510 / 510 140 / 140 1445 / 1445 Balance 940 / 940 235 / 235 -26 / -26 Weight 157 lb 10.088 oz 166 lb 7.184 oz Intake: IV 1450 / 1450 375 / 375 1419 / 1419 Sodium Chloride 0.9% 1,000 ml @ 1000 / 1000 660 / 660 100 mls/hr IV .Q10H [facility] Rx#: [id number] Sodium Chloride 0.9% 250 ml @ 250 / 250 96 / 96 20 mls/hr IV .[id number] [facility] Rx#: [id number] Levophed 16 mg In Sodium 25 / 25 Chloride 0.9% 234 ml @ 10 MCG/ MIN 9.37 mls/hr IV Q24H PRN Rx# :[id number] Zosyn 3.375 gm In Dextrose 5% 100 / 100 50 / 50 50 / 50 in Water 50 ml @ 100 mls/hr IV Q6H [facility] Rx#:[id number] Potassium Phosphate 40 Meq In 509 / 509 Dextrose 5% in Water 500 ml @ 127.273 mls/hr IV Q4H [facility] Rx#: [id number] Output: Gastric Drainage 75 / 75 Left Nare 75 / 75 Drainage 60 / 60 35 / 35 RIDDHI A 50 / 50 20 / 20 RIDDHI B 15 15 Urine Catheter Amount 440 / 440 140 / 140 1335 / 1335 Other: Stool Size Small Stool Color Brown Green Stool Consistency Liquid Exam: General: At time of exam, intubated, sedated Chest: Bit diminished at bases, otherwise clear, no wheezing while on the ventilator Cardiovascular: Regular Abdomen: Dressings in place, diminished bowel sounds Neuro: Initially sedated, then awake, alert and following commands. Medical - PN: Obj Da - Labs CBC & Chem 7: 12/27/17 07:25 12/27/17 04:15 Labs: Abnormal Lab Results 12/27/17 12/27/17 12/26/17 07:25 04:15 04:00 WBC RBC 3.23 L Hgb 8.2 L Hct 25.3 L MCV 78.3 L MCH 25.5 L RDW 16.6 H Seg Neutrophils % 89 H Lymphocytes % 5 L RBC Morphology Abnorm A Hypochromasia 1+ A Anisocytosis 1+ A Microcytosis 1+ A Chloride 111 H Carbon Dioxide 17 L 19 L Glucose 220 H 146 H Calcium 8.0 L 8.2 L Phosphorus 1.7 L Magnesium Total Bilirubin Direct Bilirubin 0.4 H GGT 52 H 59 H NT-Pro-B Natriuret Pep 687.1 H Total Protein 4.8 L 5.0 L Albumin 2.0 L 2.4 L Globulin Albumin/Globulin Ratio 0.7 L 0.9 L Prealbumin 12/26/17 12/25/17 12/25/17 04:00 15:00 04:10 WBC 19.8 H RBC 3.83 L Hgb 9.7 L Hct 30.2 L MCV 78.8 L MCH 25.2 L RDW 17.3 H Seg Neutrophils % 93 H Lymphocytes % 2 L RBC Morphology Abnorm A Hypochromasia 1+ A Anisocytosis 1+ A Microcytosis 1+ A Chloride 109 H Carbon Dioxide 16 L 19 L Glucose 117 H 108 H Calcium 7.5 L 7.9 L Phosphorus 4.7 H Magnesium 1.5 L Total Bilirubin 1.5 H 1.2 H Direct Bilirubin 1.1 H 0.7 H GGT 63 H 53 H NT-Pro-B Natriuret Pep Total Protein 4.7 L 4.7 L Albumin 2.3 L 2.6 L Globulin 2.1 L Albumin/Globulin Ratio Prealbumin 11.6 L 12/25/17 04:10 WBC 23.3 H RBC Hgb 10.5 L Hct 32.6 L MCV 78.6 L MCH 25.2 L RDW 16.7 H Seg Neutrophils % 94 H Lymphocytes % 2 L RBC Morphology Abnorm A Hypochromasia 1+ A Anisocytosis 1+ A Microcytosis 1+ A Chloride Carbon Dioxide Glucose Calcium Phosphorus Magnesium Total Bilirubin Direct Bilirubin GGT NT-Pro-B Natriuret Pep Total Protein Albumin Globulin Albumin/Globulin Ratio Prealbumin Microbiology 12/26/17 22:35 Gram Stain - Final Sputum - Nasal Trachea Suctioned Meds: Medications Albuterol Sulfate (Ventolin) 2.5 mg NEB Q2HP PRN PRN Reason: Shortness Of Breath Last Admin: 12/27/17 14:00 Dose: 2.5 mg Chlorhexidine Gluconate (Peridex) 15 ml SWABMOUTH BID [facility] Last Admin: 12/27/17 10:06 Dose: 15 ml Dextrose (Dextrose 50%) 25 ml IV UD PRN PRN Reason: Hypoglycemia Diagnostic Test (Pha) (Accu-Chek) 1 each FS Q6 [facility] Last Admin: 12/27/17 17:13 Dose: 1 each Glucose Oxid/Lactoperoxid/Muramidas (Biotene) 1 each TOPICAL PRN PRN PRN Reason: Dry Mouth Heparin Sodium (Porcine) (Heparin Flush) 2 ml IV Q12 [facility] Last Admin: 12/27/17 09:14 Dose: Not Given Hydromorphone HCl (Dilaudid) 1 mg IV Q4HP PRN PRN Reason: PAIN LEVEL > 6 Last Admin: 12/27/17 19:18 Dose: 1 mg Propofol 1,000 mg/ Premix 100 mls @ 2.01 mls/hr IV .Q24H [facility]; 5 MCG/KG/MIN PRN Reason: Protocol Last Admin: 12/27/17 15:02 Dose: Not Given Fentanyl 2,500 mcg/ Sodium (Chloride) 250 mls @ 2.5 mls/hr IV Q24H [facility]; 25 MCG/ HR PRN Reason: Protocol Last Admin: 12/27/17 15:02 Dose: Not Given Heparin Sodium/Sodium Chloride (Heparin/Ns) 500 mls @ 0 mls/hr IV .Q0M [facility]; KVO PRN Reason: Protocol Metronidazole (Flagyl) 500 mg in 100 mls @ 100 mls/hr IV Q6H [facility] Last Infusion: 12/27/17 14:18 Dose: Infused Norepinephrine Bitartrate 16 (mg/ Sodium Chloride) 250 mls @ 9.37 mls/hr IV Q24H PRN; Protocol; 10 MCG/MIN PRN Reason: Hypotension Last Titration: 12/27/17 06:49 Dose: 0 mcg/min, 0 mls/hr Sodium Chloride (Sodium Chloride 0.9%) 1,000 mls @ 100 mls/hr IV .Q10H [facility] Last Infusion: 12/27/17 14:18 Dose: 0 mls/hr Sodium Chloride (Sodium Chloride 0.9%) 250 mls @ 20 mls/hr IV .[id number] [facility] Last Admin: 12/27/17 16:39 Dose: Not Given Acetaminophen (Ofirmev) 1,000 mg in 100 mls @ 200 mls/hr IV Q6HP PRN PRN Reason: Pain Piperacillin Sod/Tazobactam (Sod 3.375 gm/ Dextrose) 50 mls @ 100 mls/hr IV Q6H [facility] Last Infusion: 12/27/17 16:38 Dose: Infused Calcium Gluconate 5 meq/Magnesium Sulfate 8.12 meq/Sodium Chloride 20 meq/ Potassium Phosphate 40 meq/Multivitamins/Minerals 10 ml/Potassium Acetate 20 meq /Selenium 60 mcg/ Amino Acids 1,048.3435 mls @ 45 mls/hr IV Q23H [facility] Last Admin: 12/27/17 15:40 Dose: 45 mls/hr Albumin Human (Buminate) 25 gm in 100 mls @ 200 mls/hr IV Q6 [facility] Stop: 12/31/17 06:29 Last Admin: 12/27/17 17:13 Dose: 100 mls/hr Fat Emulsion Intravenous 250 (ml/ Premix) 250 mls @ 25 mls/hr IV TuThSa@1600 [facility] Insulin Human Lispro (Humalog) 0 unit SQ Q6 [facility] PRN Reason: Protocol Last Admin: 12/27/17 17:13 Dose: 2 unit Ondansetron HCl (Zofran) 4 mg IV Q4HP PRN PRN Reason: Nausea And Vomiting Pantoprazole Sodium (Protonix) 40 mg IV BIDAC [facility] Last Admin: 12/27/17 16:06 Dose: 40 mg Promethazine HCl (Phenergan) 12.5 mg IV Q4HP PRN PRN Reason: Nausea And Vomiting Sodium Chloride (Saline Flush) 10 ml IV UD PRN PRN Reason: FLUSH Sodium Chloride (Saline Flush) 10 ml IV Q8 [facility] Last Admin: 12/27/17 14:49 Dose: Not Given - Imaging and cardiology Chest x-ray Status: image reviewed by me Additional comments: IMPRESSION: Moderate left lower lobe atelectasis and small left pleural effusion - slightly improved. Moderate patchy right basilar infiltrate and small effusion slightly worsened Medical - PN: A/P - Time Spent With Patient Total time spent is greater than 50% in coordination of care (as documented) at patient's floor/unit and/or counseling patient: Greater than 35 minutes - Narrative A/P Narrative: 77-year-old female, status post exploratory laparotomy in attempt for ileostomy takedown after prior Clark's procedure last May. Unable to accomplish anastomosis due to friable tissues. Status post exploratory laparotomy. POD#4 and POD#1. Management per surgery. Hospitalist consult for postoperative respiratory failure and mechanical ventilation. Successfully extubated late morning. Plan: Continue with aggressive pulmonary toilet, supplemental oxygen PRN; monitor fluid balance. ID: On broad-spectrum antibiotics for peritonitis. F/E/N: On TPN. Medical - PN: Qual - VTE Deep Vein Thrombosis/Pulmonary Embolism Present on Admission: No Procedures - Arterial Line Size (Gauge): 20
[2017-12-27] MEDS: LACTOPEROXI/GLUC OXID/POT THIO 1 EACH GEL..EA. TOPICAL PRN (23:53)
[2017-12-28] MEDS: INSULIN LISPRO 1 UNIT/0.01 ML UNIT SQ SCH ×4 (00:08→17:23)
[2017-12-28] MEDS: ALBUMIN HUMAN 25 GM/100 ML BAG IV SCH ×4 (01:05→17:23)
[2017-12-28] MEDS: HYDROmorphone 2 MG/ML VIAL IV PRN ×6 (01:19→21:00)
[2017-12-28] MEDS: ALBUTEROL SULFATE 2.5 MG/3 ML NEBULIZER NEB PRN ×5 (01:19→13:54)
[2017-12-28] MEDS: PIPERACILLIN SODIUM/TAZOBACTAM 3.375 GM in DEXTROSE 5% IN WATER 50 ML IV SCH ×4 (04:27→23:11)
[2017-12-28 04:50] LABS: Mean Cell Volume 78.1 fL (80.0-100.0); Mean Corpuscular HGB Conc 32.7 g/dL (31.0-36.0); Mean Corpuscular Hemoglobin 25.5 pg (26.0-34.0); Platelet Count 282 K/mcL (140-440); Red Cell Distribution Width 16.8 % (11.5-14.5)
[2017-12-28] MEDS: metroNIDAZOLE 500 MG/100 ML BAG IV SCH ×3 (04:59→17:59)
[2017-12-28 05:31] LABS: ALT/SGPT 9 U/l (0-40); Albumin 3.5 gm/dL (3.2-5.2); Albumin/Globulin Ratio 1.5 (1.0-2.3); Alkaline Phosphatase 39 U/L (39-117); Bilirubin,Direct 0.2 mg/dL (0.0-0.3); Blood Urea Nitrogen 23 mg/dl (8-23); Gamma Glutamyl Transpeptidase 56 U/L (5-36); Uric Acid 3.1 mg/dL (2.5-8.0)
[2017-12-28] MEDS ORDERED: FUROSEMIDE 20 MG/2 ML VIAL IV ONE ×3 (05:38→06:39)
[2017-12-28 05:45] LABS: Prealbumin 12.7 mg/dl (20-40)
[2017-12-28 06:21] LABS: Anisocytosis 1+ (NONE SEEN); Band Neutrophils % 1 % (0-10); Eosinophils % (Manual) 2 % (0-7); Hypochromasia 1+ (NONE SEEN); Lymphocytes % 7 % (15-49); Monocytes % (Manual) 6 % (1-12); Platelet Estimate NORMAL (NORMAL); RBC Morphology ABNORM (NORMAL); Segmented Neutrophils % 84 % (38-78)
[2017-12-28] MEDS: 0.9 % SODIUM CHLORIDE 10 ML SYRINGE IV SCH ×3 (06:56→21:03)
[2017-12-28] MEDS: 0.9 % SODIUM CHLORIDE 250 ML IV SCH (06:56)
[2017-12-28] MEDS: PANTOPRAZOLE 40 MG VIAL IV SCH ×2 (08:11→16:25)
--- NOTE | 2017-12-28 08:21 | XRay Report ---
HISTORY: Reason for Exam:Mechanically Ventilated FINDINGS: There are moderate sized infiltrates in both lungs with the greatest involvement in the lower lobes and around the marlene. There may be small bilateral pleural effusions. Heart does not appear to be enlarged. The right-sided PICC line, endotracheal tube and nasogastric tube remain well-positioned. No pneumothorax is present. Comparison with the prior exam from 12/27/17 shows the infiltrates have become slightly worse, especially in the right lower lobe. IMPRESSION: Diffuse bilateral infiltrates which have become somewhat worse Interpreted and Authenticated by: Varghese Reich 12/28/17
--- NOTE | 2017-12-28 10:08 | Internal Med Progress Note ---
Medical - PN: Subj Patient information: Note initiated : 12/28/17 at 10:05 am Service Date, if different from initiated Date: [] Patient: Caroline Bellamy a 77 y/o F admitted on 12/23/17 for Ileostomy Closure and Colorectal Anastomosis. Chief Complaint: f/u resp failure Interval history: Ms. Adiel Cardoso is a 77 year old F with a complex history with hospitalization May 2017 with diverticulitis perforation/peritonitis and prolonged hospital stay. 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 Hospitalization course was complicated by respiratory failure requiring mechanical ventilation and intra-abdominal infection with Pseudomonas. She underwent rehabilitation/TPN and prolonged hospitalization and was gradually recovering. She she now underwent expiratory laparotomy with extensive epidural lysis and small bowel resection. Postoperatively patient was unable to be extubated. Subsequently hospitalist service was consulted and patient was brought into the ICU on mechanical ventilation. patient currently on propofol/fentanyl. No family members available. systolics around 100. Patient has a line. Foleys catheter draining clear urine December 24-patient on mechanical ventilation. Map at 65 on 5 mics Levophed. Improving urine output. On light sedation. Weaning ventilator down to FiO2 35% , ABG 7.47/31/147. chest imaging revealed moderate left and small to moderat bibasilar infiltrate/effusion worsening since previous day. on Zosyn/Flagyl. Continue propofol/fentanyl for sedation. Start sedation holiday in a.m. for possible extubation. Continue weaning vasopressors. December 25- [place] [address]. Off vasopressors, T MAX 100, no chills. No anxiety, responding to verbal commands, on SBT/sedation holiday, Interval chest iamging shows atelectasis and pl effusion. alert. stable renal function. Diminishing urine output. A line and central line no localized bleeding or redness. No telemetry events. Possible extubation today.ABG 7.35/38/96 on 35% FiO2 and PEEP December 26-Successfully extubated yesterday morning. Remained stable overnight. The morning wanting to try to eat or drink something. WBC decreased from 23K to 19K. However, late this morning, developed leakage of bowel contents through part of her abdominal incision. Taken back to the operating room for exploratory laparotomy. Will likely require mechanical ventilation postoperatively. December 27-patient successfully underwent repair of small leak in the distal ileum yesterday. Remained intubated overnight. This morning during sedation vacation and spontaneous breathing trial, patient was saturating well on 35% room air, had good minute ventilation during the breathing trial. She is successfully extubated. We'll later, respirations became labored. She was receiving significant volumes of IV fluid with maintenance as well as supplements being infused. Responded well to low-dose furosemide with improvement in respiratory status. December 28-overnight, had recurrent respiratory distress, tachypnea, labored respirations with rales and wheezes. Responded to further furosemide about 1 AM. Had recurrent respiratory distress about 5:30 this morning. Respirations were labored, while on only 2 L nasal cannula, saturations are dropped from high 90s to low 90s. She had wheezes as well as rales on exam. Received 10 mg of IV furosemide with some urine output and mild improvement, however required BiPAP therapy. Receive further 20 mg of furosemide with brisk diuresis. Remains on BiPAP for respiratory support. Chest x-ray with worsening interstitial infiltrates. Exam also with significant jugular venous distention consistent with volume overload. Has been receiving albumin. - Constitutional Vitals: Vital Signs Temp Pulse Resp BP Pulse Ox 98.7 F 94 H 16 123/61 96 12/28/17 07:45 12/28/17 08:30 12/28/17 08:30 12/27/17 19:04 12/28/17 08:30 Period Temp Pulse Resp BP Sys/[place] Pulse Ox Last 24 Hr 97.9 F-98.8 F 63-109 13-36 110-130/61-75 91-100 Intake and Output 12/27/17 12/28/17 12/28/17 21:59 05:59 13:59 Intake Total 1519 / 1519 300 / 300 100 / 100 Output Total 1575 / 1575 2400 / 2400 1210 / 1210 Balance -56 / -56 -2100 / -2100 -1110 / -1110 Weight 166 lb 7.184 oz Intake & Output: Intake & Output 12/27/17 12/28/17 12/28/17 21:59 05:59 13:59 Intake Total 1519 / 1519 300 / 300 100 / 100 Output Total 1575 / 1575 2400 / 2400 1210 / 1210 Balance -56 / -56 -2100 / -2100 -1110 / -1110 Weight 166 lb 7.184 oz Intake: IV 1519 / 1519 300 / 300 100 / 100 Sodium Chloride 0.9% 1,000 ml @ 660 / 660 0 / 0 100 mls/hr IV .Q10H [facility] Rx#: [id number] Zosyn 3.375 gm In Dextrose 5% 50 / 50 100 / 100 in Water 50 ml @ 100 mls/hr IV Q6H [facility] Rx#:[id number] Potassium Phosphate 40 Meq In 509 / 509 Dextrose 5% in Water 500 ml @ 127.273 mls/hr IV Q4H [facility] Rx#: [id number] Output: Gastric Drainage 75 / 75 10 / 10 Left Nare 75 / 75 10 / 10 Drainage / 35 RIDDHI A RIDDHI B Urine Catheter Amount 1465 / 1465 2350 / 2350 1210 / 1210 Stool Other: Stool Size Small Small Stool Color Brown Brown Green Green Stool Consistency Liquid Exam: General: Ill-appearing, struggling to breathe Chest: Diffuse expiratory wheezes with prolonged expiratory phase, bilateral rales on exam (on BiPAP). Respirations labored. Cardiovascular: Regular, no murmur; JVP to angle of jaw when sitting upright. Abdomen: Soft, surgical dressings with packing that is brownish tinge (silver- based packing), wound bed looks dry with minimal exudate Neuro: Alert, speaking in few word sentences, moves all extremities Medical - PN: Obj Da - Labs CBC & Chem 7: 12/28/17 03:48 12/28/17 03:48 Labs: Abnormal Lab Results 12/28/17 12/28/17 12/28/17 07:50 03:48 03:48 WBC 13.1 H RBC 3.20 L Hgb 8.2 L Hct 25.0 L MCV 78.1 L MCH 25.5 L RDW 16.8 H Seg Neutrophils % 84 H Lymphocytes % 7 L RBC Morphology Abnorm A Hypochromasia 1+ A Anisocytosis 1+ A Microcytosis 1+ A Chloride Carbon Dioxide Glucose 123 H Calcium 8.4 L Phosphorus Magnesium Total Bilirubin Direct Bilirubin GGT 56 H NT-Pro-B Natriuret Pep 56380.0 H Total Protein Albumin Albumin/Globulin Ratio Prealbumin 12.7 L 12/27/17 12/27/17 12/26/17 07:25 04:15 04:00 WBC RBC 3.23 L Hgb 8.2 L Hct 25.3 L MCV 78.3 L MCH 25.5 L RDW 16.6 H Seg Neutrophils % 89 H Lymphocytes % 5 L RBC Morphology Abnorm A Hypochromasia 1+ A Anisocytosis 1+ A Microcytosis 1+ A Chloride 111 H Carbon Dioxide 17 L 19 L Glucose 220 H 146 H Calcium 8.0 L 8.2 L Phosphorus 1.7 L Magnesium Total Bilirubin Direct Bilirubin 0.4 H GGT 52 H 59 H NT-Pro-B Natriuret Pep 687.1 H Total Protein 4.8 L 5.0 L Albumin 2.0 L 2.4 L Albumin/Globulin Ratio 0.7 L 0.9 L Prealbumin 12/26/17 12/25/17 12/25/17 04:00 15:00 04:10 WBC 19.8 H RBC 3.83 L Hgb 9.7 L Hct 30.2 L MCV 78.8 L MCH 25.2 L RDW 17.3 H Seg Neutrophils % 93 H Lymphocytes % 2 L RBC Morphology Abnorm A Abnorm A Hypochromasia 1+ A Anisocytosis 1+ A Microcytosis 1+ A Chloride Carbon Dioxide 16 L Glucose 117 H Calcium 7.5 L Phosphorus 4.7 H Magnesium 1.5 L Total Bilirubin 1.5 H Direct Bilirubin 1.1 H GGT 63 H NT-Pro-B Natriuret Pep Total Protein 4.7 L Albumin 2.3 L Albumin/Globulin Ratio Prealbumin 11.6 L Meds: Medications Albuterol Sulfate (Ventolin) 2.5 mg NEB Q2HP PRN PRN Reason: Shortness Of Breath Last Admin: 12/28/17 06:20 Dose: 2.5 mg Chlorhexidine Gluconate (Peridex) 15 ml SWABMOUTH BID [facility] Last Admin: 12/27/17 22:53 Dose: 15 ml Dextrose (Dextrose 50%) 25 ml IV UD PRN PRN Reason: Hypoglycemia Diagnostic Test (Pha) (Accu-Chek) 1 each FS Q6 [facility] Last Admin: 12/28/17 06:55 Dose: 1 each Furosemide (Lasix) 20 mg IV Q8H [facility] Stop: 12/30/17 07:01 Glucose Oxid/Lactoperoxid/Muramidas (Biotene) 1 each TOPICAL PRN PRN PRN Reason: Dry Mouth Last Admin: 12/27/17 23:53 Dose: 1 each Heparin Sodium (Porcine) (Heparin Flush) 2 ml IV Q12 [facility] Last Admin: 12/27/17 21:37 Dose: Not Given Hydromorphone HCl (Dilaudid) 1 mg IV Q4HP PRN PRN Reason: PAIN LEVEL > 6 Last Admin: 12/28/17 08:09 Dose: 1 mg Propofol 1,000 mg/ Premix 100 mls @ 2.01 mls/hr IV .Q24H [facility]; 5 MCG/KG/MIN PRN Reason: Protocol Last Admin: 12/27/17 15:02 Dose: Not Given Fentanyl 2,500 mcg/ Sodium (Chloride) 250 mls @ 2.5 mls/hr IV Q24H [facility]; 25 MCG/ HR PRN Reason: Protocol Last Admin: 12/27/17 15:02 Dose: Not Given Heparin Sodium/Sodium Chloride (Heparin/Ns) 500 mls @ 0 mls/hr IV .Q0M [facility]; KVO PRN Reason: Protocol Metronidazole (Flagyl) 500 mg in 100 mls @ 100 mls/hr IV Q6H [facility] Last Infusion: 12/28/17 08:05 Dose: Infused Norepinephrine Bitartrate 16 (mg/ Sodium Chloride) 250 mls @ 9.37 mls/hr IV Q24H PRN; Protocol; 10 MCG/MIN PRN Reason: Hypotension Last Titration: 12/27/17 06:49 Dose: 0 mcg/min, 0 mls/hr Sodium Chloride (Sodium Chloride 0.9%) 1,000 mls @ 100 mls/hr IV .Q10H [facility] Last Infusion: 12/27/17 22:54 Dose: 100 mls/hr Sodium Chloride (Sodium Chloride 0.9%) 250 mls @ 20 mls/hr IV .[id number] [facility] Last Admin: 12/28/17 06:56 Dose: Not Given Acetaminophen (Ofirmev) 1,000 mg in 100 mls @ 200 mls/hr IV Q6HP PRN PRN Reason: Pain Piperacillin Sod/Tazobactam (Sod 3.375 gm/ Dextrose) 50 mls @ 100 mls/hr IV Q6H [facility] Last Infusion: 12/28/17 04:59 Dose: Infused Calcium Gluconate 5 meq/Magnesium Sulfate 8.12 meq/Sodium Chloride 20 meq/ Potassium Phosphate 40 meq/Multivitamins/Minerals 10 ml/Potassium Acetate 20 meq /Selenium 60 mcg/ Amino Acids 1,048.3435 mls @ 45 mls/hr IV Q23H [facility] Last Admin: 12/27/17 15:40 Dose: 45 mls/hr Albumin Human (Buminate) 25 gm in 100 mls @ 200 mls/hr IV Q6 [facility] Stop: 12/31/17 06:29 Last Admin: 12/28/17 06:55 Dose: Not Given Fat Emulsion Intravenous 250 (ml/ Premix) 250 mls @ 25 mls/hr IV TuThSa@1600 [facility] Insulin Human Lispro (Humalog) 0 unit SQ Q6 [facility] PRN Reason: Protocol Last Admin: 12/28/17 06:55 Dose: Not Given Ondansetron HCl (Zofran) 4 mg IV Q4HP PRN PRN Reason: Nausea And Vomiting Pantoprazole Sodium (Protonix) 40 mg IV BIDAC [facility] Last Admin: 12/28/17 08:11 Dose: 40 mg Promethazine HCl (Phenergan) 12.5 mg IV Q4HP PRN PRN Reason: Nausea And Vomiting Sodium Chloride (Saline Flush) 10 ml IV UD PRN PRN Reason: FLUSH Sodium Chloride (Saline Flush) 10 ml IV Q8 [facility] Last Admin: 12/28/17 06:56 Dose: 10 ml - Imaging and cardiology Chest x-ray Status: image reviewed by me Additional comments: IMPRESSION: Diffuse bilateral infiltrates which have become somewhat worse - ABG Interpretation ABG results: 7.44/39/83 on 0.30 FIO2, after 30 min BiPAP Medical - PN: A/P - Time Spent With Patient Total time: 40 min critical care time. - Narrative A/P Narrative: 77-year-old female, status post exploratory laparotomy in attempt for ileostomy takedown after prior Clark's procedure last May. Unable to accomplish anastomosis due to friable tissues. Status post exploratory laparotomy. POD#5 and POD#2. Management per surgery. Hospitalist consult for postoperative respiratory failure and mechanical ventilation. Successfully extubated late Thursday morning. Worsening hypoxic respiratory failure Thursday afternoon, improved after furosemide, worsened again overnight 2. On exam, evidence of volume overload, suspect final overload/ pulmonary edema secondary to albumin therapy and volume shifts. He is responding to furosemide. Plan: Add furosemide every 8 hours, follow intake and output, continue with albumin, monitor renal function and electrolytes with diuresis. Continue with BiPAP support as needed for work of breathing, continue with aggressive pulmonary toilet; supplemental oxygen as needed. Will recheck echocardiogram to reevaluate LV function ID: On broad-spectrum antibiotics for peritonitis. F/E/N: On TPN. Medical - PN: Qual - VTE Deep Vein Thrombosis/Pulmonary Embolism Present on Admission: No Procedures - Arterial Line Size (Gauge): 20
[2017-12-28] MEDS: ACETAMINOPHEN 1,000 MG/100 ML BOTTLE IV PRN (10:47)
[2017-12-28] MEDS: CHLORHEXIDINE GLUCONATE 1 ML ORAL.SOL SWABMOUTH SCH (11:30)
[2017-12-28] MEDS: FUROSEMIDE 20 MG/2 ML VIAL IV SCH ×2 (14:33→23:11)
--- NOTE | 2017-12-28 14:45 | General Surgery Progress Note ---
Subjective Patient reports: feels better, pain is less, flatus, bowel movement, fever Narrative: Note initiated : 12/28/17 at 2:43 pm Service Date, if different from initiated Date: [] Patient: Caroline Bellamy 77 y/o F admitted on 12/23/17 for Ileostomy Closure and Colorectal Anastomosis. Chief Complaint: [Patient had some respiratory difficulty last evening and has been placed on BiPAP therapy. She also had elevation of her proBNP 12,900 range. She is responding to combination of albumin and Lasix with a vigorous diuresis over 3000 cc so far today. Her oxygenation is well with the BiPAP. She is somewhat agitated with the BiPAP in place but otherwise stable. Her abdomen is benign and her incision looks good. There is no drainage through her incision. The Damien-De [place] Cruz drainage is serous and in small volumes. Her white blood count is 13.1 and her other electrolytes are normal.] Objective Temp Pulse Resp BP Pulse Ox 100.1 F H 105 H 20 123/61 97 12/28/17 13:15 12/28/17 14:05 12/28/17 14:05 12/27/17 19:04 12/28/17 12:45 - Additional Data Intake & Output - Last 24 hours: Intake & Output 12/26/17 12/27/17 12/28/17 12/29/17 05:59 05:59 05:59 05:59 Intake Total 3521 / 3521 3345 / 3345 2194 / 2194 959.0909 / 959.0909 Output Total 1930 / 1930 785 / 785 4115 / 4115 2580 / 2580 Balance 1591 / 1591 2560 / 2560 -1921 / -1921 -1620.9091 / -1620.9091 Weight 148 lb 5.938 oz 157 lb 10.088 oz 166 lb 7.184 oz 153 lb 0.013 oz - General physical appearance moderate distress, chronically ill - Eyes PERRL, normal ocular movement - ENT normal pinna, normal nares, normal mucosa, no hearing loss, no congestion - Neck no masses, no bruits, trachea midline, no lymphadectomy, other (JVD) - Respiratory other (COARSE TUBULAR BREATH SOUNDS BILATERALLY) - Cardiovascular Cardiovascular exam: Present: irregular rhythm, +S1, +S2, tachycardia - Abdomen tender, bowel sounds (HYPOACTIVE BREATH SOUNDS; ), wound (INCISION LOOKS GOOD) - Integumentary no rash, no growths, no abnormal pigmentation - Neurologic normal coordination, normal sensation - Musculoskeletal normal gait, normal posture - Psychiatric oriented to time, oriented to person, oriented to place, speech is normal, memory intact - Labs 12/28/17 03:48 12/28/17 03:48 Diabetes panel 12/28/17 Range/Units 03:48 Sodium 140 (133-145) mmol/L Potassium 3.8 (3.3-5.1) mmol/L Chloride 104 (96-108) mmol/L Carbon Dioxide 24 (22-30) mmol/L BUN 23 (8-23) mg/dl Creatinine 0.7 (0.6-1.1) mg/dl Glucose 123 H (70-105) mg/dL Calcium 8.4 L (8.6-10.4) mg/dl AST 10 (0-37) U/l ALT 9 (0-40) U/l Alkaline Phosphatase 39 (39-117) U/L Total Protein 5.9 (5.9-8.4) gm/dL Albumin 3.5 (3.2-5.2) gm/dL Triglycerides 46 (<150) mg/dl Calcium panel 12/28/17 Range/Units 03:48 Calcium 8.4 L (8.6-10.4) mg/dl Phosphorus 3.4 (2.7-4.5) mg/dL Albumin 3.5 (3.2-5.2) gm/dL Pituitary panel 12/28/17 Range/Units 03:48 Sodium 140 (133-145) mmol/L Potassium 3.8 (3.3-5.1) mmol/L Chloride 104 (96-108) mmol/L Carbon Dioxide 24 (22-30) mmol/L BUN 23 (8-23) mg/dl Creatinine 0.7 (0.6-1.1) mg/dl Glucose 123 H (70-105) mg/dL Calcium 8.4 L (8.6-10.4) mg/dl Adrenal panel 12/28/17 Range/Units 03:48 Sodium 140 (133-145) mmol/L Potassium 3.8 (3.3-5.1) mmol/L Chloride 104 (96-108) mmol/L Carbon Dioxide 24 (22-30) mmol/L BUN 23 (8-23) mg/dl Creatinine 0.7 (0.6-1.1) mg/dl Glucose 123 H (70-105) mg/dL Calcium 8.4 L (8.6-10.4) mg/dl Total Bilirubin 0.5 (0.0-1.0) mg/dL AST 10 (0-37) U/l ALT 9 (0-40) U/l Alkaline Phosphatase 39 (39-117) U/L Total Protein 5.9 (5.9-8.4) gm/dL Albumin 3.5 (3.2-5.2) gm/dL Assessment and Plan (1) Ileostomy status Status: Acute Assessment and plan: STOMA IS WORKING FINE NO BILIOUS DRAINAGE VIA RIDDHI DRAINS Current Visit: Yes (2) Protein-calorie malnutrition, moderate Status: Acute Assessment and plan: Continue TPN and advance as tolerated Add potassium phosphate to correct electrolytes Current Visit: No (3) Enterocutaneous fistula Status: Acute Assessment and plan: No evidence of further leak at this time Current Visit: Yes (4) Volume overload Status: Acute Assessment and plan: CONTINUE LASIX AND ALBUMIN INFUSION Current Visit: Yes - Time Spent With Patient Total time spent is greater than 50% in coordination of care (as documented) at patient's floor/unit and/or counseling patient:
[2017-12-28] MEDS ORDERED: CALCIUM GLUCONATE 5 MEQ, MAGNESIUM SULFATE 8.12 MEQ, SODIUM CHLORIDE 20 MEQ, POTASSIUM ... IV SCH (15:00)
[2017-12-28] MEDS ORDERED: LORazepam 2 MG/ML VIAL IV PRN (15:07)
[2017-12-28] MEDS: ONDANSETRON 4 MG/2 ML VIAL IV PRN (15:21)
[2017-12-28] MEDS: POLYVINYL ALCOHOL OPHTH DROPS 15ML BOTTLE OU PRN (15:43)
[2017-12-28 17:44] LABS: Blood Urea Nitrogen 24 mg/dl (8-23)
[2017-12-28] MEDS ORDERED: POTASSIUM CHLORIDE 40 MEQ in DEXTROSE 5% IN WATER 500 ML IV ONE (19:32)
[2017-12-28] MEDS ORDERED: POTASSIUM CHLORIDE 20 MEQ/10 ML VIAL IV ONE (20:22)
[2017-12-28] MEDS: 0.9 % SODIUM CHLORIDE 1,000 ML IV SCH (22:38)
[2017-12-29] MEDS: INSULIN LISPRO 1 UNIT/0.01 ML UNIT SQ SCH ×5 (00:24→23:49)
[2017-12-29] MEDS: ALBUMIN HUMAN 25 GM/100 ML BAG IV SCH ×4 (00:26→16:59)
[2017-12-29] MEDS: metroNIDAZOLE 500 MG/100 ML BAG IV SCH ×5 (00:27→23:42)
[2017-12-29] MEDS: HYDROmorphone 2 MG/ML VIAL IV PRN ×8 (00:27→20:00)
[2017-12-29] MEDS: PIPERACILLIN SODIUM/TAZOBACTAM 3.375 GM in DEXTROSE 5% IN WATER 50 ML IV SCH ×4 (05:05→22:48)
[2017-12-29 06:22] LABS: ALT/SGPT 14 U/l (0-40); Albumin 4.3 gm/dL (3.2-5.2); Albumin/Globulin Ratio 2.2 (1.0-2.3); Alkaline Phosphatase 56 U/L (39-117); Bilirubin,Direct 0.7 mg/dL (0.0-0.3); Blood Urea Nitrogen 21 mg/dl (8-23); Gamma Glutamyl Transpeptidase 135 U/L (5-36); Uric Acid 3.3 mg/dL (2.5-8.0)
[2017-12-29] MEDS: PANTOPRAZOLE 40 MG VIAL IV SCH ×2 (07:10→16:04)
[2017-12-29] MEDS: FUROSEMIDE 20 MG/2 ML VIAL IV SCH ×4 (07:10→23:44)
[2017-12-29] MEDS: 0.9 % SODIUM CHLORIDE 10 ML SYRINGE IV SCH ×3 (07:10→21:58)
[2017-12-29] MEDS ORDERED: CALCIUM GLUCONATE 5 MEQ, MAGNESIUM SULFATE 8.12 MEQ, SODIUM CHLORIDE 20 MEQ, POTASSIUM ... IV SCH ×2 (07:45→10:00)
--- NOTE | 2017-12-29 09:22 | XRay Report ---
HISTORY: Reason for Exam:follow up pulmonary infiltrates FINDINGS: There are moderate diffuse alveolar infiltrates throughout both lungs with the greatest consolidation in the lung bases. The involvement in the upper lobes has become worse since 12/18/17. Small bilateral pleural effusions are present. There is the nasogastric tube and endotracheal tube is been removed. There still a PICC line placed into the superior vena cava. No pneumothorax is present. IMPRESSION: Widespread infiltrates in both lungs which are becoming worse. This could be due to ARDS, pulmonary edema, pneumonia, atelectasis or combination of the above. Interpreted and Authenticated by: Varghese Reich 12/29/17
[2017-12-29] MEDS: ACETAMINOPHEN 1,000 MG/100 ML BOTTLE IV PRN ×3 (09:40→20:06)
[2017-12-29] MEDS: ONDANSETRON 4 MG/2 ML VIAL IV PRN (09:49)
[2017-12-29] MEDS: POLYVINYL ALCOHOL OPHTH DROPS 15ML BOTTLE OU PRN (13:51)
--- NOTE | 2017-12-29 14:01 | Internal Med Progress Note ---
Medical - PN: Subj Patient information: Note initiated : 12/29/17 at 1:58 pm Service Date, if different from initiated Date: [] Patient: Caroline Bellamy a 77 y/o F admitted on 12/23/17 for Ileostomy Closure and Colorectal Anastomosis. Chief Complaint: f/u respiratory failure Interval history: Ms. Adiel Cardoso is a 77 year old F with a complex history with hospitalization May 2017 with diverticulitis perforation/peritonitis and prolonged hospital stay. 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 Hospitalization course was complicated by respiratory failure requiring mechanical ventilation and intra-abdominal infection with Pseudomonas. She underwent rehabilitation/TPN and prolonged hospitalization and was gradually recovering. She she now underwent expiratory laparotomy with extensive epidural lysis and small bowel resection. Postoperatively patient was unable to be extubated. Subsequently hospitalist service was consulted and patient was brought into the ICU on mechanical ventilation. patient currently on propofol/fentanyl. No family members available. systolics around 100. Patient has a line. Foleys catheter draining clear urine December 24-patient on mechanical ventilation. Map at 65 on 5 mics Levophed. Improving urine output. On light sedation. Weaning ventilator down to FiO2 35% , ABG 7.47/31/147. chest imaging revealed moderate left and small to moderat bibasilar infiltrate/effusion worsening since previous day. on Zosyn/Flagyl. Continue propofol/fentanyl for sedation. Start sedation holiday in a.m. for possible extubation. Continue weaning vasopressors. December 25- [place] [id number]. Off vasopressors, T MAX 100, no chills. No anxiety, responding to verbal commands, on SBT/sedation holiday, Interval chest iamging shows atelectasis and pl effusion. alert. stable renal function. Diminishing urine output. A line and central line no localized bleeding or redness. No telemetry events. Possible extubation today.ABG 7.35/38/96 on 35% FiO2 and PEEP December 26-Successfully extubated yesterday morning. Remained stable overnight. The morning wanting to try to eat or drink something. WBC decreased from 23K to 19K. However, late this morning, developed leakage of bowel contents through part of her abdominal incision. Taken back to the operating room for exploratory laparotomy. Will likely require mechanical ventilation postoperatively. December 27-patient successfully underwent repair of small leak in the distal ileum yesterday. Remained intubated overnight. This morning during sedation vacation and spontaneous breathing trial, patient was saturating well on 35% room air, had good minute ventilation during the breathing trial. She is successfully extubated. We'll later, respirations became labored. She was receiving significant volumes of IV fluid with maintenance as well as supplements being infused. Responded well to low-dose furosemide with improvement in respiratory status. December 28-overnight, had recurrent respiratory distress, tachypnea, labored respirations with rales and wheezes. Responded to further furosemide about 1 AM. Had recurrent respiratory distress about 5:30 this morning. Respirations were labored, while on only 2 L nasal cannula, saturations are dropped from high 90s to low 90s. She had wheezes as well as rales on exam. Received 10 mg of IV furosemide with some urine output and mild improvement, however required BiPAP therapy. Receive further 20 mg of furosemide with brisk diuresis. Remains on BiPAP for respiratory support. Chest x-ray with worsening interstitial infiltrates. Exam also with significant jugular venous distention consistent with volume overload. Has been receiving albumin. December 29-patient continues on BiPAP. She is off for a while this morning, became dyspneic. Improved approximately 1-2 hours after morning furosemide dose. She tends to have more respiratory distress as the furosemide has worn off. Has been receiving furosemide every 8 hours with good diuresis. Renal functions remain stable. At one point was complaining to family that she did not want to keep going with therapy, though seems to improved later in the morning. - Constitutional Vitals: Vital Signs Temp Pulse Resp BP Pulse Ox 99.2 F H 104 H 23 H 141/74 97 12/29/17 12:00 12/29/17 13:00 12/29/17 13:00 12/29/17 08:05 12/29/17 13:00 Period Temp Pulse Resp BP Sys/[place] Pulse Ox Last 24 Hr 98.9 F-99.4 F 89-122 13-27 131-161/74-102 30-100 Intake and Output 12/28/17 12/29/17 12/29/17 21:59 05:59 13:59 Intake Total 350 / 350 250 / 250 500 / 500 Output Total 1170 / 1170 2690 / 2690 1770 / 1770 Balance -820 / -820 -2440 / -2440 -1270 / -1270 Weight 150 lb Intake & Output: Intake & Output 12/28/17 12/29/17 12/29/17 21:59 05:59 13:59 Intake Total 350 / 350 250 / 250 500 / 500 Output Total 1170 / 1170 2690 / 2690 1770 / 1770 Balance -820 / -820 -2440 / -2440 -1270 / -1270 Weight 150 lb Intake: IV 350 / 350 250 / 250 500 / 500 OFIRMEV 1,000 mg In 100 ml @ 100 / 100 200 mls/hr IV Q6HP PRN Rx#: [id number] Zosyn 3.375 gm In Dextrose 5% 50 / 50 50 / 50 100 / 100 in Water 50 ml @ 100 mls/hr IV Q6H KRISS Rx#:[id number] Output: Urine Catheter Amount 1170 / 1170 2690 / 2690 1770 / 1770 Other: # Emeses 1 Exam: General: In bed with BiPAP mask on Chest: Respirations are mildly labored at the time of my exam, asthma or rales are present. Cardiovascular: Regular, no peripheral edema. Jugular venous pressure is approximately 3 cm above the clavicle while sitting at 45. Normal respiratory pulsations are present. Abdomen: Soft, diminished bowel sounds. Neuro: Drowsy, arouses easily, generally weak Medical - PN: Obj Da - Labs CBC & Chem 7: 12/28/17 03:48 12/29/17 04:00 Labs: Abnormal Lab Results 12/29/17 12/29/17 12/29/17 10:13 04:00 04:00 WBC RBC Hgb Hct MCV MCH RDW Seg Neutrophils % Lymphocytes % RBC Morphology Hypochromasia Anisocytosis Microcytosis Chloride Carbon Dioxide 31 H BUN Glucose 136 H Calcium Phosphorus 2.1 L Total Bilirubin 1.4 H Direct Bilirubin 0.7 H GGT 135 H NT-Pro-B Natriuret Pep 38187.0 H Total Protein Albumin Globulin 2.0 L Albumin/Globulin Ratio Prealbumin 14.6 L 12/28/17 12/28/17 12/28/17 16:09 07:50 03:48 WBC RBC Hgb Hct MCV MCH RDW Seg Neutrophils % Lymphocytes % RBC Morphology Hypochromasia Anisocytosis Microcytosis Chloride Carbon Dioxide BUN 24 H Glucose 120 H 123 H Calcium 8.4 L 8.4 L Phosphorus Total Bilirubin Direct Bilirubin GGT 56 H NT-Pro-B Natriuret Pep 99398.0 H Total Protein Albumin Globulin Albumin/Globulin Ratio Prealbumin 12.7 L 12/28/17 12/27/17 12/27/17 03:48 07:25 04:15 WBC 13.1 H RBC 3.20 L 3.23 L Hgb 8.2 L 8.2 L Hct 25.0 L 25.3 L MCV 78.1 L 78.3 L MCH 25.5 L 25.5 L RDW 16.8 H 16.6 H Seg Neutrophils % 84 H 89 H Lymphocytes % 7 L 5 L RBC Morphology Abnorm A Abnorm A Hypochromasia 1+ A 1+ A Anisocytosis 1+ A 1+ A Microcytosis 1+ A 1+ A Chloride 111 H Carbon Dioxide 17 L BUN Glucose 220 H Calcium 8.0 L Phosphorus 1.7 L Total Bilirubin Direct Bilirubin GGT 52 H NT-Pro-B Natriuret Pep Total Protein 4.8 L Albumin 2.0 L Globulin Albumin/Globulin Ratio 0.7 L Prealbumin Meds: Medications Albuterol Sulfate (Ventolin) 2.5 mg NEB Q2HP PRN PRN Reason: Shortness Of Breath Last Admin: 12/28/17 13:54 Dose: 2.5 mg Artificial Tears (Artificial Tears Ophth Drops) 1 gtt OU QIDP PRN PRN Reason: Dry Eye(s) Last Admin: 12/29/17 13:51 Dose: 1 gtt Dextrose (Dextrose 50%) 25 ml IV UD PRN PRN Reason: Hypoglycemia Diagnostic Test (Pha) (Accu-Chek) 1 each FS Q6 KRISS Last Admin: 12/29/17 11:40 Dose: 1 each Furosemide (Lasix) 20 mg IV Q6 KRISS Stop: 12/31/17 06:01 Last Admin: 12/29/17 12:22 Dose: 20 mg Glucose Oxid/Lactoperoxid/Muramidas (Biotene) 1 each TOPICAL PRN PRN PRN Reason: Dry Mouth Last Admin: 12/27/17 23:53 Dose: 1 each Heparin Sodium (Porcine) (Heparin Flush) 2 ml IV Q12 KRISS Last Admin: 12/29/17 09:24 Dose: Not Given Hydromorphone HCl (Dilaudid) 1 mg IV Q2HP PRN PRN Reason: PAIN LEVEL > 6 Last Admin: 12/29/17 13:27 Dose: 1 mg Heparin Sodium/Sodium Chloride (Heparin/Ns) 500 mls @ 0 mls/hr IV .Q0M KRISS; KVO PRN Reason: Protocol Metronidazole (Flagyl) 500 mg in 100 mls @ 100 mls/hr IV Q6H [facility] Last Admin: 12/29/17 13:05 Dose: 100 mls/hr Norepinephrine Bitartrate 16 (mg/ Sodium Chloride) 250 mls @ 9.37 mls/hr IV Q24H PRN; Protocol; 10 MCG/MIN PRN Reason: Hypotension Last Titration: 12/27/17 06:49 Dose: 0 mcg/min, 0 mls/hr Acetaminophen (Ofirmev) 1,000 mg in 100 mls @ 200 mls/hr IV Q6HP PRN PRN Reason: Pain Last Infusion: 12/29/17 12:22 Dose: Infused Piperacillin Sod/Tazobactam (Sod 3.375 gm/ Dextrose) 50 mls @ 100 mls/hr IV Q6H [facility] Last Infusion: 12/29/17 12:24 Dose: Infused Albumin Human (Buminate) 25 gm in 100 mls @ 200 mls/hr IV Q6 [facility] Stop: 12/31/17 06:29 Last Infusion: 12/29/17 13:28 Dose: Infused Fat Emulsion Intravenous 250 (ml/ Premix) 250 mls @ 25 mls/hr IV TuThSa@1600 KRISS Calcium Gluconate 5 meq/Magnesium Sulfate 8.12 meq/Sodium Chloride 20 meq/ Potassium Phosphate 40 meq/Multivitamins/Minerals 10 ml/Selenium 60 mcg/ Potassium Chloride 30 meq/ Sodium Phosphate 15 mmol/ Amino Acids 1,058.3435 mls @ 55 mls/hr IV Q19H [facility] Last Admin: 12/29/17 12:08 Dose: 55 mls/hr Insulin Human Lispro (Humalog) 0 unit SQ Q6 [facility]ISS PRN Reason: Protocol Last Admin: 12/29/17 11:40 Dose: 2 unit Lorazepam (Ativan) 0.5 mg IV Q4HP PRN PRN Reason: ANXIETY/SEDATION Last Admin: 12/28/17 16:25 Dose: 0.5 mg Ondansetron HCl (Zofran) 4 mg IV Q4HP PRN PRN Reason: Nausea And Vomiting Last Admin: 12/29/17 09:49 Dose: 4 mg Pantoprazole Sodium (Protonix) 40 mg IV BIDAC [facility] Last Admin: 12/29/17 07:10 Dose: 40 mg Promethazine HCl (Phenergan) 12.5 mg IV Q4HP PRN PRN Reason: Nausea And Vomiting Sodium Chloride (Saline Flush) 10 ml IV UD PRN PRN Reason: FLUSH Sodium Chloride (Saline Flush) 10 ml IV Q8 [facility] Last Admin: 12/29/17 13:27 Dose: 10 ml - Impressions Echocardiogram from 12/28 Left ventricular systolic function is normal, EF 55-60%; unable to assess diastolic function The right ventricle is normal in size and function There is mild mitral regurgitation Estimated pulmonary artery pressures 40-45 with mild to moderate pulmonic valvular regurgitation. Moderate size left pleural effusion - Imaging and cardiology Chest x-ray Status: image reviewed by me Additional comments: IMPRESSION: Widespread infiltrates in both lungs which are becoming worse. This could be due to ARDS, pulmonary edema, pneumonia, atelectasis or combination of the above. Medical - PN: A/P - Time Spent With Patient Total time spent is greater than 50% in coordination of care (as documented) at patient's floor/unit and/or counseling patient: Greater than 35 minutes - Narrative A/P Narrative: 77-year-old female, status post exploratory laparotomy in attempt for ileostomy takedown after prior Clark's procedure last May. Unable to accomplish anastomosis due to friable tissues. Status post exploratory laparotomy. POD#6 and POD#3. Management per surgery. Hospitalist consult for postoperative respiratory failure and mechanical ventilation. Successfully extubated late Thursday morning. Worsening hypoxic respiratory failure Thursday afternoon, improved after furosemide, worsened again overnight Thursday 2. Thursday was diuresed, responding after each dose of furosemide. On exam Thursday, still has evidence of volume overload, suspect fluid overload/pulmonary edema secondary to volume shifts. Renal function is tolerating diuresis. Echocardiogram with good LV function. Plan: Increase furosemide to Q6hr with albumin, follow intake and output, continue with albumin, monitor renal function and electrolytes with diuresis. Continue with BiPAP support as needed for work of breathing, continue with aggressive pulmonary toilet; supplemental oxygen as needed. ID: On broad-spectrum antibiotics for peritonitis. F/E/N: On TPN. Medical - PN: Qual - VTE Deep Vein Thrombosis/Pulmonary Embolism Present on Admission: No Procedures - Arterial Line Size (Gauge): 20
[2017-12-29] MEDS ORDERED: BACITRACIN 50,000 UNIT VIAL IR ONE (15:32)
--- NOTE | 2017-12-29 15:43 | General Surgery Progress Note ---
Subjective Patient reports: feels better, still having pain, flatus, bowel movement, diarrhea, shortness of breath, afebrile Narrative: Note initiated : 12/29/17 at 3:41 pm Service Date, if different from initiated Date: [] Patient: Caroline Bellamy 77 y/o F admitted on 12/23/17 for Ileostomy Closure and Colorectal Anastomosis. Chief Complaint: [Patient has been having some modest respiratory difficulty but it has responded to continued diuresis. She has diuresed over 8 L over the past 2 days. Her chest x-ray still shows interstitial infiltrate. Her BNP increased from 12,000-24,000 which suggests that she is mobilizing her interstitial fluid volume. Continue diuresis should be effective in controlling this. She has good active bowel sounds and is putting out large volume of liquid stool.] Objective Temp Pulse Resp BP Pulse Ox 99.2 F H 94 H 15 108/71 96 12/29/17 12:00 12/29/17 15:00 12/29/17 15:00 12/29/17 13:46 12/29/17 15:00 - Additional Data Intake & Output - Last 24 hours: Intake & Output 12/27/17 12/28/17 12/29/17 12/30/17 05:59 05:59 05:59 05:59 Intake Total 3345 / 3345 2194 / 2194 1459.0909 / 1459.0909 600 / 600 Output Total 785 / 785 4375 / 4375 6440 / 6440 1850 / 1850 Balance 2560 / 2560 -2181 / -2181 -4980.9091 / -4980.9091 -1250 / -1250 Weight 157 lb 10.088 oz 166 lb 7.184 oz 150 lb - General physical appearance well developed, well nourished, moderate distress, moderate pain, chronically ill - Eyes PERRL - ENT normal pinna, normal nares, normal mucosa, no hearing loss, no congestion - Neck no masses, no bruits, trachea midline, no lymphadectomy - Respiratory other (Coarse tubular breath sounds bilaterally with some coarse wheezes) - Cardiovascular Cardiovascular exam: Present: normal rate and rhythm, JVD, RRR, +S1, +S2, tachycardia - Abdomen tender, bowel sounds ( Good active bowel sounds with functioning ileostomy), surgical scars (none), wound (Incision base is clean), masses (none) - Integumentary no rash, no growths, no abnormal pigmentation - Neurologic normal coordination, normal sensation - Psychiatric oriented to time, oriented to person, oriented to place, speech is normal, memory intact - Labs 12/28/17 03:48 12/29/17 04:00 Diabetes panel 12/28/17 12/29/17 Range/Units 16:09 04:00 Sodium 141 140 (133-145) mmol/L Potassium 3.3 3.9 (3.3-5.1) mmol/L Chloride 102 97 (96-108) mmol/L Carbon Dioxide 29 31 H (22-30) mmol/L BUN 24 H 21 (8-23) mg/dl Creatinine 0.7 0.7 (0.6-1.1) mg/dl Glucose 120 H 136 H (70-105) mg/dL Calcium 8.4 L 8.9 (8.6-10.4) mg/dl AST 25 (0-37) U/l ALT 14 (0-40) U/l Alkaline Phosphatase 56 (39-117) U/L Total Protein 6.3 (5.9-8.4) gm/dL Albumin 4.3 (3.2-5.2) gm/dL Triglycerides 46 (<150) mg/dl Calcium panel 12/28/17 12/29/17 Range/Units 16:09 04:00 Calcium 8.4 L 8.9 (8.6-10.4) mg/dl Phosphorus 2.1 L (2.7-4.5) mg/dL Albumin 4.3 (3.2-5.2) gm/dL Pituitary panel 12/28/17 12/29/17 Range/Units 16:09 04:00 Sodium 141 140 (133-145) mmol/L Potassium 3.3 3.9 (3.3-5.1) mmol/L Chloride 102 97 (96-108) mmol/L Carbon Dioxide 29 31 H (22-30) mmol/L BUN 24 H 21 (8-23) mg/dl Creatinine 0.7 0.7 (0.6-1.1) mg/dl Glucose 120 H 136 H (70-105) mg/dL Calcium 8.4 L 8.9 (8.6-10.4) mg/dl Adrenal panel 12/28/17 12/29/17 Range/Units 16:09 04:00 Sodium 141 140 (133-145) mmol/L Potassium 3.3 3.9 (3.3-5.1) mmol/L Chloride 102 97 (96-108) mmol/L Carbon Dioxide 29 31 H (22-30) mmol/L BUN 24 H 21 (8-23) mg/dl Creatinine 0.7 0.7 (0.6-1.1) mg/dl Glucose 120 H 136 H (70-105) mg/dL Calcium 8.4 L 8.9 (8.6-10.4) mg/dl Total Bilirubin 1.4 H (0.0-1.0) mg/dL AST 25 (0-37) U/l ALT 14 (0-40) U/l Alkaline Phosphatase 56 (39-117) U/L Total Protein 6.3 (5.9-8.4) gm/dL Albumin 4.3 (3.2-5.2) gm/dL Assessment and Plan (1) Ileostomy status Status: Acute Assessment and plan: STOMA IS WORKING FINE NO BILIOUS DRAINAGE VIA RIDDHI DRAINS Current Visit: Yes (2) Protein-calorie malnutrition, moderate Status: Acute Assessment and plan: Continue TPN and advance as tolerated Add potassium phosphate to correct electrolytes Current Visit: No (3) Enterocutaneous fistula Status: Acute Assessment and plan: No evidence of further leak at this time Current Visit: Yes (4) Volume overload Status: Acute Assessment and plan: CONTINUE LASIX AND ALBUMIN INFUSION Current Visit: Yes - Time Spent With Patient Total time spent is greater than 50% in coordination of care (as documented) at patient's floor/unit and/or counseling patient:
[2017-12-29] MEDS: FAT EMULSION 20% 250 ML in PREMIX 1 BAG IV SCH (16:01)
[2017-12-29] MEDS: ALPRAZolam 0.5 MG TABLET PO PRN (20:02)
[2017-12-30] MEDS: ALBUMIN HUMAN 25 GM/100 ML BAG IV SCH ×5 (00:20→23:29)
[2017-12-30] MEDS: HYDROmorphone 2 MG/ML VIAL IV PRN ×7 (02:25→20:14)
[2017-12-30] MEDS: PIPERACILLIN SODIUM/TAZOBACTAM 3.375 GM in DEXTROSE 5% IN WATER 50 ML IV SCH ×4 (04:47→22:52)
[2017-12-30] MEDS: metroNIDAZOLE 500 MG/100 ML BAG IV SCH ×4 (05:20→23:26)
[2017-12-30 05:55] LABS: ALT/SGPT 12 U/l (0-40); Albumin 4.1 gm/dL (3.2-5.2); Albumin/Globulin Ratio 2.1 (1.0-2.3); Alkaline Phosphatase 44 U/L (39-117); Bilirubin,Direct 0.4 mg/dL (0.0-0.3); Blood Urea Nitrogen 28 mg/dl (8-23); Gamma Glutamyl Transpeptidase 107 U/L (5-36); Uric Acid 3.3 mg/dL (2.5-8.0)
[2017-12-30] MEDS: FUROSEMIDE 20 MG/2 ML VIAL IV SCH ×4 (05:58→23:29)
[2017-12-30] MEDS: 0.9 % SODIUM CHLORIDE 10 ML SYRINGE IV SCH ×3 (05:58→22:53)
[2017-12-30] MEDS: INSULIN LISPRO 1 UNIT/0.01 ML UNIT SQ SCH ×3 (05:58→17:57)
[2017-12-30 06:07] LABS: Prealbumin 15.1 mg/dl (20-40)
[2017-12-30] MEDS: PANTOPRAZOLE 40 MG VIAL IV SCH ×2 (06:47→17:15)
[2017-12-30] MEDS: [UNRECOGNIZED DRUG - REMARK] IV SCH (06:57)
[2017-12-30] MEDS ORDERED: ATROPINE 1% OPHTH DROPS 2ML BOTTLE OU PRN (07:24)
[2017-12-30 08:23] LABS: Basophils # (Auto) 0 K/mcL (0.0-0.3); Basophils % (Auto) 0.5 % (0.0-2.0); Eosinophils # (Auto) 0.2 K/mcL (0.0-0.7); Eosinophils % (Auto) 2.8 % (0.0-7.0); Granulocytes % (Auto) 81.8 % (38.0-78.0); Lymphocytes # (Auto) 0.3 K/mcL (1.5-4.8); Lymphocytes % (Auto) 4.2 % (15.5-49.0); Mean Cell Volume 77.6 fL (80.0-100.0); Mean Corpuscular HGB Conc 32.9 g/dL (31.0-36.0); Mean Corpuscular Hemoglobin 25.5 pg (26.0-34.0); Monocytes # (Auto) 0.7 K/mcL (0.1-0.9); Monocytes % (Auto) 10.7 % (1.0-12.0); Platelet Count 254 K/mcL (140-440); RBC 2.94 M/mcL (4.00-5.20)
[2017-12-30] MEDS: ONDANSETRON 4 MG/2 ML VIAL IV PRN ×2 (10:10→16:24)
--- NOTE | 2017-12-30 11:06 | Internal Med Progress Note ---
Medical - PN: Subj Patient information: Note initiated : 12/30/17 at 11:04 am Service Date, if different from initiated Date: [] Patient: Caroline Bellamy a 77 y/o F admitted on 12/23/17 for Ileostomy Closure and Colorectal Anastomosis. Chief Complaint: f/u respiratory failure Interval history: December 23-Ms. Adiel Cardoso is a 77 year old F with a complex history with hospitalization May 2017 with diverticulitis perforation/peritonitis and prolonged hospital stay. 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 Hospitalization course was complicated by respiratory failure requiring mechanical ventilation and intra-abdominal infection with Pseudomonas. She underwent rehabilitation/TPN and prolonged hospitalization and was gradually recovering. She she now underwent expiratory laparotomy with extensive epidural lysis and small bowel resection. Postoperatively patient was unable to be extubated. Subsequently hospitalist service was consulted and patient was brought into the ICU on mechanical ventilation. patient currently on propofol/fentanyl. No family members available. systolics around 100. Patient has a line. Foleys catheter draining clear urine December 24-patient on mechanical ventilation. Map at 65 on 5 mics Levophed. Improving urine output. On light sedation. Weaning ventilator down to FiO2 35% , ABG 7.47/31/147. chest imaging revealed moderate left and small to moderat bibasilar infiltrate/effusion worsening since previous day. on Zosyn/Flagyl. Continue propofol/fentanyl for sedation. Start sedation holiday in a.m. for possible extubation. Continue weaning vasopressors. December 25- [place] [id number]. Off vasopressors, T MAX 100, no chills. No anxiety, responding to verbal commands, on SBT/sedation holiday, Interval chest iamging shows atelectasis and pl effusion. alert. stable renal function. Diminishing urine output. A line and central line no localized bleeding or redness. No telemetry events. Possible extubation today.ABG 7.35/38/96 on 35% FiO2 and PEEP 5 December 26-Successfully extubated yesterday morning. Remained stable overnight. The morning wanting to try to eat or drink something. WBC decreased from 23K to 19K. However, late this morning, developed leakage of bowel contents through part of her abdominal incision. Taken back to the operating room for exploratory laparotomy. Will likely require mechanical ventilation postoperatively. December 27-patient successfully underwent repair of small leak in the distal ileum yesterday. Remained intubated overnight. This morning during sedation vacation and spontaneous breathing trial, patient was saturating well on 35% room air, had good minute ventilation during the breathing trial. She is successfully extubated. We'll later, respirations became labored. She was receiving significant volumes of IV fluid with maintenance as well as supplements being infused. Responded well to low-dose furosemide with improvement in respiratory status. December 28-overnight, had recurrent respiratory distress, tachypnea, labored respirations with rales and wheezes. Responded to further furosemide about 1 AM. Had recurrent respiratory distress about 5:30 this morning. Respirations were labored, while on only 2 L nasal cannula, saturations are dropped from high 90s to low 90s. She had wheezes as well as rales on exam. Received 10 mg of IV furosemide with some urine output and mild improvement, however required BiPAP therapy. Receive further 20 mg of furosemide with brisk diuresis. Remains on BiPAP for respiratory support. Chest x-ray with worsening interstitial infiltrates. Exam also with significant jugular venous distention consistent with volume overload. Has been receiving albumin. December 29-patient continues on BiPAP. She is off for a while this morning, became dyspneic. Improved approximately 1-2 hours after morning furosemide dose. She tends to have more respiratory distress as the furosemide has worn off. Has been receiving furosemide every 8 hours with good diuresis. Renal functions remain stable. At one point was complaining to family that she did not want to keep going with therapy, though seems to improved later in the morning. December 30-on BiPAP most of the night. Urine output responding to 20 mg of Lasix every 6 hours, urine output tails off towards the end. Receiving albumin and Lasix scheduled. Overall respiratory status clinically improved. Changed over to high flow nasal cannula this morning which she is tolerating. She complains of feeling tired, doesn't think she is any better. - Constitutional Vitals: Vital Signs Temp Pulse Resp BP Pulse Ox 99.0 F H 102 H 21 133/79 97 12/29/17 20:00 12/30/17 09:30 12/30/17 09:45 12/30/17 09:01 12/30/17 09:30 Period Temp Pulse Resp BP Sys/[place] Pulse Ox Last 24 Hr 99.0 F-99.2 F 82-108 12-41 73-133/44-81 30-100 Intake and Output 12/29/17 12/30/17 12/30/17 21:59 05:59 13:59 Intake Total 350 / 350 250 / 250 2760.3435 / 2760.3435 Output Total 1595 / 1595 710 / 710 1170 / 1170 Balance -1245 / -1245 -460 / -460 1590.3435 / 1590.3435 Weight 145 lb 6.4 oz Intake & Output: Intake & Output 12/29/17 12/30/17 12/30/17 21:59 05:59 13:59 Intake Total 350 / 350 250 / 250 2760.3435 / 2760.3435 Output Total 1595 / 1595 710 / 710 1170 / 1170 Balance -1245 / -1245 -460 / -460 1590.3435 / 1590.3435 Weight 145 lb 6.4 oz Intake: IV 350 / 350 250 / 250 2640.3435 / 2640.3435 OFIRMEV 1,000 mg In 100 ml @ 100 / 100 200 mls/hr IV Q6HP PRN Rx#: [id number] Calcium Gluconate 5 Meq 987 / 987 Magnesium Sulfate 8.12 Meq Sodium Chloride 20 Meq Potassium Phosphate 40 Meq Infuvite Adult 10 ml Selenium 60 Mcg Potassium Chloride 30 Meq Sodium Phosphate 15 Mmol In Clinimix 5%-20% Solution 1,000 ml @ 55 mls/hr IV Q19H KRISS Rx# :[id number] Intralipid 20% 250 ml In Premix 250 / 250 1 Bag @ 25 mls/hr IV TuThSa@ 1600 COUNT INCLUDES THE [facility] Rx#:[id number] Zosyn 3.375 gm In Dextrose 5% 50 / 50 50 / 50 50 / 50 in Water 50 ml @ 100 mls/hr IV Q6H COUNT INCLUDES THE [facility] Rx#:[id number] Oral 120 / 120 Output: Drainage 45 / 45 RIDDHI A 30 / 30 RIDDHI B 15 / 15 Urine Catheter Amount 1500 / 1500 710 / 710 1070 / 1070 Stool 50 / 50 100 / 100 Other: Stool Size Small Stool Color Brown Green Green Stool Consistency Loose Liquid Exam: General: Uncomfortable-appearing Chest: Fine crackles bilaterally Cardiovascular: Regular rate and rhythm, neck veins proximately to angle of jaw at 45 Abdomen: Soft, dressings intact Ext: Non-pitting edema of forearms has significantly improved Neuro: Alert, generally weak Medical - PN: Obj Da - Labs CBC & Chem 7: 12/30/17 08:00 12/30/17 04:00 Labs: Abnormal Lab Results 12/30/17 12/30/17 12/29/17 08:00 04:00 10:13 WBC RBC 2.94 L Hgb 7.5 L Hct 22.8 L MCV 77.6 L MCH 25.5 L RDW 16.0 H Gran % 81.8 H Lymph % (Auto) 4.2 L Lymph # (Auto) 0.3 L Seg Neutrophils % Lymphocytes % RBC Morphology Hypochromasia Anisocytosis Microcytosis Chloride 95 L Carbon Dioxide 35 H BUN 28 H Glucose 125 H Calcium Phosphorus Total Bilirubin Direct Bilirubin 0.4 H GGT 107 H NT-Pro-B Natriuret Pep 73360.0 H Globulin 2.0 L Prealbumin 15.1 L 12/29/17 12/29/17 12/28/17 04:00 04:00 16:09 WBC RBC Hgb Hct MCV MCH RDW Gran % Lymph % (Auto) Lymph # (Auto) Seg Neutrophils % Lymphocytes % RBC Morphology Hypochromasia Anisocytosis Microcytosis Chloride Carbon Dioxide 31 H BUN 24 H Glucose 136 H 120 H Calcium 8.4 L Phosphorus 2.1 L Total Bilirubin 1.4 H Direct Bilirubin 0.7 H GGT 135 H NT-Pro-B Natriuret Pep Globulin 2.0 L Prealbumin 14.6 L 12/28/17 12/28/17 12/28/17 07:50 03:48 03:48 WBC 13.1 H RBC 3.20 L Hgb 8.2 L Hct 25.0 L MCV 78.1 L MCH 25.5 L RDW 16.8 H Gran % Lymph % (Auto) Lymph # (Auto) Seg Neutrophils % 84 H Lymphocytes % 7 L RBC Morphology Abnorm A Hypochromasia 1+ A Anisocytosis 1+ A Microcytosis 1+ A Chloride Carbon Dioxide BUN Glucose 123 H Calcium 8.4 L Phosphorus Total Bilirubin Direct Bilirubin GGT 56 H NT-Pro-B Natriuret Pep 42706.0 H Globulin Prealbumin 12.7 L Meds: Medications Albuterol Sulfate (Ventolin) 2.5 mg NEB Q2HP PRN PRN Reason: Shortness Of Breath Last Admin: 12/28/17 13:54 Dose: 2.5 mg Alprazolam (Xanax) 0.5 mg PO TIDP PRN PRN Reason: Anxiety Last Admin: 12/29/17 20:02 Dose: 0.5 mg Artificial Tears (Artificial Tears Ophth Drops) 1 gtt OU QIDP PRN PRN Reason: Dry Eye(s) Last Admin: 12/29/17 13:51 Dose: 1 gtt Dextrose (Dextrose 50%) 25 ml IV UD PRN PRN Reason: Hypoglycemia Diagnostic Test (Pha) (Accu-Chek) 1 each FS Q6 KRISS Last Admin: 12/30/17 05:58 Dose: 1 each Furosemide (Lasix) 20 mg IV Q6 KRISS Stop: 12/31/17 06:01 Last Admin: 12/30/17 05:58 Dose: 20 mg Glucose Oxid/Lactoperoxid/Muramidas (Biotene) 1 each TOPICAL PRN PRN PRN Reason: Dry Mouth Last Admin: 12/27/17 23:53 Dose: 1 each Heparin Sodium (Porcine) (Heparin Flush) 2 ml IV Q12 KRISS Last Admin: 12/30/17 09:25 Dose: 2 ml Hydromorphone HCl (Dilaudid) 1 mg IV Q2HP PRN PRN Reason: PAIN LEVEL > 6 Last Admin: 12/30/17 09:25 Dose: 1 mg Heparin Sodium/Sodium Chloride (Heparin/Ns) 500 mls @ 0 mls/hr IV .Q0M KRISS; KVO PRN Reason: Protocol Metronidazole (Flagyl) 500 mg in 100 mls @ 100 mls/hr IV Q6H KRISS Last Infusion: 12/30/17 07:46 Dose: Infused Norepinephrine Bitartrate 16 (mg/ Sodium Chloride) 250 mls @ 9.37 mls/hr IV Q24H PRN; Protocol; 10 MCG/MIN PRN Reason: Hypotension Last Titration: 12/27/17 06:49 Dose: 0 mcg/min, 0 mls/hr Acetaminophen (Ofirmev) 1,000 mg in 100 mls @ 200 mls/hr IV Q6HP PRN PRN Reason: Pain Last Infusion: 12/30/17 07:47 Dose: Infused Piperacillin Sod/Tazobactam (Sod 3.375 gm/ Dextrose) 50 mls @ 100 mls/hr IV Q6H COUNT INCLUDES THE [facility] Last Admin: 12/30/17 10:50 Dose: 100 mls/hr Albumin Human (Buminate) 25 gm in 100 mls @ 200 mls/hr IV Q6 COUNT INCLUDES THE [facility] Stop: 12/31/17 06:29 Last Infusion: 12/30/17 06:00 Dose: Infused Fat Emulsion Intravenous 250 (ml/ Premix) 250 mls @ 25 mls/hr IV TuThSa@1600 COUNT INCLUDES THE [facility] Last Infusion: 12/30/17 06:00 Dose: Infused Magnesium Sulfate 8.12 meq/Potassium Phosphate 30 meq/Multivitamins/Minerals 10 ml/Selenium 60 mcg/ Potassium Chloride 40 meq/ Sodium Phosphate 15 mmol/ Amino Acids 1,045.3182 mls @ 55 mls/hr IV Q19H COUNT INCLUDES THE [facility] Last Admin: 12/30/17 06:57 Dose: 55 mls/hr Insulin Human Lispro (Humalog) 0 unit SQ Q6 COUNT INCLUDES THE [facility] PRN Reason: Protocol Last Admin: 12/30/17 05:58 Dose: Not Given Ondansetron HCl (Zofran) 4 mg IV Q4HP PRN PRN Reason: Nausea And Vomiting Last Admin: 12/30/17 10:10 Dose: 4 mg Pantoprazole Sodium (Protonix) 40 mg IV BIDAC COUNT INCLUDES THE [facility] Last Admin: 12/30/17 06:47 Dose: 40 mg Promethazine HCl (Phenergan) 12.5 mg IV Q4HP PRN PRN Reason: Nausea And Vomiting Sodium Chloride (Saline Flush) 10 ml IV UD PRN PRN Reason: FLUSH Sodium Chloride (Saline Flush) 10 ml IV Q8 COUNT INCLUDES THE [facility] Last Admin: 12/30/17 05:58 Dose: Not Given Medical - PN: A/P - Time Spent With Patient Total time spent is greater than 50% in coordination of care (as documented) at patient's floor/unit and/or counseling patient: - Narrative A/P Narrative: 77-year-old female, status post exploratory laparotomy in attempt for ileostomy takedown after prior Clark's procedure last May. Unable to accomplish anastomosis due to friable tissues. Status post exploratory laparotomy. POD#7 and POD#4. Management per surgery. Still requires delayed closure of abdominal wound. Hospitalist consult for postoperative respiratory failure and mechanical ventilation. Successfully extubated late Thursday morning. Worsening hypoxic respiratory failure Thursday afternoon, improved after furosemide, worsened again overnight Thursday 2. Thursday was diuresed, responding after each dose of furosemide. On exam Thursday, still has evidence of volume overload, suspect fluid overload/pulmonary edema secondary to volume shifts. Renal function is tolerating diuresis. Echocardiogram with good LV function. Continues to diurese on Q6hr furosemide (20 mg), becomes dyspneic when diuresis tapers off. Appears to still be mobilizing fluid. Renal function tolerating diuresis. Plan: Continue furosemide 20 mg Q6hr with albumin, follow intake and output, continue with albumin, monitor renal function and electrolytes with diuresis. High flow oxygen, continue with BiPAP support as needed if high flow not adequate., continue with aggressive pulmonary toilet; supplemental oxygen as needed. Acute hypoxic respiratory failure. Now secondary to volume overload from fluid shifts. Plan: As above. ID: On broad-spectrum antibiotics for peritonitis. WBC normalized. F/E/N: On TPN. Medical - PN: Qual - VTE Deep Vein Thrombosis/Pulmonary Embolism Present on Admission: No Procedures - Arterial Line Size (Gauge): 20
[2017-12-30] MEDS: HEPARIN/NS 500 ML IV SCH (13:37)
--- NOTE | 2017-12-30 15:23 | General Surgery Progress Note ---
Subjective Patient reports: feels better, pain is less, flatus, bowel movement, diarrhea, afebrile Narrative: Note initiated : 12/30/17 at 3:22 pm Service Date, if different from initiated Date: [] Patient: Caroline Bellamy 77 y/o F admitted on 12/23/17 for Ileostomy Closure and Colorectal Anastomosis. Chief Complaint: [Patient looks clinically better. She has been switched from BiPAP to high flow nasal cannula and seems to be tolerating it well. She communicates much better today. She does not complain of shortness of breath though she does have mild tachypnea. Vital signs have been stable and she has been afebrile. She complains of thirst. She is tolerated the popsicles and ice chips without difficulty. She still has high output via her stoma. The RIDDHI drainage is serous.] Objective Temp Pulse Resp BP Pulse Ox 99.0 F H 99 H 24 H 119/61 100 12/29/17 20:00 12/30/17 15:01 12/30/17 15:01 12/30/17 15:01 12/30/17 15:01 - Additional Data Intake & Output - Last 24 hours: Intake & Output 12/28/17 12/29/17 12/30/17 12/31/17 05:59 05:59 05:59 05:59 Intake Total 2194 / 2194 1459.0909 / 1459.0909 1100 / 1100 3070.3435 / 3070.3435 Output Total 4375 / 4375 6440 / 6440 4075 / 4075 2500 / 2500 Balance -2181 / -2181 -4980.9091 / -4980.9091 -2975 / -2975 570.3435 / 570.3435 Weight 166 lb 7.184 oz 150 lb 145 lb 6.4 oz 145 lb 6.4 oz - General physical appearance well developed, well nourished, moderate distress - Eyes PERRL, normal ocular movement - ENT normal pinna, normal nares, normal mucosa, no hearing loss, no congestion - Neck no masses, no bruits, trachea midline, no lymphadectomy - Respiratory normal expansion, normal respiratory effort, other (Coarse tubular breath sounds bilaterally) - Cardiovascular Cardiovascular exam: Present: normal rate and rhythm, JVD, RRR, +S1, +S2, tachycardia - Abdomen non tender, bowel sounds (She has good active bowel sounds and does not have any abdominal distention), surgical scars (none), masses (none) - Integumentary no rash, no growths, no abnormal pigmentation - Neurologic normal coordination, normal sensation - Psychiatric oriented to time, oriented to person, oriented to place, speech is normal, memory intact - Labs 12/30/17 08:00 12/30/17 04:00 Diabetes panel 12/30/17 Range/Units 04:00 Sodium 141 (133-145) mmol/L Potassium 3.5 (3.3-5.1) mmol/L Chloride 95 L (96-108) mmol/L Carbon Dioxide 35 H (22-30) mmol/L BUN 28 H (8-23) mg/dl Creatinine 0.8 (0.6-1.1) mg/dl Glucose 125 H (70-105) mg/dL Calcium 9.1 (8.6-10.4) mg/dl AST 14 (0-37) U/l ALT 12 (0-40) U/l Alkaline Phosphatase 44 (39-117) U/L Total Protein 6.1 (5.9-8.4) gm/dL Albumin 4.1 (3.2-5.2) gm/dL Triglycerides 44 (<150) mg/dl Calcium panel 12/30/17 Range/Units 04:00 Calcium 9.1 (8.6-10.4) mg/dl Phosphorus 3.5 (2.7-4.5) mg/dL Albumin 4.1 (3.2-5.2) gm/dL Pituitary panel 12/30/17 Range/Units 04:00 Sodium 141 (133-145) mmol/L Potassium 3.5 (3.3-5.1) mmol/L Chloride 95 L (96-108) mmol/L Carbon Dioxide 35 H (22-30) mmol/L BUN 28 H (8-23) mg/dl Creatinine 0.8 (0.6-1.1) mg/dl Glucose 125 H (70-105) mg/dL Calcium 9.1 (8.6-10.4) mg/dl Adrenal panel 12/30/17 Range/Units 04:00 Sodium 141 (133-145) mmol/L Potassium 3.5 (3.3-5.1) mmol/L Chloride 95 L (96-108) mmol/L Carbon Dioxide 35 H (22-30) mmol/L BUN 28 H (8-23) mg/dl Creatinine 0.8 (0.6-1.1) mg/dl Glucose 125 H (70-105) mg/dL Calcium 9.1 (8.6-10.4) mg/dl Total Bilirubin 0.8 (0.0-1.0) mg/dL AST 14 (0-37) U/l ALT 12 (0-40) U/l Alkaline Phosphatase 44 (39-117) U/L Total Protein 6.1 (5.9-8.4) gm/dL Albumin 4.1 (3.2-5.2) gm/dL Assessment and Plan (1) Ileostomy status Status: Acute Assessment and plan: STOMA IS WORKING FINE NO BILIOUS DRAINAGE VIA RIDDHI DRAINS Current Visit: Yes (2) Protein-calorie malnutrition, moderate Status: Acute Assessment and plan: Continue TPN and advance as tolerated Add potassium phosphate to correct electrolytes Current Visit: No (3) Enterocutaneous fistula Status: Acute Assessment and plan: No evidence of further leak at this time Current Visit: Yes (4) Volume overload Status: Acute Assessment and plan: CONTINUE LASIX AND ALBUMIN INFUSIOn BUN is beginning to rise which may suggest intravenous volume contraction. Current Visit: Yes - Time Spent With Patient Total time spent is greater than 50% in coordination of care (as documented) at patient's floor/unit and/or counseling patient:
[2017-12-30] MEDS: ACETAMINOPHEN 1,000 MG/100 ML BOTTLE IV PRN (18:18)
[2017-12-30] MEDS: ALPRAZolam 0.5 MG TABLET PO PRN (20:15)
[2017-12-31] MEDS: INSULIN LISPRO 1 UNIT/0.01 ML UNIT SQ SCH ×5 (00:07→23:43)
[2017-12-31] MEDS: HYDROmorphone 2 MG/ML VIAL IV PRN ×9 (02:24→23:44)
[2017-12-31] MEDS: [UNRECOGNIZED DRUG - REMARK] IV SCH (02:37)
[2017-12-31] MEDS: ACETAMINOPHEN 1,000 MG/100 ML BOTTLE IV PRN ×2 (03:50→21:16)
[2017-12-31] MEDS: PIPERACILLIN SODIUM/TAZOBACTAM 3.375 GM in DEXTROSE 5% IN WATER 50 ML IV SCH ×4 (05:00→22:40)
[2017-12-31] MEDS: metroNIDAZOLE 500 MG/100 ML BAG IV SCH ×4 (05:27→23:43)
[2017-12-31] MEDS: ALBUMIN HUMAN 25 GM/100 ML BAG IV SCH (05:55)
[2017-12-31] MEDS: FUROSEMIDE 20 MG/2 ML VIAL IV SCH (06:05)
[2017-12-31] MEDS: 0.9 % SODIUM CHLORIDE 10 ML SYRINGE IV SCH ×9 (06:08→21:41)
[2017-12-31] MEDS: PANTOPRAZOLE 40 MG VIAL IV SCH ×2 (06:43→17:34)
[2017-12-31 06:48] LABS: ALT/SGPT 8 U/l (0-40); Albumin 4.7 gm/dL (3.2-5.2); Albumin/Globulin Ratio 2.8 (1.0-2.3); Alkaline Phosphatase 39 U/L (39-117); Bilirubin,Direct 0.3 mg/dL (0.0-0.3); Blood Urea Nitrogen 36 mg/dl (8-23); Gamma Glutamyl Transpeptidase 87 U/L (5-36); Uric Acid 3.5 mg/dL (2.5-8.0)
[2017-12-31] MEDS: HEPARIN/NS 500 ML IV SCH (07:05)
--- NOTE | 2017-12-31 08:47 | XRay Report ---
HISTORY: Reason for Exam:f/u of possible ARDS FINDINGS: Moderate diffuse infiltrates are again seen throughout both lungs with the greatest consolidation in the lung bases. There may be small bilateral subpulmonic pleural effusions. Heart is partially obscured by the surrounding consolidated lung parenchyma. The PICC line remains well-positioned. No pneumothorax is present. There has been no significant change since 12/29/17. IMPRESSION: Stable moderate generalized infiltrates bilaterally. This may be a combination of ARDS, pneumonia, atelectasis and congestive heart failure. Interpreted and Authenticated by: Varghese Reich 12/31/17
[2017-12-31] MEDS ORDERED: VANCOMYCIN PER PHARMACY IV SCH (10:46)
[2017-12-31] MEDS: VANCOMYCIN 1,000 MG in 0.9 % SODIUM CHLORIDE 250 ML IV SCH (12:02)
[2017-12-31] MEDS: [UNRECOGNIZED DRUG - REMARK] IV SCH (12:25)
--- NOTE | 2017-12-31 14:39 | Internal Med Progress Note ---
Medical - PN: Subj Patient information: Note initiated : 12/31/17 at 2:37 pm Service Date, if different from initiated Date: [] Patient: Caroline Bellamy a 77 y/o F admitted on 12/23/17 for Ileostomy Closure and Colorectal Anastomosis. Chief Complaint: [] Interval history: December 23-Ms. Adiel Cardoso is a 77 year old F with a complex history with hospitalization May 2017 with diverticulitis perforation/peritonitis and prolonged hospital stay. 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 Hospitalization course was complicated by respiratory failure requiring mechanical ventilation and intra-abdominal infection with Pseudomonas. She underwent rehabilitation/TPN and prolonged hospitalization and was gradually recovering. She she now underwent expiratory laparotomy with extensive epidural lysis and small bowel resection. Postoperatively patient was unable to be extubated. Subsequently hospitalist service was consulted and patient was brought into the ICU on mechanical ventilation. patient currently on propofol/fentanyl. No family members available. systolics around 100. Patient has a line. Foleys catheter draining clear urine December 24-patient on mechanical ventilation. Map at 65 on 5 mics Levophed. Improving urine output. On light sedation. Weaning ventilator down to FiO2 35% , ABG 7.47/31/147. chest imaging revealed moderate left and small to moderat bibasilar infiltrate/effusion worsening since previous day. on Zosyn/Flagyl. Continue propofol/fentanyl for sedation. Start sedation holiday in a.m. for possible extubation. Continue weaning vasopressors. December 25- [place] [address]. Off vasopressors, T MAX 100, no chills. No anxiety, responding to verbal commands, on SBT/sedation holiday, Interval chest iamging shows atelectasis and pl effusion. alert. stable renal function. Diminishing urine output. A line and central line no localized bleeding or redness. No telemetry events. Possible extubation today.ABG 7.35/38/96 on 35% FiO2 and PEEP December 26-Successfully extubated yesterday morning. Remained stable overnight. The morning wanting to try to eat or drink something. WBC decreased from 23K to 19K. However, late this morning, developed leakage of bowel contents through part of her abdominal incision. Taken back to the operating room for exploratory laparotomy. Will likely require mechanical ventilation postoperatively. December 27-patient successfully underwent repair of small leak in the distal ileum yesterday. Remained intubated overnight. This morning during sedation vacation and spontaneous breathing trial, patient was saturating well on 35% room air, had good minute ventilation during the breathing trial. She is successfully extubated. We'll later, respirations became labored. She was receiving significant volumes of IV fluid with maintenance as well as supplements being infused. Responded well to low-dose furosemide with improvement in respiratory status. December 28-overnight, had recurrent respiratory distress, tachypnea, labored respirations with rales and wheezes. Responded to further furosemide about 1 AM. Had recurrent respiratory distress about 5:30 this morning. Respirations were labored, while on only 2 L nasal cannula, saturations are dropped from high 90s to low 90s. She had wheezes as well as rales on exam. Received 10 mg of IV furosemide with some urine output and mild improvement, however required BiPAP therapy. Receive further 20 mg of furosemide with brisk diuresis. Remains on BiPAP for respiratory support. Chest x-ray with worsening interstitial infiltrates. Exam also with significant jugular venous distention consistent with volume overload. Has been receiving albumin. December 29-patient continues on BiPAP. She is off for a while this morning, became dyspneic. Improved approximately 1-2 hours after morning furosemide dose. She tends to have more respiratory distress as the furosemide has worn off. Has been receiving furosemide every 8 hours with good diuresis. Renal functions remain stable. At one point was complaining to family that she did not want to keep going with therapy, though seems to improved later in the morning. December 30-on BiPAP most of the night. Urine output responding to 20 mg of Lasix every 6 hours, urine output tails off towards the end. Receiving albumin and Lasix scheduled. Overall respiratory status clinically improved. Changed over to high flow nasal cannula this morning which she is tolerating. She complains of feeling tired, doesn't think she is any better. december 31 Pt seen and examined, no acute overnight events. Patient's chest x-ray shows worsening infiltrate versus ARDS versus pneumonia. Patient is on Zosyn as well as Flagyl. Start on vancomycin IV. She has completed her albumin and Lasix dosing according to the nurse. X-ray chest to rule is worsened. Patient is on 35% FiO2 by high flow nasal cannula. She seems to be tolerating it well. Her oxygen level is maintained with this. The patient definitely is tachypneic. She still complains about significant abdominal pain. [id number] ultrasound done IVC reviewed, the patient has complete collapse of the IVC with inspiration. This indicates that the patient does not seem to be in fluid overload other is volume depleted after aggressive diuresis. For now we will just hold off on Lasix and monitor. Pertinent ROS: Denies headache, dizziness Denies chest pain, palpitations No acute cough shortness of breath present Abdominal pain present. No nausea vomiting - Constitutional Vitals: Vital Signs Temp Pulse Resp BP Pulse Ox 99.0 F H 88 14 118/65 100 12/31/17 12:00 12/31/17 13:00 12/31/17 13:00 12/31/17 07:29 12/31/17 13:00 Period Temp Pulse Resp BP Sys/[place] Pulse Ox Last 24 Hr 98.1 F-99.8 F 78-102 13-26 86-122/47-74 90-100 Intake and Output 12/31/17 12/31/17 12/31/17 05:59 13:59 21:59 Intake Total 1456.0708 / 1456.0708 1683 / 1683 Output Total 730 / 730 930 / 930 Balance 726.0708 / 726.0708 753 / 753 Weight 150 lb Patient Weight 01/01/18 05:59 Weight 150 lb Intake & Output: Intake & Output 12/31/17 12/31/17 12/31/17 05:59 13:59 21:59 Intake Total 1456.0708 / 1456.0708 1683 / 1683 Output Total 730 / 730 930 / 930 Balance 726.0708 / 726.0708 753 / 753 Weight 150 lb Intake: IV 1456.0708 / 1456.0708 1063 / 1063 OFIRMEV 1,000 mg In 100 ml @ 100 / 100 200 mls/hr IV Q6HP PRN Rx#: [id number] Heparin/Ns 500 ml @ KVO IV .Q0M 175 / 175 [facility] Rx#:[id number] Magnesium Sulfate 8.12 Meq 1056.0708 / 1056.0708 538 / 538 Potassium Phosphate 30 Meq Infuvite Adult 10 ml Selenium 60 Mcg Potassium Chloride 40 Meq Sodium Phosphate 15 Mmol In Clinimix 5%-20% Solution 1,000 ml @ 55 mls/hr IV Q19H [facility] Rx# :[id number] Zosyn 3.375 gm In Dextrose 5% 100 / 100 50 / 50 in Water 50 ml @ 100 mls/hr IV Q6H [facility] Rx#:[id number] Oral 295 / 295 IV - Manual Only 325 / 325 Output: Drainage RIDDHI B Urine Catheter Amount 670 / 670 930 / 930 Stool 50 / 50 Other: Stool Color Green Green Black Stool Consistency Liquid Liquid Exam: Constitutional; Afebrile, cooperative, alert, no distress secondary to pain Eyes- No icterus, , No periorbital swelling Ears- Ext ear normal, hearing normal to conversation. Neck- Midline trachea, supple Respiratory system: Air Entry equal on both sides, No crackles or wheezing, no rhonchi. And is tachypneic CVS- Rate rhythm regular, S1,S2 heard, no gallop, no rub. 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 Medical - PN: Obj Da - Labs CBC & Chem 7: 12/30/17 08:00 12/31/17 04:00 Labs: Abnormal Lab Results 12/31/17 12/30/17 12/30/17 04:00 08:00 04:00 RBC 2.94 L Hgb 7.5 L Hct 22.8 L MCV 77.6 L MCH 25.5 L RDW 16.0 H Gran % 81.8 H Lymph % (Auto) 4.2 L Lymph # (Auto) 0.3 L Chloride 92 L 95 L Carbon Dioxide 37 H 35 H BUN 36 H 28 H Glucose 131 H 125 H Calcium Phosphorus Total Bilirubin Direct Bilirubin 0.4 H GGT 87 H 107 H NT-Pro-B Natriuret Pep Globulin 1.7 L 2.0 L Albumin/Globulin Ratio 2.8 H Prealbumin 15.1 L 12/29/17 12/29/17 12/29/17 10:13 04:00 04:00 RBC Hgb Hct MCV MCH RDW Gran % Lymph % (Auto) Lymph # (Auto) Chloride Carbon Dioxide 31 H BUN Glucose 136 H Calcium Phosphorus 2.1 L Total Bilirubin 1.4 H Direct Bilirubin 0.7 H GGT 135 H NT-Pro-B Natriuret Pep 18535.0 H Globulin 2.0 L Albumin/Globulin Ratio Prealbumin 14.6 L 12/28/17 16:09 RBC Hgb Hct MCV MCH RDW Gran % Lymph % (Auto) Lymph # (Auto) Chloride Carbon Dioxide BUN 24 H Glucose 120 H Calcium 8.4 L Phosphorus Total Bilirubin Direct Bilirubin GGT NT-Pro-B Natriuret Pep Globulin Albumin/Globulin Ratio Prealbumin Meds: Medications Albuterol Sulfate (Ventolin) 2.5 mg NEB Q2HP PRN PRN Reason: Shortness Of Breath Last Admin: 12/28/17 13:54 Dose: 2.5 mg Alprazolam (Xanax) 0.5 mg PO TIDP PRN PRN Reason: Anxiety Last Admin: 12/30/17 20:15 Dose: 0.5 mg Artificial Tears (Artificial Tears Ophth Drops) 1 gtt OU QIDP PRN PRN Reason: Dry Eye(s) Last Admin: 12/29/17 13:51 Dose: 1 gtt Dextrose (Dextrose 50%) 25 ml IV UD PRN PRN Reason: Hypoglycemia Diagnostic Test (Pha) (Accu-Chek) 1 each FS Q6 [facility] Last Admin: 12/31/17 11:50 Dose: 1 each Glucose Oxid/Lactoperoxid/Muramidas (Biotene) 1 each TOPICAL PRN PRN PRN Reason: Dry Mouth Last Admin: 12/27/17 23:53 Dose: 1 each Heparin Sodium (Porcine) (Heparin Flush) 2 ml IV Q12 [facility] Last Admin: 12/31/17 09:45 Dose: 2 ml Hydromorphone HCl (Dilaudid) 1 mg IV Q2HP PRN PRN Reason: PAIN LEVEL > 6 Last Admin: 12/31/17 12:50 Dose: 1 mg Heparin Sodium/Sodium Chloride (Heparin/Ns) 500 mls @ 0 mls/hr IV .Q0M [facility]ISS; KVO PRN Reason: Protocol Last Admin: 12/31/17 07:05 Dose: 3 mls/hr Metronidazole (Flagyl) 500 mg in 100 mls @ 100 mls/hr IV Q6H [facility] Last Infusion: 12/31/17 13:00 Dose: Infused Norepinephrine Bitartrate 16 (mg/ Sodium Chloride) 250 mls @ 9.37 mls/hr IV Q24H PRN; Protocol; 10 MCG/MIN PRN Reason: Hypotension Last Titration: 12/27/17 06:49 Dose: 0 mcg/min, 0 mls/hr Acetaminophen (Ofirmev) 1,000 mg in 100 mls @ 200 mls/hr IV Q6HP PRN PRN Reason: Pain Last Infusion: 12/31/17 04:50 Dose: Infused Piperacillin Sod/Tazobactam (Sod 3.375 gm/ Dextrose) 50 mls @ 100 mls/hr IV Q6H [facility] Last Infusion: 12/31/17 11:41 Dose: Infused Fat Emulsion Intravenous 250 (ml/ Premix) 250 mls @ 25 mls/hr IV TuThSa@1600 [facility] Last Infusion: 12/30/17 06:00 Dose: Infused Magnesium Sulfate 16.24 meq/Potassium Phosphate 40 meq/Multivitamins/Minerals 10 ml/Selenium 60 mcg/ Potassium Chloride 100 meq/ Sodium Phosphate 30 mmol/ Sodium Chloride 40 meq/ Amino Acids 2,094.5909 mls @ 65 mls/hr IV Q24H [facility] Last Admin: 12/31/17 12:25 Dose: 65 mls/hr Vancomycin HCl 1,000 mg/ (Sodium Chloride) 250 mls @ 250 mls/hr IV Q24H [facility] Last Admin: 12/31/17 12:02 Dose: 250 mls/hr Insulin Human Lispro (Humalog) 0 unit SQ Q6 [facility] PRN Reason: Protocol Last Admin: 12/31/17 12:01 Dose: 2 unit Ondansetron HCl (Zofran) 4 mg IV Q4HP PRN PRN Reason: Nausea And Vomiting Last Admin: 12/30/17 16:24 Dose: 4 mg Pantoprazole Sodium (Protonix) 40 mg IV BIDAC [facility] Last Admin: 12/31/17 06:43 Dose: 40 mg Promethazine HCl (Phenergan) 12.5 mg IV Q4HP PRN PRN Reason: Nausea And Vomiting Sodium Chloride (Saline Flush) 10 ml IV UD PRN PRN Reason: FLUSH Sodium Chloride (Saline Flush) 10 ml IV Q8 [facility] Last Admin: 12/31/17 12:50 Dose: 10 ml Vancomycin HCl (Vancomycin Per Pharmacy) 1 order IV UD [facility] Medical - PN: A/P - Time Spent With Patient Total time spent is greater than 50% in coordination of care (as documented) at patient's floor/unit and/or counseling patient: - Narrative A/P Narrative: 77-year-old female, status post exploratory laparotomy in attempt for ileostomy takedown after prior Clark's procedure last May. Unable to accomplish anastomosis due to friable tissues. Status post exploratory laparotomy. POD#7 and POD#4. Management per surgery. Still requires delayed closure of abdominal wound. Hospitalist consult for postoperative respiratory failure and mechanical ventilation. Successfully extubated late Thursday morning. s/p extubation d4, she later Worsening hypoxic respiratory failure Thursday afternoon, improved after furosemide, worsened again overnight Thursday 2. Thursday was diuresed, responding after each dose of furosemide. On exam Thursday, still has evidence of volume overload, suspect fluid overload/pulmonary edema secondary to volume shifts. Renal function is tolerating diuresis. Echocardiogram with good LV function. [id number] ultrasound done, IVC noted to be completely collapsed with inspiratory effort. X ray today shows worserning edema, infitlrate, ards. This can be seen with use of albumin. Plan: hold off lasix and albumin now monitor for now. Pulmonary findings related to non cardiogenic pulmonary edema vs ARDS vs infection. Continue on Hiflo nasal canula for oxygen. wean off as tolerated. Consider bipap support if needed. Possible HCAP PNA Pt already on zosy, add vanco for now and monitor. Acute hypoxic respiratory failure. Now secondary to volume overload from fluid shifts Plan: As above. Anemia: Hb 7.5, may need transfusion if drops further. F/E/N: On TPN. Medical - PN: Qual - VTE Deep Vein Thrombosis/Pulmonary Embolism Present on Admission: No Procedures - Arterial Line Size (Gauge): 20
[2017-12-31] MEDS: FAT EMULSION 20% 250 ML in PREMIX 1 BAG IV SCH (15:45)
[2017-12-31] MEDS: LACTOPEROXI/GLUC OXID/POT THIO 1 EACH GEL..EA. TOPICAL PRN (16:09)
--- NOTE | 2017-12-31 16:24 | General Surgery Progress Note ---
Subjective Patient reports: still having pain, tolerating liquids well, flatus, bowel movement, diarrhea Narrative: Note initiated : 12/31/17 at 4:24 pm Service Date, if different from initiated Date: [] Patient: Caroline Bellamy 77 y/o F admitted on 12/23/17 for Ileostomy Closure and Colorectal Anastomosis. Chief Complaint: [Patient is relatively stable. Her vital signs are good and she is afebrile. She is complaining of increased crampy abdominal pain which is more prominent than on yesterday. She does not have significant abdominal distention and she has good active bowel sounds. She also has stool and gas through her ostomy. There is minimal serous output through her drains. She has taken them large volumes of water and this may have contributed to her crampy abdominal pain. She has increased burping but denies nausea or vomiting. Her white count is normal though her hemoglobin has drifted down more. Her BUN continues to rise so her Lasix has been discontinued for the time being. Her serum albumin is 4.6. She does not complain of any shortness of breath though clinically her chest x-ray suggests that she has increased infiltrates. Her oxygen saturations have been good.] Objective Temp Pulse Resp BP Pulse Ox 99.0 F H 88 16 118/65 95 12/31/17 12:00 12/31/17 15:50 12/31/17 15:50 12/31/17 07:29 12/31/17 15:50 - Additional Data Intake & Output - Last 24 hours: Intake & Output 12/29/17 12/30/17 12/31/17 01/01/18 05:59 05:59 05:59 05:59 Intake Total 1459.0909 / 1459.0909 1100 / 1100 5276.4143 / 5276.4143 2052 Output Total 6440 / 6440 4075 / 4075 4157 / 4157 1050 / 1050 Balance -4980.9091 / -4980.9091 -2975 / -2975 1119.4143 / 1119.4143 1003 / 1003 Weight 150 lb 145 lb 6.4 oz 150 lb 150 lb - General physical appearance moderate distress, moderate pain, chronically ill - Eyes PERRL, normal ocular movement - ENT normal pinna, normal nares, normal mucosa, no hearing loss, no congestion - Neck no masses, no bruits, trachea midline, no lymphadectomy, no venous distension - Respiratory other (We will check how much is popsicles that she) - Cardiovascular Cardiovascular exam: Present: normal rate and rhythm ( is), RRR, +S1, +S2, tachycardia (Is) - Abdomen soft, non tender, bowel sounds (Patient has good active bowel sounds), wound ( Base of wound is clean), distended (No distention noted) - Integumentary no rash, no growths, no abnormal pigmentation - Neurologic normal coordination, normal sensation - Psychiatric oriented to time, oriented to person, oriented to place, speech is normal, memory intact, other - Labs 12/30/17 08:00 12/31/17 04:00 Diabetes panel 12/31/17 Range/Units 04:00 Sodium 139 (133-145) mmol/L Potassium 3.4 (3.3-5.1) mmol/L Chloride 92 L (96-108) mmol/L Carbon Dioxide 37 H (22-30) mmol/L BUN 36 H (8-23) mg/dl Creatinine 0.8 (0.6-1.1) mg/dl Glucose 131 H (70-105) mg/dL Calcium 9.3 (8.6-10.4) mg/dl AST 8 (0-37) U/l ALT 8 (0-40) U/l Alkaline Phosphatase 39 (39-117) U/L Total Protein 6.4 (5.9-8.4) gm/dL Albumin 4.7 (3.2-5.2) gm/dL Triglycerides 55 (<150) mg/dl Calcium panel 12/31/17 Range/Units 04:00 Calcium 9.3 (8.6-10.4) mg/dl Phosphorus 3.8 (2.7-4.5) mg/dL Albumin 4.7 (3.2-5.2) gm/dL Pituitary panel 12/31/17 Range/Units 04:00 Sodium 139 (133-145) mmol/L Potassium 3.4 (3.3-5.1) mmol/L Chloride 92 L (96-108) mmol/L Carbon Dioxide 37 H (22-30) mmol/L BUN 36 H (8-23) mg/dl Creatinine 0.8 (0.6-1.1) mg/dl Glucose 131 H (70-105) mg/dL Calcium 9.3 (8.6-10.4) mg/dl Adrenal panel 12/31/17 Range/Units 04:00 Sodium 139 (133-145) mmol/L Potassium 3.4 (3.3-5.1) mmol/L Chloride 92 L (96-108) mmol/L Carbon Dioxide 37 H (22-30) mmol/L BUN 36 H (8-23) mg/dl Creatinine 0.8 (0.6-1.1) mg/dl Glucose 131 H (70-105) mg/dL Calcium 9.3 (8.6-10.4) mg/dl Total Bilirubin 0.8 (0.0-1.0) mg/dL AST 8 (0-37) U/l ALT 8 (0-40) U/l Alkaline Phosphatase 39 (39-117) U/L Total Protein 6.4 (5.9-8.4) gm/dL Albumin 4.7 (3.2-5.2) gm/dL Assessment and Plan (1) Ileostomy status Status: Acute Assessment and plan: STOMA IS WORKING FINE NO BILIOUS DRAINAGE VIA RIDDHI DRAINS Current Visit: Yes (2) Protein-calorie malnutrition, moderate Status: Acute Assessment and plan: Continue TPN and advance as tolerated Add potassium phosphate to correct electrolytes Current Visit: No (3) Enterocutaneous fistula Status: Resolved Assessment and plan: No evidence of further leak at this time Current Visit: Yes (4) Volume overload Status: Resolved Assessment and plan: CONTINUE LASIX AND ALBUMIN INFUSIOn BUN is beginning to rise which may suggest intravenous volume contraction. Current Visit: Yes - Time Spent With Patient Total time spent is greater than 50% in coordination of care (as documented) at patient's floor/unit and/or counseling patient:
[2017-12-31] MEDS: ALPRAZolam 0.5 MG TABLET PO PRN (16:35)
[2017-12-31] MEDS: METOCLOPRAMIDE 10 MG/2 ML VIAL IV SCH ×2 (17:34→23:44)
[2017-12-31] MEDS: 0.9 % SODIUM CHLORIDE 10 ML SYRINGE IV PRN (17:53)
[2018-01-01] MEDS: ALPRAZolam 0.5 MG TABLET PO PRN ×2 (01:01→11:36)
[2018-01-01] MEDS: HYDROmorphone 2 MG/ML VIAL IV PRN ×10 (01:44→22:30)
[2018-01-01] MEDS: PIPERACILLIN SODIUM/TAZOBACTAM 3.375 GM in DEXTROSE 5% IN WATER 50 ML IV SCH ×4 (04:54→23:00)
[2018-01-01] MEDS: metroNIDAZOLE 500 MG/100 ML BAG IV SCH ×3 (05:24→18:28)
[2018-01-01] MEDS: INSULIN LISPRO 1 UNIT/0.01 ML UNIT SQ SCH ×3 (05:24→17:48)
[2018-01-01] MEDS: 0.9 % SODIUM CHLORIDE 10 ML SYRINGE IV SCH ×4 (05:25→21:25)
[2018-01-01 05:43] LABS: ALT/SGPT 6 U/l (0-40); Albumin 4.1 gm/dL (3.2-5.2); Albumin/Globulin Ratio 2.4 (1.0-2.3); Alkaline Phosphatase 41 U/L (39-117); Bilirubin,Direct < 0.2 mg/dL (0.0-0.3); Blood Urea Nitrogen 35 mg/dl (8-23); Gamma Glutamyl Transpeptidase 79 U/L (5-36); Uric Acid 3.3 mg/dL (2.5-8.0)
[2018-01-01] MEDS: PANTOPRAZOLE 40 MG VIAL IV SCH ×2 (07:09→17:31)
[2018-01-01] MEDS: METOCLOPRAMIDE 10 MG/2 ML VIAL IV SCH ×2 (08:29→16:28)
[2018-01-01] MEDS: 0.9 % SODIUM CHLORIDE 10 ML SYRINGE IV PRN ×4 (08:29→17:32)
[2018-01-01] MEDS: VANCOMYCIN 1,000 MG in 0.9 % SODIUM CHLORIDE 250 ML IV SCH (08:30)
[2018-01-01 08:34] LABS: Basophils # (Auto) 0 K/mcL (0.0-0.3); Basophils % (Auto) 0.1 % (0.0-2.0); Eosinophils # (Auto) 0.4 K/mcL (0.0-0.7); Eosinophils % (Auto) 4.3 % (0.0-7.0); Granulocytes % (Auto) 75.3 % (38.0-78.0); Lymphocytes # (Auto) 0.7 K/mcL (1.5-4.8); Lymphocytes % (Auto) 7.5 % (15.5-49.0); Mean Cell Volume 77.8 fL (80.0-100.0); Mean Corpuscular HGB Conc 31.6 g/dL (31.0-36.0); Mean Corpuscular Hemoglobin 24.6 pg (26.0-34.0); Monocytes # (Auto) 1.2 K/mcL (0.1-0.9); Monocytes % (Auto) 12.8 % (1.0-12.0); Platelet Count 356 K/mcL (140-440); RBC 3.22 M/mcL (4.00-5.20)
--- NOTE | 2018-01-01 08:57 | XRay Report ---
HISTORY: Reason for Exam:pna/ards FINDINGS: Moderate generalized consolidating infiltrates are again seen throughout both lungs with the greatest involvement in the lower lobes. There are small bilateral pleural effusions. Heart is partially obscured by the consolidated lung parenchyma, but does not appear to be grossly enlarged. No pneumothorax is present. The PICC line remains well-positioned. Overall there has been no significant change since 12/31/17. IMPRESSION: Persistent widespread pulmonary infiltrates with no significant change Interpreted and Authenticated by: Varghese Reich 01/01/18
[2018-01-01] MEDS ORDERED: DULoxetine 30 MG CAPSULE PO SCH (09:00)
--- NOTE | 2018-01-01 09:03 | XRay Report ---
HISTORY: Reason for Exam:FOLLOW -UP OF SMALL BOWEL OBSTRUCTION FINDINGS: The bowel pattern is normal without evidence of obstruction or ileus. No free intra-abdominal air is seen on the semiupright image. There are bands of atelectasis in both lung bases and small bilateral pleural effusions. Surgical drains are present in the midline of the pelvis and there are multiple surgical clips in the pelvis. The dilated colon seen preoperatively on 06/13/17 is no longer present. IMPRESSION: Normal bowel pattern without evidence of obstruction Bibasilar infiltrates which may be atelectasis Interpreted and Authenticated by: Varghese Reich 01/01/18
[2018-01-01] MEDS: ACETAMINOPHEN 1,000 MG/100 ML BOTTLE IV PRN (10:07)
[2018-01-01] MEDS ORDERED: BACITRACIN 50,000 UNIT VIAL IR ONE (11:47)
--- NOTE | 2018-01-01 11:57 | General Surgery Progress Note ---
Subjective Patient reports: still having pain, pain is less, tolerating liquids well, flatus, bowel movement, diarrhea, afebrile Narrative: Note initiated : 01/01/18 at 11:52 am Service Date, if different from initiated Date: [] Patient: Caroline Bellamy 77 y/o F admitted on 12/23/17 for Ileostomy Closure and Colorectal Anastomosis. 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 She complains that she feels bad all over and that she has diffuse pain. She has been somewhat uncooperative in her care but most of the things that we need to get being done. She is frustrated with nursing staff but this is because of her desire to have her way rather than the fact that they are doing all that they can for her. They have worked well with her in spite of her reluctance to do so. The crampy abdominal pain that she had on yesterday has decreased since the volume of liquids taken in has been limited. She has some tachypnea when she is agitated but breathes easily when she calms down. I have informed her that I will increase her Xanax to every [address] Collins is going to start her on an antidepressant. Though her chest x-ray is said to be about the same clinically her lungs are much clearer than on yesterday and her depth of inspiration is improved. She will be started on passive range of motion by physical therapy and this will be progressed as she physically tolerates. I anticipate that she will be resistant to this but the therapists are advised to be more forceful in spite of her resistance.] Objective Temp Pulse Resp BP Pulse Ox 99.5 F H 84 21 126/70 99 01/01/18 08:01 01/01/18 11:00 01/01/18 11:00 01/01/18 11:00 01/01/18 11:00 - Additional Data Intake & Output - Last 24 hours: Intake & Output 12/30/17 12/31/17 01/01/18 01/02/18 05:59 05:59 05:59 05:59 Intake Total 1100 / 1100 5276.4143 / 5276.4143 2753 / 2753 600 / 600 Output Total 4075 / 4075 4157 / 4157 2575 / 2575 420 / 420 Balance -2975 / -2975 1119.4143 / 1119.4143 178 / 178 180 / 180 Weight 145 lb 6.4 oz 150 lb 150 lb 0.64 oz - General physical appearance moderate distress, moderate pain, cachectic, chronically ill - Eyes PERRL, normal ocular movement - ENT normal pinna, normal nares, normal mucosa, no hearing loss, no congestion - Neck no masses (Is), no bruits, trachea midline, no lymphadectomy, no venous distension - Respiratory other (Patient has better ventilation plan on yesterday and there is a decrease in rhonchi and wheezes) - Cardiovascular Cardiovascular exam: Present: normal rate and rhythm, RRR, +S1, +S2, tachycardia. Absent: JVD - Abdomen tender, bowel sounds (Good active bowel sounds without distention) - Integumentary no rash, no growths, no abnormal pigmentation - Neurologic normal coordination, normal sensation - Psychiatric oriented to time, oriented to person, oriented to place, speech is normal, memory intact - Labs 01/01/18 07:33 01/01/18 04:00 Diabetes panel 01/01/18 Range/Units 04:00 Sodium 138 (133-145) mmol/L Potassium 4.0 (3.3-5.1) mmol/L Chloride 95 L (96-108) mmol/L Carbon Dioxide 33 H (22-30) mmol/L BUN 35 H (8-23) mg/dl Creatinine 0.7 (0.6-1.1) mg/dl Glucose 153 H (70-105) mg/dL Calcium 9.0 (8.6-10.4) mg/dl AST 8 (0-37) U/l ALT 6 (0-40) U/l Alkaline Phosphatase 41 (39-117) U/L Total Protein 5.8 L (5.9-8.4) gm/dL Albumin 4.1 (3.2-5.2) gm/dL Triglycerides 45 (<150) mg/dl Calcium panel 01/01/18 Range/Units 04:00 Calcium 9.0 (8.6-10.4) mg/dl Phosphorus 3.3 (2.7-4.5) mg/dL Albumin 4.1 (3.2-5.2) gm/dL Pituitary panel 01/01/18 Range/Units 04:00 Sodium 138 (133-145) mmol/L Potassium 4.0 (3.3-5.1) mmol/L Chloride 95 L (96-108) mmol/L Carbon Dioxide 33 H (22-30) mmol/L BUN 35 H (8-23) mg/dl Creatinine 0.7 (0.6-1.1) mg/dl Glucose 153 H (70-105) mg/dL Calcium 9.0 (8.6-10.4) mg/dl Adrenal panel 01/01/18 Range/Units 04:00 Sodium 138 (133-145) mmol/L Potassium 4.0 (3.3-5.1) mmol/L Chloride 95 L (96-108) mmol/L Carbon Dioxide 33 H (22-30) mmol/L BUN 35 H (8-23) mg/dl Creatinine 0.7 (0.6-1.1) mg/dl Glucose 153 H (70-105) mg/dL Calcium 9.0 (8.6-10.4) mg/dl Total Bilirubin 0.4 (0.0-1.0) mg/dL AST 8 (0-37) U/l ALT 6 (0-40) U/l Alkaline Phosphatase 41 (39-117) U/L Total Protein 5.8 L (5.9-8.4) gm/dL Albumin 4.1 (3.2-5.2) gm/dL Assessment and Plan (1) Ileostomy status Status: Acute Assessment and plan: STOMA IS WORKING FINE NO BILIOUS DRAINAGE VIA RIDDHI DRAINS Current Visit: Yes (2) Protein-calorie malnutrition, moderate Status: Acute Assessment and plan: Continue TPN and advance as tolerated Add potassium phosphate to correct electrolytes Current Visit: No (3) Enterocutaneous fistula Status: Resolved Assessment and plan: No evidence of further leak at this time Current Visit: Yes (4) Volume overload Status: Resolved Current Visit: Yes - Time Spent With Patient Total time spent is greater than 50% in coordination of care (as documented) at patient's floor/unit and/or counseling patient:
[2018-01-01] MEDS ORDERED: ALPRAZolam 0.5 MG TABLET PO PRN (12:04)
[2018-01-01] MEDS: [UNRECOGNIZED DRUG - REMARK] IV SCH (12:09)
[2018-01-01] MEDS: ALBUTEROL SULFATE 2.5 MG/3 ML NEBULIZER NEB PRN (14:20)
--- NOTE | 2018-01-01 14:31 | Internal Med Progress Note ---
Medical - PN: Subj Patient information: Note initiated : 01/01/18 at 2:28 pm Service Date, if different from initiated Date: [] Patient: Caroline Bellamy a 77 y/o F admitted on 12/23/17 for Ileostomy Closure and Colorectal Anastomosis. Chief Complaint: [] Interval history: December 23-Ms. Adiel Cardoso is a 77 year old F with a complex history with hospitalization May 2017 with diverticulitis perforation/peritonitis and prolonged hospital stay. 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 Hospitalization course was complicated by respiratory failure requiring mechanical ventilation and intra-abdominal infection with Pseudomonas. She underwent rehabilitation/TPN and prolonged hospitalization and was gradually recovering. She she now underwent expiratory laparotomy with extensive epidural lysis and small bowel resection. Postoperatively patient was unable to be extubated. Subsequently hospitalist service was consulted and patient was brought into the ICU on mechanical ventilation. patient currently on propofol/fentanyl. No family members available. systolics around 100. Patient has a line. Foleys catheter draining clear urine December 24-patient on mechanical ventilation. Map at 65 on 5 mics Levophed. Improving urine output. On light sedation. Weaning ventilator down to FiO2 35% , ABG 7.47/31/147. chest imaging revealed moderate left and small to moderat bibasilar infiltrate/effusion worsening since previous day. on Zosyn/Flagyl. Continue propofol/fentanyl for sedation. Start sedation holiday in a.m. for possible extubation. Continue weaning vasopressors. December 25- [place] [address]. Off vasopressors, T MAX 100, no chills. No anxiety, responding to verbal commands, on SBT/sedation holiday, Interval chest iamging shows atelectasis and pl effusion. alert. stable renal function. Diminishing urine output. A line and central line no localized bleeding or redness. No telemetry events. Possible extubation today.ABG 7.35/38/96 on 35% FiO2 and PEEP December 26-Successfully extubated yesterday morning. Remained stable overnight. The morning wanting to try to eat or drink something. WBC decreased from 23K to 19K. However, late this morning, developed leakage of bowel contents through part of her abdominal incision. Taken back to the operating room for exploratory laparotomy. Will likely require mechanical ventilation postoperatively. December 27-patient successfully underwent repair of small leak in the distal ileum yesterday. Remained intubated overnight. This morning during sedation vacation and spontaneous breathing trial, patient was saturating well on 35% room air, had good minute ventilation during the breathing trial. She is successfully extubated. We'll later, respirations became labored. She was receiving significant volumes of IV fluid with maintenance as well as supplements being infused. Responded well to low-dose furosemide with improvement in respiratory status. December 28-overnight, had recurrent respiratory distress, tachypnea, labored respirations with rales and wheezes. Responded to further furosemide about 1 AM. Had recurrent respiratory distress about 5:30 this morning. Respirations were labored, while on only 2 L nasal cannula, saturations are dropped from high 90s to low 90s. She had wheezes as well as rales on exam. Received 10 mg of IV furosemide with some urine output and mild improvement, however required BiPAP therapy. Receive further 20 mg of furosemide with brisk diuresis. Remains on BiPAP for respiratory support. Chest x-ray with worsening interstitial infiltrates. Exam also with significant jugular venous distention consistent with volume overload. Has been receiving albumin. December 29-patient continues on BiPAP. She is off for a while this morning, became dyspneic. Improved approximately 1-2 hours after morning furosemide dose. She tends to have more respiratory distress as the furosemide has worn off. Has been receiving furosemide every 8 hours with good diuresis. Renal functions remain stable. At one point was complaining to family that she did not want to keep going with therapy, though seems to improved later in the morning. December 30-on BiPAP most of the night. Urine output responding to 20 mg of Lasix every 6 hours, urine output tails off towards the end. Receiving albumin and Lasix scheduled. Overall respiratory status clinically improved. Changed over to high flow nasal cannula this morning which she is tolerating. She complains of feeling tired, doesn't think she is any better. december 31 Pt seen and examined, no acute overnight events. Patient's chest x-ray shows worsening infiltrate versus ARDS versus pneumonia. Patient is on Zosyn as well as Flagyl. Start on vancomycin IV. She has completed her albumin and Lasix dosing according to the nurse. X-ray chest to rule is worsened. Patient is on 35% FiO2 by high flow nasal cannula. She seems to be tolerating it well. Her oxygen level is maintained with this. The patient definitely is tachypneic. She still complains about significant abdominal pain. [id number]-hk-[id number] ultrasound done IVC reviewed, the patient has complete collapse of the IVC with inspiration. This indicates that the patient does not seem to be in fluid overload other is volume depleted after aggressive diuresis. For now we will just hold off on Lasix and monitor. january 01 Patient seen and examined, no acute overnight events. She did use BiPAP for a while and then went back to her high flow nasal cannula. Chest x-ray shows persistent infiltrates. Clinically she is not volume overloaded. Oxygen requirements are trending down. She does note that she is very tired and wanted to give up overnight but after talking with the family she decided to continue. I do not believe that the patient is end-stage at this point in time, and she has a chance of recovery. Hold off on diuresis for now. Start on Cymbalta 30 mg once a day, they should help her with some anxiety depression as well as chronic aches and pains. Plan of care reviewed with the patient as well as the family. Use BiPAP as much as tolerated. Pertinent ROS: Denies headache, dizziness Denies chest pain, palpitations Denies cough, present shortness of breath Present abdominal pain, no nausea or vomiting. - Constitutional Vitals: Vital Signs Temp Pulse Resp BP Pulse Ox 98.9 F 84 19 111/69 98 01/01/18 12:00 01/01/18 11:00 01/01/18 12:00 01/01/18 12:00 01/01/18 12:00 Period Temp Pulse Resp BP Sys/[place] Pulse Ox Last 24 Hr 98.4 F-99.9 F 80-107 14-47 88-142/48-85 94-100 Intake and Output 01/01/18 01/01/18 01/01/18 05:59 13:59 21:59 Intake Total 450 / 450 2243 / 2243 Output Total 645 / 645 520 / 520 Balance -195 / -195 1723 / 1723 Intake & Output: Intake & Output 01/01/18 01/01/18 01/01/18 05:59 13:59 21:59 Intake Total 450 / 450 2243 / 2243 Output Total 645 / 645 520 / 520 Balance -195 / -195 1723 / 1723 Intake: IV 450 / 450 2143 / 2143 OFIRMEV 1,000 mg In 100 ml @ 100 / 100 200 mls/hr IV Q6HP PRN Rx#: [id number] Intralipid 20% 250 ml In Premix 250 / 250 1 Bag @ 25 mls/hr IV TuThSa@ 1600 [facility] Rx#:[id number] Magnesium Sulfate 16.24 Meq 1543 / 1543 Potassium Phosphate 40 Meq Infuvite Adult 10 ml Selenium 60 Mcg Potassium Chloride 100 Meq Sodium Phosphate 30 Mmol Sodium Chloride 40 Meq In Clinimix 5%-20% Solution 2,000 ml @ 65 mls/hr IV Q24H [facility] Rx#: [id number] Zosyn 3.375 gm In Dextrose 5% 100 / 100 50 / 50 in Water 50 ml @ 100 mls/hr IV Q6H [facility] Rx#:[id number] Vancomycin 1,000 mg In Sodium 250 / 250 Chloride 0.9% 250 ml @ 250 mls/ hr IV Q24H [facility] Rx#:[id number] Oral 100 / 100 Output: Drainage 15 / 15 RIDDHI A 15 / 15 RIDDHI B 0 / 0 Urine Catheter Amount 600 / 600 520 / 520 Stool 30 / 30 Other: Stool Size Small Stool Color Green Stool Consistency Liquid Exam: Constitutional; Afebrile, cooperative, alert, not in distress. Eyes- No icterus, , No periorbital swelling Ears- Ext ear normal, hearing normal to conversation. Neck- Midline trachea, supple Respiratory system: Air Entry equal on both sides, No wheezing, Patient is tachypneic, air entry is better today CVS- Rate rhythm regular, S1,S2 heard, no gallop, no rub. PRENATAL NURSE- AOOx3, moving all extremities, no gross focal deficit noted. Medical - PN: Obj Da - Labs CBC & Chem 7: 01/01/18 07:33 01/01/18 04:00 Labs: Abnormal Lab Results 01/01/18 01/01/18 01/01/18 07:33 07:33 04:00 RBC 3.22 L Hgb 7.9 L Hct 25.1 L MCV 77.8 L MCH 24.6 L RDW 16.0 H Gran % Lymph % (Auto) 7.5 L [place] % (Auto) 12.8 H Lymph # (Auto) 0.7 L [place] # (Auto) 1.2 H Chloride 95 L Carbon Dioxide 33 H BUN 35 H Glucose 153 H Direct Bilirubin GGT 79 H NT-Pro-B Natriuret Pep 9319.0 H Total Protein 5.8 L Globulin 1.7 L Albumin/Globulin Ratio 2.4 H Prealbumin 12/31/17 12/30/17 12/30/17 04:00 08:00 04:00 RBC 2.94 L Hgb 7.5 L Hct 22.8 L MCV 77.6 L MCH 25.5 L RDW 16.0 H Gran % 81.8 H Lymph % (Auto) 4.2 L [place] % (Auto) Lymph # (Auto) 0.3 L [place] # (Auto) Chloride 92 L 95 L Carbon Dioxide 37 H 35 H BUN 36 H 28 H Glucose 131 H 125 H Direct Bilirubin 0.4 H GGT 87 H 107 H NT-Pro-B Natriuret Pep Total Protein Globulin 1.7 L 2.0 L Albumin/Globulin Ratio 2.8 H Prealbumin 15.1 L Meds: Medications Albuterol Sulfate (Ventolin) 2.5 mg NEB Q2HP PRN PRN Reason: Shortness Of Breath Last Admin: 12/28/17 13:54 Dose: 2.5 mg Alprazolam (Xanax) 0.5 mg PO Q6HP PRN PRN Reason: Anxiety Artificial Tears (Artificial Tears Ophth Drops) 1 gtt OU QIDP PRN PRN Reason: Dry Eye(s) Last Admin: 12/29/17 13:51 Dose: 1 gtt Dextrose (Dextrose 50%) 25 ml IV UD PRN PRN Reason: Hypoglycemia Diagnostic Test (Pha) (Accu-Chek) 1 each FS Q6 [facility] Last Admin: 01/01/18 12:32 Dose: 1 each Duloxetine HCl (Cymbalta) 30 mg PO DAILY [facility] Glucose Oxid/Lactoperoxid/Muramidas (Biotene) 1 each TOPICAL PRN PRN PRN Reason: Dry Mouth Last Admin: 12/31/17 16:09 Dose: 1 each Heparin Sodium (Porcine) (Heparin Flush) 2 ml IV Q12 [facility]ISS Last Admin: 01/01/18 08:30 Dose: 2 ml Hydromorphone HCl (Dilaudid) 1 mg IV Q2HP PRN PRN Reason: PAIN LEVEL > 6 Last Admin: 01/01/18 14:19 Dose: 1 mg Heparin Sodium/Sodium Chloride (Heparin/Ns) 500 mls @ 0 mls/hr IV .Q0M KRISS; KVO PRN Reason: Protocol Last Admin: 12/31/17 07:05 Dose: 3 mls/hr Metronidazole (Flagyl) 500 mg in 100 mls @ 100 mls/hr IV Q6H [facility] Last Infusion: 01/01/18 12:37 Dose: Infused Norepinephrine Bitartrate 16 (mg/ Sodium Chloride) 250 mls @ 9.37 mls/hr IV Q24H PRN; Protocol; 10 MCG/MIN PRN Reason: Hypotension Last Titration: 12/27/17 06:49 Dose: 0 mcg/min, 0 mls/hr Acetaminophen (Ofirmev) 1,000 mg in 100 mls @ 200 mls/hr IV Q6HP PRN PRN Reason: Pain Last Infusion: 01/01/18 10:37 Dose: Infused Piperacillin Sod/Tazobactam (Sod 3.375 gm/ Dextrose) 50 mls @ 100 mls/hr IV Q6H [facility] Last Infusion: 01/01/18 11:18 Dose: Infused Fat Emulsion Intravenous 250 (ml/ Premix) 250 mls @ 25 mls/hr IV TuThSa@1600 [facility] Last Infusion: 01/01/18 03:00 Dose: Infused Magnesium Sulfate 16.24 meq/Potassium Phosphate 40 meq/Multivitamins/Minerals 10 ml/Selenium 60 mcg/ Potassium Chloride 100 meq/ Sodium Phosphate 30 mmol/ Sodium Chloride 40 meq/ Amino Acids 2,094.5909 mls @ 65 mls/hr IV Q24H [facility] Last Admin: 01/01/18 12:09 Dose: 65 mls/hr Vancomycin HCl 1,000 mg/ (Sodium Chloride) 250 mls @ 250 mls/hr IV Q24H [facility] Last Infusion: 01/01/18 09:30 Dose: Infused Insulin Human Lispro (Humalog) 0 unit SQ Q6 [facility] PRN Reason: Protocol Last Admin: 01/01/18 12:32 Dose: Not Given Metoclopramide HCl (Reglan) 5 mg IV Q8H [facility] Last Admin: 01/01/18 08:29 Dose: 5 mg Ondansetron HCl (Zofran) 4 mg IV Q4HP PRN PRN Reason: Nausea And Vomiting Last Admin: 12/30/17 16:24 Dose: 4 mg Pantoprazole Sodium (Protonix) 40 mg IV BIDAC [facility] Last Admin: 01/01/18 07:09 Dose: 40 mg Promethazine HCl (Phenergan) 12.5 mg IV Q4HP PRN PRN Reason: Nausea And Vomiting Sodium Chloride (Saline Flush) 10 ml IV UD PRN PRN Reason: FLUSH Last Admin: 01/01/18 08:29 Dose: 10 ml Sodium Chloride (Saline Flush) 10 ml IV Q8 [facility] Last Admin: 01/01/18 14:20 Dose: 10 ml Vancomycin HCl (Vancomycin Per Pharmacy) 1 order IV UD [facility] Medical - PN: A/P - Time Spent With Patient Total time spent is greater than 50% in coordination of care (as documented) at patient's floor/unit and/or counseling patient: - Narrative A/P Narrative: 77-year-old female, status post exploratory laparotomy in attempt for ileostomy takedown after prior Clark's procedure last May. Unable to accomplish anastomosis due to friable tissues. Status post exploratory laparotomy. Management per surgery. Still requires delayed closure of abdominal wound. Hospitalist consult for postoperative respiratory failure and mechanical ventilation. Successfully extubated late Thursday morning. s/p extubation day 5, she later Worsening hypoxic respiratory failure Thursday afternoon, improved after furosemide, worsened again overnight Thursday 2. Thursday was diuresed, responding after each dose of furosemide. On exam Thursday, still has evidence of volume overload, suspect fluid overload/pulmonary edema secondary to volume shifts. Renal function is tolerating diuresis. Echocardiogram with good LV function. Hygzy-fs-wyum ultrasound done, IVC noted to be completely collapsed with inspiratory effort. X ray today s shows bilateral edema and infiltrate possible ARDS. Patient likely has noncardiogenic pulmonary edema. Plan: hold off lasix and albumin now monitor for now. Pulmonary findings related to non cardiogenic pulmonary edema vs ARDS vs infection. Continue on Hiflo nasal canula for oxygen. wean off as tolerated. Consider bipap support as much as tolerated. Possible HCAP PNA Pt already on zosy, add vanco for now and monitor. Acute hypoxic respiratory failure. Now secondary to volume overload from fluid shifts Plan: As above. Anemia: Hb 7.9, may need transfusion if drops further. Monitor for now. Aqpdvua-[id number]-tynfzbw pain. Cymbalta started today. Continue with pain management as per surgery. F/E/N: On TPN. Medical - PN: Qual - VTE Deep Vein Thrombosis/Pulmonary Embolism Present on Admission: No Procedures - Arterial Line Size (Gauge): 20
[2018-01-01] MEDS ORDERED: FUROSEMIDE 20 MG/2 ML VIAL IV ONE (15:04)
[2018-01-01] MEDS: ONDANSETRON 4 MG/2 ML VIAL IV PRN (15:30)
[2018-01-01] MEDS: DULoxetine 30 MG CAPSULE PO SCH (15:57)
--- NOTE | 2018-01-01 16:10 | XRay Report ---
HISTORY: Reason for Exam:shortness of breath follow-up pulmonary infiltrates FINDINGS: Widespread consolidating infiltrates are present in both lungs with the greatest involvement in the lower lobes and around the marlene. Small bilateral pleural effusions are present. The heart is partially obscured by the consolidated lung parenchyma. There has been no significant change since 8:08 AM on the same date. PICC line remains well-positioned and there is no pneumothorax. IMPRESSION: Stable widespread pulmonary infiltrates Interpreted and Authenticated by: Varghese Reich 01/01/18
[2018-01-01] MEDS: POLYVINYL ALCOHOL OPHTH DROPS 15ML BOTTLE OU PRN (21:25)
[2018-01-02] MEDS: METOCLOPRAMIDE 10 MG/2 ML VIAL IV SCH ×3 (00:49→15:44)
[2018-01-02] MEDS: INSULIN LISPRO 1 UNIT/0.01 ML UNIT SQ SCH ×4 (00:49→17:50)
[2018-01-02] MEDS: metroNIDAZOLE 500 MG/100 ML BAG IV SCH ×4 (00:50→18:15)
[2018-01-02] MEDS: ACETAMINOPHEN 1,000 MG/100 ML BOTTLE IV PRN ×2 (02:32→16:46)
[2018-01-02] MEDS: HYDROmorphone 2 MG/ML VIAL IV PRN ×4 (05:45→15:43)
[2018-01-02] MEDS: PIPERACILLIN SODIUM/TAZOBACTAM 3.375 GM in DEXTROSE 5% IN WATER 50 ML IV SCH ×4 (05:46→22:56)
[2018-01-02] MEDS: 0.9 % SODIUM CHLORIDE 10 ML SYRINGE IV SCH ×4 (05:47→21:26)
[2018-01-02 05:56] LABS: Basophils # (Auto) 0 K/mcL (0.0-0.3); Basophils % (Auto) 0.1 % (0.0-2.0); Eosinophils # (Auto) 0.2 K/mcL (0.0-0.7); Eosinophils % (Auto) 2.2 % (0.0-7.0); Granulocytes % (Auto) 86.6 % (38.0-78.0); Lymphocytes # (Auto) 0.5 K/mcL (1.5-4.8); Lymphocytes % (Auto) 4.9 % (15.5-49.0); Mean Cell Volume 78.5 fL (80.0-100.0); Mean Corpuscular HGB Conc 31.7 g/dL (31.0-36.0); Mean Corpuscular Hemoglobin 24.9 pg (26.0-34.0); Monocytes # (Auto) 0.6 K/mcL (0.1-0.9); Monocytes % (Auto) 6.2 % (1.0-12.0); Platelet Count 391 K/mcL (140-440); RBC 3.11 M/mcL (4.00-5.20); Red Cell Distribution Width 15.7 % (11.5-14.5)
[2018-01-02] MEDS: 0.9 % SODIUM CHLORIDE 10 ML SYRINGE IV PRN ×7 (06:16→11:34)
[2018-01-02] MEDS: POLYVINYL ALCOHOL OPHTH DROPS 15ML BOTTLE OU PRN (06:45)
[2018-01-02 06:55] LABS: ALT/SGPT 7 U/l (0-40); Albumin 4.3 gm/dL (3.2-5.2); Albumin/Globulin Ratio 2.2 (1.0-2.3); Alkaline Phosphatase 51 U/L (39-117); Bilirubin,Direct < 0.2 mg/dL (0.0-0.3); Blood Urea Nitrogen 33 mg/dl (8-23); Gamma Glutamyl Transpeptidase 86 U/L (5-36); Uric Acid 2.6 mg/dL (2.5-8.0)
[2018-01-02] MEDS: PANTOPRAZOLE 40 MG VIAL IV SCH ×2 (07:18→16:45)
[2018-01-02] MEDS ORDERED: FUROSEMIDE 20 MG/2 ML VIAL IV SCH (09:00)
--- NOTE | 2018-01-02 09:04 | Internal Med Progress Note ---
Medical - PN: Subj Patient information: Note initiated : 01/02/18 at 9:01 am Service Date, if different from initiated Date: [] Patient: Caroline Bellamy a 77 y/o F admitted on 12/23/17 for Ileostomy Closure and Colorectal Anastomosis. Chief Complaint: [] Interval history: December 23-Ms. Adiel Cardoso is a 77 year old F with a complex history with hospitalization May 2017 with diverticulitis perforation/peritonitis and prolonged hospital stay. 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 Hospitalization course was complicated by respiratory failure requiring mechanical ventilation and intra-abdominal infection with Pseudomonas. She underwent rehabilitation/TPN and prolonged hospitalization and was gradually recovering. She she now underwent expiratory laparotomy with extensive epidural lysis and small bowel resection. Postoperatively patient was unable to be extubated. Subsequently hospitalist service was consulted and patient was brought into the ICU on mechanical ventilation. patient currently on propofol/fentanyl. No family members available. systolics around 100. Patient has a line. Foleys catheter draining clear urine December 24-patient on mechanical ventilation. Map at 65 on 5 mics Levophed. Improving urine output. On light sedation. Weaning ventilator down to FiO2 35% , ABG 7.47/31/147. chest imaging revealed moderate left and small to moderat bibasilar infiltrate/effusion worsening since previous day. on Zosyn/Flagyl. Continue propofol/fentanyl for sedation. Start sedation holiday in a.m. for possible extubation. Continue weaning vasopressors. December 25- [place] [id number]. Off vasopressors, T MAX 100, no chills. No anxiety, responding to verbal commands, on SBT/sedation holiday, Interval chest iamging shows atelectasis and pl effusion. alert. stable renal function. Diminishing urine output. A line and central line no localized bleeding or redness. No telemetry events. Possible extubation today.ABG 7.35/38/96 on 35% FiO2 and PEEP December 26-Successfully extubated yesterday morning. Remained stable overnight. The morning wanting to try to eat or drink something. WBC decreased from 23K to 19K. However, late this morning, developed leakage of bowel contents through part of her abdominal incision. Taken back to the operating room for exploratory laparotomy. Will likely require mechanical ventilation postoperatively. December 27-patient successfully underwent repair of small leak in the distal ileum yesterday. Remained intubated overnight. This morning during sedation vacation and spontaneous breathing trial, patient was saturating well on 35% room air, had good minute ventilation during the breathing trial. She is successfully extubated. We'll later, respirations became labored. She was receiving significant volumes of IV fluid with maintenance as well as supplements being infused. Responded well to low-dose furosemide with improvement in respiratory status. December 28-overnight, had recurrent respiratory distress, tachypnea, labored respirations with rales and wheezes. Responded to further furosemide about 1 AM. Had recurrent respiratory distress about 5:30 this morning. Respirations were labored, while on only 2 L nasal cannula, saturations are dropped from high 90s to low 90s. She had wheezes as well as rales on exam. Received 10 mg of IV furosemide with some urine output and mild improvement, however required BiPAP therapy. Receive further 20 mg of furosemide with brisk diuresis. Remains on BiPAP for respiratory support. Chest x-ray with worsening interstitial infiltrates. Exam also with significant jugular venous distention consistent with volume overload. Has been receiving albumin. December 29-patient continues on BiPAP. She is off for a while this morning, became dyspneic. Improved approximately 1-2 hours after morning furosemide dose. She tends to have more respiratory distress as the furosemide has worn off. Has been receiving furosemide every 8 hours with good diuresis. Renal functions remain stable. At one point was complaining to family that she did not want to keep going with therapy, though seems to improved later in the morning. December 30-on BiPAP most of the night. Urine output responding to 20 mg of Lasix every 6 hours, urine output tails off towards the end. Receiving albumin and Lasix scheduled. Overall respiratory status clinically improved. Changed over to high flow nasal cannula this morning which she is tolerating. She complains of feeling tired, doesn't think she is any better. december 31 Pt seen and examined, no acute overnight events. Patient's chest x-ray shows worsening infiltrate versus ARDS versus pneumonia. Patient is on Zosyn as well as Flagyl. Start on vancomycin IV. She has completed her albumin and Lasix dosing according to the nurse. X-ray chest to rule is worsened. Patient is on 35% FiO2 by high flow nasal cannula. She seems to be tolerating it well. Her oxygen level is maintained with this. The patient definitely is tachypneic. She still complains about significant abdominal pain. [id number] ultrasound done IVC reviewed, the patient has complete collapse of the IVC with inspiration. This indicates that the patient does not seem to be in fluid overload other is volume depleted after aggressive diuresis. For now we will just hold off on Lasix and monitor. january 01 Patient seen and examined, no acute overnight events. She did use BiPAP for a while and then went back to her high flow nasal cannula. Chest x-ray shows persistent infiltrates. Clinically she is not volume overloaded. Oxygen requirements are trending down. She does note that she is very tired and wanted to give up overnight but after talking with the family she decided to continue. I do not believe that the patient is end-stage at this point in time, and she has a chance of recovery. Hold off on diuresis for now. Start on Cymbalta 30 mg once a day, they should help her with some anxiety depression as well as chronic aches and pains. Plan of care reviewed with the patient as well as the family. Use BiPAP as much as tolerated. january 02 Pt seen examined, no acute overnight issues, tolerating bipap intermittently had a better night pain is also better she is in better spirits today. family by the bed side She had one episode of shortness of breath yesterday, which improved with duonebs. Her IVC also showed more distention than the previous day, although still collapsing completely. Will keep the patient on low dose of lasix 20mg dailiy to keep her lungs as dry as possible She is oxygenating well, will wean off the hi moon nasal canula today if she is able to. Pertinent ROS: Denies headache, dizziness Denies chest pain, palpitations Denies cough or shortness of breath controlled abdominal pain, no nausea or vomiting. - Constitutional Vitals: Vital Signs Temp Pulse Resp BP Pulse Ox 98.7 F 88 21 127/62 99 01/01/18 16:00 01/01/18 23:59 01/01/18 23:59 01/01/18 19:02 01/01/18 23:59 Period Temp Pulse Resp BP Sys/[place] Pulse Ox Last 24 Hr 98.7 F-98.9 F 84-108 17-28 104-136/60-77 94-100 Intake and Output 01/01/18 01/02/18 01/02/18 21:59 05:59 13:59 Intake Total 225 / 225 250 / 250 150 / 150 Output Total 2119 Balance -189 / -1895 250 / 250 150 / 150 Intake & Output: Intake & Output 01/01/18 01/02/18 01/02/18 21:59 05:59 13:59 Intake Total 225 / 225 250 / 250 150 / 150 Output Total 2119 Balance -1894 / -189 250 / 250 150 / 150 Intake: IV 150 / 150 250 / 250 150 / 150 OFIRMEV 1,000 mg In 100 ml @ 100 / 100 200 mls/hr IV Q6HP PRN Rx#: [id number] Zosyn 3.375 gm In Dextrose 5% 50 / 50 50 / 50 50 / 50 in Water 50 ml @ 100 mls/hr IV Q6H KRISS Rx#:[id number] Oral 75 / 75 Output: Drainage RIDDHI A RIDDHI B Urine Catheter Amount 1999 Stool 100 / 100 Exam: Constitutional; Afebrile, cooperative, alert, not in distress. Eyes- No icterus, , No periorbital swelling Ears- Ext ear normal, hearing hard to conversation, no hearing aids Neck- Midline trachea, supple Respiratory system: Air Entry equal on both sides,justin basilar crackles, but air entry is good, improved from yesterday. CVS- Rate rhythm regular, S1,S2 heard, no gallop, no rub. Abdomen- ostomy in place, in dressing [employer]- AOOx3, moving all extremities, no gross focal deficit noted. Medical - PN: Obj Da - Labs CBC & Chem 7: 01/02/18 04:00 01/02/18 04:00 Labs: Abnormal Lab Results 01/02/18 01/02/18 01/02/18 04:00 04:00 04:00 RBC 3.11 L Hgb 7.7 L Hct 24.4 L MCV 78.5 L MCH 24.9 L RDW 15.7 H Gran % 86.6 H Lymph % (Auto) 4.9 L [place] % (Auto) Gran # 8.6 H Lymph # (Auto) 0.5 L [place] # (Auto) Potassium 5.4 H Chloride Carbon Dioxide BUN 33 H Glucose 126 H GGT 86 H NT-Pro-B Natriuret Pep 5915.0 H Total Protein Globulin 2.0 L Albumin/Globulin Ratio 01/01/18 01/01/18 01/01/18 07:33 07:33 04:00 RBC 3.22 L Hgb 7.9 L Hct 25.1 L MCV 77.8 L MCH 24.6 L RDW 16.0 H Gran % Lymph % (Auto) 7.5 L [place] % (Auto) 12.8 H Gran # Lymph # (Auto) 0.7 L [place] # (Auto) 1.2 H Potassium Chloride 95 L Carbon Dioxide 33 H BUN 35 H Glucose 153 H GGT 79 H NT-Pro-B Natriuret Pep 9319.0 H Total Protein 5.8 L Globulin 1.7 L Albumin/Globulin Ratio 2.4 H 12/31/17 04:00 RBC Hgb Hct MCV MCH RDW Gran % Lymph % (Auto) [place] % (Auto) Gran # Lymph # (Auto) [place] # (Auto) Potassium Chloride 92 L Carbon Dioxide 37 H BUN 36 H Glucose 131 H GGT 87 H NT-Pro-B Natriuret Pep Total Protein Globulin 1.7 L Albumin/Globulin Ratio 2.8 H Meds: Medications Albuterol Sulfate (Ventolin) 2.5 mg NEB Q2HP PRN PRN Reason: Shortness Of Breath Last Admin: 01/01/18 14:20 Dose: 2.5 mg Alprazolam (Xanax) 0.5 mg PO Q6HP PRN PRN Reason: Anxiety Artificial Tears (Artificial Tears Ophth Drops) 1 gtt OU QIDP PRN PRN Reason: Dry Eye(s) Last Admin: 01/02/18 06:45 Dose: 1 gtt Dextrose (Dextrose 50%) 25 ml IV UD PRN PRN Reason: Hypoglycemia Diagnostic Test (Pha) (Accu-Chek) 1 each FS Q6 KRISS Last Admin: 01/02/18 07:10 Dose: 1 each Duloxetine HCl (Cymbalta) 30 mg PO DAILY [facility] Last Admin: 01/01/18 15:57 Dose: 30 mg Furosemide (Lasix) 20 mg IV DAILY [facility] Last Admin: 01/02/18 08:08 Dose: 20 mg Glucose Oxid/Lactoperoxid/Muramidas (Biotene) 1 each TOPICAL PRN PRN PRN Reason: Dry Mouth Last Admin: 12/31/17 16:09 Dose: 1 each Heparin Sodium (Porcine) (Heparin Flush) 2 ml IV Q12 [facility] Last Admin: 01/01/18 21:26 Dose: 2 ml Hydromorphone HCl (Dilaudid) 1 mg IV Q2HP PRN PRN Reason: PAIN LEVEL > 6 Last Admin: 01/02/18 08:03 Dose: 1 mg Heparin Sodium/Sodium Chloride (Heparin/Ns) 500 mls @ 0 mls/hr IV .Q0M KRISS; KVO PRN Reason: Protocol Last Admin: 12/31/17 07:05 Dose: 3 mls/hr Metronidazole (Flagyl) 500 mg in 100 mls @ 100 mls/hr IV Q6H [facility] Last Infusion: 01/02/18 06:46 Dose: Infused Norepinephrine Bitartrate 16 (mg/ Sodium Chloride) 250 mls @ 9.37 mls/hr IV Q24H PRN; Protocol; 10 MCG/MIN PRN Reason: Hypotension Last Titration: 12/27/17 06:49 Dose: 0 mcg/min, 0 mls/hr Acetaminophen (Ofirmev) 1,000 mg in 100 mls @ 200 mls/hr IV Q6HP PRN PRN Reason: Pain Last Infusion: 01/02/18 03:05 Dose: Infused Piperacillin Sod/Tazobactam (Sod 3.375 gm/ Dextrose) 50 mls @ 100 mls/hr IV Q6H [facility] Last Infusion: 01/02/18 06:16 Dose: Infused Fat Emulsion Intravenous 250 (ml/ Premix) 250 mls @ 25 mls/hr IV TuThSa@1600 [facility] Last Infusion: 01/01/18 03:00 Dose: Infused Magnesium Sulfate 16.24 meq/Potassium Phosphate 40 meq/Multivitamins/Minerals 10 ml/Selenium 60 mcg/ Potassium Chloride 100 meq/ Sodium Phosphate 30 mmol/ Sodium Chloride 40 meq/ Amino Acids 2,094.5909 mls @ 65 mls/hr IV Q24H [facility] Last Admin: 01/01/18 12:09 Dose: 65 mls/hr Vancomycin HCl 1,000 mg/ (Sodium Chloride) 250 mls @ 250 mls/hr IV Q24H [facility] Last Infusion: 01/01/18 09:30 Dose: Infused Insulin Human Lispro (Humalog) 0 unit SQ Q6 [facility] PRN Reason: Protocol Last Admin: 01/02/18 08:02 Dose: 2 unit Metoclopramide HCl (Reglan) 5 mg IV Q8H [facility] Last Admin: 01/02/18 08:03 Dose: 5 mg Ondansetron HCl (Zofran) 4 mg IV Q4HP PRN PRN Reason: Nausea And Vomiting Last Admin: 01/01/18 15:30 Dose: 4 mg Pantoprazole Sodium (Protonix) 40 mg IV BIDAC [facility] Last Admin: 01/02/18 07:18 Dose: 40 mg Promethazine HCl (Phenergan) 12.5 mg IV Q4HP PRN PRN Reason: Nausea And Vomiting Sodium Chloride (Saline Flush) 10 ml IV UD PRN PRN Reason: FLUSH Last Admin: 01/02/18 08:08 Dose: 10 ml Sodium Chloride (Saline Flush) 10 ml IV Q8 [facility] Last Admin: 01/02/18 07:18 Dose: 10 ml Vancomycin HCl (Vancomycin Per Pharmacy) 1 order IV [facility] [place], [place] Medical - PN: A/P - Time Spent With Patient Total time spent is greater than 50% in coordination of care (as documented) at patient's floor/unit and/or counseling patient: - Narrative A/P Narrative: 77-year-old female, status post exploratory laparotomy in attempt for ileostomy takedown after prior Clark's procedure last May. Unable to accomplish anastomosis due to friable tissues. Status post exploratory laparotomy. Management per surgery. Still requires delayed closure of abdominal wound. Hospitalist consult for postoperative respiratory failure and mechanical ventilation. s/p exubation, day 6 today Had deterioration after extubation eneding bipap Presently on hiflo nasal canula, using bipap intermittently Will repeat xray wean off hi moon canula, not much oxygen needs any more use regular oxygen if needed. Prn bipap support if resp condition worsens low dose lasix daily to keep lungs as dry as possible. Possible HCAP PNA Pt already on zosyn, add vanco for now and monitor. d3 today of vanco, plan for 7 days. Acute hypoxic respiratory failure. Now secondary to volume overload from fluid shifts Plan: As above. Anemia: Hb 7.7, may need transfusion if hb < 7.0 anxiety - depression-chronic pain. Cymbalta started today. Continue with pain management as per surgery. Pt is doing well with cymbalta. F/E/N: On TPN. dvt scd Medical - PN: Qual - VTE Deep Vein Thrombosis/Pulmonary Embolism Present on Admission: No Procedures - Arterial Line Size (Gauge): 20
[2018-01-02] MEDS: DULoxetine 30 MG CAPSULE PO SCH (09:15)
--- NOTE | 2018-01-02 09:23 | XRay Report ---
HISTORY: Reason for Exam:pna/ ards/ FINDINGS: There are diffuse infiltrates in both lungs with the greatest consolidation in both lower lobes. Small bilateral pleural effusions are still present. There has been mild improvement in the upper lobes since 01/01/18. There has been little change in the lower half of both lungs. The heart remains obscured. PICC line is well-positioned. There is no pneumothorax. IMPRESSION: Persistent bilateral infiltrates with mild improvement in the upper lobes Interpreted and Authenticated by: Varghese Reich 01/02/18
[2018-01-02] MEDS: VANCOMYCIN 1,000 MG in 0.9 % SODIUM CHLORIDE 250 ML IV SCH (11:35)
[2018-01-02] MEDS: [UNRECOGNIZED DRUG - REMARK] IV SCH (12:33)
--- NOTE | 2018-01-02 13:39 | General Surgery Progress Note ---
Subjective Patient reports: feels better, pain is less, flatus, bowel movement, diarrhea, afebrile Narrative: Note initiated : 01/02/18 at 1:37 pm Service Date, if different from initiated Date: [] Patient: Caroline Bellamy 77 y/o F admitted on 12/23/17 for Ileostomy Closure and Colorectal Anastomosis. Chief Complaint: [Patient states that she feels better overall. She had a nice peaceful, restful night. Her generalized aches and pains are better. She has been started on Cymbalta at 30 mg daily and clinically she is emotionally more stable. She has no respiratory difficulties and has not needed BiPAP as much. White blood count 10; hemoglobin 7.7; hematocrit 24.4; BNP 5915.] Objective Temp Pulse Resp BP Pulse Ox 98.2 F 80 17 114/72 99 01/02/18 00:01 01/02/18 09:01 01/02/18 09:01 01/02/18 09:01 01/02/18 09:01 - Additional Data Intake & Output - Last 24 hours: Intake & Output 12/31/17 01/01/18 01/02/18 01/03/18 05:59 05:59 05:59 05:59 Intake Total 5276.4143 / 5276.4143 2753 / 2753 2993 / 2993 2386 / 2386 Output Total 4157 / 4157 2575 / 2575 4190 / 4190 1420 / 1420 Balance 1119.4143 / 1119.4143 178 / 178 -1197 / -1197 966 / 966 Weight 150 lb 150 lb 0.64 oz 145 lb 9.6 oz - General physical appearance well developed, well nourished, no distress, chronically ill - Eyes PERRL, normal ocular movement - ENT normal pinna, normal nares, normal mucosa, no hearing loss, no congestion - Neck no masses, trachea midline, no venous distension - Respiratory other (Lungs are much clear though she does have some coarse wheezes in mid lung alves; no rales heard) - Cardiovascular Cardiovascular exam: Present: normal rate and rhythm, JVD, RRR, +S1, +S2 - Abdomen non tender, bowel sounds ( Good active bowel sounds; incision looks good), surgical scars (none), masses (none) - Integumentary no rash, no growths, no abnormal pigmentation - Neurologic normal coordination, normal sensation - Musculoskeletal normal gait, normal posture - Psychiatric oriented to time, oriented to person, oriented to place, speech is normal, memory intact - Labs 01/02/18 04:00 01/02/18 04:00 Diabetes panel 01/02/18 Range/Units 04:00 Sodium 136 (133-145) mmol/L Potassium 5.4 H (3.3-5.1) mmol/L Chloride 96 (96-108) mmol/L Carbon Dioxide 30 (22-30) mmol/L BUN 33 H (8-23) mg/dl Creatinine 0.6 (0.6-1.1) mg/dl Glucose 126 H (70-105) mg/dL Calcium 9.3 (8.6-10.4) mg/dl AST 9 (0-37) U/l ALT 7 (0-40) U/l Alkaline Phosphatase 51 (39-117) U/L Total Protein 6.3 (5.9-8.4) gm/dL Albumin 4.3 (3.2-5.2) gm/dL Triglycerides 31 (<150) mg/dl Calcium panel 01/02/18 Range/Units 04:00 Calcium 9.3 (8.6-10.4) mg/dl Phosphorus 3.5 (2.7-4.5) mg/dL Albumin 4.3 (3.2-5.2) gm/dL Pituitary panel 01/02/18 Range/Units 04:00 Sodium 136 (133-145) mmol/L Potassium 5.4 H (3.3-5.1) mmol/L Chloride 96 (96-108) mmol/L Carbon Dioxide 30 (22-30) mmol/L BUN 33 H (8-23) mg/dl Creatinine 0.6 (0.6-1.1) mg/dl Glucose 126 H (70-105) mg/dL Calcium 9.3 (8.6-10.4) mg/dl Adrenal panel 01/02/18 Range/Units 04:00 Sodium 136 (133-145) mmol/L Potassium 5.4 H (3.3-5.1) mmol/L Chloride 96 (96-108) mmol/L Carbon Dioxide 30 (22-30) mmol/L BUN 33 H (8-23) mg/dl Creatinine 0.6 (0.6-1.1) mg/dl Glucose 126 H (70-105) mg/dL Calcium 9.3 (8.6-10.4) mg/dl Total Bilirubin 0.5 (0.0-1.0) mg/dL AST 9 (0-37) U/l ALT 7 (0-40) U/l Alkaline Phosphatase 51 (39-117) U/L Total Protein 6.3 (5.9-8.4) gm/dL Albumin 4.3 (3.2-5.2) gm/dL Assessment and Plan (1) Ileostomy status Status: Acute Assessment and plan: STOMA IS WORKING FINE NO BILIOUS DRAINAGE VIA RIDDHI DRAINS Current Visit: Yes (2) Protein-calorie malnutrition, moderate Status: Acute Assessment and plan: Continue TPN and advance as tolerated Current Visit: No (3) Enterocutaneous fistula Status: Resolved Assessment and plan: No evidence of further leak at this time We will advance to full liquids Current Visit: Yes (4) Volume overload Status: Resolved Assessment and plan: BUN is beginning to rise which may suggest intravenous volume contraction. Current Visit: Yes - Time Spent With Patient Total time spent is greater than 50% in coordination of care (as documented) at patient's floor/unit and/or counseling patient:
[2018-01-02] MEDS: FAT EMULSION 20% 250 ML in PREMIX 1 BAG IV SCH (15:43)
[2018-01-02] MEDS ORDERED: NOREPINEPHRINE BITARTRATE 16 MG in 0.9 % SODIUM CHLORIDE 234 ML IV PRN (19:48)
[2018-01-02] MEDS ORDERED: POLYVINYL ALCOHOL OPHTH DROPS 15ML BOTTLE OU PRN (19:48)
[2018-01-02] MEDS ORDERED: PROMETHAZINE 25 MG/ML VIAL IV PRN (19:48)
[2018-01-02] MEDS ORDERED: LACTOPEROXI/GLUC OXID/POT THIO 1 EACH GEL..EA. TOPICAL PRN (19:48)
[2018-01-02] MEDS ORDERED: HEPARIN/NS 500 ML IV SCH (19:48)
[2018-01-02] MEDS ORDERED: TPN PER PHARMACY IV SCH (19:48)
[2018-01-02] MEDS ORDERED: ALPRAZolam 0.5 MG TABLET PO PRN (19:48)
[2018-01-02] MEDS ORDERED: DEXTROSE 50% 50 ML VIAL IV PRN (19:48)
[2018-01-02] MEDS ORDERED: VANCOMYCIN PER PHARMACY IV SCH (19:48)
[2018-01-02] MEDS ORDERED: ONDANSETRON 4 MG/2 ML VIAL IV PRN (19:48)
[2018-01-02] MEDS ORDERED: 0.9 % SODIUM CHLORIDE 10 ML SYRINGE IV PRN (19:48)
[2018-01-02] MEDS: ALBUTEROL SULFATE 2.5 MG/3 ML NEBULIZER NEB PRN (20:30)
[2018-01-03] MEDS: metroNIDAZOLE 500 MG/100 ML BAG IV SCH ×4 (00:01→17:18)
[2018-01-03] MEDS: INSULIN LISPRO 1 UNIT/0.01 ML UNIT SQ SCH ×4 (00:01→17:31)
[2018-01-03] MEDS: HYDROmorphone 2 MG/ML VIAL IV PRN ×6 (00:02→21:13)
[2018-01-03] MEDS: METOCLOPRAMIDE 10 MG/2 ML VIAL IV SCH ×3 (00:04→16:20)
[2018-01-03] MEDS: ACETAMINOPHEN 1,000 MG/100 ML BOTTLE IV PRN ×2 (03:47→15:25)
[2018-01-03] MEDS: PIPERACILLIN SODIUM/TAZOBACTAM 3.375 GM in DEXTROSE 5% IN WATER 50 ML IV SCH ×4 (04:47→23:10)
[2018-01-03] MEDS: 0.9 % SODIUM CHLORIDE 10 ML SYRINGE IV SCH ×3 (05:26→21:15)
[2018-01-03 06:31] LABS: ALT/SGPT 5 U/l (0-40); Albumin 4.3 gm/dL (3.2-5.2); Albumin/Globulin Ratio 2.2 (1.0-2.3); Alkaline Phosphatase 52 U/L (39-117); Bilirubin,Direct < 0.2 mg/dL (0.0-0.3); Blood Urea Nitrogen 30 mg/dl (8-23); Gamma Glutamyl Transpeptidase 90 U/L (5-36); Uric Acid 2.4 mg/dL (2.5-8.0)
[2018-01-03] MEDS: PANTOPRAZOLE 40 MG VIAL IV SCH ×2 (07:40→16:20)
[2018-01-03] MEDS: ALBUTEROL SULFATE 2.5 MG/3 ML NEBULIZER NEB PRN (07:53)
[2018-01-03] MEDS: IPRATROPIUM/ALBUTEROL 3 ML AMPUL.NEB NEB SCH ×3 (07:55→19:12)
[2018-01-03 08:54] LABS: Basophils # (Auto) 0 K/mcL (0.0-0.3); Basophils % (Auto) 0.1 % (0.0-2.0); Eosinophils # (Auto) 0.4 K/mcL (0.0-0.7); Eosinophils % (Auto) 5.4 % (0.0-7.0); Granulocytes % (Auto) 74.9 % (38.0-78.0); Lymphocytes # (Auto) 0.7 K/mcL (1.5-4.8); Lymphocytes % (Auto) 8.2 % (15.5-49.0); Mean Cell Volume 78.8 fL (80.0-100.0); Mean Corpuscular HGB Conc 31.9 g/dL (31.0-36.0); Mean Corpuscular Hemoglobin 25.1 pg (26.0-34.0); Monocytes # (Auto) 0.9 K/mcL (0.1-0.9); Monocytes % (Auto) 11.4 % (1.0-12.0); Platelet Count 355 K/mcL (140-440); RBC 3.08 M/mcL (4.00-5.20); Red Cell Distribution Width 16.2 % (11.5-14.5)
[2018-01-03] MEDS ORDERED: FUROSEMIDE 20 MG/2 ML VIAL IV SCH ×2 (09:00→21:00)
[2018-01-03] MEDS ORDERED: DULoxetine 30 MG CAPSULE PO SCH (09:00)
--- NOTE | 2018-01-03 10:07 | Internal Med Progress Note ---
Medical - PN: Subj Patient information: Note initiated : 01/03/18 at 10:04 am Service Date, if different from initiated Date: [] Patient: Caroline Bellamy a 77 y/o F admitted on 12/23/17 for Ileostomy Closure and Colorectal Anastomosis. Chief Complaint: [] Interval history: December 23-Ms. Adiel Cardoso is a 77 year old F with a complex history with hospitalization May 2017 with diverticulitis perforation/peritonitis and prolonged hospital stay. 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 Hospitalization course was complicated by respiratory failure requiring mechanical ventilation and intra-abdominal infection with Pseudomonas. She underwent rehabilitation/TPN and prolonged hospitalization and was gradually recovering. She she now underwent expiratory laparotomy with extensive epidural lysis and small bowel resection. Postoperatively patient was unable to be extubated. Subsequently hospitalist service was consulted and patient was brought into the ICU on mechanical ventilation. patient currently on propofol/fentanyl. No family members available. systolics around 100. Patient has a line. Foleys catheter draining clear urine December 24-patient on mechanical ventilation. Map at 65 on 5 mics Levophed. Improving urine output. On light sedation. Weaning ventilator down to FiO2 35% , ABG 7.47/31/147. chest imaging revealed moderate left and small to moderat bibasilar infiltrate/effusion worsening since previous day. on Zosyn/Flagyl. Continue propofol/fentanyl for sedation. Start sedation holiday in a.m. for possible extubation. Continue weaning vasopressors. December 25- [place] [id number]. Off vasopressors, T MAX 100, no chills. No anxiety, responding to verbal commands, on SBT/sedation holiday, Interval chest iamging shows atelectasis and pl effusion. alert. stable renal function. Diminishing urine output. A line and central line no localized bleeding or redness. No telemetry events. Possible extubation today.ABG 7.35/38/96 on 35% FiO2 and PEEP December 26-Successfully extubated yesterday morning. Remained stable overnight. The morning wanting to try to eat or drink something. WBC decreased from 23K to 19K. However, late this morning, developed leakage of bowel contents through part of her abdominal incision. Taken back to the operating room for exploratory laparotomy. Will likely require mechanical ventilation postoperatively. December 27-patient successfully underwent repair of small leak in the distal ileum yesterday. Remained intubated overnight. This morning during sedation vacation and spontaneous breathing trial, patient was saturating well on 35% room air, had good minute ventilation during the breathing trial. She is successfully extubated. We'll later, respirations became labored. She was receiving significant volumes of IV fluid with maintenance as well as supplements being infused. Responded well to low-dose furosemide with improvement in respiratory status. December 28-overnight, had recurrent respiratory distress, tachypnea, labored respirations with rales and wheezes. Responded to further furosemide about 1 AM. Had recurrent respiratory distress about 5:30 this morning. Respirations were labored, while on only 2 L nasal cannula, saturations are dropped from high 90s to low 90s. She had wheezes as well as rales on exam. Received 10 mg of IV furosemide with some urine output and mild improvement, however required BiPAP therapy. Receive further 20 mg of furosemide with brisk diuresis. Remains on BiPAP for respiratory support. Chest x-ray with worsening interstitial infiltrates. Exam also with significant jugular venous distention consistent with volume overload. Has been receiving albumin. December 29-patient continues on BiPAP. She is off for a while this morning, became dyspneic. Improved approximately 1-2 hours after morning furosemide dose. She tends to have more respiratory distress as the furosemide has worn off. Has been receiving furosemide every 8 hours with good diuresis. Renal functions remain stable. At one point was complaining to family that she did not want to keep going with therapy, though seems to improved later in the morning. December 30-on BiPAP most of the night. Urine output responding to 20 mg of Lasix every 6 hours, urine output tails off towards the end. Receiving albumin and Lasix scheduled. Overall respiratory status clinically improved. Changed over to high flow nasal cannula this morning which she is tolerating. She complains of feeling tired, doesn't think she is any better. december 31 Pt seen and examined, no acute overnight events. Patient's chest x-ray shows worsening infiltrate versus ARDS versus pneumonia. Patient is on Zosyn as well as Flagyl. Start on vancomycin IV. She has completed her albumin and Lasix dosing according to the nurse. X-ray chest to rule is worsened. Patient is on 35% FiO2 by high flow nasal cannula. She seems to be tolerating it well. Her oxygen level is maintained with this. The patient definitely is tachypneic. She still complains about significant abdominal pain. [id number] ultrasound done IVC reviewed, the patient has complete collapse of the IVC with inspiration. This indicates that the patient does not seem to be in fluid overload other is volume depleted after aggressive diuresis. For now we will just hold off on Lasix and monitor. january 01 Patient seen and examined, no acute overnight events. She did use BiPAP for a while and then went back to her high flow nasal cannula. Chest x-ray shows persistent infiltrates. Clinically she is not volume overloaded. Oxygen requirements are trending down. She does note that she is very tired and wanted to give up overnight but after talking with the family she decided to continue. I do not believe that the patient is end-stage at this point in time, and she has a chance of recovery. Hold off on diuresis for now. Start on Cymbalta 30 mg once a day, they should help her with some anxiety depression as well as chronic aches and pains. Plan of care reviewed with the patient as well as the family. Use BiPAP as much as tolerated. january 02 Pt seen examined, no acute overnight issues, tolerating bipap intermittently had a better night pain is also better she is in better spirits today. family by the bed side She had one episode of shortness of breath yesterday, which improved with duonebs. Her IVC also showed more distention than the previous day, although still collapsing completely. Will keep the patient on low dose of lasix 20mg dailiy to keep her lungs as dry as possible She is oxygenating well, will wean off the hi moon nasal canula today if she is able to. january 03 Pt seen examined, overnight was confused after use of xanasx, this am drowsy, as she had received dilaudid but overall she is stable no complaints when woken up on bipap for now she was sob when she was weaned off the hiflo nasal canula continue same. Pertinent ROS: denies any complaints but was drowsy after use of dilaudid. - Constitutional Vitals: Vital Signs Temp Pulse Resp BP Pulse Ox 98.0 F 89 22 112/58 98 01/03/18 04:01 01/03/18 08:01 01/03/18 08:01 01/03/18 04:01 01/03/18 08:01 Period Temp Pulse Resp BP Sys/[place] Pulse Ox Last 24 Hr 98.0 F-98.7 F 80-89 15-78 95-138/57-87 95-100 Intake and Output 01/02/18 01/03/18 01/03/18 21:59 05:59 13:59 Intake Total 250 / 250 500 / 500 100 / 100 Output Total 620 / 620 1430 / 1430 Balance -370 / -370 -930 / -930 100 / 100 Weight 147 lb 12.8 oz Intake & Output: Intake & Output 01/02/18 01/03/18 01/03/18 21:59 05:59 13:59 Intake Total 250 / 250 500 / 500 100 / 100 Output Total 620 / 620 1430 / 1430 Balance -370 / -370 -930 / -930 100 / 100 Weight 147 lb 12.8 oz Intake: IV 150 / 150 300 / 300 100 / 100 OFIRMEV 1,000 mg In 100 ml @ 100 / 100 100 / 100 200 mls/hr IV Q6HP PRN Rx#: [id number] Zosyn 3.375 gm In Dextrose 5% 50 / 50 100 / 100 in Water 50 ml @ 100 mls/hr IV Q6H KRISS Rx#:[id number] Oral 100 / 100 200 / 200 Output: Drainage 30 / 30 RIDDHI A 10 / 10 RIDDHI B 20 / 20 Urine Catheter Amount 620 / 620 1300 / 1300 Stool 100 / 100 Other: Meal Dinner Percent of Meal Consumed a few bite Stool Size Small Stool Color Brown Stool Consistency Liquid Liquid Exam: Constitutional; Afebrile, cooperative, drowsy, not in distress. Eyes- No icterus, , No periorbital swelling Ears- Ext ear normal, hearing normal to conversation. Neck- Midline trachea, supple Respiratory system: Air Entry equal on both sides, Nbut poor resp effort, bibasilar decreased breath sounds. CVS- Rate rhythm regular, S1,S2 heard, no gallop, no rub. [employer]- AOOx1 drowsy, moving all extremities, no gross focal deficit noted. Medical - PN: Obj Da - Labs CBC & Chem 7: 01/03/18 04:00 01/03/18 04:00 Labs: Abnormal Lab Results 01/03/18 01/03/18 01/03/18 04:00 04:00 04:00 RBC 3.08 L Hgb 7.8 L Hct 24.3 L MCV 78.8 L MCH 25.1 L RDW 16.2 H Gran % Lymph % (Auto) 8.2 L Kidder % (Auto) Gran # Lymph # (Auto) 0.7 L Kidder # (Auto) Potassium Chloride Carbon Dioxide 31 H BUN 30 H Glucose 115 H Uric Acid 2.4 L GGT 90 H NT-Pro-B Natriuret Pep 3490.0 H Total Protein Globulin 2.0 L Albumin/Globulin Ratio 01/02/18 01/02/18 01/02/18 04:00 04:00 04:00 RBC 3.11 L Hgb 7.7 L Hct 24.4 L MCV 78.5 L MCH 24.9 L RDW 15.7 H Gran % 86.6 H Lymph % (Auto) 4.9 L Kidder % (Auto) Gran # 8.6 H Lymph # (Auto) 0.5 L Kidder # (Auto) Potassium 5.4 H Chloride Carbon Dioxide BUN 33 H Glucose 126 H Uric Acid GGT 86 H NT-Pro-B Natriuret Pep 5915.0 H Total Protein Globulin 2.0 L Albumin/Globulin Ratio 01/01/18 01/01/18 01/01/18 07:33 07:33 04:00 RBC 3.22 L Hgb 7.9 L Hct 25.1 L MCV 77.8 L MCH 24.6 L RDW 16.0 H Gran % Lymph % (Auto) 7.5 L Kidder % (Auto) 12.8 H Gran # Lymph # (Auto) 0.7 L Kidder # (Auto) 1.2 H Potassium Chloride 95 L Carbon Dioxide 33 H BUN 35 H Glucose 153 H Uric Acid GGT 79 H NT-Pro-B Natriuret Pep 9319.0 H Total Protein 5.8 L Globulin 1.7 L Albumin/Globulin Ratio 2.4 H Meds: Medications Albuterol/Ipratropium (Duoneb) 3 ml NEB Q6HRT [facility] Alprazolam (Xanax) 0.5 mg PO Q6HP PRN PRN Reason: Anxiety Last Admin: 01/02/18 23:33 Dose: 0.5 mg Artificial Tears (Artificial Tears Ophth Drops) 1 gtt OU QIDP PRN PRN Reason: Dry Eye(s) Dextrose (Dextrose 50%) 25 ml IV UD PRN PRN Reason: Hypoglycemia Diagnostic Test (Pha) (Accu-Chek) 1 each FS Q6 [facility] Last Admin: 01/03/18 05:49 Dose: 1 each Duloxetine HCl (Cymbalta) 30 mg PO DAILY [facility] Furosemide (Lasix) 20 mg IV BID [facility] Glucose Oxid/Lactoperoxid/Muramidas (Biotene) 1 each TOPICAL PRN PRN PRN Reason: Dry Mouth Heparin Sodium (Porcine) (Heparin Flush) 2 ml IV Q12 [facility] Last Admin: 01/02/18 21:25 Dose: 2 ml Hydromorphone HCl (Dilaudid) 1 mg IV Q2HP PRN PRN Reason: PAIN LEVEL > 6 Last Admin: 01/03/18 07:40 Dose: 1 mg Magnesium Sulfate 16.24 meq/Potassium Phosphate 40 meq/Multivitamins/Minerals 10 ml/Selenium 60 mcg/ Potassium Chloride 100 meq/ Sodium Phosphate 30 mmol/ Sodium Chloride 40 meq/ Amino Acids 2,094.5909 mls @ 65 mls/hr IV Q24H [facility] Fat Emulsion Intravenous 250 (ml/ Premix) 250 mls @ 25 mls/hr IV TuThSa@1600 [facility] Heparin Sodium/Sodium Chloride (Heparin/Ns) 500 mls @ 0 mls/hr IV .Q0M [facility]; KVO PRN Reason: Protocol Metronidazole (Flagyl) 500 mg in 100 mls @ 100 mls/hr IV Q6H [facility] Last Infusion: 01/03/18 06:26 Dose: Infused Norepinephrine Bitartrate 16 (mg/ Sodium Chloride) 250 mls @ 9.37 mls/hr IV Q24H PRN; Protocol; 10 MCG/MIN PRN Reason: Hypotension Acetaminophen (Ofirmev) 1,000 mg in 100 mls @ 200 mls/hr IV Q6HP PRN PRN Reason: Pain Last Infusion: 01/03/18 04:20 Dose: Infused Piperacillin Sod/Tazobactam (Sod 3.375 gm/ Dextrose) 50 mls @ 100 mls/hr IV Q6H [facility] Last Infusion: 01/03/18 05:20 Dose: Infused Vancomycin HCl 1,000 mg/ (Sodium Chloride) 250 mls @ 250 mls/hr IV Q24H [facility] Insulin Human Lispro (Humalog) 0 unit SQ Q6 [facility] PRN Reason: Protocol Last Admin: 01/03/18 05:49 Dose: 2 unit Metoclopramide HCl (Reglan) 5 mg IV Q8H [facility] Last Admin: 01/03/18 07:40 Dose: 5 mg Ondansetron HCl (Zofran) 4 mg IV Q4HP PRN PRN Reason: Nausea And Vomiting Pantoprazole Sodium (Protonix) 40 mg IV BIDAC [facility] Last Admin: 01/03/18 07:40 Dose: 40 mg Promethazine HCl (Phenergan) 12.5 mg IV Q4HP PRN PRN Reason: Nausea And Vomiting Sodium Chloride (Saline Flush) 10 ml IV UD PRN PRN Reason: FLUSH Sodium Chloride (Saline Flush) 10 ml IV Q8 [facility] Last Admin: 01/03/18 05:26 Dose: 10 ml Vancomycin HCl (Vancomycin Per Pharmacy) [address] [facility] [place] Medical - PN: A/P - Time Spent With Patient Total time spent is greater than 50% in coordination of care (as documented) at patient's floor/unit and/or counseling patient: - Narrative A/P Narrative: 77-year-old female, status post exploratory laparotomy in attempt for ileostomy takedown after prior Clark's procedure last May. Unable to accomplish anastomosis due to friable tissues. Status post exploratory laparotomy. Management per surgery. Still requires delayed closure of abdominal wound. Hospitalist consult for postoperative respiratory failure and mechanical ventilation. s/p exubation, day 7 today Had deterioration after extubation needing bipap Presently on hiflo nasal canula, using bipap intermittently wean off hi moon canula, she was not able to be off this yesterday. Prn bipap support if resp condition worsens low dose lasix 20mg bid daily to keep lungs as dry as possible. Possible HCAP PNA Pt already on zosyn, add vanco for now and monitor. d4 today of vanco, plan for 5- 7 days. Acute hypoxic respiratory failure. Now secondary to volume overload from fluid shifts Plan: As above. Anemia: Hb 7.7, may need transfusion if hb < 7.0 anxiety - depression-chronic pain. Cymbalta started today. Continue with pain management as per surgery. Pt is doing well with cymbalta. surgery staarted pt on xanax, will see if pt continues to be delirious, will discuss with Dr blue to see if we can hold off on it. F/E/N: On TPN. dvt [facility] Medical - PN: Qual - VTE Deep Vein Thrombosis/Pulmonary Embolism Present on Admission: No Procedures - Arterial Line Size (Gauge): 20
--- NOTE | 2018-01-03 10:43 | XRay Report ---
HISTORY: Reason for Exam:shortness of breath FINDINGS: There are moderately severe consolidating infiltrates in both lower lobes with superimposed small pleural effusions. The infiltrates have become worse since yesterday. There is a mild haziness in the lung parenchyma in the upper lobes. Patient may have superimposed congestive heart failure. No pneumothorax is present. PICC line remains well-positioned. The heart is borderline enlarged. Old healed fracture is present in the proximal right humerus. IMPRESSION: Worsening bilateral pulmonary infiltrates Interpreted and Authenticated by: Varghese Reich 01/03/18
[2018-01-03] MEDS ORDERED: [UNRECOGNIZED DRUG - REMARK] IV SCH (12:00)
[2018-01-03] MEDS ORDERED: VANCOMYCIN 1,000 MG in 0.9 % SODIUM CHLORIDE 250 ML IV SCH (12:00)
--- NOTE | 2018-01-03 16:34 | General Surgery Progress Note ---
Subjective Patient reports: feels better, pain is less, tolerating liquids well, flatus, bowel movement, shortness of breath, afebrile Narrative: Note initiated : 01/03/18 at 4:31 pm Service Date, if different from initiated Date: [] Patient: Caroline Bellamy 77 y/o F admitted on 12/23/17 for Ileostomy Closure and Colorectal Anastomosis. Chief Complaint: [Patient is basically stable. She has intermittently use the BiPAP but her oxygenation has been good. She does have some increased tachypnea when she is anxious but this rapidly resolves. She has a cough productive of thick sputum. Chest x-ray is said to be worse but clinically her abdomen movement is much better throughout both lung alves and the coarse tubular breath sounds and rhonchi are not very prominent at this time. Her abdominal discomfort is better. She has good intestinal function and her ileostomy works appropriately. Her white blood count remains normal. There is slow decrease in her BUN and her proBNP is also decreasing] Objective Temp Pulse Resp BP Pulse Ox 98.4 F 84 18 126/66 99 01/03/18 12:01 01/03/18 13:27 01/03/18 13:27 01/03/18 12:01 01/03/18 12:01 - Additional Data Intake & Output - Last 24 hours: Intake & Output 01/01/18 01/02/18 01/03/18 01/04/18 05:59 05:59 05:59 05:59 Intake Total 2753 / 2753 2993 / 2993 3486 / 3486 600 / 600 Output Total 2575 / 2575 4190 / 4190 3470 / 3470 1875 / 1875 Balance 178 / 178 -1197 / -1197 16 / 16 -1275 / -1275 Weight 150 lb 0.64 oz 145 lb 9.6 oz 147 lb 12.8 oz - General physical appearance well developed, well nourished, no distress, no pain - Eyes PERRL, normal ocular movement - ENT normal pinna, normal nares, normal mucosa, no hearing loss, no congestion - Neck no masses, no bruits, trachea midline, no lymphadectomy, no venous distension - Respiratory other (Much improved bilateral air movement; decreased rhonchi and tubular breath sounds) - Cardiovascular Cardiovascular exam: Present: normal rate and rhythm, RRR, +S1, +S2, tachycardia - Abdomen non tender, bowel sounds (present), surgical scars (none), masses (none) - Integumentary no rash, no growths, no abnormal pigmentation - Neurologic normal coordination, normal sensation - Psychiatric oriented to time, oriented to person, oriented to place, speech is normal, memory intact - Labs 01/03/18 04:00 01/03/18 04:00 Diabetes panel 01/03/18 Range/Units 04:00 Sodium 135 (133-145) mmol/L Potassium 4.7 (3.3-5.1) mmol/L Chloride 96 (96-108) mmol/L Carbon Dioxide 31 H (22-30) mmol/L BUN 30 H (8-23) mg/dl Creatinine 0.6 (0.6-1.1) mg/dl Glucose 115 H (70-105) mg/dL Calcium 9.0 (8.6-10.4) mg/dl AST 10 (0-37) U/l ALT 5 (0-40) U/l Alkaline Phosphatase 52 (39-117) U/L Total Protein 6.3 (5.9-8.4) gm/dL Albumin 4.3 (3.2-5.2) gm/dL Triglycerides 40 (<150) mg/dl Calcium panel 01/03/18 Range/Units 04:00 Calcium 9.0 (8.6-10.4) mg/dl Phosphorus 3.1 (2.7-4.5) mg/dL Albumin 4.3 (3.2-5.2) gm/dL Pituitary panel 01/03/18 Range/Units 04:00 Sodium 135 (133-145) mmol/L Potassium 4.7 (3.3-5.1) mmol/L Chloride 96 (96-108) mmol/L Carbon Dioxide 31 H (22-30) mmol/L BUN 30 H (8-23) mg/dl Creatinine 0.6 (0.6-1.1) mg/dl Glucose 115 H (70-105) mg/dL Calcium 9.0 (8.6-10.4) mg/dl Adrenal panel 01/03/18 Range/Units 04:00 Sodium 135 (133-145) mmol/L Potassium 4.7 (3.3-5.1) mmol/L Chloride 96 (96-108) mmol/L Carbon Dioxide 31 H (22-30) mmol/L BUN 30 H (8-23) mg/dl Creatinine 0.6 (0.6-1.1) mg/dl Glucose 115 H (70-105) mg/dL Calcium 9.0 (8.6-10.4) mg/dl Total Bilirubin 0.4 (0.0-1.0) mg/dL AST 10 (0-37) U/l ALT 5 (0-40) U/l Alkaline Phosphatase 52 (39-117) U/L Total Protein 6.3 (5.9-8.4) gm/dL Albumin 4.3 (3.2-5.2) gm/dL Assessment and Plan (1) Ileostomy status Status: Acute Assessment and plan: STOMA IS WORKING FINE NO BILIOUS DRAINAGE VIA RIDDHI DRAINS Current Visit: Yes (2) Protein-calorie malnutrition, moderate Status: Acute Assessment and plan: Continue TPN and advance as tolerated Current Visit: No (3) Enterocutaneous fistula Status: Resolved Assessment and plan: No evidence of further leak at this time We will advance to full liquids Current Visit: Yes (4) Volume overload Status: Resolved Assessment and plan: BUN is beginning to rise which may suggest intravenous volume contraction. Current Visit: Yes - Time Spent With Patient Total time spent is greater than 50% in coordination of care (as documented) at patient's floor/unit and/or counseling patient:
[2018-01-03] MEDS ORDERED: BACITRACIN 50,000 UNIT VIAL IR ONE ×2 (16:40→18:16)
[2018-01-03] MEDS ORDERED: CASPOFUNGIN ACETATE 70 MG in 0.9 % SODIUM CHLORIDE 250 ML IV ONE ×2 (18:12→18:16)
[2018-01-03] MEDS ORDERED: CASPOFUNGIN ACETATE 50 MG in 0.9 % SODIUM CHLORIDE 250 ML IV SCH (18:15)
[2018-01-03] MEDS ORDERED: PROMETHAZINE 25 MG/ML VIAL IV PRN (18:16)
[2018-01-03] MEDS ORDERED: ACETAMINOPHEN 1,000 MG/100 ML BOTTLE IV PRN (18:16)
[2018-01-03] MEDS ORDERED: NOREPINEPHRINE BITARTRATE 16 MG in 0.9 % SODIUM CHLORIDE 234 ML IV PRN (18:16)
[2018-01-03] MEDS ORDERED: 0.9 % SODIUM CHLORIDE 10 ML SYRINGE IV PRN (18:16)
[2018-01-03] MEDS ORDERED: HEPARIN/NS 500 ML IV SCH (18:16)
[2018-01-03] MEDS ORDERED: VANCOMYCIN PER PHARMACY IV SCH (18:16)
[2018-01-03] MEDS ORDERED: POLYVINYL ALCOHOL OPHTH DROPS 15ML BOTTLE OU PRN (18:16)
[2018-01-03] MEDS ORDERED: TPN PER PHARMACY IV SCH (18:16)
[2018-01-03] MEDS ORDERED: LACTOPEROXI/GLUC OXID/POT THIO 1 EACH GEL..EA. TOPICAL PRN (18:16)
[2018-01-03] MEDS ORDERED: DEXTROSE 50% 50 ML VIAL IV PRN (18:16)
[2018-01-03] MEDS ORDERED: ONDANSETRON 4 MG/2 ML VIAL IV PRN (18:16)
[2018-01-03] MEDS: FUROSEMIDE 20 MG/2 ML VIAL IV SCH (21:06)
[2018-01-04] MEDS: INSULIN LISPRO 1 UNIT/0.01 ML UNIT SQ SCH ×4 (00:47→18:02)
[2018-01-04] MEDS: metroNIDAZOLE 500 MG/100 ML BAG IV SCH ×5 (00:48→17:08)
[2018-01-04] MEDS: METOCLOPRAMIDE 10 MG/2 ML VIAL IV SCH ×3 (00:51→17:19)
[2018-01-04] MEDS: IPRATROPIUM/ALBUTEROL 3 ML AMPUL.NEB NEB SCH ×4 (01:07→19:24)
[2018-01-04] MEDS: HYDROmorphone 2 MG/ML VIAL IV PRN ×7 (01:24→23:02)
[2018-01-04] MEDS: PIPERACILLIN SODIUM/TAZOBACTAM 3.375 GM in DEXTROSE 5% IN WATER 50 ML IV SCH ×4 (05:02→22:42)
[2018-01-04] MEDS: 0.9 % SODIUM CHLORIDE 10 ML SYRINGE IV SCH ×9 (05:56→21:41)
[2018-01-04] MEDS: PANTOPRAZOLE 40 MG VIAL IV SCH ×2 (06:56→17:18)
[2018-01-04 08:06] LABS: ALT/SGPT 6 U/l (0-40); Albumin 3.9 gm/dL (3.2-5.2); Albumin/Globulin Ratio 1.8 (1.0-2.3); Alkaline Phosphatase 56 U/L (39-117); Basophils # (Auto) 0 K/mcL (0.0-0.3); Basophils % (Auto) 0.2 % (0.0-2.0); Bilirubin,Direct < 0.2 mg/dL (0.0-0.3); Blood Urea Nitrogen 30 mg/dl (8-23); Eosinophils # (Auto) 0.4 K/mcL (0.0-0.7); Gamma Glutamyl Transpeptidase 89 U/L (5-36); Granulocytes % (Auto) 78.3 % (38.0-78.0); Lymphocytes # (Auto) 0.6 K/mcL (1.5-4.8); Lymphocytes % (Auto) 6.9 % (15.5-49.0); Mean Cell Volume 78.3 fL (80.0-100.0); Mean Corpuscular HGB Conc 31.8 g/dL (31.0-36.0); Mean Corpuscular Hemoglobin 24.9 pg (26.0-34.0); Monocytes # (Auto) 0.8 K/mcL (0.1-0.9); Monocytes % (Auto) 9.6 % (1.0-12.0); Platelet Count 378 K/mcL (140-440); RBC 3.11 M/mcL (4.00-5.20); Red Cell Distribution Width 15.7 % (11.5-14.5); Uric Acid 2.6 mg/dL (2.5-8.0)
[2018-01-04] MEDS: FUROSEMIDE 20 MG/2 ML VIAL IV SCH ×2 (08:34→21:26)
[2018-01-04] MEDS: DULoxetine 30 MG CAPSULE PO SCH (09:30)
[2018-01-04] MEDS: CASPOFUNGIN ACETATE 50 MG in 0.9 % SODIUM CHLORIDE 250 ML IV SCH (09:32)
[2018-01-04] MEDS ORDERED: [UNRECOGNIZED DRUG - REMARK] IV SCH (12:00)
[2018-01-04] MEDS: VANCOMYCIN 1,000 MG in 0.9 % SODIUM CHLORIDE 250 ML IV SCH (12:46)
--- NOTE | 2018-01-04 16:29 | General Surgery Progress Note ---
Subjective Patient reports: feels better, pain is less, tolerating liquids well, flatus, bowel movement, diarrhea, shortness of breath, afebrile Narrative: Note initiated : 01/04/18 at 4:27 pm Service Date, if different from initiated Date: [] Patient: Caroline Bellamy 77 y/o F admitted on 12/23/17 for Ileostomy Closure and Colorectal Anastomosis. Chief Complaint: [Patient remained stable. She is improved from yesterday. Her O2 has been decreased to room air and she maintains saturations above 90%. She does not complain of shortness of breath but she does have some tachypnea. Her abdominal pain is significantly improved. She has been afebrile and her white count remains normal. Her p.o. intake remains marginal and she is not taking in enough to sustain herself. We have advanced her diet so that she can eat whatever she has no desire for.] Objective Temp Pulse Resp BP Pulse Ox 97.9 F 89 20 132/72 94 01/04/18 11:51 01/04/18 13:08 01/04/18 14:55 01/04/18 11:51 01/04/18 14:55 - Additional Data Intake & Output - Last 24 hours: Intake & Output 01/02/18 01/03/18 01/04/18 01/05/18 05:59 05:59 05:59 05:59 Intake Total 2993 / 2993 3486 / 3486 1200 / 1200 250 / 250 Output Total 4190 / 4190 3470 / 3470 5145 / 5145 1735 / 1735 Balance -1197 / -1197 16 / 16 -3945 / -3945 -1485 / -1485 Weight 145 lb 9.6 oz 147 lb 12.8 oz 146 lb 14.4 oz - General physical appearance no distress, cachectic, chronically ill - Eyes PERRL, normal ocular movement - ENT normal pinna, normal nares, normal mucosa, no hearing loss, no congestion - Neck no masses, no bruits, trachea midline, no lymphadectomy, no venous distension - Respiratory normal expansion, normal respiratory effort, clear to percussion, other (She has very good aeration of both lung alves though there are still some coarse tubular breath sounds) - Cardiovascular Cardiovascular exam: Present: normal rate and rhythm, RRR, +S1, +S2. Absent: JVD, tachycardia - Abdomen non tender, bowel sounds (present), surgical scars (none), wound (Abdominal incision is clean with a thin fibrinous exudate at the base of the incision), masses (none) - Integumentary no rash, no growths, no abnormal pigmentation - Psychiatric oriented to time, oriented to person, oriented to place, speech is normal, memory intact - Labs 01/04/18 04:00 01/04/18 04:00 Diabetes panel 01/04/18 Range/Units 04:00 Sodium 135 (133-145) mmol/L Potassium 4.6 (3.3-5.1) mmol/L Chloride 96 (96-108) mmol/L Carbon Dioxide 30 (22-30) mmol/L BUN 30 H (8-23) mg/dl Creatinine 0.7 (0.6-1.1) mg/dl Glucose 143 H (70-105) mg/dL Calcium 9.0 (8.6-10.4) mg/dl AST 10 (0-37) U/l ALT 6 (0-40) U/l Alkaline Phosphatase 56 (39-117) U/L Total Protein 6.1 (5.9-8.4) gm/dL Albumin 3.9 (3.2-5.2) gm/dL Triglycerides 53 (<150) mg/dl Calcium panel 01/04/18 Range/Units 04:00 Calcium 9.0 (8.6-10.4) mg/dl Phosphorus 3.6 (2.7-4.5) mg/dL Albumin 3.9 (3.2-5.2) gm/dL Pituitary panel 01/04/18 Range/Units 04:00 Sodium 135 (133-145) mmol/L Potassium 4.6 (3.3-5.1) mmol/L Chloride 96 (96-108) mmol/L Carbon Dioxide 30 (22-30) mmol/L BUN 30 H (8-23) mg/dl Creatinine 0.7 (0.6-1.1) mg/dl Glucose 143 H (70-105) mg/dL Calcium 9.0 (8.6-10.4) mg/dl Adrenal panel 01/04/18 Range/Units 04:00 Sodium 135 (133-145) mmol/L Potassium 4.6 (3.3-5.1) mmol/L Chloride 96 (96-108) mmol/L Carbon Dioxide 30 (22-30) mmol/L BUN 30 H (8-23) mg/dl Creatinine 0.7 (0.6-1.1) mg/dl Glucose 143 H (70-105) mg/dL Calcium 9.0 (8.6-10.4) mg/dl Total Bilirubin 0.4 (0.0-1.0) mg/dL AST 10 (0-37) U/l ALT 6 (0-40) U/l Alkaline Phosphatase 56 (39-117) U/L Total Protein 6.1 (5.9-8.4) gm/dL Albumin 3.9 (3.2-5.2) gm/dL Assessment and Plan (1) Ileostomy status Status: Acute Assessment and plan: STOMA IS WORKING FINE Current Visit: Yes (2) Protein-calorie malnutrition, moderate Status: Acute Assessment and plan: Continue TPN and advance as tolerated Current Visit: No (3) Enterocutaneous fistula Status: Resolved Assessment and plan: No evidence of further leak at this time advance to diet as tolerated Current Visit: Yes (4) Volume overload Status: Resolved Assessment and plan: BUN is beginning to rise which may suggest intravenous volume contraction. Current Visit: Yes - Time Spent With Patient Total time spent is greater than 50% in coordination of care (as documented) at patient's floor/unit and/or counseling patient:
--- NOTE | 2018-01-04 17:03 | Internal Med Progress Note ---
Medical - PN: Subj Patient information: Note initiated : 01/04/18 at 4:40 pm Service Date, if different from initiated Date: [] Patient: Caroline Bellamy a 77 y/o F admitted on 12/23/17 for Ileostomy Closure and Colorectal Anastomosis. Chief Complaint: [] Interval history: December 23-Ms. Adiel Cardoso is a 77 year old F with a complex history with hospitalization May 2017 with diverticulitis perforation/peritonitis and prolonged hospital stay. 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 Hospitalization course was complicated by respiratory failure requiring mechanical ventilation and intra-abdominal infection with Pseudomonas. She underwent rehabilitation/TPN and prolonged hospitalization and was gradually recovering. She she now underwent expiratory laparotomy with extensive epidural lysis and small bowel resection. Postoperatively patient was unable to be extubated. Subsequently hospitalist service was consulted and patient was brought into the ICU on mechanical ventilation. patient currently on propofol/fentanyl. No family members available. systolics around 100. Patient has a line. Foleys catheter draining clear urine December 24-patient on mechanical ventilation. Map at 65 on 5 mics Levophed. Improving urine output. On light sedation. Weaning ventilator down to FiO2 35% , ABG 7.47/31/147. chest imaging revealed moderate left and small to moderat bibasilar infiltrate/effusion worsening since previous day. on Zosyn/Flagyl. Continue propofol/fentanyl for sedation. Start sedation holiday in a.m. for possible extubation. Continue weaning vasopressors. December 25- [place] [id number]. Off vasopressors, T MAX 100, no chills. No anxiety, responding to verbal commands, on SBT/sedation holiday, Interval chest iamging shows atelectasis and pl effusion. alert. stable renal function. Diminishing urine output. A line and central line no localized bleeding or redness. No telemetry events. Possible extubation today.ABG 7.35/38/96 on 35% FiO2 and PEEP December 26-Successfully extubated yesterday morning. Remained stable overnight. The morning wanting to try to eat or drink something. WBC decreased from 23K to 19K. However, late this morning, developed leakage of bowel contents through part of her abdominal incision. Taken back to the operating room for exploratory laparotomy. Will likely require mechanical ventilation postoperatively. December 27-patient successfully underwent repair of small leak in the distal ileum yesterday. Remained intubated overnight. This morning during sedation vacation and spontaneous breathing trial, patient was saturating well on 35% room air, had good minute ventilation during the breathing trial. She is successfully extubated. We'll later, respirations became labored. She was receiving significant volumes of IV fluid with maintenance as well as supplements being infused. Responded well to low-dose furosemide with improvement in respiratory status. December 28-overnight, had recurrent respiratory distress, tachypnea, labored respirations with rales and wheezes. Responded to further furosemide about 1 AM. Had recurrent respiratory distress about 5:30 this morning. Respirations were labored, while on only 2 L nasal cannula, saturations are dropped from high 90s to low 90s. She had wheezes as well as rales on exam. Received 10 mg of IV furosemide with some urine output and mild improvement, however required BiPAP therapy. Receive further 20 mg of furosemide with brisk diuresis. Remains on BiPAP for respiratory support. Chest x-ray with worsening interstitial infiltrates. Exam also with significant jugular venous distention consistent with volume overload. Has been receiving albumin. December 29-patient continues on BiPAP. She is off for a while this morning, became dyspneic. Improved approximately 1-2 hours after morning furosemide dose. She tends to have more respiratory distress as the furosemide has worn off. Has been receiving furosemide every 8 hours with good diuresis. Renal functions remain stable. At one point was complaining to family that she did not want to keep going with therapy, though seems to improved later in the morning. December 30-on BiPAP most of the night. Urine output responding to 20 mg of Lasix every 6 hours, urine output tails off towards the end. Receiving albumin and Lasix scheduled. Overall respiratory status clinically improved. Changed over to high flow nasal cannula this morning which she is tolerating. She complains of feeling tired, doesn't think she is any better. december 31 Pt seen and examined, no acute overnight events. Patient's chest x-ray shows worsening infiltrate versus ARDS versus pneumonia. Patient is on Zosyn as well as Flagyl. Start on vancomycin IV. She has completed her albumin and Lasix dosing according to the nurse. X-ray chest to rule is worsened. Patient is on 35% FiO2 by high flow nasal cannula. She seems to be tolerating it well. Her oxygen level is maintained with this. The patient definitely is tachypneic. She still complains about significant abdominal pain. Lvyeb-qa-lnyy ultrasound done IVC reviewed, the patient has complete collapse of the IVC with inspiration. This indicates that the patient does not seem to be in fluid overload other is volume depleted after aggressive diuresis. For now we will just hold off on Lasix and monitor. january 01 Patient seen and examined, no acute overnight events. She did use BiPAP for a while and then went back to her high flow nasal cannula. Chest x-ray shows persistent infiltrates. Clinically she is not volume overloaded. Oxygen requirements are trending down. She does note that she is very tired and wanted to give up overnight but after talking with the family she decided to continue. I do not believe that the patient is end-stage at this point in time, and she has a chance of recovery. Hold off on diuresis for now. Start on Cymbalta 30 mg once a day, they should help her with some anxiety depression as well as chronic aches and pains. Plan of care reviewed with the patient as well as the family. Use BiPAP as much as tolerated. january 02 Pt seen examined, no acute overnight issues, tolerating bipap intermittently had a better night pain is also better she is in better spirits today. family by the bed side She had one episode of shortness of breath yesterday, which improved with duonebs. Her IVC also showed more distention than the previous day, although still collapsing completely. Will keep the patient on low dose of lasix 20mg dailiy to keep her lungs as dry as possible She is oxygenating well, will wean off the hi moon nasal canula today if she is able to. january 03 Pt seen examined, overnight was confused after use of xanasx, this am drowsy, as she had received dilaudid but overall she is stable no complaints when woken up on bipap for now she was sob when she was weaned off the hiflo nasal canula continue same. january 04 pt seen examined, no acute overnight events, pain well controlled, CXR yesterday showed worsening infiltrates, caspofungin started in light of worsening infiltrates yesterday and tracheal aspirate growing anil. Pt off hiflo nasal canula today remains on iv diuresis overall stable Pertinent ROS: Denies headache, dizziness Denies chest pain, palpitations Denies cough or shortness of breath abdominal pain stable, no nausea and or vomiting. . - Constitutional Vitals: Vital Signs Temp Pulse Resp BP Pulse Ox 97.9 F 89 20 132/72 94 01/04/18 11:51 01/04/18 13:08 01/04/18 14:55 01/04/18 11:51 01/04/18 14:55 Period Temp Pulse Resp BP Sys/[place] Pulse Ox Last 24 Hr 97.9 F-98.9 F 81-91 15-27 120-138/58-120 90-100 Intake and Output 01/04/18 01/04/18 01/04/18 05:59 13:59 21:59 Intake Total 200 / 200 250 / 250 Output Total 1595 / 1595 1610 / 1610 125 / 125 Balance -1395 / -1395 -1360 / -1360 -125 / -125 Intake & Output: Intake & Output 01/04/18 01/04/18 01/04/18 05:59 13:59 21:59 Intake Total 200 / 200 250 / 250 Output Total 1595 / 1595 1610 / 1610 125 / 125 Balance -1395 / -1395 -1360 / -1360 -125 / -125 Intake: IV 200 / 200 150 / 150 Zosyn 3.375 gm In Dextrose 5% 100 / 100 50 / 50 in Water 50 ml @ 100 mls/hr IV Q6H [facility] Rx#:[id number] Oral 100 / 100 Output: Drainage 20 / 20 10 / 10 0 / 0 RIDDHI A 10 10 / 10 0 / 0 RIDDHI B 10 / 10 Urine Catheter Amount 1500 / 1500 1600 / 1600 Stool 75 / 75 125 / 125 Other: Meal Breakfast Percent of Meal Consumed 0% Stool Color Brown Brown Green Stool Consistency Liquid Exam: Constitutional; Afebrile, cooperative, alert, not in distress. Eyes- No icterus, , No periorbital swelling Ears- Ext ear normal, hearing normal to conversation. Neck- Midline trachea, supple Respiratory system: Air Entry equal on both sides, No crackles or wheezing, no rhonchi. CVS- Rate rhythm regular, S1,S2 heard, no gallop, no rub. Abdomen- Soft nontender abdomen, no organomegaly, no tenderness, no guarding or rigidity, [employer]- AOOx3, moving all extremities, no gross focal deficit noted. Medical - PN: Obj Da - Labs CBC & Chem 7: 01/04/18 04:00 01/04/18 04:00 Labs: Abnormal Lab Results 01/04/18 01/04/18 01/03/18 04:00 04:00 04:00 RBC 3.11 L 3.08 L Hgb 7.8 L 7.8 L Hct 24.4 L 24.3 L MCV 78.3 L 78.8 L MCH 24.9 L 25.1 L RDW 15.7 H 16.2 H Gran % 78.3 H Lymph % (Auto) 6.9 L 8.2 L Gran # Lymph # (Auto) 0.6 L 0.7 L Potassium Carbon Dioxide BUN 30 H Glucose 143 H Uric Acid GGT 89 H NT-Pro-B Natriuret Pep Globulin 01/03/18 01/03/18 01/02/18 04:00 04:00 04:00 RBC Hgb Hct MCV MCH RDW Gran % Lymph % (Auto) Gran # Lymph # (Auto) Potassium Carbon Dioxide 31 H BUN 30 H Glucose 115 H Uric Acid 2.4 L GGT 90 H NT-Pro-B Natriuret Pep 3490.0 H 5915.0 H Globulin 2.0 L 01/02/18 01/02/18 04:00 04:00 RBC 3.11 L Hgb 7.7 L Hct 24.4 L MCV 78.5 L MCH 24.9 L RDW 15.7 H Gran % 86.6 H Lymph % (Auto) 4.9 L Gran # 8.6 H Lymph # (Auto) 0.5 L Potassium 5.4 H Carbon Dioxide BUN 33 H Glucose 126 H Uric Acid GGT 86 H NT-Pro-B Natriuret Pep Globulin 2.0 L Meds: Medications Albuterol/Ipratropium (Duoneb) 3 ml NEB Q6HRT [facility] Last Admin: 01/04/18 12:57 Dose: 3 ml Alprazolam (Xanax) 0.5 mg PO Q6HP PRN PRN Reason: Anxiety Artificial Tears (Artificial Tears Ophth Drops) 1 gtt OU QIDP PRN PRN Reason: Dry Eye(s) Dextrose (Dextrose 50%) 25 ml IV UD PRN PRN Reason: Hypoglycemia Diagnostic Test (Pha) (Accu-Chek) 1 each FS Q6 [facility] Last Admin: 01/04/18 12:44 Dose: 1 each Duloxetine HCl (Cymbalta) 30 mg PO DAILY [facility] Last Admin: 01/04/18 09:30 Dose: 30 mg Furosemide (Lasix) 20 mg IV BID [facility] Last Admin: 01/04/18 08:34 Dose: 20 mg Glucose Oxid/Lactoperoxid/Muramidas (Biotene) 1 each TOPICAL PRN PRN PRN Reason: Dry Mouth Heparin Sodium (Porcine) (Heparin Flush) 2 ml IV Q12 [facility] Last Admin: 01/04/18 08:34 Dose: 2 ml Hydromorphone HCl (Dilaudid) 1 mg IV Q2HP PRN PRN Reason: PAIN LEVEL > 6 Last Admin: 01/04/18 13:02 Dose: 1 mcg Magnesium Sulfate 16.24 meq/Potassium Phosphate 40 meq/Multivitamins/Minerals 10 ml/Selenium 60 mcg/ Potassium Chloride 100 meq/ Sodium Phosphate 30 mmol/ Sodium Chloride 40 meq/ Amino Acids 2,094.5909 mls @ 65 mls/hr IV Q24H [facility] Stop: 01/04/18 20:59 Caspofungin 50 mg/ Sodium (Chloride) 250 mls @ 250 mls/hr IV Q24H [facility] Last Admin: 01/04/18 09:32 Dose: 250 mls/hr Fat Emulsion Intravenous 250 (ml/ Premix) 250 mls @ 25 mls/hr IV TuThSa@1600 [facility] Heparin Sodium/Sodium Chloride (Heparin/Ns) 500 mls @ 0 mls/hr IV .Q0M [facility]; KVO PRN Reason: Protocol Metronidazole (Flagyl) 500 mg in 100 mls @ 100 mls/hr IV Q6H [facility] Last Admin: 01/04/18 12:44 Dose: 100 mls/hr Norepinephrine Bitartrate 16 (mg/ Sodium Chloride) 250 mls @ 9.37 mls/hr IV Q24H PRN; Protocol; 10 MCG/MIN PRN Reason: Hypotension Acetaminophen (Ofirmev) 1,000 mg in 100 mls @ 200 mls/hr IV Q6HP PRN PRN Reason: Pain Piperacillin Sod/Tazobactam (Sod 3.375 gm/ Dextrose) 50 mls @ 100 mls/hr IV Q6H [facility] Last Admin: 01/04/18 16:18 Dose: 100 mls/hr Vancomycin HCl 1,000 mg/ (Sodium Chloride) 250 mls @ 250 mls/hr IV Q24H [facility] Last Admin: 01/04/18 12:46 Dose: 250 mls/hr Magnesium Sulfate 8.12 meq/Potassium Phosphate 20 meq/Multivitamins/Minerals 10 ml/Selenium 60 mcg/ Potassium Chloride 50 meq/ Sodium Phosphate 15 mmol/ Sodium Chloride 40 meq/ Amino Acids 1,058.0455 mls @ 65 mls/hr IV Q24H [facility] Insulin Human Lispro (Humalog) 0 unit SQ Q6 [facility] PRN Reason: Protocol Last Admin: 01/04/18 12:48 Dose: Not Given Metoclopramide HCl (Reglan) 5 mg IV Q8H [facility] Last Admin: 01/04/18 07:40 Dose: 5 mg Ondansetron HCl (Zofran) 4 mg IV Q4HP PRN PRN Reason: Nausea And Vomiting Pantoprazole Sodium (Protonix) 40 mg IV BIDAC [facility] Last Admin: 01/04/18 06:56 Dose: 40 mg Promethazine HCl (Phenergan) 12.5 mg IV Q4HP PRN PRN Reason: Nausea And Vomiting Sodium Chloride (Saline Flush) 10 ml IV UD PRN PRN Reason: FLUSH Sodium Chloride (Saline Flush) 10 ml IV Q8 [facility] Last Admin: 01/04/18 14:24 Dose: 10 ml Vancomycin HCl (Vancomycin Per Pharmacy) 1 order IV UD [facility] Medical - PN: A/P - Time Spent With Patient Total time spent is greater than 50% in coordination of care (as documented) at patient's floor/unit and/or counseling patient: - Narrative A/P Narrative: 77-year-old female, status post exploratory laparotomy in attempt for ileostomy takedown after prior Clark's procedure last May. Unable to accomplish anastomosis due to friable tissues. Status post exploratory laparotomy. Management per surgery. Still requires delayed closure of abdominal wound. Hospitalist consult for postoperative respiratory failure and mechanical ventilation. s/p exubation, day 8 today Had deterioration after extubation needing bipap, Presently on hiflo nasal canula, using bipap intermittently successfully weaned off hi moon nasal canula this AM, on room air to 2l nc no resp distress Prn bipap support if resp condition worsens low dose lasix 20mg bid daily to keep lungs as dry as possible. Can cut back to once daily Possible HCAP PNA Pt already on zosyn, add vanco for now and monitor. d5 today of vanco,can discontinue vancomycin tomorrow CAspofungin added yesteday, d2 today. in light of positive cultures of nail and worsening infiltrates despite clinically being dry. Acute hypoxic respiratory failure. Now secondary to volume overload from fluid shifts Plan: As above. Anemia: Hb 7.8 stable anxiety - depression-chronic pain. on cymbalta, tolerating it well. F/E/N: On TPN. dvt [facility] Medical - PN: Qual - VTE Deep Vein Thrombosis/Pulmonary Embolism Present on Admission: No Procedures - Arterial Line Size (Gauge): 20
[2018-01-04] MEDS ORDERED: [UNRECOGNIZED DRUG - REMARK] IV SCH (21:00)
[2018-01-04] MEDS: ALPRAZolam 0.5 MG TABLET PO PRN (21:42)
[2018-01-05] MEDS: METOCLOPRAMIDE 10 MG/2 ML VIAL IV SCH ×3 (00:52→16:56)
[2018-01-05] MEDS: INSULIN LISPRO 1 UNIT/0.01 ML UNIT SQ SCH ×4 (00:52→18:00)
[2018-01-05] MEDS: metroNIDAZOLE 500 MG/100 ML BAG IV SCH ×5 (00:52→23:45)
[2018-01-05] MEDS: IPRATROPIUM/ALBUTEROL 3 ML AMPUL.NEB NEB SCH ×4 (02:36→18:54)
[2018-01-05] MEDS: HYDROmorphone 2 MG/ML VIAL IV PRN ×6 (03:17→22:25)
[2018-01-05] MEDS: PIPERACILLIN SODIUM/TAZOBACTAM 3.375 GM in DEXTROSE 5% IN WATER 50 ML IV SCH ×4 (04:45→23:45)
[2018-01-05 07:05] LABS: ALT/SGPT 5 U/l (0-40); Albumin 4.2 gm/dL (3.2-5.2); Albumin/Globulin Ratio 1.8 (1.0-2.3); Alkaline Phosphatase 64 U/L (39-117); Basophils # (Auto) 0 K/mcL (0.0-0.3); Basophils % (Auto) 0.2 % (0.0-2.0); Bilirubin,Direct < 0.2 mg/dL (0.0-0.3); Blood Urea Nitrogen 23 mg/dl (8-23); Eosinophils # (Auto) 0.4 K/mcL (0.0-0.7); Eosinophils % (Auto) 3.1 % (0.0-7.0); Gamma Glutamyl Transpeptidase 94 U/L (5-36); Granulocytes % (Auto) 80.6 % (38.0-78.0); Lymphocytes # (Auto) 0.8 K/mcL (1.5-4.8); Lymphocytes % (Auto) 7.1 % (15.5-49.0); Mean Cell Volume 77.7 fL (80.0-100.0); Mean Corpuscular HGB Conc 32.5 g/dL (31.0-36.0); Mean Corpuscular Hemoglobin 25.2 pg (26.0-34.0); Platelet Count 459 K/mcL (140-440); RBC 3.24 M/mcL (4.00-5.20); Red Cell Distribution Width 16.1 % (11.5-14.5); Uric Acid 2.8 mg/dL (2.5-8.0)
[2018-01-05] MEDS: FUROSEMIDE 20 MG/2 ML VIAL IV SCH ×2 (08:34→21:03)
[2018-01-05] MEDS: DULoxetine 30 MG CAPSULE PO SCH (08:34)
[2018-01-05] MEDS: PANTOPRAZOLE 40 MG VIAL IV SCH ×2 (08:34→16:56)
[2018-01-05] MEDS: 0.9 % SODIUM CHLORIDE 10 ML SYRINGE IV SCH ×3 (08:35→21:04)
[2018-01-05] MEDS: CASPOFUNGIN ACETATE 50 MG in 0.9 % SODIUM CHLORIDE 250 ML IV SCH (09:47)
--- NOTE | 2018-01-05 09:51 | Internal Med Progress Note ---
Medical - PN: Subj Patient information: Note initiated : 01/05/18 at 9:49 am Service Date, if different from initiated Date: [] Patient: Caroline Bellamy a 77 y/o F admitted on 12/23/17 for Ileostomy Closure and Colorectal Anastomosis. Chief Complaint: [] Interval history: December 23-Ms. Adiel Cardoso is a 77 year old F with a complex history with hospitalization May 2017 with diverticulitis perforation/peritonitis and prolonged hospital stay. 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 Hospitalization course was complicated by respiratory failure requiring mechanical ventilation and intra-abdominal infection with Pseudomonas. She underwent rehabilitation/TPN and prolonged hospitalization and was gradually recovering. She she now underwent expiratory laparotomy with extensive epidural lysis and small bowel resection. Postoperatively patient was unable to be extubated. Subsequently hospitalist service was consulted and patient was brought into the ICU on mechanical ventilation. patient currently on propofol/fentanyl. No family members available. systolics around 100. Patient has a line. Foleys catheter draining clear urine December 24-patient on mechanical ventilation. Map at 65 on 5 mics Levophed. Improving urine output. On light sedation. Weaning ventilator down to FiO2 35% , ABG 7.47/31/147. chest imaging revealed moderate left and small to moderat bibasilar infiltrate/effusion worsening since previous day. on Zosyn/Flagyl. Continue propofol/fentanyl for sedation. Start sedation holiday in a.m. for possible extubation. Continue weaning vasopressors. December 25- [place] [id number]. Off vasopressors, T MAX 100, no chills. No anxiety, responding to verbal commands, on SBT/sedation holiday, Interval chest iamging shows atelectasis and pl effusion. alert. stable renal function. Diminishing urine output. A line and central line no localized bleeding or redness. No telemetry events. Possible extubation today.ABG 7.35/38/96 on 35% FiO2 and PEEP December 26-Successfully extubated yesterday morning. Remained stable overnight. The morning wanting to try to eat or drink something. WBC decreased from 23K to 19K. However, late this morning, developed leakage of bowel contents through part of her abdominal incision. Taken back to the operating room for exploratory laparotomy. Will likely require mechanical ventilation postoperatively. December 27-patient successfully underwent repair of small leak in the distal ileum yesterday. Remained intubated overnight. This morning during sedation vacation and spontaneous breathing trial, patient was saturating well on 35% room air, had good minute ventilation during the breathing trial. She is successfully extubated. We'll later, respirations became labored. She was receiving significant volumes of IV fluid with maintenance as well as supplements being infused. Responded well to low-dose furosemide with improvement in respiratory status. December 28-overnight, had recurrent respiratory distress, tachypnea, labored respirations with rales and wheezes. Responded to further furosemide about 1 AM. Had recurrent respiratory distress about 5:30 this morning. Respirations were labored, while on only 2 L nasal cannula, saturations are dropped from high 90s to low 90s. She had wheezes as well as rales on exam. Received 10 mg of IV furosemide with some urine output and mild improvement, however required BiPAP therapy. Receive further 20 mg of furosemide with brisk diuresis. Remains on BiPAP for respiratory support. Chest x-ray with worsening interstitial infiltrates. Exam also with significant jugular venous distention consistent with volume overload. Has been receiving albumin. December 29-patient continues on BiPAP. She is off for a while this morning, became dyspneic. Improved approximately 1-2 hours after morning furosemide dose. She tends to have more respiratory distress as the furosemide has worn off. Has been receiving furosemide every 8 hours with good diuresis. Renal functions remain stable. At one point was complaining to family that she did not want to keep going with therapy, though seems to improved later in the morning. December 30-on BiPAP most of the night. Urine output responding to 20 mg of Lasix every 6 hours, urine output tails off towards the end. Receiving albumin and Lasix scheduled. Overall respiratory status clinically improved. Changed over to high flow nasal cannula this morning which she is tolerating. She complains of feeling tired, doesn't think she is any better. december 31 Pt seen and examined, no acute overnight events. Patient's chest x-ray shows worsening infiltrate versus ARDS versus pneumonia. Patient is on Zosyn as well as Flagyl. Start on vancomycin IV. She has completed her albumin and Lasix dosing according to the nurse. X-ray chest to rule is worsened. Patient is on 35% FiO2 by high flow nasal cannula. She seems to be tolerating it well. Her oxygen level is maintained with this. The patient definitely is tachypneic. She still complains about significant abdominal pain. [id number] ultrasound done IVC reviewed, the patient has complete collapse of the IVC with inspiration. This indicates that the patient does not seem to be in fluid overload other is volume depleted after aggressive diuresis. For now we will just hold off on Lasix and monitor. january 01 Patient seen and examined, no acute overnight events. She did use BiPAP for a while and then went back to her high flow nasal cannula. Chest x-ray shows persistent infiltrates. Clinically she is not volume overloaded. Oxygen requirements are trending down. She does note that she is very tired and wanted to give up overnight but after talking with the family she decided to continue. I do not believe that the patient is end-stage at this point in time, and she has a chance of recovery. Hold off on diuresis for now. Start on Cymbalta 30 mg once a day, they should help her with some anxiety depression as well as chronic aches and pains. Plan of care reviewed with the patient as well as the family. Use BiPAP as much as tolerated. january 02 Pt seen examined, no acute overnight issues, tolerating bipap intermittently had a better night pain is also better she is in better spirits today. family by the bed side She had one episode of shortness of breath yesterday, which improved with duonebs. Her IVC also showed more distention than the previous day, although still collapsing completely. Will keep the patient on low dose of lasix 20mg dailiy to keep her lungs as dry as possible She is oxygenating well, will wean off the hi moon nasal canula today if she is able to. january 03 Pt seen examined, overnight was confused after use of xanasx, this am drowsy, as she had received dilaudid but overall she is stable no complaints when woken up on bipap for now she was sob when she was weaned off the hiflo nasal canula continue same. january 04 pt seen examined, no acute overnight events, pain well controlled, CXR yesterday showed worsening infiltrates, caspofungin started in light of worsening infiltrates yesterday and tracheal aspirate growing anil. Pt off hiflo nasal canula today remains on iv diuresis overall stable 01/05- patient doing well. No overnight events. Diuresing well. Able to get out of bed to chair. Slightly short of breath but on room air. Much improved lymphedema. Tolerating diet advancement per surgery. On supplemental TPN currently being weaned. No overnight fever chills or concerns per staff. Stable hemodynamics and labs.hemoglobin 8.2 - Constitutional Vitals: Vital Signs Temp Pulse Resp BP Pulse Ox 98.0 F 85 16 122/59 94 01/05/18 08:01 01/05/18 07:28 01/05/18 08:01 01/05/18 08:01 01/05/18 04:00 Period Temp Pulse Resp BP Sys/[place] Pulse Ox Last 24 Hr 97.9 F-98.9 F 83-99 14-27 110-146/58-120 89-96 Intake and Output 01/04/18 01/05/18 01/05/18 21:59 05:59 13:59 Intake Total 150 / 150 650 / 650 78 / 78 Output Total 1425 / 1425 945 / 945 10 Balance -1275 / -1275 -295 / -295 68 / Weight 146 lb Intake & Output: Intake & Output 01/04/18 01/05/18 01/05/18 21:59 05:59 13:59 Intake Total 150 / 150 650 / 650 78 / 78 Output Total 1425 / 1425 945 / 945 Balance -1275 / -1275 -295 / -295 68 / 68 Weight 146 lb Intake: IV 150 / 150 650 / 650 78 / 78 Cancidas 50 mg In Sodium 250 / 250 Chloride 0.9% 250 ml @ 250 mls/ hr IV Q24H [facility] Rx#:[id number] Zosyn 3.375 gm In Dextrose 5% 50 / 50 50 / 50 in Water 50 ml @ 100 mls/hr IV Q6H [facility] Rx#:[id number] Vancomycin 1,000 mg In Sodium 250 / 250 Chloride 0.9% 250 ml @ 250 mls/ hr IV Q24H [facility] Rx#:[id number] Oral 0 / 0 Output: Drainage 0 / 0 20 / 20 10 / 10 RIDDHI A 0 / 0 10 / 10 10 / 10 RIDDHI B 10 / 10 Urine Catheter Amount 1250 / 1250 900 / 900 Stool 175 / 175 25 / 25 Other: Stool Color Brown Stool Consistency Liquid # Emeses 1 General appearance: no acute distress Exam: improve lymphedema Shallow labored breathing Abdomen soft no telemetry events minimal anxiety Foleys draining clear urine Medical - PN: Obj Da - Labs CBC & Chem 7: 01/05/18 06:05 01/05/18 06:05 Labs: Abnormal Lab Results 01/05/18 01/05/18 01/04/18 06:05 06:05 04:00 WBC 11.6 H RBC 3.24 L Hgb 8.2 L Hct 25.2 L MCV 77.7 L MCH 25.2 L RDW 16.1 H Plt Count 459 H Gran % 80.6 H Lymph % (Auto) 7.1 L Gran # 9.4 H Lymph # (Auto) 0.8 L Upson # (Auto) 1.0 H Chloride 95 L Carbon Dioxide BUN 30 H Glucose 122 H 143 H Uric Acid GGT 94 H 89 H NT-Pro-B Natriuret Pep Globulin 01/04/18 01/03/18 01/03/18 04:00 04:00 04:00 WBC RBC 3.11 L 3.08 L Hgb 7.8 L 7.8 L Hct 24.4 L 24.3 L MCV 78.3 L 78.8 L MCH 24.9 L 25.1 L RDW 15.7 H 16.2 H Plt Count Gran % 78.3 H Lymph % (Auto) 6.9 L 8.2 L Gran # Lymph # (Auto) 0.6 L 0.7 L Upson # (Auto) Chloride Carbon Dioxide BUN Glucose Uric Acid GGT NT-Pro-B Natriuret Pep 3490.0 H Globulin 01/03/18 04:00 WBC RBC Hgb Hct MCV MCH RDW Plt Count Gran % Lymph % (Auto) Gran # Lymph # (Auto) Upson # (Auto) Chloride Carbon Dioxide 31 H BUN 30 H Glucose 115 H Uric Acid 2.4 L GGT 90 H NT-Pro-B Natriuret Pep Globulin 2.0 L Meds: Medications Albuterol/Ipratropium (Duoneb) 3 ml NEB Q6HRT [facility] Last Admin: 01/05/18 07:19 Dose: 3 ml Alprazolam (Xanax) 0.5 mg PO Q6HP PRN PRN Reason: Anxiety Last Admin: 01/04/18 21:42 Dose: 0.5 mg Artificial Tears (Artificial Tears Ophth Drops) 1 gtt OU QIDP PRN PRN Reason: Dry Eye(s) Dextrose (Dextrose 50%) 25 ml IV UD PRN PRN Reason: Hypoglycemia Diagnostic Test (Pha) (Accu-Chek) 1 each FS Q6 [facility] Last Admin: 01/05/18 08:33 Dose: 1 each Duloxetine HCl (Cymbalta) 30 mg PO DAILY [facility] Last Admin: 01/05/18 08:34 Dose: 30 mg Furosemide (Lasix) 20 mg IV BID [facility] Last Admin: 01/05/18 08:34 Dose: 20 mg Glucose Oxid/Lactoperoxid/Muramidas (Biotene) 1 each TOPICAL PRN PRN PRN Reason: Dry Mouth Heparin Sodium (Porcine) (Heparin Flush) 2 ml IV Q12 [facility] Last Admin: 01/05/18 08:34 Dose: 2 ml Hydromorphone HCl (Dilaudid) 1 mg IV Q2HP PRN PRN Reason: PAIN LEVEL > 6 Last Admin: 01/05/18 03:17 Dose: 1 mcg Caspofungin 50 mg/ Sodium (Chloride) 250 mls @ 250 mls/hr IV Q24H [facility] Last Admin: 01/05/18 09:47 Dose: 250 mls/hr Fat Emulsion Intravenous 250 (ml/ Premix) 250 mls @ 25 mls/hr IV TuThSa@1600 [facility] Heparin Sodium/Sodium Chloride (Heparin/Ns) 500 mls @ 0 mls/hr IV .Q0M [facility]; KVO PRN Reason: Protocol Metronidazole (Flagyl) 500 mg in 100 mls @ 100 mls/hr IV Q6H [facility] Last Infusion: 01/05/18 06:47 Dose: 100 mls/hr Norepinephrine Bitartrate 16 (mg/ Sodium Chloride) 250 mls @ 9.37 mls/hr IV Q24H PRN; Protocol; 10 MCG/MIN PRN Reason: Hypotension Acetaminophen (Ofirmev) 1,000 mg in 100 mls @ 200 mls/hr IV Q6HP PRN PRN Reason: Pain Piperacillin Sod/Tazobactam (Sod 3.375 gm/ Dextrose) 50 mls @ 100 mls/hr IV Q6H [facility] Last Admin: 01/05/18 04:45 Dose: 100 mls/hr Vancomycin HCl 1,000 mg/ (Sodium Chloride) 250 mls @ 250 mls/hr IV Q24H [facility] Last Infusion: 01/04/18 23:06 Dose: Infused Magnesium Sulfate 8.12 meq/Potassium Phosphate 20 meq/Multivitamins/Minerals 10 ml/Selenium 60 mcg/ Potassium Chloride 50 meq/ Sodium Phosphate 15 mmol/ Sodium Chloride 40 meq/ Amino Acids 1,058.0455 mls @ 65 mls/hr IV Q24H [facility] Last Admin: 01/05/18 00:36 Dose: 65 mls/hr Insulin Human Lispro (Humalog) 0 unit SQ Q6 [facility] PRN Reason: Protocol Last Admin: 01/05/18 08:00 Dose: Not Given Metoclopramide HCl (Reglan) 5 mg IV Q8H [facility] Last Admin: 01/05/18 08:35 Dose: 5 mg Ondansetron HCl (Zofran) 4 mg IV Q4HP PRN PRN Reason: Nausea And Vomiting Last Admin: 01/04/18 21:42 Dose: 4 mg Pantoprazole Sodium (Protonix) 40 mg IV BIDAC [facility] Last Admin: 01/05/18 08:34 Dose: 40 mg Promethazine HCl (Phenergan) 12.5 mg IV Q4HP PRN PRN Reason: Nausea And Vomiting Sodium Chloride (Saline Flush) 10 ml IV UD PRN PRN Reason: FLUSH Sodium Chloride (Saline Flush) 10 ml IV Q8 [facility] Last Admin: 01/05/18 08:35 Dose: 10 ml Vancomycin HCl (Vancomycin Per Pharmacy) [address] [facility] [place] Medical - PN: A/P - Time Spent With Patient Total time spent is greater than 50% in coordination of care (as documented) at patient's floor/unit and/or counseling patient: 15 - 24 minutes (1) On mechanically assisted ventilation Status: Acute Assessment and plan: * status post exploratory laparotomy.ongoing management per surgery Hospitalist consult for postoperative respiratory failure and mechanical ventilation. s/p exubation, day 8 today * healthcare associated pneumonia-on Zosyn/vancomycin. Sputum culture Anil. On caspofungin * hypoxic respiratory failure-clinically improved. And off BiPAP. Currentlyon room air * sepsis-clinically resolved. White count 11.6 * Anemia hemoglobin stable at 8.2 * Anxiety- on cymbalta * FEN-on TPN. Wean his diet advancement Plan * DC vancomycin 24 hours * Transfer to medical floor if approved by surgery * Pre-existing medical condition management as above * aggressive physical therapy * DC Riggs's catheter in 24 hours Current Visit: Yes Medical - PN: Qual - VTE Deep Vein Thrombosis/Pulmonary Embolism Present on Admission: No Procedures - Arterial Line Size (Gauge): 20
[2018-01-05] MEDS: VANCOMYCIN 1,000 MG in 0.9 % SODIUM CHLORIDE 250 ML IV SCH (13:16)
--- NOTE | 2018-01-05 13:27 | General Surgery Progress Note ---
Subjective Patient reports: feels better, pain is less, tolerating liquids well, flatus, bowel movement, diarrhea, shortness of breath, afebrile Narrative: Note initiated : 01/05/18 at 1:25 pm Service Date, if different from initiated Date: [] Patient: Caroline Bellamy 77 y/o F admitted on 12/23/17 for Ileostomy Closure and Colorectal Anastomosis. Chief Complaint: [Patient is gradually improving. She has less discomfort than she had on yesterday. She is breathing much better today and is on room air. She has not used BiPAP for 24 hours. She was able to get out of bed in the chair for about 20 minutes today. Her bowel movements are good. She does not have any increase in drainage through her abdominal drain. Her p.o. intake is still minimal but she has been encouraged to eat food from home.] Objective Temp Pulse Resp BP Pulse Ox 98.7 F 87 17 133/76 95 01/05/18 12:00 01/05/18 12:51 01/05/18 12:51 01/05/18 12:01 01/05/18 12:01 - Additional Data Intake & Output - Last 24 hours: Intake & Output 01/03/18 01/04/18 01/05/18 01/06/18 05:59 05:59 05:59 05:59 Intake Total 3486 / 3486 1200 / 1200 1200 / 1200 200 / 200 Output Total 3470 / 3470 5145 / 5145 3980 / 3980 1010 / 1010 Balance 16 / 16 -3945 / -3945 -2780 / -2780 -810 / -810 Weight 147 lb 12.8 oz 146 lb 14.4 oz 146 lb - General physical appearance well developed, well nourished, no distress - Eyes PERRL, normal ocular movement - ENT normal pinna, normal nares, normal mucosa, no hearing loss, no congestion - Neck no masses, no bruits, trachea midline, no lymphadectomy, no venous distension - Respiratory normal expansion, normal respiratory effort, other (Few coarse wheezes and rhonchi bilaterally) - Cardiovascular Cardiovascular exam: Present: normal rate and rhythm, RRR, +S1, +S2. Absent: JVD, tachycardia - Abdomen non tender, bowel sounds (present), surgical scars (none), wound (Surgical wound is still clean with a fibrinous base), masses (none) - Integumentary no rash, no growths, no abnormal pigmentation - Neurologic other (Diffusely weak but able to ambulate short distances with assistance) - Psychiatric oriented to time, oriented to person, oriented to place, speech is normal, memory intact - Labs 01/05/18 06:05 01/05/18 06:05 Diabetes panel 01/05/18 01/05/18 Range/Units 03:30 06:05 Sodium Not Reportable 133 Potassium Not Reportable 4.8 Chloride Not Reportable 95 L Carbon Dioxide Not Reportable 26 BUN Not Reportable 23 Creatinine Not Reportable 0.7 Glucose TNP 122 H Calcium Not Reportable 9.2 AST Not Reportable 9 ALT Not Reportable 5 Alkaline Phosphatase Not Reportable 64 Total Protein Not Reportable 6.5 Albumin Not Reportable 4.2 Triglycerides Not Reportable 56 Calcium panel 01/05/18 01/05/18 Range/Units 03:30 06:05 Calcium Not Reportable 9.2 Phosphorus Not Reportable 4.1 Albumin Not Reportable 4.2 Pituitary panel 01/05/18 01/05/18 Range/Units 03:30 06:05 Sodium Not Reportable 133 Potassium Not Reportable 4.8 Chloride Not Reportable 95 L Carbon Dioxide Not Reportable 26 BUN Not Reportable 23 Creatinine Not Reportable 0.7 Glucose TNP 122 H Calcium Not Reportable 9.2 Adrenal panel 01/05/18 01/05/18 Range/Units 03:30 06:05 Sodium Not Reportable 133 Potassium Not Reportable 4.8 Chloride Not Reportable 95 L Carbon Dioxide Not Reportable 26 BUN Not Reportable 23 Creatinine Not Reportable 0.7 Glucose TNP 122 H Calcium Not Reportable 9.2 Total Bilirubin Not Reportable 0.4 AST Not Reportable 9 ALT Not Reportable 5 Alkaline Phosphatase Not Reportable 64 Total Protein Not Reportable 6.5 Albumin Not Reportable 4.2 Assessment and Plan (1) Ileostomy status Status: Acute Assessment and plan: STOMA IS WORKING FINE Current Visit: Yes (2) Protein-calorie malnutrition, moderate Status: Acute Assessment and plan: Continue TPN and advance as tolerated Current Visit: No (3) Enterocutaneous fistula Status: Resolved Assessment and plan: No evidence of further leak at this time advance to diet as tolerated Current Visit: Yes (4) Volume overload Status: Resolved Assessment and plan: BUN is beginning to rise which may suggest intravenous volume contraction. Current Visit: Yes - Time Spent With Patient Total time spent is greater than 50% in coordination of care (as documented) at patient's floor/unit and/or counseling patient:
[2018-01-05] MEDS ORDERED: FAT EMULSION 20% 250 ML in PREMIX 1 BAG IV SCH (16:00)
[2018-01-05] MEDS: ALPRAZolam 0.5 MG TABLET PO PRN ×2 (17:30→23:45)
[2018-01-05] MEDS ORDERED: [UNRECOGNIZED DRUG - REMARK] IV SCH (18:00)
[2018-01-06] MEDS: INSULIN LISPRO 1 UNIT/0.01 ML UNIT SQ SCH ×4 (00:16→17:16)
[2018-01-06] MEDS: METOCLOPRAMIDE 10 MG/2 ML VIAL IV SCH ×4 (01:04→23:39)
[2018-01-06] MEDS: IPRATROPIUM/ALBUTEROL 3 ML AMPUL.NEB NEB SCH ×4 (01:30→19:47)
[2018-01-06] MEDS: HYDROmorphone 2 MG/ML VIAL IV PRN ×7 (03:55→21:46)
[2018-01-06] MEDS: metroNIDAZOLE 500 MG/100 ML BAG IV SCH ×4 (05:38→23:39)
[2018-01-06] MEDS: PIPERACILLIN SODIUM/TAZOBACTAM 3.375 GM in DEXTROSE 5% IN WATER 50 ML IV SCH ×4 (05:38→22:52)
[2018-01-06 06:00] LABS: Basophils # (Auto) 0 K/mcL (0.0-0.3); Basophils % (Auto) 0.2 % (0.0-2.0); Eosinophils # (Auto) 0.5 K/mcL (0.0-0.7); Eosinophils % (Auto) 3.3 % (0.0-7.0); Lymphocytes # (Auto) 0.7 K/mcL (1.5-4.8); Lymphocytes % (Auto) 4.2 % (15.5-49.0); Mean Corpuscular Hemoglobin 25.1 pg (26.0-34.0); Monocytes # (Auto) 1.1 K/mcL (0.1-0.9); Monocytes % (Auto) 7.3 % (1.0-12.0); Platelet Count 476 K/mcL (140-440); RBC 3.15 M/mcL (4.00-5.20); Red Cell Distribution Width 15.4 % (11.5-14.5)
[2018-01-06] MEDS: 0.9 % SODIUM CHLORIDE 10 ML SYRINGE IV SCH ×3 (06:30→21:48)
[2018-01-06 06:50] LABS: ALT/SGPT 6 U/l (0-40); Albumin/Globulin Ratio 1.6 (1.0-2.3); Alkaline Phosphatase 69 U/L (39-117); Bilirubin,Direct < 0.2 mg/dL (0.0-0.3); Blood Urea Nitrogen 31 mg/dl (8-23); Gamma Glutamyl Transpeptidase 96 U/L (5-36); Uric Acid 3.1 mg/dL (2.5-8.0)
[2018-01-06] MEDS ORDERED: [UNRECOGNIZED DRUG - REMARK] IV SCH (08:00)
[2018-01-06] MEDS: PANTOPRAZOLE 40 MG VIAL IV SCH ×2 (08:52→16:15)
[2018-01-06] MEDS: ALPRAZolam 0.5 MG TABLET PO PRN ×3 (08:54→21:46)
[2018-01-06] MEDS: DULoxetine 30 MG CAPSULE PO SCH (08:54)
[2018-01-06] MEDS: FUROSEMIDE 20 MG/2 ML VIAL IV SCH ×2 (08:54→16:11)
[2018-01-06] MEDS: CASPOFUNGIN ACETATE 50 MG in 0.9 % SODIUM CHLORIDE 250 ML IV SCH (10:26)
[2018-01-06] MEDS: VANCOMYCIN 1,000 MG in 0.9 % SODIUM CHLORIDE 250 ML IV SCH (12:45)
[2018-01-06] MEDS ORDERED: BACITRACIN 50,000 UNIT VIAL IR ONE (14:43)
--- NOTE | 2018-01-06 14:44 | General Surgery Progress Note ---
Subjective Patient reports: feels better, pain is less, tolerating a regular diet, flatus, bowel movement, shortness of breath, afebrile Narrative: Note initiated : 01/06/18 at 2:42 pm Service Date, if different from initiated Date: [] Patient: Caroline Bellamy 77 y/o F admitted on 12/23/17 for Ileostomy Closure and Colorectal Anastomosis. Chief Complaint: [Patient is clinically improved. She has some dyspnea but maintains excellent SaO2 on room air. Her pain is controlled. She is intermittently agitated but that is her baseline. She denies nausea and she is tolerating more regular food on a daily basis. She is reluctant to participate in physical therapy but the nurses are advised to be more persistent with her. She is afebrile. She is stable enough to be transferred to the floor but will need more aggressive physical therapy.] Objective Temp Pulse Resp BP Pulse Ox 98.9 F 86 21 127/68 97 01/06/18 11:49 01/06/18 13:45 01/06/18 13:45 01/06/18 11:49 01/06/18 12:00 - Additional Data Intake & Output - Last 24 hours: Intake & Output 01/04/18 01/05/18 01/06/18 01/07/18 05:59 05:59 05:59 05:59 Intake Total 1200 / 1200 1200 / 1200 1650 / 1650 650 / 650 Output Total 5145 / 5145 3980 / 3980 3180 / 3180 595 / 595 Balance -3945 / -3945 -2780 / -2780 -1530 / -1530 55 / 55 Weight 146 lb 14.4 oz 146 lb 142 lb 3.2 oz - General physical appearance well developed, no distress - Eyes PERRL, normal ocular movement - ENT normal pinna, normal nares, normal mucosa, no hearing loss, no congestion - Neck no masses, no venous distension - Respiratory normal expansion, clear to auscultation, other (Mild exertional dyspnea with few scattered wheezes) - Cardiovascular Cardiovascular exam: Present: normal rate and rhythm, RRR, +S1, +S2. Absent: JVD, tachycardia - Abdomen non tender, bowel sounds (present), surgical scars (none), wound (Wound base is clean; will try to clean the wound and close before the weekend), masses (none) - Integumentary no rash, no growths, no abnormal pigmentation - Neurologic normal coordination, normal sensation - Musculoskeletal normal gait, normal posture - Psychiatric oriented to time, oriented to person, oriented to place, speech is normal, memory intact - Labs 01/06/18 03:50 01/06/18 03:50 Diabetes panel 01/06/18 Range/Units 03:50 Sodium 133 (133-145) mmol/L Potassium 4.3 (3.3-5.1) mmol/L Chloride 96 (96-108) mmol/L Carbon Dioxide 25 (22-30) mmol/L BUN 31 H (8-23) mg/dl Creatinine 0.7 (0.6-1.1) mg/dl Glucose 109 H (70-105) mg/dL Calcium 9.0 (8.6-10.4) mg/dl AST 11 (0-37) U/l ALT 6 (0-40) U/l Alkaline Phosphatase 69 (39-117) U/L Total Protein 6.5 (5.9-8.4) gm/dL Albumin 4.0 (3.2-5.2) gm/dL Triglycerides 66 (<150) mg/dl Calcium panel 01/06/18 Range/Units 03:50 Calcium 9.0 (8.6-10.4) mg/dl Phosphorus 3.7 (2.7-4.5) mg/dL Albumin 4.0 (3.2-5.2) gm/dL Pituitary panel 01/06/18 Range/Units 03:50 Sodium 133 (133-145) mmol/L Potassium 4.3 (3.3-5.1) mmol/L Chloride 96 (96-108) mmol/L Carbon Dioxide 25 (22-30) mmol/L BUN 31 H (8-23) mg/dl Creatinine 0.7 (0.6-1.1) mg/dl Glucose 109 H (70-105) mg/dL Calcium 9.0 (8.6-10.4) mg/dl Adrenal panel 01/06/18 Range/Units 03:50 Sodium 133 (133-145) mmol/L Potassium 4.3 (3.3-5.1) mmol/L Chloride 96 (96-108) mmol/L Carbon Dioxide 25 (22-30) mmol/L BUN 31 H (8-23) mg/dl Creatinine 0.7 (0.6-1.1) mg/dl Glucose 109 H (70-105) mg/dL Calcium 9.0 (8.6-10.4) mg/dl Total Bilirubin 0.3 (0.0-1.0) mg/dL AST 11 (0-37) U/l ALT 6 (0-40) U/l Alkaline Phosphatase 69 (39-117) U/L Total Protein 6.5 (5.9-8.4) gm/dL Albumin 4.0 (3.2-5.2) gm/dL Assessment and Plan (1) Ileostomy status Status: Acute Assessment and plan: STOMA IS WORKING FINE Current Visit: Yes (2) Protein-calorie malnutrition, moderate Status: Acute Assessment and plan: TPN to be tapered off Current Visit: No (3) Enterocutaneous fistula Status: Resolved Assessment and plan: No evidence of further leak at this time advance to diet as tolerated Current Visit: Yes (4) Volume overload Status: Resolved Assessment and plan: BUN is beginning to rise which may suggest intravenous volume contraction. Current Visit: Yes - Time Spent With Patient Total time spent is greater than 50% in coordination of care (as documented) at patient's floor/unit and/or counseling patient:
[2018-01-06] MEDS ORDERED: DEXTROSE 50% 50 ML VIAL IV PRN (15:11)
[2018-01-06] MEDS ORDERED: HEPARIN/NS 500 ML IV SCH (15:11)
[2018-01-06] MEDS ORDERED: TPN PER PHARMACY IV SCH (15:11)
[2018-01-06] MEDS ORDERED: ONDANSETRON 4 MG/2 ML VIAL IV PRN (15:11)
[2018-01-06] MEDS ORDERED: LACTOPEROXI/GLUC OXID/POT THIO 1 EACH GEL..EA. TOPICAL PRN (15:11)
[2018-01-06] MEDS ORDERED: POLYVINYL ALCOHOL OPHTH DROPS 15ML BOTTLE OU PRN (15:11)
[2018-01-06] MEDS ORDERED: PROMETHAZINE 25 MG/ML VIAL IV PRN (15:11)
[2018-01-06] MEDS ORDERED: FUROSEMIDE 20 MG/2 ML VIAL IV SCH (16:00)
[2018-01-06] MEDS: 0.9 % SODIUM CHLORIDE 10 ML SYRINGE IV PRN (16:15)
[2018-01-06 17:59] LABS: Appearance,Urine CLEAR; Bacteria,Urine 0 /hpf (0); Bilirubin,Urine NEG (NEG); Color,Urine YELLOW; Glucose,Urine (UA) NEGATIVE (NEG); Leukocyte Esterase,Urine 75 /uL (NEG); Protein,Urine NEG (NEG); Specific Gravity,Urine 1.013 (1.000-1.035); Urine Blood NEG mg/dL (<0.03); Urine Hyaline Cast 1 /lpf (0-2); Urine RBC 0 /hpf (0-1); Urine Squamous Epithelial Cell 2 /hpf (0-4); Urine Transitional Epi Cells < 1 /hpf (0-2); Urine WBC 13 /hpf (0-4); Urobilinogen,Urine NEG (NEG)
--- NOTE | 2018-01-06 19:09 | Internal Med Progress Note ---
Medical - PN: Subj Patient information: Note initiated : 01/06/18 at 7:09 pm Service Date, if different from initiated Date: [] Patient: Caroline Bellamy a 77 y/o F admitted on 12/23/17 for Ileostomy Closure and Colorectal Anastomosis. Chief Complaint: [] Interval history: December 23-Ms. Adiel Cardoso is a 77 year old F with a complex history with hospitalization May 2017 with diverticulitis perforation/peritonitis and prolonged hospital stay. 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 Hospitalization course was complicated by respiratory failure requiring mechanical ventilation and intra-abdominal infection with Pseudomonas. She underwent rehabilitation/TPN and prolonged hospitalization and was gradually recovering. She she now underwent expiratory laparotomy with extensive epidural lysis and small bowel resection. Postoperatively patient was unable to be extubated. Subsequently hospitalist service was consulted and patient was brought into the ICU on mechanical ventilation. patient currently on propofol/fentanyl. No family members available. systolics around 100. Patient has a line. Foleys catheter draining clear urine December 24-patient on mechanical ventilation. Map at 65 on 5 mics Levophed. Improving urine output. On light sedation. Weaning ventilator down to FiO2 35% , ABG 7.47/31/147. chest imaging revealed moderate left and small to moderat bibasilar infiltrate/effusion worsening since previous day. on Zosyn/Flagyl. Continue propofol/fentanyl for sedation. Start sedation holiday in a.m. for possible extubation. Continue weaning vasopressors. December 25- [place] [id number]. Off vasopressors, T MAX 100, no chills. No anxiety, responding to verbal commands, on SBT/sedation holiday, Interval chest iamging shows atelectasis and pl effusion. alert. stable renal function. Diminishing urine output. A line and central line no localized bleeding or redness. No telemetry events. Possible extubation today.ABG 7.35/38/96 on 35% FiO2 and PEEP December 26-Successfully extubated yesterday morning. Remained stable overnight. The morning wanting to try to eat or drink something. WBC decreased from 23K to 19K. However, late this morning, developed leakage of bowel contents through part of her abdominal incision. Taken back to the operating room for exploratory laparotomy. Will likely require mechanical ventilation postoperatively. December 27-patient successfully underwent repair of small leak in the distal ileum yesterday. Remained intubated overnight. This morning during sedation vacation and spontaneous breathing trial, patient was saturating well on 35% room air, had good minute ventilation during the breathing trial. She is successfully extubated. We'll later, respirations became labored. She was receiving significant volumes of IV fluid with maintenance as well as supplements being infused. Responded well to low-dose furosemide with improvement in respiratory status. December 28-overnight, had recurrent respiratory distress, tachypnea, labored respirations with rales and wheezes. Responded to further furosemide about 1 AM. Had recurrent respiratory distress about 5:30 this morning. Respirations were labored, while on only 2 L nasal cannula, saturations are dropped from high 90s to low 90s. She had wheezes as well as rales on exam. Received 10 mg of IV furosemide with some urine output and mild improvement, however required BiPAP therapy. Receive further 20 mg of furosemide with brisk diuresis. Remains on BiPAP for respiratory support. Chest x-ray with worsening interstitial infiltrates. Exam also with significant jugular venous distention consistent with volume overload. Has been receiving albumin. December 29-patient continues on BiPAP. She is off for a while this morning, became dyspneic. Improved approximately 1-2 hours after morning furosemide dose. She tends to have more respiratory distress as the furosemide has worn off. Has been receiving furosemide every 8 hours with good diuresis. Renal functions remain stable. At one point was complaining to family that she did not want to keep going with therapy, though seems to improved later in the morning. December 30-on BiPAP most of the night. Urine output responding to 20 mg of Lasix every 6 hours, urine output tails off towards the end. Receiving albumin and Lasix scheduled. Overall respiratory status clinically improved. Changed over to high flow nasal cannula this morning which she is tolerating. She complains of feeling tired, doesn't think she is any better. december 31 Pt seen and examined, no acute overnight events. Patient's chest x-ray shows worsening infiltrate versus ARDS versus pneumonia. Patient is on Zosyn as well as Flagyl. Start on vancomycin IV. She has completed her albumin and Lasix dosing according to the nurse. X-ray chest to rule is worsened. Patient is on 35% FiO2 by high flow nasal cannula. She seems to be tolerating it well. Her oxygen level is maintained with this. The patient definitely is tachypneic. She still complains about significant abdominal pain. [id number] ultrasound done IVC reviewed, the patient has complete collapse of the IVC with inspiration. This indicates that the patient does not seem to be in fluid overload other is volume depleted after aggressive diuresis. For now we will just hold off on Lasix and monitor. january 01 Patient seen and examined, no acute overnight events. She did use BiPAP for a while and then went back to her high flow nasal cannula. Chest x-ray shows persistent infiltrates. Clinically she is not volume overloaded. Oxygen requirements are trending down. She does note that she is very tired and wanted to give up overnight but after talking with the family she decided to continue. I do not believe that the patient is end-stage at this point in time, and she has a chance of recovery. Hold off on diuresis for now. Start on Cymbalta 30 mg once a day, they should help her with some anxiety depression as well as chronic aches and pains. Plan of care reviewed with the patient as well as the family. Use BiPAP as much as tolerated. january 02 Pt seen examined, no acute overnight issues, tolerating bipap intermittently had a better night pain is also better she is in better spirits today. family by the bed side She had one episode of shortness of breath yesterday, which improved with duonebs. Her IVC also showed more distention than the previous day, although still collapsing completely. Will keep the patient on low dose of lasix 20mg dailiy to keep her lungs as dry as possible She is oxygenating well, will wean off the hi moon nasal canula today if she is able to. january 03 Pt seen examined, overnight was confused after use of xanasx, this am drowsy, as she had received dilaudid but overall she is stable no complaints when woken up on bipap for now she was sob when she was weaned off the hiflo nasal canula continue same. january 04 pt seen examined, no acute overnight events, pain well controlled, CXR yesterday showed worsening infiltrates, caspofungin started in light of worsening infiltrates yesterday and tracheal aspirate growing anil. Pt off hiflo nasal canula today remains on iv diuresis overall stable 01/05- patient doing well. No overnight events. Diuresing well. Able to get out of bed to chair. Slightly short of breath but on room air. Much improved lymphedema. Tolerating diet advancement per surgery. On supplemental TPN currently being weaned. No overnight fever chills or concerns per staff. Stable hemodynamics and labs.hemoglobin 8.2 01/06-ppatient doing better. Transfer to medical floor. On oral diet per surgery. TPN currently being weaned. No overnight fever chills nausea vomiting. Anticipate surgical closure of the abdominal incision over the next few days. Managed by surgery. No further recommendations from hospitalist service. Lower Lasix dose to once daily - Constitutional Vitals: Vital Signs Temp Pulse Resp BP Pulse Ox 98.3 F 85 20 136/70 95 01/06/18 16:00 01/06/18 16:00 01/06/18 16:00 01/06/18 16:00 01/06/18 16:00 Period Temp Pulse Resp BP Sys/[place] Pulse Ox Last 24 Hr 98.3 F-99.3 F 85-97 16-29 112-136/65-76 89-97 Intake and Output 01/06/18 01/06/18 01/06/18 05:59 13:59 21:59 Intake Total 1000 / 1000 1655 / 1655 629 / 629 Output Total 1470 / 1470 595 / 595 490 / 490 Balance -470 / -470 1060 / 1060 139 / 139 Intake & Output: Intake & Output 01/06/18 01/06/18 01/06/18 05:59 13:59 21:59 Intake Total 1000 / 1000 1655 / 1655 629 / 629 Output Total 1470 / 1470 595 / 595 490 / 490 Balance -470 / -470 1060 / 1060 139 / 139 Intake: IV 900 / 900 1555 / 1555 529 / 529 OFIRMEV 1,000 mg In 100 ml @ 100 / 100 200 mls/hr IV Q6HP PRN Rx#: [id number] Cancidas 50 mg In Sodium 250 / 250 250 / 250 Chloride 0.9% 250 ml @ 250 mls/ hr IV Q24H [facility] Rx#:[id number] Intralipid 20% 250 ml In Premix 250 / 250 1 Bag @ 25 mls/hr IV TuThSa@ 1600 [facility] Rx#:[id number] Magnesium Sulfate 8.12 Meq 429 / 429 Potassium Phosphate 10 Meq Infuvite Adult 10 ml Selenium 60 Mcg Potassium Chloride 50 Meq Sodium Phosphate 15 Mmol Sodium Chloride 60 Meq In Clinimix 5%-20% Solution 1,000 ml @ 65 mls/hr IV Q17H [facility] Rx#: [id number] Zosyn 3.375 gm In Dextrose 5% 50 / 50 100 / 100 in Water 50 ml @ 100 mls/hr IV Q6H [facility] Rx#:[id number] Vancomycin 1,000 mg In Sodium 250 / 250 Chloride 0.9% 250 ml @ 250 mls/ hr IV Q24H [facility] Rx#:[id number] Oral 100 / 100 100 / 100 GI Tube Flush 100 / 100 Output: Drainage 20 / 20 RIDDHI A 10 / 10 RIDDHI B 10 / 10 Urine Catheter Amount 1350 / 1350 400 / 400 Void Amount 195 / 195 490 / 490 Stool 100 / 100 Other: Meal Breakfast Lunch Percent of Meal Consumed 25% 0% # Voids 1 General appearance: no acute distress Exam: alert oriented Foleys catheter discontinued Able to get out of bed to chair No telemetry events Medical - PN: Obj Da - Labs CBC & Chem 7: 01/06/18 03:50 01/06/18 03:50 Labs: Abnormal Lab Results 01/06/18 01/06/18 01/06/18 17:30 03:50 03:50 WBC 15.6 H RBC 3.15 L Hgb 7.9 L Hct 24.0 L MCV 76.0 L MCH 25.1 L RDW 15.4 H Plt Count 476 H Gran % 85.0 H Lymph % (Auto) 4.2 L Gran # 13.3 H Lymph # (Auto) 0.7 L Dent # (Auto) 1.1 H Chloride BUN 31 H Glucose 109 H GGT 96 H Ur Leukocyte Esterase 75 A Urine WBC 13 H 01/05/18 01/05/18 01/04/18 06:05 06:05 04:00 WBC 11.6 H RBC 3.24 L Hgb 8.2 L Hct 25.2 L MCV 77.7 L MCH 25.2 L RDW 16.1 H Plt Count 459 H Gran % 80.6 H Lymph % (Auto) 7.1 L Gran # 9.4 H Lymph # (Auto) 0.8 L Dent # (Auto) 1.0 H Chloride 95 L BUN 30 H Glucose 122 H 143 H GGT 94 H 89 H Ur Leukocyte Esterase Urine WBC 01/04/18 04:00 WBC RBC 3.11 L Hgb 7.8 L Hct 24.4 L MCV 78.3 L MCH 24.9 L RDW 15.7 H Plt Count Gran % 78.3 H Lymph % (Auto) 6.9 L Gran # Lymph # (Auto) 0.6 L Dent # (Auto) Chloride BUN Glucose GGT Ur Leukocyte Esterase Urine WBC Meds: Medications Albuterol/Ipratropium (Duoneb) 3 ml NEB Q6HRT KRISS Alprazolam (Xanax) 0.5 mg PO Q6HP PRN PRN Reason: Anxiety Artificial Tears (Artificial Tears Ophth Drops) 1 gtt OU QIDP PRN PRN Reason: Dry Eye(s) Dextrose (Dextrose 50%) 25 ml IV UD PRN PRN Reason: Hypoglycemia Diagnostic Test (Pha) (Accu-Chek) 1 each FS Q6 KRISS Last Admin: 01/06/18 17:15 Dose: 1 each Duloxetine HCl (Cymbalta) 30 mg PO DAILY KRISS Furosemide (Lasix) 20 mg IV BIDD [facility] Last Admin: 01/06/18 16:11 Dose: 20 mg Glucose Oxid/Lactoperoxid/Muramidas (Biotene) 1 each TOPICAL PRN PRN PRN Reason: Dry Mouth Heparin Sodium (Porcine) (Heparin Flush) 2 ml IV Q12 KRISS Hydromorphone HCl (Dilaudid) 1 mg IV Q2HP PRN PRN Reason: PAIN LEVEL > 6 Last Admin: 01/06/18 16:12 Dose: 1 mg Caspofungin 50 mg/ Sodium (Chloride) 250 mls @ 250 mls/hr IV Q24H KRISS Heparin Sodium/Sodium Chloride (Heparin/Ns) 500 mls @ 0 mls/hr IV .Q0M KRISS; KVO PRN Reason: Protocol Magnesium Sulfate 8.12 meq/Potassium Phosphate 10 meq/Multivitamins/Minerals 10 ml/Selenium 60 mcg/ Potassium Chloride 50 meq/ Sodium Phosphate 15 mmol/ Sodium Chloride 60 meq/ Amino Acids 1,060.7727 mls @ 65 mls/hr IV Q17H [facility] Stop: 01/07/18 08:30 Metronidazole (Flagyl) 500 mg in 100 mls @ 100 mls/hr IV Q6H [facility] Last Admin: 01/06/18 17:11 Dose: 100 mls/hr Acetaminophen (Ofirmev) 1,000 mg in 100 mls @ 200 mls/hr IV Q6HP PRN PRN Reason: Pain Piperacillin Sod/Tazobactam (Sod 3.375 gm/ Dextrose) 50 mls @ 100 mls/hr IV Q6H [facility] Last Admin: 01/06/18 16:13 Dose: 100 mls/hr Insulin Human Lispro (Humalog) 0 unit SQ Q6 KRISS PRN Reason: Protocol Last Admin: 01/06/18 17:16 Dose: Not Given Metoclopramide HCl (Reglan) 5 mg IV Q8H [facility] Last Admin: 01/06/18 17:11 Dose: 5 mg Ondansetron HCl (Zofran) 4 mg IV Q4HP PRN PRN Reason: Nausea And Vomiting Pantoprazole Sodium (Protonix) 40 mg IV BIDAC [facility] Last Admin: 01/06/18 16:15 Dose: 40 mg Promethazine HCl (Phenergan) 12.5 mg IV Q4HP PRN PRN Reason: Nausea And Vomiting Sodium Chloride (Saline Flush) 10 ml IV UD PRN PRN Reason: FLUSH Last Admin: 01/06/18 16:15 Dose: 10 ml Sodium Chloride (Saline Flush) 10 ml IV Q8 [facility] Medical - PN: A/P - Time Spent With Patient Total time spent is greater than 50% in coordination of care (as documented) at patient's floor/unit and/or counseling patient: 15 - 24 minutes (1) On mechanically assisted ventilation Status: Acute Assessment and plan: * status post exploratory laparotomy.ongoing management per surgery Hospitalist consult for postoperative respiratory failure and mechanical ventilation. s/p exubation, day 8 today * healthcare associated pneumonia-on Zosyn/DC vancomycin. Sputum culture Anil. On caspofungin * hypoxic respiratory failure-clinically improved. And off BiPAP. Currentlyon room air * sepsis-clinically resolved. White count Uptrending 15.6 * Anemia hemoglobin stable at 8.2 * Anxiety- on cymbalta * FEN-on TPN. Wean his diet advancement Plan * DC vancomycin * Pre-existing medical condition management as above * aggressive physical therapy * Follow CBC Current Visit: Yes Medical - PN: Qual - VTE Deep Vein Thrombosis/Pulmonary Embolism Present on Admission: No Procedures - Arterial Line Size (Gauge): 20
[2018-01-07] MEDS: IPRATROPIUM/ALBUTEROL 3 ML AMPUL.NEB NEB SCH ×4 (00:48→19:06)
[2018-01-07] MEDS ORDERED: [UNRECOGNIZED DRUG - REMARK] IV SCH (01:00)
[2018-01-07] MEDS: HYDROmorphone 2 MG/ML VIAL IV PRN ×6 (04:04→23:37)
[2018-01-07] MEDS: PIPERACILLIN SODIUM/TAZOBACTAM 3.375 GM in DEXTROSE 5% IN WATER 50 ML IV SCH ×4 (05:16→23:06)
[2018-01-07] MEDS: 0.9 % SODIUM CHLORIDE 10 ML SYRINGE IV SCH ×3 (05:58→20:40)
[2018-01-07] MEDS: metroNIDAZOLE 500 MG/100 ML BAG IV SCH ×4 (05:59→23:38)
[2018-01-07] MEDS: INSULIN LISPRO 1 UNIT/0.01 ML UNIT SQ SCH ×5 (06:08→23:42)
[2018-01-07] MEDS: PANTOPRAZOLE 40 MG VIAL IV SCH ×2 (08:03→15:51)
[2018-01-07] MEDS: FUROSEMIDE 20 MG/2 ML VIAL IV SCH (08:03)
[2018-01-07] MEDS: METOCLOPRAMIDE 10 MG/2 ML VIAL IV SCH ×3 (08:12→23:38)
[2018-01-07] MEDS: DULoxetine 30 MG CAPSULE PO SCH (08:18)
[2018-01-07 09:26] LABS: Appearance,Urine CLEAR; Bacteria,Urine 0 /hpf (0); Bilirubin,Urine NEG (NEG); Color,Urine YELLOW; Glucose,Urine (UA) NEGATIVE (NEG); Leukocyte Esterase,Urine 25 /uL (NEG); Mucus,Urine FEW /hpf (0); Protein,Urine NEG (NEG); Specific Gravity,Urine 1.016 (1.000-1.035); Urine Blood NEG mg/dL (<0.03); Urine Hyaline Cast 4 /lpf (0-2); Urine RBC < 1 /hpf (0-1); Urine Squamous Epithelial Cell 1 /hpf (0-4); Urine WBC < 1 /hpf (0-4); Urobilinogen,Urine NEG (NEG)
[2018-01-07] MEDS ORDERED: CASPOFUNGIN ACETATE 50 MG in 0.9 % SODIUM CHLORIDE 250 ML IV SCH (10:00)
--- NOTE | 2018-01-07 11:00 | Internal Med Progress Note ---
Medical - PN: Subj Patient information: Note initiated : 01/07/18 at 10:57 am Service Date, if different from initiated Date: [] Patient: Caroline Bellamy a 77 y/o F admitted on 12/23/17 for Ileostomy Closure and Colorectal Anastomosis. Chief Complaint: [] Interval history: December 23-Ms. Adiel Cardoso is a 77 year old F with a complex history with hospitalization May 2017 with diverticulitis perforation/peritonitis and prolonged hospital stay. 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 Hospitalization course was complicated by respiratory failure requiring mechanical ventilation and intra-abdominal infection with Pseudomonas. She underwent rehabilitation/TPN and prolonged hospitalization and was gradually recovering. She she now underwent expiratory laparotomy with extensive epidural lysis and small bowel resection. Postoperatively patient was unable to be extubated. Subsequently hospitalist service was consulted and patient was brought into the ICU on mechanical ventilation. patient currently on propofol/fentanyl. No family members available. systolics around 100. Patient has a line. Foleys catheter draining clear urine December 24-patient on mechanical ventilation. Map at 65 on 5 mics Levophed. Improving urine output. On light sedation. Weaning ventilator down to FiO2 35% , ABG 7.47/31/147. chest imaging revealed moderate left and small to moderat bibasilar infiltrate/effusion worsening since previous day. on Zosyn/Flagyl. Continue propofol/fentanyl for sedation. Start sedation holiday in a.m. for possible extubation. Continue weaning vasopressors. December 25- [place] [id number]. Off vasopressors, T MAX 100, no chills. No anxiety, responding to verbal commands, on SBT/sedation holiday, Interval chest iamging shows atelectasis and pl effusion. alert. stable renal function. Diminishing urine output. A line and central line no localized bleeding or redness. No telemetry events. Possible extubation today.ABG 7.35/38/96 on 35% FiO2 and PEEP December 26-Successfully extubated yesterday morning. Remained stable overnight. The morning wanting to try to eat or drink something. WBC decreased from 23K to 19K. However, late this morning, developed leakage of bowel contents through part of her abdominal incision. Taken back to the operating room for exploratory laparotomy. Will likely require mechanical ventilation postoperatively. December 27-patient successfully underwent repair of small leak in the distal ileum yesterday. Remained intubated overnight. This morning during sedation vacation and spontaneous breathing trial, patient was saturating well on 35% room air, had good minute ventilation during the breathing trial. She is successfully extubated. We'll later, respirations became labored. She was receiving significant volumes of IV fluid with maintenance as well as supplements being infused. Responded well to low-dose furosemide with improvement in respiratory status. December 28-overnight, had recurrent respiratory distress, tachypnea, labored respirations with rales and wheezes. Responded to further furosemide about 1 AM. Had recurrent respiratory distress about 5:30 this morning. Respirations were labored, while on only 2 L nasal cannula, saturations are dropped from high 90s to low 90s. She had wheezes as well as rales on exam. Received 10 mg of IV furosemide with some urine output and mild improvement, however required BiPAP therapy. Receive further 20 mg of furosemide with brisk diuresis. Remains on BiPAP for respiratory support. Chest x-ray with worsening interstitial infiltrates. Exam also with significant jugular venous distention consistent with volume overload. Has been receiving albumin. December 29-patient continues on BiPAP. She is off for a while this morning, became dyspneic. Improved approximately 1-2 hours after morning furosemide dose. She tends to have more respiratory distress as the furosemide has worn off. Has been receiving furosemide every 8 hours with good diuresis. Renal functions remain stable. At one point was complaining to family that she did not want to keep going with therapy, though seems to improved later in the morning. December 30-on BiPAP most of the night. Urine output responding to 20 mg of Lasix every 6 hours, urine output tails off towards the end. Receiving albumin and Lasix scheduled. Overall respiratory status clinically improved. Changed over to high flow nasal cannula this morning which she is tolerating. She complains of feeling tired, doesn't think she is any better. december 31 Pt seen and examined, no acute overnight events. Patient's chest x-ray shows worsening infiltrate versus ARDS versus pneumonia. Patient is on Zosyn as well as Flagyl. Start on vancomycin IV. She has completed her albumin and Lasix dosing according to the nurse. X-ray chest to rule is worsened. Patient is on 35% FiO2 by high flow nasal cannula. She seems to be tolerating it well. Her oxygen level is maintained with this. The patient definitely is tachypneic. She still complains about significant abdominal pain. [id number] ultrasound done IVC reviewed, the patient has complete collapse of the IVC with inspiration. This indicates that the patient does not seem to be in fluid overload other is volume depleted after aggressive diuresis. For now we will just hold off on Lasix and monitor. january 01 Patient seen and examined, no acute overnight events. She did use BiPAP for a while and then went back to her high flow nasal cannula. Chest x-ray shows persistent infiltrates. Clinically she is not volume overloaded. Oxygen requirements are trending down. She does note that she is very tired and wanted to give up overnight but after talking with the family she decided to continue. I do not believe that the patient is end-stage at this point in time, and she has a chance of recovery. Hold off on diuresis for now. Start on Cymbalta 30 mg once a day, they should help her with some anxiety depression as well as chronic aches and pains. Plan of care reviewed with the patient as well as the family. Use BiPAP as much as tolerated. january 02 Pt seen examined, no acute overnight issues, tolerating bipap intermittently had a better night pain is also better she is in better spirits today. family by the bed side She had one episode of shortness of breath yesterday, which improved with duonebs. Her IVC also showed more distention than the previous day, although still collapsing completely. Will keep the patient on low dose of lasix 20mg dailiy to keep her lungs as dry as possible She is oxygenating well, will wean off the hi moon nasal canula today if she is able to. january 03 Pt seen examined, overnight was confused after use of xanasx, this am drowsy, as she had received dilaudid but overall she is stable no complaints when woken up on bipap for now she was sob when she was weaned off the hiflo nasal canula continue same. january 04 pt seen examined, no acute overnight events, pain well controlled, CXR yesterday showed worsening infiltrates, caspofungin started in light of worsening infiltrates yesterday and tracheal aspirate growing anil. Pt off hiflo nasal canula today remains on iv diuresis overall stable 01/05- patient doing well. No overnight events. Diuresing well. Able to get out of bed to chair. Slightly short of breath but on room air. Much improved lymphedema. Tolerating diet advancement per surgery. On supplemental TPN currently being weaned. No overnight fever chills or concerns per staff. Stable hemodynamics and labs.hemoglobin 8.2 01/06-ppatient doing better. Transfer to medical floor. On oral diet per surgery. TPN currently being weaned. No overnight fever chills nausea vomiting. Anticipate surgical closure of the abdominal incision over the next few days. Managed by surgery. No further recommendations from hospitalist service. Lower Lasix dose to once daily 01/07- patient doing well. Ambulating with assistance. Tolerating diet advancement. white count down to 9.2 however hemoglobin at 6.7. No overnight events or concerns per staff. T-Max 99. Scheduled 2 units PRBC transfusion. stool guaiac negative. No source of occult bleed. Continue monitoring. Likely secondary to marrow suppression. - Constitutional Vitals: Vital Signs Temp Pulse Resp BP Pulse Ox 97.9 F 84 24 H 102/56 94 01/07/18 08:00 01/07/18 08:00 01/07/18 08:00 01/07/18 08:00 01/07/18 08:00 Period Temp Pulse Resp BP Sys/[place] Pulse Ox Last 24 Hr 97.9 F-99.0 F 80-91 16-29 98-136/42-70 91-97 Intake and Output 01/06/18 01/07/18 01/07/18 21:59 05:59 13:59 Intake Total 1079 / 1079 300 / 300 Output Total 1265 / 1265 527 / 527 450 / 450 Balance -186 / -186 -227 / -227 -450 / -450 Weight 144 lb Intake & Output: Intake & Output 01/06/18 01/07/18 01/07/18 21:59 05:59 13:59 Intake Total 1079 / 1079 300 / 300 Output Total 1265 / 1265 527 / 527 450 / 450 Balance -186 / -186 -227 / -227 -450 / -450 Weight 144 lb Intake: IV 679 / 679 200 / 200 OFIRMEV 1,000 mg In 100 ml @ 100 / 100 200 mls/hr IV Q6HP PRN Rx#: [id number] Magnesium Sulfate 8.12 Meq 429 / 429 Potassium Phosphate 10 Meq Infuvite Adult 10 ml Selenium 60 Mcg Potassium Chloride 50 Meq Sodium Phosphate 15 Mmol Sodium Chloride 60 Meq In Clinimix 5%-20% Solution 1,000 ml @ 65 mls/hr IV Q17H [facility] Rx#: [id number] Zosyn 3.375 gm In Dextrose 5% 50 / 50 100 / 100 in Water 50 ml @ 100 mls/hr IV Q6H [facility] Rx#:[id number] Oral 400 / 400 100 / 100 Output: Urine Catheter Amount 400 / 400 Void Amount 1115 / 1115 125 / 125 275 / 275 # of times incontinent of urine 2 / 2 Stool 150 / 150 175 / 175 Other: Meal Dinner Percent of Meal Consumed 50% Feeding Ability Independent Stool Size Moderate Stool Color Green Brown Green Black Stool Consistency Watery Liquid # Voids 1 General appearance: no acute distress Exam: responding to verbal commands lymphedema resolved Nonlabored breathing Abdomen wound covered in dressing Medical - PN: Obj Da - Labs CBC & Chem 7: 01/08/18 04:30 01/08/18 04:30 Labs: Abnormal Lab Results 01/06/18 01/06/18 01/06/18 17:30 05:24 03:50 WBC RBC Hgb Hct MCV MCH RDW Plt Count Gran % Lymph % (Auto) Gran # Lymph # (Auto) [place] # (Auto) Chloride BUN 31 H Glucose 109 H GGT 96 H Ur Leukocyte Esterase 75 A 25 A Urine WBC 13 H Hyaline Casts 4 H 01/06/18 01/05/18 01/05/18 03:50 06:05 06:05 WBC 15.6 H 11.6 H RBC 3.15 L 3.24 L Hgb 7.9 L 8.2 L Hct 24.0 L 25.2 L MCV 76.0 L 77.7 L MCH 25.1 L 25.2 L RDW 15.4 H 16.1 H Plt Count 476 H 459 H Gran % 85.0 H 80.6 H Lymph % (Auto) 4.2 L 7.1 L Gran # 13.3 H 9.4 H Lymph # (Auto) 0.7 L 0.8 L [place] # (Auto) 1.1 H 1.0 H Chloride 95 L BUN Glucose 122 H GGT 94 H Ur Leukocyte Esterase Urine WBC Hyaline Casts Meds: Medications Albuterol/Ipratropium (Duoneb) 3 ml NEB Q6HRT [facility] Last Admin: 01/07/18 07:25 Dose: 3 ml Alprazolam (Xanax) 0.5 mg PO Q6HP PRN PRN Reason: Anxiety Last Admin: 01/06/18 21:46 Dose: 0.5 mg Artificial Tears (Artificial Tears Ophth Drops) 1 gtt OU QIDP PRN PRN Reason: Dry Eye(s) Dextrose (Dextrose 50%) 25 ml IV UD PRN PRN Reason: Hypoglycemia Diagnostic Test (Pha) (Accu-Chek) 1 each FS Q6 [facility]ISS Last Admin: 01/07/18 06:03 Dose: 1 each Duloxetine HCl (Cymbalta) 30 mg PO DAILY [facility] Last Admin: 01/07/18 08:18 Dose: 30 mg Furosemide (Lasix) 20 mg IV DAILY [facility] Stop: 01/10/18 09:01 Glucose Oxid/Lactoperoxid/Muramidas (Biotene) 1 each TOPICAL PRN PRN PRN Reason: Dry Mouth Heparin Sodium (Porcine) (Heparin Flush) 2 ml IV Q12 [facility] Last Admin: 01/07/18 08:03 Dose: 2 ml Hydromorphone HCl (Dilaudid) 1 mg IV Q2HP PRN PRN Reason: PAIN LEVEL > 6 Last Admin: 01/07/18 08:25 Dose: 1 mg Caspofungin 50 mg/ Sodium (Chloride) 250 mls @ 250 mls/hr IV Q24H [facility] Last Admin: 01/07/18 10:56 Dose: 250 mls/hr Heparin Sodium/Sodium Chloride (Heparin/Ns) 500 mls @ 0 mls/hr IV .Q0M KRISS; KVO PRN Reason: Protocol Metronidazole (Flagyl) 500 mg in 100 mls @ 100 mls/hr IV Q6H [facility] Last Admin: 01/07/18 05:59 Dose: 100 mls/hr Acetaminophen (Ofirmev) 1,000 mg in 100 mls @ 200 mls/hr IV Q6HP PRN PRN Reason: Pain Piperacillin Sod/Tazobactam (Sod 3.375 gm/ Dextrose) 50 mls @ 100 mls/hr IV Q6H [facility] Last Infusion: 01/07/18 05:46 Dose: Infused Insulin Human Lispro (Humalog) 0 unit SQ Q6 [facility] PRN Reason: Protocol Last Admin: 01/07/18 06:08 Dose: 2 unit Metoclopramide HCl (Reglan) 5 mg IV Q8H [facility] Last Admin: 01/07/18 08:12 Dose: 5 mg Ondansetron HCl (Zofran) 4 mg IV Q4HP PRN PRN Reason: Nausea And Vomiting Pantoprazole Sodium (Protonix) 40 mg IV BIDAC [facility] Last Admin: 01/07/18 08:03 Dose: 40 mg Promethazine HCl (Phenergan) 12.5 mg IV Q4HP PRN PRN Reason: Nausea And Vomiting Sodium Chloride (Saline Flush) 10 ml IV UD PRN PRN Reason: FLUSH Last Admin: 01/06/18 16:15 Dose: 10 ml Sodium Chloride (Saline Flush) 10 ml IV Q8 [facility] Last Admin: 01/07/18 05:58 Dose: 10 ml Medical - PN: A/P - Time Spent With Patient Total time spent is greater than 50% in coordination of care (as documented) at patient's floor/unit and/or counseling patient: 25 - 35 minutes (1) On mechanically assisted ventilation Status: Acute Assessment and plan: * status post exploratory laparotomy. continue management per surgery. Hospitalist consult for postoperative respiratory failure and mechanical ventilation. s/p exubation, day 8 today * healthcare associated pneumonia-continue Zosyn for additional 48 hours. Sputum culture Anil. continue caspofungin for 48 hours * severe anemia likely secondary to marrow suppression. hemoglobin 6.7. Scheduled 2 units PRBC transfusion * hypoxic respiratory failure-resolved now on room air * sepsis-clinically resolved. however white count uptrending. * Anxiety- on cymbalta * FEN-on oral diet per surgery. Plan * aggressive physical therapy * 2 units PRBC transfusion * diet advancement per surgery * Pre-existing medical condition management meds Current Visit: Yes Medical - PN: Qual - VTE Deep Vein Thrombosis/Pulmonary Embolism Present on Admission: No Procedures - Arterial Line Size (Gauge): 20
[2018-01-07 11:53] LABS: Mean Cell Volume 77.2 fL (80.0-100.0); Mean Corpuscular HGB Conc 32.6 g/dL (31.0-36.0); Mean Corpuscular Hemoglobin 25.2 pg (26.0-34.0); Platelet Count 349 K/mcL (140-440); RBC 2.67 M/mcL (4.00-5.20)
[2018-01-07] MEDS ORDERED: 0.9 % SODIUM CHLORIDE 250 ML IV SCH (12:15)
[2018-01-07 12:36] LABS: Anisocytosis 1+ (NONE SEEN); Eosinophils % (Manual) 2 % (0-7); Hypochromasia 1+ (NONE SEEN); Lymphocytes % 10 % (15-49); Monocytes % (Manual) 7 % (1-12); Platelet Estimate NORMAL (NORMAL); RBC Morphology NORMAL (NORMAL); Segmented Neutrophils % 80 % (38-78)
[2018-01-07] MEDS ORDERED: FAT EMULSION 20% 250 ML in PREMIX 1 BAG IV SCH (16:00)
--- NOTE | 2018-01-07 18:01 | General Surgery Progress Note ---
Subjective Patient reports: feels better, pain is less, tolerating a regular diet, flatus, no bowel movement, afebrile Narrative: Note initiated : 01/07/18 at 6:01 pm Service Date, if different from initiated Date: [] Patient: Caroline Bellamy 77 y/o F admitted on 12/23/17 for Ileostomy Closure and Colorectal Anastomosis. Chief Complaint: [] Objective Temp Pulse Resp BP Pulse Ox 98.9 F 81 16 105/61 92 01/07/18 17:40 01/07/18 17:40 01/07/18 17:40 01/07/18 17:40 01/07/18 17:40 - Additional Data Intake & Output - Last 24 hours: Intake & Output 01/05/18 01/06/18 01/07/18 01/08/18 05:59 05:59 05:59 05:59 Intake Total 1200 / 1200 1650 / 1650 3034 / 3034 995 / 995 Output Total 3980 / 3980 3180 / 3180 2387 / 2387 1830 / 1830 Balance -2780 / -2780 -1530 / -1530 647 / 647 -835 / -835 Weight 146 lb 142 lb 3.2 oz 144 lb 144 lb - General physical appearance well developed, well nourished, moderate distress, cachectic, chronically ill - Eyes PERRL, normal ocular movement - ENT normal pinna, normal nares, normal mucosa, no hearing loss, decreased hearing - Neck no masses, no bruits, trachea midline, no lymphadectomy, no venous distension - Respiratory other (Scattered coarse rhonchi and wheezes) - Cardiovascular Cardiovascular exam: Present: RRR, +S1, +S2. Absent: JVD - Abdomen tender (Mild tenderness of incision; open wound looks good; good active bowel sounds) - Integumentary no rash, no growths, no abnormal pigmentation - Neurologic normal coordination, normal sensation - Psychiatric oriented to time, oriented to person, oriented to place, speech is normal, memory intact - Labs 01/12/18 10:59 01/12/18 10:59 Assessment and Plan (1) Ileostomy status Status: Acute Assessment and plan: STOMA IS WORKING FINE Current Visit: Yes (2) Protein-calorie malnutrition, moderate Status: Acute Assessment and plan: TPN to be tapered off Current Visit: No (3) Enterocutaneous fistula Status: Resolved Assessment and plan: No evidence of further leak at this time advance to diet as tolerated Current Visit: Yes (4) Volume overload Status: Resolved Assessment and plan: BUN is beginning to rise which may suggest intravenous volume contraction. Current Visit: Yes - Time Spent With Patient Total time spent is greater than 50% in coordination of care (as documented) at patient's floor/unit and/or counseling patient:
[2018-01-07] MEDS: ALPRAZolam 0.5 MG TABLET PO PRN (20:38)
[2018-01-08] MEDS: IPRATROPIUM/ALBUTEROL 3 ML AMPUL.NEB NEB SCH ×4 (00:38→18:54)
[2018-01-08] MEDS: HYDROmorphone 2 MG/ML VIAL IV PRN ×8 (04:44→23:38)
[2018-01-08] MEDS: PIPERACILLIN SODIUM/TAZOBACTAM 3.375 GM in DEXTROSE 5% IN WATER 50 ML IV SCH ×4 (04:46→23:38)
[2018-01-08] MEDS: metroNIDAZOLE 500 MG/100 ML BAG IV SCH ×3 (05:26→17:45)
[2018-01-08] MEDS: 0.9 % SODIUM CHLORIDE 10 ML SYRINGE IV SCH ×3 (05:28→21:02)
[2018-01-08] MEDS: INSULIN LISPRO 1 UNIT/0.01 ML UNIT SQ SCH ×2 (06:01→12:30)
[2018-01-08] MEDS: PANTOPRAZOLE 40 MG VIAL IV SCH ×2 (06:35→16:50)
[2018-01-08 07:02] LABS: Basophils # (Auto) 0 K/mcL (0.0-0.3); Basophils % (Auto) 0.2 % (0.0-2.0); Eosinophils # (Auto) 0.4 K/mcL (0.0-0.7); Eosinophils % (Auto) 4.7 % (0.0-7.0); Granulocytes % (Auto) 76.2 % (38.0-78.0); Lymphocytes # (Auto) 0.7 K/mcL (1.5-4.8); Mean Corpuscular HGB Conc 32.6 g/dL (31.0-36.0); Mean Corpuscular Hemoglobin 26.4 pg (26.0-34.0); Monocytes # (Auto) 0.9 K/mcL (0.1-0.9); Monocytes % (Auto) 10.9 % (1.0-12.0); Platelet Count 348 K/mcL (140-440); RBC 3.85 M/mcL (4.00-5.20)
[2018-01-08 07:40] LABS: ALT/SGPT 6 U/l (0-40); Albumin 3.8 gm/dL (3.2-5.2); Albumin/Globulin Ratio 1.5 (1.0-2.3); Alkaline Phosphatase 71 U/L (39-117); Bilirubin,Direct < 0.2 mg/dL (0.0-0.3); Blood Urea Nitrogen 21 mg/dl (8-23); Gamma Glutamyl Transpeptidase 86 U/L (5-36); Uric Acid 4.8 mg/dL (2.5-8.0)
[2018-01-08] MEDS: FUROSEMIDE 20 MG/2 ML VIAL IV SCH (09:32)
[2018-01-08] MEDS: METOCLOPRAMIDE 10 MG/2 ML VIAL IV SCH ×2 (09:32→16:52)
[2018-01-08] MEDS: DULoxetine 30 MG CAPSULE PO SCH (09:34)
--- NOTE | 2018-01-08 09:48 | Internal Med Progress Note ---
Medical - PN: Subj Patient information: Note initiated : 01/08/18 at 9:45 am Service Date, if different from initiated Date: [] Patient: Caroline Bellamy a 77 y/o F admitted on 12/23/17 for Ileostomy Closure and Colorectal Anastomosis. Chief Complaint: [] Interval history: December 23-Ms. Adiel Cardoso is a 77 year old F with a complex history with hospitalization May 2017 with diverticulitis perforation/peritonitis and prolonged hospital stay. 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 Hospitalization course was complicated by respiratory failure requiring mechanical ventilation and intra-abdominal infection with Pseudomonas. She underwent rehabilitation/TPN and prolonged hospitalization and was gradually recovering. She she now underwent expiratory laparotomy with extensive epidural lysis and small bowel resection. Postoperatively patient was unable to be extubated. Subsequently hospitalist service was consulted and patient was brought into the ICU on mechanical ventilation. patient currently on propofol/fentanyl. No family members available. systolics around 100. Patient has a line. Foleys catheter draining clear urine December 24-patient on mechanical ventilation. Map at 65 on 5 mics Levophed. Improving urine output. On light sedation. Weaning ventilator down to FiO2 35% , ABG 7.47/31/147. chest imaging revealed moderate left and small to moderat bibasilar infiltrate/effusion worsening since previous day. on Zosyn/Flagyl. Continue propofol/fentanyl for sedation. Start sedation holiday in a.m. for possible extubation. Continue weaning vasopressors. December 25- [place] [address]. Off vasopressors, T MAX 100, no chills. No anxiety, responding to verbal commands, on SBT/sedation holiday, Interval chest iamging shows atelectasis and pl effusion. alert. stable renal function. Diminishing urine output. A line and central line no localized bleeding or redness. No telemetry events. Possible extubation today.ABG 7.35/38/96 on 35% FiO2 and PEEP December 26-Successfully extubated yesterday morning. Remained stable overnight. The morning wanting to try to eat or drink something. WBC decreased from 23K to 19K. However, late this morning, developed leakage of bowel contents through part of her abdominal incision. Taken back to the operating room for exploratory laparotomy. Will likely require mechanical ventilation postoperatively. December 27-patient successfully underwent repair of small leak in the distal ileum yesterday. Remained intubated overnight. This morning during sedation vacation and spontaneous breathing trial, patient was saturating well on 35% room air, had good minute ventilation during the breathing trial. She is successfully extubated. We'll later, respirations became labored. She was receiving significant volumes of IV fluid with maintenance as well as supplements being infused. Responded well to low-dose furosemide with improvement in respiratory status. December 28-overnight, had recurrent respiratory distress, tachypnea, labored respirations with rales and wheezes. Responded to further furosemide about 1 AM. Had recurrent respiratory distress about 5:30 this morning. Respirations were labored, while on only 2 L nasal cannula, saturations are dropped from high 90s to low 90s. She had wheezes as well as rales on exam. Received 10 mg of IV furosemide with some urine output and mild improvement, however required BiPAP therapy. Receive further 20 mg of furosemide with brisk diuresis. Remains on BiPAP for respiratory support. Chest x-ray with worsening interstitial infiltrates. Exam also with significant jugular venous distention consistent with volume overload. Has been receiving albumin. December 29-patient continues on BiPAP. She is off for a while this morning, became dyspneic. Improved approximately 1-2 hours after morning furosemide dose. She tends to have more respiratory distress as the furosemide has worn off. Has been receiving furosemide every 8 hours with good diuresis. Renal functions remain stable. At one point was complaining to family that she did not want to keep going with therapy, though seems to improved later in the morning. December 30-on BiPAP most of the night. Urine output responding to 20 mg of Lasix every 6 hours, urine output tails off towards the end. Receiving albumin and Lasix scheduled. Overall respiratory status clinically improved. Changed over to high flow nasal cannula this morning which she is tolerating. She complains of feeling tired, doesn't think she is any better. december 31 Pt seen and examined, no acute overnight events. Patient's chest x-ray shows worsening infiltrate versus ARDS versus pneumonia. Patient is on Zosyn as well as Flagyl. Start on vancomycin IV. She has completed her albumin and Lasix dosing according to the nurse. X-ray chest to rule is worsened. Patient is on 35% FiO2 by high flow nasal cannula. She seems to be tolerating it well. Her oxygen level is maintained with this. The patient definitely is tachypneic. She still complains about significant abdominal pain. [id number] ultrasound done IVC reviewed, the patient has complete collapse of the IVC with inspiration. This indicates that the patient does not seem to be in fluid overload other is volume depleted after aggressive diuresis. For now we will just hold off on Lasix and monitor. january 01 Patient seen and examined, no acute overnight events. She did use BiPAP for a while and then went back to her high flow nasal cannula. Chest x-ray shows persistent infiltrates. Clinically she is not volume overloaded. Oxygen requirements are trending down. She does note that she is very tired and wanted to give up overnight but after talking with the family she decided to continue. I do not believe that the patient is end-stage at this point in time, and she has a chance of recovery. Hold off on diuresis for now. Start on Cymbalta 30 mg once a day, they should help her with some anxiety depression as well as chronic aches and pains. Plan of care reviewed with the patient as well as the family. Use BiPAP as much as tolerated. january 02 Pt seen examined, no acute overnight issues, tolerating bipap intermittently had a better night pain is also better she is in better spirits today. family by the bed side She had one episode of shortness of breath yesterday, which improved with duonebs. Her IVC also showed more distention than the previous day, although still collapsing completely. Will keep the patient on low dose of lasix 20mg dailiy to keep her lungs as dry as possible She is oxygenating well, will wean off the hi moon nasal canula today if she is able to. january 03 Pt seen examined, overnight was confused after use of xanasx, this am drowsy, as she had received dilaudid but overall she is stable no complaints when woken up on bipap for now she was sob when she was weaned off the hiflo nasal canula continue same. january 04 pt seen examined, no acute overnight events, pain well controlled, CXR yesterday showed worsening infiltrates, caspofungin started in light of worsening infiltrates yesterday and tracheal aspirate growing anil. Pt off hiflo nasal canula today remains on iv diuresis overall stable 01/05- patient doing well. No overnight events. Diuresing well. Able to get out of bed to chair. Slightly short of breath but on room air. Much improved lymphedema. Tolerating diet advancement per surgery. On supplemental TPN currently being weaned. No overnight fever chills or concerns per staff. Stable hemodynamics and labs.hemoglobin 8.2 01/06-ppatient doing better. Transfer to medical floor. On oral diet per surgery. TPN currently being weaned. No overnight fever chills nausea vomiting. Anticipate surgical closure of the abdominal incision over the next few days. Managed by surgery. No further recommendations from hospitalist service. Lower Lasix dose to once daily 01/07- patient doing well. Ambulating with assistance. Tolerating diet advancement. white count down to 9.2 however hemoglobin at 6.7. No overnight events or concerns per staff. T-Max 99. Scheduled 2 units PRBC transfusion. stool guaiac negative. No source of occult bleed. Continue monitoring. Likely secondary to marrow suppression. 01/08-patient doing remarkably better. Hemoglobin 10.2. White count down to 8.4. On room air. Ambulating and able to transfer from bed to chair with minimal assistance. In good spirits. Discontinue vancomycin and caspofungin. on Zosyn/Flagyl per surgery. No overnight events or concerns per staff - Constitutional Vitals: Vital Signs Temp Pulse Resp BP Pulse Ox 98.0 F 83 20 134/74 94 01/08/18 06:59 01/08/18 07:52 01/08/18 07:52 01/08/18 06:59 01/08/18 07:52 Period Temp Pulse Resp BP Sys/[place] Pulse Ox Last 24 Hr 97.6 F-99.3 F 80-92 16-24 99-135/52-79 92-95 Intake and Output 01/07/18 01/08/18 01/08/18 21:59 05:59 13:59 Intake Total 868 / 868 400 / 400 250 / 250 Output Total 1080 / 1080 178 / 178 250 / 250 Balance -212 / -212 222 / 222 0 / 0 Weight 143 lb 8 oz Intake & Output: Intake & Output 01/07/18 01/08/18 01/08/18 21:59 05:59 13:59 Intake Total 868 / 868 400 / 400 250 / 250 Output Total 1080 / 1080 178 / 178 250 / 250 Balance -212 / -212 222 / 222 0 / 0 Weight 143 lb 8 oz Intake: IV 150 / 150 200 / 200 100 / 100 Zosyn 3.375 gm In Dextrose 5% 50 / 50 100 / 100 in Water 50 ml @ 100 mls/hr IV Q6H [facility] Rx#:[id number] Oral 200 / 200 150 / 150 Blood Product 718 / 718 Output: Drainage RIDDHI A 2 / 2 RIDDHI B Void Amount 400 / 400 175 / 175 125 / 125 Stool 675 / 675 125 / 125 Other: Meal Yogurt Breakfast Percent of Meal Consumed 100% 15% Feeding Ability Independent Assist with Tray Set Up Stool Size Moderate Stool Color Green Yellow Black Green Stool Consistency Watery Watery General appearance: no acute distress Exam: Alert and oriented nonlabored breathing Nondistended abdomen No anxiety no lymphedema Medical - PN: Obj Da - Labs CBC & Chem 7: 01/08/18 04:30 01/08/18 04:30 Labs: Abnormal Lab Results 01/08/18 01/08/18 01/07/18 04:30 04:30 11:13 WBC RBC 3.85 L 2.67 L Hgb 10.2 L 6.7 L* Hct 31.2 L 20.6 L* MCV 77.2 L MCH 25.2 L RDW 17.0 H 16.0 H Plt Count Gran % Lymph % (Auto) 8.0 L Gran # Lymph # (Auto) 0.7 L [place] # (Auto) Seg Neutrophils % 80 H Lymphocytes % 10 L Hypochromasia 1+ A Anisocytosis 1+ A Microcytosis 1+ A BUN Glucose GGT 86 H Ur Leukocyte Esterase Urine WBC Hyaline Casts 01/06/18 01/06/18 01/06/18 17:30 05:24 03:50 WBC RBC Hgb Hct MCV MCH RDW Plt Count Gran % Lymph % (Auto) Gran # Lymph # (Auto) [place] # (Auto) Seg Neutrophils % Lymphocytes % Hypochromasia Anisocytosis Microcytosis BUN 31 H Glucose 109 H GGT 96 H Ur Leukocyte Esterase 75 A 25 A Urine WBC 13 H Hyaline Casts 4 H 01/06/18 03:50 WBC 15.6 H RBC 3.15 L Hgb 7.9 L Hct 24.0 L MCV 76.0 L MCH 25.1 L RDW 15.4 H Plt Count 476 H Gran % 85.0 H Lymph % (Auto) 4.2 L Gran # 13.3 H Lymph # (Auto) 0.7 L [place] # (Auto) 1.1 H Seg Neutrophils % Lymphocytes % Hypochromasia Anisocytosis Microcytosis BUN Glucose GGT Ur Leukocyte Esterase Urine WBC Hyaline Casts Meds: Medications Albuterol/Ipratropium (Duoneb) 3 ml NEB Q6HRT [facility] Last Admin: 01/08/18 07:50 Dose: 3 ml Alprazolam (Xanax) 0.5 mg PO Q6HP PRN PRN Reason: Anxiety Last Admin: 01/07/18 20:38 Dose: 0.5 mg Artificial Tears (Artificial Tears Ophth Drops) 1 gtt OU QIDP PRN PRN Reason: Dry Eye(s) Dextrose (Dextrose 50%) 25 ml IV UD PRN PRN Reason: Hypoglycemia Diagnostic Test (Pha) (Accu-Chek) 1 each FS Q6 [facility] Last Admin: 01/08/18 05:53 Dose: 1 each Duloxetine HCl (Cymbalta) 30 mg PO DAILY [facility] Last Admin: 01/08/18 09:34 Dose: 30 mg Furosemide (Lasix) 20 mg IV DAILY [facility] Stop: 01/10/18 09:01 Last Admin: 01/08/18 09:32 Dose: 20 mg Glucose Oxid/Lactoperoxid/Muramidas (Biotene) 1 each TOPICAL PRN PRN PRN Reason: Dry Mouth Heparin Sodium (Porcine) (Heparin Flush) 2 ml IV Q12 [facility] Last Admin: 01/08/18 09:34 Dose: 2 ml Hydromorphone HCl (Dilaudid) 1 mg IV Q2HP PRN PRN Reason: PAIN LEVEL > 6 Last Admin: 01/08/18 09:33 Dose: 1 mg Heparin Sodium/Sodium Chloride (Heparin/Ns) 500 mls @ 0 mls/hr IV .Q0M KRISS; KVO PRN Reason: Protocol Metronidazole (Flagyl) 500 mg in 100 mls @ 100 mls/hr IV Q6H [facility] Last Infusion: 01/08/18 06:30 Dose: Infused Acetaminophen (Ofirmev) 1,000 mg in 100 mls @ 200 mls/hr IV Q6HP PRN PRN Reason: Pain Piperacillin Sod/Tazobactam (Sod 3.375 gm/ Dextrose) 50 mls @ 100 mls/hr IV Q6H [facility] Last Infusion: 01/08/18 05:16 Dose: Infused Insulin Human Lispro (Humalog) 0 unit SQ Q6 [facility] PRN Reason: Protocol Last Admin: 01/08/18 06:01 Dose: Not Given Metoclopramide HCl (Reglan) 5 mg IV Q8H [facility] Last Admin: 01/08/18 09:32 Dose: 5 mg Ondansetron HCl (Zofran) 4 mg IV Q4HP PRN PRN Reason: Nausea And Vomiting Pantoprazole Sodium (Protonix) 40 mg IV BIDAC [facility] Last Admin: 01/08/18 06:35 Dose: 40 mg Promethazine HCl (Phenergan) 12.5 mg IV Q4HP PRN PRN Reason: Nausea And Vomiting Sodium Chloride (Saline Flush) 10 ml IV UD PRN PRN Reason: FLUSH Last Admin: 01/06/18 16:15 Dose: 10 ml Sodium Chloride (Saline Flush) 10 ml IV Q8 [facility] Last Admin: 01/08/18 05:28 Dose: 10 ml Medical - PN: A/P - Time Spent With Patient Total time spent is greater than 50% in coordination of care (as documented) at patient's floor/unit and/or counseling patient: 15 - 24 minutes (1) On mechanically assisted ventilation Status: Acute Assessment and plan: * status post exploratory laparotomy. continue management per surgery. Hospitalist consult for postoperative respiratory failure and mechanical ventilation. s/p exubation, day 8 today * Healthcare associated pneumonia-day 7/8 Zosyn. clinically resolved. caspofungin discontinued * Severe anemia likely secondary to marrow suppression. hemoglobin 10.2 posttransfusion. * hypoxic respiratory failure-thank you resolved. On room air * Sepsis-clinically resolved. white count down from 15.6-8.4 * Anxiety- stable on cymbalta * FEN-on oral diet advancementper surgery. Plan * continue PT OT * continue diet advancement per surgery * Pre-existing medical condition management meds * no further recommendations from hospitalist service Current Visit: Yes Medical - PN: Qual - VTE Deep Vein Thrombosis/Pulmonary Embolism Present on Admission: No Procedures - Arterial Line Size (Gauge): 20
--- NOTE | 2018-01-08 15:18 | General Surgery Progress Note ---
Subjective Patient reports: feels better, pain is less, voiding w/o difficulty, flatus, bowel movement, afebrile Narrative: Note initiated : 01/08/18 at 3:16 pm Service Date, if different from initiated Date: [] Patient: Caroline Bellamy 77 y/o F admitted on 12/23/17 for Ileostomy Closure and Colorectal Anastomosis. Chief Complaint: [Patient is doing better. She still has poor p.o. intake. She denies nausea but does admit to not having much of an appetite. She does not have significant abdominal pain. She is worried about having her abdominal wall closed but it is explained to her that this will be done with minimal sedation and should only take a few minutes. It probably will not be done until next week. Hopefully she will start taking in better by mouth and we can start considering discharge on Thursday or Thursday of next week.] Objective Temp Pulse Resp BP Pulse Ox 97.8 F 81 20 124/72 93 01/08/18 12:45 01/08/18 13:02 01/08/18 13:02 01/08/18 12:45 01/08/18 12:45 - Additional Data Intake & Output - Last 24 hours: Intake & Output 01/06/18 01/07/18 01/08/18 01/09/18 05:59 05:59 05:59 05:59 Intake Total 1650 / 1650 3034 / 3034 1888 / 1888 400 / 400 Output Total 3180 / 3180 2387 / 2387 2433 / 2433 750 / 750 Balance -1530 / -1530 647 / 647 -545 / -545 -350 / -350 Weight 142 lb 3.2 oz 144 lb 143 lb 8 oz - General physical appearance well developed, well nourished, no distress - Eyes PERRL, normal ocular movement - ENT normal pinna, normal nares, normal mucosa, no hearing loss, no congestion - Neck no masses, no bruits, trachea midline, no lymphadectomy, no venous distension - Respiratory other (Few coarse tubular breath sounds but no wheezes or rales) - Cardiovascular Cardiovascular exam: Present: normal rate and rhythm, RRR, +S1, +S2. Absent: JVD, tachycardia - Abdomen non tender, bowel sounds (present), surgical scars (none), wound (Midline incision is clean and is beginning to develop granulation; her stoma continues to function well; Damien-De [place] Cruz drain with minimal serous drainage), masses ( none) - Integumentary no rash, no growths, no abnormal pigmentation - Neurologic normal coordination, normal sensation - Psychiatric oriented to time, oriented to person, oriented to place, speech is normal, memory intact - Labs 01/08/18 04:30 01/08/18 04:30 Diabetes panel 01/08/18 Range/Units 04:30 Sodium 137 (133-145) mmol/L Potassium 3.5 (3.3-5.1) mmol/L Chloride 101 (96-108) mmol/L Carbon Dioxide 25 (22-30) mmol/L BUN 21 (8-23) mg/dl Creatinine 0.6 (0.6-1.1) mg/dl Glucose 88 (70-105) mg/dL Calcium 9.5 (8.6-10.4) mg/dl AST 12 (0-37) U/l ALT 6 (0-40) U/l Alkaline Phosphatase 71 (39-117) U/L Total Protein 6.3 (5.9-8.4) gm/dL Albumin 3.8 (3.2-5.2) gm/dL Triglycerides 60 (<150) mg/dl Calcium panel 01/08/18 Range/Units 04:30 Calcium 9.5 (8.6-10.4) mg/dl Phosphorus 3.1 (2.7-4.5) mg/dL Albumin 3.8 (3.2-5.2) gm/dL Pituitary panel 01/08/18 Range/Units 04:30 Sodium 137 (133-145) mmol/L Potassium 3.5 (3.3-5.1) mmol/L Chloride 101 (96-108) mmol/L Carbon Dioxide 25 (22-30) mmol/L BUN 21 (8-23) mg/dl Creatinine 0.6 (0.6-1.1) mg/dl Glucose 88 (70-105) mg/dL Calcium 9.5 (8.6-10.4) mg/dl Adrenal panel 01/08/18 Range/Units 04:30 Sodium 137 (133-145) mmol/L Potassium 3.5 (3.3-5.1) mmol/L Chloride 101 (96-108) mmol/L Carbon Dioxide 25 (22-30) mmol/L BUN 21 (8-23) mg/dl Creatinine 0.6 (0.6-1.1) mg/dl Glucose 88 (70-105) mg/dL Calcium 9.5 (8.6-10.4) mg/dl Total Bilirubin 0.6 (0.0-1.0) mg/dL AST 12 (0-37) U/l ALT 6 (0-40) U/l Alkaline Phosphatase 71 (39-117) U/L Total Protein 6.3 (5.9-8.4) gm/dL Albumin 3.8 (3.2-5.2) gm/dL Assessment and Plan (1) Ileostomy status Status: Acute Assessment and plan: STOMA IS WORKING FINE Current Visit: Yes (2) Protein-calorie malnutrition, moderate Status: Acute Assessment and plan: TPN to be tapered off Current Visit: No (3) Enterocutaneous fistula Status: Resolved Assessment and plan: No evidence of further leak at this time advance to diet as tolerated Current Visit: Yes (4) Volume overload Status: Resolved Assessment and plan: BUN is beginning to rise which may suggest intravenous volume contraction. Current Visit: Yes - Time Spent With Patient Total time spent is greater than 50% in coordination of care (as documented) at patient's floor/unit and/or counseling patient:
[2018-01-08] MEDS: ALPRAZolam 0.5 MG TABLET PO PRN (21:03)
[2018-01-09] MEDS: metroNIDAZOLE 500 MG/100 ML BAG IV SCH ×5 (00:15→23:58)
[2018-01-09] MEDS: IPRATROPIUM/ALBUTEROL 3 ML AMPUL.NEB NEB SCH ×4 (01:17→20:03)
[2018-01-09] MEDS: METOCLOPRAMIDE 10 MG/2 ML VIAL IV SCH ×3 (01:17→17:28)
[2018-01-09] MEDS: HYDROmorphone 2 MG/ML VIAL IV PRN ×7 (05:05→23:25)
[2018-01-09] MEDS: PIPERACILLIN SODIUM/TAZOBACTAM 3.375 GM in DEXTROSE 5% IN WATER 50 ML IV SCH ×4 (05:05→23:06)
[2018-01-09] MEDS: 0.9 % SODIUM CHLORIDE 10 ML SYRINGE IV SCH ×3 (05:07→23:06)
[2018-01-09 06:33] LABS: Basophils # (Auto) 0 K/mcL (0.0-0.3); Basophils % (Auto) 0.2 % (0.0-2.0); Eosinophils # (Auto) 0.4 K/mcL (0.0-0.7); Eosinophils % (Auto) 5.3 % (0.0-7.0); Granulocytes % (Auto) 74.6 % (38.0-78.0); Lymphocytes # (Auto) 0.7 K/mcL (1.5-4.8); Lymphocytes % (Auto) 9.4 % (15.5-49.0); Mean Corpuscular Hemoglobin 26.7 pg (26.0-34.0); Monocytes # (Auto) 0.8 K/mcL (0.1-0.9); Monocytes % (Auto) 10.5 % (1.0-12.0); Platelet Count 368 K/mcL (140-440); RBC 3.89 M/mcL (4.00-5.20); Red Cell Distribution Width 16.8 % (11.5-14.5)
[2018-01-09 07:01] LABS: ALT/SGPT 6 U/l (0-40); Albumin 3.7 gm/dL (3.2-5.2); Albumin/Globulin Ratio 1.4 (1.0-2.3); Alkaline Phosphatase 73 U/L (39-117); Bilirubin,Direct < 0.2 mg/dL (0.0-0.3); Blood Urea Nitrogen 17 mg/dl (8-23); Gamma Glutamyl Transpeptidase 78 U/L (5-36); Uric Acid 4.8 mg/dL (2.5-8.0)
[2018-01-09] MEDS: PANTOPRAZOLE 40 MG VIAL IV SCH ×2 (08:50→17:28)
[2018-01-09] MEDS: DULoxetine 30 MG CAPSULE PO SCH (08:51)
[2018-01-09] MEDS: FUROSEMIDE 20 MG/2 ML VIAL IV SCH (08:51)
[2018-01-09] MEDS ORDERED: POTASSIUM CHLORIDE 20 MEQ PACKET PO ONE (12:41)
--- NOTE | 2018-01-09 12:45 | Internal Med Progress Note ---
Medical - PN: Subj Patient information: Note initiated : 01/09/18 at 12:43 pm Service Date, if different from initiated Date: [] Patient: Caroline Bellamy a 77 y/o F admitted on 12/23/17 for Ileostomy Closure and Colorectal Anastomosis. Chief Complaint: [] Interval history: December 23-Ms. Adiel Cardoso is a 77 year old F with a complex history with hospitalization May 2017 with diverticulitis perforation/peritonitis and prolonged hospital stay. 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 Hospitalization course was complicated by respiratory failure requiring mechanical ventilation and intra-abdominal infection with Pseudomonas. She underwent rehabilitation/TPN and prolonged hospitalization and was gradually recovering. She she now underwent expiratory laparotomy with extensive epidural lysis and small bowel resection. Postoperatively patient was unable to be extubated. Subsequently hospitalist service was consulted and patient was brought into the ICU on mechanical ventilation. patient currently on propofol/fentanyl. No family members available. systolics around 100. Patient has a line. Foleys catheter draining clear urine December 24-patient on mechanical ventilation. Map at 65 on 5 mics Levophed. Improving urine output. On light sedation. Weaning ventilator down to FiO2 35% , ABG 7.47/31/147. chest imaging revealed moderate left and small to moderat bibasilar infiltrate/effusion worsening since previous day. on Zosyn/Flagyl. Continue propofol/fentanyl for sedation. Start sedation holiday in a.m. for possible extubation. Continue weaning vasopressors. December 25- [place] [address]. Off vasopressors, T MAX 100, no chills. No anxiety, responding to verbal commands, on SBT/sedation holiday, Interval chest iamging shows atelectasis and pl effusion. alert. stable renal function. Diminishing urine output. A line and central line no localized bleeding or redness. No telemetry events. Possible extubation today.ABG 7.35/38/96 on 35% FiO2 and PEEP December 26-Successfully extubated yesterday morning. Remained stable overnight. The morning wanting to try to eat or drink something. WBC decreased from 23K to 19K. However, late this morning, developed leakage of bowel contents through part of her abdominal incision. Taken back to the operating room for exploratory laparotomy. Will likely require mechanical ventilation postoperatively. December 27-patient successfully underwent repair of small leak in the distal ileum yesterday. Remained intubated overnight. This morning during sedation vacation and spontaneous breathing trial, patient was saturating well on 35% room air, had good minute ventilation during the breathing trial. She is successfully extubated. We'll later, respirations became labored. She was receiving significant volumes of IV fluid with maintenance as well as supplements being infused. Responded well to low-dose furosemide with improvement in respiratory status. December 28-overnight, had recurrent respiratory distress, tachypnea, labored respirations with rales and wheezes. Responded to further furosemide about 1 AM. Had recurrent respiratory distress about 5:30 this morning. Respirations were labored, while on only 2 L nasal cannula, saturations are dropped from high 90s to low 90s. She had wheezes as well as rales on exam. Received 10 mg of IV furosemide with some urine output and mild improvement, however required BiPAP therapy. Receive further 20 mg of furosemide with brisk diuresis. Remains on BiPAP for respiratory support. Chest x-ray with worsening interstitial infiltrates. Exam also with significant jugular venous distention consistent with volume overload. Has been receiving albumin. December 29-patient continues on BiPAP. She is off for a while this morning, became dyspneic. Improved approximately 1-2 hours after morning furosemide dose. She tends to have more respiratory distress as the furosemide has worn off. Has been receiving furosemide every 8 hours with good diuresis. Renal functions remain stable. At one point was complaining to family that she did not want to keep going with therapy, though seems to improved later in the morning. December 30-on BiPAP most of the night. Urine output responding to 20 mg of Lasix every 6 hours, urine output tails off towards the end. Receiving albumin and Lasix scheduled. Overall respiratory status clinically improved. Changed over to high flow nasal cannula this morning which she is tolerating. She complains of feeling tired, doesn't think she is any better. december 31 Pt seen and examined, no acute overnight events. Patient's chest x-ray shows worsening infiltrate versus ARDS versus pneumonia. Patient is on Zosyn as well as Flagyl. Start on vancomycin IV. She has completed her albumin and Lasix dosing according to the nurse. X-ray chest to rule is worsened. Patient is on 35% FiO2 by high flow nasal cannula. She seems to be tolerating it well. Her oxygen level is maintained with this. The patient definitely is tachypneic. She still complains about significant abdominal pain. [id number] ultrasound done IVC reviewed, the patient has complete collapse of the IVC with inspiration. This indicates that the patient does not seem to be in fluid overload other is volume depleted after aggressive diuresis. For now we will just hold off on Lasix and monitor. january 01 Patient seen and examined, no acute overnight events. She did use BiPAP for a while and then went back to her high flow nasal cannula. Chest x-ray shows persistent infiltrates. Clinically she is not volume overloaded. Oxygen requirements are trending down. She does note that she is very tired and wanted to give up overnight but after talking with the family she decided to continue. I do not believe that the patient is end-stage at this point in time, and she has a chance of recovery. Hold off on diuresis for now. Start on Cymbalta 30 mg once a day, they should help her with some anxiety depression as well as chronic aches and pains. Plan of care reviewed with the patient as well as the family. Use BiPAP as much as tolerated. january 02 Pt seen examined, no acute overnight issues, tolerating bipap intermittently had a better night pain is also better she is in better spirits today. family by the bed side She had one episode of shortness of breath yesterday, which improved with duonebs. Her IVC also showed more distention than the previous day, although still collapsing completely. Will keep the patient on low dose of lasix 20mg dailiy to keep her lungs as dry as possible She is oxygenating well, will wean off the hi moon nasal canula today if she is able to. january 03 Pt seen examined, overnight was confused after use of xanasx, this am drowsy, as she had received dilaudid but overall she is stable no complaints when woken up on bipap for now she was sob when she was weaned off the hiflo nasal canula continue same. january 04 pt seen examined, no acute overnight events, pain well controlled, CXR yesterday showed worsening infiltrates, caspofungin started in light of worsening infiltrates yesterday and tracheal aspirate growing anil. Pt off hiflo nasal canula today remains on iv diuresis overall stable 01/05- patient doing well. No overnight events. Diuresing well. Able to get out of bed to chair. Slightly short of breath but on room air. Much improved lymphedema. Tolerating diet advancement per surgery. On supplemental TPN currently being weaned. No overnight fever chills or concerns per staff. Stable hemodynamics and labs.hemoglobin 8.2 01/06-ppatient doing better. Transfer to medical floor. On oral diet per surgery. TPN currently being weaned. No overnight fever chills nausea vomiting. Anticipate surgical closure of the abdominal incision over the next few days. Managed by surgery. No further recommendations from hospitalist service. Lower Lasix dose to once daily 01/07- patient doing well. Ambulating with assistance. Tolerating diet advancement. white count down to 9.2 however hemoglobin at 6.7. No overnight events or concerns per staff. T-Max 99. Scheduled 2 units PRBC transfusion. stool guaiac negative. No source of occult bleed. Continue monitoring. Likely secondary to marrow suppression. 01/08-patient doing remarkably better. Hemoglobin 10.2. White count down to 8.4. On room air. Ambulating and able to transfer from bed to chair with minimal assistance. In good spirits. Discontinue vancomycin and caspofungin. on Zosyn/Flagyl per surgery. No overnight events or concerns per staff 01/09 Patient doing well, hemoglobin stable, white count normal, potassium 3.4 being replaced. Patient has no acute complaints or concerns. She is able to tolerate some food does not have much hungry today. Otherwise she remains on broad-spectrum antibiotics as per surgery. Pertinent ROS: Denies headache, dizziness Denies chest pain, palpitations Denies cough or shortness of breath Abdominal pain is stable, no nausea no vomiting.. - Constitutional Vitals: Vital Signs Temp Pulse Resp BP Pulse Ox 98.3 F 84 16 120/68 94 01/09/18 06:57 01/09/18 08:40 01/09/18 08:40 01/09/18 06:57 01/09/18 08:40 Period Temp Pulse Resp BP Sys/[place] Pulse Ox Last 24 Hr 97.8 F-98.5 F 78-93 16-22 117-128/52-75 91-94 Intake and Output 05/11/18 05/12/18 05/12/18 21:59 05:59 13:59 Intake Total 490 / 490 550 / 550 400 / 400 Output Total 510 / 510 200 / 200 800 / 800 Balance -20 / -20 350 / 350 -400 / -400 Weight 141 lb Intake & Output: Intake & Output 01/08/18 01/09/18 01/09/18 21:59 05:59 13:59 Intake Total 490 / 490 550 / 550 400 / 400 Output Total 510 / 510 200 / 200 800 / 800 Balance -20 / -20 350 / 350 -400 / -400 Weight 141 lb Intake: IV 150 / 150 250 / 250 200 / 200 Zosyn 3.375 gm In Dextrose 5% 50 / 50 150 / 150 100 / 100 in Water 50 ml @ 100 mls/hr IV Q6H [facility] Rx#:[id number] Oral 340 / 340 300 / 300 200 / 200 Output: Void Amount 450 / 450 150 / 150 750 / 750 Stool 60 / 60 50 / 50 50 / 50 Other: Meal Dinner Breakfast Percent of Meal Consumed 50% Refused Feeding Ability Independent Stool Size Small Small Stool Color Brown Brown Green Stool Consistency Liquid Loose # Voids 2 1 Exam: Constitutional; Afebrile, cooperative, alert, not in distress. Eyes- No icterus, , No periorbital swelling Ears- Ext ear normal, hearing normal to conversation. Neck- Midline trachea, supple Respiratory system: Air Entry equal on both sides, No crackles or wheezing, no rhonchi. CVS- Rate rhythm regular, S1,S2 heard, no gallop, no rub. [employer]- AOOx3, moving all extremities, no gross focal deficit noted. Medical - PN: Obj Da - Labs CBC & Chem 7: 01/09/18 04:40 01/09/18 04:40 Labs: Abnormal Lab Results 01/09/18 01/09/18 01/08/18 04:40 04:40 04:30 RBC 3.89 L Hgb 10.4 L Hct 31.5 L MCV MCH RDW 16.8 H Lymph % (Auto) 9.4 L Lymph # (Auto) 0.7 L Seg Neutrophils % Lymphocytes % Hypochromasia Anisocytosis Microcytosis GGT 78 H 86 H Ur Leukocyte Esterase Urine WBC Hyaline Casts 01/08/18 01/07/18 01/06/18 04:30 11:13 17:30 RBC 3.85 L 2.67 L Hgb 10.2 L 6.7 L* Hct 31.2 L 20.6 L* MCV 77.2 L MCH 25.2 L RDW 17.0 H 16.0 H Lymph % (Auto) 8.0 L Lymph # (Auto) 0.7 L Seg Neutrophils % 80 H Lymphocytes % 10 L Hypochromasia 1+ A Anisocytosis 1+ A Microcytosis 1+ A GGT Ur Leukocyte Esterase 75 A Urine WBC 13 H Hyaline Casts 01/06/18 05:24 RBC Hgb Hct MCV MCH RDW Lymph % (Auto) Lymph # (Auto) Seg Neutrophils % Lymphocytes % Hypochromasia Anisocytosis Microcytosis GGT Ur Leukocyte Esterase 25 A Urine WBC Hyaline Casts 4 H Meds: Medications Albuterol/Ipratropium (Duoneb) 3 ml NEB Q6HRT [facility] Last Admin: 01/09/18 07:08 Dose: 3 ml Alprazolam (Xanax) 0.5 mg PO Q6HP PRN PRN Reason: Anxiety Last Admin: 01/08/18 21:03 Dose: 0.5 mg Artificial Tears (Artificial Tears Ophth Drops) 1 gtt OU QIDP PRN PRN Reason: Dry Eye(s) Dextrose (Dextrose 50%) 25 ml IV UD PRN PRN Reason: Hypoglycemia Duloxetine HCl (Cymbalta) 30 mg PO DAILY [facility] Last Admin: 01/09/18 08:51 Dose: 30 mg Furosemide (Lasix) 20 mg IV DAILY [facility] Stop: 01/10/18 09:01 Last Admin: 01/09/18 08:51 Dose: 20 mg Glucose Oxid/Lactoperoxid/Muramidas (Biotene) 1 each TOPICAL PRN PRN PRN Reason: Dry Mouth Heparin Sodium (Porcine) (Heparin Flush) 2 ml IV Q12 [facility] Last Admin: 01/09/18 08:52 Dose: 2 ml Hydromorphone HCl (Dilaudid) 1 mg IV Q2HP PRN PRN Reason: PAIN LEVEL > 6 Last Admin: 01/09/18 11:44 Dose: 1 mg Heparin Sodium/Sodium Chloride (Heparin/Ns) 500 mls @ 0 mls/hr IV .Q0M KRISS; KVO PRN Reason: Protocol Metronidazole (Flagyl) 500 mg in 100 mls @ 100 mls/hr IV Q6H [facility] Last Admin: 01/09/18 12:07 Dose: 100 mls/hr Acetaminophen (Ofirmev) 1,000 mg in 100 mls @ 200 mls/hr IV Q6HP PRN PRN Reason: Pain Piperacillin Sod/Tazobactam (Sod 3.375 gm/ Dextrose) 50 mls @ 100 mls/hr IV Q6H [facility] Last Infusion: 01/09/18 12:05 Dose: Infused Metoclopramide HCl (Reglan) 5 mg IV Q8H [facility] Last Admin: 01/09/18 08:56 Dose: 5 mg Ondansetron HCl (Zofran) 4 mg IV Q4HP PRN PRN Reason: Nausea And Vomiting Pantoprazole Sodium (Protonix) 40 mg IV BIDAC [facility] Last Admin: 01/09/18 08:50 Dose: 40 mg Promethazine HCl (Phenergan) 12.5 mg IV Q4HP PRN PRN Reason: Nausea And Vomiting Sodium Chloride (Saline Flush) 10 ml IV UD PRN PRN Reason: FLUSH Last Admin: 01/06/18 16:15 Dose: 10 ml Sodium Chloride (Saline Flush) 10 ml IV Q8 [facility]ISS Last Admin: 01/09/18 05:07 Dose: 10 ml Medical - PN: A/P - Time Spent With Patient Total time spent is greater than 50% in coordination of care (as documented) at patient's floor/unit and/or counseling patient: - Narrative A/P Narrative: 77-year-old female, status post exploratory laparotomy in attempt for ileostomy takedown after prior Clark's procedure last May. Unable to accomplish anastomosis due to friable tissues. Status post exploratory laparotomy. Management per surgery. Still requires delayed closure of abdominal wound. Hospitalist consult for postoperative respiratory failure and mechanical ventilation. s/p exubation, doing well, on room air now, Possible HCAP PNA off all antibiotics, stable at this time Acute hypoxic respiratory failure. Now secondary to volume overload from fluid shifts Plan: intermittent diruesiss as needed, on daily lasix Hypokalemia K 3.4, replace. Anemia: Hb stable, s/p 2 units prbc. anxiety - depression-chronic pain. on cymbalta, tolerating it well. F/E/N: On TPN. [facility]vt [facility] Medical - PN: Qual - VTE Deep Vein Thrombosis/Pulmonary Embolism Present on Admission: No Procedures - Arterial Line Size (Gauge): 20
--- NOTE | 2018-01-09 14:18 | General Surgery Progress Note ---
Subjective Patient reports: feels better, pain is less, tolerating a regular diet, flatus, bowel movement, afebrile Narrative: Note initiated : 01/09/18 at 2:16 pm Service Date, if different from initiated Date: [] Patient: Caroline Bellamy 77 y/o F admitted on 12/23/17 for Ileostomy Closure and Colorectal Anastomosis. Chief Complaint: [patient is doing much better. Her pain is better controlled. She has less dyspnea and no tachypnea. Her by mouth intake is improved. She denies nausea. Her white blood count is 7.9 and her hemoglobin is 10.4. Her abdominal exam is healing and the base is clean. Discussed the possibility of closing her wound on Thursday with target date of discharge by Thursday if she continues to improve.] Objective Temp Pulse Resp BP Pulse Ox 98.3 F 87 16 120/68 94 01/09/18 06:57 01/09/18 12:44 01/09/18 12:44 01/09/18 06:57 01/09/18 08:40 - Additional Data Intake & Output - Last 24 hours: Intake & Output 01/07/18 01/08/18 01/09/18 01/10/18 05:59 05:59 05:59 05:59 Intake Total 3034 / 3034 1888 / 1888 1440 / 1440 500 / 500 Output Total 2387 / 2387 2433 / 2433 1460 / 1460 800 / 800 Balance 647 / 647 -545 / -545 -20 / -20 -300 / -300 Weight 144 lb 143 lb 8 oz 141 lb - Labs 01/09/18 04:40 01/09/18 04:40 Diabetes panel 01/09/18 Range/Units 04:40 Sodium 135 (133-145) mmol/L Potassium 3.4 (3.3-5.1) mmol/L Chloride 98 (96-108) mmol/L Carbon Dioxide 26 (22-30) mmol/L BUN 17 (8-23) mg/dl Creatinine 0.6 (0.6-1.1) mg/dl Glucose 90 (70-105) mg/dL Calcium 9.3 (8.6-10.4) mg/dl AST 10 (0-37) U/l ALT 6 (0-40) U/l Alkaline Phosphatase 73 (39-117) U/L Total Protein 6.3 (5.9-8.4) gm/dL Albumin 3.7 (3.2-5.2) gm/dL Triglycerides 52 (<150) mg/dl Calcium panel 01/09/18 Range/Units 04:40 Calcium 9.3 (8.6-10.4) mg/dl Phosphorus 3.3 (2.7-4.5) mg/dL Albumin 3.7 (3.2-5.2) gm/dL Pituitary panel 01/09/18 Range/Units 04:40 Sodium 135 (133-145) mmol/L Potassium 3.4 (3.3-5.1) mmol/L Chloride 98 (96-108) mmol/L Carbon Dioxide 26 (22-30) mmol/L BUN 17 (8-23) mg/dl Creatinine 0.6 (0.6-1.1) mg/dl Glucose 90 (70-105) mg/dL Calcium 9.3 (8.6-10.4) mg/dl Adrenal panel 01/09/18 Range/Units 04:40 Sodium 135 (133-145) mmol/L Potassium 3.4 (3.3-5.1) mmol/L Chloride 98 (96-108) mmol/L Carbon Dioxide 26 (22-30) mmol/L BUN 17 (8-23) mg/dl Creatinine 0.6 (0.6-1.1) mg/dl Glucose 90 (70-105) mg/dL Calcium 9.3 (8.6-10.4) mg/dl Total Bilirubin 0.5 (0.0-1.0) mg/dL AST 10 (0-37) U/l ALT 6 (0-40) U/l Alkaline Phosphatase 73 (39-117) U/L Total Protein 6.3 (5.9-8.4) gm/dL Albumin 3.7 (3.2-5.2) gm/dL Assessment and Plan (1) Ileostomy status Status: Acute Assessment and plan: STOMA IS WORKING FINE Current Visit: Yes (2) Protein-calorie malnutrition, moderate Status: Acute Assessment and plan: by mouth intake is improving daily Current Visit: No (3) Enterocutaneous fistula Status: Resolved Assessment and plan: advance to diet as tolerated Current Visit: Yes (4) Volume overload Status: Resolved Current Visit: Yes - Time Spent With Patient Total time spent is greater than 50% in coordination of care (as documented) at patient's floor/unit and/or counseling patient:
[2018-01-09] MEDS: ALPRAZolam 0.5 MG TABLET PO PRN (21:06)
[2018-01-10] MEDS: METOCLOPRAMIDE 10 MG/2 ML VIAL IV SCH ×3 (00:03→16:35)
[2018-01-10] MEDS: IPRATROPIUM/ALBUTEROL 3 ML AMPUL.NEB NEB SCH ×3 (01:00→14:14)
[2018-01-10] MEDS: HYDROmorphone 2 MG/ML VIAL IV PRN ×8 (01:25→23:40)
[2018-01-10] MEDS: PIPERACILLIN SODIUM/TAZOBACTAM 3.375 GM in DEXTROSE 5% IN WATER 50 ML IV SCH ×4 (04:35→23:13)
[2018-01-10] MEDS: metroNIDAZOLE 500 MG/100 ML BAG IV SCH ×4 (05:49→23:57)
[2018-01-10] MEDS: 0.9 % SODIUM CHLORIDE 10 ML SYRINGE IV SCH ×3 (05:50→20:43)
[2018-01-10 06:51] LABS: Basophils # (Auto) 0.1 K/mcL (0.0-0.3); Basophils % (Auto) 0.6 % (0.0-2.0); Eosinophils # (Auto) 0.3 K/mcL (0.0-0.7); Eosinophils % (Auto) 3.1 % (0.0-7.0); Granulocytes % (Auto) 74.8 % (38.0-78.0); Lymphocytes # (Auto) 1.1 K/mcL (1.5-4.8); Mean Cell Volume 80.1 fL (80.0-100.0); Mean Corpuscular HGB Conc 32.8 g/dL (31.0-36.0); Mean Corpuscular Hemoglobin 26.3 pg (26.0-34.0); Monocytes # (Auto) 1.1 K/mcL (0.1-0.9); Monocytes % (Auto) 10.5 % (1.0-12.0); Platelet Count 396 K/mcL (140-440); Red Cell Distribution Width 17.7 % (11.5-14.5)
[2018-01-10 06:55] LABS: ALT/SGPT 5 U/l (0-40); Albumin/Globulin Ratio 1.5 (1.0-2.3); Alkaline Phosphatase 77 U/L (39-117); Bilirubin,Direct < 0.2 mg/dL (0.0-0.3); Blood Urea Nitrogen 13 mg/dl (8-23); Gamma Glutamyl Transpeptidase 88 U/L (5-36); Uric Acid 4.1 mg/dL (2.5-8.0)
[2018-01-10] MEDS: PANTOPRAZOLE 40 MG VIAL IV SCH ×2 (07:01→16:35)
[2018-01-10] MEDS: DULoxetine 30 MG CAPSULE PO SCH (09:39)
[2018-01-10] MEDS: FUROSEMIDE 20 MG/2 ML VIAL IV SCH (10:04)
--- NOTE | 2018-01-10 10:05 | Internal Med Progress Note ---
Medical - PN: Subj Patient information: Note initiated : 01/10/18 at 10:04 am Service Date, if different from initiated Date: [] Patient: Caroline Bellamy a 77 y/o F admitted on 12/23/17 for Ileostomy Closure and Colorectal Anastomosis. Chief Complaint: [] Interval history: December 23-Ms. Adiel Cardoso is a 77 year old F with a complex history with hospitalization May 2017 with diverticulitis perforation/peritonitis and prolonged hospital stay. 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 Hospitalization course was complicated by respiratory failure requiring mechanical ventilation and intra-abdominal infection with Pseudomonas. She underwent rehabilitation/TPN and prolonged hospitalization and was gradually recovering. She she now underwent expiratory laparotomy with extensive epidural lysis and small bowel resection. Postoperatively patient was unable to be extubated. Subsequently hospitalist service was consulted and patient was brought into the ICU on mechanical ventilation. patient currently on propofol/fentanyl. No family members available. systolics around 100. Patient has a line. Foleys catheter draining clear urine December 24-patient on mechanical ventilation. Map at 65 on 5 mics Levophed. Improving urine output. On light sedation. Weaning ventilator down to FiO2 35% , ABG 7.47/31/147. chest imaging revealed moderate left and small to moderat bibasilar infiltrate/effusion worsening since previous day. on Zosyn/Flagyl. Continue propofol/fentanyl for sedation. Start sedation holiday in a.m. for possible extubation. Continue weaning vasopressors. December 25- [place] [address]. Off vasopressors, T MAX 100, no chills. No anxiety, responding to verbal commands, on SBT/sedation holiday, Interval chest iamging shows atelectasis and pl effusion. alert. stable renal function. Diminishing urine output. A line and central line no localized bleeding or redness. No telemetry events. Possible extubation today.ABG 7.35/38/96 on 35% FiO2 and PEEP December 26-Successfully extubated yesterday morning. Remained stable overnight. The morning wanting to try to eat or drink something. WBC decreased from 23K to 19K. However, late this morning, developed leakage of bowel contents through part of her abdominal incision. Taken back to the operating room for exploratory laparotomy. Will likely require mechanical ventilation postoperatively. December 27-patient successfully underwent repair of small leak in the distal ileum yesterday. Remained intubated overnight. This morning during sedation vacation and spontaneous breathing trial, patient was saturating well on 35% room air, had good minute ventilation during the breathing trial. She is successfully extubated. We'll later, respirations became labored. She was receiving significant volumes of IV fluid with maintenance as well as supplements being infused. Responded well to low-dose furosemide with improvement in respiratory status. December 28-overnight, had recurrent respiratory distress, tachypnea, labored respirations with rales and wheezes. Responded to further furosemide about 1 AM. Had recurrent respiratory distress about 5:30 this morning. Respirations were labored, while on only 2 L nasal cannula, saturations are dropped from high 90s to low 90s. She had wheezes as well as rales on exam. Received 10 mg of IV furosemide with some urine output and mild improvement, however required BiPAP therapy. Receive further 20 mg of furosemide with brisk diuresis. Remains on BiPAP for respiratory support. Chest x-ray with worsening interstitial infiltrates. Exam also with significant jugular venous distention consistent with volume overload. Has been receiving albumin. December 29-patient continues on BiPAP. She is off for a while this morning, became dyspneic. Improved approximately 1-2 hours after morning furosemide dose. She tends to have more respiratory distress as the furosemide has worn off. Has been receiving furosemide every 8 hours with good diuresis. Renal functions remain stable. At one point was complaining to family that she did not want to keep going with therapy, though seems to improved later in the morning. December 30-on BiPAP most of the night. Urine output responding to 20 mg of Lasix every 6 hours, urine output tails off towards the end. Receiving albumin and Lasix scheduled. Overall respiratory status clinically improved. Changed over to high flow nasal cannula this morning which she is tolerating. She complains of feeling tired, doesn't think she is any better. december 31 Pt seen and examined, no acute overnight events. Patient's chest x-ray shows worsening infiltrate versus ARDS versus pneumonia. Patient is on Zosyn as well as Flagyl. Start on vancomycin IV. She has completed her albumin and Lasix dosing according to the nurse. X-ray chest to rule is worsened. Patient is on 35% FiO2 by high flow nasal cannula. She seems to be tolerating it well. Her oxygen level is maintained with this. The patient definitely is tachypneic. She still complains about significant abdominal pain. [id number] ultrasound done IVC reviewed, the patient has complete collapse of the IVC with inspiration. This indicates that the patient does not seem to be in fluid overload other is volume depleted after aggressive diuresis. For now we will just hold off on Lasix and monitor. january 01 Patient seen and examined, no acute overnight events. She did use BiPAP for a while and then went back to her high flow nasal cannula. Chest x-ray shows persistent infiltrates. Clinically she is not volume overloaded. Oxygen requirements are trending down. She does note that she is very tired and wanted to give up overnight but after talking with the family she decided to continue. I do not believe that the patient is end-stage at this point in time, and she has a chance of recovery. Hold off on diuresis for now. Start on Cymbalta 30 mg once a day, they should help her with some anxiety depression as well as chronic aches and pains. Plan of care reviewed with the patient as well as the family. Use BiPAP as much as tolerated. january 02 Pt seen examined, no acute overnight issues, tolerating bipap intermittently had a better night pain is also better she is in better spirits today. family by the bed side She had one episode of shortness of breath yesterday, which improved with duonebs. Her IVC also showed more distention than the previous day, although still collapsing completely. Will keep the patient on low dose of lasix 20mg dailiy to keep her lungs as dry as possible She is oxygenating well, will wean off the hi moon nasal canula today if she is able to. january 03 Pt seen examined, overnight was confused after use of xanasx, this am drowsy, as she had received dilaudid but overall she is stable no complaints when woken up on bipap for now she was sob when she was weaned off the hiflo nasal canula continue same. january 04 pt seen examined, no acute overnight events, pain well controlled, CXR yesterday showed worsening infiltrates, caspofungin started in light of worsening infiltrates yesterday and tracheal aspirate growing anil. Pt off hiflo nasal canula today remains on iv diuresis overall stable 01/05- patient doing well. No overnight events. Diuresing well. Able to get out of bed to chair. Slightly short of breath but on room air. Much improved lymphedema. Tolerating diet advancement per surgery. On supplemental TPN currently being weaned. No overnight fever chills or concerns per staff. Stable hemodynamics and labs.hemoglobin 8.2 01/06-ppatient doing better. Transfer to medical floor. On oral diet per surgery. TPN currently being weaned. No overnight fever chills nausea vomiting. Anticipate surgical closure of the abdominal incision over the next few days. Managed by surgery. No further recommendations from hospitalist service. Lower Lasix dose to once daily 01/07- patient doing well. Ambulating with assistance. Tolerating diet advancement. white count down to 9.2 however hemoglobin at 6.7. No overnight events or concerns per staff. T-Max 99. Scheduled 2 units PRBC transfusion. stool guaiac negative. No source of occult bleed. Continue monitoring. Likely secondary to marrow suppression. 01/08-patient doing remarkably better. Hemoglobin 10.2. White count down to 8.4. On room air. Ambulating and able to transfer from bed to chair with minimal assistance. In good spirits. Discontinue vancomycin and caspofungin. on Zosyn/Flagyl per surgery. No overnight events or concerns per staff 01/09 Patient doing well, hemoglobin stable, white count normal, potassium 3.4 being replaced. Patient has no acute complaints or concerns. She is able to tolerate some food does not have much hungry today. Otherwise she remains on broad-spectrum antibiotics as per surgery. 01/10 Pt seen examined, no acute issues, no acute complaints, labs stable, waiting for closure surgery in AM no need for lasix today. Pertinent ROS: Denies headache, dizziness Denies chest pain, palpitations Denies cough or shortness of breath Denies abdominal pain, nausea or vomiting. - Constitutional Vitals: Vital Signs Temp Pulse Resp BP Pulse Ox 98.3 F 82 20 124/60 93 01/10/18 06:45 01/10/18 04:53 01/10/18 06:45 01/10/18 06:45 01/10/18 06:45 Period Temp Pulse Resp BP Sys/[place] Pulse Ox Last 24 Hr 98.1 F-98.8 F 82-98 16-22 117-132/60-77 92-95 Intake and Output 01/09/18 01/10/18 01/10/18 21:59 05:59 13:59 Intake Total 440 / 440 350 / 350 Output Total 700 / 700 240 / 240 Balance -260 / -260 110 / 110 Weight 136 lb 8 oz Intake & Output: Intake & Output 01/09/18 01/10/18 01/10/18 21:59 05:59 13:59 Intake Total 440 / 440 350 / 350 Output Total 700 / 700 240 / 240 Balance -260 / -260 110 / 110 Weight 136 lb 8 oz Intake: IV 200 / 200 200 / 200 Zosyn 3.375 gm In Dextrose 5% 100 / 100 100 / 100 in Water 50 ml @ 100 mls/hr IV Q6H [facility] Rx#:[id number] Oral 240 / 240 150 / 150 Output: Drainage RIDDHI A RIDDHI B Void Amount 575 / 575 200 / 200 Stool 125 / 125 25 / 25 Other: Stool Color Brown Stool Consistency Liquid Exam: Constitutional; Afebrile, cooperative, alert, not in distress. Eyes- No icterus, , No periorbital swelling Ears- Ext ear normal, hearing normal to conversation. Neck- Midline trachea, supple Respiratory system: Air Entry equal on both sides, No crackles or wheezing, no rhonchi. CVS- Rate rhythm regular, S1,S2 heard, no gallop, no rub. CHART SNATCHER- AOOx3, moving all extremities, no gross focal deficit noted. Medical - PN: Obj Da - Labs CBC & Chem 7: 01/10/18 04:36 01/10/18 04:36 Labs: Abnormal Lab Results 01/10/18 01/10/18 01/09/18 04:36 04:36 04:40 RBC Hgb 10.8 L Hct 32.8 L MCV MCH RDW 17.7 H Lymph % (Auto) 11.0 L Lymph # (Auto) 1.1 L [place] # (Auto) 1.1 H Seg Neutrophils % Lymphocytes % Hypochromasia Anisocytosis Microcytosis GGT 88 H 78 H 01/09/18 01/08/18 01/08/18 04:40 04:30 04:30 RBC 3.89 L 3.85 L Hgb 10.4 L 10.2 L Hct 31.5 L 31.2 L MCV MCH RDW 16.8 H 17.0 H Lymph % (Auto) 9.4 L 8.0 L Lymph # (Auto) 0.7 L 0.7 L [place] # (Auto) Seg Neutrophils % Lymphocytes % Hypochromasia Anisocytosis Microcytosis GGT 86 H 01/07/18 11:13 RBC 2.67 L Hgb 6.7 L* Hct 20.6 L* MCV 77.2 L MCH 25.2 L RDW 16.0 H Lymph % (Auto) Lymph # (Auto) [place] # (Auto) Seg Neutrophils % 80 H Lymphocytes % 10 L Hypochromasia 1+ A Anisocytosis 1+ A Microcytosis 1+ A GGT Meds: Medications Albuterol/Ipratropium (Duoneb) 3 ml NEB Q6HRT [facility] Last Admin: 01/10/18 07:22 Dose: Not Given Alprazolam (Xanax) 0.5 mg PO Q6HP PRN PRN Reason: Anxiety Last Admin: 01/09/18 21:06 Dose: 0.5 mg Artificial Tears (Artificial Tears Ophth Drops) 1 gtt OU QIDP PRN PRN Reason: Dry Eye(s) Dextrose (Dextrose 50%) 25 ml IV UD PRN PRN Reason: Hypoglycemia Duloxetine HCl (Cymbalta) 30 mg PO DAILY [facility] Last Admin: 01/10/18 09:39 Dose: 30 mg Glucose Oxid/Lactoperoxid/Muramidas (Biotene) 1 each TOPICAL PRN PRN PRN Reason: Dry Mouth Heparin Sodium (Porcine) (Heparin Flush) 2 ml IV Q12 [facility] Last Admin: 01/10/18 09:39 Dose: 2 ml Hydromorphone HCl (Dilaudid) 1 mg IV Q2HP PRN PRN Reason: PAIN LEVEL > 6 Last Admin: 01/10/18 07:37 Dose: 1 mg Heparin Sodium/Sodium Chloride (Heparin/Ns) 500 mls @ 0 mls/hr IV .Q0M [facility]; KVO PRN Reason: Protocol Metronidazole (Flagyl) 500 mg in 100 mls @ 100 mls/hr IV Q6H [facility] Last Admin: 01/10/18 05:49 Dose: 100 mls/hr Acetaminophen (Ofirmev) 1,000 mg in 100 mls @ 200 mls/hr IV Q6HP PRN PRN Reason: Pain Piperacillin Sod/Tazobactam (Sod 3.375 gm/ Dextrose) 50 mls @ 100 mls/hr IV Q6H [facility] Last Infusion: 01/10/18 05:17 Dose: Infused Metoclopramide HCl (Reglan) 5 mg IV Q8H [facility] Last Admin: 01/10/18 07:37 Dose: 5 mg Ondansetron HCl (Zofran) 4 mg IV Q4HP PRN PRN Reason: Nausea And Vomiting Pantoprazole Sodium (Protonix) 40 mg IV BIDAC [facility] Last Admin: 01/10/18 07:01 Dose: 40 mg Promethazine HCl (Phenergan) 12.5 mg IV Q4HP PRN PRN Reason: Nausea And Vomiting Sodium Chloride (Saline Flush) 10 ml IV UD PRN PRN Reason: FLUSH Last Admin: 01/06/18 16:15 Dose: 10 ml Sodium Chloride (Saline Flush) 10 ml IV Q8 [facility] Last Admin: 01/10/18 05:50 Dose: 10 ml Medical - PN: A/P - Time Spent With Patient Total time spent is greater than 50% in coordination of care (as documented) at patient's floor/unit and/or counseling patient: - Narrative A/P Narrative: 77-year-old female, status post exploratory laparotomy in attempt for ileostomy takedown after prior Clark's procedure last May. Unable to accomplish anastomosis due to friable tissues. Status post exploratory laparotomy. Management per surgery. Still requires delayed closure of abdominal wound. Hospitalist consult for postoperative respiratory failure and mechanical ventilation. s/p exubation, doing well, on room air now, Possible HCAP PNA off all antibiotics, stable at this time Acute hypoxic respiratory failure. Now secondary to volume overload from fluid shifts Plan: intermittent diuresis as needed, hold lasix for now. Hypokalemia resolved. Anemia: Hb stable, s/p 2 units prbc. anxiety - depression-chronic pain. on cymbalta, tolerating it well. F/E/N: On TPN. dvt scd Medical - PN: Qual - VTE Deep Vein Thrombosis/Pulmonary Embolism Present on Admission: No Procedures - Arterial Line Size (Gauge): 20
--- NOTE | 2018-01-10 13:09 | General Surgery Progress Note ---
Subjective Patient reports: feels better, pain is less, tolerating a regular diet, flatus, bowel movement, afebrile Narrative: Note initiated : 01/10/18 at 1:07 pm Service Date, if different from initiated Date: [] Patient: Caroline Bellamy 77 y/o F admitted on 12/23/17 for Ileostomy Closure and Colorectal Anastomosis. Chief Complaint: [patient is gradually improving. She does not have any respiratory distress. Her wound is clean. White blood count is normal.. Discussed closing her incision secondarily tomorrow. Tentative plans a stable for discharge home with home health on Thursday.] Objective Temp Pulse Resp BP Pulse Ox 98.3 F 82 20 124/60 93 01/10/18 06:45 01/10/18 04:53 01/10/18 06:45 01/10/18 06:45 01/10/18 06:45 - Additional Data Intake & Output - Last 24 hours: Intake & Output 01/08/18 01/09/18 01/10/18 01/11/18 05:59 05:59 05:59 05:59 Intake Total 1888 / 1888 1440 / 1440 1290 / 1290 150 / 150 Output Total 2433 / 2433 1460 / 1460 1740 / 1740 Balance -545 / -545 -20 / -20 -450 / -450 150 / 150 Weight 143 lb 8 oz 141 lb 136 lb 8 oz - General physical appearance well developed, well nourished, no distress - Eyes PERRL, normal ocular movement - ENT normal pinna, normal nares, normal mucosa, no hearing loss, no congestion - Neck no masses, no bruits, trachea midline, no lymphadectomy, no venous distension - Respiratory normal expansion, normal respiratory effort, other (lungs are basically clear without any rales rhonchi or wheezes) - Cardiovascular Cardiovascular exam: Present: normal rate and rhythm, RRR, +S1, +S2. Absent: JVD - Abdomen non tender, bowel sounds (present), surgical scars (none), wound (operative wound is clean and should be amenable to closure tomorrow), masses (none) - Integumentary no rash, no growths, no abnormal pigmentation - Neurologic normal coordination, normal sensation - Musculoskeletal normal gait, normal posture - Psychiatric oriented to time, oriented to person, oriented to place, speech is normal, memory intact - Labs 01/10/18 04:36 01/10/18 04:36 Diabetes panel 01/10/18 Range/Units 04:36 Sodium 136 (133-145) mmol/L Potassium 3.7 (3.3-5.1) mmol/L Chloride 98 (96-108) mmol/L Carbon Dioxide 26 (22-30) mmol/L BUN 13 (8-23) mg/dl Creatinine 0.6 (0.6-1.1) mg/dl Glucose 94 (70-105) mg/dL Calcium 9.6 (8.6-10.4) mg/dl AST 11 (0-37) U/l ALT 5 (0-40) U/l Alkaline Phosphatase 77 (39-117) U/L Total Protein 6.6 (5.9-8.4) gm/dL Albumin 4.0 (3.2-5.2) gm/dL Triglycerides 60 (<150) mg/dl Calcium panel 01/10/18 Range/Units 04:36 Calcium 9.6 (8.6-10.4) mg/dl Phosphorus 3.1 (2.7-4.5) mg/dL Albumin 4.0 (3.2-5.2) gm/dL Pituitary panel 01/10/18 Range/Units 04:36 Sodium 136 (133-145) mmol/L Potassium 3.7 (3.3-5.1) mmol/L Chloride 98 (96-108) mmol/L Carbon Dioxide 26 (22-30) mmol/L BUN 13 (8-23) mg/dl Creatinine 0.6 (0.6-1.1) mg/dl Glucose 94 (70-105) mg/dL Calcium 9.6 (8.6-10.4) mg/dl Adrenal panel 01/10/18 Range/Units 04:36 Sodium 136 (133-145) mmol/L Potassium 3.7 (3.3-5.1) mmol/L Chloride 98 (96-108) mmol/L Carbon Dioxide 26 (22-30) mmol/L BUN 13 (8-23) mg/dl Creatinine 0.6 (0.6-1.1) mg/dl Glucose 94 (70-105) mg/dL Calcium 9.6 (8.6-10.4) mg/dl Total Bilirubin 0.6 (0.0-1.0) mg/dL AST 11 (0-37) U/l ALT 5 (0-40) U/l Alkaline Phosphatase 77 (39-117) U/L Total Protein 6.6 (5.9-8.4) gm/dL Albumin 4.0 (3.2-5.2) gm/dL Assessment and Plan (1) Ileostomy status Status: Acute Assessment and plan: STOMA IS WORKING FINE Current Visit: Yes (2) Protein-calorie malnutrition, moderate Status: Acute Assessment and plan: by mouth intake is improving daily Current Visit: No (3) Enterocutaneous fistula Status: Resolved Assessment and plan: advance to diet as tolerated Current Visit: Yes (4) Volume overload Status: Resolved Assessment and plan: BUN is beginning to rise which may suggest intravenous volume contraction. Current Visit: Yes - Time Spent With Patient Total time spent is greater than 50% in coordination of care (as documented) at patient's floor/unit and/or counseling patient:
--- NOTE | 2018-01-10 18:42 | XRay Report ---
CLINICAL INFORMATION: Preop COMPARISON: 01/03/2018 FINDINGS: Moderate cardiomegaly is unchanged. Right PICC line tip overlies the tricuspid valve plane. The remaining mediastinum and pulmonary vasculature are unremarkable Bilateral lower lung infiltrates show improvement, but there is moderate patchy residual. Small bilateral pleural effusions noted. IMPRESSION: Improving bibasilar infiltrates with moderate residual. Small bilateral pleural effusions PICC line malpositioned - the tip overlies the tricuspid valve. Suggest withdrawing line 5 cm Interpreted and Authenticated by: Valentin Torres 01/10/18
[2018-01-10] MEDS: ALPRAZolam 0.5 MG TABLET PO PRN (20:43)
[2018-01-11] MEDS: METOCLOPRAMIDE 10 MG/2 ML VIAL IV SCH ×3 (00:24→17:13)
[2018-01-11] MEDS: IPRATROPIUM/ALBUTEROL 3 ML AMPUL.NEB NEB PRN ×2 (00:32→08:12)
[2018-01-11] MEDS: PIPERACILLIN SODIUM/TAZOBACTAM 3.375 GM in DEXTROSE 5% IN WATER 50 ML IV SCH ×4 (05:03→22:12)
[2018-01-11] MEDS: 0.9 % SODIUM CHLORIDE 10 ML SYRINGE IV PRN (05:05)
[2018-01-11] MEDS: 0.9 % SODIUM CHLORIDE 10 ML SYRINGE IV SCH ×3 (05:05→22:14)
[2018-01-11] MEDS: metroNIDAZOLE 500 MG/100 ML BAG IV SCH ×4 (05:31→23:01)
[2018-01-11 06:28] LABS: Basophils # (Auto) 0 K/mcL (0.0-0.3); Basophils % (Auto) 0.5 % (0.0-2.0); Eosinophils # (Auto) 0.2 K/mcL (0.0-0.7); Granulocytes % (Auto) 75.4 % (38.0-78.0); Lymphocytes # (Auto) 0.9 K/mcL (1.5-4.8); Lymphocytes % (Auto) 11.5 % (15.5-49.0); Mean Corpuscular HGB Conc 32.4 g/dL (31.0-36.0); Mean Corpuscular Hemoglobin 26.2 pg (26.0-34.0); Monocytes # (Auto) 0.8 K/mcL (0.1-0.9); Monocytes % (Auto) 10.6 % (1.0-12.0); Platelet Count 361 K/mcL (140-440); RBC 3.99 M/mcL (4.00-5.20); Red Cell Distribution Width 17.8 % (11.5-14.5)
[2018-01-11 07:24] LABS: ALT/SGPT < 5 U/l (0-40); Albumin 3.8 gm/dL (3.2-5.2); Albumin/Globulin Ratio 1.5 (1.0-2.3); Alkaline Phosphatase 73 U/L (39-117); Bilirubin,Direct < 0.2 mg/dL (0.0-0.3); Blood Urea Nitrogen 8 mg/dl (8-23); Gamma Glutamyl Transpeptidase 79 U/L (5-36); Uric Acid 3.2 mg/dL (2.5-8.0)
[2018-01-11] MEDS: PANTOPRAZOLE 40 MG VIAL IV SCH ×2 (07:47→17:13)
[2018-01-11] MEDS ORDERED: FUROSEMIDE 20 MG/2 ML VIAL IV ONE (08:10)
[2018-01-11] MEDS ORDERED: POTASSIUM CHLORIDE 40 MEQ in DEXTROSE 5% IN WATER 500 ML IV ONE (08:30)
[2018-01-11] MEDS: DULoxetine 30 MG CAPSULE PO SCH (08:50)
--- NOTE | 2018-01-11 08:56 | XRay Report ---
INDICATION: Dyspnea TECHNIQUE: AP chest x-ray,portable upright COMPARISON: 01/10/2018, 01/05/2018, 01/02/2018 FINDINGS:No change in position of the right-sided PICC line. PICC line tip is in the right atrium. Bibasilar infiltrates are unchanged since 01/10/2018 but improved since 01/03/2018. No new abnormality. No change in heart size or vascularity IMPRESSION: 1. Bibasilar infiltrates 2. No interval change since 01/10/2018. Interval improvement since 01/03/2018. Interpreted and Authenticated by: Valentin Alanis 01/11/18
--- NOTE | 2018-01-11 09:21 | Internal Med Progress Note ---
Medical - PN: Subj Patient information: Note initiated : 01/11/18 at 9:19 am Service Date, if different from initiated Date: [] Patient: Caroline Bellamy a 77 y/o F admitted on 12/23/17 for Ileostomy Closure and Colorectal Anastomosis. Chief Complaint: [] Interval history: December 23-Ms. Adiel Cardoso is a 77 year old F with a complex history with hospitalization May 2017 with diverticulitis perforation/peritonitis and prolonged hospital stay. 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 Hospitalization course was complicated by respiratory failure requiring mechanical ventilation and intra-abdominal infection with Pseudomonas. She underwent rehabilitation/TPN and prolonged hospitalization and was gradually recovering. She she now underwent expiratory laparotomy with extensive epidural lysis and small bowel resection. Postoperatively patient was unable to be extubated. Subsequently hospitalist service was consulted and patient was brought into the ICU on mechanical ventilation. patient currently on propofol/fentanyl. No family members available. systolics around 100. Patient has a line. Foleys catheter draining clear urine December 24-patient on mechanical ventilation. Map at 65 on 5 mics Levophed. Improving urine output. On light sedation. Weaning ventilator down to FiO2 35% , ABG 7.47/31/147. chest imaging revealed moderate left and small to moderat bibasilar infiltrate/effusion worsening since previous day. on Zosyn/Flagyl. Continue propofol/fentanyl for sedation. Start sedation holiday in a.m. for possible extubation. Continue weaning vasopressors. December 25- [place] [id number]. Off vasopressors, T MAX 100, no chills. No anxiety, responding to verbal commands, on SBT/sedation holiday, Interval chest iamging shows atelectasis and pl effusion. alert. stable renal function. Diminishing urine output. A line and central line no localized bleeding or redness. No telemetry events. Possible extubation today.ABG 7.35/38/96 on 35% FiO2 and PEEP December 26-Successfully extubated yesterday morning. Remained stable overnight. The morning wanting to try to eat or drink something. WBC decreased from 23K to 19K. However, late this morning, developed leakage of bowel contents through part of her abdominal incision. Taken back to the operating room for exploratory laparotomy. Will likely require mechanical ventilation postoperatively. December 27-patient successfully underwent repair of small leak in the distal ileum yesterday. Remained intubated overnight. This morning during sedation vacation and spontaneous breathing trial, patient was saturating well on 35% room air, had good minute ventilation during the breathing trial. She is successfully extubated. We'll later, respirations became labored. She was receiving significant volumes of IV fluid with maintenance as well as supplements being infused. Responded well to low-dose furosemide with improvement in respiratory status. December 28-overnight, had recurrent respiratory distress, tachypnea, labored respirations with rales and wheezes. Responded to further furosemide about 1 AM. Had recurrent respiratory distress about 5:30 this morning. Respirations were labored, while on only 2 L nasal cannula, saturations are dropped from high 90s to low 90s. She had wheezes as well as rales on exam. Received 10 mg of IV furosemide with some urine output and mild improvement, however required BiPAP therapy. Receive further 20 mg of furosemide with brisk diuresis. Remains on BiPAP for respiratory support. Chest x-ray with worsening interstitial infiltrates. Exam also with significant jugular venous distention consistent with volume overload. Has been receiving albumin. December 29-patient continues on BiPAP. She is off for a while this morning, became dyspneic. Improved approximately 1-2 hours after morning furosemide dose. She tends to have more respiratory distress as the furosemide has worn off. Has been receiving furosemide every 8 hours with good diuresis. Renal functions remain stable. At one point was complaining to family that she did not want to keep going with therapy, though seems to improved later in the morning. December 30-on BiPAP most of the night. Urine output responding to 20 mg of Lasix every 6 hours, urine output tails off towards the end. Receiving albumin and Lasix scheduled. Overall respiratory status clinically improved. Changed over to high flow nasal cannula this morning which she is tolerating. She complains of feeling tired, doesn't think she is any better. december 31 Pt seen and examined, no acute overnight events. Patient's chest x-ray shows worsening infiltrate versus ARDS versus pneumonia. Patient is on Zosyn as well as Flagyl. Start on vancomycin IV. She has completed her albumin and Lasix dosing according to the nurse. X-ray chest to rule is worsened. Patient is on 35% FiO2 by high flow nasal cannula. She seems to be tolerating it well. Her oxygen level is maintained with this. The patient definitely is tachypneic. She still complains about significant abdominal pain. [id number] ultrasound done IVC reviewed, the patient has complete collapse of the IVC with inspiration. This indicates that the patient does not seem to be in fluid overload other is volume depleted after aggressive diuresis. For now we will just hold off on Lasix and monitor. january 01 Patient seen and examined, no acute overnight events. She did use BiPAP for a while and then went back to her high flow nasal cannula. Chest x-ray shows persistent infiltrates. Clinically she is not volume overloaded. Oxygen requirements are trending down. She does note that she is very tired and wanted to give up overnight but after talking with the family she decided to continue. I do not believe that the patient is end-stage at this point in time, and she has a chance of recovery. Hold off on diuresis for now. Start on Cymbalta 30 mg once a day, they should help her with some anxiety depression as well as chronic aches and pains. Plan of care reviewed with the patient as well as the family. Use BiPAP as much as tolerated. january 02 Pt seen examined, no acute overnight issues, tolerating bipap intermittently had a better night pain is also better she is in better spirits today. family by the bed side She had one episode of shortness of breath yesterday, which improved with duonebs. Her IVC also showed more distention than the previous day, although still collapsing completely. Will keep the patient on low dose of lasix 20mg dailiy to keep her lungs as dry as possible She is oxygenating well, will wean off the hi moon nasal canula today if she is able to. january 03 Pt seen examined, overnight was confused after use of xanasx, this am drowsy, as she had received dilaudid but overall she is stable no complaints when woken up on bipap for now she was sob when she was weaned off the hiflo nasal canula continue same. january 04 pt seen examined, no acute overnight events, pain well controlled, CXR yesterday showed worsening infiltrates, caspofungin started in light of worsening infiltrates yesterday and tracheal aspirate growing anil. Pt off hiflo nasal canula today remains on iv diuresis overall stable 01/05- patient doing well. No overnight events. Diuresing well. Able to get out of bed to chair. Slightly short of breath but on room air. Much improved lymphedema. Tolerating diet advancement per surgery. On supplemental TPN currently being weaned. No overnight fever chills or concerns per staff. Stable hemodynamics and labs.hemoglobin 8.2 01/06-ppatient doing better. Transfer to medical floor. On oral diet per surgery. TPN currently being weaned. No overnight fever chills nausea vomiting. Anticipate surgical closure of the abdominal incision over the next few days. Managed by surgery. No further recommendations from hospitalist service. Lower Lasix dose to once daily 01/07- patient doing well. Ambulating with assistance. Tolerating diet advancement. white count down to 9.2 however hemoglobin at 6.7. No overnight events or concerns per staff. T-Max 99. Scheduled 2 units PRBC transfusion. stool guaiac negative. No source of occult bleed. Continue monitoring. Likely secondary to marrow suppression. 01/08-patient doing remarkably better. Hemoglobin 10.2. White count down to 8.4. On room air. Ambulating and able to transfer from bed to chair with minimal assistance. In good spirits. Discontinue vancomycin and caspofungin. on Zosyn/Flagyl per surgery. No overnight events or concerns per staff 01/09 Patient doing well, hemoglobin stable, white count normal, potassium 3.4 being replaced. Patient has no acute complaints or concerns. She is able to tolerate some food does not have much hungry today. Otherwise she remains on broad-spectrum antibiotics as per surgery. 01/10 Pt seen examined, no acute issues, no acute complaints, labs stable, waiting for closure surgery in AM no need for lasix today. 01/11 Pt seen examined, no acute overnight issues, this AM noted to be bit short of breath, but pt denies any issues, some nausea and vomiting reported by staff duoneb x 1 given, lasix x 1 given, repeat CXR is stable monitor for now. plan for surgery this afternoon. Pertinent ROS: Denies headache, dizziness Denies chest pain, palpitations Denies cough or shortness of breath Denies abdominal pain, nausea or vomiting. (pt denies complaints, but was visibilby a bit short of breath, and did have nausea and vomiting after my rounds) - Constitutional Vitals: Vital Signs Temp Pulse Resp BP Pulse Ox 98.1 F 80 22 140/68 93 01/11/18 06:30 01/11/18 08:13 01/11/18 08:13 01/11/18 06:30 01/11/18 06:30 Period Temp Pulse Resp BP Sys/[place] Pulse Ox Last 24 Hr 98.1 F-99.2 F 80-93 16-22 125-140/68-76 92-94 Intake and Output 01/10/18 01/11/18 01/11/18 21:59 05:59 13:59 Intake Total 150 / 150 660 / 660 100 / 100 Output Total 200 / 200 600 / 600 200 / 200 Balance -50 / -50 60 / 60 -100 / -100 Weight 137 lb Intake & Output: Intake & Output 01/10/18 01/11/18 01/11/18 21:59 05:59 13:59 Intake Total 150 / 150 660 / 660 100 / 100 Output Total 200 / 200 600 / 600 200 / 200 Balance -50 / -50 60 / 60 -100 / -100 Weight 137 lb Intake: IV 150 / 150 200 / 200 100 / 100 Zosyn 3.375 gm In Dextrose 5% 50 / 50 100 / 100 in Water 50 ml @ 100 mls/hr IV Q6H [facility] Rx#:[id number] Oral 460 / 460 Output: Void Amount 200 / 200 475 / 475 200 / 200 Stool 125 / 125 Other: Meal Dinner Percent of Meal Consumed 0% Stool Color Brown Stool Consistency Liquid Exam: Constitutional; Afebrile, cooperative, alert, not in distress. Eyes- No icterus, , No periorbital swelling Ears- Ext ear normal, hearing normal to conversation. Neck- Midline trachea, supple Respiratory system: Air Entry equal on both sides, No crackles or wheezing, no rhonchi. CVS- Rate rhythm regular, S1,S2 heard, no gallop, no rub. STRAP MAKER- AOOx3, moving all extremities, no gross focal deficit noted. Medical - PN: Obj Da - Labs CBC & Chem 7: 01/11/18 04:41 01/11/18 04:41 Labs: Abnormal Lab Results 01/11/18 01/11/18 01/10/18 04:41 04:41 04:36 RBC 3.99 L Hgb 10.5 L Hct 32.3 L RDW 17.8 H Lymph % (Auto) 11.5 L Lymph # (Auto) 0.9 L [place] # (Auto) Creatinine 0.5 L GGT 79 H 88 H 01/10/18 01/09/18 01/09/18 04:36 04:40 04:40 RBC 3.89 L Hgb 10.8 L 10.4 L Hct 32.8 L 31.5 L RDW 17.7 H 16.8 H Lymph % (Auto) 11.0 L 9.4 L Lymph # (Auto) 1.1 L 0.7 L [place] # (Auto) 1.1 H Creatinine GGT 78 H Meds: Medications Albuterol/Ipratropium (Duoneb) 3 ml NEB Q6HP PRN PRN Reason: Wheezing Last Admin: 01/11/18 08:12 Dose: 3 ml Alprazolam (Xanax) 0.5 mg PO Q6HP PRN PRN Reason: Anxiety Last Admin: 01/10/18 20:43 Dose: 0.5 mg Artificial Tears (Artificial Tears Ophth Drops) 1 gtt OU QIDP PRN PRN Reason: Dry Eye(s) Dextrose (Dextrose 50%) 25 ml IV UD PRN PRN Reason: Hypoglycemia Duloxetine HCl (Cymbalta) 30 mg PO DAILY [facility] Last Admin: 01/11/18 08:50 Dose: Not Given Glucose Oxid/Lactoperoxid/Muramidas (Biotene) 1 each TOPICAL PRN PRN PRN Reason: Dry Mouth Heparin Sodium (Porcine) (Heparin Flush) 2 ml IV Q12 KRISS Last Admin: 01/10/18 20:43 Dose: 2 ml Hydromorphone HCl (Dilaudid) 1 mg IV Q2HP PRN PRN Reason: PAIN LEVEL > 6 Last Admin: 01/10/18 23:40 Dose: 1 mg Heparin Sodium/Sodium Chloride (Heparin/Ns) 500 mls @ 0 mls/hr IV .Q0M KRISS; KVO PRN Reason: Protocol Metronidazole (Flagyl) 500 mg in 100 mls @ 100 mls/hr IV Q6H [facility] Last Infusion: 01/11/18 06:31 Dose: Infused Acetaminophen (Ofirmev) 1,000 mg in 100 mls @ 200 mls/hr IV Q6HP PRN PRN Reason: Pain Piperacillin Sod/Tazobactam (Sod 3.375 gm/ Dextrose) 50 mls @ 100 mls/hr IV Q6H [facility] Last Infusion: 01/11/18 05:39 Dose: Infused Potassium Chloride 40 meq/ (Dextrose) 520 mls @ 130 mls/hr IV ONCE ONE Stop: 01/11/18 12:29 Last Admin: 01/11/18 08:50 Dose: 130 mls/hr Metoclopramide HCl (Reglan) 5 mg IV Q8H [facility] Last Admin: 01/11/18 07:47 Dose: 5 mg Ondansetron HCl (Zofran) 4 mg IV Q4HP PRN PRN Reason: Nausea And Vomiting Pantoprazole Sodium (Protonix) 40 mg IV BIDAC [facility] Last Admin: 01/11/18 07:47 Dose: 40 mg Promethazine HCl (Phenergan) 12.5 mg IV Q4HP PRN PRN Reason: Nausea And Vomiting Sodium Chloride (Saline Flush) 10 ml IV UD PRN PRN Reason: FLUSH Last Admin: 01/11/18 05:05 Dose: 10 ml Sodium Chloride (Saline Flush) 10 ml IV Q8 KRISS Last Admin: 01/11/18 05:05 Dose: 10 ml Medical - PN: A/P - Time Spent With Patient Total time spent is greater than 50% in coordination of care (as documented) at patient's floor/unit and/or counseling patient: - Narrative A/P Narrative: 77-year-old female, status post exploratory laparotomy in attempt for ileostomy takedown after prior Clark's procedure last May. Unable to accomplish anastomosis due to friable tissues. Status post exploratory laparotomy. Management per surgery. Still requires delayed closure of abdominal wound likely today. Hospitalist consult for postoperative respiratory failure and mechanical ventilation. s/p exubation, doing well, on room air now, tachypneic today, will give lasix and duonebs, repeat x ray is neg. monitor for response. Possible HCAP PNA off all antibiotics, stable at this time Hypokalemia resolved. Anemia: Hb stable, s/p 2 units prbc. anxiety - depression-chronic pain. on cymbalta, tolerating it well. dvt scd Medical - PN: Qual - VTE Deep Vein Thrombosis/Pulmonary Embolism Present on Admission: No Procedures - Arterial Line Size (Gauge): 20
[2018-01-11] MEDS ORDERED: LACTATED RINGERS 250 ML IV SCH (10:30)
[2018-01-11] MEDS ORDERED: IOPAMIDOL 100 ML BOTTLE IV ONE (11:45)
--- NOTE | 2018-01-11 12:00 | Cat Scan Report ---
CLINICAL INFORMATION: Postsurgical dyspnea. Possible pulmonary embolism COMPARISON: Chest x-rays dated 01/11/2018, 01/10/2018, 01/03/2018, 01/02/2018. TECHNIQUE: Axial images obtained through the chest. 70 mL intravenous contrast was administered, and scanning was performed during pulmonary arterial phase. Sagittally and coronally reformatted images were obtained. MIP reformatted images. FINDINGS: There are moderate bilateral pleural effusions. There is bilateral lower lobe atelectasis or scarring. No parenchymal consolidation. No evidence for pneumonia. No bronchiectasis or significant emphysema. Main pulmonary artery, right pulmonary artery, left pulmonary artery are negative. No lobar, segmental, or subsegmental emboli. Negative examination for pulmonary embolism. There is extensive calcified mediastinal and hilar adenopathy consistent with old granulomatous disease. No axillary adenopathy. No supraclavicular adenopathy. There are bilateral breast implants. No thoracic compression fracture. No rib sternal lesion. There is a nondisplaced fracture at the surgical neck of the right humerus. This may be subacute. IMPRESSION: 1. Negative pulmonary CTA. No pulmonary embolism 2. Moderate bilateral pleural effusions 3. Extensive hilar mediastinal calcification consistent with old granulomatous disease 4. Nondisplaced fracture through the surgical neck of the right humerus The exam was performed using radiation dose optimization techniques including, but not limited to, automated exposure control, adjustment of the mA and/or kV according to patient size and use of iterative reconstruction technique. Interpreted and Authenticated by: Valentin Alanis 01/11/18
--- NOTE | 2018-01-11 12:27 | General Surgery Progress Note ---
Subjective Patient reports: shortness of breath, afebrile, other Narrative: Note initiated : 01/11/18 at 12:22 pm Service Date, if different from initiated Date: [] Patient: Caroline Bellamy 77 y/o F admitted on 12/23/17 for Ileostomy Closure and Colorectal Anastomosis. Chief Complaint: [patient had an uneventful early part of the day but about an hour and a half ago she developed some poorly responsive state with associated hypoxemia with oxygen saturation 82%. She was given 3 L of O2 and her oxygen saturation increased to 96%. Patient was very listless and did not respond to stimuli. She was seen by and evaluated. He did a CTA chest which is negative for pulmonary emboli. The infiltrates of the basilar part of her left lung is on changed. Reportedly the patient became more responsive for a short period of time and was able to ambulate to the bathroom independently and then return to bed and has been sleepy since that time. She awakens and responds appropriately to loud voice. She responds to painful stimuli in her upper and lower extremities. Presently she is clinically stable with O2 saturation 96% on 1 L by nasal cannula.] Objective Temp Pulse Resp BP Pulse Ox 98.1 F 80 22 140/68 93 01/11/18 06:30 01/11/18 08:13 01/11/18 08:13 01/11/18 06:30 01/11/18 06:30 - Additional Data Intake & Output - Last 24 hours: Intake & Output 01/09/18 01/10/18 01/11/18 01/12/18 05:59 05:59 05:59 05:59 Intake Total 1440 / 1440 1290 / 1290 1060 / 1060 100 / 100 Output Total 1460 / 1460 1740 / 1740 1900 / 1900 200 / 200 Balance -20 / -20 -450 / -450 -840 / -840 -100 / -100 Weight 141 lb 136 lb 8 oz 137 lb - General physical appearance well developed, well nourished, no distress - Eyes PERRL, normal ocular movement - ENT normal pinna, normal nares, normal mucosa, no hearing loss, no congestion - Neck no masses, no bruits, trachea midline, no lymphadectomy, no venous distension - Respiratory other (few rhonchi but no wheezes) - Cardiovascular Cardiovascular exam: Present: normal rate and rhythm, RRR, +S1, +S2. Absent: JVD - Abdomen non tender, bowel sounds (present), surgical scars (none), wound (no change in her abdominal incision), masses (none) - Integumentary no rash, no growths, no abnormal pigmentation - Neurologic normal coordination, normal sensation - Musculoskeletal normal gait, normal posture - Psychiatric oriented to time, oriented to person, oriented to place, speech is normal, memory intact - Labs 01/11/18 04:41 01/11/18 04:41 Diabetes panel 01/11/18 Range/Units 04:41 Sodium 138 (133-145) mmol/L Potassium 3.3 (3.3-5.1) mmol/L Chloride 100 (96-108) mmol/L Carbon Dioxide 25 (22-30) mmol/L BUN 8 (8-23) mg/dl Creatinine 0.5 L (0.6-1.1) mg/dl Glucose 99 (70-105) mg/dL Calcium 9.5 (8.6-10.4) mg/dl AST 9 (0-37) U/l ALT < 5 (0-40) U/l Alkaline Phosphatase 73 (39-117) U/L Total Protein 6.4 (5.9-8.4) gm/dL Albumin 3.8 (3.2-5.2) gm/dL Triglycerides 64 (<150) mg/dl Calcium panel 01/11/18 Range/Units 04:41 Calcium 9.5 (8.6-10.4) mg/dl Phosphorus 2.8 (2.7-4.5) mg/dL Albumin 3.8 (3.2-5.2) gm/dL Pituitary panel 01/11/18 Range/Units 04:41 Sodium 138 (133-145) mmol/L Potassium 3.3 (3.3-5.1) mmol/L Chloride 100 (96-108) mmol/L Carbon Dioxide 25 (22-30) mmol/L BUN 8 (8-23) mg/dl Creatinine 0.5 L (0.6-1.1) mg/dl Glucose 99 (70-105) mg/dL Calcium 9.5 (8.6-10.4) mg/dl Adrenal panel 01/11/18 Range/Units 04:41 Sodium 138 (133-145) mmol/L Potassium 3.3 (3.3-5.1) mmol/L Chloride 100 (96-108) mmol/L Carbon Dioxide 25 (22-30) mmol/L BUN 8 (8-23) mg/dl Creatinine 0.5 L (0.6-1.1) mg/dl Glucose 99 (70-105) mg/dL Calcium 9.5 (8.6-10.4) mg/dl Total Bilirubin 0.6 (0.0-1.0) mg/dL AST 9 (0-37) U/l ALT < 5 (0-40) U/l Alkaline Phosphatase 73 (39-117) U/L Total Protein 6.4 (5.9-8.4) gm/dL Albumin 3.8 (3.2-5.2) gm/dL Assessment and Plan (1) Ileostomy status Status: Acute Assessment and plan: STOMA IS WORKING FINE Current Visit: Yes (2) Protein-calorie malnutrition, moderate Status: Acute Assessment and plan: by mouth intake is improving daily Current Visit: No (3) Enterocutaneous fistula Status: Resolved Assessment and plan: advance to diet as tolerated Current Visit: Yes (4) Volume overload Status: Resolved Assessment and plan: BUN is beginning to rise which may suggest intravenous volume contraction. Current Visit: Yes - Time Spent With Patient Total time spent is greater than 50% in coordination of care (as documented) at patient's floor/unit and/or counseling patient:
[2018-01-11 12:45] LABS: Appearance,Urine CLEAR; Bacteria,Urine 0 /hpf (0); Bilirubin,Urine NEG (NEG); Color,Urine COLORLESS; Glucose,Urine (UA) NEGATIVE (NEG); Leukocyte Esterase,Urine NEG /uL (NEG); Mucus,Urine FEW /hpf (0); Protein,Urine NEG (NEG); Specific Gravity,Urine 1.006 (1.000-1.035); Urine Blood NEG mg/dL (<0.03); Urine RBC < 1 /hpf (0-1); Urine Squamous Epithelial Cell < 1 /hpf (0-4); Urine WBC 1 /hpf (0-4); Urobilinogen,Urine NEG (NEG)
[2018-01-11] MEDS: HYDROmorphone 2 MG/ML VIAL IV PRN ×3 (17:12→22:58)
[2018-01-11] MEDS: ALPRAZolam 0.5 MG TABLET PO PRN (22:11)
[2018-01-12] MEDS: METOCLOPRAMIDE 10 MG/2 ML VIAL IV SCH ×4 (00:08→23:37)
[2018-01-12] MEDS: HYDROmorphone 2 MG/ML VIAL IV PRN ×6 (03:28→20:25)
[2018-01-12] MEDS: ACETAMINOPHEN 1,000 MG/100 ML BOTTLE IV PRN ×2 (04:20→21:26)
[2018-01-12] MEDS: PIPERACILLIN SODIUM/TAZOBACTAM 3.375 GM in DEXTROSE 5% IN WATER 50 ML IV SCH ×4 (04:57→21:59)
[2018-01-12] MEDS: 0.9 % SODIUM CHLORIDE 10 ML SYRINGE IV SCH ×3 (05:32→20:26)
[2018-01-12] MEDS: metroNIDAZOLE 500 MG/100 ML BAG IV SCH ×4 (05:32→22:33)
[2018-01-12] MEDS: PANTOPRAZOLE 40 MG VIAL IV SCH ×2 (06:52→17:00)
[2018-01-12] MEDS: DULoxetine 30 MG CAPSULE PO SCH (08:24)
--- NOTE | 2018-01-12 11:36 | Internal Med Progress Note ---
Medical - PN: Subj Patient information: Note initiated : 01/12/18 at 11:30 am Service Date, if different from initiated Date: [] Patient: Caroline Bellamy a 77 y/o F admitted on 12/23/17 for Ileostomy Closure and Colorectal Anastomosis. Chief Complaint: [] Interval history: December 23-Ms. Adiel Cardoso is a 77 year old F with a complex history with hospitalization May 2017 with diverticulitis perforation/peritonitis and prolonged hospital stay. 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 Hospitalization course was complicated by respiratory failure requiring mechanical ventilation and intra-abdominal infection with Pseudomonas. She underwent rehabilitation/TPN and prolonged hospitalization and was gradually recovering. She she now underwent expiratory laparotomy with extensive epidural lysis and small bowel resection. Postoperatively patient was unable to be extubated. Subsequently hospitalist service was consulted and patient was brought into the ICU on mechanical ventilation. patient currently on propofol/fentanyl. No family members available. systolics around 100. Patient has a line. Foleys catheter draining clear urine December 24-patient on mechanical ventilation. Map at 65 on 5 mics Levophed. Improving urine output. On light sedation. Weaning ventilator down to FiO2 35% , ABG 7.47/31/147. chest imaging revealed moderate left and small to moderat bibasilar infiltrate/effusion worsening since previous day. on Zosyn/Flagyl. Continue propofol/fentanyl for sedation. Start sedation holiday in a.m. for possible extubation. Continue weaning vasopressors. December 25- [place] [address]. Off vasopressors, T MAX 100, no chills. No anxiety, responding to verbal commands, on SBT/sedation holiday, Interval chest iamging shows atelectasis and pl effusion. alert. stable renal function. Diminishing urine output. A line and central line no localized bleeding or redness. No telemetry events. Possible extubation today.ABG 7.35/38/96 on 35% FiO2 and PEEP December 26-Successfully extubated yesterday morning. Remained stable overnight. The morning wanting to try to eat or drink something. WBC decreased from 23K to 19K. However, late this morning, developed leakage of bowel contents through part of her abdominal incision. Taken back to the operating room for exploratory laparotomy. Will likely require mechanical ventilation postoperatively. December 27-patient successfully underwent repair of small leak in the distal ileum yesterday. Remained intubated overnight. This morning during sedation vacation and spontaneous breathing trial, patient was saturating well on 35% room air, had good minute ventilation during the breathing trial. She is successfully extubated. We'll later, respirations became labored. She was receiving significant volumes of IV fluid with maintenance as well as supplements being infused. Responded well to low-dose furosemide with improvement in respiratory status. December 28-overnight, had recurrent respiratory distress, tachypnea, labored respirations with rales and wheezes. Responded to further furosemide about 1 AM. Had recurrent respiratory distress about 5:30 this morning. Respirations were labored, while on only 2 L nasal cannula, saturations are dropped from high 90s to low 90s. She had wheezes as well as rales on exam. Received 10 mg of IV furosemide with some urine output and mild improvement, however required BiPAP therapy. Receive further 20 mg of furosemide with brisk diuresis. Remains on BiPAP for respiratory support. Chest x-ray with worsening interstitial infiltrates. Exam also with significant jugular venous distention consistent with volume overload. Has been receiving albumin. December 29-patient continues on BiPAP. She is off for a while this morning, became dyspneic. Improved approximately 1-2 hours after morning furosemide dose. She tends to have more respiratory distress as the furosemide has worn off. Has been receiving furosemide every 8 hours with good diuresis. Renal functions remain stable. At one point was complaining to family that she did not want to keep going with therapy, though seems to improved later in the morning. December 30-on BiPAP most of the night. Urine output responding to 20 mg of Lasix every 6 hours, urine output tails off towards the end. Receiving albumin and Lasix scheduled. Overall respiratory status clinically improved. Changed over to high flow nasal cannula this morning which she is tolerating. She complains of feeling tired, doesn't think she is any better. december 31 Pt seen and examined, no acute overnight events. Patient's chest x-ray shows worsening infiltrate versus ARDS versus pneumonia. Patient is on Zosyn as well as Flagyl. Start on vancomycin IV. She has completed her albumin and Lasix dosing according to the nurse. X-ray chest to rule is worsened. Patient is on 35% FiO2 by high flow nasal cannula. She seems to be tolerating it well. Her oxygen level is maintained with this. The patient definitely is tachypneic. She still complains about significant abdominal pain. Bccnz-vw-vyth ultrasound done IVC reviewed, the patient has complete collapse of the IVC with inspiration. This indicates that the patient does not seem to be in fluid overload other is volume depleted after aggressive diuresis. For now we will just hold off on Lasix and monitor. january 01 Patient seen and examined, no acute overnight events. She did use BiPAP for a while and then went back to her high flow nasal cannula. Chest x-ray shows persistent infiltrates. Clinically she is not volume overloaded. Oxygen requirements are trending down. She does note that she is very tired and wanted to give up overnight but after talking with the family she decided to continue. I do not believe that the patient is end-stage at this point in time, and she has a chance of recovery. Hold off on diuresis for now. Start on Cymbalta 30 mg once a day, they should help her with some anxiety depression as well as chronic aches and pains. Plan of care reviewed with the patient as well as the family. Use BiPAP as much as tolerated. january 02 Pt seen examined, no acute overnight issues, tolerating bipap intermittently had a better night pain is also better she is in better spirits today. family by the bed side She had one episode of shortness of breath yesterday, which improved with duonebs. Her IVC also showed more distention than the previous day, although still collapsing completely. Will keep the patient on low dose of lasix 20mg dailiy to keep her lungs as dry as possible She is oxygenating well, will wean off the hi moon nasal canula today if she is able to. january 03 Pt seen examined, overnight was confused after use of xanasx, this am drowsy, as she had received dilaudid but overall she is stable no complaints when woken up on bipap for now she was sob when she was weaned off the hiflo nasal canula continue same. january 04 pt seen examined, no acute overnight events, pain well controlled, CXR yesterday showed worsening infiltrates, caspofungin started in light of worsening infiltrates yesterday and tracheal aspirate growing anil. Pt off hiflo nasal canula today remains on iv diuresis overall stable 01/05- patient doing well. No overnight events. Diuresing well. Able to get out of bed to chair. Slightly short of breath but on room air. Much improved lymphedema. Tolerating diet advancement per surgery. On supplemental TPN currently being weaned. No overnight fever chills or concerns per staff. Stable hemodynamics and labs.hemoglobin 8.2 01/06-ppatient doing better. Transfer to medical floor. On oral diet per surgery. TPN currently being weaned. No overnight fever chills nausea vomiting. Anticipate surgical closure of the abdominal incision over the next few days. Managed by surgery. No further recommendations from hospitalist service. Lower Lasix dose to once daily 01/07- patient doing well. Ambulating with assistance. Tolerating diet advancement. white count down to 9.2 however hemoglobin at 6.7. No overnight events or concerns per staff. T-Max 99. Scheduled 2 units PRBC transfusion. stool guaiac negative. No source of occult bleed. Continue monitoring. Likely secondary to marrow suppression. 01/08-patient doing remarkably better. Hemoglobin 10.2. White count down to 8.4. On room air. Ambulating and able to transfer from bed to chair with minimal assistance. In good spirits. Discontinue vancomycin and caspofungin. on Zosyn/Flagyl per surgery. No overnight events or concerns per staff 01/09 Patient doing well, hemoglobin stable, white count normal, potassium 3.4 being replaced. Patient has no acute complaints or concerns. She is able to tolerate some food does not have much hungry today. Otherwise she remains on broad-spectrum antibiotics as per surgery. 01/10 Pt seen examined, no acute issues, no acute complaints, labs stable, waiting for closure surgery in AM no need for lasix today. 01/11 Pt seen examined, no acute overnight issues, this AM noted to be bit short of breath, but pt denies any issues, some nausea and vomiting reported by staff duoneb x 1 given, lasix x 1 given, repeat CXR is stable monitor for now. plan for surgery this afternoon. 01/12 Patient seen examined, no acute overnight events, this a.m. was sitting comfortably in the bed mental status was clear was able to tolerate p.o. diet well. Labs reviewed unremarkable. Yesterday she was hypoxic and did have some mental status changes workup was all negative. Likely she was just tired. Awaiting surgery for secondary closure of her abdominal incision. Pertinent ROS: Denies headache, dizziness Denies chest pain, palpitations Denies cough or shortness of breath Denies abdominal pain, nausea or vomiting. - Constitutional Vitals: Vital Signs Temp Pulse Resp BP Pulse Ox 98.4 F 70 20 125/64 91 01/12/18 10:27 01/12/18 08:15 01/12/18 10:27 01/12/18 10:27 01/12/18 10:27 Period Temp Pulse Resp BP Sys/[place] Pulse Ox Last 24 Hr 96.3 F-98.6 F 70-88 18-24 110-125/58-76 91-96 Intake and Output 01/11/18 01/12/18 01/12/18 21:59 05:59 13:59 Intake Total 250 / 250 500 / 500 710 / 710 Output Total 75 / 75 455 / 455 Balance 175 / 175 45 / 45 710 / 710 Weight 137 lb 137 lb Patient Weight 01/13/18 05:59 Weight 137 lb Intake & Output: Intake & Output 01/11/18 01/12/18 01/12/18 21:59 05:59 13:59 Intake Total 250 / 250 500 / 500 710 / 710 Output Total 75 / 75 455 / 455 Balance 175 / 175 45 / 45 710 / 710 Weight 137 lb 137 lb Intake: IV 250 / 250 150 / 150 150 / 150 Zosyn 3.375 gm In Dextrose 5% 50 / 50 50 / 50 50 / 50 in Water 50 ml @ 100 mls/hr IV Q6H [facility] Rx#:[id number] Oral 350 / 350 560 / 560 Output: Drainage 5 / 5 RIDDHI A 3 / 3 RDIDHI B 2 / 2 Void Amount 375 / 375 Stool 75 / 75 75 / 75 Other: Meal Breakfast Percent of Meal Consumed 50% Exam: Constitutional; Afebrile, cooperative, alert, not in distress. Eyes- No icterus, , No periorbital swelling Ears- Ext ear normal, hearing normal to conversation. Neck- Midline trachea, supple Respiratory system: Air Entry equal on both sides, No crackles or wheezing, no rhonchi. CVS- Rate rhythm regular, S1,S2 heard, no gallop, no rub. FRAME OPENER- AOOx3, moving all extremities, no gross focal deficit noted. Medical - PN: Obj Da - Labs CBC & Chem 7: 01/11/18 04:41 01/11/18 04:41 Labs: Abnormal Lab Results 01/11/18 01/11/18 01/10/18 04:41 04:41 04:36 RBC 3.99 L Hgb 10.5 L Hct 32.3 L RDW 17.8 H Lymph % (Auto) 11.5 L Lymph # (Auto) 0.9 L Anson # (Auto) Creatinine 0.5 L GGT 79 H 88 H 01/10/18 04:36 RBC Hgb 10.8 L Hct 32.8 L RDW 17.7 H Lymph % (Auto) 11.0 L Lymph # (Auto) 1.1 L Anson # (Auto) 1.1 H Creatinine GGT Meds: Medications Albuterol/Ipratropium (Duoneb) 3 ml NEB Q6HP PRN PRN Reason: Wheezing Last Admin: 01/11/18 08:12 Dose: 3 ml Alprazolam (Xanax) 0.5 mg PO Q6HP PRN PRN Reason: Anxiety Last Admin: 01/11/18 22:11 Dose: 0.5 mg Artificial Tears (Artificial Tears Ophth Drops) 1 gtt OU QIDP PRN PRN Reason: Dry Eye(s) Dextrose (Dextrose 50%) 25 ml IV UD PRN PRN Reason: Hypoglycemia Duloxetine HCl (Cymbalta) 30 mg PO DAILY [facility] Last Admin: 01/12/18 08:24 Dose: 30 mg Glucose Oxid/Lactoperoxid/Muramidas (Biotene) 1 each TOPICAL PRN PRN PRN Reason: Dry Mouth Heparin Sodium (Porcine) (Heparin Flush) 2 ml IV Q12 KRISS Last Admin: 01/12/18 08:24 Dose: 2 ml Hydromorphone HCl (Dilaudid) 1 mg IV Q2HP PRN PRN Reason: PAIN LEVEL > 6 Last Admin: 01/12/18 09:11 Dose: 1 mg Heparin Sodium/Sodium Chloride (Heparin/Ns) 500 mls @ 0 mls/hr IV .Q0M KRISS; KVO PRN Reason: Protocol Metronidazole (Flagyl) 500 mg in 100 mls @ 100 mls/hr IV Q6H [facility]ISS Last Infusion: 01/12/18 06:53 Dose: Infused Acetaminophen (Ofirmev) 1,000 mg in 100 mls @ 200 mls/hr IV Q6HP PRN PRN Reason: Pain Last Admin: 01/12/18 04:20 Dose: 200 mls/hr Piperacillin Sod/Tazobactam (Sod 3.375 gm/ Dextrose) 50 mls @ 100 mls/hr IV Q6H [facility] Last Infusion: 01/12/18 06:30 Dose: Infused Metoclopramide HCl (Reglan) 5 mg IV Q8H [facility] Last Admin: 01/12/18 08:24 Dose: 5 mg Ondansetron HCl (Zofran) 4 mg IV Q4HP PRN PRN Reason: Nausea And Vomiting Last Admin: 01/11/18 09:45 Dose: 4 mg Pantoprazole Sodium (Protonix) 40 mg IV BIDAC [facility] Last Admin: 01/12/18 06:52 Dose: 40 mg Promethazine HCl (Phenergan) 12.5 mg IV Q4HP PRN PRN Reason: Nausea And Vomiting Sodium Chloride (Saline Flush) 10 ml IV UD PRN PRN Reason: FLUSH Last Admin: 01/11/18 05:05 Dose: 10 ml Sodium Chloride (Saline Flush) 10 ml IV Q8 KRISS Last Admin: 01/12/18 05:32 Dose: 10 ml Medical - PN: A/P - Time Spent With Patient Total time spent is greater than 50% in coordination of care (as documented) at patient's floor/unit and/or counseling patient: - Narrative A/P Narrative: 77-year-old female, status post exploratory laparotomy in attempt for ileostomy takedown after prior Clark's procedure last May. Unable to accomplish anastomosis due to friable tissues. Status post exploratory laparotomy. Management per surgery. Still requires delayed closure of abdominal wound. Hospitalist consult for postoperative respiratory failure and mechanical ventilation. s/p exubation, doing well, on room air now, intermittently needs 1 L oxygen if not doing her incentive spirometer. CTA for pe is neg, no e/o infection. Hypokalemia resolved. Anemia: Hb stable, s/p 2 units prbc anxiety - depression-chronic pain. on cymbalta, tolerating it well. dvt scd Medical - PN: Qual - VTE Deep Vein Thrombosis/Pulmonary Embolism Present on Admission: No Procedures - Arterial Line Size (Gauge): 20
[2018-01-12 12:17] LABS: Basophils # (Auto) 0 K/mcL (0.0-0.3); Basophils % (Auto) 0.5 % (0.0-2.0); Eosinophils # (Auto) 0.1 K/mcL (0.0-0.7); Eosinophils % (Auto) 2.3 % (0.0-7.0); Granulocytes % (Auto) 76.2 % (38.0-78.0); Lymphocytes # (Auto) 0.7 K/mcL (1.5-4.8); Lymphocytes % (Auto) 10.5 % (15.5-49.0); Mean Cell Volume 81.2 fL (80.0-100.0); Mean Corpuscular HGB Conc 32.6 g/dL (31.0-36.0); Mean Corpuscular Hemoglobin 26.4 pg (26.0-34.0); Monocytes # (Auto) 0.7 K/mcL (0.1-0.9); Monocytes % (Auto) 10.5 % (1.0-12.0); Platelet Count 313 K/mcL (140-440); RBC 3.97 M/mcL (4.00-5.20); Red Cell Distribution Width 17.8 % (11.5-14.5)
--- NOTE | 2018-01-12 13:31 | General Surgery Progress Note ---
Subjective Patient reports: feels better, pain is less, tolerating a regular diet, flatus, bowel movement, afebrile Narrative: Note initiated : 01/12/18 at 1:28 pm Service Date, if different from initiated Date: [] Patient: Caroline Bellamy 77 y/o F admitted on 12/23/17 for Ileostomy Closure and Colorectal Anastomosis. Chief Complaint: [Patient is totally changed from yesterday. She is bright and alert and very much aware. She is very active and has been up and walking in the room. Her oxygen saturations on room air has been 94-96%. She does not have any complaints. She states that yesterday she was tired and does not remember much.] Objective Temp Pulse Resp BP Pulse Ox 98.4 F 70 20 125/64 91 01/12/18 10:27 01/12/18 08:15 01/12/18 10:27 01/12/18 10:27 01/12/18 10:27 - Additional Data Intake & Output - Last 24 hours: Intake & Output 01/10/18 01/11/18 01/12/18 01/13/18 05:59 05:59 05:59 05:59 Intake Total 1290 / 1290 1060 / 1060 1150 / 1150 810 / 810 Output Total 1740 / 1740 1900 / 1900 1905 / 1905 Balance -450 / -450 -840 / -840 -755 / -755 810 / 810 Weight 136 lb 8 oz 137 lb 137 lb 137 lb - General physical appearance well developed, well nourished, no distress - Eyes PERRL, normal ocular movement - ENT normal pinna, normal nares, normal mucosa, no hearing loss, no congestion - Neck no masses, no bruits, trachea midline, no lymphadectomy, no venous distension - Respiratory normal expansion, normal respiratory effort, clear to auscultation - Cardiovascular Cardiovascular exam: Present: normal rate and rhythm, RRR, +S1, +S2. Absent: JVD - Integumentary no rash, no growths, no abnormal pigmentation - Neurologic normal coordination, normal sensation - Musculoskeletal normal gait, normal posture - Psychiatric oriented to time, oriented to person, oriented to place, speech is normal, memory intact - Labs 01/12/18 10:59 01/11/18 04:41 Assessment and Plan (1) Ileostomy status Status: Acute Assessment and plan: STOMA IS WORKING FINE Current Visit: Yes (2) Protein-calorie malnutrition, moderate Status: Acute Assessment and plan: by mouth intake is improving daily Current Visit: No (3) Enterocutaneous fistula Status: Resolved Assessment and plan: advance to diet; as tolerated patient will be rescheduled for closure of her abdominal incision Tomorrow Current Visit: Yes (4) Volume overload Status: Resolved Assessment and plan: BUN is beginning to rise which may suggest intravenous volume contraction. Current Visit: Yes - Time Spent With Patient Total time spent is greater than 50% in coordination of care (as documented) at patient's floor/unit and/or counseling patient:
[2018-01-12 15:50] LABS: ALT/SGPT 5 U/l (0-40); Albumin 3.7 gm/dL (3.2-5.2); Albumin/Globulin Ratio 1.3 (1.0-2.3); Alkaline Phosphatase 69 U/L (39-117); Bilirubin,Direct < 0.2 mg/dL (0.0-0.3); Blood Urea Nitrogen 9 mg/dl (8-23); Gamma Glutamyl Transpeptidase 78 U/L (5-36); Uric Acid 3.8 mg/dL (2.5-8.0)
[2018-01-12] MEDS: ALPRAZolam 0.5 MG TABLET PO PRN (20:25)
[2018-01-12] MEDS: IPRATROPIUM/ALBUTEROL 3 ML AMPUL.NEB NEB PRN (22:37)
[2018-01-12] MEDS: 0.9 % SODIUM CHLORIDE 10 ML SYRINGE IV PRN (23:38)
[2018-01-13] MEDS: PIPERACILLIN SODIUM/TAZOBACTAM 3.375 GM in DEXTROSE 5% IN WATER 50 ML IV SCH ×4 (05:26→23:35)
[2018-01-13] MEDS: 0.9 % SODIUM CHLORIDE 10 ML SYRINGE IV SCH ×3 (05:26→22:04)
[2018-01-13] MEDS: metroNIDAZOLE 500 MG/100 ML BAG IV SCH ×2 (06:02→14:11)
[2018-01-13] MEDS: HYDROmorphone 2 MG/ML VIAL IV PRN ×3 (06:48→16:54)
[2018-01-13] MEDS: PANTOPRAZOLE 40 MG VIAL IV SCH (06:48)
[2018-01-13] MEDS: ACETAMINOPHEN 1,000 MG/100 ML BOTTLE IV PRN (08:57)
[2018-01-13] MEDS: METOCLOPRAMIDE 10 MG/2 ML VIAL IV SCH (09:18)
[2018-01-13] MEDS ORDERED: PHENYLEPHRINE 10 MG/ML VIAL IV ONE (10:40)
[2018-01-13] MEDS ORDERED: LIDOCAINE HCL/PF 100 MG/5 ML SYRINGE IV ONE (10:40)
[2018-01-13] MEDS ORDERED: ONDANSETRON 4 MG/2 ML VIAL IV ONE (10:40)
[2018-01-13] MEDS ORDERED: DEXAMETHASONE 10 MG/ML VIAL IV ONE (10:40)
[2018-01-13] MEDS ORDERED: KETAMINE 100 MG/ML ML IV ONE (10:40)
[2018-01-13] MEDS ORDERED: IPRATROPIUM/ALBUTEROL 3 ML AMPUL.NEB NEB PRN ×2 (11:14→12:35)
[2018-01-13] MEDS ORDERED: LACTATED RINGERS 250 ML IV PRN (11:14)
[2018-01-13] MEDS ORDERED: NALOXONE HCL 0.4 MG/ML VIAL IV PRN (11:14)
[2018-01-13] MEDS ORDERED: FLUMAZENIL 0.1 MG/ML ML IV PRN (11:14)
[2018-01-13] MEDS ORDERED: ONDANSETRON 4 MG/2 ML VIAL IV PRN ×2 (11:14→12:35)
[2018-01-13] MEDS ORDERED: PROMETHAZINE 25 MG/ML VIAL IV PRN ×2 (11:14→12:35)
[2018-01-13] MEDS ORDERED: fentaNYL 100 MCG/2 ML VIAL IV PRN (11:14)
[2018-01-13] MEDS ORDERED: LACTATED RINGERS 1,000 ML IV SCH (11:15)
--- NOTE | 2018-01-13 11:51 | Brief Operative Note ---
Date of procedure: 01/13/18 Pre-op diagnosis: open abdominal incision Post-op diagnosis: other (open abdominal incision) Procedure: debridement and secondary closure of open abdominal incision--17cm Grafts/Implants: No Anesthesia: GLMA Findings: mild fascial necrosis fibrinous debris of entire incision Complications: none Surgeon: Amada Eubanks Specimens Removed/Pathology: none sent (cultures of wound) Condition: stable Disposition: PACU
[2018-01-13] MEDS ORDERED: BACITRACIN 50,000 UNIT VIAL IR ONE (12:20)
[2018-01-13] MEDS ORDERED: POLYVINYL ALCOHOL OPHTH DROPS 15ML BOTTLE OU PRN (12:35)
[2018-01-13] MEDS ORDERED: ACETAMINOPHEN 1,000 MG/100 ML BOTTLE IV PRN (12:35)
[2018-01-13] MEDS: DULoxetine 30 MG CAPSULE PO SCH (14:11)
--- NOTE | 2018-01-13 14:20 | Internal Med Progress Note ---
Medical - PN: Subj Patient information: Note initiated : 01/13/18 at 2:18 pm Service Date, if different from initiated Date: [] Patient: Caroline Bellamy a 77 y/o F admitted on 12/23/17 for Ileostomy Closure and Colorectal Anastomosis. Chief Complaint: [] Interval history: December 23-Ms. Adiel Cardoso is a 77 year old F with a complex history with hospitalization May 2017 with diverticulitis perforation/peritonitis and prolonged hospital stay. 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 Hospitalization course was complicated by respiratory failure requiring mechanical ventilation and intra-abdominal infection with Pseudomonas. She underwent rehabilitation/TPN and prolonged hospitalization and was gradually recovering. She she now underwent expiratory laparotomy with extensive epidural lysis and small bowel resection. Postoperatively patient was unable to be extubated. Subsequently hospitalist service was consulted and patient was brought into the ICU on mechanical ventilation. patient currently on propofol/fentanyl. No family members available. systolics around 100. Patient has a line. Foleys catheter draining clear urine December 24-patient on mechanical ventilation. Map at 65 on 5 mics Levophed. Improving urine output. On light sedation. Weaning ventilator down to FiO2 35% , ABG 7.47/31/147. chest imaging revealed moderate left and small to moderat bibasilar infiltrate/effusion worsening since previous day. on Zosyn/Flagyl. Continue propofol/fentanyl for sedation. Start sedation holiday in a.m. for possible extubation. Continue weaning vasopressors. December 25- [place] [id number]. Off vasopressors, T MAX 100, no chills. No anxiety, responding to verbal commands, on SBT/sedation holiday, Interval chest iamging shows atelectasis and pl effusion. alert. stable renal function. Diminishing urine output. A line and central line no localized bleeding or redness. No telemetry events. Possible extubation today.ABG 7.35/38/96 on 35% FiO2 and PEEP December 26-Successfully extubated yesterday morning. Remained stable overnight. The morning wanting to try to eat or drink something. WBC decreased from 23K to 19K. However, late this morning, developed leakage of bowel contents through part of her abdominal incision. Taken back to the operating room for exploratory laparotomy. Will likely require mechanical ventilation postoperatively. December 27-patient successfully underwent repair of small leak in the distal ileum yesterday. Remained intubated overnight. This morning during sedation vacation and spontaneous breathing trial, patient was saturating well on 35% room air, had good minute ventilation during the breathing trial. She is successfully extubated. We'll later, respirations became labored. She was receiving significant volumes of IV fluid with maintenance as well as supplements being infused. Responded well to low-dose furosemide with improvement in respiratory status. December 28-overnight, had recurrent respiratory distress, tachypnea, labored respirations with rales and wheezes. Responded to further furosemide about 1 AM. Had recurrent respiratory distress about 5:30 this morning. Respirations were labored, while on only 2 L nasal cannula, saturations are dropped from high 90s to low 90s. She had wheezes as well as rales on exam. Received 10 mg of IV furosemide with some urine output and mild improvement, however required BiPAP therapy. Receive further 20 mg of furosemide with brisk diuresis. Remains on BiPAP for respiratory support. Chest x-ray with worsening interstitial infiltrates. Exam also with significant jugular venous distention consistent with volume overload. Has been receiving albumin. December 29-patient continues on BiPAP. She is off for a while this morning, became dyspneic. Improved approximately 1-2 hours after morning furosemide dose. She tends to have more respiratory distress as the furosemide has worn off. Has been receiving furosemide every 8 hours with good diuresis. Renal functions remain stable. At one point was complaining to family that she did not want to keep going with therapy, though seems to improved later in the morning. December 30-on BiPAP most of the night. Urine output responding to 20 mg of Lasix every 6 hours, urine output tails off towards the end. Receiving albumin and Lasix scheduled. Overall respiratory status clinically improved. Changed over to high flow nasal cannula this morning which she is tolerating. She complains of feeling tired, doesn't think she is any better. december 31 Pt seen and examined, no acute overnight events. Patient's chest x-ray shows worsening infiltrate versus ARDS versus pneumonia. Patient is on Zosyn as well as Flagyl. Start on vancomycin IV. She has completed her albumin and Lasix dosing according to the nurse. X-ray chest to rule is worsened. Patient is on 35% FiO2 by high flow nasal cannula. She seems to be tolerating it well. Her oxygen level is maintained with this. The patient definitely is tachypneic. She still complains about significant abdominal pain. [id number] ultrasound done IVC reviewed, the patient has complete collapse of the IVC with inspiration. This indicates that the patient does not seem to be in fluid overload other is volume depleted after aggressive diuresis. For now we will just hold off on Lasix and monitor. january 01 Patient seen and examined, no acute overnight events. She did use BiPAP for a while and then went back to her high flow nasal cannula. Chest x-ray shows persistent infiltrates. Clinically she is not volume overloaded. Oxygen requirements are trending down. She does note that she is very tired and wanted to give up overnight but after talking with the family she decided to continue. I do not believe that the patient is end-stage at this point in time, and she has a chance of recovery. Hold off on diuresis for now. Start on Cymbalta 30 mg once a day, they should help her with some anxiety depression as well as chronic aches and pains. Plan of care reviewed with the patient as well as the family. Use BiPAP as much as tolerated. january 02 Pt seen examined, no acute overnight issues, tolerating bipap intermittently had a better night pain is also better she is in better spirits today. family by the bed side She had one episode of shortness of breath yesterday, which improved with duonebs. Her IVC also showed more distention than the previous day, although still collapsing completely. Will keep the patient on low dose of lasix 20mg dailiy to keep her lungs as dry as possible She is oxygenating well, will wean off the hi moon nasal canula today if she is able to. january 03 Pt seen examined, overnight was confused after use of xanasx, this am drowsy, as she had received dilaudid but overall she is stable no complaints when woken up on bipap for now she was sob when she was weaned off the hiflo nasal canula continue same. january 04 pt seen examined, no acute overnight events, pain well controlled, CXR yesterday showed worsening infiltrates, caspofungin started in light of worsening infiltrates yesterday and tracheal aspirate growing anil. Pt off hiflo nasal canula today remains on iv diuresis overall stable 01/05- patient doing well. No overnight events. Diuresing well. Able to get out of bed to chair. Slightly short of breath but on room air. Much improved lymphedema. Tolerating diet advancement per surgery. On supplemental TPN currently being weaned. No overnight fever chills or concerns per staff. Stable hemodynamics and labs.hemoglobin 8.2 01/06-ppatient doing better. Transfer to medical floor. On oral diet per surgery. TPN currently being weaned. No overnight fever chills nausea vomiting. Anticipate surgical closure of the abdominal incision over the next few days. Managed by surgery. No further recommendations from hospitalist service. Lower Lasix dose to once daily 01/07- patient doing well. Ambulating with assistance. Tolerating diet advancement. white count down to 9.2 however hemoglobin at 6.7. No overnight events or concerns per staff. T-Max 99. Scheduled 2 units PRBC transfusion. stool guaiac negative. No source of occult bleed. Continue monitoring. Likely secondary to marrow suppression. 01/08-patient doing remarkably better. Hemoglobin 10.2. White count down to 8.4. On room air. Ambulating and able to transfer from bed to chair with minimal assistance. In good spirits. Discontinue vancomycin and caspofungin. on Zosyn/Flagyl per surgery. No overnight events or concerns per staff 01/09 Patient doing well, hemoglobin stable, white count normal, potassium 3.4 being replaced. Patient has no acute complaints or concerns. She is able to tolerate some food does not have much hungry today. Otherwise she remains on broad-spectrum antibiotics as per surgery. 01/10 Pt seen examined, no acute issues, no acute complaints, labs stable, waiting for closure surgery in AM no need for lasix today. 01/11 Pt seen examined, no acute overnight issues, this AM noted to be bit short of breath, but pt denies any issues, some nausea and vomiting reported by staff duoneb x 1 given, lasix x 1 given, repeat CXR is stable monitor for now. plan for surgery this afternoon. 01/12 Patient seen examined, no acute overnight events, this a.m. was sitting comfortably in the bed mental status was clear was able to tolerate p.o. diet well. Labs reviewed unremarkable. Yesterday she was hypoxic and did have some mental status changes workup was all negative. Likely she was just tired. Awaiting surgery for secondary closure of her abdominal incision. 01/13 pt seen, no acute overnight events, on 1-2 L oxygen, in bed comfortable plan for surgery today pt does not endrose any issues Incentive spirometery only 500cc possible, encouraged regular use. Pertinent ROS: Denies headache, dizziness Denies chest pain, palpitations Denies cough or shortness of breath Denies abdominal pain, nausea or vomiting. - Constitutional Vitals: Vital Signs Temp Pulse Resp BP Pulse Ox 99.6 F H 75 20 118/61 95 01/13/18 12:26 01/13/18 12:26 01/13/18 12:26 01/13/18 12:26 01/13/18 12:26 Period Temp Pulse Resp BP Sys/[place] Pulse Ox Last 24 Hr 98.1 F-99.6 F 74-99 16-20 98-134/49-74 94-98 Intake and Output 01/13/18 01/13/18 01/13/18 05:59 13:59 21:59 Intake Total 625 / 625 950 / 950 Output Total 200 / 200 390 / 390 Balance 425 / 425 560 / 560 Intake & Output: Intake & Output 01/13/18 01/13/18 01/13/18 05:59 13:59 21:59 Intake Total 625 / 625 950 / 950 Output Total 200 / 200 390 / 390 Balance 425 / 425 560 / 560 Intake: IV 150 / 150 150 / 150 Zosyn 3.375 gm In Dextrose 5% 50 / 50 50 / 50 in Water 50 ml @ 100 mls/hr IV Q6H [facility] Rx#:[id number] Oral 475 / 475 IV - Manual Only 800 / 800 Output: Drainage 0 / 0 RIDDHI A 0 / 0 RIDDHI B 0 / 0 Void Amount 200 / 200 275 / 275 Stool 100 / 100 Estimated Blood Loss Exam: Constitutional; Afebrile, cooperative, alert, not in distress. Eyes- No icterus, , No periorbital swelling Ears- Ext ear normal, hearing normal to conversation. Neck- Midline trachea, supple Respiratory system: Air Entry equal on both sides, mild basilar crackles noted. CVS- Rate rhythm regular, S1,S2 heard, no gallop, no rub. BEATER TENDER- AOOx3, moving all extremities, no gross focal deficit noted. Medical - PN: Obj Da - Labs CBC & Chem 7: 01/12/18 10:59 01/12/18 10:59 Labs: Abnormal Lab Results 01/12/18 01/12/18 01/11/18 10:59 10:59 04:41 RBC 3.97 L Hgb 10.5 L Hct 32.2 L RDW 17.8 H Lymph % (Auto) 10.5 L Lymph # (Auto) 0.7 L Creatinine 0.5 L GGT 78 H 79 H 01/11/18 04:41 RBC 3.99 L Hgb 10.5 L Hct 32.3 L RDW 17.8 H Lymph % (Auto) 11.5 L Lymph # (Auto) 0.9 L Creatinine GGT Meds: Medications Albuterol/Ipratropium (Duoneb) 3 ml NEB Q6HP PRN PRN Reason: Wheezing Artificial Tears (Artificial Tears Ophth Drops) 1 gtt OU QIDP PRN PRN Reason: Dry Eye(s) Duloxetine HCl (Cymbalta) 30 mg PO DAILY [facility] Hydromorphone HCl (Dilaudid) 1 mg IV Q2HP PRN PRN Reason: PAIN LEVEL > 6 Acetaminophen (Ofirmev) 1,000 mg in 100 mls @ 200 mls/hr IV Q6HP PRN PRN Reason: Pain Piperacillin Sod/Tazobactam (Sod 3.375 gm/ Dextrose) 50 mls @ 100 mls/hr IV Q6H [facility] Ondansetron HCl (Zofran) 4 mg IV Q4HP PRN PRN Reason: Nausea And Vomiting Pantoprazole Sodium (Protonix) 40 mg IV BIDAC [facility] Promethazine HCl (Phenergan) 12.5 mg IV Q4HP PRN PRN Reason: Nausea And Vomiting Sodium Chloride (Saline Flush) 10 ml IV Q8 [facility] Medical - PN: A/P - Time Spent With Patient Total time spent is greater than 50% in coordination of care (as documented) at patient's floor/unit and/or counseling patient: - Narrative A/P Narrative: 77-year-old female, status post exploratory laparotomy in attempt for ileostomy takedown after prior Clark's procedure last May. Unable to accomplish anastomosis due to friable tissues. Status post exploratory laparotomy. Management per surgery. plan for delayed closure today. HYpoxic resp failure: post op, secondary to fluid overload, and pna, s/p treatment, s/p mech vent and bipap. Now on room air, intermitently needs 1-2 L oxygen via nasal canula Hypokalemia resolved. Anemia: Hb stable, s/p 2 units prbc anxiety - depression-chronic pain. on Cymbalta, tolerating it well. dvt scd Medical - PN: Qual - VTE Deep Vein Thrombosis/Pulmonary Embolism Present on Admission: No Procedures - Arterial Line Size (Gauge): 20
[2018-01-13] MEDS ORDERED: PANTOPRAZOLE 40 MG VIAL IV SCH (17:00)
[2018-01-13] MEDS ORDERED: PANTOPRAZOLE 40 MG TABLET PO SCH (17:00)
[2018-01-13] MEDS ORDERED: HYDROmorphone 2 MG/ML VIAL IV PRN (18:50)
[2018-01-13] MEDS: oxyCODONE/APAP 10/325MG TABLET PO PRN ×2 (19:26→23:34)
[2018-01-13] MEDS: PANTOPRAZOLE 40 MG TABLET PO SCH (19:27)
[2018-01-13] MEDS: CELECOXIB 100 MG CAPSULE PO SCH ×2 (20:30→22:03)
[2018-01-13] MEDS ORDERED: ZOLPIDEM 5 MG TABLET PO PRN (21:55)
[2018-01-13] MEDS ORDERED: ZOLPIDEM 5 MG TABLET ONE (22:00)
[2018-01-14] MEDS: 0.9 % SODIUM CHLORIDE 10 ML SYRINGE IV SCH ×3 (04:58→21:41)
[2018-01-14] MEDS: PIPERACILLIN SODIUM/TAZOBACTAM 3.375 GM in DEXTROSE 5% IN WATER 50 ML IV SCH ×4 (04:58→23:04)
[2018-01-14] MEDS: oxyCODONE/APAP 10/325MG TABLET PO PRN ×5 (05:01→21:35)
[2018-01-14] MEDS: PANTOPRAZOLE 40 MG TABLET PO SCH ×2 (08:37→17:39)
[2018-01-14] MEDS: DULoxetine 30 MG CAPSULE PO SCH (08:37)
[2018-01-14] MEDS: CELECOXIB 100 MG CAPSULE PO SCH (08:38)
[2018-01-14] MEDS ORDERED: ALPRAZolam 0.5 MG TABLET PO PRN (13:06)
--- NOTE | 2018-01-14 13:49 | General Surgery Progress Note ---
Subjective Patient reports: feels better, pain is less, tolerating a regular diet, flatus, bowel movement, afebrile Narrative: Note initiated : 01/14/18 at 1:47 pm Service Date, if different from initiated Date: [] Patient: Caroline Bellamy 77 y/o F admitted on 12/23/17 for Ileostomy Closure and Colorectal Anastomosis. Chief Complaint: [Patient is stable. She has some increased anxiety and complaining of being hot but she is afebrile. She complains of shortness of breath but her O2 saturation is 97% on 1 L of oxygen by nasal cannula. She appears to be anxious but she is not in any acute distress. After talking with her for a few minutes the patient was laughing and states that she felt fine. Exam reveals no abnormality except for some drainage on her incision.] Objective Temp Pulse Resp BP Pulse Ox 98.0 F 82 22 110/60 92 01/14/18 12:43 01/14/18 12:43 01/14/18 12:43 01/14/18 11:32 01/14/18 12:43 - Additional Data Intake & Output - Last 24 hours: Intake & Output 01/12/18 01/13/18 01/14/18 01/15/18 05:59 05:59 05:59 05:59 Intake Total 1250 / 1250 2335 / 2335 1850 / 1850 770 / 770 Output Total 1905 / 1905 679 / 679 965 / 965 200 / 200 Balance -655 / -655 1656 / 1656 885 / 885 570 / 570 Weight 137 lb 137 lb 137 lb - General physical appearance well developed, well nourished, no distress, severe distress - Eyes PERRL, normal ocular movement - ENT normal pinna - Neck no masses, no bruits, trachea midline, no lymphadectomy, no venous distension - Respiratory normal expansion, normal respiratory effort, clear to auscultation, other (Good air movement bilaterally without wheezes rhonchi) - Cardiovascular Cardiovascular exam: Present: normal rate and rhythm, JVD, +S1, +S2. Absent: tachycardia - Abdomen non tender, bowel sounds (present), surgical scars (none), wound (Incision looks good except for some bloody drainage), masses (none) - Genitourinary normal external genitalia, normal perineum - Rectum no hemorrhoids - Integumentary no rash, no growths, no abnormal pigmentation - Neurologic normal coordination, normal sensation - Musculoskeletal normal gait, normal posture - Psychiatric oriented to time, oriented to person, oriented to place, speech is normal, memory intact - Labs 01/12/18 10:59 01/12/18 10:59 Assessment and Plan (1) Ileostomy status Status: Acute Assessment and plan: STOMA IS WORKING FINE Current Visit: Yes (2) Protein-calorie malnutrition, moderate Status: Acute Assessment and plan: by mouth intake is improving daily Current Visit: No (3) Enterocutaneous fistula Status: Resolved Assessment and plan: advance to diet; as tolerated patient will be rescheduled for closure of her abdominal incision Tomorrow Current Visit: Yes (4) Volume overload Status: Resolved Assessment and plan: BUN is beginning to rise which may suggest intravenous volume contraction. Current Visit: Yes - Time Spent With Patient Total time spent is greater than 50% in coordination of care (as documented) at patient's floor/unit and/or counseling patient:
--- NOTE | 2018-01-14 20:22 | Internal Med Progress Note ---
Medical - PN: Subj Patient information: Note initiated : 01/14/18 at 8:21 pm Service Date, if different from initiated Date: [] Patient: Caroline Bellamy a 77 y/o F admitted on 12/23/17 for Ileostomy Closure and Colorectal Anastomosis. Chief Complaint: [] Interval history: December 23-Ms. Adiel Cardoso is a 77 year old F with a complex history with hospitalization May 2017 with diverticulitis perforation/peritonitis and prolonged hospital stay. 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 Hospitalization course was complicated by respiratory failure requiring mechanical ventilation and intra-abdominal infection with Pseudomonas. She underwent rehabilitation/TPN and prolonged hospitalization and was gradually recovering. She she now underwent expiratory laparotomy with extensive epidural lysis and small bowel resection. Postoperatively patient was unable to be extubated. Subsequently hospitalist service was consulted and patient was brought into the ICU on mechanical ventilation. patient currently on propofol/fentanyl. No family members available. systolics around 100. Patient has a line. Foleys catheter draining clear urine December 24-patient on mechanical ventilation. Map at 65 on 5 mics Levophed. Improving urine output. On light sedation. Weaning ventilator down to FiO2 35% , ABG 7.47/31/147. chest imaging revealed moderate left and small to moderat bibasilar infiltrate/effusion worsening since previous day. on Zosyn/Flagyl. Continue propofol/fentanyl for sedation. Start sedation holiday in a.m. for possible extubation. Continue weaning vasopressors. December 25- [place] [address]. Off vasopressors, T MAX 100, no chills. No anxiety, responding to verbal commands, on SBT/sedation holiday, Interval chest iamging shows atelectasis and pl effusion. alert. stable renal function. Diminishing urine output. A line and central line no localized bleeding or redness. No telemetry events. Possible extubation today.ABG 7.35/38/96 on 35% FiO2 and PEEP December 26-Successfully extubated yesterday morning. Remained stable overnight. The morning wanting to try to eat or drink something. WBC decreased from 23K to 19K. However, late this morning, developed leakage of bowel contents through part of her abdominal incision. Taken back to the operating room for exploratory laparotomy. Will likely require mechanical ventilation postoperatively. December 27-patient successfully underwent repair of small leak in the distal ileum yesterday. Remained intubated overnight. This morning during sedation vacation and spontaneous breathing trial, patient was saturating well on 35% room air, had good minute ventilation during the breathing trial. She is successfully extubated. We'll later, respirations became labored. She was receiving significant volumes of IV fluid with maintenance as well as supplements being infused. Responded well to low-dose furosemide with improvement in respiratory status. December 28-overnight, had recurrent respiratory distress, tachypnea, labored respirations with rales and wheezes. Responded to further furosemide about 1 AM. Had recurrent respiratory distress about 5:30 this morning. Respirations were labored, while on only 2 L nasal cannula, saturations are dropped from high 90s to low 90s. She had wheezes as well as rales on exam. Received 10 mg of IV furosemide with some urine output and mild improvement, however required BiPAP therapy. Receive further 20 mg of furosemide with brisk diuresis. Remains on BiPAP for respiratory support. Chest x-ray with worsening interstitial infiltrates. Exam also with significant jugular venous distention consistent with volume overload. Has been receiving albumin. December 29-patient continues on BiPAP. She is off for a while this morning, became dyspneic. Improved approximately 1-2 hours after morning furosemide dose. She tends to have more respiratory distress as the furosemide has worn off. Has been receiving furosemide every 8 hours with good diuresis. Renal functions remain stable. At one point was complaining to family that she did not want to keep going with therapy, though seems to improved later in the morning. December 30-on BiPAP most of the night. Urine output responding to 20 mg of Lasix every 6 hours, urine output tails off towards the end. Receiving albumin and Lasix scheduled. Overall respiratory status clinically improved. Changed over to high flow nasal cannula this morning which she is tolerating. She complains of feeling tired, doesn't think she is any better. december 31 Pt seen and examined, no acute overnight events. Patient's chest x-ray shows worsening infiltrate versus ARDS versus pneumonia. Patient is on Zosyn as well as Flagyl. Start on vancomycin IV. She has completed her albumin and Lasix dosing according to the nurse. X-ray chest to rule is worsened. Patient is on 35% FiO2 by high flow nasal cannula. She seems to be tolerating it well. Her oxygen level is maintained with this. The patient definitely is tachypneic. She still complains about significant abdominal pain. [id number] ultrasound done IVC reviewed, the patient has complete collapse of the IVC with inspiration. This indicates that the patient does not seem to be in fluid overload other is volume depleted after aggressive diuresis. For now we will just hold off on Lasix and monitor. january 01 Patient seen and examined, no acute overnight events. She did use BiPAP for a while and then went back to her high flow nasal cannula. Chest x-ray shows persistent infiltrates. Clinically she is not volume overloaded. Oxygen requirements are trending down. She does note that she is very tired and wanted to give up overnight but after talking with the family she decided to continue. I do not believe that the patient is end-stage at this point in time, and she has a chance of recovery. Hold off on diuresis for now. Start on Cymbalta 30 mg once a day, they should help her with some anxiety depression as well as chronic aches and pains. Plan of care reviewed with the patient as well as the family. Use BiPAP as much as tolerated. january 02 Pt seen examined, no acute overnight issues, tolerating bipap intermittently had a better night pain is also better she is in better spirits today. family by the bed side She had one episode of shortness of breath yesterday, which improved with duonebs. Her IVC also showed more distention than the previous day, although still collapsing completely. Will keep the patient on low dose of lasix 20mg dailiy to keep her lungs as dry as possible She is oxygenating well, will wean off the hi moon nasal canula today if she is able to. january 03 Pt seen examined, overnight was confused after use of xanasx, this am drowsy, as she had received dilaudid but overall she is stable no complaints when woken up on bipap for now she was sob when she was weaned off the hiflo nasal canula continue same. january 04 pt seen examined, no acute overnight events, pain well controlled, CXR yesterday showed worsening infiltrates, caspofungin started in light of worsening infiltrates yesterday and tracheal aspirate growing anil. Pt off hiflo nasal canula today remains on iv diuresis overall stable 01/05- patient doing well. No overnight events. Diuresing well. Able to get out of bed to chair. Slightly short of breath but on room air. Much improved lymphedema. Tolerating diet advancement per surgery. On supplemental TPN currently being weaned. No overnight fever chills or concerns per staff. Stable hemodynamics and labs.hemoglobin 8.2 01/06-ppatient doing better. Transfer to medical floor. On oral diet per surgery. TPN currently being weaned. No overnight fever chills nausea vomiting. Anticipate surgical closure of the abdominal incision over the next few days. Managed by surgery. No further recommendations from hospitalist service. Lower Lasix dose to once daily 01/07- patient doing well. Ambulating with assistance. Tolerating diet advancement. white count down to 9.2 however hemoglobin at 6.7. No overnight events or concerns per staff. T-Max 99. Scheduled 2 units PRBC transfusion. stool guaiac negative. No source of occult bleed. Continue monitoring. Likely secondary to marrow suppression. 01/08-patient doing remarkably better. Hemoglobin 10.2. White count down to 8.4. On room air. Ambulating and able to transfer from bed to chair with minimal assistance. In good spirits. Discontinue vancomycin and caspofungin. on Zosyn/Flagyl per surgery. No overnight events or concerns per staff 01/09 Patient doing well, hemoglobin stable, white count normal, potassium 3.4 being replaced. Patient has no acute complaints or concerns. She is able to tolerate some food does not have much hungry today. Otherwise she remains on broad-spectrum antibiotics as per surgery. 01/10 Pt seen examined, no acute issues, no acute complaints, labs stable, waiting for closure surgery in AM no need for lasix today. 01/11 Pt seen examined, no acute overnight issues, this AM noted to be bit short of breath, but pt denies any issues, some nausea and vomiting reported by staff duoneb x 1 given, lasix x 1 given, repeat CXR is stable monitor for now. plan for surgery this afternoon. 01/12 Patient seen examined, no acute overnight events, this a.m. was sitting comfortably in the bed mental status was clear was able to tolerate p.o. diet well. Labs reviewed unremarkable. Yesterday she was hypoxic and did have some mental status changes workup was all negative. Likely she was just tired. Awaiting surgery for secondary closure of her abdominal incision. 01/13 pt seen, no acute overnight events, on 1-2 L oxygen, in bed comfortable plan for surgery today pt does not endrose any issues Incentive spirometery only 500cc possible, encouraged regular use. 01/14 Patient seen and examined, no acute overnight events, still needs 1 L oxygen to keep her oxygen saturation more than 95%. Intermittently drops down to 87. She is unable to work with incentive spirometry well. We will change incentive spirometry to a couple and see how she does. Pertinent ROS: Denies headache, dizziness Denies chest pain, palpitations Denies cough or shortness of breath Denies abdominal pain, nausea or vomiting. - Constitutional Vitals: Vital Signs Temp Pulse Resp BP Pulse Ox 98.0 F 81 22 130/74 93 01/14/18 12:43 01/14/18 13:51 01/14/18 17:42 01/14/18 13:51 01/14/18 17:42 Period Temp Pulse Resp BP Sys/[place] Pulse Ox Last 24 Hr 96.7 F-98.9 F 81-102 20-22 110-130/60-78 88-98 Intake and Output 01/14/18 01/14/18 01/14/18 05:59 13:59 21:59 Intake Total 350 / 350 170 / 170 250 / 250 Output Total 300 / 300 200 / 200 600 / 600 Balance 50 / 50 -30 / -30 -350 / -350 Weight 137 lb Patient Weight 01/15/18 05:59 Weight 137 lb Intake & Output: Intake & Output 01/14/18 01/14/18 01/14/18 05:59 13:59 21:59 Intake Total 350 / 350 170 / 170 250 / 250 Output Total 300 / 300 200 / 200 600 / 600 Balance 50 / 50 -30 / -30 -350 / -350 Weight 137 lb Intake: IV 100 / 100 50 / 50 Zosyn 3.375 gm In Dextrose 5% 100 / 100 50 / 50 in Water 50 ml @ 100 mls/hr IV Q6H [facility] Rx#:[id number] Oral 250 / 250 120 / 120 250 / 250 Output: Void Amount 200 / 200 200 / 200 600 / 600 Stool 100 / 100 Other: Meal Lunch Dinner Percent of Meal Consumed 0% 25% Feeding Ability Independent Independent Stool Size Moderate Moderate Stool Color Brown Brown Stool Consistency Liquid Liquid Exam: Constitutional; Afebrile, cooperative, alert, not in distress. Eyes- No icterus, , No periorbital swelling Ears- Ext ear normal, hearing normal to conversation. Neck- Midline trachea, supple Respiratory system: Air Entry equal on both sides, No crackles or wheezing, no rhonchi. CVS- Rate rhythm regular, S1,S2 heard, no gallop, no rub. C D [employer]- AOOx3, moving all extremities, no gross focal deficit noted. Medical - PN: Obj Da - Labs CBC & Chem 7: 01/12/18 10:59 01/12/18 10:59 Labs: Abnormal Lab Results 01/12/18 01/12/18 10:59 10:59 RBC 3.97 L Hgb 10.5 L Hct 32.2 L RDW 17.8 H Lymph % (Auto) 10.5 L Lymph # (Auto) 0.7 L GGT 78 H Meds: Medications Albuterol/Ipratropium (Duoneb) 3 ml NEB Q6HP PRN PRN Reason: Wheezing Alprazolam (Xanax) 0.5 mg PO TIDP PRN PRN Reason: Anxiety Last Admin: 01/14/18 13:18 Dose: 0.5 mg Artificial Tears (Artificial Tears Ophth Drops) 1 gtt OU QIDP PRN PRN Reason: Dry Eye(s) Celecoxib (Celebrex) 200 mg PO BID [facility] Duloxetine HCl (Cymbalta) 30 mg PO DAILY [facility] Last Admin: 01/14/18 08:37 Dose: 30 mg Heparin Sodium (Porcine) (Heparin Flush) 2 ml IV Q12 [facility] Last Admin: 01/14/18 09:40 Dose: 2 ml Hydromorphone HCl (Dilaudid) 1 mg IV Q6H PRN PRN Reason: PAIN LEVEL > 6 Acetaminophen (Ofirmev) 1,000 mg in 100 mls @ 200 mls/hr IV Q6HP PRN PRN Reason: Pain Last Infusion: 01/13/18 17:36 Dose: Infused Piperacillin Sod/Tazobactam (Sod 3.375 gm/ Dextrose) 50 mls @ 100 mls/hr IV Q6H [facility] Last Admin: 01/14/18 17:41 Dose: 100 mls/hr Ondansetron HCl (Zofran) 4 mg IV Q4HP PRN PRN Reason: Nausea And Vomiting Oxycodone/Acetaminophen (Percocet 10-325mg) 1 tab PO Q4H PRN PRN Reason: PAIN LEVEL 3-6 Last Admin: 01/14/18 17:39 Dose: 1 tab Pantoprazole Sodium (Protonix) 40 mg PO BIDAC [facility] Last Admin: 01/14/18 17:39 Dose: 40 mg Promethazine HCl (Phenergan) 12.5 mg IV Q4HP PRN PRN Reason: Nausea And Vomiting Sodium Chloride (Saline Flush) 10 ml IV Q8 [facility] Last Admin: 01/14/18 14:08 Dose: 10 ml Zolpidem Tartrate (Ambien) 5 mg PO HSP PRN PRN Reason: Insomnia Medical - PN: A/P - Time Spent With Patient Total time spent is greater than 50% in coordination of care (as documented) at patient's floor/unit and/or counseling patient: - Narrative A/P Narrative: 77-year-old female, status post exploratory laparotomy in attempt for ileostomy takedown after prior Clark's procedure last May. Unable to accomplish anastomosis due to friable tissues. Status post exploratory laparotomy. Management per surgery. plan for delayed closure today. HYpoxic resp failure: post op, secondary to fluid overload, and pna, s/p treatment, s/p mech vent and bipap. Now on room air, intermitently needs 1-2 L oxygen via nasal canula, aggresive pulm toilet with acapella Hypokalemia resolved. Anemia: Hb stable, s/p 2 units prbc anxiety - depression-chronic pain. on Cymbalta, tolerating it well. dvt [facility] Medical - PN: Qual - VTE Deep Vein Thrombosis/Pulmonary Embolism Present on Admission: No Procedures - Arterial Line Size (Gauge): 20
[2018-01-14] MEDS: CELECOXIB 200 MG CAPSULE PO SCH (21:38)
[2018-01-15] MEDS: oxyCODONE/APAP 10/325MG TABLET PO PRN ×2 (02:42→07:26)
[2018-01-15] MEDS: PIPERACILLIN SODIUM/TAZOBACTAM 3.375 GM in DEXTROSE 5% IN WATER 50 ML IV SCH ×2 (05:18→11:18)
[2018-01-15] MEDS: 0.9 % SODIUM CHLORIDE 10 ML SYRINGE IV SCH (06:00)
[2018-01-15] MEDS: PANTOPRAZOLE 40 MG TABLET PO SCH (07:13)
[2018-01-15] MEDS: DULoxetine 30 MG CAPSULE PO SCH (08:56)
[2018-01-15] MEDS: CELECOXIB 200 MG CAPSULE PO SCH (08:57)
--- NOTE | 2018-01-15 11:20 | Internal Med Progress Note ---
Medical - PN: Subj Patient information: Note initiated : 01/15/18 at 11:17 am Service Date, if different from initiated Date: [] Patient: Caroline Bellamy a 77 y/o F admitted on 12/23/17 for Ileostomy Closure and Colorectal Anastomosis. Chief Complaint: [] Interval history: December 23-Ms. Adiel Cardoso is a 77 year old F with a complex history with hospitalization May 2017 with diverticulitis perforation/peritonitis and prolonged hospital stay. 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 Hospitalization course was complicated by respiratory failure requiring mechanical ventilation and intra-abdominal infection with Pseudomonas. She underwent rehabilitation/TPN and prolonged hospitalization and was gradually recovering. She she now underwent expiratory laparotomy with extensive epidural lysis and small bowel resection. Postoperatively patient was unable to be extubated. Subsequently hospitalist service was consulted and patient was brought into the ICU on mechanical ventilation. patient currently on propofol/fentanyl. No family members available. systolics around 100. Patient has a line. Foleys catheter draining clear urine December 24-patient on mechanical ventilation. Map at 65 on 5 mics Levophed. Improving urine output. On light sedation. Weaning ventilator down to FiO2 35% , ABG 7.47/31/147. chest imaging revealed moderate left and small to moderat bibasilar infiltrate/effusion worsening since previous day. on Zosyn/Flagyl. Continue propofol/fentanyl for sedation. Start sedation holiday in a.m. for possible extubation. Continue weaning vasopressors. December 25- [place] [address]. Off vasopressors, T MAX 100, no chills. No anxiety, responding to verbal commands, on SBT/sedation holiday, Interval chest iamging shows atelectasis and pl effusion. alert. stable renal function. Diminishing urine output. A line and central line no localized bleeding or redness. No telemetry events. Possible extubation today.ABG 7.35/38/96 on 35% FiO2 and PEEP December 26-Successfully extubated yesterday morning. Remained stable overnight. The morning wanting to try to eat or drink something. WBC decreased from 23K to 19K. However, late this morning, developed leakage of bowel contents through part of her abdominal incision. Taken back to the operating room for exploratory laparotomy. Will likely require mechanical ventilation postoperatively. December 27-patient successfully underwent repair of small leak in the distal ileum yesterday. Remained intubated overnight. This morning during sedation vacation and spontaneous breathing trial, patient was saturating well on 35% room air, had good minute ventilation during the breathing trial. She is successfully extubated. We'll later, respirations became labored. She was receiving significant volumes of IV fluid with maintenance as well as supplements being infused. Responded well to low-dose furosemide with improvement in respiratory status. December 28-overnight, had recurrent respiratory distress, tachypnea, labored respirations with rales and wheezes. Responded to further furosemide about 1 AM. Had recurrent respiratory distress about 5:30 this morning. Respirations were labored, while on only 2 L nasal cannula, saturations are dropped from high 90s to low 90s. She had wheezes as well as rales on exam. Received 10 mg of IV furosemide with some urine output and mild improvement, however required BiPAP therapy. Receive further 20 mg of furosemide with brisk diuresis. Remains on BiPAP for respiratory support. Chest x-ray with worsening interstitial infiltrates. Exam also with significant jugular venous distention consistent with volume overload. Has been receiving albumin. December 29-patient continues on BiPAP. She is off for a while this morning, became dyspneic. Improved approximately 1-2 hours after morning furosemide dose. She tends to have more respiratory distress as the furosemide has worn off. Has been receiving furosemide every 8 hours with good diuresis. Renal functions remain stable. At one point was complaining to family that she did not want to keep going with therapy, though seems to improved later in the morning. December 30-on BiPAP most of the night. Urine output responding to 20 mg of Lasix every 6 hours, urine output tails off towards the end. Receiving albumin and Lasix scheduled. Overall respiratory status clinically improved. Changed over to high flow nasal cannula this morning which she is tolerating. She complains of feeling tired, doesn't think she is any better. december 31 Pt seen and examined, no acute overnight events. Patient's chest x-ray shows worsening infiltrate versus ARDS versus pneumonia. Patient is on Zosyn as well as Flagyl. Start on vancomycin IV. She has completed her albumin and Lasix dosing according to the nurse. X-ray chest to rule is worsened. Patient is on 35% FiO2 by high flow nasal cannula. She seems to be tolerating it well. Her oxygen level is maintained with this. The patient definitely is tachypneic. She still complains about significant abdominal pain. [id number] ultrasound done IVC reviewed, the patient has complete collapse of the IVC with inspiration. This indicates that the patient does not seem to be in fluid overload other is volume depleted after aggressive diuresis. For now we will just hold off on Lasix and monitor. january 01 Patient seen and examined, no acute overnight events. She did use BiPAP for a while and then went back to her high flow nasal cannula. Chest x-ray shows persistent infiltrates. Clinically she is not volume overloaded. Oxygen requirements are trending down. She does note that she is very tired and wanted to give up overnight but after talking with the family she decided to continue. I do not believe that the patient is end-stage at this point in time, and she has a chance of recovery. Hold off on diuresis for now. Start on Cymbalta 30 mg once a day, they should help her with some anxiety depression as well as chronic aches and pains. Plan of care reviewed with the patient as well as the family. Use BiPAP as much as tolerated. january 02 Pt seen examined, no acute overnight issues, tolerating bipap intermittently had a better night pain is also better she is in better spirits today. family by the bed side She had one episode of shortness of breath yesterday, which improved with duonebs. Her IVC also showed more distention than the previous day, although still collapsing completely. Will keep the patient on low dose of lasix 20mg dailiy to keep her lungs as dry as possible She is oxygenating well, will wean off the hi moon nasal canula today if she is able to. january 03 Pt seen examined, overnight was confused after use of xanasx, this am drowsy, as she had received dilaudid but overall she is stable no complaints when woken up on bipap for now she was sob when she was weaned off the hiflo nasal canula continue same. january 04 pt seen examined, no acute overnight events, pain well controlled, CXR yesterday showed worsening infiltrates, caspofungin started in light of worsening infiltrates yesterday and tracheal aspirate growing anil. Pt off hiflo nasal canula today remains on iv diuresis overall stable 01/05- patient doing well. No overnight events. Diuresing well. Able to get out of bed to chair. Slightly short of breath but on room air. Much improved lymphedema. Tolerating diet advancement per surgery. On supplemental TPN currently being weaned. No overnight fever chills or concerns per staff. Stable hemodynamics and labs.hemoglobin 8.2 01/06-ppatient doing better. Transfer to medical floor. On oral diet per surgery. TPN currently being weaned. No overnight fever chills nausea vomiting. Anticipate surgical closure of the abdominal incision over the next few days. Managed by surgery. No further recommendations from hospitalist service. Lower Lasix dose to once daily 01/07- patient doing well. Ambulating with assistance. Tolerating diet advancement. white count down to 9.2 however hemoglobin at 6.7. No overnight events or concerns per staff. T-Max 99. Scheduled 2 units PRBC transfusion. stool guaiac negative. No source of occult bleed. Continue monitoring. Likely secondary to marrow suppression. 01/08-patient doing remarkably better. Hemoglobin 10.2. White count down to 8.4. On room air. Ambulating and able to transfer from bed to chair with minimal assistance. In good spirits. Discontinue vancomycin and caspofungin. on Zosyn/Flagyl per surgery. No overnight events or concerns per staff 01/09 Patient doing well, hemoglobin stable, white count normal, potassium 3.4 being replaced. Patient has no acute complaints or concerns. She is able to tolerate some food does not have much hungry today. Otherwise she remains on broad-spectrum antibiotics as per surgery. 01/10 Pt seen examined, no acute issues, no acute complaints, labs stable, waiting for closure surgery in AM no need for lasix today. 01/11 Pt seen examined, no acute overnight issues, this AM noted to be bit short of breath, but pt denies any issues, some nausea and vomiting reported by staff duoneb x 1 given, lasix x 1 given, repeat CXR is stable monitor for now. plan for surgery this afternoon. 01/12 Patient seen examined, no acute overnight events, this a.m. was sitting comfortably in the bed mental status was clear was able to tolerate p.o. diet well. Labs reviewed unremarkable. Yesterday she was hypoxic and did have some mental status changes workup was all negative. Likely she was just tired. Awaiting surgery for secondary closure of her abdominal incision. 01/13 pt seen, no acute overnight events, on 1-2 L oxygen, in bed comfortable plan for surgery today pt does not endrose any issues Incentive spirometery only 500cc possible, encouraged regular use. 01/14 Patient seen and examined, no acute overnight events, still needs 1 L oxygen to keep her oxygen saturation more than 95%. Intermittently drops down to 87. She is unable to work with incentive spirometry well. We will change incentive spirometry to a couple and see how she does. 04/17 Pt seen examined, no acute overnight events, doing well no complaints sob on activity [id number], osat on room air is > 90, but nursing staff notes it drops occasionally below 90 when ambulating, will have RT evaluate patient for home oxygen Pertinent ROS: Denies headache, dizziness Denies chest pain, palpitations Denies cough or shortness of breath Denies abdominal pain, nausea or vomiting. - Constitutional Vitals: Vital Signs Temp Pulse Resp BP Pulse Ox 97.0 F 84 20 118/78 94 01/15/18 06:57 01/15/18 05:05 01/15/18 06:57 01/15/18 06:57 01/15/18 09:46 Period Temp Pulse Resp BP Sys/[place] Pulse Ox Last 24 Hr 95 F-99 F 79-91 20-22 110-130/60-82 90-98 Intake and Output 01/14/18 01/15/18 01/15/18 21:59 05:59 13:59 Intake Total 540 / 540 400 / 400 Output Total 700 / 700 175 / 175 Balance -160 / -160 225 / 225 Weight 137 lb 8 oz Intake & Output: Intake & Output 01/14/18 01/15/18 01/15/18 21:59 05:59 13:59 Intake Total 540 / 540 400 / 400 Output Total 700 / 700 175 / 175 Balance -160 / -160 225 / 225 Weight 137 lb 8 oz Intake: IV 50 / 50 100 / 100 Zosyn 3.375 gm In Dextrose 5% 50 / 50 100 / 100 in Water 50 ml @ 100 mls/hr IV Q6H [facility] Rx#:[id number] Oral 490 / 490 300 / 300 Output: Void Amount 700 / 700 100 / 100 Stool 75 / 75 Other: Meal Dinner Percent of Meal Consumed 25% Feeding Ability Independent Stool Size Small Stool Color Brown Stool Consistency Liquid # Voids 1 1 Exam: Constitutional; Afebrile, cooperative, alert, not in distress. Eyes- No icterus, , No periorbital swelling Ears- Ext ear normal, hearing normal to conversation. Neck- Midline trachea, supple Respiratory system: Air Entry equal on both sides, No crackles or wheezing, no rhonchi. CVS- Rate rhythm regular, S1,S2 heard, no gallop, no rub. BOAT CREW DECK HAND- AOOx3, moving all extremities, no gross focal deficit noted. Medical - PN: Obj Da - Labs CBC & Chem 7: 01/12/18 10:59 01/12/18 10:59 Labs: Abnormal Lab Results 01/12/18 01/12/18 10:59 10:59 RBC 3.97 L Hgb 10.5 L Hct 32.2 L RDW 17.8 H Lymph % (Auto) 10.5 L Lymph # (Auto) 0.7 L GGT 78 H Meds: Medications Albuterol/Ipratropium (Duoneb) 3 ml NEB Q6HP PRN PRN Reason: Wheezing Alprazolam (Xanax) 0.5 mg PO TIDP PRN PRN Reason: Anxiety Last Admin: 01/14/18 13:18 Dose: 0.5 mg Artificial Tears (Artificial Tears Ophth Drops) 1 gtt OU QIDP PRN PRN Reason: Dry Eye(s) Celecoxib (Celebrex) 200 mg PO BID [facility] Last Admin: 01/15/18 08:57 Dose: 200 mg Duloxetine HCl (Cymbalta) 30 mg PO DAILY [facility] Last Admin: 01/15/18 08:56 Dose: 30 mg Heparin Sodium (Porcine) (Heparin Flush) 2 ml IV Q12 [facility] Last Admin: 01/15/18 08:57 Dose: 2 ml Hydromorphone HCl (Dilaudid) 1 mg IV Q6H PRN PRN Reason: PAIN LEVEL > 6 Acetaminophen (Ofirmev) 1,000 mg in 100 mls @ 200 mls/hr IV Q6HP PRN PRN Reason: Pain Last Infusion: 01/13/18 17:36 Dose: Infused Piperacillin Sod/Tazobactam (Sod 3.375 gm/ Dextrose) 50 mls @ 100 mls/hr IV Q6H [facility] Last Infusion: 01/15/18 05:48 Dose: Infused Ondansetron HCl (Zofran) 4 mg IV Q4HP PRN PRN Reason: Nausea And Vomiting Oxycodone/Acetaminophen (Percocet 10-325mg) 1 tab PO Q4H PRN PRN Reason: PAIN LEVEL 3-6 Last Admin: 01/15/18 07:26 Dose: 1 tab Pantoprazole Sodium (Protonix) 40 mg PO BIDAC [facility] Last Admin: 01/15/18 07:13 Dose: 40 mg Promethazine HCl (Phenergan) 12.5 mg IV Q4HP PRN PRN Reason: Nausea And Vomiting Sodium Chloride (Saline Flush) 10 ml IV Q8 [facility] Last Admin: 01/15/18 06:00 Dose: 10 ml Zolpidem Tartrate (Ambien) 5 mg PO HSP PRN PRN Reason: Insomnia Last Admin: 01/14/18 21:38 Dose: 5 mg Medical - PN: A/P - Time Spent With Patient Total time spent is greater than 50% in coordination of care (as documented) at patient's floor/unit and/or counseling patient: - Narrative A/P Narrative: 77-year-old female, status post exploratory laparotomy in attempt for ileostomy takedown after prior Clark's procedure last May. Unable to accomplish anastomosis due to friable tissues. Status post exploratory laparotomy. Management per surgery. HYpoxic resp failure: post op, pt has some hypoxia which is intermittent, poor conditioning, atelectasis likely etiology also poor resp effort given recent bowel surgery, will evaluate for home oxygen today. continue aggresive Pulmonary toilet. anxiety - depression-chronic pain. on Cymbalta, tolerating it well. will send prescription to pharmacy today. dvt scd Medical - PN: Qual - VTE Deep Vein Thrombosis/Pulmonary Embolism Present on Admission: No Procedures - Arterial Line Size (Gauge): 20
--- NOTE | 2018-01-15 13:03 | Discharge Summary ---
Providers - Providers Patient information: Note initiated : 01/15/18 at 12:56 pm Service Date, if different from initiated Date: [] Patient: Caroline Bellamy 77 y/o F admitted on 12/23/17 for Ileostomy Closure and Colorectal Anastomosis. Chief Complaint: [] Date of admission: 12/23/17 Discharge date: 01/15/18 Attending physician: Amada Eubanks hospitalist service Hospitalization Hospital course: 77-year-old female admitted on 23 December after undergoing exploratory laparotomy with lysis of adhesions and small bowel resection due to multiple enterotomies. The patient had extensive intra-abdominal adhesions and very friable small bowel which was not easily dissected. It was felt that her bowel integrity was not adequate for re-anastomosis. She required postoperative ventilation and vasopressor therapy. She was treated and supported with the help of the hospitalist service. On 26 December it was noted that there was a fecal effluent coming from her midline incision. She was reexplored and was found to have a microperforation of small bowel. This was debrided and closed primarily and drained. Subcutaneous tissue and skin was left open treated locally. After about 28 December her drains only put out serous drainage. She developed volume overload on the third day after recent reoperation and required vigorous diuresis. Chest x-ray suggested an infiltrate but there was not significant changes radiographically though the patient started to improve. She underwent vigorous Lasix diuresis augmented with albumin and her proBNP which reached over 30,000 returned to less than 1000. It was noted that on ultrasound she had prolapse of her vena cava with inspiration suggesting volume depletion. She also had rising BUN and creatinine. Her chest x-ray however never significantly changed suggesting that this is a chronic persistent problem related to her interstitial lung disease. She received TPN throughout most of her hospitalization. 116 december delayed closure of her incision was carried out and her drains were removed. She tolerated this well. Her wound has a small amount of drainage which is serosanguineous from her granulation tissue but otherwise is unremarkable. She had some anxiety with depression which was treated with benzodiazepines and Cymbalta this seemed to improve her overall state. Presently she is stable enough for discharge home. She will have [facility] home health for home health services. Discharge diagnosis: Ileostomy status Secondary discharge diagnosis: Severe intra-abdominal adhesions Enterocutaneous fistula Hypoxic respiratory failure Volume overload with congestive heart failure Severe protein calorie malnutrition Anxiety with depression Acute and chronic anemia Possible pneumonitis Procedures: ileostomy closure Pertinent studies/significant findings: CT of abdomen and pelvis with contrast Complications: Microperforation small bowel with localized peritonitis Exam Temp Pulse Resp BP Pulse Ox 96.5 F L 83 22 114/76 93 01/15/18 12:27 01/15/18 12:27 01/15/18 12:27 01/15/18 12:01/15/18 12:27 - General physical appearance well developed, well nourished, moderate distress, moderate pain, cachectic, chronically ill - Eyes PERRL, normal ocular movement - ENT normal pinna, normal nares, normal mucosa, no hearing loss, no congestion - Head Head exam IM: Present: atraumatic, normocephalic - Neck no masses, no bruits, trachea midline, no lymphadectomy, no venous distension - Cardiovascular Cardiovascular exam IM: Present: normal rate and rhythm, RRR, +S1, +S2, tachycardia. Absent: JVD - Respiratory normal expansion, normal respiratory effort, clear to percussion, clear to auscultation, other (Breath sounds are fairly clear) - Abdomen Abdomen: Present: soft, tender, bowel sounds, surgical scars (Healing abdominal incision with small amount of serous drainage; ileostomy in right lower quadrant ; mucous fistula left upper quadrant) Hernia: Present: none - Genitourinary Present: normal external genitalia - Integumentary Present: no rash, no growths, no abnormal pigmentation - Neurologic Present: normal coordination, normal sensation - Musculoskeletal Present: normal gait, normal posture - Psychiatric Present: oriented to time, oriented to person, oriented to place, speech is normal, memory intact Discharge Plan - Patient/Caregiver Discharge Instructions Activity: increase activity as tolerated Diet: Regular Diet Additional Instructions: No heavy lifting. May shower, cover dressing. Leave dressing in place until seen in the physician's office. Prescriptions: Zolpidem Tartrate [Ambien] 5 mg PO QHS #30 tab DULoxetine [Cymbalta] 30 mg PO DAILY #30 cap HYDROcodone/APAP 5/325MG [[place] 5-325Mg] 1 tab PO DAILYP PRN #60 tab PRN Reason: Pain Levofloxacin [Levaquin] 500 mg PO DAILY #10 tab Other Amb Orders: Wheelchair Location: Determined By Patient - Follow up Plan Follow up with: Amada Eubanks MD [Physician] - (Please call Thursday and schedule a follow up appointment to be seen in 10 days.) Disposition: Home Health Service Prognosis: Good Rehab Potential: Good I certify that the patient requires SNF services.: No Overall status at discharge: patient is not back to baseline Pending Studies Resuscitation Status Full Code Diet Regular Diet Start ThuJanuary 13 1158 Alprazolam (Xanax) 0.5 mg PO TIDP PRN PRN Reason: Anxiety Last Admin: 01/14/18 13:18 Dose: 0.5 mg Celecoxib (Celebrex) 200 mg PO BID [facility] Last Admin: 01/15/18 08:57 Dose: 200 mg Admin: 01/14/18 21:38 Dose: 200 mg Duloxetine HCl (Cymbalta) 30 mg PO DAILY [facility] Last Admin: 01/15/18 08:56 Dose: 30 mg Admin: 01/14/18 08:37 Dose: 30 mg Heparin Sodium (Porcine) (Heparin Flush) 2 ml IV Q12 [facility] Last Admin: 01/15/18 08:57 Dose: 2 ml Admin: 01/14/18 21:39 Dose: 2 ml Admin: 01/14/18 09:40 Dose: 2 ml Acetaminophen (Ofirmev) 1,000 mg in 100 mls @ 200 mls/hr IV Q6HP PRN PRN Reason: Pain Last Infusion: 01/13/18 17:36 Dose: 0 mls/hr Admin: 01/13/18 16:57 Dose: 200 mls/hr Piperacillin Sod/Tazobactam (Sod 3.375 gm/ Dextrose) 50 mls @ 100 mls/hr IV Q6H [facility] Last Admin: 01/15/18 11:18 Dose: 100 mls/hr Infusion: 01/15/18 05:48 Dose: 0 mls/hr Admin: 01/15/18 05:18 Dose: 100 mls/hr Infusion: 01/14/18 23:34 Dose: 100 mls/hr Admin: 01/14/18 23:04 Dose: 100 mls/hr Infusion: 01/14/18 18:11 Dose: 100 mls/hr Admin: 01/14/18 17:41 Dose: 100 mls/hr Infusion: 01/14/18 12:24 Dose: 0 mls/hr Admin: 01/14/18 11:45 Dose: 100 mls/hr Infusion: 01/14/18 05:30 Dose: 0 mls/hr Admin: 01/14/18 04:58 Dose: 100 mls/hr Infusion: 01/14/18 00:05 Dose: 100 mls/hr Admin: 01/13/18 23:35 Dose: 100 mls/hr Infusion: 01/13/18 17:27 Dose: 0 mls/hr Admin: 01/13/18 16:57 Dose: 100 mls/hr Oxycodone/Acetaminophen (Percocet 10-325mg) 1 tab PO Q4H PRN PRN Reason: PAIN LEVEL 3-6 Last Admin: 01/15/18 07:26 Dose: 1 tab Admin: 01/15/18 02:42 Dose: 1 tab Admin: 01/14/18 21:35 Dose: 1 tab Admin: 01/14/18 17:39 Dose: 1 tab Admin: 01/14/18 12:00 Dose: 1 tab Admin: 01/14/18 08:37 Dose: 1 tab Admin: 01/14/18 05:01 Dose: 1 tab Admin: 01/13/18 23:34 Dose: 1 tab Admin: 01/13/18 19:26 Dose: 1 tab Pantoprazole Sodium (Protonix) 40 mg PO BIDAC [facility] Last Admin: 01/15/18 07:13 Dose: 40 mg Admin: 01/14/18 17:39 Dose: 40 mg Admin: 01/14/18 08:37 Dose: 40 mg Admin: 01/13/18 19:27 Dose: Sodium Chloride (Saline Flush) 10 ml IV Q8 [facility] Last Admin: 01/15/18 06:00 Dose: 10 ml Admin: 01/14/18 21:41 Dose: 10 ml Admin: 01/14/18 14:08 Dose: 10 ml Admin: 01/14/18 04:58 Dose: 10 ml Admin: 01/13/18 22:04 Dose: 10 ml Admin: 01/13/18 15:19 Dose: 10 ml Zolpidem Tartrate (Ambien) 5 mg PO HSP PRN PRN Reason: Insomnia Last Admin: 01/14/18 21:38 Dose: 5 mg Shift Summary 01/15/18 04:19 Shift Summary by Usha,Solo pt is SBA to the toilet. she was desating to 82% while going to the toilet.Pain was well control with percocet , last 1 tab given to her at 0242, pain rating 5/ 10. wheezes heard over the right anterior upper lung field. pt was on 0.5l of O2 most of the night. LFA PICC line is patent, no s/s of phlebitis noted. Initialized on 01/15/18 04:19 - END OF NOTE
--- NOTE | 2018-01-19 12:57 | Operative Note ---
DATE OF OPERATION: 01/13/2018 PREOPERATIVE DIAGNOSIS: Open abdominal incision. POSTOPERATIVE DIAGNOSIS: Open abdominal incision. PROCEDURE: Debridement and secondary closure of open abdominal incision, 17 cm. SURGEON: Amada Eubanks M.D. FINDINGS: Mild fascial necrosis with fibrinous debris of the entire incision. DESCRIPTION: The patient was taken to the OR suite and general anesthesia was induced. The stoma was sutured closed with running locking 2-0 silk. It was prepped and then covered with a large Tegaderm. The rest of the abdomen was then prepped and draped in a sterile field. Cultures of the base of the wound were taken x2. Using a scrub brush with Betadine, a vigorous scrub of the wound was carried out to remove most of the fibrinous exudate. There was some necrosis of the fascia superficially. This was debrided using Metzenbaum scissors. Irrigation was carried out. The wound was covered with bacitracin powder. The subcutaneous tissue was closed in two layers using 2-0 Monocryl. The skin was closed with interrupted 2-0 Prolene suture in a mattress fashion. Dressing was placed. The patient tolerated the procedure well. She was awakened after the stoma was opened and the stoma appliance was placed. She was transferred to the postanesthetic care unit in satisfactory condition. LCS:keke Job ID: [id number] Doc ID: [id number] Amada Eubanks M.D.
--- NOTE | 2018-01-28 12:16 | Operative Note ---
DATE OF OPERATION: 12/23/2017 PREOPERATIVE DIAGNOSIS: Ileostomy status. POSTOPERATIVE DIAGNOSIS: Ileostomy status, extensive intra-abdominal adhesions and chronic intestinal inflammation. PROCEDURE: Exploratory laparotomy, extensive adhesiolysis, and small bowel resection. SURGEON: Amada Eubanks MD FINDINGS: Total peritoneal severe adhesions and inflamed small bowel loops. DESCRIPTION OF PROCEDURE: Under general anesthesia, the patient was prepped. The ileostomy was closed with 2-0 Monocryl and the mucous fistula was closed with 2-0 silk. The abdomen was then prepped and draped and covered with a Vi-drape. The old incision was excised. The incision down to the fascia was carried out using electrocautery. Once I reached the fascia, it was very difficult to find an opening into the peritoneal cavity. I tried to get into the peritoneal cavity proximally, distally and into the central portion. There were extensive adhesions between the underlying small bowel loops and the peritoneum. Therefore, I elected to try to enter in the mid portion. The fascia was grasped with Allis clamps and an attempt was made to try to free up the small bowel from the peritoneum. It was very fibrotic, thick and adherent. While trying to enter the peritoneum initially a small enterotomy was made in the small bowel. This was noted with a suture of 3-0 silk. I continued to do the dissection until I had both sides of the peritoneum freed but in the interim, there were at least four enterotomies made and the bowel was very inflamed and friable. There were periods in which simple grasping of the bowel led to a tear, either in the serosa or through the full wall of the bowel. After at least 2 hours of dissection with the inability to make any headway in freeing up her bowel and without being able to get to the terminal ileum or the rectal stump it was decided that the procedure could not be safely completed. The areas of the enterostomies, which had been previously noted, were dissected. They were close to each other and thankfully were in the same loop so this segment was excised. The bowel wall was dissected free and was then transected using a KAILA stapler. The mesentery was serially clamped and divided. Vessels were tied with 2-0 silk. A [id number] anastomosis was performed using the KAIAL 55 stapler and the TA 60 stapler. Mesenteric defect was closed with running 2-0 Monocryl. Irrigation was carried out. The bowel wall was inspected. There were multiple loops that were never freed and were almost congealed into one confluent mass of bowel. Irrigation was carried out. There were two areas where there was serosal denuding. These were covered with the serosa using a running 3-0 Monocryl. Irrigation was carried out once again. It was elected to close the abdomen. The peritoneum was closed using running #1 Prolene. Subcutaneous tissue was closed with 2-0 Monocryl. Skin was closed with agata. The ileostomy and the mucous fistula openings were reopened by removal of the suture. Dressing was placed over the incision. Stoma appliance over the ileostomy and gauze was placed over the mucous fistula. The patient was slow to awaken so she was left intubated and transferred to the ICU in stable condition. LCS:jenny Job ID: [id number] Doc ID: [id number] Amada Eubanks M.D.
--- NOTE | 2018-01-28 12:26 | Operative Note ---
DATE OF OPERATION: 12/26/2017 PREOPERATIVE DIAGNOSIS: Small bowel leak with fistula. POSTOPERATIVE DIAGNOSIS: Microperforation of small bowel with limited peritonitis. PROCEDURE: Exploratory laparotomy with small bowel perforation. SURGEON: Amada Eubanks MD FINDINGS: Microperforation of the afferent limb of the small bowel anastomosis. DESCRIPTION OF PROCEDURE: Under general anesthesia, the patient's abdomen was prepped and draped in the sterile field after the ileostomy was closed. The old agata were removed and the subcutaneous tissue suture was removed. Most of the drainage was within the mid portion of the incision. Then, #1 Prolene suture was removed and the preperitoneal space was entered. This was the area of the anastomosis. Copious irrigation was carried out. Inspection revealed bilious drainage of the loop leading to the small bowel anastomosis. Close inspection revealed a microperforation about the size of a needle with a small amount of fluid leaking through. The distal limb was unremarkable. I was able to push fluids through the anastomosis into the distal limb. The hole was closed with a [id number] suture of 3-0 Monocryl x2 with inversion of the initial suture. This was then oversewn with interrupted 3-0 Prolene. Careful evaluation of all of the exposed bowel loops was carried out. No other drainage was noted. Two 7 flat Severiano drains were placed beneath the anastomosis and brought out laterally. The area was flushed with bacitracin solution. The fascia was then closed with running #1 Prolene. Subcutaneous tissue was left open and was coated with bacitracin powder and then covered with Aquacel AG gauze. This was covered with 4 x 4s and Tegaderm. The stomas were opened. The patient was awakened, extubated and transferred to the postanesthetic care area in satisfactory condition. LCS:jenny Job ID: [id number] Doc ID: [id number] Amada Eubanks M.D.
== END 2018-01-15 13:38 | disposition home health service (06) | DRG 329 ==
LOC: MEDSUR 06:53 → ICU 15:55 → MEDSUR 01-06 17:53
PROVIDERS: ADMIT Family Medicine Adult Medicine; ATTEND Family Medicine Adult Medicine

== ENCOUNTER 2018-01-16 14:11 | Observation (INO) ==
--- NOTE | 2018-01-16 15:17 | Emergency Department Note ---
General Adult HPI - General Chief complaint: Weakness Stated complaint: Weakness Time Seen by Provider: 01/16/18 14:35 Source: patient Mode of arrival: ambulatory Limitations: no limitations - History of Present Illness HPI Narrative: 77-year-old female comes back to the ER after being discharged from the hospital yesterday. She was previously in the hospital from December 24 - January 15 for colostomy related issues. At the time she was discharged yesterday she was stable and had normal vitals rest. Apparently she did not qualify for home oxygen. She had refused to go to half-way for rehab. Anyways at home yesterday she had 2 episodes of vomiting and increasing weakness and falling. She had increased wheezing and chest pressure. Gasping for air. Elevated temperature 99.1 here. Apparently this morning she is actually feeling a little better and ate a bite of egg without difficulty and did not vomit that up. Her oxygen saturations drop with minimal exertion like transferring from bed to his seat down into the low 80s. In fact she was 82% here in triage. Respiratory rate in the 30s. Apparently she had trouble overnight complaining that Levaquin made her nauseous and that Cymbalta caused hallucinations. She has not taken her dose of Levaquin this morning. Her wound site is doing well and her colostomy is intact. She is able to talk to me and give me a reasonable history Apparently the patient was doing well until May of last year and then because of the course of events had to live with her daughter until the time of her surgery in November. Reviewed echocardiogram from December 29, 2017 which shows ejection fraction 55-60% pulmonary artery pressure 40-55 which is consistent with moderate pulmonary hypertension - Related Data Home Medications Medication Instructions Recorded Confirmed Ibuprofen [Motrin] 200 mg PO Q4HP PRN 12/16/17 01/16/18 Albuterol Sulfate [Ventolin] 1 dose NEB DAILY 12/23/17 01/16/18 Previous Rx's Medication Instructions Recorded DULoxetine [Cymbalta] 30 mg PO DAILY #30 cap 01/15/18 HYDROcodone/APAP 5/325MG [[place] 1 tab PO DAILYP PRN #60 tab 01/15/18 5-325Mg] Levofloxacin [Levaquin] 500 mg PO DAILY #10 tab 01/15/18 Zolpidem Tartrate [Ambien] 5 mg PO QHS #30 tab 01/15/18 Allergies Allergy/AdvReac Type Severity Reaction Status Date / Time Nitrous Oxide AdvReac Mild Hallucinati Verified 12/16/17 11:06 ng Past Medical History - Past Medical History Medical history: Reports: arthritis, asthma, other (pulmonary fibrosis, proximal humeral fracture). Denies: cancer, coronary artery disease, CVA, DM, hypertension, myocardial infarction, [employer] history: Reports: bilateral tubal ligation Surgical history ED: Reports: appendectomy, cataract, cholecystectomy, other ( cardiac ablation of E- pathway, carpal tunnel (2 left, 1 right (?)), left arm nerve (ulnar n.?), cervical fusion multilevel, bilateral breast implants.) - Social History smoking status: Never smoker Alcohol use: Reports: None, Occasionally (1-2 wine per week.) Drug use: Reports: none Physical Exam Thin frail female in mild respiratory distress. Normocephalic atraumatic. Conjunctive are clear sclerae nonicteric. No nasal discharge or congestion. Oropharynx is pink and moist. Neck is supple without lymphadenopathy or thyromegaly. Heart is regular rate and rhythm no murmur appreciated. Lungs are basically clear to auscultation in the upper alves but she does have an end expiratory wheeze. Lower lung alves are silent concern for effusion. Abdomen shows bandaged wounds and colostomy site in the right. None of these are leaking. Not very tender. No pedal edema. +2 radial pulse. Alert oriented able answer questions appropriately. Limitations: no limitations Course Vital Signs Temperature 99.1 F H 01/16/18 14:12 Pulse Rate 95 H 01/16/18 14:12 Respiratory Rate 28 H 01/16/18 14:12 Blood Pressure 155/80 01/16/18 14:12 Pulse Oximetry (%) 96 01/16/18 14:12 Temperature 99.1 F H 01/16/18 14:12 Pulse Rate 105 H 01/16/18 16:26 Respiratory Rate 22 01/16/18 16:26 Blood Pressure 150/119 01/16/18 16:26 Pulse Oximetry (%) 97 01/16/18 16:26 Medical Decision Making - Medical Records Medical records reviewed: Yes I reviewed the patient's medical records. - Lab Data Lab results reviewed: Yes I reviewed the patient's lab results. Result diagrams: 01/16/18 15:25 01/16/18 15:25 Lab Results 01/16/18 01/16/18 01/16/18 Range/Units 15:25 15:25 15:25 WBC 8.0 (4.5-11.0) K/mcL RBC 4.24 (4.00-5.20) M/mcL Hgb 11.3 L (12.0-15.0) g/dL Hct 34.5 L (36.0-48.0) % MCV 81.3 (80.0-100.0) fL MCH 26.7 (26.0-34.0) pg MCHC 32.9 (31.0-36.0) g/dL RDW 18.1 H (11.5-14.5) % Plt Count 291 (140-440) K/mcL MPV 8.7 (7.4-10.4) fL Gran % 82.1 H (38.0-78.0) % Lymph % (Auto) 9.9 L (15.5-49.0) % [place] % (Auto) 7.5 (1.0-12.0) % Eos % (Auto) 0 (0.0-7.0) % Baso % (Auto) 0.5 (0.0-2.0) % Gran # 6.6 (1.8-8.0) K/mcL Lymph # (Auto) 0.8 L (1.5-4.8) K/mcL [place] # (Auto) 0.6 (0.1-0.9) K/mcL Eos # (Auto) 0 (0.0-0.7) K/mcL Baso # (Auto) 0 (0.0-0.3) K/mcL VBG Lactic Acid 0.7 (0.5-2.2) mmol/L O2 Delivery Level Sodium 137 (133-145) mmol/L Potassium 3.5 (3.3-5.1) mmol/L Chloride 96 (96-108) mmol/L Carbon Dioxide 25 (22-30) mmol/L Anion Gap 16.0 (8-16) BUN 7 L (8-23) mg/dl Creatinine 0.4 L (0.6-1.1) mg/dl GFR Calculation 102 Glucose 94 (70-105) mg/dL Calcium 9.4 (8.6-10.4) mg/dl Magnesium 1.5 L (1.6-2.5) mg/dL Total Bilirubin 0.5 (0.0-1.0) mg/dL AST 12 (0-37) U/l ALT 7 (0-40) U/l Alkaline Phosphatase 70 (39-117) U/L NT-Pro-B Natriuret Pep 6574.0 H (0-450) pg/ml Total Protein 6.5 (5.9-8.4) gm/dL Albumin 3.8 (3.2-5.2) gm/dL Globulin 2.7 (2.2-3.7) gm/dL Albumin/Globulin Ratio 1.4 (1.0-2.3) Urine Color Urine Appearance Urine pH (5.0-9.0) Ur Specific [place] (1.000-1.035) Urine Protein (NEG) mg/dL Urine Glucose (UA) (NEG) mg/dL Urine Ketones (NEG) mg/dL Urine Occult Blood (<0.03) mg/dL Urine Nitrate (NEG) Urine Bilirubin (NEG) mg/dL Urine Urobilinogen (NEG) mg/dL Ur Leukocyte Esterase (NEG) /uL Urine RBC (0-1) /hpf Urine WBC (0-4) /hpf Ur Squamous Epith Cells (0-4) /hpf Ur Transition Epith Cell (0-2) /hpf Calcium Oxalate Crystal (0) /hpf Urine Bacteria (0) /hpf Hyaline Casts (0-2) /lpf Urine Mucus (0) /hpf Ur Culture Indicated? 01/16/18 01/16/18 Range/Units 16:00 17:02 WBC (4.5-11.0) K/mcL RBC (4.00-5.20) M/mcL Hgb (12.0-15.0) g/dL Hct (36.0-48.0) % MCV (80.0-100.0) fL MCH (26.0-34.0) pg MCHC (31.0-36.0) g/dL RDW (11.5-14.5) % Plt Count (140-440) K/mcL MPV (7.4-10.4) fL Gran % (38.0-78.0) % Lymph % (Auto) (15.5-49.0) % [place] % (Auto) (1.0-12.0) % Eos % (Auto) (0.0-7.0) % Baso % (Auto) (0.0-2.0) % Gran # (1.8-8.0) K/mcL Lymph # (Auto) (1.5-4.8) K/mcL [place] # (Auto) (0.1-0.9) K/mcL Eos # (Auto) (0.0-0.7) K/mcL Baso # (Auto) (0.0-0.3) K/mcL VBG Lactic Acid (0.5-2.2) mmol/L O2 Delivery Level Not Reportable Sodium (133-145) mmol/L Potassium (3.3-5.1) mmol/L Chloride (96-108) mmol/L Carbon Dioxide (22-30) mmol/L Anion Gap (8-16) BUN (8-23) mg/dl Creatinine (0.6-1.1) mg/dl GFR Calculation Glucose (70-105) mg/dL Calcium (8.6-10.4) mg/dl Magnesium (1.6-2.5) mg/dL Total Bilirubin (0.0-1.0) mg/dL AST (0-37) U/l ALT (0-40) U/l Alkaline Phosphatase (39-117) U/L NT-Pro-B Natriuret Pep (0-450) pg/ml Total Protein (5.9-8.4) gm/dL Albumin (3.2-5.2) gm/dL Globulin (2.2-3.7) gm/dL Albumin/Globulin Ratio (1.0-2.3) Urine Color Yellow Urine Appearance Clear Urine pH 6.0 (5.0-9.0) Ur Specific [place] 1.014 (1.000-1.035) Urine Protein Neg (NEG) mg/dL Urine Glucose (UA) Negative (NEG) mg/dL Urine Ketones 80 A (NEG) mg/dL Urine Occult Blood Neg (<0.03) mg/dL Urine Nitrate Neg (NEG) Urine Bilirubin Neg (NEG) mg/dL Urine Urobilinogen Neg (NEG) mg/dL Ur Leukocyte Esterase 25 A (NEG) /uL Urine RBC 1 (0-1) /hpf Urine WBC 10 H (0-4) /hpf Ur Squamous Epith Cells 2 (0-4) /hpf Ur Transition Epith Cell 2 (0-2) /hpf Calcium Oxalate Crystal Few A (0) /hpf Urine Bacteria Few A (0) /hpf Hyaline Casts 1 (0-2) /lpf Urine Mucus Mod (0) /hpf Ur Culture Indicated? Yes Urinalysis [id number] dipstick shows normal urine with specific gravity 1.010 high ketones - Radiology Data Radiology results reviewed: Yes I reviewed the patient's radiology results. Chest x-ray is stable when compared to CT scan from 5 days ago. Bilateral pleural effusions no worse. Right humeral neck fracture nondisplaced - EKG Data EKG #1 EKG attestation: Yes I reviewed and interpreted this EKG. EKG results narrative: EKG shows a rate of 90 PACs large atrium on the left otherwise sinus rhythm without evidence of ischemia. Compared with previous PACs are new Disposition Pt seen by RETAIL MARKETING SPECIALIST/PA only: No Clinical Impression: Pulmonary fibrosis, Hypoxemia, Hypomagnesemia, Pleural effusion, Pulmonary hypertension Summary: Chart is reviewed prior to entering the room. After interview and exam workup ordered with x-ray laboratory. Treatment ordered with DuoNeb and oxygen titration. Patient is okay with coming back in the hospital if needed but refuses half-way preemptively Laboratory shows increase in BNP from 0576-0255 range. X-rays stable-stable pleural effusions compared to previous CT scan 5 days ago. Breathing improved with DuoNeb and oxygen. Oxygen levels have stayed stable at rest but with oxygen on at rest her respiratory rate is gone down. She has not vomited here Suspect exacerbation of pulmonary fibrosis/asthma with hypoxia and pleural effusions requiring oxygen and nebulizer treatments. we are not able to get oxygen or nebulized breathing treatments for home use through the ER on a Thursday night -she clearly requires these things here in the ER . discussed case with Dr. Quintero the hospitalist, who agreed to accept the patient to observation status for further care and evaluation until logistics could be arranged. Disposition: Xfer As Outpt/Obs ([facility]) Condition: Serious Referrals: Montana Mohamud MD [Primary Care Provider] -
[2018-01-16] MEDS ORDERED: 0.9 % SODIUM CHLORIDE 1,000 ML IV ONE (15:19)
[2018-01-16] MEDS ORDERED: IPRATROPIUM/ALBUTEROL 3 ML AMPUL.NEB NEB ONE (15:30)
[2018-01-16 16:09] LABS: Basophils # (Auto) 0 K/mcL (0.0-0.3); Basophils % (Auto) 0.5 % (0.0-2.0); Eosinophils # (Auto) 0 K/mcL (0.0-0.7); Eosinophils % (Auto) 0 % (0.0-7.0); Granulocytes % (Auto) 82.1 % (38.0-78.0); Lymphocytes # (Auto) 0.8 K/mcL (1.5-4.8); Lymphocytes % (Auto) 9.9 % (15.5-49.0); Mean Cell Volume 81.3 fL (80.0-100.0); Mean Corpuscular HGB Conc 32.9 g/dL (31.0-36.0); Mean Corpuscular Hemoglobin 26.7 pg (26.0-34.0); Monocytes # (Auto) 0.6 K/mcL (0.1-0.9); Monocytes % (Auto) 7.5 % (1.0-12.0); Platelet Count 291 K/mcL (140-440); RBC 4.24 M/mcL (4.00-5.20); Red Cell Distribution Width 18.1 % (11.5-14.5)
[2018-01-16] MEDS ORDERED: ONDANSETRON 4 MG/2 ML VIAL IV ONE (16:29)
[2018-01-16] MEDS ORDERED: HYDROcodone/APAP 5/325MG TABLET PO ONE (16:29)
[2018-01-16 16:39] LABS: ALT/SGPT 7 U/l (0-40); Albumin 3.8 gm/dL (3.2-5.2); Albumin/Globulin Ratio 1.4 (1.0-2.3); Alkaline Phosphatase 70 U/L (39-117); Blood Urea Nitrogen 7 mg/dl (8-23)
--- NOTE | 2018-01-16 16:39 | XRay Report ---
INDICATION: Weakness TECHNIQUE: PA and lateral upright chest x-ray COMPARISON: Chest x-rays dated 01/11/2018, 01/10/2018, 01/03/2018. CT scan dated 01/11/2018 FINDINGS:There is mild cardiomegaly. Pulmonary vascularity is prominent with probable interstitial pulmonary edema. There are bibasilar infiltrates which also probably represent pulmonary edema. There is pleural fluid. This pleural fluid is unchanged since previous CT scan dated 01/11/2018. Findings are most consistent with congestive heart failure. There has been mild interval worsening since 01/11/2018. Right-sided PICC line has been removed. There is a nonacute fracture of the surgical neck of the proximal right humerus IMPRESSION: 1. Findings consistent with congestive heart failure. 2. Bilateral pleural effusions appear unchanged CT scan dated 01/11/2018 Interpreted and Authenticated by: Valentin Alanis 01/16/18
[2018-01-16 16:48] LABS: Appearance,Urine CLEAR; Bacteria,Urine FEW /hpf (0); Bilirubin,Urine NEG (NEG); Calcium Oxalate Crystals,Urine FEW /hpf (0); Color,Urine YELLOW; Glucose,Urine (UA) NEGATIVE (NEG); Leukocyte Esterase,Urine 25 /uL (NEG); Mucus,Urine MOD /hpf (0); Protein,Urine NEG (NEG); Specific Gravity,Urine 1.014 (1.000-1.035); Urine Blood NEG mg/dL (<0.03); Urine Hyaline Cast 1 /lpf (0-2); Urine RBC 1 /hpf (0-1); Urine Squamous Epithelial Cell 2 /hpf (0-4); Urine Transitional Epi Cells 2 /hpf (0-2); Urine WBC 10 /hpf (0-4); Urobilinogen,Urine NEG (NEG)
[2018-01-16] MEDS ORDERED: MAGNESIUM SULFATE 2 GM/50 ML BAG IV ONE (17:21)
[2018-01-16 17:28] LABS: ABG Methemoglobin 0.3 % (0.4-1.5); VBG Base Excess 0.1 (-2.0-2.0); VBG HCO3 24.5 mmol/L (24.0-28.0); VBG Oxygen Saturation 93.1 % (40.0-70.0); VBG PH 7.42 U (7.32-7.42); VBG PO2 89 mmHg (25-40); VBG Total CO2 25.7 mmol/L (25.0-29.0)
[2018-01-16] MEDS ORDERED: ALBUTEROL SULFATE 2.5 MG/3 ML NEBULIZER NEB PRN (17:50)
[2018-01-16] MEDS ORDERED: IBUPROFEN 200 MG TABLET PO PRN (17:55)
[2018-01-16] MEDS ORDERED: ALBUTEROL SULFATE 1 PUFF INHALER INH PRN (17:55)
--- NOTE | 2018-01-16 18:57 | Internal Med History&Physical ---
Medical - H&P: [facility] Patient information: Note initiated : 01/16/18 at 6:51 pm Service Date, if different from initiated Date: [] Patient: Caroline Bellamy a 77 y/o F admitted on 01/16/18 for Weakness. Chief Complaint: Weakness and dyspnea. History of present illness: Ms. Adiel Cardoso is a 77 year old F - Constitutional Constitutional: Present: anorexia, fatigue, weakness - Cardiovascular Cardiovascular: Present: dyspnea, dyspnea on exertion, leg edema, pedal edema - Respiratory Respiratory: Present: dyspnea, dyspnea on exertion, wheezing - Gastrointestinal Gastrointestinal: Present: bloating - Musculoskeletal Musculoskeletal: Present: joint swelling - Neurological Neurological: Present: dizziness, weakness Medical - H&P: PMH Medical history: Diverticulitis with perforation in 05/2017 with ileostomy, Pulmonary fibrosis?, CHF (diastolic), recent prolonged hospitalization for laporotomy and attempted reanastomosis (not possible) complicated by TPN and mechanical ventilation. Medical - H&P: Meds Home Medications Medication Instructions Recorded Confirmed Type Ibuprofen [Motrin] 200 mg PO Q4HP PRN 12/16/17 01/16/18 History Albuterol Sulfate [Ventolin] 1 dose NEB DAILY 12/23/17 01/16/18 History DULoxetine [Cymbalta] 30 mg PO DAILY #30 cap 01/15/18 01/16/18 Rx HYDROcodone/APAP 5/325MG [[place] 1 tab PO DAILYP PRN #60 tab 01/15/18 01/16/18 Rx 5-325Mg] Levofloxacin [Levaquin] 500 mg PO DAILY #10 tab 01/15/18 01/16/18 Rx Zolpidem Tartrate [Ambien] 5 mg PO QHS #30 tab 01/15/18 01/16/18 Rx Allergies Allergy/AdvReac Type Severity Reaction Status Date / Time Nitrous Oxide AdvReac Mild Hallucinati Verified 12/16/17 11:06 ng Medical - H&P: Exam - Constitutional Vitals: Temp Pulse Resp BP Pulse Ox 99.1 F H 86 18 121/68 96 01/16/18 14:12 01/16/18 18:36 01/16/18 18:36 01/16/18 18:36 01/16/18 18:36 General appearance: no acute distress, thin - Head Head exam: Present: atraumatic - Eye Eye exam: Present: EOMI - Neck Neck exam: Present: full ROM - Respiratory Respiratory exam: Present: decreased breath sounds, wheezes - GI/Abdominal GI/Abdominal exam: Present: distended, hypoactive bowel sounds Additional comments: Ileostomy and mucous fistula sites C&D - Rectal Rectal exam: Present: deferred Medical - H&P: Reslt - Labs CBC & Chem 7: 01/16/18 15:25 01/16/18 15:25 Labs: Short CBC 01/16/18 Range/Units 15:25 WBC 8.0 (4.5-11.0) K/mcL Hgb 11.3 L (12.0-15.0) g/dL Hct 34.5 L (36.0-48.0) % Plt Count 291 (140-440) K/mcL BMP 01/16/18 15:25 Sodium 137 Potassium 3.5 Chloride 96 Carbon Dioxide 25 BUN 7 L Creatinine 0.4 L Glucose 94 Calcium 9.4 Liver Function 01/16/18 Range/Units 15:25 Total Bilirubin 0.5 (0.0-1.0) mg/dL AST 12 (0-37) U/l ALT 7 (0-40) U/l Alkaline Phosphatase 70 (39-117) U/L Albumin 3.8 (3.2-5.2) gm/dL Urine 01/16/18 Range/Units 16:00 Urine Color Yellow Urine Appearance Clear Urine pH 6.0 (5.0-9.0) Ur Specific [place] 1.014 (1.000-1.035) Urine Protein Neg (NEG) mg/dL Urine Glucose (UA) Negative (NEG) mg/dL - ABG Interpretation ABG results: 01/16/18 17:02 ABG Methemoglobin 0.3 L VBG pH 7.42 VBG pCO2 39.0 L VBG pO2 89 H VBG HCO3 24.5 VBG Total CO2 25.7 VBG O2 Saturation 93.1 H VBG Base Excess 0.1 Medical - H&P: A/P - Narrative A/P Narrative: Acute hypoxemic respiratory failure complicating prolonged hospital stay for Pseudomonas peritonitis and respiratory failure - Observation admission - Qualify for home oxygen? - Home 01/17/18?
[2018-01-16] MEDS: ZOLPIDEM 5 MG TABLET PO SCH (21:00)
[2018-01-16] MEDS: 0.9 % SODIUM CHLORIDE 10 ML SYRINGE IV SCH (21:00)
[2018-01-16] MEDS: HYDROcodone/APAP 5/325MG TABLET PO PRN (21:00)
[2018-01-17] MEDS: HYDROcodone/APAP 5/325MG TABLET PO PRN ×4 (02:50→21:02)
[2018-01-17] MEDS: DULoxetine 30 MG CAPSULE PO SCH (09:16)
[2018-01-17] MEDS: LEVOFLOXACIN 500 MG TABLET PO SCH (09:17)
--- NOTE | 2018-01-17 13:55 | Internal Med Progress Note ---
Medical - PN: Subj Patient information: Note initiated : 01/17/18 at 12:26 pm Service Date, if different from initiated Date: [] Patient: Caroline Bellamy 77 y/o F admitted on 01/16/18 for Weakness. Chief Complaint: Patient reiterates with her family present that she wont be placed. Then patient does not qualify for home oxygen. Patient is ambulatory and has been tolerating PO nutrition since readmission. Patient states, after she does not qualify for home oxygen, that she will go to SNF. - Constitutional Vitals: Vital Signs Temp Pulse Resp BP Pulse Ox 99.1 F H 93 H 20 129/73 98 01/16/18 18:42 01/16/18 18:42 01/16/18 18:42 01/16/18 18:42 01/16/18 18:42 Period Temp Pulse Resp BP Sys/[place] Pulse Ox Last 24 Hr 99.1 F-99.1 F 41-105 18-29 117-155/68-119 93-100 Intake and Output 01/16/18 01/17/18 01/17/18 21:59 05:59 13:59 Intake Total 1050 / 1050 Balance 1050 / 1050 Weight 137 lb 5 oz Intake & Output: Intake & Output 01/16/18 01/17/18 01/17/18 21:59 05:59 13:59 Intake Total 1050 / 1050 Balance 1050 / 1050 Weight 137 lb 5 oz Intake: IV 1050 / 1050 Sodium Chloride 0.9% 1,000 ml @ 1000 / 1000 Wide Open IV BOLUS ONE Rx#: [id number] General appearance: cooperative, no acute distress, thin - Respiratory Respiratory exam: Present: decreased breath sounds, wheezes - Cardiovascular Cardiovascular exam: Present: normal rate and rhythm - GI/Abdominal GI/Abdominal exam: Present: hypoactive bowel sounds Medical - PN: Obj Da - Labs CBC & Chem 7: 01/16/18 15:25 01/16/18 15:25 Labs: Abnormal Lab Results 01/16/18 01/16/18 01/16/18 17:02 16:00 15:25 Hgb Hct RDW Gran % Lymph % (Auto) Lymph # (Auto) ABG Methemoglobin 0.3 L VBG pCO2 39.0 L VBG pO2 89 H VBG O2 Saturation 93.1 H Carboxyhemoglobin 3.9 H Total Hemoglobin 10.6 L BUN 7 L Creatinine 0.4 L Magnesium 1.5 L NT-Pro-B Natriuret Pep 6574.0 H Urine Ketones 80 A Ur Leukocyte Esterase 25 A Urine WBC 10 H Calcium Oxalate Crystal Few A Urine Bacteria Few A 01/16/18 15:25 Hgb 11.3 L Hct 34.5 L RDW 18.1 H Gran % 82.1 H Lymph % (Auto) 9.9 L Lymph # (Auto) 0.8 L ABG Methemoglobin VBG pCO2 VBG pO2 VBG O2 Saturation Carboxyhemoglobin Total Hemoglobin BUN Creatinine Magnesium NT-Pro-B Natriuret Pep Urine Ketones Ur Leukocyte Esterase Urine WBC Calcium Oxalate Crystal Urine Bacteria Meds: Medications Hydrocodone Bitart/Acetaminophen ([place] 5/325mg) 1 tab PO DAILYP PRN PRN Reason: Pain Albuterol Sulfate (Ventolin) 2.5 mg NEB Q2HP PRN PRN Reason: Shortness Of Breath Albuterol Sulfate (Ventolin) 0 puff INH Q4HP PRN PRN Reason: Shortness Of Breath Or Wheezing Duloxetine HCl (Cymbalta) 30 mg PO DAILY [facility] Last Admin: 01/17/18 09:16 Dose: Not Given Ibuprofen (Motrin) 200 mg PO Q4HP PRN PRN Reason: Pain Levofloxacin (Levaquin) 500 mg PO DAILY [facility] Last Admin: 01/17/18 09:17 Dose: 500 mg Sodium Chloride (Saline Flush) 10 ml IV Q8 [facility] Zolpidem Tartrate (Ambien) 5 mg PO QHS [facility] - ABG Interpretation ABG results: 01/16/18 17:02 ABG Methemoglobin 0.3 L VBG pH 7.42 VBG pCO2 39.0 L VBG pO2 89 H VBG HCO3 24.5 VBG Total CO2 25.7 VBG O2 Saturation 93.1 H VBG Base Excess 0.1 Medical - PN: A/P - Time Spent With Patient Total time spent is greater than 50% in coordination of care (as documented) at patient's floor/unit and/or counseling patient: - Narrative A/P Narrative: Failure to thrive post laporotomies with history of probable pulmonary fibrosis - SNF planning Medical - PN: Qual - VTE Deep Vein Thrombosis/Pulmonary Embolism Present on Admission: No
[2018-01-17] MEDS: 0.9 % SODIUM CHLORIDE 10 ML SYRINGE IV SCH ×3 (16:36→21:02)
[2018-01-17] MEDS: ZOLPIDEM 5 MG TABLET PO SCH (21:02)
[2018-01-18] MEDS: 0.9 % SODIUM CHLORIDE 10 ML SYRINGE IV SCH (06:10)
[2018-01-18] MEDS: HYDROcodone/APAP 5/325MG TABLET PO PRN ×2 (06:47→11:04)
[2018-01-18] MEDS: DULoxetine 30 MG CAPSULE PO SCH (09:51)
[2018-01-18] MEDS: LEVOFLOXACIN 500 MG TABLET PO SCH (09:51)
--- NOTE | 2018-01-18 10:20 | Discharge Summary ---
Medical - DS: Prov Patient information: Note initiated : 01/18/18 at 10:18 am Service Date, if different from initiated Date: [] Patient: Caroline Bellamy 77 y/o F admitted on 01/16/18 for Weakness. Chief Complaint: Weakness. Date of admission: 01/16/18 18:42 Discharge date: 01/18/18 Primary care physician: Montana Mohamud Admitting clinician: Vega Quintero Consults: 01/16/18 17:19 Consult to Physician [CONS] Stat Comment: Consulting Provider: Vega Quintero Reason For Exam: Physician to Consult 01/18/18 09:10 Consult to Physician [CONS] Routine Comment: Consulting Provider: [facility] Reason For Exam: Physician to Consult Medical - DS: Meds - Discharge Medications Prescriptions: HYDROcodone/APAP 5/325MG [[place] 5-325Mg] 1 tab PO Q4HP PRN #30 tablet PRN Reason: Pain Active and Home Medications: Home Medications Ibuprofen [Motrin] 200 mg PO Q4HP PRN 12/16/17 [History Confirmed 01/16/18 Last Taken 12/16/17] Albuterol Sulfate [Ventolin] 1 dose NEB DAILY 12/23/17 [History Confirmed Last Taken 12/22/17] DULoxetine [Cymbalta] 30 mg PO DAILY #30 cap 01/15/18 [Rx Confirmed 01/16/18 Last Taken Unknown] HYDROcodone/APAP 5/325MG [[place] 5-325Mg] 1 tab PO DAILYP PRN #60 tab 01/15/18 [ Rx Confirmed 01/16/18 Last Taken Unknown] Levofloxacin [Levaquin] 500 mg PO DAILY #10 tab 01/15/18 [Rx Confirmed 01/16/18 Last Taken Unknown] Zolpidem Tartrate [Ambien] 5 mg PO QHS #30 tab 01/15/18 [Rx Confirmed 01/16/18 Last Taken Unknown] Medical - DS: Hosp Hospital course: Mr. Adiel Cardoso is a 77 year old F who presented to the emergency room one day after discharge with multiple complaints including dyspnea and N/V. Patient was not hypoxemic and tolerated PO nutrition with N/V. Patient accepted placement to SNF. Patient will follow up with surgery as scheduled. Discharge diagnosis: Failure to thrive - Time Spent with Patient Total time spent providing and/or coordinating discharge services: Medical - DS: Exam - Constitutional Vitals: Vital Signs Temp Pulse Resp BP BP Pulse Ox 01/18/18 07:15 95 01/18/18 06:53 98.1 F 22 135/70 95 01/18/18 05:00 93 01/18/18 03:22 97.6 F 105 H 24 H 157/90 93 01/18/18 01:58 97 01/17/18 23:30 98.3 F 94 H 24 H 128/68 97 01/17/18 19:28 98.5 F 96 H 24 H 126/74 94 01/17/18 16:00 98.7 F 75 18 135/75 01/17/18 15:58 98.7 F 75 18 135/75 89 L 01/17/18 13:50 93 01/17/18 12:00 98.5 F 18 126/74 96 Intake and Output 01/17/18 01/18/18 01/18/18 21:59 05:59 13:59 Intake Total 340 / 340 300 / 300 Output Total 625 / 625 775 / 775 900 / 900 Balance -285 / -285 -475 / -475 -900 / -900 Intake: Oral 340 / 340 300 / 300 Output: Void Amount 625 / 625 650 / 650 900 / 900 Stool 125 / 125 Other: Meal Lunch Percent of Meal Consumed bites # Voids 1 Weight 136 lb Medical - DS: A/P - Patient/Caregiver Discharge Instructions Activity: as per physical therapy Diet: Regular Diet Prescriptions: HYDROcodone/APAP 5/325MG [[place] 5-325Mg] 1 tab PO Q4HP PRN #30 tablet PRN Reason: Pain - Follow up Plan Follow up with: Montana Mohamud MD [Primary Care Provider] - Disposition: Xfer SNF Prognosis: Serious Rehab Potential: Fair I certify that the patient requires SNF services: Yes Overall status at discharge: patient is progressing back to baseline Medical - DS: Qual - VTE Deep Vein Thrombosis/Pulmonary Embolism Present on Admission: No
[2018-01-18 12:08] LABS: Appearance,Urine CLEAR; Bacteria,Urine FEW /hpf (0); Bilirubin,Urine NEG (NEG); Color,Urine YELLOW; Glucose,Urine (UA) NEGATIVE (NEG); Leukocyte Esterase,Urine 75 /uL (NEG); Mucus,Urine FEW /hpf (0); Protein,Urine NEG (NEG); Specific Gravity,Urine 1.016 (1.000-1.035); Urine Blood NEG mg/dL (<0.03); Urine Granular Cast 1 /lpf (0); Urine Hyaline Cast 5 /lpf (0-2); Urine RBC 2 /hpf (0-1); Urine Squamous Epithelial Cell 2 /hpf (0-4); Urine Transitional Epi Cells 2 /hpf (0-2); Urine WBC 27 /hpf (0-4); Urobilinogen,Urine NEG (NEG)
== END 2018-01-18 13:34 ==
LOC: ED 14:11 → MEDSUR 18:42 → INTOOBSV 18:42 → MEDSUR 18:46
PROVIDERS: ADMIT Internal Medicine; ATTEND Internal Medicine

== ENCOUNTER 2018-04-06 14:05 | Inpatient (IN) ==
--- NOTE | 2018-04-06 14:36 | Emergency Department Note ---
Weakness HPI - General Chief complaint: Weakness Stated complaint: body aches Time Seen by Provider: 04/06/18 14:15 Source: patient, family Mode of arrival: ambulatory Limitations: no limitations - History of Present Illness HPI Narrative: 77-year-old female presents with weakness and body aches 3 days. She is feeling ill. She denies any cold symptoms. She thought she was getting a fever but that has subsided. She has a colostomy bag due to abdominal surgeries. She denies significant abdominal pain. She did have some vomiting on her way down here. She has a mild temperature increase of 99.6. She denies any urinary symptoms. She denies any shortness of breath or cough. She denies any chest pain. She denies any dizziness. She feels dehydrated. She states she had to take an antidiarrheal today because she was having more stool in her bag than normal. She states this is relatively normal for her to have to take an antidiarrheal and she is allowed to take one every day. She states today is pretty normal. She is not nauseated now. She has been able to drink water today. She has had about 3-4 abdominal surgeries in the past year. - Related Data Home Medications Medication Instructions Recorded Confirmed albuterol sulfate HFA 90 1 inh INHALATION ONCE PRN g 03/30/18 03/30/18 mcg/actuation aerosol inhaler Previous Rx's Medication Instructions Recorded DULoxetine [Cymbalta] 30 mg PO DAILY #30 cap 01/15/18 zolpidem 10 mg tablet 5 mg PO QHS #30 tab 02/11/18 Allergies Allergy/AdvReac Type Severity Reaction Status Date / Time Nitrous Oxide AdvReac Mild Hallucinati Verified 04/06/18 14:09 ng Review of Systems All systems ED: reviewed and negative except as stated. Past Medical History - Past Medical History Medical history: Reports: arthritis, asthma, other (pulmonary fibrosis, proximal humeral fracture). Denies: cancer, coronary artery disease, CVA, DM, hypertension, myocardial infarction, TIA Psychiatric history: Reports: no psych history CONFORMAL PAD FORMER history: Reports: bilateral tubal ligation Surgical history ED: Reports: appendectomy, cataract, cholecystectomy, colostomy , other (cardiac ablation of E- pathway, carpal tunnel (2 left, 1 right (?)), left arm nerve (ulnar n.?), cervical fusion multilevel, bilateral breast implants.) Family history: Reports: non-contributory - Social History smoking status: Never smoker Alcohol use: Reports: None, Occasionally (1-2 wine per week.) Drug use: Reports: none Physical Exam Limitations: no limitations General appearance: alert, in no apparent distress Head: atraumatic Eye: Present: normal appearance. Absent: conjunctival injection Neck: Present: normal inspection, full ROM Chest: Present: normal inspection, symmetric chest wall rise Respiratory: Present: other (Mild decrease in the lower lobes) Cardiovascular: Present: tachycardia, normal heart sounds Abdominal: Present: soft, tenderness, normal bowel sounds. Absent: distention, guarding, rebound, rigidity Abdominal tenderness: Present: epigastrium, suprapubic, mild Extremities: Present: normal inspection, full ROM Neurological: Present: alert, oriented X3 Psychiatric: Present: normal affect, normal mood Skin: Present: warm, dry, intact Course Vital Signs Temperature 99.6 F H 04/06/18 14:06 Pulse Rate 105 H 04/06/18 14:06 Respiratory Rate 18 04/06/18 14:06 Blood Pressure 126/68 04/06/18 14:06 Pulse Oximetry (%) 95 04/06/18 14:06 Temperature 98.1 F 04/06/18 16:03 Pulse Rate 88 04/06/18 17:56 Respiratory Rate 20 04/06/18 17:56 Blood Pressure 126/68 04/06/18 14:06 Pulse Oximetry (%) 98 04/06/18 17:56 Weakness - MDM Narrative Medical decision making narrative: Significant elevation of LFTs, bilirubin, and alk phos. GI consulted and she will have an ERCP done today. Because of the urgency of her elevation in her enzymes with previously normal enzymes this is done first. Treated with Rocephin as well as Zosyn. - Lab Data Lab results reviewed: Yes I reviewed the patient's lab results. Result diagrams: 04/06/18 14:26 04/06/18 14:26 Lab Results 04/06/18 04/06/18 04/06/18 Range/Units 14:26 14:26 15:00 WBC 6.4 (4.5-11.0) K/mcL RBC 4.32 (4.00-5.20) M/mcL Hgb 11.8 L (12.0-15.0) g/dL Hct 34.2 L (36.0-48.0) % MCV 79.2 L (80.0-100.0) fL MCH 27.3 (26.0-34.0) pg MCHC 34.4 (31.0-36.0) g/dL RDW 14.4 (11.5-14.5) % Plt Count 217 (140-440) K/mcL MPV 8.4 (7.4-10.4) fL Total Counted 150 Seg Neutrophils % 88 H (38-78) % Band Neutrophils % Not Reportable Lymphocytes % 7 L (15-49) % Monocytes % (Manual) 5 (1-12) % Platelet Estimate Normal (NORMAL) RBC Morphology Abnorm A (NORMAL) Microcytosis 1+ A (NONE SEEN) VBG Lactic Acid (0.5-2.2) mmol/L Sodium 131 L (133-145) mmol/L Potassium 4.2 (3.3-5.1) mmol/L Chloride 93 L (96-108) mmol/L Carbon Dioxide 21 L (22-30) mmol/L Anion Gap 17.0 H (8-16) BUN 14 (8-23) mg/dl Creatinine 0.7 (0.6-1.1) mg/dl GFR Calculation 85 Glucose 113 H (70-105) mg/dL Calcium 9.3 (8.6-10.4) mg/dl Total Bilirubin 1.6 H (0.0-1.0) mg/dL AST 308 H (0-37) U/l ALT 253 H (0-40) U/l Alkaline Phosphatase 592 H (39-117) U/L Total Protein 7.0 (5.9-8.4) gm/dL Albumin 3.9 (3.2-5.2) gm/dL Globulin 3.1 (2.2-3.7) gm/dL Albumin/Globulin Ratio 1.3 (1.0-2.3) Lipase 44 (7-60) U/L Urine Color Yellow Urine Appearance Hazy Urine pH 5.0 (5.0-9.0) Ur Specific [place] 1.017 (1.000-1.035) Urine Protein Neg (NEG) mg/dL Urine Glucose (UA) Negative (NEG) mg/dL Urine Ketones 5/tr A (NEG) mg/dL Urine Occult Blood Neg (<0.03) mg/dL Urine Nitrate Neg (NEG) Urine Bilirubin Neg (NEG) mg/dL Urine Urobilinogen Neg (NEG) mg/dL Ur Leukocyte Esterase Neg (NEG) /uL Urine RBC 1 (0-1) /hpf Urine WBC 3 (0-4) /hpf Ur Squamous Epith Cells 1 (0-4) /hpf Urine Bacteria Few A (0) /hpf Urine Mucus Mod (0) /hpf Ur Culture Indicated? Yes 04/06/18 Range/Units 15:27 WBC (4.5-11.0) K/mcL RBC (4.00-5.20) M/mcL Hgb (12.0-15.0) g/dL Hct (36.0-48.0) % MCV (80.0-100.0) fL MCH (26.0-34.0) pg MCHC (31.0-36.0) g/dL RDW (11.5-14.5) % Plt Count (140-440) K/mcL MPV (7.4-10.4) fL Total Counted Seg Neutrophils % (38-78) % Band Neutrophils % Lymphocytes % (15-49) % Monocytes % (Manual) (1-12) % Platelet Estimate (NORMAL) RBC Morphology (NORMAL) Microcytosis (NONE SEEN) VBG Lactic Acid 0.7 (0.5-2.2) mmol/L Sodium (133-145) mmol/L Potassium (3.3-5.1) mmol/L Chloride (96-108) mmol/L Carbon Dioxide (22-30) mmol/L Anion Gap (8-16) BUN (8-23) mg/dl Creatinine (0.6-1.1) mg/dl GFR Calculation Glucose (70-105) mg/dL Calcium (8.6-10.4) mg/dl Total Bilirubin (0.0-1.0) mg/dL AST (0-37) U/l ALT (0-40) U/l Alkaline Phosphatase (39-117) U/L Total Protein (5.9-8.4) gm/dL Albumin (3.2-5.2) gm/dL Globulin (2.2-3.7) gm/dL Albumin/Globulin Ratio (1.0-2.3) Lipase (7-60) U/L Urine Color Urine Appearance Urine pH (5.0-9.0) Ur Specific [place] (1.000-1.035) Urine Protein (NEG) mg/dL Urine Glucose (UA) (NEG) mg/dL Urine Ketones (NEG) mg/dL Urine Occult Blood (<0.03) mg/dL Urine Nitrate (NEG) Urine Bilirubin (NEG) mg/dL Urine Urobilinogen (NEG) mg/dL Ur Leukocyte Esterase (NEG) /uL Urine RBC (0-1) /hpf Urine WBC (0-4) /hpf Ur Squamous Epith Cells (0-4) /hpf Urine Bacteria (0) /hpf Urine Mucus (0) /hpf Ur Culture Indicated? - Radiology Data Radiology results reviewed: Yes I reviewed the patient's radiology results. Normal bowel pattern. Residual or recurrent bilateral pleural effusions and right lower lobe atelectasis or pneumonia IMPRESSION: Dilated intra and extrahepatic ducts. This could be a reservoir effect following a prior cholecystectomy or a stricture at the ampulla. Disposition Pt seen by PLANNING AIDE/PA only: No Clinical Impression: Cholangitis Disposition: Xfer As Outpt/Obs ([facility]) Condition: Fair
[2018-04-06] MEDS ORDERED: 0.9 % SODIUM CHLORIDE 1,000 ML IV ONE ×2 (14:38→17:30)
[2018-04-06] MEDS ORDERED: ACETAMINOPHEN 325 MG TABLET PO ONE (14:39)
[2018-04-06 15:00] LABS: Mean Cell Volume 79.2 fL (80.0-100.0); Mean Corpuscular HGB Conc 34.4 g/dL (31.0-36.0); Mean Corpuscular Hemoglobin 27.3 pg (26.0-34.0); Platelet Count 217 K/mcL (140-440); RBC 4.32 M/mcL (4.00-5.20); Red Cell Distribution Width 14.4 % (11.5-14.5)
[2018-04-06] MEDS ORDERED: cefTRIAXone 1 GM VIAL IV ONE (15:29)
[2018-04-06 15:43] LABS: ALT/SGPT 253 U/l (0-40); Albumin 3.9 gm/dL (3.2-5.2); Albumin/Globulin Ratio 1.3 (1.0-2.3); Alkaline Phosphatase 592 U/L (39-117); Blood Urea Nitrogen 14 mg/dl (8-23); Lipase 44 U/L (7-60)
[2018-04-06 15:47] LABS: Lymphocytes % 7 % (15-49); Monocytes % (Manual) 5 % (1-12); Platelet Estimate NORMAL (NORMAL); RBC Morphology ABNORM (NORMAL); Segmented Neutrophils % 88 % (38-78)
[2018-04-06 16:22] LABS: Appearance,Urine HAZY; Bacteria,Urine FEW /hpf (0); Bilirubin,Urine NEG (NEG); Color,Urine YELLOW; Glucose,Urine (UA) NEGATIVE (NEG); Leukocyte Esterase,Urine NEG /uL (NEG); Mucus,Urine MOD /hpf (0); Protein,Urine NEG (NEG); Specific Gravity,Urine 1.017 (1.000-1.035); Urine Blood NEG mg/dL (<0.03); Urine RBC 1 /hpf (0-1); Urine Squamous Epithelial Cell 1 /hpf (0-4); Urine WBC 3 /hpf (0-4); Urobilinogen,Urine NEG (NEG)
--- NOTE | 2018-04-06 16:45 | XRay Report ---
HISTORY: : weakness FINDINGS: Small bilateral pleural effusions are present. There is mild consolidation of the right lower lobe which extends up to the right hilum. Larger bilateral pleural effusions and bilateral infiltrates were present on 01/16/18. The left upper lobe is hyperlucent and there is attenuation of the peripheral pulmonary vessels in both upper lobes due to emphysema. The heart size is normal. There are few granulomata in the upper thorax bilaterally. Incidentally noted are calcifications in the capsules of both breast implants. IMPRESSION: Residual or recurrent bilateral pleural effusions and right lower lobe atelectasis or pneumonia Interpreted and Authenticated by: Varghese Reich 04/06/18
--- NOTE | 2018-04-06 16:57 | XRay Report ---
HISTORY: : weakness vomiting FINDINGS: The bowel gas pattern is normal. No free intra-abdominal air is present. There is an ostomy in the right side of the pelvis. In the midline and left lower pelvis there are multiple surgical clips and sutures. There are also clips in the gallbladder fossa. Air-fluid level is seen within a nondistended stomach. Large and small bowel are decompressed. There are small bilateral pleural effusions and atelectasis or small infiltrates in the lung bases. Numerous calcified lymph nodes are present near the gastroesophageal junction. IMPRESSION: Normal bowel pattern. Pleural effusions Interpreted and Authenticated by: Varghese Reich 04/06/18
--- NOTE | 2018-04-06 17:26 | Ultrasound Report ---
Elevated liver enzymes and bilirubin level FINDINGS: Patient was technically difficult to scan due to body habitus and a colostomy bag. The liver is normal in size. The parenchyma is somewhat echogenic suggesting mild fatty infiltration. There is no evidence of a liver mass. Doppler shows normal blood flow in the hepatic and portal veins. There is dilatation of the intra and extrahepatic bile ducts. Proximal common bile duct measures 10.9 mm and distal duct is 7.8 mm. Dilatation of bile ducts was present on the prior abdomen CT done on 06/13/17. This has not changed significantly. The gallbladder surgically absent. The pancreas was incompletely visualized. The visualized portions appear normal. Trace amount free fluid is seen in the right side of the abdomen. No abscess is identified. IMPRESSION: Dilated intra and extrahepatic ducts. This could be a reservoir effect following a prior cholecystectomy or a stricture at the ampulla. Interpreted and Authenticated by: Varghese Reich 04/06/18
[2018-04-06] MEDS ORDERED: PROPOFOL 200 MG/20 ML VIAL IV ONE ×3 (17:46→22:15)
[2018-04-06] MEDS ORDERED: NITROGLYCERIN 0.6 MG/HR PATCH TD ONE (17:46)
[2018-04-06] MEDS ORDERED: MIDAZOLAM 2 MG/2 ML VIAL IV ONE ×3 (17:47→22:15)
[2018-04-06] MEDS ORDERED: PIPERACILLIN SODIUM/TAZOBACTAM 3.375 GM in DEXTROSE 5% IN WATER 50 ML IV ONE (17:54)
[2018-04-06] MEDS ORDERED: PROPOFOL 60 ML IV ONE (18:01)
[2018-04-06] MEDS ORDERED: MIDAZOLAM 2 MG/2 ML VIAL ONE (18:01)
[2018-04-06] MEDS ORDERED: INDOMETHACIN 25 MG CAPSULE PO ONE ×2 (18:07→21:00)
[2018-04-06] MEDS ORDERED: PIPERACILLIN SODIUM/TAZOBACTAM 4.5 GM in DEXTROSE 5% IN WATER 50 ML IV SCH (18:15)
--- NOTE | 2018-04-06 18:27 | Internal Med History&Physical ---
Medical - H&P: HPI Patient information: Note initiated : 04/06/18 at 6:24 pm Service Date, if different from initiated Date: [] Patient: Caroline Bellamy a 77 y/o F admitted on for body aches. Chief Complaint: [] History of present illness: Ms. Adiel Cardoso is a 77 year old F with multiple bowel surgeries, history of colostomy presents to the hospital today for not feeling well for the last few days. The patient notes that she has been sick generalized weakness malaise arthralgia for the last 3 days. Since yesterday she is also having decreased appetite nausea as well as chills and rigors. The patient's family decided to bring her in today to the hospital. This morning she is did not eat much and had continuous retching with some emesis bilious in nature. The patient denies any other complaints. No sick contacts. She has been taking Claritin over the last 3-4 days. She has a colostomy bag which is draining no blood reported. She denies any nausea or abdominal pain no change in symptomatology associated with food. She has history of cholecystectomy done. In the ER patient had a low-grade temperature of 99.3, mildly tachycardic at 105 blood pressure was stable, the patient had a normal white blood cell count, hemoglobin 11.8, lactic acid normal, patient had a sodium of 131 potassium 4.2 total bilirubin 1.6 AST 308 ALT 253 alkaline phosphatase 592. Significant elevation from the previous labs. GI was consulted, Dr. Pack will be performing an ERCP soon. Patient had an ultrasound done which showed dilated CBD as well as intra-and extrahepatic biliary ducts she status post cholecystectomy. All systems: reviewed and no additional remarkable complaints except as stated ( 10 point ROS done negative except as noted in the HPI) Medical - H&P: PMH Medical history: Medical History (Last Reviewed 03/31/18 @ 13:19 by Amada Eubanks MD) Spasm of paraspinal muscle (Acute) Muscle spasm of back (Acute) Thoracic back pain (Acute) Surgical history: Past Surgical History (Last Reviewed 03/31/18 @ 13:19 by Amada Eubanks MD) History of appendectomy (Acute) History of cholecystectomy (Acute) History of open sigmoidectomy (Acute) History of surgery (Acute) Family history: reviewed and not pertinent Medical - H&P: Meds Home Medications Medication Instructions Recorded Confirmed Type DULoxetine [Cymbalta] 30 mg PO DAILY #30 cap 01/15/18 03/30/18 Rx zolpidem 10 mg tablet 5 mg PO QHS #30 tab 02/11/18 03/30/18 Rx albuterol sulfate HFA 90 1 inh INHALATION ONCE PRN g 03/30/18 03/30/18 History mcg/actuation aerosol inhaler Allergies Allergy/AdvReac Type Severity Reaction Status Date / Time Nitrous Oxide AdvReac Mild Hallucinati Verified 04/06/18 14:09 ng Medical - H&P: Exam - Constitutional Vitals: Temp Pulse Resp BP Pulse Ox 98.1 F 88 20 126/68 98 04/06/18 16:03 04/06/18 17:56 04/06/18 17:56 04/06/18 14:06 04/06/18 17:56 Exam: GENERAL: The patient is a well-developed, well-nourished in no apparent distress. Is alert and oriented x3. VITAL SIGNS: Reviewed and as noted elsewhere. HEENT: Head is normocephalic and atraumatic. Extraocular muscles are intact. Pupils are equal, round, and reactive to light. Nares appeared normal. Mouth appears any without lesions. Mucous membranes are dry . NECK: Normal to inspection, Supple, No lymphadenopathy or thyromegaly. LUNGS: Air entry equal on both sides, no wheezing, crackles or rhonchi noted. No accessory muscles of respiration HEART: Regular rate and rhythm normal, S1 and S2 heard, no Gallop, S3 or Rub Noted, No Gross murmur heard. ABDOMEN: Soft, nontender, and nondistended. Positive bowel sounds. No hepatosplenomegaly was noted. Colostomy bag in place, Bourgeois sign negative on abdominal exam EXTREMITIES: No cyanosis, clubbing, rash, lesions or edema. NEUROLOGIC: Cranial nerves II through XII are grossly intact. Motor and Sensory System Grossly Intact PSYCHIATRIC: Normal affect, Normal Mood. Appropriate Behavior. SKIN: No ulceration or wounds noted, No jaundice, No rash noted. Medical - H&P: Reslt - Labs CBC & Chem 7: 04/06/18 14:26 04/06/18 14:26 Labs: Short CBC 04/06/18 Range/Units 14:26 WBC 6.4 (4.5-11.0) K/mcL Hgb 11.8 L (12.0-15.0) g/dL Hct 34.2 L (36.0-48.0) % Plt Count 217 (140-440) K/mcL BMP 04/06/18 14:26 Sodium 131 L Potassium 4.2 Chloride 93 L Carbon Dioxide 21 L BUN 14 Creatinine 0.7 Glucose 113 H Calcium 9.3 Liver Function 04/06/18 Range/Units 14:26 Total Bilirubin 1.6 H (0.0-1.0) mg/dL AST 308 H (0-37) U/l ALT 253 H (0-40) U/l Alkaline Phosphatase 592 H (39-117) U/L Albumin 3.9 (3.2-5.2) gm/dL Urine 04/06/18 Range/Units 15:00 Urine Color Yellow Urine Appearance Hazy Urine pH 5.0 (5.0-9.0) Ur Specific [place] 1.017 (1.000-1.035) Urine Protein Neg (NEG) mg/dL Urine Glucose (UA) Negative (NEG) mg/dL Medical - H&P: A/P - Narrative A/P Narrative: A/P Ascending Cholangitis- Elevated lft, chills, low grade temp, dilated biliarry ducts, urgent ERCP by [facility]. Sepsis- low grade temp, fever, GI source possible Chronic pain/ Anxiety- resume home meds. insomnia, zolpidem prn DVT hep sq Diet NPO for now Full code. Social History - Tobacco smoking status: Never smoker - Alcohol alcohol intake frequency: holiday/special occasion only
[2018-04-06] MEDS ORDERED: IOPAMIDOL 100 ML BOTTLE IJ ONE (18:30)
[2018-04-06] MEDS ORDERED: LEVOFLOXACIN 500 MG/100 ML BAG IV ONE ×2 (18:46→18:55)
[2018-04-06] MEDS ORDERED: NALOXONE HCL 0.4 MG/ML VIAL IV PRN ×2 (19:34→22:15)
[2018-04-06] MEDS ORDERED: HYDROmorphone 2 MG/ML VIAL IV PRN ×2 (19:34→22:15)
[2018-04-06] MEDS ORDERED: DEXTROSE 5%-1/2NS 1,000 ML IV SCH (19:34)
[2018-04-06] MEDS ORDERED: ONDANSETRON 4 MG/2 ML VIAL IV PRN ×2 (19:34→22:15)
[2018-04-06] MEDS ORDERED: IPRATROPIUM/ALBUTEROL 3 ML AMPUL.NEB NEB SCH (19:34)
[2018-04-06] MEDS ORDERED: ACETAMINOPHEN 325 MG TABLET PO PRN ×2 (19:34→22:15)
[2018-04-06] MEDS ORDERED: oxyCODONE HCL 5 MG TABLET PO PRN ×2 (19:34→22:15)
[2018-04-06] MEDS ORDERED: IPRATROPIUM/ALBUTEROL 3 ML AMPUL.NEB NEB ONE (20:02)
[2018-04-06] MEDS ORDERED: 0.9 % SODIUM CHLORIDE 1,000 ML IV SCH ×2 (20:45→22:15)
[2018-04-06] MEDS ORDERED: IPRATROPIUM/ALBUTEROL 3 ML AMPUL.NEB NEB PRN ×2 (20:45→22:15)
[2018-04-06] MEDS ORDERED: FAMOTIDINE/PF 20 MG/2 ML VIAL IV SCH (21:00)
[2018-04-06] MEDS ORDERED: HEPARIN 5,000 UNIT/ML VIAL SQ SCH (21:00)
[2018-04-06] MEDS ORDERED: METOPROLOL TARTRATE 5 MG/5 ML VIAL IV ONE (21:13)
[2018-04-06] MEDS: METOPROLOL TARTRATE 5 MG/5 ML VIAL IV SCH ×2 (21:26→22:00)
[2018-04-06 21:42] LABS: Basophils # (Auto) 0.1 K/mcL (0.0-0.3); Basophils % (Auto) 1.1 % (0.0-2.0); Eosinophils # (Auto) 0 K/mcL (0.0-0.7); Eosinophils % (Auto) 0.3 % (0.0-7.0); Granulocytes % (Auto) 92.9 % (38.0-78.0); Lymphocytes # (Auto) 0.3 K/mcL (1.5-4.8); Lymphocytes % (Auto) 5.1 % (15.5-49.0); Mean Cell Volume 79.1 fL (80.0-100.0); Mean Corpuscular HGB Conc 32.4 g/dL (31.0-36.0); Mean Corpuscular Hemoglobin 25.6 pg (26.0-34.0); Monocytes # (Auto) 0 K/mcL (0.1-0.9); Monocytes % (Auto) 0.6 % (1.0-12.0); Platelet Count 225 K/mcL (140-440); RBC 4.68 M/mcL (4.00-5.20); Red Cell Distribution Width 13.4 % (11.5-14.5)
[2018-04-06 21:53] LABS: ALT/SGPT 224 U/l (0-40); Albumin 3.8 gm/dL (3.2-5.2); Albumin/Globulin Ratio 1.2 (1.0-2.3); Alkaline Phosphatase 554 U/L (39-117); Blood Urea Nitrogen 13 mg/dl (8-23)
[2018-04-06] MEDS ORDERED: 0.9 % SODIUM CHLORIDE 10 ML SYRINGE IV SCH (22:00)
[2018-04-06] MEDS ORDERED: VANCOMYCIN 1,000 MG in 0.9 % SODIUM CHLORIDE 250 ML IV ONE (22:15)
[2018-04-06] MEDS ORDERED: LORazepam 2 MG/ML VIAL IV PRN (22:15)
[2018-04-06] MEDS ORDERED: VANCOMYCIN PER PHARMACY IV SCH (22:15)
[2018-04-06] MEDS ORDERED: 0.9 % SODIUM CHLORIDE 250 ML IV ONE (22:17)
[2018-04-06] MEDS ORDERED: LORazepam 2 MG/ML VIAL ONE (22:26)
[2018-04-06] MEDS ORDERED: methylPREDNISolone SOD SUCC 125 MG/2 ML VIAL ONE (22:31)
[2018-04-06] MEDS: methylPREDNISolone SOD SUCC 125 MG/2 ML VIAL IV SCH (22:44)
[2018-04-06] MEDS: PIPERACILLIN SODIUM/TAZOBACTAM 4.5 GM in DEXTROSE 5% IN WATER 50 ML IV SCH (23:41)
[2018-04-07] MEDS ORDERED: PIPERACILLIN SODIUM/TAZOBACTAM 4.5 GM in DEXTROSE 5% IN WATER 50 ML IV SCH
[2018-04-07] MEDS: IPRATROPIUM/ALBUTEROL 3 ML AMPUL.NEB NEB SCH ×4 (04:46→18:57)
[2018-04-07 05:50] LABS: Basophils # (Auto) 0 K/mcL (0.0-0.3); Basophils % (Auto) 0 % (0.0-2.0); Eosinophils # (Auto) 0 K/mcL (0.0-0.7); Eosinophils % (Auto) 0 % (0.0-7.0); Granulocytes % (Auto) 96.6 % (38.0-78.0); Lymphocytes # (Auto) 0.2 K/mcL (1.5-4.8); Lymphocytes % (Auto) 1.3 % (15.5-49.0); Mean Cell Volume 80.5 fL (80.0-100.0); Mean Corpuscular HGB Conc 33.6 g/dL (31.0-36.0); Mean Corpuscular Hemoglobin 27.1 pg (26.0-34.0); Monocytes # (Auto) 0.4 K/mcL (0.1-0.9); Monocytes % (Auto) 2.1 % (1.0-12.0); Platelet Count 217 K/mcL (140-440); RBC 4.14 M/mcL (4.00-5.20); Red Cell Distribution Width 14.3 % (11.5-14.5)
[2018-04-07 06:15] LABS: ALT/SGPT 192 U/l (0-40); Albumin 3.4 gm/dL (3.2-5.2); Albumin/Globulin Ratio 1.2 (1.0-2.3); Alkaline Phosphatase 514 U/L (39-117); Bilirubin,Direct 2.3 mg/dL (0.0-0.3); Blood Urea Nitrogen 17 mg/dl (8-23); Gamma Glutamyl Transpeptidase 544 U/L (5-36); Lipase 54 U/L (7-60); Uric Acid 5.2 mg/dL (2.5-8.0)
[2018-04-07] MEDS: PIPERACILLIN SODIUM/TAZOBACTAM 4.5 GM in DEXTROSE 5% IN WATER 50 ML IV SCH ×3 (06:30→19:59)
[2018-04-07] MEDS: 0.9 % SODIUM CHLORIDE 10 ML SYRINGE IV SCH ×3 (06:35→21:37)
--- NOTE | 2018-04-07 07:14 | Emergency Department Note ---
ED Note Addendum Note Addendum: I saw this patient with Tanvi Ritter PA-C. I agree with her evaluation management documentation. In particular concern for choledocholithiasis in light of her labs and temperature. She initially discussed the patient with Dr. De La Cruz in GI but Dr. De La Cruz handed off the case to Dr. Pack. I discussed the case with him and he agreed to do an ERCP soon. Tanvi contacted Dr. Collins the hospitalist for admission
[2018-04-07] MEDS: methylPREDNISolone SOD SUCC 125 MG/2 ML VIAL IV SCH ×3 (07:31→21:35)
--- NOTE | 2018-04-07 07:58 | XRay Report ---
HISTORY: History: Dyspnea FINDINGS: There are generalized alveolar infiltrates throughout both lungs with greatest consolidation around the right hilum and medially in the right lower lobe. This has become significantly worse since earlier study done at 14:50. Current study was done at 20:48. The heart size is normal. There are small bilateral pleural effusions causing blunting of the costophrenic sulci. Incidentally noted is fractured right clavicle. IMPRESSION: Rapidly worsening bilateral infiltrates. The rapid deterioration is more frequently seen with congestive heart failure and pulmonary edema rather than pneumonia. However, the heart has not enlarged. Interpreted and Authenticated by: Varghese Reich 04/07/18
[2018-04-07] MEDS ORDERED: IOPAMIDOL 100 ML BOTTLE IV ONE (08:09)
--- NOTE | 2018-04-07 08:45 | Cat Scan Report ---
CLINICAL INFORMATION: Rising serum bilirubin level with dilated bile ducts seen on ultrasound COMPARISON: Ultrasound on 04/06/18 TECHNIQUE: Following oral contrast and the injection of intravenous contrast the patient was scanned during the portal venous phase from the diaphragm through the symphysis pubis. Sagittal and coronal reformats were created.. The radiation exposure was limited using dose reduction technology. FINDINGS: Moderate-sized bilateral layering pleural effusions are present. Associated with this is partial atelectasis in the basilar segments of both lower lobes. Patient has multiple calcified lymph nodes in the mediastinum suggesting old granulomatous disease. There are bilateral breast implants with dense calcifications along the capsules. The liver is normal in size. There is a small amount of air within the intrahepatic ducts in the lateral segment left lobe. Also within the lateral segment left lobe, adjacent to the falciform ligament there is a small vascular malformation. This could be an AVM. Measures approximately 1 cm in size. The gallbladder is surgically absent. The common hepatic duct measures 7 mm. Proximal common bile duct is 6 mm. As the common bile duct passes through the head of the pancreas to the ampulla tapers from 5 to 4 mm in size. The duct is smaller on the CT scan than was seen on the There is a colostomy in the right anterior abdominal wall. Multiple diverticula are present in the colon. There is no evidence of acute diverticulitis or bowel obstruction. A ventral hernia is present anterolaterally in the left mid abdominal wall which contains a segment of colon. There is no associated inflammation or bowel obstruction. No ascites is present and there is no adenopathy mass or abscess within the abdomen or pelvis. The adrenals and kidneys are normal. The aorta is normal in caliber. There is plaque formation in the aorta. 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 IMPRESSION: Normal caliber bile ducts. Small amount of air within the intrahepatic ducts in the left lobe. Has the patient had recent instrumentation of the bile ducts or a prior papillotomy? If not, infection should be considered. 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
[2018-04-07] MEDS: FAMOTIDINE/PF 20 MG/2 ML VIAL IV SCH ×2 (08:52→21:35)
[2018-04-07] MEDS: LEVOFLOXACIN 250 MG/50 ML BAG IV SCH (08:52)
[2018-04-07] MEDS: HEPARIN 5,000 UNIT/ML VIAL SQ SCH ×2 (08:54→21:35)
[2018-04-07] MEDS ORDERED: LEVOFLOXACIN 250 MG/50 ML BAG IV SCH (09:00)
--- NOTE | 2018-04-07 09:30 | Internal Med Progress Note ---
Medical - PN: Subj Patient information: Note initiated : 04/07/18 at 9:27 am Service Date, if different from initiated Date: [] Patient: Caroline Bellamy a 77 y/o F admitted on 04/06/18 for body aches. Chief Complaint: [] Interval history: Ms. Adiel Cardoso is a 77 year old F with multiple bowel surgeries, history of colostomy presents to the hospital today for not feeling well for the last few days. The patient notes that she has been sick generalized weakness malaise arthralgia for the last 3 days. Since yesterday she is also having decreased appetite nausea as well as chills and rigors. The patient's family decided to bring her in today to the hospital. This morning she is did not eat much and had continuous retching with some emesis bilious in nature. The patient denies any other complaints. No sick contacts. She has been taking Claritin over the last 3-4 days. She has a colostomy bag which is draining no blood reported. She denies any nausea or abdominal pain no change in symptomatology associated with food. She has history of cholecystectomy done. In the ER patient had a low-grade temperature of 99.3, mildly tachycardic at 105 blood pressure was stable, the patient had a normal white blood cell count, hemoglobin 11.8, lactic acid normal, patient had a sodium of 131 potassium 4.2 total bilirubin 1.6 AST 308 ALT 253 alkaline phosphatase 592. Significant elevation from the previous labs. GI was consulted, Dr. Pack will be performing an ERCP soon. Patient had an ultrasound done which showed dilated CBD as well as intra-and extrahepatic biliary ducts she status post cholecystectomy. 04/07 Patient seen examined, last night had one episode of sob with tachycardia, pt doing better today CXR shows justin infiltrates worsening acutely, clinicaly she remains dry, bnp was not very elevated and IVC was collapsing > 50% on POC usg. likely pna vs inflammatory response she also was wheezing, and hence started on iv steroids, labs show leucocytosis today, lft trending down, justin up, justin usually lags ast/alt wikl monitor continue broad spectrum abx for now, will review plan with GI CT abdomen pelvis , neg for acute pathology, air in the hepatobillary tract due to s/p ercp Pertinent ROS: Denies headache, dizziness Denies chest pain, palpitations Denies cough or shortness of breath Denies abdominal pain, nausea or vomiting. - Constitutional Vitals: Vital Signs Temp Pulse Resp BP Pulse Ox 97.6 F 93 H 12 99/66 92 04/07/18 06:59 04/07/18 07:21 04/07/18 07:21 04/07/18 06:59 04/07/18 07:20 Period Temp Pulse Resp BP Sys/[place] Pulse Ox Last 24 Hr 97.6 F-102.2 F 84-137 12-32 92-172/63-105 92-99 Intake and Output 04/06/18 04/07/18 04/07/18 21:59 05:59 13:59 Intake Total 201 / 201 400 / 400 50 / 50 Output Total 375 / 375 Balance 201 / 201 25 / 25 50 / 50 Weight 140 lb Intake & Output: Intake & Output 04/06/18 04/07/18 04/07/18 21:59 05:59 13:59 Intake Total 201 / 201 400 / 400 50 / 50 Output Total 375 / 375 Balance 201 / 201 25 / 25 50 / 50 Weight 140 lb Intake: IV 201 / 201 300 / 300 50 / 50 Sodium Chloride 0.9% 250 ml @ 250 / 250 Wide Open IV [facility] Rx#: [id number] Dextrose 5%-1/2Ns IV Solution 1 101 / 101 ,000 ml @ 84 mls/hr IV .[id number] [facility] Rx#:[id number] Zosyn 4.5 gm In Dextrose 5% in 50 / 50 50 / 50 Water 50 ml @ 100 mls/hr IV Q6H [facility] Rx#:[id number] Oral 100 / 100 Output: Urine Catheter Amount 375 / 375 Other: Stool Size Small Stool Color Brown Stool Consistency Soft Exam: Constitutional; Afebrile, cooperative, alert, not in distress. Eyes- No icterus, , No periorbital swelling Ears- Ext ear normal, hearing normal to conversation. Neck- Midline trachea, supple Respiratory system: Air Entry equal on both sides, decreased at bases, No crackles , mild exp wheezing, no rhonchi. CVS- Rate rhythm regular, S1,S2 heard, no gallop, no rub. Abdomen- Soft nontender abdomen, no organomegaly, no tenderness, no guarding or rigidity, colostomy bag in place. OCEANOLOGIST- AOOx3, moving all extremities, no gross focal deficit noted. Medical - PN: Obj Da - Labs CBC & Chem 7: 04/07/18 04:20 04/07/18 04:20 Labs: Abnormal Lab Results 04/07/18 04/07/18 04/06/18 04:20 04:20 20:51 WBC 17.2 H Hgb 11.2 L Hct 33.3 L MCV MCH Gran % 96.6 H Lymph % (Auto) 1.3 L [place] % (Auto) Gran # 16.6 H Lymph # (Auto) 0.2 L [place] # (Auto) Seg Neutrophils % Lymphocytes % RBC Morphology Microcytosis Sodium Chloride Carbon Dioxide 18 L POC Total CO2 Anion Gap 18.0 H Glucose 151 H POC Glucose POC WB Ioniz Calcium Total Bilirubin 2.9 H Direct Bilirubin 2.3 H GGT 544 H AST 163 H ALT 192 H Alkaline Phosphatase 514 H Total Creatine Kinase NT-Pro-B Natriuret Pep 516.7 H Urine Ketones Urine Bacteria 04/06/18 04/06/18 04/06/18 20:51 20:51 20:51 WBC Hgb Hct MCV 79.1 L MCH 25.6 L Gran % 92.9 H Lymph % (Auto) 5.1 L [place] % (Auto) 0.6 L Gran # Lymph # (Auto) 0.3 L [place] # (Auto) 0 L Seg Neutrophils % Lymphocytes % RBC Morphology Microcytosis Sodium Chloride Carbon Dioxide 20 L POC Total CO2 21 L Anion Gap Glucose 157 H POC Glucose 156 H POC WB Ioniz Calcium 1.10 L Total Bilirubin 2.0 H Direct Bilirubin GGT AST 215 H ALT 224 H Alkaline Phosphatase 554 H Total Creatine Kinase NT-Pro-B Natriuret Pep Urine Ketones Urine Bacteria 04/06/18 04/06/18 04/06/18 15:00 14:26 14:26 WBC Hgb Hct MCV MCH Gran % Lymph % (Auto) [place] % (Auto) Gran # Lymph # (Auto) [place] # (Auto) Seg Neutrophils % Lymphocytes % RBC Morphology Microcytosis Sodium 131 L Chloride 93 L Carbon Dioxide 21 L POC Total CO2 Anion Gap 17.0 H Glucose 113 H POC Glucose POC WB Ioniz Calcium Total Bilirubin 1.6 H Direct Bilirubin GGT AST 308 H ALT 253 H Alkaline Phosphatase 592 H Total Creatine Kinase 21 L NT-Pro-B Natriuret Pep Urine Ketones 5/tr A Urine Bacteria Few A 04/06/18 14:26 WBC Hgb 11.8 L Hct 34.2 L MCV 79.2 L MCH Gran % Lymph % (Auto) [place] % (Auto) Gran # Lymph # (Auto) [place] # (Auto) Seg Neutrophils % 88 H Lymphocytes % 7 L RBC Morphology Abnorm A Microcytosis 1+ A Sodium Chloride Carbon Dioxide POC Total CO2 Anion Gap Glucose POC Glucose POC WB Ioniz Calcium Total Bilirubin Direct Bilirubin GGT AST ALT Alkaline Phosphatase Total Creatine Kinase NT-Pro-B Natriuret Pep Urine Ketones Urine Bacteria Meds: Medications Acetaminophen (Tylenol) 650 mg PO Q6HP PRN PRN Reason: PAIN/FEVER > 101 Albuterol/Ipratropium (Duoneb) 3 ml NEB Q6HRT [facility] Last Admin: 04/07/18 07:17 Dose: 3 ml Famotidine (Pepcid) 20 mg IV Q12 [facility] Last Admin: 04/07/18 08:52 Dose: 20 mg Heparin Sodium (Porcine) (Heparin) 5,000 unit SQ Q12 [facility] Last Admin: 04/07/18 08:54 Dose: 5,000 unit Hydromorphone HCl (Dilaudid) 0.5 mg IV Q2HP PRN PRN Reason: PAIN LEVEL > 6 Levofloxacin (Levaquin) 250 mg in 50 mls @ 50 mls/hr IV Q24H [facility] Last Admin: 04/07/18 08:52 Dose: 50 mls/hr Piperacillin Sod/Tazobactam (Sod 4.5 gm/ Dextrose) 50 mls @ 100 mls/hr IV Q6H [facility] Last Infusion: 04/07/18 07:19 Dose: Infused Lorazepam (Ativan) 0.5 mg IV Q4HP PRN PRN Reason: ANXIETY/SEDATION Methylprednisolone Sodium Succinate (Solu-Medrol) 62.5 mg IV Q8 [facility] Last Admin: 04/07/18 07:31 Dose: 62.5 mg Naloxone HCl (Narcan) 0.1 mg IV Q2MIN PRN PRN Reason: Opiate Reversal Ondansetron HCl (Zofran) 4 mg IV Q6HP PRN PRN Reason: Nausea And Vomiting Oxycodone HCl (Roxicodone) 5 mg PO Q4HP PRN PRN Reason: PAIN LEVEL 3-6 Sodium Chloride (Saline Flush) 10 ml IV Q8 [facility] Last Admin: 04/07/18 06:35 Dose: 10 ml Vancomycin HCl (Vancomycin Per Pharmacy) 1 order IV UD [facility] Medical - PN: A/P - Time Spent With Patient Total time spent is greater than 50% in coordination of care (as documented) at patient's floor/unit and/or counseling patient: - Narrative A/P Narrative: A/P Ascending Cholangitis- Elevated lft, chills, low grade temp, dilated biliarry ducts, urgent ERCP by Dr aguilar, IV zosyn., lft still high but ast/alt trending down Pulmonary infiltrates- Acute pna, vs pulmonary infiltrates secondary to sepsis from other source (Early ards), IV vanco and zosyn for now. cultures sent, COPD exacerbation- justin exp wheezing yesterday and some today, IV steroids, may explain the leucocytosis, duonebs, air entry better today/ wheezing less compared to last night. Pt on tele for now, will d/c same once remains stable by this pm Sepsis- low grade temp, fever, GI source possible/ vs 0ulmonary source. Chronic pain/ Anxiety- resume home meds. insomnia DVT hep sq Diet liquid diet. advance as tolerated. Full code.
--- NOTE | 2018-04-07 12:53 | General Surgery Progress Note ---
Subjective Patient reports: feels better Narrative: Note initiated : 04/07/18 at 12:50 pm Service Date, if different from initiated Date: [] Patient: Caroline Bellamy 77 y/o F admitted on 04/06/18 for Body Aches/ Ascending Cholangitis, Sepsis. Chief Complaint: [Ascending cholangitis] Pt presented to ED yesterday with vague malaise and myalgias and was noted to have cholestasis with biliary dilatation so ERCP was undertaken. However, ERCP did not reveal a common duct stone despite multiple balloon sweeps. Bile appeared normal without purulence. A papillotomy was performed. Today, she is feeling significantly better, but WBC elevated at 17 and bilirubin and alk phos have slightly worsened at 2.9 and 544 respectively. Transaminases remain elevated. She is on Zosyn and Vancomycin. Home meds reviewed for possible drug- induced cholestasis and perhaps certrizine could be at trigger, but is felt to be less likely. Objective Temp Pulse Resp BP Pulse Ox 97.6 F 88 18 82/58 94 04/07/18 06:59 04/07/18 12:28 04/07/18 12:28 04/07/18 12:28 04/07/18 12:28 - Additional Data Intake & Output - Last 24 hours: Intake & Output 04/05/18 04/06/18 04/07/18 04/08/18 05:59 05:59 05:59 05:59 Intake Total 601 / 601 50 / 50 Output Total 375 / 375 Balance 226 / 226 50 / 50 Weight 140 lb - General physical appearance no distress, no pain - Eyes icteric - Respiratory normal respiratory effort - Labs 04/07/18 04:20 04/07/18 04:20 Diabetes panel 04/06/18 04/06/18 04/07/18 Range/Units 14:26 20:51 04:20 Sodium 131 L 134 136 (133-145) mmol/L Potassium 4.2 4.2 4.0 (3.3-5.1) mmol/L Chloride 93 L 98 100 (96-108) mmol/L Carbon Dioxide 21 L 20 L 18 L (22-30) mmol/L BUN 14 13 17 (8-23) mg/dl Creatinine 0.7 0.8 0.7 (0.6-1.1) mg/dl Glucose 113 H 157 H 151 H (70-105) mg/dL Calcium 9.3 8.9 8.7 (8.6-10.4) mg/dl AST 308 H 215 H 163 H (0-37) U/l ALT 253 H 224 H 192 H (0-40) U/l Alkaline Phosphatase 592 H 554 H 514 H (39-117) U/L Total Protein 7.0 7.1 6.2 (5.9-8.4) gm/dL Albumin 3.9 3.8 3.4 (3.2-5.2) gm/dL Triglycerides 61 (<150) mg/dl Calcium panel 04/06/18 04/06/18 04/07/18 Range/Units 14:26 20:51 04:20 Calcium 9.3 8.9 8.7 (8.6-10.4) mg/dl Phosphorus 3.5 (2.7-4.5) mg/dL Albumin 3.9 3.8 3.4 (3.2-5.2) gm/dL Pituitary panel 04/06/18 04/06/18 04/07/18 Range/Units 14:26 20:51 04:20 Sodium 131 L 134 136 (133-145) mmol/L Potassium 4.2 4.2 4.0 (3.3-5.1) mmol/L Chloride 93 L 98 100 (96-108) mmol/L Carbon Dioxide 21 L 20 L 18 L (22-30) mmol/L BUN 14 13 17 (8-23) mg/dl Creatinine 0.7 0.8 0.7 (0.6-1.1) mg/dl Glucose 113 H 157 H 151 H (70-105) mg/dL Calcium 9.3 8.9 8.7 (8.6-10.4) mg/dl Adrenal panel 04/06/18 04/06/18 04/07/18 Range/Units 14:26 20:51 04:20 Sodium 131 L 134 136 (133-145) mmol/L Potassium 4.2 4.2 4.0 (3.3-5.1) mmol/L Chloride 93 L 98 100 (96-108) mmol/L Carbon Dioxide 21 L 20 L 18 L (22-30) mmol/L BUN 14 13 17 (8-23) mg/dl Creatinine 0.7 0.8 0.7 (0.6-1.1) mg/dl Glucose 113 H 157 H 151 H (70-105) mg/dL Calcium 9.3 8.9 8.7 (8.6-10.4) mg/dl Total Bilirubin 1.6 H 2.0 H 2.9 H (0.0-1.0) mg/dL AST 308 H 215 H 163 H (0-37) U/l ALT 253 H 224 H 192 H (0-40) U/l Alkaline Phosphatase 592 H 554 H 514 H (39-117) U/L Total Protein 7.0 7.1 6.2 (5.9-8.4) gm/dL Albumin 3.9 3.8 3.4 (3.2-5.2) gm/dL Assessment and Plan (1) Ascending cholangitis Status: Acute Current Visit: Yes - Narrative A/P Narrative: Discussed case with Dr. Collins, hospitalist. If patient's condition worsens ( increasing jaundice, chills, rigors), will place nasobiliary tube to improve drainage. For now, continue antibiotics and monitor laboratory studies. - Time Spent With Patient Total time spent is greater than 50% in coordination of care (as documented) at patient's floor/unit and/or counseling patient: less than 15 minutes
[2018-04-07 17:57] LABS: ALT/SGPT 170 U/l (0-40); Albumin 3.5 gm/dL (3.2-5.2); Albumin/Globulin Ratio 1.2 (1.0-2.3); Alkaline Phosphatase 452 U/L (39-117); Blood Urea Nitrogen 19 mg/dl (8-23)
[2018-04-08] MEDS: PIPERACILLIN SODIUM/TAZOBACTAM 4.5 GM in DEXTROSE 5% IN WATER 50 ML IV SCH ×2 (00:06→06:03)
[2018-04-08] MEDS: IPRATROPIUM/ALBUTEROL 3 ML AMPUL.NEB NEB SCH ×2 (03:02→07:21)
[2018-04-08 05:37] LABS: Basophils # (Auto) 0 K/mcL (0.0-0.3); Basophils % (Auto) 0 % (0.0-2.0); Eosinophils # (Auto) 0 K/mcL (0.0-0.7); Eosinophils % (Auto) 0 % (0.0-7.0); Granulocytes % (Auto) 93.3 % (38.0-78.0); Lymphocytes # (Auto) 0.3 K/mcL (1.5-4.8); Lymphocytes % (Auto) 3.4 % (15.5-49.0); Mean Cell Volume 81.1 fL (80.0-100.0); Mean Corpuscular HGB Conc 33.4 g/dL (31.0-36.0); Mean Corpuscular Hemoglobin 27.1 pg (26.0-34.0); Monocytes # (Auto) 0.3 K/mcL (0.1-0.9); Monocytes % (Auto) 3.3 % (1.0-12.0); Platelet Count 225 K/mcL (140-440); Red Cell Distribution Width 14.3 % (11.5-14.5)
[2018-04-08] MEDS: methylPREDNISolone SOD SUCC 125 MG/2 ML VIAL IV SCH (05:56)
[2018-04-08] MEDS: 0.9 % SODIUM CHLORIDE 10 ML SYRINGE IV SCH (05:56)
[2018-04-08 05:57] LABS: ALT/SGPT 148 U/l (0-40); Albumin 3.1 gm/dL (3.2-5.2); Albumin/Globulin Ratio 1.1 (1.0-2.3); Alkaline Phosphatase 372 U/L (39-117); Bilirubin,Direct 0.3 mg/dL (0.0-0.3); Blood Urea Nitrogen 21 mg/dl (8-23); Gamma Glutamyl Transpeptidase 460 U/L (5-36)
--- NOTE | 2018-04-08 08:11 | XRay Report ---
HISTORY: Pneumonia and ARDS FINDINGS: There are moderate generalized alveolar opacities in both lungs. The pattern has shifted since yesterday. There has been mild improvement around the left hilum but there is increasing consolidation in the right lower lobe and to a lesser extent in the medial basal segment of the left lower lobe. Small bilateral pleural effusions are present. The heart size remains within normal limits. Pulmonary vessels are obscured by the widespread infiltrates. No pneumothorax is present. IMPRESSION: Widespread bilateral infiltrates. Overall this has become worse and may be due to ARDS, pneumonia, pulmonary edema or a combination of the above Interpreted and Authenticated by: Varghese Reich 04/08/18
[2018-04-08] MEDS: HEPARIN 5,000 UNIT/ML VIAL SQ SCH (10:06)
[2018-04-08] MEDS: FAMOTIDINE/PF 20 MG/2 ML VIAL IV SCH (10:07)
[2018-04-08] MEDS: LEVOFLOXACIN 250 MG/50 ML BAG IV SCH (10:25)
--- NOTE | 2018-04-08 10:58 | Discharge Summary ---
Medical - DS: Prov Patient information: Note initiated : 04/08/18 at 10:51 am Service Date, if different from initiated Date: [] Patient: Caroline Bellamy 77 y/o F admitted on 04/06/18 for Body Aches/ Ascending Cholangitis, Sepsis. Chief Complaint: [] Date of admission: 04/06/18 18:16 Discharge date: 04/08/18 Primary care physician: [place] Mohamud Admitting clinician: Henrique Collins Discharging clinician: Henrique Collins Medical - DS: Meds - Discharge Medications Prescriptions: Levofloxacin [Levaquin] 750 mg PO DAILY #5 tab metroNIDAZOLE [Metronidazole] 500 mg PO TID #15 tab predniSONE [Prednisone] 40 mg PO QAC #6 tab Active and Home Medications: Home Medications DULoxetine [Cymbalta] 30 mg PO DAILY #30 cap 01/15/18 [Rx Confirmed 03/30/18 Last Taken Unknown] zolpidem 10 mg tablet 5 mg PO QHS #30 tab 02/11/18 [Rx Confirmed 03/30/18 Last Taken Unknown] albuterol sulfate HFA 90 mcg/actuation aerosol inhaler 1 inh INHALATION ONCE PRN g 03/30/18 [History Confirmed 03/30/18 Last Taken Unknown] Medical - DS: Hosp Hospital course: Ms. Adiel Cardoso is a 77 year old F with multiple bowel surgeries, history of colostomy presents to the hospital today for not feeling well for the last few days. The patient notes that she has been sick generalized weakness malaise arthralgia for the last 3 days. Since yesterday she is also having decreased appetite nausea as well as chills and rigors. The patient's family decided to bring her in today to the hospital. This morning she is did not eat much and had continuous retching with some emesis bilious in nature. The patient denies any other complaints. No sick contacts. She has been taking Claritin over the last 3-4 days. She has a colostomy bag which is draining no blood reported. She denies any nausea or abdominal pain no change in symptomatology associated with food. She has history of cholecystectomy done. In the ER patient had a low-grade temperature of 99.3, mildly tachycardic at 105 blood pressure was stable, the patient had a normal white blood cell count, hemoglobin 11.8, lactic acid normal, patient had a sodium of 131 potassium 4.2 total bilirubin 1.6 AST 308 ALT 253 alkaline phosphatase 592. Significant elevation from the previous labs. GI was consulted, Dr. Pack will be performing an ERCP soon. Patient had an ultrasound done which showed dilated CBD as well as intra-and extrahepatic biliary ducts she status post cholecystectomy. Ascending cholangitis- s/p ERCP no stone noted, CT abdomen did not show any other intraabdominal pathology, the patient had transient elevation of lft post procedure, but her bilirubin came back to normal on d2 post procedure, ast, alt and alk phos also trending down and patient feeling a lot better. microbiology is negative. Pulmonary infiltrates- The patient had one episode of shortness of breath, with worsening pulmonary infiltrates post procedure. CXR showed some what worsening infiltrtes. pna vs chf vs ards? The patient clinically did not have any e/o chf, or pna, none the less she luis on broad spectrum abx, today at the time of discharge, she is back to baseline from her respiratory stand point clinically, off oxygen and able to ambulate well. Her CXR has reported some redistribution of fluid and perhaps some worsening on the right side, but clinically the patient has shown significant improvement, CXR findings likely lagging the patients clinical improvement. Patient is anxious to go home. The patient is ng 1400cc since admission, her bnp also although mildly elevated in 500/s is significantly lower than in the past. CLInically not CHF. The patient will be discharged home with oral antibiotics, levofloxacin and metronidazole, which would cover her well from GI and pulmonary stand point. The rest of the stay in the hospital was unventful, No changes made to her [facility] home med list. Discharge diagnosis: Ascending cholangitis, Pneumonia? - Time Spent with Patient Total time spent providing and/or coordinating discharge services: Greater than 30 minutes Medical - DS: Exam - Constitutional Vitals: Vital Signs Temp Pulse Pulse Resp BP BP Pulse Ox 04/08/18 07:31 98.8 F 20 100/70 96 04/08/18 07:21 80 18 04/08/18 04:00 98.8 F 92 H 22 04/07/18 23:47 99 F 99 H 22 98/63 95 04/07/18 20:45 94 04/07/18 20:00 98.9 F 102 H 20 101/70 93 04/07/18 18:58 18 04/07/18 13:10 90 14 04/07/18 12:28 88 18 82/58 94 Intake and Output 04/07/18 04/08/18 04/08/18 21:59 05:59 13:59 Intake Total 100 / 100 50 / 50 50 / 50 Output Total 1000 / 1000 950 / 950 Balance 100 / 100 -950 / -950 -900 / -900 Intake: IV 100 / 100 50 / 50 50 / 50 Zosyn 4.5 gm In Dextrose 5% in 100 / 100 50 / 50 50 / 50 Water 50 ml @ 100 mls/hr IV Q6H [facility] Rx#:[id number] Output: Urine Catheter Amount 1000 / 1000 950 / 950 Other: Stool Size Large Stool Consistency Liquid # Bowel Movements 1 Weight 138 lb Additional comments: Constitutional; Afebrile, cooperative, alert, not in distress. Eyes- No icterus, , No periorbital swelling Ears- Ext ear normal, hearing normal to conversation. Neck- Midline trachea, supple Respiratory system: Air Entry equal on both sides, No crackles or wheezing, no rhonchi. CVS- Rate rhythm regular, S1,S2 heard, no gallop, no rub. Abdomen- Soft nontender abdomen, no organomegaly, no tenderness, no guarding or rigidity, EMT P- AOOx3, moving all extremities, no gross focal deficit noted. Medical - DS: Data Labs on day of discharge: Labs from last 24 hours 04/08/18 04/08/18 04/07/18 04:00 04:00 16:54 WBC 9.3 RBC 3.70 L Hgb 10.0 L Hct 30.0 L MCV 81.1 MCH 27.1 MCHC 33.4 RDW 14.3 Plt Count 225 MPV 9.1 Gran % 93.3 H Lymph % (Auto) 3.4 L [place] % (Auto) 3.3 Eos % (Auto) 0 Baso % (Auto) 0 Gran # 8.7 H Lymph # (Auto) 0.3 L [place] # (Auto) 0.3 Eos # (Auto) 0 Baso # (Auto) 0 Sodium 133 134 Potassium 3.8 3.8 Chloride 99 99 Carbon Dioxide 22 21 L Anion Gap 12.0 14.0 BUN 21 19 Creatinine 0.7 0.9 GFR Calculation 85 63 Glucose 197 H 197 H Uric Acid 4.0 Calcium 8.9 9.0 Phosphorus 2.7 Magnesium 2.0 Total Bilirubin 0.7 1.4 H Direct Bilirubin 0.3 GGT 460 H AST 105 H 123 H ALT 148 H 170 H Alkaline Phosphatase 372 H 452 H Lactate Dehydrogenase 210 Total Protein 5.8 L 6.5 Albumin 3.1 L 3.5 Globulin 2.7 3.0 Albumin/Globulin Ratio 1.1 1.2 Triglycerides 65 Preliminary micro results at discharge 04/06/18 16:10 Blood Culture - Preliminary Blood 04/06/18 15:27 Blood Culture - Preliminary Blood Medical - DS: A/P - Patient/Caregiver Discharge Instructions Activity: increase activity as tolerated Diet: Regular Diet Additional Instructions: Take prendisone 40mg (2 x 20mg tabs) with food for three more days Take levofloxacin and metronidazole for another 5 days, these are the antibiotics for the infection Should you develop worsening shortness of breath, fever, abdominal pain, or any other acute concern, please come back to ER Follow up with PCP in 1 week - Follow up Plan Follow up with: Montana Mohamud MD [Primary Care Provider] - 04/13/18 2:40 pm Disposition: Home, Self-Care Prognosis: Fair Rehab Potential: Fair I certify that the patient requires SNF services: No Overall status at discharge: patient is progressing back to baseline
--- NOTE | 2018-04-12 16:04 | ERCP Procedure Note ---
ERCP Procedure Notes - Procedure Information Patient information: Note initiated : 04/12/18 at 4:02 pm Service Date: 04/06/18 Patient: Caroline Bellamy 77 y/o F admitted on 04/06/18 for Body Aches/ Ascending Cholangitis, Sepsis. Pre-op diagnosis general: Ascending cholangitis. Post-op diagnosis general: Ascending cholangitis. Procedure: ERCP Procedure narrative: The procedures, alternatives and risks were discussed with the patient and the patient's questions were answered. With endoscopist-administered intravenous sedation, the Olympus side viewing operating duodenoscope was introduced into the esophagus and advanced to the second part of the duodenum without difficulty The ampulla of Vater has identified. Papillotomy was performed. Papilla appeared normal. The bile duct was selectively cannulated taking care to avoid the pancreatic duct and cholangiogram obtained. The bile duct was markedly dilated. There was no stone found. The duct was swept with a balloon multiple times. The scope was withdrawn. Assessment: Ascending cholangitis. Query passed common bile duct stone.
== END 2018-04-08 14:00 | disposition home or self-care (01) | DRG 871 ==
LOC: ED 14:05 → MEDSUR 18:16 → SUR 18:16 → MEDSUR 18:25 → ICU 04-07 12:41
PROVIDERS: ADMIT Internal Medicine; ATTEND Internal Medicine
PROC: ERCPPAP (ICD-10-PCS; 2018-04-06 18:00)